=== PATIENT | male | born 1950 | race Caucasian/White ===

== ENCOUNTER 2018-02-28 18:03 | Emergency (ER) | payer OTHER ==
--- OUTSIDE RECORDS SUMMARY | 2018-02-28 18:05 | XMS REPORT | Clinical Summary ---
:1950 Author Organization [facility] Address [address] [place] [address] Phone Care Team Providers Name Role Phone Unavailable Primary Care Provider Unavailable Allergies No Known Allergies Current Medications Prescription Sig. Disp. Refills Start Date End Date Status atorvastatin Take 20 mg by Active (LIPITOR) 20 MG mouth daily. tablet amLODIPine (NORVASC) Take 1 tablet 0 02/14/2018 02/14/2019 Active 10 MG tablet (10 mg total) by mouth daily. lisinopril Take 1 tablet 0 02/14/2018 02/14/2019 Active (PRINIVIL,ZESTRIL) 20 (20 mg total) MG tablet by mouth daily. QUEtiapine (SEROQUEL) Take 1 tablet 0 02/14/2018 03/16/2018 Active 25 MG tablet (25 mg total) by mouth 2 (two) times daily for 30 days. senna-docusate Take 1 tablet 0 02/14/2018 02/14/2019 Active (SENOKOT S) 8.6-50 mg by mouth 2 per tablet (two) times daily. metoprolol Take 1 tablet 0 02/14/2018 02/14/2019 Active (TOPROL-XL) 100 MG 24 (100 mg total) hr tablet by mouth daily. enalapril (VASOTEC) Take 10 mg by 02/14/2018 Discontinued 10 MG tablet mouth daily. metoprolol Take 25 mg by 02/14/2018 Discontinued (LOPRESSOR) 25 MG mouth 2 (two) tablet times daily. fenofibrate (TRICOR) Take 145 mg by 02/14/2018 Discontinued 145 MG tablet mouth daily. montelukast Take 10 mg by 02/14/2018 Discontinued (SINGULAIR) 10 mg mouth nightly. tablet Active Problems Problem Noted Date Essential hypertension 02/11/2018 Aspiration pneumonia (HCC) 02/11/2018 Metabolic encephalopathy 02/11/2018 Oropharyngeal dysphagia 02/11/2018 ICH (intracerebral hemorrhage) ([facility]) 01/31/2018 Encounters Date Type Specialty Care Team Description 02/12/2018 Procedure Pass Gastroenterology 02/11/2018 Anesthesia Event Gastroenterology Harrison Pepper MD 02/11/2018 Procedure Pass Gastroenterology 02/10/2018 Anesthesia Event Gastroenterology Elysia Guillen, CLOTH INSPECTOR 02/06/2018 Anesthesia Event Gastroenterology Tang Ortiz CRNA 02/06/2018 Procedure Pass Gastroenterology 02/02/2018 Orders Only General Internal Medicine 01/31/2018 Hospital Intensive Care ButchYosvany miller Nontraumatic - Encounter MD Carlos cortical hemorrhage 02/14/2018 Giuseppe Forte of left cerebral MD Darrel hemisphere Baljeet Rueda ([facility]);Acute [place], encephalopathy;Margoth Emmanuel MD red consciousness [facility], Rebecca Coley MD 01/31/2018 Anesthesia Event Mary Kate Hallman, JONATHAN 01/31/2018 Procedure Pass 01/31/2018 Surgery Dion Gruber MD CRANIOTOMY after 02/27/2017 Social History Tobacco Use Types Packs/Day Years Used Date Never Assessed Sex Assigned at Date Recorded Not on file Last Filed Vital Signs Vital Sign Reading Time Taken Blood Pressure 153/79 02/14/2018 10:10 AM CDT Pulse 68 02/14/2018 10:08 AM CDT Temperature 36.5 C (97.7 F) 02/14/2018 7:52 AM CDT Respiratory Rate 21 02/14/2018 10:08 AM CDT Oxygen Saturation 98% 02/14/2018 10:08 AM CDT Inhaled Oxygen Concentration - - Weight 54.4 kg (119 lb 14.9 oz) 02/14/2018 4:00 AM CDT Height 170.2 cm (5' 7") 02/03/2018 2:20 PM CDT Body Mass Index 18.78 02/14/2018 4:00 AM CDT Plan of Treatment Not on file Implants Implanted Type Area Health Professor Device Expiration Model / Identifier Date Serial / Lot Scr Un3 [place] Self Drl 1.5x4mm [id number] - [id number] Fracture/ Left: RADHIKA: CRANIOMA [id number] / Implanted: Qty: 6 on 01/31/2018 by Dion Gruber MD Fixation Head XILLOFACIAL / Plt Rigid 2h [id number] - [id number] Fracture/ Left: RADHIKA:CRANIOMA [id number] / Implanted: Qty: 3 on 02/01/2018 by Dion Gruber MD Fixation Head XILLOFACIAL / Cath Bactiseal Evd [id number] - [id number] Neuro Left: J &J:CODMAN 2017 [id number] / Implanted: Qty: 1 on 02/01/2018 by Dion Gruber MD Head & SHURTLE / [id number] Procedures Procedure Name Priority Date/Time Associated Diagnosis Comments CRANIOTOMY 01/31/2018 8:00 PM CDT LEFT-SIDED INTRACRANAL SUBDURAL HEMATOMA after 02/27/2017 Results RHYTHM STRIP - SCAN (02/17/2018 2:00 PM)ECG 12 lead (02/14/2018 7:09 AM)Only the most recent of8 resultswithin the time period is included. Specimen Performing Laboratory Prepmatic Narrative Ventricular Rate 61 BPM Atrial Rate 61 BPM P-R Interval 156 ms QRS Duration 88 ms Q-T Interval 446 ms QTC Calculation(Bazett) 448 ms P [place] 46 degrees R [place] -4 degrees T [place] 7 degrees Normal sinus rhythm Moderate voltage criteria for LVH, may be normal variant Borderline ECG When compared with ECG of 13-FEB-2018 07:24, No significant change was found Confirmed by MD MARTINEZ MAJID ([id number]) on 02/14/2018 2:23:33 PM Procedure Note Interface, External Ris In - 02/14/2018 2:23 PM CDT Ventricular Rate 61 BPM Atrial Rate 61 BPM P-R Interval 156 ms QRS Duration 88 ms Q-T Interval 446 ms QTC Calculation(Bazett) 448 ms P [place] 46 degrees R [place] -4 degrees T [place] 7 degrees Normal sinus rhythm Moderate voltage criteria for LVH, may be normal variant Borderline ECG When compared with ECG of 13-FEB-2018 07:24, No significant change was found Confirmed by MD MARTINEZ MAJID ([id number]) on 02/14/2018 2:23:33 PM POC-Glucose meter (02/14/2018 5:18 AM)Only the most recent of42 resultswithin the time period is included. Component Value Ref Range POC-Glucose Meter 105Comment: TESTED AT [address] [place] 70 - 110 mg/dL [address] Specimen Performing Laboratory Blood [address] [address] CBC with platelet count + automated diff (02/14/2018 5:14 AM)Only the most recent of15 resultswithin the time period is included. Component Value Ref Range WBC 9.4 3.5 - 10.5 K/L RBC 4.25 (L) 4.63 - 6.08 M/L Hemoglobin 13.7 13.7 - 17.5 GM/DL Hematocrit 40.6 40.1 - 51.0 % MCV 95.5 (H) 79.0 - 92.2 fL MCH 32.2 25.7 - 32.2 pg MCHC 33.7 32.3 - 36.5 GM/DL RDW 13.0 11.6 - 14.4 % Platelets 321 150 - 450 K/CU MM MPV 11.0 9.4 - 12.4 fL nRBC 0 0 - 0 /100 WBC % Neutros 72 % % Lymphs 17 % % Monos 10 % % Eos 0 % % Baso 0 % # Neutros 6.77 (H) 1.78 - 5.38 K/L # Lymphs 1.57 1.32 - 3.57 K/L # Monos 0.91 (H) 0.30 - 0.82 K/L # Eos 0.00 (L) 0.04 - 0.54 K/L # Baso 0.04 0.01 - 0.08 K/L Immature Granulocytes-Relative 1 0 - 1 % Specimen Performing Laboratory Blood [address] [address] CBC with platelet count + automated diff (02/14/2018 5:14 AM)Only the most recent of15 resultswithin the time period is included. Specimen Performing Laboratory Blood Narrative The following orders were created for panel order CBC with platelet count + automated diff. Procedure Abnormality Status --------- ------ CBC with platelet count ...[[id number]]AbnormalFinal result Please view results for these tests on the individual orders. Magnesium (02/14/2018 5:14 AM)Only the most recent of15 resultswithin the time period is included. Component Value Ref Range Magnesium 2.0 1.6 - 2.6 mg/dL Specimen Performing Laboratory Blood [address] [address] Basic Metabolic Panel (02/14/2018 5:14 AM)Only the most recent of15 resultswithin the time period is included. Component Value Ref Range Sodium 143 136 - 145 meq/L Potassium 3.7 3.5 - 5.1 meq/L Chloride 113 (H) 98 - 107 meq/L CO2 22 22 - 29 meq/L BUN 14 7 - 21 mg/dL Creatinine 0.69 0.57 - 1.25 mg/dL Glucose 97 70 - 105 mg/dL Calcium 9.0 8.4 - 10.2 mg/dL EGFR 114Comment: ESTIMATED GFR IS NOT ACCURATE mL/min/1.73 sq m CREATININE CLEARANCE IN PREDICTING GLOMERULAR FILTRATION RATE. ESTIMATED GFR IS NOT APPLICABLE FOR DIALYSIS PATIENTS. Specimen Performing Laboratory Blood [address] [address] [place] esoph swallow funct with cine video (02/11/2018 12:10 PM) Specimen Performing Laboratory GE [facility] Narrative FINAL REPORT INDICATION: Dysphagia. TECHNIQUE: The patient was administered various consistencies of liquid and food mixed with barium. Swallowing was observed with the speech pathologist present. FINDINGS: There was laryngeal penetration with thin and nectar consistencies. No laryngeal penetration demonstrated with honey consistency. Please see report written by the speech pathologist for detailed report and recommendations. Fluoroscopy time: 1.3 minutes. A single cine clip of the patient swallowing was acquired. IMPRESSION: Laryngeal penetration. Signed: Connor Lockett MD Report Verified Date/Time:02/11/2018 13:56:12 Reading Location: [facility] C013X Ortho Consult Reading Room Procedure Note Interface, External Ris In - 02/11/2018 1:58 PM CDT FINAL REPORT INDICATION: Dysphagia. TECHNIQUE: The patient was administered various consistencies of liquid and food mixed with barium. Swallowing was observed with the speech pathologist present. FINDINGS: There was laryngeal penetration with thin and nectar consistencies. No laryngeal penetration demonstrated with honey consistency. Please see report written by the speech pathologist for detailed report and recommendations. Fluoroscopy time: 1.3 minutes. A single cine clip of the patient swallowing was acquired. IMPRESSION: Laryngeal penetration. Signed: Connor Lockett MD Report Verified Date/Time: 02/11/2018 13:56:12 Reading Location: [facility] C013X Ortho Consult Reading Room Vancomycin level, trough (02/10/2018 1:36 AM)Only the most recent of2 resultswithin the time period is included. Component Value Ref Range Vancomycin Tr 7.7 (L) 10.0 - 20.0 ug/mL Specimen Performing Laboratory Blood - Arm, [address] [address] Manual Differential (02/08/2018 5:10 AM)Only the most recent of2 resultswithin the time period is included. Component Value Ref Range % Neutros (manual) 81 % % Lymphs (manual) 6 % % Monos (manual) 9 % % Bands (manual) 4 0 - 10 % # Neutros (manual) 10.69 (H) 1.80 - 8.00 K/L # Lymphs (manual) 0.79 (L) 1.48 - 4.50 K/L # Monos (manual) 1.19 0.00 - 1.30 K/L # Bands (manual) 0.5 0.0 - 0.8 K/L Total Counted 100 Bands plus Segmented Neutrophils 11.22 WBC Morphology Normal RBC Morphology Normal Large Platelet Present Specimen Performing Laboratory Blood - Arm, [address] [address] aPTT (02/07/2018 5:10 AM)Only the most recent of2 resultswithin the time period is included. Component Value Ref Range PTT 32.3 22.5 - 36.0 seconds Specimen Performing Laboratory Blood [address] [address] Prothrombin time/INR (02/07/2018 5:10 AM)Only the most recent of3 resultswithin the time period is included. Component Value Ref Range Protime 17.4 (H) 11.7 - 14.7 seconds INR 1.4 <=5.9 Specimen Performing Laboratory Blood [address] [address] Narrative RECOMMENDED COUMADIN/WARFARIN INR THERAPY RANGES STANDARD DOSE: 2.0 - 3.0 Includes: PROPHYLAXIS for venous thrombosis, systemic embolization; TREATMENT for venous thrombosis and/or pulmonary embolus. HIGH RISK: Target INR is 2.5-3.5 for patients with mechanical heart valves. Urinalysis w/Microscopic (02/06/2018 11:48 PM) Component Value Ref Range Color, UA Yellow Clarity, UA Hazy Specific [place], UA 1.030 1.001 - 1.035 pH, UA 6.0 5.0 - 8.0 Protein, UA Negative Negative Glucose, UA Negative Negative Ketones, UA Negative Negative Bilirubin, UA Negative Negative Blood, UA Small (A) Negative Nitrite, UA Negative Negative Leukocytes, UA Trace (A) Negative Urobilinogen, UA 0.2 0.2 - 1.0 mg/dL RBC, UA 1 /HPF WBC, UA 2 /HPF Bacteria, UA Rare Specimen Source Specimen Performing Laboratory Urine [address] [address] Urine culture (02/06/2018 11:48 PM) Component Value Ref Range Result >100,000 col/mL Citrobacter werbinanni (A) Specimen Performing Laboratory Urine - Urine, Katz [address] [address] Organism Antibiotic Method Susceptibility Citrobacter holdeni Amikacin <=2: Susceptible Citrobacter holdeni Aztreonam <=1: Susceptible Citrobacter jessicakmanni Cefepime <=1: Susceptible Citrobacter werkmanni Cefoxitin >=64: Resistant Citrobacter werkmcharlottei Ceftazidime <=1: Susceptible Citrobacter jessicakmanni Ceftriaxone <=1: Susceptible Citrobacter werkmanni Ertapenem <=0.5: Susceptible Citrobacter werkmanni Gentamicin <=1: Susceptible Citrobacter werkmanni Levofloxacin 0.5: Susceptible Citrobacter werkmanni Meropenem <=0.25: Susceptible Citrobacter werkmanni Nitrofurantoin <=16: Susceptible Citrobacter werkmanni Piperacillin + Tazobactam <=4: Susceptible Citrobacter werkmanni Tetracycline <=1: Susceptible Citrobacter werkmanni Tobramycin <=1: Susceptible Citrobacter werkmanni Trimethoprim + Sulfamethoxazole <=20: Susceptible Blood culture (02/06/2018 11:07 PM)Only the most recent of2 resultswithin the time period is included. Component Value Ref Range Result No growth in 5 days Specimen Performing Laboratory Blood - Arm, Left [facility] [address] [place] [id number] XR chest 1 view portable / bedside (02/06/2018 9:00 PM)Only the most recent of3 resultswithin the time period is included. Specimen Performing Laboratory GE [facility] Narrative FINAL REPORT RAD, CHEST, 1 VIEW, NON DEPT INDICATION: fever, tachypnea, high risk of aspiration COMPARISON: February 01, 2018 FINDINGS: Portable frontal view of the chest. IMPRESSION: Support Lines: Endotracheal tube is been removed. The nasogastric tube is no longer apparent. A feeding tube is present and projects beyond the lower edge of the imaged volume. Lungs and pleura: Central congestive changes are improved compared to the prior examination. No new consolidation or effusion. No pneumothorax. Heart and mediastinum: Stable contours. Additional findings: None. Signed: JR Wilkerson Robert MD Report Verified Date/Time:02/06/2018 21:27:48 Reading Location: [address] Body Reading Room Procedure Note Interface, External Ris In - 02/06/2018 9:30 PM CDT FINAL REPORT RAD, CHEST, 1 VIEW, NON DEPT INDICATION: fever, tachypnea, high risk of aspiration COMPARISON: February 01, 2018 FINDINGS: Portable frontal view of the chest. IMPRESSION: Support Lines: Endotracheal tube is been removed. The nasogastric tube is no longer apparent. A feeding tube is present and projects beyond the lower edge of the imaged volume. Lungs and pleura: Central congestive changes are improved compared to the prior examination. No new consolidation or effusion. No pneumothorax. Heart and mediastinum: Stable contours. Additional findings: None. Signed: JR Wilkerson Robert MD Report Verified Date/Time: 02/06/2018 21:27:48 Reading Location: [facility] B1 C013Y CT Body Reading Room abdomen / KUB 1 view (02/06/2018 4:33 PM)Only the most recent of2 resultswithin the time period is included. Specimen Performing Laboratory GE RIS Narrative FINAL REPORT AP abdomen HISTORY: Feeding tube COMPARISON: 02/04/2018 IMPRESSION: Feeding tube advanced, remaining along the greater curvature the stomach, not transpyloric. Signed: Christiano Granados MD Report Verified Date/Time:02/06/2018 17:35:54 Reading Location: [facility] Reading Room Procedure Note Interface, External Ris In - 02/06/2018 5:38 PM CDT FINAL REPORT AP abdomen HISTORY: Feeding tube COMPARISON: 02/04/2018 IMPRESSION: Feeding tube advanced, remaining along the greater curvature the stomach, not transpyloric. Signed: Christiano Granados MD Report Verified Date/Time: 02/06/2018 17:35:54 Reading Location: [facility] Reading Room Phosphorus (02/06/2018 5:34 AM)Only the most recent of7 resultswithin the time period is included. Component Value Ref Range Phosphorus 3.2 2.3 - 4.7 mg/dL Specimen Performing Laboratory Blood - Arm, [place] [address] Sputum Culture + Gram Stain (02/05/2018 8:45 PM)Only the most recent of2 resultswithin the time period is included. Component Value Ref Range Result 3+ Staphylococcus aureus (A) Result 4+ Haemophilus influenzae (A)Comment: Beta-lactamase negative Gram Stain Result 4+ WBCs Gram Stain Result 0-5 epithelial cells Gram Stain Result 4+ gram negative coccobacilli Gram Stain Result 4+ gram positive cocci in chains, pairs and clusters Specimen Performing Laboratory Sputum - Suctioned [address] [address] Narrative 3+ Normal respiratory carla present Organism Antibiotic Method Susceptibility Staphylococcus aureus Clindamycin 0.25: Susceptible Staphylococcus aureus Erythromycin <=0.25: Susceptible Staphylococcus aureus Linezolid 2: Susceptible Staphylococcus aureus Oxacillin <=0.25: Susceptible Staphylococcus aureus Rifampin <=0.5: Susceptible Staphylococcus aureus Tetracycline <=1: Susceptible Staphylococcus aureus Trimethoprim + Sulfamethoxazole <=10: Susceptible Staphylococcus aureus Vancomycin <=0.5: Susceptible TRANSFUSION SERVICE REPORT - SCAN (02/05/2018 5:44 PM)Only the most recent of3 resultswithin the time period is included.Potassium (02/04/2018 5:43 PM) Component Value Ref Range Potassium 4.2 3.5 - 5.1 meq/L Specimen Performing Laboratory Blood [address] [address] Narrative Check Serum Phosphorus level 4 hours after IV phosphorus replacement or 8 hours after PO replacement completed. 8 hours after PO replacement completed Prepare RBC (02/04/2018 7:09 AM) Component Value Ref Range Unit ABO O Neg UNIT NUMBER [id number] Status WORK IN PROGRESS Blood Bank Product RED BLOOD CELLS PRODUCT CODE H4108L85 Unit ABO O Neg UNIT NUMBER [id number] Status WORK IN PROGRESS Blood Bank Product RED BLOOD CELLS PRODUCT CODE Q3358I94 CROSSMATCH COMPATIBLE CROSSMATCH COMPATIBLE Specimen Performing Laboratory [facility] [place] CT brain without IV contrast portable (02/03/2018 12:16 PM)Only the most recent of2 resultswithin the time period is included. Specimen Performing Laboratory [employer] Narrative FINAL REPORT CT head without contrast INDICATION: Follow up EVD removal. TECHNIQUE: Contiguous axial images through the head without contrast on the portable CT unit. This exam was performed according to our departmental dose optimization program which includes automated exposure control, adjustment of the mA and/or kV according to patient size and/or use of iterative reconstruction technique. COMPARISON: CT head 02/01/2018, CTA 01/31/2018 FINDINGS: Residual left posterior cerebral parenchyma hemorrhage is stable in volume. Intraventricular rupture is again noted with decreased volume of intraventricular hemorrhage and stable mild hydrocephalus post EVD removal. Subarachnoid hemorrhage has partially resorbed. Left occipital temporal edema and mass effect are stable with mild rightward septum pellucidum shift. There is mildly decreased pneumocephalus contouring the frontal lobes. There is stable possible trace subdural hemorrhage without mass effect. An enteric tube is in place with mild sinus mucosal disease and small volume mastoid air cell fluid. The globes remain proptotic. There is scalp surgical changes with a small subgaleal collection overlying the craniotomy site and increased scalp edema. IMPRESSION: Since 02/01/2018, partial resorption of subarachnoid and intraventricular blood and stable mild hydrocephalus post EVD removal. Residual left cerebral parenchymal hemorrhage, edema, and mass effect are stable. Signed: Shante Rojas MD Report Verified Date/Time:02/03/2018 13:09:24 Reading Location: [address] Neuro Reading Room Procedure Note Interface, External Ris In - 02/03/2018 1:11 PM CDT FINAL REPORT CT head without contrast INDICATION: Follow up EVD removal. TECHNIQUE: Contiguous axial images through the head without contrast on the portable CT unit. This exam was performed according to our departmental dose optimization program which includes automated exposure control, adjustment of the mA and/or kV according to patient size and/or use of iterative reconstruction technique. COMPARISON: CT head 02/01/2018, CTA 01/31/2018 FINDINGS: Residual left posterior cerebral parenchyma hemorrhage is stable in volume. Intraventricular rupture is again noted with decreased volume of intraventricular hemorrhage and stable mild hydrocephalus post EVD removal. Subarachnoid hemorrhage has partially resorbed. Left occipital temporal edema and mass effect are stable with mild rightward septum pellucidum shift. There is mildly decreased pneumocephalus contouring the frontal lobes. There is stable possible trace subdural hemorrhage without mass effect. An enteric tube is in place with mild sinus mucosal disease and small volume mastoid air cell fluid. The globes remain proptotic. There is scalp surgical changes with a small subgaleal collection overlying the craniotomy site and increased scalp edema. IMPRESSION: Since 02/01/2018, partial resorption of subarachnoid and intraventricular blood and stable mild hydrocephalus post EVD removal. Residual left cerebral parenchymal hemorrhage, edema, and mass effect are stable. Signed: Shante Rojas MD Report Verified Date/Time: 02/03/2018 13:09:24 Reading Location: [facility] C013V Neuro Reading Room Hepatitis panel, acute (02/03/2018 4:10 AM) Component Value Ref Range Hep A IgM Nonreactive Nonreactive Hep B C IgM Nonreactive Nonreactive Hepatitis C Ab Reactive (A) Nonreactive hepatitis B Surface Ag Nonreactive Nonreactive Specimen Performing Laboratory Blood [address] [address] Hepatic function panel (02/03/2018 4:10 AM)Only the most recent of2 resultswithin the time period is included. Component Value Ref Range Protein, Total 6.1 6.0 - 8.3 gm/dL Albumin 3.6 3.5 - 5.0 g/dL Total Bilirubin 1.1 0.2 - 1.2 mg/dL Bilirubin, Direct 0.5 0.1 - 0.5 mg/dL Alkaline Phosphatase 42 40 - 150 U/L AST 29 5 - 34 U/L ALT 16 6 - 55 U/L Specimen Performing Laboratory Blood [address] [address] Blood gas, arterial (02/02/2018 5:12 AM)Only the most recent of4 resultswithin the time period is included. Component Value Ref Range pH, Arterial 7.49 (H) 7.35 - 7.45 pCO2, Arterial 25 (L) 35 - 45 mmHg pO2, Arterial 68 (L) 80 - 90 mmHg O2 Sat, Arterial 94.9 (L) 96.0 - 97.0 % HCO3, Arterial 18 (L) 21 - 29 mmol/L Base Excess, Arterial -3.3 (L) -2.0 - 3.0 mmol/L Patient Temperature 37.3 C FIO2 21.0 % Specimen Performing Laboratory Blood, Arterial [address] [address] Prepare Leuko-Red PLT (02/01/2018 11:55 PM) Component Value Ref Range Unit ABO O Neg UNIT NUMBER [id number] Status TRANSFUSED Blood Bank Product PLATELETS PRODUCT CODE Q2070D04 Unit ABO O Neg UNIT NUMBER [id number] Status TRANSFUSED Blood Bank Product PLATELETS PRODUCT CODE [id number] Specimen Performing Laboratory Blood [employer] [place] Antibody identification (02/01/2018 2:58 PM) Component Value Ref Range ANTIBODY ID (ROMA) Anti-C Anti-D Anti-Fya Antibody Consult SIGNED OUTComment: Anti D, anti C, anti Fya identified. Transfuse D negative, C negative, Fya negative crossmatch compatible units as needed.Electronic Signature: Michael Yoon M.D. Specimen Performing Laboratory [employer] [place] Transfuse Leuko-Red PLT (02/01/2018 12:49 AM)Only the most recent of2 resultswithin the time period is included.Hemoglobin A1c (01/31/2018 9:25 PM) Component Value Ref Range Hemoglobin A1C 6.1 4.3 - 6.1 % Specimen Performing Laboratory Blood [facility] [address] [address] CTA carotid (01/31/2018 8:46 PM) Specimen Performing Laboratory [facility] Narrative FINAL REPORT CTA carotids and brain 01/31/2018 8:54 PM CLINICAL INDICATION: Intracranial hemorrhage COMPARISON: None available TECHNIQUE: Noncontrast axial CT images of the head were obtained. Subsequently, axial CT angiographic images of the upper chest, neck, and head were obtained, from which three-dimensional reconstructed images were created. Additional imaging series were created on an independent workstation using maximum intensity projection and volume rendered technique. This examination was performed according to our departmental dose optimization program, which includes automated exposure control, adjustment of the mA and/or kV according to patient size, and/or use of iterated reconstruction technique. FINDINGS: There is a large left posterior hemispheric intracranial hematoma measuring up to 7.7 cm AP by 5.3 cm transverse by 4.5 cm craniocaudal. There is associated small volume intraventricular hemorrhage and subarachnoid hemorrhage. There is mild obstructive hydrocephalus in the lateral ventricles. There is no current parenchymal herniation. There is no vessel occlusion or dissection in the intracranial or extracranial arterial vasculature. There is atherosclerotic plaque deposition in the left greater than right proximal cervical internal carotid arteries, resulting in 10% right and 33% left cervical internal carotid artery stenosis (NASCET criteria). Intracranially, there is mild stenosis in both carotid siphons, without remarkable branch vessel stenosis. There is no evident aneurysm or arteriovenous malformation. The visualized soft tissue is without worrisome finding. There are multilevel degenerative changes in the cervical spine, without high-grade central canal stenosis. Visualized support catheters are in satisfactory radiographic position. IMPRESSION: 1. Large volume left posterior hemispheric intraparenchymal hematoma with associated small volume intraventricular and subarachnoid hemorrhage and resultant mild obstructive hydrocephalus. 2. No evident aneurysm or arteriovenous malformation. 3. Mild intracranial Atherosclerotic vascular disease. 4. Spondylosis. Signed: Salas Wiseman MD Report Verified Date/Time:01/31/2018 21:00:54 Reading Location: [facility] Radiology Reading Room Procedure Note Interface, External Ris In - 01/31/2018 9:03 PM CDT FINAL REPORT CTA carotids and brain 01/31/2018 8:54 PM CLINICAL INDICATION: Intracranial hemorrhage COMPARISON: None available TECHNIQUE: Noncontrast axial CT images of the head were obtained. Subsequently, axial CT angiographic images of the upper chest, neck, and head were obtained, from which three-dimensional reconstructed images were created. Additional imaging series were created on an independent workstation using maximum intensity projection and volume rendered technique. This examination was performed according to our departmental dose optimization program, which includes automated exposure control, adjustment of the mA and/or kV according to patient size, and/or use of iterated reconstruction technique. FINDINGS: There is a large left posterior hemispheric intracranial hematoma measuring up to 7.7 cm AP by 5.3 cm transverse by 4.5 cm craniocaudal. There is associated small volume intraventricular hemorrhage and subarachnoid hemorrhage. There is mild obstructive hydrocephalus in the lateral ventricles. There is no current parenchymal herniation. There is no vessel occlusion or dissection in the intracranial or extracranial arterial vasculature. There is atherosclerotic plaque deposition in the left greater than right proximal cervical internal carotid arteries, resulting in 10% right and 33% left cervical internal carotid artery stenosis (NASCET criteria). Intracranially, there is mild stenosis in both carotid siphons, without remarkable branch vessel stenosis. There is no evident aneurysm or arteriovenous malformation. The visualized soft tissue is without worrisome finding. There are multilevel degenerative changes in the cervical spine, without high-grade central canal stenosis. Visualized support catheters are in satisfactory radiographic position. IMPRESSION: 1. Large volume left posterior hemispheric intraparenchymal hematoma with associated small volume intraventricular and subarachnoid hemorrhage and resultant mild obstructive hydrocephalus. 2. No evident aneurysm or arteriovenous malformation. 3. Mild intracranial Atherosclerotic vascular disease. 4. Spondylosis. Signed: Salas Wiseman MD Report Verified Date/Time: 01/31/2018 21:00:54 Reading Location: [facility] Radiology Reading Room brain (01/31/2018 8:46 PM) Specimen Performing Laboratory [email or web address] FINAL REPORT CTA carotids and brain 01/31/2018 8:54 PM CLINICAL INDICATION: Intracranial hemorrhage COMPARISON: None available TECHNIQUE: Noncontrast axial CT images of the head were obtained. Subsequently, axial CT angiographic images of the upper chest, neck, and head were obtained, from which three-dimensional reconstructed images were created. Additional imaging series were created on an independent workstation using maximum intensity projection and volume rendered technique. This examination was performed according to our departmental dose optimization program, which includes automated exposure control, adjustment of the mA and/or kV according to patient size, and/or use of iterated reconstruction technique. FINDINGS: There is a large left posterior hemispheric intracranial hematoma measuring up to 7.7 cm AP by 5.3 cm transverse by 4.5 cm craniocaudal. There is associated small volume intraventricular hemorrhage and subarachnoid hemorrhage. There is mild obstructive hydrocephalus in the lateral ventricles. There is no current parenchymal herniation. There is no vessel occlusion or dissection in the intracranial or extracranial arterial vasculature. There is atherosclerotic plaque deposition in the left greater than right proximal cervical internal carotid arteries, resulting in 10% right and 33% left cervical internal carotid artery stenosis (NASCET criteria). Intracranially, there is mild stenosis in both carotid siphons, without remarkable branch vessel stenosis. There is no evident aneurysm or arteriovenous malformation. The visualized soft tissue is without worrisome finding. There are multilevel degenerative changes in the cervical spine, without high-grade central canal stenosis. Visualized support catheters are in satisfactory radiographic position. IMPRESSION: 1. Large volume left posterior hemispheric intraparenchymal hematoma with associated small volume intraventricular and subarachnoid hemorrhage and resultant mild obstructive hydrocephalus. 2. No evident aneurysm or arteriovenous malformation. 3. Mild intracranial Atherosclerotic vascular disease. 4. Spondylosis. Signed: Salas Wiseman MD Report Verified Date/Time:01/31/2018 21:00:54 Reading Location: [facility] Radiology Reading Room Procedure Note Interface, External Ris In - 01/31/2018 9:03 PM CDT FINAL REPORT CTA carotids and brain 01/31/2018 8:54 PM CLINICAL INDICATION: Intracranial hemorrhage COMPARISON: None available TECHNIQUE: Noncontrast axial CT images of the head were obtained. Subsequently, axial CT angiographic images of the upper chest, neck, and head were obtained, from which three-dimensional reconstructed images were created. Additional imaging series were created on an independent workstation using maximum intensity projection and volume rendered technique. This examination was performed according to our departmental dose optimization program, which includes automated exposure control, adjustment of the mA and/or kV according to patient size, and/or use of iterated reconstruction technique. FINDINGS: There is a large left posterior hemispheric intracranial hematoma measuring up to 7.7 cm AP by 5.3 cm transverse by 4.5 cm craniocaudal. There is associated small volume intraventricular hemorrhage and subarachnoid hemorrhage. There is mild obstructive hydrocephalus in the lateral ventricles. There is no current parenchymal herniation. There is no vessel occlusion or dissection in the intracranial or extracranial arterial vasculature. There is atherosclerotic plaque deposition in the left greater than right proximal cervical internal carotid arteries, resulting in 10% right and 33% left cervical internal carotid artery stenosis (NASCET criteria). Intracranially, there is mild stenosis in both carotid siphons, without remarkable branch vessel stenosis. There is no evident aneurysm or arteriovenous malformation. The visualized soft tissue is without worrisome finding. There are multilevel degenerative changes in the cervical spine, without high-grade central canal stenosis. Visualized support catheters are in satisfactory radiographic position. IMPRESSION: 1. Large volume left posterior hemispheric intraparenchymal hematoma with associated small volume intraventricular and subarachnoid hemorrhage and resultant mild obstructive hydrocephalus. 2. No evident aneurysm or arteriovenous malformation. 3. Mild intracranial Atherosclerotic vascular disease. 4. Spondylosis. Signed: Salas Wiseman MD Report Verified Date/Time: 01/31/2018 21:00:54 Reading Location: [facility] Radiology Reading Room Lipid panel (01/31/2018 6:32 PM) Component Value Ref Range Triglycerides 85Comment: Specimen slightly hemolyzed mg/dL Cholesterol 174Comment: Specimen slightly hemolyzed mg/dL HDL 56 mg/dL LDL Calculated 101 mg/dL Specimen Performing Laboratory Blood [address] [address] Narrative Triglyceride Reference Range: Low Risk <150 [id number] High Risk 200-499 Very High Risk>=500 Cholesterol Reference Range: Low Risk <200 [id number] High Risk>240 HDL Cholesterol Reference Range: Low Risk >=60 High Risk <40 LDL Cholesterol Reference Range: Optimal<100 Near [id number] Very High >=190 Comprehensive metabolic panel (01/31/2018 6:32 PM) Component Value Ref Range Protein, Total 6.6Comment: Specimen slightly hemolyzed 6.0 - 8.3 gm/dL Albumin 4.3Comment: Specimen slightly hemolyzed 3.5 - 5.0 g/dL Alkaline Phosphatase 58 40 - 150 U/L Total Bilirubin 1.1Comment: Specimen slightly hemolyzed 0.2 - 1.2 mg/dL Sodium 138 136 - 145 meq/L Potassium 3.3 (L)Comment: Specimen slightly hemolyzed 3.5 - 5.1 meq/L Chloride 106 98 - 107 meq/L CO2 18 (L) 22 - 29 meq/L BUN 12 7 - 21 mg/dL Creatinine 0.85Comment: Specimen slightly hemolyzed 0.57 - 1.25 mg/dL Glucose 131 (H) 70 - 105 mg/dL Calcium 9.1 8.4 - 10.2 mg/dL AST 35 (H)Comment: Specimen slightly hemolyzed 5 - 34 U/L ALT 21Comment: Specimen slightly hemolyzed 6 - 55 U/L EGFR 90Comment: ESTIMATED GFR IS NOT ACCURATE mL/min/1.73 sq m CREATININE CLEARANCE IN PREDICTING GLOMERULAR FILTRATION RATE. ESTIMATED GFR IS NOT APPLICABLE FOR DIALYSIS PATIENTS. Specimen Performing Laboratory Blood [address] [address] Type and screen, automated (01/31/2018 6:30 PM) Component Value Ref Range ABO/RH AUTOMATED (BEAKER) O NEGATIVE Ab Scrn POSITIVEComment: ECHO 2 Specimen Performing Laboratory Blood [address] [address] Vitamin B12 and Folate (01/31/2018 6:30 PM) Component Value Ref Range Vitamin B12 340 213 - 816 pg/mL Folate 11.0 >=7.0 ng/mL Specimen Performing Laboratory Blood [address] [address] TSH/Free T4 If Indicated (01/31/2018 6:30 PM) Component Value Ref Range TSH 2.07 0.35 - 4.94 uIU/mL Specimen Performing Laboratory Blood [address] [address] RPR (01/31/2018 6:30 PM) Component Value Ref Range RPR Nonreactive Nonreactive Specimen Performing Laboratory Blood [address] [address] after 02/27/2017
--- OUTSIDE RECORDS SUMMARY | 2018-02-28 18:08 | XMS REPORT ---
:1950 Author Organization [facility] Address [address] [place] [address] Dr. Cordero [address] [place] [id number] Care Team Providers Name Role Phone SADAF MORENO Unavailable Unavailable Problems This patient has no known problems. Allergies, Adverse Reactions, Alerts This patient has no known allergies or adverse reactions. Medications This patient has no known medications. Results Test Description Test Time Test Comments Text Results Atomic Results Result Comments MAGNESIUM 2018-02-14 06:17:00 Test Item Value Reference Range Comments MAGNESIUM (BEAKER) (test wxfb=164) 2.0 mg/dL 1.6-2.6 BASIC METABOLIC [id number] 06:17:00 Test Item Value Reference Range Comments SODIUM (BEAKER) (test 143 meq/L 136-145 syjc=620) POTASSIUM (BEAKER) (test 3.7 meq/L 3.5-5.1 nipz=285) CHLORIDE (BEAKER) (test 113 meq/L 98-107 uomy=118) CO2 (BEAKER) (test 22 meq/L 22-29 xtgi=191) BLOOD UREA NITROGEN 14 mg/dL 7-21 (BEAKER) (test wwfk=829) CREATININE (BEAKER) (test 0.69 mg/dL 0.57-1.25 azte=288) GLUCOSE RANDOM (BEAKER) 97 mg/dL 70-105 (test quwh=113) CALCIUM (BEAKER) (test 9.0 mg/dL 8.4-10.2 ihhl=975) EGFR (BEAKER) (test 114 mL/min/1.73 sq m ESTIMATED GFR IS NOT cdqm=0820) ACCURATE CREATININE CLEARANCE IN PREDICTING GLOMERULAR FILTRATION RATE. ESTIMATED GFR IS NOT APPLICABLE FOR DIALYSIS PATIENTS. CBC W/PLT COUNT & AUTO [id number] 05:34:00 Test Item Value Reference Range Comments WHITE BLOOD CELL COUNT (BEAKER) (test yide=514) 9.4 K/ L 3.5-10.5 RED BLOOD CELL COUNT (BEAKER) (test zepb=970) 4.25 M/ L 4.63-6.08 HEMOGLOBIN (BEAKER) (test jpbn=953) 13.7 GM/DL 13.7-17.5 HEMATOCRIT (BEAKER) (test ngzg=932) 40.6 % 40.1-51.0 MEAN CORPUSCULAR VOLUME (BEAKER) (test zieq=215) 95.5 fL 79.0-92.2 MEAN CORPUSCULAR HEMOGLOBIN (BEAKER) (test 32.2 pg 25.7-32.2 vnej=023) MEAN CORPUSCULAR HEMOGLOBIN CONC (BEAKER) (test 33.7 GM/DL 32.3-36.5 wxmp=991) RED CELL DISTRIBUTION WIDTH (BEAKER) (test 13.0 % 11.6-14.4 vhjl=418) PLATELET COUNT (BEAKER) (test cknk=516) 321 K/CU MM 150-450 MEAN PLATELET VOLUME (BEAKER) (test dygf=010) 11.0 fL 9.4-12.4 NUCLEATED RED BLOOD CELLS (BEAKER) (test 0 /100 WBC 0-0 agxl=753) NEUTROPHILS RELATIVE PERCENT (BEAKER) (test 72 % nkii=057) LYMPHOCYTES RELATIVE PERCENT (BEAKER) (test 17 % pkcm=301) MONOCYTES RELATIVE PERCENT (BEAKER) (test 10 % tfqo=468) EOSINOPHILS RELATIVE PERCENT (BEAKER) (test 0 % tzdn=241) BASOPHILS RELATIVE PERCENT (BEAKER) (test 0 % akvf=440) NEUTROPHILS ABSOLUTE COUNT (BEAKER) (test 6.77 K/ L 1.78-5.38 frps=613) LYMPHOCYTES ABSOLUTE COUNT (BEAKER) (test 1.57 K/ L 1.32-3.57 tgwy=295) MONOCYTES ABSOLUTE COUNT (BEAKER) (test 0.91 K/ L 0.30-0.82 ivmf=160) EOSINOPHILS ABSOLUTE COUNT (BEAKER) (test 0.00 K/ L 0.04-0.54 hbkl=133) BASOPHILS ABSOLUTE COUNT (BEAKER) (test 0.04 K/ L 0.01-0.08 dami=989) IMMATURE GRANULOCYTES-RELATIVE PERCENT (BEAKER) 1 % 0-1 (test cicz=2744) POCT-GLUCOSE [id number] 05:21:00 Test Item Value Reference Range Comments POC-GLUCOSE METER (BEAKER) 105 mg/dL 70-[address] [facility] [address] [facility] (test iyxc=5405) [facility] [address] POCT-GLUCOSE [id number] 01:28:00 Test Item Value Reference Range Comments POC-GLUCOSE METER (BEAKER) 108 mg/dL 70-[address] [facility] [address] [facility] (test fnbn=7414) [facility] [address] [id number] 05:19:00 Test Item Value Reference Range Comments MAGNESIUM (BEAKER) (test mavy=648) 1.8 mg/dL 1.6-2.6 BASIC METABOLIC [id number] 05:19:00 Test Item Value Reference Range Comments SODIUM (BEAKER) (test 143 meq/L 136-145 czek=682) POTASSIUM (BEAKER) (test 3.8 meq/L 3.5-5.1 ozqd=333) CHLORIDE (BEAKER) (test 115 meq/L 98-107 yrxe=507) CO2 (BEAKER) (test 21 meq/L 22-29 lwpd=478) BLOOD UREA NITROGEN 18 mg/dL 7-21 (BEAKER) (test znsl=636) CREATININE (BEAKER) (test 0.71 mg/dL 0.57-1.25 pssi=189) GLUCOSE RANDOM (BEAKER) 104 mg/dL 70-105 (test ghoj=147) CALCIUM (BEAKER) (test 8.8 mg/dL 8.4-10.2 vwhq=892) EGFR (BEAKER) (test 111 mL/min/1.73 sq m ESTIMATED GFR IS NOT vtxq=1416) ACCURATE CREATININE CLEARANCE IN PREDICTING GLOMERULAR FILTRATION RATE. ESTIMATED GFR IS NOT APPLICABLE FOR DIALYSIS PATIENTS. CBC W/PLT COUNT & AUTO [id number] 04:56:00 Test Item Value Reference Range Comments WHITE BLOOD CELL COUNT (BEAKER) (test splh=340) 9.9 K/ L 3.5-10.5 RED BLOOD CELL COUNT (BEAKER) (test fwyu=838) 4.06 M/ L 4.63-6.08 HEMOGLOBIN (BEAKER) (test udpg=807) 12.8 GM/DL 13.7-17.5 HEMATOCRIT (BEAKER) (test awwt=835) 39.0 % 40.1-51.0 MEAN CORPUSCULAR VOLUME (BEAKER) (test xule=628) 96.1 fL 79.0-92.2 MEAN CORPUSCULAR HEMOGLOBIN (BEAKER) (test 31.5 pg 25.7-32.2 brnc=559) MEAN CORPUSCULAR HEMOGLOBIN CONC (BEAKER) (test 32.8 GM/DL 32.3-36.5 gvsg=848) RED CELL DISTRIBUTION WIDTH (BEAKER) (test 13.2 % 11.6-14.4 pzam=228) PLATELET COUNT (BEAKER) (test umch=096) 293 K/CU MM 150-450 MEAN PLATELET VOLUME (BEAKER) (test jrbd=630) 11.4 fL 9.4-12.4 NUCLEATED RED BLOOD CELLS (BEAKER) (test 0 /100 WBC 0-0 ubvi=619) NEUTROPHILS RELATIVE PERCENT (BEAKER) (test 72 % hvzk=393) LYMPHOCYTES RELATIVE PERCENT (BEAKER) (test 14 % rojx=565) MONOCYTES RELATIVE PERCENT (BEAKER) (test 12 % blmd=993) EOSINOPHILS RELATIVE PERCENT (BEAKER) (test 0 % lvzi=053) BASOPHILS RELATIVE PERCENT (BEAKER) (test 1 % svvi=738) NEUTROPHILS ABSOLUTE COUNT (BEAKER) (test 7.15 K/ L 1.78-5.38 jynz=997) LYMPHOCYTES ABSOLUTE COUNT (BEAKER) (test 1.38 K/ L 1.32-3.57 tbfi=339) MONOCYTES ABSOLUTE COUNT (BEAKER) (test 1.21 K/ L 0.30-0.82 zmcr=212) EOSINOPHILS ABSOLUTE COUNT (BEAKER) (test 0.00 K/ L 0.04-0.54 mjvp=090) BASOPHILS ABSOLUTE COUNT (BEAKER) (test 0.05 K/ L 0.01-0.08 yhbv=474) IMMATURE GRANULOCYTES-RELATIVE PERCENT (BEAKER) 1 % 0-1 (test lmco=0663) POCT-GLUCOSE [id number] 00:15:00 Test Item Value Reference Range Comments POC-GLUCOSE METER (BEAKER) 104 mg/dL 70-[address] [facility] [address] [facility] (test tabc=0426) [facility] [address] BLOOD [id number] 11:00:00 Test Item Value Reference Range Comments CULTURE (BEAKER) (test ltii=7458) No growth in 5 days BLOOD [id number] 11:00:00 Test Item Value Reference Range Comments CULTURE (BEAKER) (test szgh=9067) No growth in 5 days [id number] 06:39:00 Test Item Value Reference Range Comments MAGNESIUM (BEAKER) (test 2.2 mg/dL 1.6-2.6 Specimen slightly hemolyzed sjix=145) BASIC METABOLIC [id number] 06:39:00 Test Item Value Reference Range Comments SODIUM (BEAKER) (test 140 meq/L 136-145 raql=303) POTASSIUM (BEAKER) (test 4.1 meq/L 3.5-5.1 Specimen slightly ahtq=882) hemolyzed CHLORIDE (BEAKER) (test 113 meq/L 98-107 wwwh=454) CO2 (BEAKER) (test 18 meq/L 22-29 zymv=216) BLOOD UREA NITROGEN 17 mg/dL 7-21 (BEAKER) (test kjdq=271) CREATININE (BEAKER) (test 0.68 mg/dL 0.57-1.25 Specimen slightly akcq=138) hemolyzed GLUCOSE RANDOM (BEAKER) 104 mg/dL 70-105 (test qiau=643) CALCIUM (BEAKER) (test 9.3 mg/dL 8.4-10.2 pofr=041) EGFR (BEAKER) (test 116 mL/min/1.73 sq m ESTIMATED GFR IS NOT yiau=3363) ACCURATE CREATININE CLEARANCE IN PREDICTING GLOMERULAR FILTRATION RATE. ESTIMATED GFR IS NOT APPLICABLE FOR DIALYSIS PATIENTS. CBC W/PLT COUNT & AUTO [id number] 06:02:00 Test Item Value Reference Range Comments WHITE BLOOD CELL COUNT (BEAKER) (test dedh=622) 13.0 K/ L 3.5-10.5 RED BLOOD CELL COUNT (BEAKER) (test ezzm=694) 4.11 M/ L 4.63-6.08 HEMOGLOBIN (BEAKER) (test jzkt=214) 13.2 GM/DL 13.7-17.5 HEMATOCRIT (BEAKER) (test adhp=753) 39.7 % 40.1-51.0 MEAN CORPUSCULAR VOLUME (BEAKER) (test rsbb=775) 96.6 fL 79.0-92.2 MEAN CORPUSCULAR HEMOGLOBIN (BEAKER) (test 32.1 pg 25.7-32.2 cjor=129) MEAN CORPUSCULAR HEMOGLOBIN CONC (BEAKER) (test 33.2 GM/DL 32.3-36.5 jnbe=735) RED CELL DISTRIBUTION WIDTH (BEAKER) (test 13.2 % 11.6-14.4 hspe=910) PLATELET COUNT (BEAKER) (test nnqf=722) 300 K/CU MM 150-450 MEAN PLATELET VOLUME (BEAKER) (test ucar=014) 11.6 fL 9.4-12.4 NUCLEATED RED BLOOD CELLS (BEAKER) (test 0 /100 WBC 0-0 eijw=106) NEUTROPHILS RELATIVE PERCENT (BEAKER) (test 77 % beom=058) LYMPHOCYTES RELATIVE PERCENT (BEAKER) (test 11 % expd=677) MONOCYTES RELATIVE PERCENT (BEAKER) (test 11 % sfai=154) EOSINOPHILS RELATIVE PERCENT (BEAKER) (test 0 % fwcd=194) BASOPHILS RELATIVE PERCENT (BEAKER) (test 0 % nmmo=125) NEUTROPHILS ABSOLUTE COUNT (BEAKER) (test 10.02 K/ L 1.78-5.38 yned=785) LYMPHOCYTES ABSOLUTE COUNT (BEAKER) (test 1.47 K/ L 1.32-3.57 wqox=440) MONOCYTES ABSOLUTE COUNT (BEAKER) (test 1.40 K/ L 0.30-0.82 lnfp=925) EOSINOPHILS ABSOLUTE COUNT (BEAKER) (test 0.00 K/ L 0.04-0.54 hcae=870) BASOPHILS ABSOLUTE COUNT (BEAKER) (test 0.05 K/ L 0.01-0.08 jhir=121) IMMATURE GRANULOCYTES-RELATIVE PERCENT (BEAKER) 1 % 0-1 (test izwv=2541) FL, ESOPH, SWALLOW FUNCTION, WITH CINE OR [id number] 13:56:00Reason for exam:->dysphagiaFINAL REPORT INDICATION: Dysphagia. TECHNIQUE: The patient was administered various consistencies of liquid and food mixed with barium. Swallowing was observed with the speech pathologist present. FINDINGS:There was laryngeal penetration with thin and nectar consistencies. No laryngeal penetration demonstrated with honey consistency. Please see report written by the speech pathologist for detailed report and recommendations. Fluoroscopy time: 1.3 minutes.A single cine clip of the patient swallowing was acquired. IMPRESSION:Laryngeal penetration. Signed: Mateusz Villarreal MDReport Verified Date/Time: 02/11/2018 13:56:12 Reading Location: [facility] [id number] Ortho Consult Reading Room POCT-GLUCOSE [id number] 06:21:00 Test Item Value Reference Range Comments POC-GLUCOSE METER (BEAKER) 119 mg/dL 70-[address] [facility] [address] [facility] (test kxbc=0182) [facility] [address] [id number] 05:33:00 Test Item Value Reference Range Comments MAGNESIUM (BEAKER) (test ntzl=523) 1.7 mg/dL 1.6-2.6 BASIC METABOLIC [id number] 05:33:00 Test Item Value Reference Range Comments SODIUM (BEAKER) (test 140 meq/L 136-145 ohmr=704) POTASSIUM (BEAKER) (test 3.7 meq/L 3.5-5.1 omup=128) CHLORIDE (BEAKER) (test 111 meq/L 98-107 bsta=894) CO2 (BEAKER) (test 20 meq/L 22-29 vnsp=192) BLOOD UREA NITROGEN 18 mg/dL 7-21 (BEAKER) (test xtqw=804) CREATININE (BEAKER) (test 0.69 mg/dL 0.57-1.25 jxyz=226) GLUCOSE RANDOM (BEAKER) 119 mg/dL 70-105 (test rowk=237) CALCIUM (BEAKER) (test 9.4 mg/dL 8.4-10.2 kmiq=816) EGFR (BEAKER) (test 114 mL/min/1.73 sq m ESTIMATED GFR IS NOT mamo=8968) ACCURATE CREATININE CLEARANCE IN PREDICTING GLOMERULAR FILTRATION RATE. ESTIMATED GFR IS NOT APPLICABLE FOR DIALYSIS PATIENTS. CBC W/PLT COUNT & AUTO [id number] 05:14:00 Test Item Value Reference Range Comments WHITE BLOOD CELL COUNT (BEAKER) (test nnrq=402) 11.8 K/ L 3.5-10.5 RED BLOOD CELL COUNT (BEAKER) (test jcos=661) 4.18 M/ L 4.63-6.08 HEMOGLOBIN (BEAKER) (test bjjb=745) 13.2 GM/DL 13.7-17.5 HEMATOCRIT (BEAKER) (test mdsq=795) 39.5 % 40.1-51.0 MEAN CORPUSCULAR VOLUME (BEAKER) (test ouqo=416) 94.5 fL 79.0-92.2 MEAN CORPUSCULAR HEMOGLOBIN (BEAKER) (test 31.6 pg 25.7-32.2 cstx=783) MEAN CORPUSCULAR HEMOGLOBIN CONC (BEAKER) (test 33.4 GM/DL 32.3-36.5 nbbk=001) RED CELL DISTRIBUTION WIDTH (BEAKER) (test 13.1 % 11.6-14.4 kmva=961) PLATELET COUNT (BEAKER) (test mksd=518) 257 K/CU MM 150-450 MEAN PLATELET VOLUME (BEAKER) (test gjri=692) 11.7 fL 9.4-12.4 NUCLEATED RED BLOOD CELLS (BEAKER) (test 0 /100 WBC 0-0 qgre=561) NEUTROPHILS RELATIVE PERCENT (BEAKER) (test 77 % sftn=685) LYMPHOCYTES RELATIVE PERCENT (BEAKER) (test 12 % rtkj=929) MONOCYTES RELATIVE PERCENT (BEAKER) (test 10 % fvzd=572) EOSINOPHILS RELATIVE PERCENT (BEAKER) (test 0 % cgkc=593) BASOPHILS RELATIVE PERCENT (BEAKER) (test 0 % vstv=166) NEUTROPHILS ABSOLUTE COUNT (BEAKER) (test 9.12 K/ L 1.78-5.38 mtsf=140) LYMPHOCYTES ABSOLUTE COUNT (BEAKER) (test 1.39 K/ L 1.32-3.57 ghko=083) MONOCYTES ABSOLUTE COUNT (BEAKER) (test 1.21 K/ L 0.30-0.82 gibz=547) EOSINOPHILS ABSOLUTE COUNT (BEAKER) (test 0.00 K/ L 0.04-0.54 xdbj=622) BASOPHILS ABSOLUTE COUNT (BEAKER) (test 0.04 K/ L 0.01-0.08 kbzj=696) IMMATURE GRANULOCYTES-RELATIVE PERCENT (BEAKER) 1 % 0-1 (test viyi=8724) POCT-GLUCOSE [id number] 23:54:00 Test Item Value Reference Range Comments POC-GLUCOSE METER (BEAKER) 125 mg/dL 70-[address] [facility] [address] [facility] (test ciua=4812) [facility] [address] POCT-GLUCOSE [id number] 18:08:00 Test Item Value Reference Range Comments POC-GLUCOSE METER (BEAKER) 106 mg/dL 70-[address] [facility] [address] [facility] (test zslk=7401) [facility] [address] POCT-GLUCOSE [id number] 13:26:00 Test Item Value Reference Range Comments POC-GLUCOSE METER (BEAKER) 122 mg/dL 70-110 TESTED AT [address] (test tuci=3379) [facility] [address] POCT-GLUCOSE [id number] 06:11:00 Test Item Value Reference Range Comments POC-GLUCOSE METER (BEAKER) 121 mg/dL 70-110 TESTED AT [address] (test ipkp=7361) [facility] [address] VANCOMYCIN LEVEL, [id number] 02:13:00 Test Item Value Reference Range Comments VANCOMYCIN TROUGH (BEAKER) (test uxup=612) 7.7 ug/mL 10.0-20.0 [id number] 02:00:00 Test Item Value Reference Range Comments MAGNESIUM (BEAKER) (test ywpu=711) 1.7 mg/dL 1.6-2.6 BASIC METABOLIC [id number] 02:00:00 Test Item Value Reference Range Comments SODIUM (BEAKER) (test 141 meq/L 136-145 hnox=655) POTASSIUM (BEAKER) (test 3.7 meq/L 3.5-5.1 kekg=534) CHLORIDE (BEAKER) (test 113 meq/L 98-107 bqlj=393) CO2 (BEAKER) (test 18 meq/L 22-29 zefg=750) BLOOD UREA NITROGEN 20 mg/dL 7-21 (BEAKER) (test bdiw=017) CREATININE (BEAKER) (test 0.70 mg/dL 0.57-1.25 hdju=117) GLUCOSE RANDOM (BEAKER) 127 mg/dL 70-105 (test uuhf=010) CALCIUM (BEAKER) (test 8.8 mg/dL 8.4-10.2 nzmv=578) EGFR (BEAKER) (test 112 mL/min/1.73 sq m ESTIMATED GFR IS NOT pcaz=6912) ACCURATE CREATININE CLEARANCE IN PREDICTING GLOMERULAR FILTRATION RATE. ESTIMATED GFR IS NOT APPLICABLE FOR DIALYSIS PATIENTS. CBC W/PLT COUNT & AUTO [id number] 01:46:00 Test Item Value Reference Range Comments WHITE BLOOD CELL COUNT (BEAKER) (test oizx=119) 9.3 K/ L 3.5-10.5 RED BLOOD CELL COUNT (BEAKER) (test cmjb=749) 4.00 M/ L 4.63-6.08 HEMOGLOBIN (BEAKER) (test evho=843) 12.6 GM/DL 13.7-17.5 HEMATOCRIT (BEAKER) (test rpfj=771) 38.4 % 40.1-51.0 MEAN CORPUSCULAR VOLUME (BEAKER) (test lpup=831) 96.0 fL 79.0-92.2 MEAN CORPUSCULAR HEMOGLOBIN (BEAKER) (test 31.5 pg 25.7-32.2 ykko=887) MEAN CORPUSCULAR HEMOGLOBIN CONC (BEAKER) (test 32.8 GM/DL 32.3-36.5 cnxy=964) RED CELL DISTRIBUTION WIDTH (BEAKER) (test 13.2 % 11.6-14.4 dsuh=783) PLATELET COUNT (BEAKER) (test mcbl=211) 213 K/CU MM 150-450 MEAN PLATELET VOLUME (BEAKER) (test rjaf=317) 12.0 fL 9.4-12.4 NUCLEATED RED BLOOD CELLS (BEAKER) (test 0 /100 WBC 0-0 sagw=710) NEUTROPHILS RELATIVE PERCENT (BEAKER) (test 76 % hdgu=582) LYMPHOCYTES RELATIVE PERCENT (BEAKER) (test 12 % uouv=618) MONOCYTES RELATIVE PERCENT (BEAKER) (test 11 % xksa=294) EOSINOPHILS RELATIVE PERCENT (BEAKER) (test 0 % befr=413) BASOPHILS RELATIVE PERCENT (BEAKER) (test 0 % most=427) NEUTROPHILS ABSOLUTE COUNT (BEAKER) (test 7.01 K/ L 1.78-5.38 ehje=531) LYMPHOCYTES ABSOLUTE COUNT (BEAKER) (test 1.12 K/ L 1.32-3.57 jdig=648) MONOCYTES ABSOLUTE COUNT (BEAKER) (test 1.03 K/ L 0.30-0.82 dkpn=002) EOSINOPHILS ABSOLUTE COUNT (BEAKER) (test 0.00 K/ L 0.04-0.54 fpgn=755) BASOPHILS ABSOLUTE COUNT (BEAKER) (test 0.04 K/ L 0.01-0.08 lfjd=416) IMMATURE GRANULOCYTES-RELATIVE PERCENT (BEAKER) 1 % 0-1 (test piec=1249) POCT-GLUCOSE [id number] 00:38:00 Test Item Value Reference Range Comments POC-GLUCOSE METER (BEAKER) 116 mg/dL 70-110 TESTED AT [address] (test bnvf=7152) [place] [address] POCT-GLUCOSE [id number] 18:06:00 Test Item Value Reference Range Comments POC-GLUCOSE METER (BEAKER) 118 mg/dL 70-110 TESTED AT [address] (test htrb=7241) [place] [address] POCT-GLUCOSE [id number] 12:07:00 Test Item Value Reference Range Comments POC-GLUCOSE METER (BEAKER) 126 mg/dL 70-110 TESTED AT [address] (test npzr=5537) [place] [address] URINE [id number] 10:54:00 Test Item Value Reference Range Comments CULTURE ([facility]) (test CITROBACTER WERKMANNI >100,000 col/mL dzsq=1284) Citrobacter werkmanni Amikacin (test code=1) Aztreonam (test code=32) Cefepime (test code=51) Cefoxitin (test code=68) Ceftazidime (test code=27) Ceftriaxone (test code=52) Ertapenem (test code=38) Gentamicin (test code=18) Levofloxacin (test code=22) Meropenem (test code=34) Nitrofurantoin (test code=23) Piperacillin + Tazobactam (test code=29) Tetracycline (test code=2) Tobramycin (test code=25) Trimethoprim + Sulfamethoxazole (test code=47) CBC W/PLT COUNT & AUTO [id number] 10:20:00 Test Item Value Reference Range Comments WHITE BLOOD CELL COUNT (BEAKER) (test mbwh=201) 10.1 K/ L 3.5-10.5 RED BLOOD CELL COUNT (BEAKER) (test djou=133) 3.97 M/ L 4.63-6.08 HEMOGLOBIN (BEAKER) (test dhdv=324) 12.5 GM/DL 13.7-17.5 HEMATOCRIT (BEAKER) (test rhyz=333) 38.8 % 40.1-51.0 MEAN CORPUSCULAR VOLUME (BEAKER) (test wllp=790) 97.7 fL 79.0-92.2 MEAN CORPUSCULAR HEMOGLOBIN (BEAKER) (test 31.5 pg 25.7-32.2 licr=700) MEAN CORPUSCULAR HEMOGLOBIN CONC (BEAKER) (test 32.2 GM/DL 32.3-36.5 aiit=504) RED CELL DISTRIBUTION WIDTH (BEAKER) (test 13.5 % 11.6-14.4 qvra=744) PLATELET COUNT (BEAKER) (test fraj=307) 224 K/CU MM 150-450 MEAN PLATELET VOLUME (BEAKER) (test oerg=846) 11.6 fL 9.4-12.4 NUCLEATED RED BLOOD CELLS (BEAKER) (test 0 /100 WBC 0-0 pnwb=984) NEUTROPHILS RELATIVE PERCENT (BEAKER) (test 78 % uabo=390) LYMPHOCYTES RELATIVE PERCENT (BEAKER) (test 12 % yyzo=564) MONOCYTES RELATIVE PERCENT (BEAKER) (test 9 % nmit=554) EOSINOPHILS RELATIVE PERCENT (BEAKER) (test 0 % kcmo=140) BASOPHILS RELATIVE PERCENT (BEAKER) (test 0 % ziyz=424) NEUTROPHILS ABSOLUTE COUNT (BEAKER) (test 7.84 K/ L 1.78-5.38 ydtz=910) LYMPHOCYTES ABSOLUTE COUNT (BEAKER) (test 1.21 K/ L 1.32-3.57 ewyg=474) MONOCYTES ABSOLUTE COUNT (BEAKER) (test 0.95 K/ L 0.30-0.82 dkcj=951) EOSINOPHILS ABSOLUTE COUNT (BEAKER) (test 0.01 K/ L 0.04-0.54 ciuy=219) BASOPHILS ABSOLUTE COUNT (BEAKER) (test 0.04 K/ L 0.01-0.08 pblj=612) IMMATURE GRANULOCYTES-RELATIVE PERCENT (BEAKER) 1 % 0-1 (test xzkv=0781) [id number] 09:52:00 Test Item Value Reference Range Comments MAGNESIUM (BEAKER) (test slhu=491) 1.6 mg/dL 1.6-2.6 BASIC METABOLIC [id number] 09:52:00 Test Item Value Reference Range Comments SODIUM (BEAKER) (test 144 meq/L 136-145 vnht=812) POTASSIUM (BEAKER) (test 3.6 meq/L 3.5-5.1 rupd=506) CHLORIDE (BEAKER) (test 116 meq/L 98-107 fmgk=783) CO2 (BEAKER) (test 21 meq/L 22-29 xufe=790) BLOOD UREA NITROGEN 23 mg/dL 7-21 (BEAKER) (test gocf=637) CREATININE (BEAKER) (test 0.82 mg/dL 0.57-1.25 mypa=704) GLUCOSE RANDOM (BEAKER) 118 mg/dL 70-105 (test kuob=465) CALCIUM (BEAKER) (test 9.0 mg/dL 8.4-10.2 qcqw=942) EGFR (BEAKER) (test 94 mL/min/1.73 sq m ESTIMATED GFR IS NOT nqbt=7292) ACCURATE CREATININE CLEARANCE IN PREDICTING GLOMERULAR FILTRATION RATE. ESTIMATED GFR IS NOT APPLICABLE FOR DIALYSIS PATIENTS. POCT-GLUCOSE [id number] 06:02:00 Test Item Value Reference Range Comments POC-GLUCOSE METER (BEAKER) 117 mg/dL 70-110 TESTED AT [address] (test uzwh=9298) [facility] [address] SPUTUM CULTURE + GRAM [id number] 13:31:00 Test Item Value Reference Range Comments CULTURE (BEAKER) (test STAPHYLOCOCCUS AUREUS 3+ Staphylococcus hrjt=9853) aureus Clindamycin (test code=10) Erythromycin (test code=4) Linezolid (test code=40) Nitrofurantoin (test code=23) Oxacillin (test code=14) Rifampin (test code=43) Tetracycline (test code=2) Trimethoprim + Sulfamethoxazole (test code=47) Vancomycin (test code=13) CULTURE (BEAKER) (test 4+ Haemophilus eesv=5652) influenzaeBeta-lactama se negative GRAM STAIN RESULT 4+ WBCs (BEAKER) (test tdlk=1287) GRAM STAIN RESULT 0-5 epithelial cells (BEAKER) (test mdgu=028157) GRAM STAIN RESULT 4+ gram negative (BEAKER) (test coccobacilli lwvs=664036) GRAM STAIN RESULT 4+ gram positive cocci (BEAKER) (test in chains, pairs and qofo=760225) clusters 3+ Normal respiratory carla presentPOCT-GLUCOSE [id number] 12:11:00 Test Item Value Reference Range Comments POC-GLUCOSE METER (BEAKER) 130 mg/dL 70-[address] [facility] [address] (test orzf=1385) [place] [address] CBC W/PLT COUNT & AUTO [id number] 11:19:00 Test Item Value Reference Range Comments WHITE BLOOD CELL COUNT (BEAKER) (test nlpw=369) 13.2 K/ L 3.5-10.5 RED BLOOD CELL COUNT (BEAKER) (test dirq=536) 4.32 M/ L 4.63-6.08 HEMOGLOBIN (BEAKER) (test fwxv=581) 14.0 GM/DL 13.7-17.5 HEMATOCRIT (BEAKER) (test qdsh=829) 41.4 % 40.1-51.0 MEAN CORPUSCULAR VOLUME (BEAKER) (test jlgy=233) 95.8 fL 79.0-92.2 MEAN CORPUSCULAR HEMOGLOBIN (BEAKER) (test 32.4 pg 25.7-32.2 mhyf=011) MEAN CORPUSCULAR HEMOGLOBIN CONC (BEAKER) (test 33.8 GM/DL 32.3-36.5 ucho=873) RED CELL DISTRIBUTION WIDTH (BEAKER) (test 13.5 % 11.6-14.4 yvcn=161) PLATELET COUNT (BEAKER) (test dsic=972) 219 K/CU MM 150-450 MEAN PLATELET VOLUME (BEAKER) (test vwkl=443) 11.2 fL 9.4-12.4 NUCLEATED RED BLOOD CELLS (BEAKER) (test 0 /100 WBC 0-0 axtj=719) IMMATURE GRANULOCYTES-RELATIVE PERCENT (BEAKER) 1 % 0-1 (test gnoz=9197) (MANUAL DIFFERENTIAL)2018-02-08 11:19:00 Test Item Value Reference Range Comments NEUTROPHILS - REL (DIFF) (BEAKER) (test 81 % wfkd=4830) LYMPHOCYTES - REL (DIFF) (BEAKER) (test 6 % dvbh=6010) MONOCYTES - REL (DIFF) (BEAKER) (test xasm=8638) 9 % BANDS - REL (DIFF) (BEAKER) (test tjxl=1360) 4 % 0-10 NEUTROPHILS - ABS (DIFF) (BEAKER) (test 10.69 K/ L 1.80-8.00 autl=5883) LYMPHOCYTES - ABS (DIFF) (BEAKER) (test 0.79 K/ L 1.48-4.50 aavn=2498) MONOCYTES - ABS (DIFF) (BEAKER) (test feuo=9981) 1.19 K/ L 0.00-1.30 BANDS-ABS (DIFF) (BEAKER) (test fhas=6220) 0.5 K/ L 0.0-0.8 TOTAL COUNTED (BEAKER) (test bfxj=3747) 100 BANDS + SEGMENTED NEUTROPHILS (BEAKER) (test 11.22 uhzz=6732) WBC MORPHOLOGY (BEAKER) (test phsm=959) Normal RBC MORPHOLOGY (BEAKER) (test ykdm=778) Normal LARGE PLT(BEAKER) (test gwki=7311) Present VANCOMYCIN LEVEL, [id number] 10:54:00 Test Item Value Reference Range Comments VANCOMYCIN TROUGH (BEAKER) (test zqyb=642) 4.9 ug/mL 10.0-20.0 [id number] 05:55:00 Test Item Value Reference Range Comments MAGNESIUM (BEAKER) (test 2.1 mg/dL 1.6-2.6 Specimen slightly hemolyzed xhgj=499) BASIC METABOLIC [id number] 05:55:00 Test Item Value Reference Range Comments SODIUM (BEAKER) (test 150 meq/L 136-145 hzih=088) POTASSIUM (BEAKER) (test 3.7 meq/L 3.5-5.1 Specimen slightly bqmi=885) hemolyzed CHLORIDE (BEAKER) (test 120 meq/L 98-107 hevm=658) CO2 (BEAKER) (test 18 meq/L 22-29 mnpc=804) BLOOD UREA NITROGEN 28 mg/dL 7-21 (BEAKER) (test iowz=542) CREATININE (BEAKER) (test 0.95 mg/dL 0.57-1.25 Specimen slightly rfax=007) hemolyzed GLUCOSE RANDOM (BEAKER) 136 mg/dL 70-105 (test syix=180) CALCIUM (BEAKER) (test 9.6 mg/dL 8.4-10.2 vrbv=414) EGFR (BEAKER) (test 79 mL/min/1.73 sq m ESTIMATED GFR IS NOT ukvv=3553) ACCURATE CREATININE CLEARANCE IN PREDICTING GLOMERULAR FILTRATION RATE. ESTIMATED GFR IS NOT APPLICABLE FOR DIALYSIS PATIENTS. POCT-GLUCOSE [id number] 05:54:00 Test Item Value Reference Range Comments POC-GLUCOSE METER (BEAKER) 142 mg/dL 70-110 TESTED AT [address] (test mbdh=9712) [facility] [address] POCT-GLUCOSE [id number] 01:01:00 Test Item Value Reference Range Comments POC-GLUCOSE METER (BEAKER) 128 mg/dL 70-110 TESTED AT [address] (test jcbv=2973) [facility] [address] POCT-GLUCOSE [id number] 17:53:00 Test Item Value Reference Range Comments POC-GLUCOSE METER (BEAKER) 123 mg/dL 70-110 TESTED AT [address] (test pscw=5622) [facility] [address] POCT-GLUCOSE [id number] 12:36:00 Test Item Value Reference Range Comments POC-GLUCOSE METER (BEAKER) 136 mg/dL 70-110 TESTED AT [address] (test jqfr=2321) [facility] [address] CBC W/PLT COUNT & AUTO [id number] 11:39:00 Test Item Value Reference Range Comments WHITE BLOOD CELL COUNT (BEAKER) (test tuti=723) 14.1 K/ L 3.5-10.5 RED BLOOD CELL COUNT (BEAKER) (test wwzr=688) 4.59 M/ L 4.63-6.08 HEMOGLOBIN (BEAKER) (test ieiw=587) 14.7 GM/DL 13.7-17.5 HEMATOCRIT (BEAKER) (test ndxe=630) 43.4 % 40.1-51.0 MEAN CORPUSCULAR VOLUME (BEAKER) (test nobj=751) 94.6 fL 79.0-92.2 MEAN CORPUSCULAR HEMOGLOBIN (BEAKER) (test 32.0 pg 25.7-32.2 tqnz=247) MEAN CORPUSCULAR HEMOGLOBIN CONC (BEAKER) (test 33.9 GM/DL 32.3-36.5 bcsp=114) RED CELL DISTRIBUTION WIDTH (BEAKER) (test 13.3 % 11.6-14.4 nigx=165) PLATELET COUNT (BEAKER) (test weww=089) 227 K/CU MM 150-450 MEAN PLATELET VOLUME (BEAKER) (test mrjt=217) 10.6 fL 9.4-12.4 NUCLEATED RED BLOOD CELLS (BEAKER) (test 0 /100 WBC 0-0 hkhs=969) NEUTROPHILS RELATIVE PERCENT (BEAKER) (test 85 % eqsx=068) LYMPHOCYTES RELATIVE PERCENT (BEAKER) (test 3 % jtwu=727) MONOCYTES RELATIVE PERCENT (BEAKER) (test 11 % vcjw=503) EOSINOPHILS RELATIVE PERCENT (BEAKER) (test 0 % fzlg=596) BASOPHILS RELATIVE PERCENT (BEAKER) (test 0 % zimi=671) NEUTROPHILS ABSOLUTE COUNT (BEAKER) (test 11.93 K/ L 1.78-5.38 pcld=748) LYMPHOCYTES ABSOLUTE COUNT (BEAKER) (test 0.48 K/ L 1.32-3.57 lxbw=841) MONOCYTES ABSOLUTE COUNT (BEAKER) (test 1.57 K/ L 0.30-0.82 bqti=343) EOSINOPHILS ABSOLUTE COUNT (BEAKER) (test 0.00 K/ L 0.04-0.54 yiuv=768) BASOPHILS ABSOLUTE COUNT (BEAKER) (test 0.03 K/ L 0.01-0.08 uckc=789) IMMATURE GRANULOCYTES-RELATIVE PERCENT (BEAKER) 1 % 0-1 (test upaz=5062) (MANUAL DIFFERENTIAL)2018-02-07 11:39:00 Test Item Value Reference Range Comments TOTAL COUNTED (BEAKER) (test hcge=9720) WBC MORPHOLOGY (BEAKER) (test yjvl=048) Normal PLT MORPHOLOGY (BEAKER) (test dmcn=503) Normal RBC MORPHOLOGY (BEAKER) (test aohr=399) Normal POCT-GLUCOSE [id number] 07:00:00 Test Item Value Reference Range Comments POC-GLUCOSE METER (BEAKER) 101 mg/dL 70-110 TESTED AT [address] (test gtkx=1889) [facility] [address] BASIC METABOLIC [id number] 06:30:00 Test Item Value Reference Range Comments SODIUM (BEAKER) (test 153 meq/L 136-145 acqr=979) POTASSIUM (BEAKER) (test 3.5 meq/L 3.5-5.1 mcuz=444) CHLORIDE (BEAKER) (test 120 meq/L 98-107 lsmy=330) CO2 (BEAKER) (test 17 meq/L 22-29 iosu=092) BLOOD UREA NITROGEN 23 mg/dL 7-21 (BEAKER) (test apsg=531) CREATININE (BEAKER) (test 1.01 mg/dL 0.57-1.25 uneb=577) GLUCOSE RANDOM (BEAKER) 102 mg/dL 70-105 (test bktg=533) CALCIUM (BEAKER) (test 9.9 mg/dL 8.4-10.2 xiat=905) EGFR (BEAKER) (test 74 mL/min/1.73 sq m ESTIMATED GFR IS NOT hqug=1188) ACCURATE CREATININE CLEARANCE IN PREDICTING GLOMERULAR FILTRATION RATE. ESTIMATED GFR IS NOT APPLICABLE FOR DIALYSIS PATIENTS. Specimen slightly ictericPROTHROMBIN [id number] 05:52:00 Test Item Value Reference Range Comments PROTIME (BEAKER) (test sxmq=535) 17.4 seconds 11.7-14.7 INR (BEAKER) (test odfl=286) 1.4 <=5.9 RECOMMENDED COUMADIN/WARFARIN INR THERAPY RANGESSTANDARD DOSE: 2.0 - 3.0 Includes: PROPHYLAXIS forvenous thrombosis, systemic embolization; TREATMENT for venous thrombosis and/or pulmonary embolus.HIGH RISK: Target INR is 2.5-3.5 for patients with mechanical heart valves.[id number] 05:52:00 Test Item Value Reference Range Comments PARTIAL THROMBOPLASTIN TIME (BEAKER) (test 32.3 seconds 22.5-36.0 qobq=088) URINALYSIS W/ [id number] 00:07:00 Test Item Value Reference Range Comments COLOR (BEAKER) (test ifow=251) Yellow CLARITY (BEAKER) (test vvei=950) Hazy SPECIFIC GRAVITY UA (BEAKER) (test vkhz=463) 1.030 1.001-1.035 PH UA (BEAKER) (test djyi=986) 6.0 5.0-8.0 PROTEIN UA (BEAKER) (test zqyc=018) Negative Negative GLUCOSE UA (BEAKER) (test vain=753) Negative Negative KETONES UA (BEAKER) (test mgmt=691) Negative Negative BILIRUBIN UA (BEAKER) (test gjla=085) Negative Negative BLOOD UA (BEAKER) (test ecrp=740) Small Negative NITRITE UA (BEAKER) (test clqg=019) Negative Negative LEUKOCYTE ESTERASE UA (BEAKER) (test rawr=683) Trace Negative UROBILINOGEN UA (BEAKER) (test nffw=587) 0.2 mg/dL 0.2-1.0 RBC UA (BEAKER) (test ejfg=042) 1 /HPF WBC UA (BEAKER) (test erkg=353) 2 /HPF BACTERIA (BEAKER) (test iopd=115) Rare SOURCE(BEAKER) (test emkh=9377) POCT-GLUCOSE [id number] 23:07:00 Test Item Value Reference Range Comments POC-GLUCOSE METER (BEAKER) 109 mg/dL 70-110 TESTED AT [address] (test tenn=7862) [facility] [address] RAD, CHEST, 1 VIEW, NON [id number] 21:27:00Reason for exam:->fever, tachypnea, high risk of aspirationShould this be performed at the bedside?-> YesFINAL REPORT RAD, CHEST, 1 VIEW, NON DEPT INDICATION: fever, tachypnea, high risk of aspiration COMPARISON: February 01, 2018 FINDINGS: Portable frontal view of the chest. IMPRESSION: Support Lines: Endotracheal tube is been removed. The nasogastric tube is no longer apparent. Afeeding tube is present and projects beyond the lower edge of the imaged volume. Lungs and pleura: Central congestive changes are improved compared to the prior examination. No new consolidation or effusion. No pneumothorax.Heart and mediastinum: Stable contours. Additional findings: None. Signed: JR Wilkerson Robert MDReport Verified Date/Time: 02/06/2018 21:27:48 Reading Location: [address] Body Reading Room POCT-GLUCOSE [id number] 17:40:00 Test Item Value Reference Range Comments POC-GLUCOSE METER (BEAKER) 108 mg/dL 70-110 TESTED AT [address] (test zrgm=0942) [facility] [address] RAD, ABDOMEN/KUB, 1 VIEW [id number] 17:35:00Reason for exam:->check corpak placementFINAL REPORT AP abdomen HISTORY: Feeding tube COMPARISON: 02/04/2018 IMPRESSION:Feeding tube advanced, remaining along the greater curvature the stomach, not transpyloric. Signed:Christiano Burk MDReport Verified Date/Time: 02/06/2018 17:35:54 Reading Location: [facility] Reading Room Electronically signed by: CHRISTIANO BURK M.D. on 2017 05:35 PMPOCT-GLUCOSE [id number] 11:47:00 Test Item Value Reference Range Comments POC-GLUCOSE METER (BEAKER) 108 mg/dL 70-110 TESTED AT [address] (test cacd=3722) [place] [address] [id number] 06:20:00 Test Item Value Reference Range Comments PHOSPHORUS (BEAKER) (test ejie=824) 3.2 mg/dL 2.3-4.7 [id number] 06:20:00 Test Item Value Reference Range Comments MAGNESIUM (BEAKER) (test swxs=712) 1.9 mg/dL 1.6-2.6 BASIC METABOLIC [id number] 06:20:00 Test Item Value Reference Range Comments SODIUM (BEAKER) (test 143 meq/L 136-145 xhaa=847) POTASSIUM (BEAKER) (test 3.9 meq/L 3.5-5.1 jufl=166) CHLORIDE (BEAKER) (test 114 meq/L 98-107 vbah=197) CO2 (BEAKER) (test 20 meq/L 22-29 djof=675) BLOOD UREA NITROGEN 22 mg/dL 7-21 (BEAKER) (test veia=716) CREATININE (BEAKER) (test 0.85 mg/dL 0.57-1.25 ofdv=125) GLUCOSE RANDOM (BEAKER) 121 mg/dL 70-105 (test ecai=415) CALCIUM (BEAKER) (test 10.0 mg/dL 8.4-10.2 pjrw=506) EGFR (BEAKER) (test 90 mL/min/1.73 sq m ESTIMATED GFR IS NOT iodq=8999) ACCURATE CREATININE CLEARANCE IN PREDICTING GLOMERULAR FILTRATION RATE. ESTIMATED GFR IS NOT APPLICABLE FOR DIALYSIS PATIENTS. POCT-GLUCOSE [id number] 06:18:00 Test Item Value Reference Range Comments POC-GLUCOSE METER (BEAKER) 117 mg/dL 70-110 TESTED AT [address] (test czwo=4419) [place] [address] CBC W/PLT COUNT & AUTO [id number] 06:00:00 Test Item Value Reference Range Comments WHITE BLOOD CELL COUNT (BEAKER) (test qgun=990) 10.5 K/ L 3.5-10.5 RED BLOOD CELL COUNT (BEAKER) (test tgef=433) 4.52 M/ L 4.63-6.08 HEMOGLOBIN (BEAKER) (test ttsd=111) 14.4 GM/DL 13.7-17.5 HEMATOCRIT (BEAKER) (test yzsv=194) 42.1 % 40.1-51.0 MEAN CORPUSCULAR VOLUME (BEAKER) (test nufr=674) 93.1 fL 79.0-92.2 MEAN CORPUSCULAR HEMOGLOBIN (BEAKER) (test 31.9 pg 25.7-32.2 fhqy=713) MEAN CORPUSCULAR HEMOGLOBIN CONC (BEAKER) (test 34.2 GM/DL 32.3-36.5 mlkk=838) RED CELL DISTRIBUTION WIDTH (BEAKER) (test 13.2 % 11.6-14.4 zunx=061) PLATELET COUNT (BEAKER) (test okfd=834) 204 K/CU MM 150-450 MEAN PLATELET VOLUME (BEAKER) (test okpc=914) 10.7 fL 9.4-12.4 NUCLEATED RED BLOOD CELLS (BEAKER) (test 0 /100 WBC 0-0 fkvj=867) NEUTROPHILS RELATIVE PERCENT (BEAKER) (test 77 % qdnh=030) LYMPHOCYTES RELATIVE PERCENT (BEAKER) (test 8 % jjun=734) MONOCYTES RELATIVE PERCENT (BEAKER) (test 15 % fxtm=974) EOSINOPHILS RELATIVE PERCENT (BEAKER) (test 0 % jwpj=048) BASOPHILS RELATIVE PERCENT (BEAKER) (test 0 % cjuy=232) NEUTROPHILS ABSOLUTE COUNT (BEAKER) (test 8.06 K/ L 1.78-5.38 fpie=978) LYMPHOCYTES ABSOLUTE COUNT (BEAKER) (test 0.83 K/ L 1.32-3.57 tjxd=969) MONOCYTES ABSOLUTE COUNT (BEAKER) (test 1.53 K/ L 0.30-0.82 lfoi=056) EOSINOPHILS ABSOLUTE COUNT (BEAKER) (test 0.00 K/ L 0.04-0.54 tikn=186) BASOPHILS ABSOLUTE COUNT (BEAKER) (test 0.03 K/ L 0.01-0.08 sqlf=419) IMMATURE GRANULOCYTES-RELATIVE PERCENT (BEAKER) 0 % 0-1 (test ythu=0340) POCT-GLUCOSE [id number] 00:52:00 Test Item Value Reference Range Comments POC-GLUCOSE METER (BEAKER) 129 mg/dL 70-110 TESTED AT [address] (test mieb=8510) [facility] [address] PROTHROMBIN [id number] 00:32:00 Test Item Value Reference Range Comments PROTIME (BEAKER) (test volc=562) 15.2 seconds 11.7-14.7 INR (BEAKER) (test ncgu=763) 1.2 <=5.9 RECOMMENDED COUMADIN/WARFARIN INR THERAPY RANGESSTANDARD DOSE: 2.0 - 3.0 Includes: PROPHYLAXIS forvenous thrombosis, systemic embolization; TREATMENT for venous thrombosis and/or pulmonary embolus.HIGH RISK: Target INR is 2.5-3.5 for patients with mechanical heart valves.POCT-GLUCOSE [id number] 00:25:00 Test Item Value Reference Range Comments POC-GLUCOSE METER (BEAKER) 113 mg/dL 70-110 TESTED AT [address] (test nyyp=9094) [place] [id number] POCT-GLUCOSE [id number] 18:42:00 Test Item Value Reference Range Comments POC-GLUCOSE METER (BEAKER) 131 mg/dL 70-110 TESTED AT [address] (test tacp=9564) [place] [id number] BASIC METABOLIC [id number] 15:45:00 Test Item Value Reference Range Comments SODIUM (BEAKER) (test 143 meq/L 136-145 vxir=249) POTASSIUM (BEAKER) (test 3.5 meq/L 3.5-5.1 cswx=662) CHLORIDE (BEAKER) (test 114 meq/L 98-107 bjmu=885) CO2 (BEAKER) (test 17 meq/L 22-29 djky=486) BLOOD UREA NITROGEN 19 mg/dL 7-21 (BEAKER) (test vood=719) CREATININE (BEAKER) (test 0.71 mg/dL 0.57-1.25 rrjx=903) GLUCOSE RANDOM (BEAKER) 118 mg/dL 70-105 (test kmjb=046) CALCIUM (BEAKER) (test 9.4 mg/dL 8.4-10.2 hrbs=634) EGFR (BEAKER) (test 111 mL/min/1.73 sq m ESTIMATED GFR IS NOT kscb=4997) ACCURATE CREATININE CLEARANCE IN PREDICTING GLOMERULAR FILTRATION RATE. ESTIMATED GFR IS NOT APPLICABLE FOR DIALYSIS PATIENTS. POCT-GLUCOSE [id number] 12:52:00 Test Item Value Reference Range Comments POC-GLUCOSE METER (BEAKER) 101 mg/dL 70-[address] [facility] [address] [facility] (test uzsz=2068) [facility] [address] BASIC METABOLIC [id number] 11:57:00 Test Item Value Reference Range Comments SODIUM (BEAKER) (test 146 meq/L 136-145 This is a corrected cbzz=872) result. Previous result was 141 meq/L on 02/05/2018 at 0751 CDT POTASSIUM (BEAKER) (test 3.5 meq/L 3.5-5.1 jujo=560) CHLORIDE (BEAKER) (test 115 meq/L 98-107 ldro=367) CO2 (BEAKER) (test 16 meq/L 22-29 jmsp=343) BLOOD UREA NITROGEN 19 mg/dL 7-21 (BEAKER) (test josn=545) CREATININE (BEAKER) (test 0.74 mg/dL 0.57-1.25 himq=365) GLUCOSE RANDOM (BEAKER) 111 mg/dL 70-105 (test tudf=862) CALCIUM (BEAKER) (test 9.1 mg/dL 8.4-10.2 vjai=408) EGFR (BEAKER) (test 105 mL/min/1.73 sq m ESTIMATED GFR IS NOT mmmm=5086) ACCURATE CREATININE CLEARANCE IN PREDICTING GLOMERULAR FILTRATION RATE. ESTIMATED GFR IS NOT APPLICABLE FOR DIALYSIS PATIENTS. [id number] 07:51:00 Test Item Value Reference Range Comments PHOSPHORUS (BEAKER) (test qjwq=820) 2.9 mg/dL 2.3-4.7 [id number] 07:51:00 Test Item Value Reference Range Comments MAGNESIUM (BEAKER) (test chwl=697) 2.1 mg/dL 1.6-2.6 POCT-GLUCOSE [id number] 05:53:00 Test Item Value Reference Range Comments POC-GLUCOSE METER (BEAKER) 114 mg/dL 70-[address] [facility] [address] (test fmmf=1421) [place] [address] CBC W/PLT COUNT & AUTO [id number] 04:49:00 Test Item Value Reference Range Comments WHITE BLOOD CELL COUNT (BEAKER) (test zacr=136) 7.3 K/ L 3.5-10.5 RED BLOOD CELL COUNT (BEAKER) (test tyfs=951) 4.38 M/ L 4.63-6.08 HEMOGLOBIN (BEAKER) (test rhij=173) 14.2 GM/DL 13.7-17.5 HEMATOCRIT (BEAKER) (test ctwe=657) 40.9 % 40.1-51.0 MEAN CORPUSCULAR VOLUME (BEAKER) (test inua=033) 93.4 fL 79.0-92.2 MEAN CORPUSCULAR HEMOGLOBIN (BEAKER) (test 32.4 pg 25.7-32.2 zvym=409) MEAN CORPUSCULAR HEMOGLOBIN CONC (BEAKER) (test 34.7 GM/DL 32.3-36.5 jmwr=086) RED CELL DISTRIBUTION WIDTH (BEAKER) (test 13.1 % 11.6-14.4 lxpx=798) PLATELET COUNT (BEAKER) (test upim=464) 161 K/CU MM 150-450 MEAN PLATELET VOLUME (BEAKER) (test gyzt=018) 10.6 fL 9.4-12.4 NUCLEATED RED BLOOD CELLS (BEAKER) (test 0 /100 WBC 0-0 zifv=367) NEUTROPHILS RELATIVE PERCENT (BEAKER) (test 70 % zahf=771) LYMPHOCYTES RELATIVE PERCENT (BEAKER) (test 11 % lkpi=753) MONOCYTES RELATIVE PERCENT (BEAKER) (test 18 % jiwm=830) EOSINOPHILS RELATIVE PERCENT (BEAKER) (test 0 % igml=850) BASOPHILS RELATIVE PERCENT (BEAKER) (test 1 % enkh=840) NEUTROPHILS ABSOLUTE COUNT (BEAKER) (test 5.15 K/ L 1.78-5.38 dmmg=933) LYMPHOCYTES ABSOLUTE COUNT (BEAKER) (test 0.79 K/ L 1.32-3.57 ofcy=251) MONOCYTES ABSOLUTE COUNT (BEAKER) (test 1.31 K/ L 0.30-0.82 xzuk=169) EOSINOPHILS ABSOLUTE COUNT (BEAKER) (test 0.00 K/ L 0.04-0.54 vvvt=352) BASOPHILS ABSOLUTE COUNT (BEAKER) (test 0.04 K/ L 0.01-0.08 wkiy=839) IMMATURE GRANULOCYTES-RELATIVE PERCENT (BEAKER) 1 % 0-1 (test ljzu=2471) POCT-GLUCOSE [id number] 00:02:00 Test Item Value Reference Range Comments POC-GLUCOSE METER (BEAKER) 115 mg/dL 70-110 TESTED AT [address] (test wbny=7802) [place] [address] POCT-GLUCOSE [id number] 19:23:00 Test Item Value Reference Range Comments POC-GLUCOSE METER (BEAKER) 108 mg/dL 70-110 TESTED AT [address] (test bsjs=2141) [place] [address] [id number] 18:25:00 Test Item Value Reference Range Comments MAGNESIUM (BEAKER) (test pvqt=508) 1.9 mg/dL 1.6-2.6 Check Serum Phosphorus level 4 hours after IV phosphorus replacement or 8 hours after PO replacementcompleted.8 hours after PO replacement [id number] 18:25:00 Test Item Value Reference Range Comments PHOSPHORUS (BEAKER) (test zigl=597) 2.7 mg/dL 2.3-4.7 Check Serum Phosphorus level 4 hours after IV phosphorus replacement or 8 hours after PO replacementcompleted.8 hours after PO replacement [id number] 18:25:00 Test Item Value Reference Range Comments POTASSIUM (BEAKER) (test tkcy=856) 4.2 meq/L 3.5-5.1 Check Serum Phosphorus level 4 hours after IV phosphorus replacement or 8 hours after PO replacementcompleted.8 hours after PO replacement completedRAD, ABDOMEN /KUB, 1 VIEW [id number] 13:13:00Reason for exam:->corpak Should this be performed at the bedside?->YesFINAL REPORT AP abdomen HISTORY: Feeding tube COMPARISON: None IMPRESSION:Feeding tube present projecting within the stomach. Bowel gas pattern not well assessed but grossly nonobstructive. Signed: Christiano Burk MDReport Verified Date/Time: 2017 13:13:34 Reading Location: [facility] Women POCT-GLUCOSE [id number] 12:24:00 Test Item Value Reference Range Comments POC-GLUCOSE METER (BEAKER) 103 mg/dL 70-110 TESTED AT [place] [id number] [facility] (test luxz=0244) [facility] [address] POCT-GLUCOSE [id number] 06:15:00 Test Item Value Reference Range Comments POC-GLUCOSE METER (BEAKER) 95 mg/dL 70-110 TESTED AT [address] (test rqsc=4446) [facility] [address] [id number] 03:37:00 Test Item Value Reference Range Comments PHOSPHORUS (BEAKER) (test qmme=219) 2.2 mg/dL 2.3-4.7 [id number] 03:37:00 Test Item Value Reference Range Comments MAGNESIUM (BEAKER) (test wbxa=508) 1.7 mg/dL 1.6-2.6 BASIC METABOLIC [id number] 03:37:00 Test Item Value Reference Range Comments SODIUM (BEAKER) (test 141 meq/L 136-145 xery=581) POTASSIUM (BEAKER) (test 3.8 meq/L 3.5-5.1 vfcg=253) CHLORIDE (BEAKER) (test 113 meq/L 98-107 wauk=341) CO2 (BEAKER) (test 17 meq/L 22-29 twrl=202) BLOOD UREA NITROGEN 16 mg/dL 7-21 (BEAKER) (test hsbf=565) CREATININE (BEAKER) (test 0.80 mg/dL 0.57-1.25 eizj=262) GLUCOSE RANDOM (BEAKER) 99 mg/dL 70-105 (test ngxs=779) CALCIUM (BEAKER) (test 8.1 mg/dL 8.4-10.2 cmcw=016) EGFR (BEAKER) (test 96 mL/min/1.73 sq m ESTIMATED GFR IS NOT gast=4112) ACCURATE CREATININE CLEARANCE IN PREDICTING GLOMERULAR FILTRATION RATE. ESTIMATED GFR IS NOT APPLICABLE FOR DIALYSIS PATIENTS. CBC W/PLT COUNT & AUTO [id number] 03:36:00 Test Item Value Reference Range Comments WHITE BLOOD CELL COUNT (BEAKER) (test xkfn=099) 7.1 K/ L 3.5-10.5 RED BLOOD CELL COUNT (BEAKER) (test mjgf=600) 4.33 M/ L 4.63-6.08 HEMOGLOBIN (BEAKER) (test klgc=644) 13.6 GM/DL 13.7-17.5 HEMATOCRIT (BEAKER) (test uufj=049) 40.1 % 40.1-51.0 MEAN CORPUSCULAR VOLUME (BEAKER) (test lbac=379) 92.6 fL 79.0-92.2 MEAN CORPUSCULAR HEMOGLOBIN (BEAKER) (test 31.4 pg 25.7-32.2 fgpl=194) MEAN CORPUSCULAR HEMOGLOBIN CONC (BEAKER) (test 33.9 GM/DL 32.3-36.5 hpcl=238) RED CELL DISTRIBUTION WIDTH (BEAKER) (test 12.8 % 11.6-14.4 mjqx=792) PLATELET COUNT (BEAKER) (test rqyf=059) 169 K/CU MM 150-450 MEAN PLATELET VOLUME (BEAKER) (test jhqr=037) 10.4 fL 9.4-12.4 NUCLEATED RED BLOOD CELLS (BEAKER) (test 0 /100 WBC 0-0 puxl=796) NEUTROPHILS RELATIVE PERCENT (BEAKER) (test 78 % jhaj=504) LYMPHOCYTES RELATIVE PERCENT (BEAKER) (test 9 % vhtw=530) MONOCYTES RELATIVE PERCENT (BEAKER) (test 13 % ksyx=809) EOSINOPHILS RELATIVE PERCENT (BEAKER) (test 0 % pdye=286) BASOPHILS RELATIVE PERCENT (BEAKER) (test 0 % xefy=383) NEUTROPHILS ABSOLUTE COUNT (BEAKER) (test 5.55 K/ L 1.78-5.38 pjoo=202) LYMPHOCYTES ABSOLUTE COUNT (BEAKER) (test 0.61 K/ L 1.32-3.57 ynvg=176) MONOCYTES ABSOLUTE COUNT (BEAKER) (test 0.90 K/ L 0.30-0.82 kbhh=768) EOSINOPHILS ABSOLUTE COUNT (BEAKER) (test 0.00 K/ L 0.04-0.54 xtdz=805) BASOPHILS ABSOLUTE COUNT (BEAKER) (test 0.03 K/ L 0.01-0.08 cqor=814) IMMATURE GRANULOCYTES-RELATIVE PERCENT (BEAKER) 0 % 0-1 (test fjpm=0478) POCT-GLUCOSE [id number] 00:31:00 Test Item Value Reference Range Comments POC-GLUCOSE METER (BEAKER) 111 mg/dL 70-110 TESTED AT [place] [id number] [facility] (test fmda=3045) [facility] [address] POCT-GLUCOSE [id number] 18:42:00 Test Item Value Reference Range Comments POC-GLUCOSE METER (BEAKER) 91 mg/dL 70-110 TESTED AT [place] [id number] [facility] (test yzsd=7723) [facility] [address] POCT-GLUCOSE [id number] 15:25:00 Test Item Value Reference Range Comments POC-GLUCOSE METER (BEAKER) 92 mg/dL 70-110 TESTED AT [address] (test wvua=8446) [facility] [address] CT BRAIN WITHOUT IV CONTRAST - [id number] 13:09:00Reason for exam:-> follow up EVD removalFINAL REPORT CT head without contrast INDICATION: Follow up EVD removal. TECHNIQUE: Contiguous axial images through the head without contrast on the portable CT unit. This exam was performed according to our departmental dose optimization program which includes automated exposure control, adjustment of the mA and/or kV according to patient size and/or use of iterative reconstruction technique. COMPARISON: CT head 02/01/2018, CTA 01/31/2018 FINDINGS:Residual left posterior cerebral parenchyma hemorrhage is stable [...] mass effect are stable. Signed: Shante Rojas MDReport Verified Date/Time: 02/03/2018 13:09:24 Reading Location: [facility] C013 Neuro Reading Room Electronically signed by: SHANTE ROJAS M.D. on 2017 01:09 PMHEPATITIS PANEL, [id number] 06:20:00 Test Item Value Reference Range Comments HEPATITIS A IGM ANTIBODY (BEAKER) (test Nonreactive Nonreactive fuxj=079) HEPATITIS B CORE IGM ANTIBODY (BEAKER) (test Nonreactive Nonreactive yves=520) HEPATITIS C ANTIBODY (BEAKER) (test cbeq=115) Reactive Nonreactive HEPATITIS B SURFACE ANTIGEN (2) (BEAKER) (test Nonreactive Nonreactive crsi=6750) [id number] 04:57:00 Test Item Value Reference Range Comments MAGNESIUM (BEAKER) (test rflo=331) 1.9 mg/dL 1.6-2.6 BASIC METABOLIC [id number] 04:57:00 Test Item Value Reference Range Comments SODIUM (BEAKER) (test 137 meq/L 136-145 xxac=050) POTASSIUM (BEAKER) (test 3.6 meq/L 3.5-5.1 qtmk=218) CHLORIDE (BEAKER) (test 111 meq/L 98-107 kltr=770) CO2 (BEAKER) (test 18 meq/L 22-29 zvpd=566) BLOOD UREA NITROGEN 13 mg/dL 7-21 (BEAKER) (test whlq=941) CREATININE (BEAKER) (test 0.82 mg/dL 0.57-1.25 nrcs=775) GLUCOSE RANDOM (BEAKER) 102 mg/dL 70-105 (test vqxz=529) CALCIUM (BEAKER) (test 8.6 mg/dL 8.4-10.2 dpci=992) EGFR (BEAKER) (test 94 mL/min/1.73 sq m ESTIMATED GFR IS NOT fnww=7519) ACCURATE CREATININE CLEARANCE IN PREDICTING GLOMERULAR FILTRATION RATE. ESTIMATED GFR IS NOT APPLICABLE FOR DIALYSIS PATIENTS. HEPATIC FUNCTION [id number] 04:57:00 Test Item Value Reference Range Comments TOTAL PROTEIN (BEAKER) (test wrei=725) 6.1 gm/dL 6.0-8.3 ALBUMIN (BEAKER) (test ccyy=8584) 3.6 g/dL 3.5-5.0 BILIRUBIN TOTAL (BEAKER) (test ufwl=412) 1.1 mg/dL 0.2-1.2 BILIRUBIN DIRECT (BEAKER) (test zjbe=427) 0.5 mg/dL 0.1-0.5 ALKALINE PHOSPHATASE (BEAKER) (test qvqq=914) 42 U/L 40-150 AST (SGOT) (BEAKER) (test ovts=807) 29 U/L 5-34 ALT (SGPT) (BEAKER) (test snub=473) 16 U/L 6-55 [id number] 04:56:00 Test Item Value Reference Range Comments PHOSPHORUS (BEAKER) (test vptw=418) 1.7 mg/dL 2.3-4.7 CBC W/PLT COUNT & AUTO [id number] 03:59:00 Test Item Value Reference Range Comments WHITE BLOOD CELL COUNT (BEAKER) (test ycua=690) 9.4 K/ L 3.5-10.5 RED BLOOD CELL COUNT (BEAKER) (test osqk=986) 4.29 M/ L 4.63-6.08 HEMOGLOBIN (BEAKER) (test bptn=729) 13.7 GM/DL 13.7-17.5 HEMATOCRIT (BEAKER) (test fyzv=376) 40.8 % 40.1-51.0 MEAN CORPUSCULAR VOLUME (BEAKER) (test wehw=409) 95.1 fL 79.0-92.2 MEAN CORPUSCULAR HEMOGLOBIN (BEAKER) (test 31.9 pg 25.7-32.2 huqo=837) MEAN CORPUSCULAR HEMOGLOBIN CONC (BEAKER) (test 33.6 GM/DL 32.3-36.5 zoig=647) RED CELL DISTRIBUTION WIDTH (BEAKER) (test 14.0 % 11.6-14.4 hbja=656) PLATELET COUNT (BEAKER) (test eoht=124) 208 K/CU MM 150-450 MEAN PLATELET VOLUME (BEAKER) (test hocu=336) 12.2 fL 9.4-12.4 NUCLEATED RED BLOOD CELLS (BEAKER) (test 0 /100 WBC 0-0 jfza=662) NEUTROPHILS RELATIVE PERCENT (BEAKER) (test 78 % lmfp=530) LYMPHOCYTES RELATIVE PERCENT (BEAKER) (test 9 % xxhv=511) MONOCYTES RELATIVE PERCENT (BEAKER) (test 12 % tpdz=472) EOSINOPHILS RELATIVE PERCENT (BEAKER) (test 0 % xuqc=578) BASOPHILS RELATIVE PERCENT (BEAKER) (test 0 % mdrz=898) NEUTROPHILS ABSOLUTE COUNT (BEAKER) (test 7.31 K/ L 1.78-5.38 rssj=985) LYMPHOCYTES ABSOLUTE COUNT (BEAKER) (test 0.85 K/ L 1.32-3.57 ludy=411) MONOCYTES ABSOLUTE COUNT (BEAKER) (test 1.14 K/ L 0.30-0.82 nuqo=370) EOSINOPHILS ABSOLUTE COUNT (BEAKER) (test 0.00 K/ L 0.04-0.54 rkhr=408) BASOPHILS ABSOLUTE COUNT (BEAKER) (test 0.02 K/ L 0.01-0.08 qnth=576) IMMATURE GRANULOCYTES-RELATIVE PERCENT (BEAKER) 0 % 0-1 (test vloz=2657) POCT-GLUCOSE [id number] 01:18:00 Test Item Value Reference Range Comments POC-GLUCOSE METER (BEAKER) 103 mg/dL 70-110 TESTED AT [address] (test ckul=5226) [place] [id number] POCT-GLUCOSE [id number] 19:16:00 Test Item Value Reference Range Comments POC-GLUCOSE METER (BEAKER) 114 mg/dL 70-110 TESTED AT [address] (test baqn=6377) [place] [address] POCT-GLUCOSE [id number] 13:29:00 Test Item Value Reference Range Comments POC-GLUCOSE METER (BEAKER) 107 mg/dL 70-110 TESTED AT [address] (test dnlm=1501) [place] [address] SPUTUM CULTURE + GRAM [id number] 10:09:00 Test Item Value Reference Range Comments CULTURE (BEAKER) (test 1+ Normal respiratory carla kzqn=2430) present GRAM STAIN RESULT (BEAKER) 1+ WBCs (test feiu=0620) GRAM STAIN RESULT (BEAKER) 2+ gram positive cocci in pairs (test hwtq=41722) GRAM STAIN RESULT (BEAKER) 2+ gram positive cocci in chains (test veou=54258) GRAM STAIN RESULT (BEAKER) 0-5 epithelial cells (test fudk=400109) CBC W/PLT COUNT & AUTO [id number] 06:44:00 Test Item Value Reference Range Comments WHITE BLOOD CELL COUNT (BEAKER) (test qhof=051) 10.0 K/ L 3.5-10.5 RED BLOOD CELL COUNT (BEAKER) (test nozx=102) 4.09 M/ L 4.63-6.08 HEMOGLOBIN (BEAKER) (test ulgg=255) 13.1 GM/DL 13.7-17.5 HEMATOCRIT (BEAKER) (test zxle=374) 39.5 % 40.1-51.0 MEAN CORPUSCULAR VOLUME (BEAKER) (test rltg=795) 96.6 fL 79.0-92.2 MEAN CORPUSCULAR HEMOGLOBIN (BEAKER) (test 32.0 pg 25.7-32.2 udng=769) MEAN CORPUSCULAR HEMOGLOBIN CONC (BEAKER) (test 33.2 GM/DL 32.3-36.5 wofy=977) RED CELL DISTRIBUTION WIDTH (BEAKER) (test 14.0 % 11.6-14.4 iwfk=028) PLATELET COUNT (BEAKER) (test mflr=879) 166 K/CU MM 150-450 MEAN PLATELET VOLUME (BEAKER) (test oudu=214) 10.7 fL 9.4-12.4 NUCLEATED RED BLOOD CELLS (BEAKER) (test 0 /100 WBC 0-0 chse=892) NEUTROPHILS RELATIVE PERCENT (BEAKER) (test 85 % afay=018) LYMPHOCYTES RELATIVE PERCENT (BEAKER) (test 5 % nzkj=241) MONOCYTES RELATIVE PERCENT (BEAKER) (test 10 % ujlr=507) EOSINOPHILS RELATIVE PERCENT (BEAKER) (test 0 % tjtv=060) BASOPHILS RELATIVE PERCENT (BEAKER) (test 0 % pwvj=873) NEUTROPHILS ABSOLUTE COUNT (BEAKER) (test 8.48 K/ L 1.78-5.38 gswo=527) LYMPHOCYTES ABSOLUTE COUNT (BEAKER) (test 0.52 K/ L 1.32-3.57 drlf=221) MONOCYTES ABSOLUTE COUNT (BEAKER) (test 0.97 K/ L 0.30-0.82 dkcv=056) EOSINOPHILS ABSOLUTE COUNT (BEAKER) (test 0.00 K/ L 0.04-0.54 wiwo=521) BASOPHILS ABSOLUTE COUNT (BEAKER) (test 0.02 K/ L 0.01-0.08 srlc=190) IMMATURE GRANULOCYTES-RELATIVE PERCENT (BEAKER) 0 % 0-1 (test clde=6142) POCT-GLUCOSE [id number] 06:25:00 Test Item Value Reference Range Comments POC-GLUCOSE METER (BEAKER) 115 mg/dL 70-[address] [facility] [address] (test lufs=5102) [facility] [address] BLOOD GAS, [id number] 06:22:00 Test Item Value Reference Range Comments PH ARTERIAL (BEAKER) (test noki=299) 7.49 7.35-7.45 PCO2 ARTERIAL (BEAKER) (test yhmt=851) 25 mmHg 35-45 PO2 ARTERIAL (BEAKER) (test kbrw=074) 68 mmHg 80-90 O2 SATURATION ARTERIAL (BEAKER) (test vpci=532) 94.9 % 96.0-97.0 HCO3 ARTERIAL (BEAKER) (test pnpj=171) 18 mmol/L 21-29 BASE EXCESS ARTERIAL (BEAKER) (test zcep=665) -3.3 mmol/L -2.0-3.0 PATIENT TEMPERATURE (BEAKER) (test nqmr=2680) 37.3 C FIO2 (BEAKER) (test kcbl=2687) 21.0 % [id number] 05:44:00 Test Item Value Reference Range Comments PHOSPHORUS (BEAKER) (test qsjc=734) 1.7 mg/dL 2.3-4.7 [id number] 05:44:00 Test Item Value Reference Range Comments MAGNESIUM (BEAKER) (test kgtp=103) 1.9 mg/dL 1.6-2.6 BASIC METABOLIC [id number] 05:44:00 Test Item Value Reference Range Comments SODIUM (BEAKER) (test 138 meq/L 136-145 cvuj=507) POTASSIUM (BEAKER) (test 3.6 meq/L 3.5-5.1 wwpo=353) CHLORIDE (BEAKER) (test 107 meq/L 98-107 fgij=283) CO2 (BEAKER) (test 22 meq/L 22-29 tdup=169) BLOOD UREA NITROGEN 9 mg/dL 7-21 (BEAKER) (test urva=789) CREATININE (BEAKER) (test 0.89 mg/dL 0.57-1.25 bpyp=672) GLUCOSE RANDOM (BEAKER) 106 mg/dL 70-105 (test wygy=653) CALCIUM (BEAKER) (test 8.9 mg/dL 8.4-10.2 tngz=977) EGFR (BEAKER) (test 85 mL/min/1.73 sq m ESTIMATED GFR IS NOT gcxe=7867) ACCURATE CREATININE CLEARANCE IN PREDICTING GLOMERULAR FILTRATION RATE. ESTIMATED GFR IS NOT APPLICABLE FOR DIALYSIS PATIENTS. POCT-GLUCOSE [id number] 00:49:00 Test Item Value Reference Range Comments POC-GLUCOSE METER (BEAKER) 124 mg/dL 70-110 TESTED AT [address] (test nwue=2303) [place] [id number] POCT-GLUCOSE [id number] 18:34:00 Test Item Value Reference Range Comments POC-GLUCOSE METER (BEAKER) 144 mg/dL 70-110 TESTED AT [address] (test hdax=4997) [place] [id number] POCT-GLUCOSE [id number] 12:39:00 Test Item Value Reference Range Comments POC-GLUCOSE METER (BEAKER) 124 mg/dL 70-110 TESTED AT [address] (test ijve=6737) [facility] [address] BLOOD GAS, [id number] 11:19:00 Test Item Value Reference Range Comments PH ARTERIAL (BEAKER) (test fxxw=696) 7.45 7.35-7.45 PCO2 ARTERIAL (BEAKER) (test qkyx=786) 32 mmHg 35-45 PO2 ARTERIAL (BEAKER) (test sxwu=983) 98 mmHg 80-90 O2 SATURATION ARTERIAL (BEAKER) (test pmgn=429) 97.6 % 96.0-97.0 HCO3 ARTERIAL (BEAKER) (test elfb=712) 21 mmol/L 21-29 BASE EXCESS ARTERIAL (BEAKER) (test ddpu=571) -1.5 mmol/L -2.0-3.0 PATIENT TEMPERATURE (BEAKER) (test yhps=5669) 37.5 C FIO2 (BEAKER) (test dkdl=0992) 32.0 % CT BRAIN WITHOUT IV CONTRAST - [id number] 09:26:00Reason for exam:-> ICH with IVHFINAL REPORT CT head without contrast 2017 9:25 AM CLINICAL HISTORY: ICHwith IVH TECHNIQUE: Contiguous axial images through the head without contrast were obtained utilizing the portable CT unit. This examination was performed according to our departmental dose optimization program, which includes automated exposure control, adjustment of the mA and/or kV according to patient size, and/or use of iterated reconstruction technique. COMPARISON: 01/31/2018 FINDINGS: There is pin subtotal evacuation of a large volume left posterior hemispheric intraparenchymal hematoma. Thereis stable small volume subarachnoid hemorrhage. There is trace intraventricular hemorrhage , decreased when compared to the prior examination. Hyperdensity along the left falx cerebri may reflect trace subdural hemorrhage. There is been resolution of hydrocephalus status post drainage catheter placement. There is small volume pneumocephalus without concerning mass effect. The paranasal sinuses and tympanomastoid cavities are well aerated. There is no craniotomy offset or concerning subgaleal collection. IMPRESSION: Improved intracranial appearance. Signed: Salas Velezort Verified Date/Time: 02/01/2018 09:26:57 Reading Location: [address] Neuro Reading Room HEMOGLOBIN [id number] 08:20:00 Test Item Value Reference Range Comments HEMOGLOBIN A1C (ROMA) (test oqod=262) 6.1 % 4.3-6.1 RAD, CHEST, 1 VIEW, NON [id number] 07:38:00Reason for exam:-> intubationShould this be performed at the bedside?->YesFINAL REPORT Chest one view AP 02/01/2018 7:37 AM CLINICAL INDICATION: intubation COMPARISON: 01/31/2018 IMPRESSION: The endotracheal tube tip projects over the oscar and is oriented toward the right mainstem bronchus. Advise retraction, 2 to 3 cm. An enteric tube is in satisfactory radiographic position. The lungs are hypoinflated. Bibasilar opacities suggest atelectasis. Pneumonia should be excluded clinically. Cardiomediastinal contours are within normal limits. There is central pulmonary vasculature congestion without remarkable peripheral edema. Signed: Salas Velez Verified Date/Time : 02/01/2018 07:38:36 Reading Location: [address] Neuro Reading Room POCT- GLUCOSE [id number] 06:57:00 Test Item Value Reference Range Comments POC-GLUCOSE METER (BEAKER) 123 mg/dL 70-[address] [facility] [address] (test lqjm=8023) [place] [address] BLOOD GAS, [id number] 04:33:00 Test Item Value Reference Range Comments PH ARTERIAL (BEAKER) (test syjm=970) 7.39 7.35-7.45 PCO2 ARTERIAL (BEAKER) (test wodo=205) 39 mmHg 35-45 PO2 ARTERIAL (BEAKER) (test rbol=783) 262 mmHg 80-90 O2 SATURATION ARTERIAL (BEAKER) (test zage=545) 99.6 % 96.0-97.0 HCO3 ARTERIAL (BEAKER) (test senc=732) 23 mmol/L 21-29 BASE EXCESS ARTERIAL (BEAKER) (test hpza=721) -1.4 mmol/L -2.0-3.0 PATIENT TEMPERATURE (BEAKER) (test spgi=1811) 37.1 C FIO2 (BEAKER) (test ufvl=0870) 60.0 % [id number] 04:18:00 Test Item Value Reference Range Comments PHOSPHORUS (BEAKER) (test pzaf=580) 3.4 mg/dL 2.3-4.7 [id number] 04:18:00 Test Item Value Reference Range Comments MAGNESIUM (BEAKER) (test byhe=193) 1.2 mg/dL 1.6-2.6 BASIC METABOLIC [id number] 04:18:00 Test Item Value Reference Range Comments SODIUM (BEAKER) (test 138 meq/L 136-145 jvuh=838) POTASSIUM (BEAKER) (test 4.1 meq/L 3.5-5.1 medl=311) CHLORIDE (BEAKER) (test 109 meq/L 98-107 cvax=168) CO2 (BEAKER) (test 22 meq/L 22-29 wuvc=535) BLOOD UREA NITROGEN 10 mg/dL 7-21 (BEAKER) (test pkpq=562) CREATININE (BEAKER) (test 0.81 mg/dL 0.57-1.25 jcni=566) GLUCOSE RANDOM (BEAKER) 124 mg/dL 70-105 (test jdea=082) CALCIUM (BEAKER) (test 8.4 mg/dL 8.4-10.2 qhvo=525) EGFR (BEAKER) (test 95 mL/min/1.73 sq m ESTIMATED GFR IS NOT qibp=9884) ACCURATE CREATININE CLEARANCE IN PREDICTING GLOMERULAR FILTRATION RATE. ESTIMATED GFR IS NOT APPLICABLE FOR DIALYSIS PATIENTS. CBC W/PLT COUNT & AUTO [id number] 04:06:00 Test Item Value Reference Range Comments WHITE BLOOD CELL COUNT (BEAKER) (test votq=926) 7.6 K/ L 3.5-10.5 RED BLOOD CELL COUNT (BEAKER) (test cuna=273) 4.05 M/ L 4.63-6.08 HEMOGLOBIN (BEAKER) (test elbx=799) 13.0 GM/DL 13.7-17.5 HEMATOCRIT (BEAKER) (test eyqh=430) 38.6 % 40.1-51.0 MEAN CORPUSCULAR VOLUME (BEAKER) (test yykv=214) 95.3 fL 79.0-92.2 MEAN CORPUSCULAR HEMOGLOBIN (BEAKER) (test 32.1 pg 25.7-32.2 djjk=996) MEAN CORPUSCULAR HEMOGLOBIN CONC (BEAKER) (test 33.7 GM/DL 32.3-36.5 djaf=371) RED CELL DISTRIBUTION WIDTH (BEAKER) (test 13.6 % 11.6-14.4 jxit=089) PLATELET COUNT (BEAKER) (test eupe=183) 186 K/CU MM 150-450 MEAN PLATELET VOLUME (BEAKER) (test qavx=038) 10.2 fL 9.4-12.4 NUCLEATED RED BLOOD CELLS (BEAKER) (test 0 /100 WBC 0-0 nldk=530) NEUTROPHILS RELATIVE PERCENT (BEAKER) (test 80 % ujss=639) LYMPHOCYTES RELATIVE PERCENT (BEAKER) (test 10 % rrss=056) MONOCYTES RELATIVE PERCENT (BEAKER) (test 10 % atmp=368) EOSINOPHILS RELATIVE PERCENT (BEAKER) (test 0 % fjpw=787) BASOPHILS RELATIVE PERCENT (BEAKER) (test 0 % sgbe=845) NEUTROPHILS ABSOLUTE COUNT (BEAKER) (test 6.04 K/ L 1.78-5.38 xitn=483) LYMPHOCYTES ABSOLUTE COUNT (BEAKER) (test 0.72 K/ L 1.32-3.57 yyux=838) MONOCYTES ABSOLUTE COUNT (BEAKER) (test 0.76 K/ L 0.30-0.82 xopa=404) EOSINOPHILS ABSOLUTE COUNT (BEAKER) (test 0.00 K/ L 0.04-0.54 lgtr=438) BASOPHILS ABSOLUTE COUNT (BEAKER) (test 0.02 K/ L 0.01-0.08 wzpk=478) IMMATURE GRANULOCYTES-RELATIVE PERCENT (BEAKER) 0 % 0-1 (test qfod=5062) [id number] 02:07:00 Test Item Value Reference Range Comments RPR SCREEN (BEAKER) (test bhyu=003) Nonreactive Nonreactive HEPATIC FUNCTION [id number] 22:17:00 Test Item Value Reference Range Comments TOTAL PROTEIN (BEAKER) (test vuzw=191) 6.4 gm/dL 6.0-8.3 ALBUMIN (BEAKER) (test qvyr=7198) 4.2 g/dL 3.5-5.0 BILIRUBIN TOTAL (BEAKER) (test gxwg=679) 0.8 mg/dL 0.2-1.2 BILIRUBIN DIRECT (BEAKER) (test ojuf=654) 0.4 mg/dL 0.1-0.5 ALKALINE PHOSPHATASE (BEAKER) (test sxsw=271) 52 U/L 40-150 AST (SGOT) (BEAKER) (test qsuo=138) 27 U/L 5-34 ALT (SGPT) (BEAKER) (test hbok=425) 19 U/L 6-55 CT, CTANGIO [id number] 21:00:00FINAL REPORT CTA carotids and brain 01/31/2018 8:54 [...] and/or kV according to patient size, and/or useof iterated reconstruction technique. FINDINGS: There is a [...] greater than right proximal cervical internal carotid arteries,resulting in 10% right and 33% left cervical [...] support catheters are in satisfactory radiographic position. IMPRESSION:1. Large volume left posterior hemispheric intraparenchymal hematoma with associated small volume intraventricular and subarachnoid hemorrhage and resultant mild obstructive hydrocephalus.2. No evident aneurysm or arteriovenous malformation.3. Mild intracranialAtherosclerotic vascular disease.4. Spondylosis. Signed: Salas Velez Verified Date/Time: 01/31/2018 21:00:54 Reading Location: [facility] Radiology Reading Room CT, CAROTID, [id number] 21:00:00FINAL REPORT CTA carotids and brain 01/31/2018 8:54 [...] and/or kV according to patient size, and/or useof iterated reconstruction technique. FINDINGS: There is a [...] greater than right proximal cervical internal carotid arteries,resulting in 10% right and 33% left cervical [...] support catheters are in satisfactory radiographic position. IMPRESSION:1. Large volume left posterior hemispheric intraparenchymal hematoma with associated small volume intraventricular and subarachnoid hemorrhage and resultant mild obstructive hydrocephalus.2. No evident aneurysm or arteriovenous malformation.3. Mild intracranialAtherosclerotic vascular disease.4. Spondylosis. Signed: Salas Velez MDReport Verified Date/Time: 01/31/2018 21:00:54 Reading Location: [facility] Radiology Reading Room TSH/FREE T4 IF [id number] 20:05:00 Test Item Value Reference Range Comments THYROID STIMULATING HORMONE (BEAKER) (test 2.07 uIU/mL 0.35-4.94 ydlk=898) VITAMIN B12 AND [id number] 20:05:00 Test Item Value Reference Range Comments VITAMIN B12 (BEAKER) (test bqey=693) 340 pg/mL 213-816 FOLATE (BEAKER) (test kcdn=817) 11.0 ng/mL >=7.0 PROTHROMBIN [id number] 19:56:00 Test Item Value Reference Range Comments PROTIME (BEAKER) (test ambw=905) 14.1 seconds 11.7-14.7 INR (BEAKER) (test hvbv=352) 1.1 <=5.9 RECOMMENDED COUMADIN/WARFARIN INR THERAPY RANGESSTANDARD DOSE: 2.0 - 3.0 Includes: PROPHYLAXIS forvenous thrombosis, systemic embolization; TREATMENT for venous thrombosis and/or pulmonary embolus.HIGH RISK: Target INR is 2.5-3.5 for patients with mechanical heart valves.[id number] 19:56:00 Test Item Value Reference Range Comments PARTIAL THROMBOPLASTIN TIME (BEAKER) (test 31.5 seconds 22.5-36.0 bygs=859) CBC W/PLT COUNT & AUTO [id number] 19:45:00 Test Item Value Reference Range Comments WHITE BLOOD CELL COUNT (BEAKER) (test tzac=152) 10.6 K/ L 3.5-10.5 RED BLOOD CELL COUNT (BEAKER) (test wjgo=797) 5.29 M/ L 4.63-6.08 HEMOGLOBIN (BEAKER) (test kydu=851) 17.1 GM/DL 13.7-17.5 HEMATOCRIT (BEAKER) (test jong=342) 50.0 % 40.1-51.0 MEAN CORPUSCULAR VOLUME (BEAKER) (test caul=228) 94.5 fL 79.0-92.2 MEAN CORPUSCULAR HEMOGLOBIN (BEAKER) (test 32.3 pg 25.7-32.2 bmjn=733) MEAN CORPUSCULAR HEMOGLOBIN CONC (BEAKER) (test 34.2 GM/DL 32.3-36.5 ydnl=945) RED CELL DISTRIBUTION WIDTH (BEAKER) (test 13.3 % 11.6-14.4 tvvt=197) PLATELET COUNT (BEAKER) (test ywhh=565) 83 K/CU MM 150-450 MEAN PLATELET VOLUME (BEAKER) (test kfrm=438) 11.9 fL 9.4-12.4 NUCLEATED RED BLOOD CELLS (BEAKER) (test 0 /100 WBC 0-0 ngtm=891) NEUTROPHILS RELATIVE PERCENT (BEAKER) (test 79 % xbzg=488) LYMPHOCYTES RELATIVE PERCENT (BEAKER) (test 13 % mhof=061) MONOCYTES RELATIVE PERCENT (BEAKER) (test 8 % fwts=235) EOSINOPHILS RELATIVE PERCENT (BEAKER) (test 0 % bhpu=007) BASOPHILS RELATIVE PERCENT (BEAKER) (test 0 % cine=633) NEUTROPHILS ABSOLUTE COUNT (BEAKER) (test 8.32 K/ L 1.78-5.38 liju=907) LYMPHOCYTES ABSOLUTE COUNT (BEAKER) (test 1.38 K/ L 1.32-3.57 lppv=178) MONOCYTES ABSOLUTE COUNT (BEAKER) (test mfsd=142) 0.83 K/ L 0.30-0.82 EOSINOPHILS ABSOLUTE COUNT (BEAKER) (test 0.00 K/ L 0.04-0.54 yhlx=451) BASOPHILS ABSOLUTE COUNT (BEAKER) (test hbyg=567) 0.04 K/ L 0.01-0.08 IMMATURE GRANULOCYTES-RELATIVE PERCENT (BEAKER) 0 % 0-1 (test hhrh=6370) COMPREHENSIVE METABOLIC [id number] 19:30:00 Test Item Value Reference Range Comments TOTAL PROTEIN (BEAKER) 6.6 gm/dL 6.0-8.3 Specimen slightly (test jrxi=324) hemolyzed ALBUMIN (BEAKER) (test 4.3 g/dL 3.5-5.0 Specimen slightly lchi=5294) hemolyzed ALKALINE PHOSPHATASE 58 U/L 40-150 (BEAKER) (test wxgh=095) BILIRUBIN TOTAL (BEAKER) 1.1 mg/dL 0.2-1.2 Specimen slightly (test pufk=516) hemolyzed SODIUM (BEAKER) (test 138 meq/L 136-145 lxvg=858) POTASSIUM (BEAKER) (test 3.3 meq/L 3.5-5.1 Specimen slightly uhwm=587) hemolyzed CHLORIDE (BEAKER) (test 106 meq/L 98-107 yxrv=366) CO2 (BEAKER) (test 18 meq/L 22-29 tqsc=711) BLOOD UREA NITROGEN 12 mg/dL 7-21 (BEAKER) (test imfs=693) CREATININE (BEAKER) (test 0.85 mg/dL 0.57-1.25 Specimen slightly drtt=483) hemolyzed GLUCOSE RANDOM (BEAKER) 131 mg/dL 70-105 (test ioet=413) CALCIUM (BEAKER) (test 9.1 mg/dL 8.4-10.2 gvxr=228) AST (SGOT) (BEAKER) (test 35 U/L 5-34 Specimen slightly nebh=689) hemolyzed ALT (SGPT) (BEAKER) (test 21 U/L 6-55 Specimen slightly tajb=990) hemolyzed EGFR (BEAKER) (test 90 mL/min/1.73 sq m ESTIMATED GFR IS NOT imei=3747) ACCURATE CREATININE CLEARANCE IN PREDICTING GLOMERULAR FILTRATION RATE. ESTIMATED GFR IS NOT APPLICABLE FOR DIALYSIS PATIENTS. [id number] 19:30:00 Test Item Value Reference Range Comments MAGNESIUM (BEAKER) (test 1.6 mg/dL 1.6-2.6 Specimen slightly hemolyzed pvdw=036) LIPID [id number] 19:30:00 Test Item Value Reference Range Comments TRIGLYCERIDES (BEAKER) (test 85 mg/dL Specimen slightly hemolyzed kuhc=496) CHOLESTEROL (BEAKER) (test 174 mg/dL Specimen slightly hemolyzed ptdb=630) HDL CHOLESTEROL (BEAKER) (test 56 mg/dL fuqg=972) LDL CHOLESTEROL CALCULATED 101 mg/dL (BEAKER) (test yptk=927) Triglyceride Reference Range: Low Risk <150 Borderline 150- 199 High Risk 200-499 Very High Risk >=500Cholesterol Reference Range: Low Risk <200 Borderline 200-239 High Risk > 240HDL Cholesterol Reference Range: Low Risk >=60 High Risk <40LDL Cholesterol Reference Range: Optimal <100 Near Optimal 100-129 Borderline 130-159 High 160-189 Very High >=190BLOOD GAS, [id number] 19:28:00 Test Item Value Reference Range Comments PH ARTERIAL (BEAKER) (test qwxj=318) 7.42 7.35-7.45 PCO2 ARTERIAL (BEAKER) (test bote=215) 33 mmHg 35-45 PO2 ARTERIAL (BEAKER) (test suuv=891) 183 mmHg 80-90 O2 SATURATION ARTERIAL (BEAKER) (test wvdz=241) 99.3 % 96.0-97.0 HCO3 ARTERIAL (BEAKER) (test gyej=889) 21 mmol/L 21-29 BASE EXCESS ARTERIAL (BEAKER) (test fnyw=078) -2.4 mmol/L -2.0-3.0 PATIENT TEMPERATURE (BEAKER) (test crzu=9849) 37.0 C RAD, CHEST, 1 VIEW, NON [id number] 17:49:00Post-intubationReason for exam:-& gt;post intubationShould this be performed at the bedside?->YesFINAL REPORT Chest, 1 view. History: Post intubation. Comparison: None available. Impression: Endotracheal tube to terminate approximately 3.4 cm above the oscar. Partially visualized enteric tube courses below the diaphragm. Surgical clips noted within the right axilla. The trachea is midline. There is no evidence for large focal consolidation, pneumothorax, or significant pleural effusion. The cardiomediastinal silhouette is within normal limits. No acute osseous abnormality is identified. Signed: Riley Xavierort Verified Date/Time: 01/31/2018 17:49:49 Reading Location: [facility] B1 [id number] Consult Reading Room
--- NOTE | 2018-02-28 18:53 | RAD REPORT ---
EXAM DESCRIPTION: CT - Head Brain Wo Cont - 02/28/2018 6:37 pm CLINICAL HISTORY: Altered consciousness. COMPARISON: 01/31/2018 TECHNIQUE: All CT scans are performed using dose optimization technique as appropriate and may inclu de automated exposure control or mA/KV adjustment according to patient size. FINDINGS: Postsurgical changes are present involving the left posterior parietal lobe, related to th e previously noted large intercerebral hematoma. A small amount of linear hyperdensity in the region (image 17/32) likely represents a small amount of residual blood product.Edema is present in the whit e matter of the posterior left parietal and temporal region. No midline shift. No hydrocephalus. The paranasal sinuses and mastoids are clear. Left parietal craniotomy changes noted. IMPRESSION: Postsurgical changes are noted in the left posterior parietal region related to the prev iously noted large hematoma. A small sliver of hyperdense material in the region likely represents mi nimal residual blood product. No midline shift is seen.
--- NOTE | 2018-02-28 19:05 | RAD REPORT ---
EXAM DESCRIPTION: RAD - Chest Single View - 02/28/2018 6:49 pm CLINICAL HISTORY: Chest pain. COMPARISON: 01/31/2018 FINDINGS: Portable technique limits examination quality. The lungs are grossly clear. The heart is normal in size. No displaced fractures. IMPRESSION: No acute intrathoracic process suspected.
[2018-02-28 19:08] LABS: Absolute Lymphocytes (CBC) 1.9 K/uL (0.7-4.9); Absolute Monocytes 0.7 K/uL (0.1-1.3); Absolute Neutrophil 4.6 K/uL (1.8-8.0); Basophils % 0.5 % (0-1.3); Eosinophils % 1.4 % (0-4.4); Hematocrit 39.7 % (39.6-49.0); Lymphocytes % 25.8 % (15.3-44.8); MCH 30.9 pg (27.0-35.0); MCV 92.6 fL (80-100); MPV 8.9 fL (7.6-11.3); Monocytes % 9.9 % (3.3-12.3); RBC Red Blood Cell Count 4.28 M/uL (4.33-5.43)
[2018-02-28 19:09] LABS: Protime INR 1.07
[2018-02-28 19:18] LABS: Potassium 4.3 mEq/L (3.6-5.0)
[2018-02-28 19:24] LABS: Albumin 3.6 g/dL (3.2-5.5); Bilirubin Direct 0.1 mg/dL (0-0.2); Bilirubin Total 0.5 mg/dL (0.3-1.2); Magnesium 1.5 mg/dL (1.8-2.5); Protein, Total 6.6 g/dL (6.0-8.3)
[2018-02-28] MEDS ORDERED: Magnesium Sulfate 2gm IVPB 2 G/50 ML BAG IV ONE (19:47)
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
== END 2018-02-28 20:44 | disposition home or self-care (01) ==
LOC: ER 18:03
DX: R41.82 Altered mental status, unspecified (principal); I10 Essential (primary) hypertension; Z86.73 Personal history of transient ischemic attack (TIA), and cerebral infarction without residual deficits
CPT/HCPCS: 36415; 70450; 71045; 80048; 80076; 82550; 83690; 83735; 83880; 84484; 85025; 85610; 96365; 99284; J3475

== ENCOUNTER 2018-03-04 15:24 | Observation (INO) | payer OTHER ==
--- OUTSIDE RECORDS SUMMARY | 2018-03-04 15:26 | XMS REPORT | Clinical Summary ---
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 02/06/2018 Anesthesia Event Gastroenterology Tang Ortiz CRNA 02/06/2018 Procedure Pass Gastroenterology 02/02/2018 Orders Only General Internal Medicine 01/31/2018 Hospital Intensive Care Yosvany Andersen Nontraumatic - Encounter MD Carlos cortical hemorrhage 02/14/2018 Giuseppe Forte of left cerebral MD Darrel hemisphere Baljeet Rueda ([facility]);Acute Trent, encephalopathy;Margoth Emmanuel MD red consciousness [facility], Rebecca Coley MD 01/31/2018 Anesthesia Event Mary Kate Hallman, JONATHAN 01/31/2018 Procedure Pass 01/31/2018 Surgery Dion Gruber MD CRANIOTOMY after 03/03/2017 Social History Tobacco Use Types Packs/Day Years [...] Not on file Implants 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 Type 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 Device Expiration Model / Identifier Date Serial / Lot Scr Un3 [place] Self Drl 1.5x4mm [id number] - [id number] Fracture/ Left: RADHIKA: CRANIOMA [id number] / Implanted: Qty: 6 on 01/31/2018 by Dion Gruber MD Fixation Head XILLOFACIAL / Plt Rigid 2h [id number] - [id number] Fracture/ Left: RADHIKA:CRANIOMA 53- [id number] / Implanted: Qty: 3 on 02/01/2018 by Dion Gruber MD Fixation Head XILLOFACIAL / Cath Bactiseal Evd [id number] - [id number] Neuro Left: J &J:CODMAN 2017 [id number] / Implanted: Qty: 1 on 02/01/2018 by Dion Gruber MD Head & SHURTLE / [id number] Procedures Procedure Name Priority Date/Time Associated Diagnosis Comments CRANIOTOMY 01/31/2018 8:00 PM CDT LEFT-SIDED INTRACRANAL SUBDURAL HEMATOMA after 03/03/2017 Results RHYTHM STRIP - SCAN (02/17/2018 2:00 PM)ECG 12 lead (02/14/2018 7:09 AM)Only the most recent of8 resultswithin the time period is included. Specimen Performing Laboratory [employer] Narrative Ventricular Rate 61 BPM Atrial Rate 61 BPM P-R Interval 156 ms QRS Duration 88 ms Q-T Interval 446 ms QTC Calculation(Bazett) 448 ms P [place] 46 degrees R [place] -4 degrees T [place] 7 degrees Normal sinus rhythm Moderate voltage [...] 446 ms QTC Calculation(Bazett) 448 ms P [place] 46 degrees R [place] -4 degrees T [place] 7 degrees Normal sinus rhythm Moderate voltage criteria for LVH, may be normal variant Borderline ECG When compared with ECG of 13-FEB-2018 07:24, No significant change was found Confirmed by MD MARTINEZ MAJID ([id number]) on 02/14/2018 2:23:33 PM POC-Glucose meter (02/14/2018 5:18 AM)Only the most recent of42 resultswithin the time period is included. Component Value Ref Range POC-Glucose Meter 105Comment: TESTED AT [address] [place] 70 - 110 mg/dL [address] Specimen Performing Laboratory Blood [address] [address] CBC with platelet count + automated diff [...] - 1 % Specimen Performing Laboratory Blood [address] [address] CBC with platelet count + automated diff (02/14/2018 5:14 AM)Only the most recent of15 resultswithin the time period is included. Specimen Performing Laboratory Blood Narrative The following orders were created for panel order CBC with platelet count + automated diff. Procedure Abnormality Status --------- ------ CBC with platelet count ...[[id number]]AbnormalFinal result Please view results for these tests on the individual orders. Magnesium (02/14/2018 5:14 AM)Only the most recent of15 resultswithin the time period is included. Component Value Ref Range Magnesium 2.0 1.6 - 2.6 mg/dL Specimen Performing Laboratory Blood [address] [address] Basic Metabolic Panel (02/14/2018 5:14 AM)Only the [...] FOR DIALYSIS PATIENTS. Specimen Performing Laboratory Blood [address] [address] [place] esoph swallow funct with cine video [...] MD Report Verified Date/Time:02/11/2018 13:56:12 Reading Location: [facility] C013X Ortho Consult Reading Room Procedure [...] Report Verified Date/Time: 02/11/2018 13:56:12 Reading Location: [facility] C013X Ortho Consult Reading Room Vancomycin level, trough (02/10/2018 1:36 AM)Only the most recent of2 resultswithin the time period is included. Component Value Ref Range Vancomycin Tr 7.7 (L) 10.0 - 20.0 ug/mL Specimen Performing Laboratory Blood - Arm, [address] [address] Manual Differential (02/08/2018 5:10 AM)Only the most [...] Present Specimen Performing Laboratory Blood - Arm, [address] [address] aPTT (02/07/2018 5:10 AM)Only the most recent of2 resultswithin the time period is included. Component Value Ref Range PTT 32.3 22.5 - 36.0 seconds Specimen Performing Laboratory Blood [address] [address] Prothrombin time/INR (02/07/2018 5:10 AM)Only the most recent of3 resultswithin the time period is included. Component Value Ref Range Protime 17.4 (H) 11.7 - 14.7 seconds INR 1.4 <=5.9 Specimen Performing Laboratory Blood [address] [address] Narrative RECOMMENDED COUMADIN/WARFARIN INR THERAPY RANGES STANDARD DOSE: 2.0 - 3.0 Includes: PROPHYLAXIS for venous thrombosis, systemic embolization; TREATMENT for venous thrombosis and/or pulmonary embolus. HIGH RISK: Target INR is 2.5-3.5 for patients with mechanical heart valves. Urinalysis w/Microscopic (02/06/2018 11:48 PM) Component Value Ref Range Color, UA Yellow Clarity, UA Hazy Specific Raymond, UA 1.030 1.001 - 1.035 pH, UA [...] Rare Specimen Source Specimen Performing Laboratory Urine [address] [address] Urine culture (02/06/2018 11:48 PM) Component Value Ref Range Result >100,000 col/mL Citrobacter werbinanni (A) Specimen Performing Laboratory Urine - Urine, Katz [address] [address] Organism Antibiotic Method Susceptibility Citrobacter holdeni Amikacin [...] Specimen Performing Laboratory Blood - Arm, Left [facility] [address] [place] [address] XR chest 1 view portable / bedside [...] MD Report Verified Date/Time:02/06/2018 21:27:48 Reading Location: [address] Body Reading Room Procedure Note [...] Report Verified Date/Time: 02/06/2018 21:27:48 Reading Location: [facility] B1 C013Y CT Body Reading Room abdomen / KUB 1 view (02/06/2018 4:33 PM)Only the most recent of2 resultswithin the time period is included. Specimen Performing Laboratory GE RIS Narrative FINAL REPORT AP abdomen HISTORY: Feeding tube COMPARISON: 02/04/2018 IMPRESSION: Feeding tube advanced, remaining along the greater curvature the stomach, not transpyloric. Signed: Christiano Granados MD Report Verified Date/Time:02/06/2018 17:35:54 Reading Location: [facility] Reading Room Procedure Note Interface, External Ris In - 02/06/2018 5:38 PM CDT FINAL REPORT AP abdomen HISTORY: Feeding tube COMPARISON: 02/04/2018 IMPRESSION: Feeding tube advanced, remaining along the greater curvature the stomach, not transpyloric. Signed: Christiano Granados MD Report Verified Date/Time: 02/06/2018 17:35:54 Reading Location: [facility] Reading Room Phosphorus (02/06/2018 5:34 AM)Only the most recent of7 resultswithin the time period is included. Component Value Ref Range Phosphorus 3.2 2.3 - 4.7 mg/dL Specimen Performing Laboratory Blood - Arm, [place] [address] Sputum Culture + Gram Stain (02/05/2018 8:45 [...] clusters Specimen Performing Laboratory Sputum - Suctioned [address] [address] Narrative 3+ Normal respiratory carla present Organism [...] - 5.1 meq/L Specimen Performing Laboratory Blood [address] [address] Narrative Check Serum Phosphorus level 4 hours after IV phosphorus replacement or 8 hours after PO replacement completed. 8 hours after PO replacement completed Prepare RBC (02/04/2018 7:09 AM) Component Value Ref Range Unit ABO O Neg UNIT NUMBER [id number] Status WORK IN PROGRESS Blood Bank Product RED BLOOD CELLS PRODUCT CODE I8519F84 Unit ABO O Neg UNIT NUMBER [id number] Status WORK IN PROGRESS Blood Bank Product RED BLOOD CELLS PRODUCT CODE [id number] CROSSMATCH COMPATIBLE CROSSMATCH COMPATIBLE Specimen Performing Laboratory SAFETRACE TX CT brain without IV contrast portable (02/03/2018 12:16 PM)Only the most recent of2 resultswithin the time period is included. Specimen Performing Laboratory [employer] Narrative FINAL REPORT CT head without contrast [...] MD Report Verified Date/Time:02/03/2018 13:09:24 Reading Location: [address] Neuro Reading Room Procedure Note Interface, [...] Report Verified Date/Time: 02/03/2018 13:09:24 Reading Location: [facility] C013V Neuro Reading Room Hepatitis panel, acute (02/03/2018 4:10 AM) Component Value Ref Range Hep A IgM Nonreactive Nonreactive Hep B C IgM Nonreactive Nonreactive Hepatitis C Ab Reactive (A) Nonreactive hepatitis B Surface Ag Nonreactive Nonreactive Specimen Performing Laboratory Blood [address] [address] Hepatic function panel (02/03/2018 4:10 AM)Only the [...] - 55 U/L Specimen Performing Laboratory Blood [address] [address] Blood gas, arterial (02/02/2018 5:12 AM)Only the [...] 21.0 % Specimen Performing Laboratory Blood, Arterial [address] [address] Prepare Leuko-Red PLT (02/01/2018 11:55 PM) Component Value Ref Range Unit ABO O Neg UNIT NUMBER [id number] Status TRANSFUSED Blood Bank Product PLATELETS PRODUCT CODE H8702H90 Unit ABO O Neg UNIT NUMBER [id number] Status TRANSFUSED Blood Bank Product PLATELETS PRODUCT CODE [id number] Specimen Performing Laboratory Blood S[place] Antibody [...] 6.1 % Specimen Performing Laboratory Blood [facility] [address] [address] CTA carotid (01/31/2018 8:46 PM) Specimen Performing Laboratory YOLLEGE RIS Narrative FINAL REPORT CTA carotids and [...] MD Report Verified Date/Time:01/31/2018 21:00:54 Reading Location: [facility] Radiology Reading Room Procedure Note Interface, External [...] Report Verified Date/Time: 01/31/2018 21:00:54 Reading Location: [facility] Radiology Reading Room brain (01/31/2018 8:46 PM) Specimen Performing Laboratory [employer] FINAL REPORT CTA carotids and brain 01/31/2018 [...] MD Report Verified Date/Time:01/31/2018 21:00:54 Reading Location: [facility] Radiology Reading Room Procedure Note Interface, External [...] Report Verified Date/Time: 01/31/2018 21:00:54 Reading Location: [facility] Radiology Reading Room Lipid panel (01/31/2018 6:32 PM) Component Value Ref Range Triglycerides 85Comment: Specimen slightly hemolyzed mg/dL Cholesterol 174Comment: Specimen slightly hemolyzed mg/dL HDL 56 mg/dL LDL Calculated 101 mg/dL Specimen Performing Laboratory Blood [address] [address] Narrative Triglyceride Reference Range: Low Risk <150 [id number] High Risk 200-499 Very High Risk>=500 Cholesterol Reference Range: Low Risk <200 [id number] High Risk>240 HDL Cholesterol Reference Range: Low Risk >=60 High Risk <40 LDL Cholesterol Reference Range: Optimal<100 Near [id number] Very High >=190 Comprehensive metabolic panel (01/31/2018 [...] FOR DIALYSIS PATIENTS. Specimen Performing Laboratory Blood [address] [address] Type and screen, automated (01/31/2018 6:30 PM) Component Value Ref Range ABO/RH AUTOMATED (BEAKER) O NEGATIVE Ab Scrn POSITIVEComment: ECHO 2 Specimen Performing Laboratory Blood [address] [address] Vitamin B12 and Folate (01/31/2018 6:30 PM) Component Value Ref Range Vitamin B12 340 213 - 816 pg/mL Folate 11.0 >=7.0 ng/mL Specimen Performing Laboratory Blood [address] [address] TSH/Free T4 If Indicated (01/31/2018 6:30 PM) Component Value Ref Range TSH 2.07 0.35 - 4.94 uIU/mL Specimen Performing Laboratory Blood [address] [address] RPR (01/31/2018 6:30 PM) Component Value Ref Range RPR Nonreactive Nonreactive Specimen Performing Laboratory Blood [address] [address] after 03/03/2017
--- OUTSIDE RECORDS SUMMARY | 2018-03-04 15:28 | XMS REPORT ---
:1950 [facility] Organization [facility] Address [address] [place] [address] Dr. Cordero [address] [place] [id number] Care Team Providers Name Role Phone SADAF MORENO Unavailable Unavailable Problems This patient has no known problems. Allergies, Adverse Reactions, Alerts This patient has no known allergies or adverse reactions. Medications This patient has no known medications. Results Test Description Test Time Test Comments Text Results Atomic Results Result Comments MAGNESIUM 2018-02-14 06:17:00 Test Item Value Reference Range Comments MAGNESIUM (BEAKER) (test tdnj=574) 2.0 mg/dL 1.6-2.6 BASIC METABOLIC [id number] 06:17:00 Test Item Value Reference Range Comments SODIUM (BEAKER) (test 143 meq/L 136-145 kaqc=003) POTASSIUM (BEAKER) (test 3.7 meq/L 3.5-5.1 kqnn=327) CHLORIDE (BEAKER) (test 113 meq/L 98-107 eoij=276) CO2 (BEAKER) (test 22 meq/L 22-29 ledu=894) BLOOD UREA NITROGEN 14 mg/dL 7-21 (BEAKER) (test mfaq=465) CREATININE (BEAKER) (test 0.69 mg/dL 0.57-1.25 zvwq=422) GLUCOSE RANDOM (BEAKER) 97 mg/dL 70-105 (test tfkt=856) CALCIUM (BEAKER) (test 9.0 mg/dL 8.4-10.2 cgir=546) EGFR (BEAKER) (test 114 mL/min/1.73 sq m ESTIMATED GFR IS NOT bjzl=7445) ACCURATE CREATININE CLEARANCE IN PREDICTING GLOMERULAR FILTRATION RATE. ESTIMATED GFR IS NOT APPLICABLE FOR DIALYSIS PATIENTS. CBC W/PLT COUNT & AUTO [id number] 05:34:00 Test Item Value Reference Range Comments WHITE BLOOD CELL COUNT (BEAKER) (test xzho=100) 9.4 K/ L 3.5-10.5 RED BLOOD CELL COUNT (BEAKER) (test qxff=099) 4.25 M/ L 4.63-6.08 HEMOGLOBIN (BEAKER) (test mtnn=770) 13.7 GM/DL 13.7-17.5 HEMATOCRIT (BEAKER) (test vilg=183) 40.6 % 40.1-51.0 MEAN CORPUSCULAR VOLUME (BEAKER) (test sfds=661) 95.5 fL 79.0-92.2 MEAN CORPUSCULAR HEMOGLOBIN (BEAKER) (test 32.2 pg 25.7-32.2 iucs=711) MEAN CORPUSCULAR HEMOGLOBIN CONC (BEAKER) (test 33.7 GM/DL 32.3-36.5 awwf=324) RED CELL DISTRIBUTION WIDTH (BEAKER) (test 13.0 % 11.6-14.4 ztet=854) PLATELET COUNT (BEAKER) (test xsai=342) 321 K/CU MM 150-450 MEAN PLATELET VOLUME (BEAKER) (test nmib=577) 11.0 fL 9.4-12.4 NUCLEATED RED BLOOD CELLS (BEAKER) (test 0 /100 WBC 0-0 ujll=120) NEUTROPHILS RELATIVE PERCENT (BEAKER) (test 72 % ashs=824) LYMPHOCYTES RELATIVE PERCENT (BEAKER) (test 17 % kjpg=125) MONOCYTES RELATIVE PERCENT (BEAKER) (test 10 % uoov=445) EOSINOPHILS RELATIVE PERCENT (BEAKER) (test 0 % gvdm=752) BASOPHILS RELATIVE PERCENT (BEAKER) (test 0 % hkdr=886) NEUTROPHILS ABSOLUTE COUNT (BEAKER) (test 6.77 K/ L 1.78-5.38 onip=853) LYMPHOCYTES ABSOLUTE COUNT (BEAKER) (test 1.57 K/ L 1.32-3.57 igrc=001) MONOCYTES ABSOLUTE COUNT (BEAKER) (test 0.91 K/ L 0.30-0.82 kojb=089) EOSINOPHILS ABSOLUTE COUNT (BEAKER) (test 0.00 K/ L 0.04-0.54 faqu=037) BASOPHILS ABSOLUTE COUNT (BEAKER) (test 0.04 K/ L 0.01-0.08 ixbf=997) IMMATURE GRANULOCYTES-RELATIVE PERCENT (BEAKER) 1 % 0-1 (test gckk=4822) POCT-GLUCOSE [id number] 05:21:00 Test Item Value Reference Range Comments POC-GLUCOSE METER (BEAKER) 105 mg/dL 70-[address] [facility] [address] [facility] (test ywuo=0013) [facility] [address] POCT-GLUCOSE [id number] 01:28:00 Test Item Value Reference Range Comments POC-GLUCOSE METER (BEAKER) 108 mg/dL 70-[address] [facility] [address] [facility] (test idmj=5894) [facility] [address] [id number] 05:19:00 Test Item Value Reference Range Comments MAGNESIUM (BEAKER) (test ohkb=822) 1.8 mg/dL 1.6-2.6 BASIC METABOLIC [id number] 05:19:00 Test Item Value Reference Range Comments SODIUM (BEAKER) (test 143 meq/L 136-145 hboe=837) POTASSIUM (BEAKER) (test 3.8 meq/L 3.5-5.1 jjmq=615) CHLORIDE (BEAKER) (test 115 meq/L 98-107 dmsw=674) CO2 (BEAKER) (test 21 meq/L 22-29 axbs=968) BLOOD UREA NITROGEN 18 mg/dL 7-21 (BEAKER) (test qjir=749) CREATININE (BEAKER) (test 0.71 mg/dL 0.57-1.25 bwfh=603) GLUCOSE RANDOM (BEAKER) 104 mg/dL 70-105 (test fzzt=902) CALCIUM (BEAKER) (test 8.8 mg/dL 8.4-10.2 adpf=165) EGFR (BEAKER) (test 111 mL/min/1.73 sq m ESTIMATED GFR IS NOT xumv=6412) ACCURATE CREATININE CLEARANCE IN PREDICTING GLOMERULAR FILTRATION RATE. ESTIMATED GFR IS NOT APPLICABLE FOR DIALYSIS PATIENTS. CBC W/PLT COUNT & AUTO [id number] 04:56:00 Test Item Value Reference Range Comments WHITE BLOOD CELL COUNT (BEAKER) (test pwir=375) 9.9 K/ L 3.5-10.5 RED BLOOD CELL COUNT (BEAKER) (test qkuz=125) 4.06 M/ L 4.63-6.08 HEMOGLOBIN (BEAKER) (test bydb=577) 12.8 GM/DL 13.7-17.5 HEMATOCRIT (BEAKER) (test jmuf=216) 39.0 % 40.1-51.0 MEAN CORPUSCULAR VOLUME (BEAKER) (test khap=079) 96.1 fL 79.0-92.2 MEAN CORPUSCULAR HEMOGLOBIN (BEAKER) (test 31.5 pg 25.7-32.2 cuam=376) MEAN CORPUSCULAR HEMOGLOBIN CONC (BEAKER) (test 32.8 GM/DL 32.3-36.5 jkrm=338) RED CELL DISTRIBUTION WIDTH (BEAKER) (test 13.2 % 11.6-14.4 nbuc=610) PLATELET COUNT (BEAKER) (test levj=677) 293 K/CU MM 150-450 MEAN PLATELET VOLUME (BEAKER) (test sjdp=638) 11.4 fL 9.4-12.4 NUCLEATED RED BLOOD CELLS (BEAKER) (test 0 /100 WBC 0-0 kacq=084) NEUTROPHILS RELATIVE PERCENT (BEAKER) (test 72 % uzyi=189) LYMPHOCYTES RELATIVE PERCENT (BEAKER) (test 14 % jjna=899) MONOCYTES RELATIVE PERCENT (BEAKER) (test 12 % oqfw=203) EOSINOPHILS RELATIVE PERCENT (BEAKER) (test 0 % mhak=665) BASOPHILS RELATIVE PERCENT (BEAKER) (test 1 % sxls=869) NEUTROPHILS ABSOLUTE COUNT (BEAKER) (test 7.15 K/ L 1.78-5.38 seih=697) LYMPHOCYTES ABSOLUTE COUNT (BEAKER) (test 1.38 K/ L 1.32-3.57 qgdr=570) MONOCYTES ABSOLUTE COUNT (BEAKER) (test 1.21 K/ L 0.30-0.82 zwxw=938) EOSINOPHILS ABSOLUTE COUNT (BEAKER) (test 0.00 K/ L 0.04-0.54 nmbe=668) BASOPHILS ABSOLUTE COUNT (BEAKER) (test 0.05 K/ L 0.01-0.08 zljj=036) IMMATURE GRANULOCYTES-RELATIVE PERCENT (BEAKER) 1 % 0-1 (test zbha=3612) POCT-GLUCOSE [id number] 00:15:00 Test Item Value Reference Range Comments POC-GLUCOSE METER (BEAKER) 104 mg/dL 70-[address] [facility] [address] [facility] (test srlc=2237) [facility] [address] BLOOD [id number] 11:00:00 Test Item Value Reference Range Comments CULTURE (BEAKER) (test gxbf=0429) No growth in 5 days BLOOD [id number] 11:00:00 Test Item Value Reference Range Comments CULTURE (BEAKER) (test kara=8704) No growth in 5 days [id number] 06:39:00 Test Item Value Reference Range Comments MAGNESIUM (BEAKER) (test 2.2 mg/dL 1.6-2.6 Specimen slightly hemolyzed euxc=120) BASIC METABOLIC [id number] 06:39:00 Test Item Value Reference Range Comments SODIUM (BEAKER) (test 140 meq/L 136-145 kyul=980) POTASSIUM (BEAKER) (test 4.1 meq/L 3.5-5.1 Specimen slightly yyxw=010) hemolyzed CHLORIDE (BEAKER) (test 113 meq/L 98-107 yehs=923) CO2 (BEAKER) (test 18 meq/L 22-29 kiyb=875) BLOOD UREA NITROGEN 17 mg/dL 7-21 (BEAKER) (test qhof=611) CREATININE (BEAKER) (test 0.68 mg/dL 0.57-1.25 Specimen slightly alvq=703) hemolyzed GLUCOSE RANDOM (BEAKER) 104 mg/dL 70-105 (test cnmi=353) CALCIUM (BEAKER) (test 9.3 mg/dL 8.4-10.2 plfc=234) EGFR (BEAKER) (test 116 mL/min/1.73 sq m ESTIMATED GFR IS NOT hwnc=1328) ACCURATE CREATININE CLEARANCE IN PREDICTING GLOMERULAR FILTRATION RATE. ESTIMATED GFR IS NOT APPLICABLE FOR DIALYSIS PATIENTS. CBC W/PLT COUNT & AUTO [id number] 06:02:00 Test Item Value Reference Range Comments WHITE BLOOD CELL COUNT (BEAKER) (test flpk=699) 13.0 K/ L 3.5-10.5 RED BLOOD CELL COUNT (BEAKER) (test knoj=186) 4.11 M/ L 4.63-6.08 HEMOGLOBIN (BEAKER) (test xetx=731) 13.2 GM/DL 13.7-17.5 HEMATOCRIT (BEAKER) (test vfsi=513) 39.7 % 40.1-51.0 MEAN CORPUSCULAR VOLUME (BEAKER) (test zesl=005) 96.6 fL 79.0-92.2 MEAN CORPUSCULAR HEMOGLOBIN (BEAKER) (test 32.1 pg 25.7-32.2 fmay=977) MEAN CORPUSCULAR HEMOGLOBIN CONC (BEAKER) (test 33.2 GM/DL 32.3-36.5 yhss=494) RED CELL DISTRIBUTION WIDTH (BEAKER) (test 13.2 % 11.6-14.4 fzvz=402) PLATELET COUNT (BEAKER) (test wbqk=947) 300 K/CU MM 150-450 MEAN PLATELET VOLUME (BEAKER) (test yzbj=537) 11.6 fL 9.4-12.4 NUCLEATED RED BLOOD CELLS (BEAKER) (test 0 /100 WBC 0-0 cmjr=212) NEUTROPHILS RELATIVE PERCENT (BEAKER) (test 77 % qiab=668) LYMPHOCYTES RELATIVE PERCENT (BEAKER) (test 11 % hsvx=440) MONOCYTES RELATIVE PERCENT (BEAKER) (test 11 % okzw=254) EOSINOPHILS RELATIVE PERCENT (BEAKER) (test 0 % akcv=361) BASOPHILS RELATIVE PERCENT (BEAKER) (test 0 % feng=054) NEUTROPHILS ABSOLUTE COUNT (BEAKER) (test 10.02 K/ L 1.78-5.38 hbdx=519) LYMPHOCYTES ABSOLUTE COUNT (BEAKER) (test 1.47 K/ L 1.32-3.57 fcek=371) MONOCYTES ABSOLUTE COUNT (BEAKER) (test 1.40 K/ L 0.30-0.82 yvof=754) EOSINOPHILS ABSOLUTE COUNT (BEAKER) (test 0.00 K/ L 0.04-0.54 ikfh=248) BASOPHILS ABSOLUTE COUNT (BEAKER) (test 0.05 K/ L 0.01-0.08 bfhb=417) IMMATURE GRANULOCYTES-RELATIVE PERCENT (BEAKER) 1 % 0-1 (test jcep=2574) FL, ESOPH, SWALLOW FUNCTION, WITH CINE OR [id number] 13:56:00Reason for exam:->dysphagiaFINAL REPORT INDICATION: Dysphagia. TECHNIQUE: [...] MDReport Verified Date/Time: 02/11/2018 13:56:12 Reading Location: [facility] [id number] Ortho Consult Reading Room POCT-GLUCOSE [id number] 06:21:00 Test Item Value Reference Range Comments POC-GLUCOSE METER (BEAKER) 119 mg/dL 70-[address] [facility] [address] [facility] (test mnal=7640) [facility] [address] [id number] 05:33:00 Test Item Value Reference Range Comments MAGNESIUM (BEAKER) (test ujtp=808) 1.7 mg/dL 1.6-2.6 BASIC METABOLIC [id number] 05:33:00 Test Item Value Reference Range Comments SODIUM (BEAKER) (test 140 meq/L 136-145 qqnp=865) POTASSIUM (BEAKER) (test 3.7 meq/L 3.5-5.1 qoei=717) CHLORIDE (BEAKER) (test 111 meq/L 98-107 dkge=487) CO2 (BEAKER) (test 20 meq/L 22-29 axgq=143) BLOOD UREA NITROGEN 18 mg/dL 7-21 (BEAKER) (test jgqe=076) CREATININE (BEAKER) (test 0.69 mg/dL 0.57-1.25 uzpa=351) GLUCOSE RANDOM (BEAKER) 119 mg/dL 70-105 (test gyvb=843) CALCIUM (BEAKER) (test 9.4 mg/dL 8.4-10.2 fbik=126) EGFR (BEAKER) (test 114 mL/min/1.73 sq m ESTIMATED GFR IS NOT rqru=2228) ACCURATE CREATININE CLEARANCE IN PREDICTING GLOMERULAR FILTRATION RATE. ESTIMATED GFR IS NOT APPLICABLE FOR DIALYSIS PATIENTS. CBC W/PLT COUNT & AUTO [id number] 05:14:00 Test Item Value Reference Range Comments WHITE BLOOD CELL COUNT (BEAKER) (test tpez=714) 11.8 K/ L 3.5-10.5 RED BLOOD CELL COUNT (BEAKER) (test kmjc=065) 4.18 M/ L 4.63-6.08 HEMOGLOBIN (BEAKER) (test ajbm=764) 13.2 GM/DL 13.7-17.5 HEMATOCRIT (BEAKER) (test bkrt=125) 39.5 % 40.1-51.0 MEAN CORPUSCULAR VOLUME (BEAKER) (test yfru=694) 94.5 fL 79.0-92.2 MEAN CORPUSCULAR HEMOGLOBIN (BEAKER) (test 31.6 pg 25.7-32.2 hdkt=906) MEAN CORPUSCULAR HEMOGLOBIN CONC (BEAKER) (test 33.4 GM/DL 32.3-36.5 ugmo=449) RED CELL DISTRIBUTION WIDTH (BEAKER) (test 13.1 % 11.6-14.4 iyol=172) PLATELET COUNT (BEAKER) (test udir=488) 257 K/CU MM 150-450 MEAN PLATELET VOLUME (BEAKER) (test xhaw=368) 11.7 fL 9.4-12.4 NUCLEATED RED BLOOD CELLS (BEAKER) (test 0 /100 WBC 0-0 kypk=200) NEUTROPHILS RELATIVE PERCENT (BEAKER) (test 77 % xxkq=768) LYMPHOCYTES RELATIVE PERCENT (BEAKER) (test 12 % dwoq=927) MONOCYTES RELATIVE PERCENT (BEAKER) (test 10 % lmvq=698) EOSINOPHILS RELATIVE PERCENT (BEAKER) (test 0 % dsmb=233) BASOPHILS RELATIVE PERCENT (BEAKER) (test 0 % eedl=417) NEUTROPHILS ABSOLUTE COUNT (BEAKER) (test 9.12 K/ L 1.78-5.38 dlph=781) LYMPHOCYTES ABSOLUTE COUNT (BEAKER) (test 1.39 K/ L 1.32-3.57 lkam=753) MONOCYTES ABSOLUTE COUNT (BEAKER) (test 1.21 K/ L 0.30-0.82 chmh=774) EOSINOPHILS ABSOLUTE COUNT (BEAKER) (test 0.00 K/ L 0.04-0.54 qxmn=241) BASOPHILS ABSOLUTE COUNT (BEAKER) (test 0.04 K/ L 0.01-0.08 lhsj=241) IMMATURE GRANULOCYTES-RELATIVE PERCENT (BEAKER) 1 % 0-1 (test jfeq=5397) POCT-GLUCOSE [id number] 23:54:00 Test Item Value Reference Range Comments POC-GLUCOSE METER (BEAKER) 125 mg/dL 70-[address] [facility] [address] [facility] (test cmih=8527) [facility] [address] POCT-GLUCOSE [id number] 18:08:00 Test Item Value Reference Range Comments POC-GLUCOSE METER (BEAKER) 106 mg/dL 70-[address] [facility] [address] [facility] (test ujku=8126) [facility] [address] POCT-GLUCOSE [id number] 13:26:00 Test Item Value Reference Range Comments POC-GLUCOSE METER (BEAKER) 122 mg/dL 70-110 TESTED AT [address] (test uuda=1242) [facility] [address] POCT-GLUCOSE [id number] 06:11:00 Test Item Value Reference Range Comments POC-GLUCOSE METER (BEAKER) 121 mg/dL 70-110 TESTED AT [address] (test qdal=9649) [facility] [address] VANCOMYCIN LEVEL, [id number] 02:13:00 Test Item Value Reference Range Comments VANCOMYCIN TROUGH (BEAKER) (test gdez=005) 7.7 ug/mL 10.0-20.0 [id number] 02:00:00 Test Item Value Reference Range Comments MAGNESIUM (BEAKER) (test silq=951) 1.7 mg/dL 1.6-2.6 BASIC METABOLIC [id number] 02:00:00 Test Item Value Reference Range Comments SODIUM (BEAKER) (test 141 meq/L 136-145 lgng=636) POTASSIUM (BEAKER) (test 3.7 meq/L 3.5-5.1 wuhb=701) CHLORIDE (BEAKER) (test 113 meq/L 98-107 hrxz=743) CO2 (BEAKER) (test 18 meq/L 22-29 hspg=981) BLOOD UREA NITROGEN 20 mg/dL 7-21 (BEAKER) (test syyq=858) CREATININE (BEAKER) (test 0.70 mg/dL 0.57-1.25 bjne=204) GLUCOSE RANDOM (BEAKER) 127 mg/dL 70-105 (test ogrw=646) CALCIUM (BEAKER) (test 8.8 mg/dL 8.4-10.2 feef=947) EGFR (BEAKER) (test 112 mL/min/1.73 sq m ESTIMATED GFR IS NOT edsz=9413) ACCURATE CREATININE CLEARANCE IN PREDICTING GLOMERULAR FILTRATION RATE. ESTIMATED GFR IS NOT APPLICABLE FOR DIALYSIS PATIENTS. CBC W/PLT COUNT & AUTO [id number] 01:46:00 Test Item Value Reference Range Comments WHITE BLOOD CELL COUNT (BEAKER) (test mbpj=043) 9.3 K/ L 3.5-10.5 RED BLOOD CELL COUNT (BEAKER) (test hxbu=438) 4.00 M/ L 4.63-6.08 HEMOGLOBIN (BEAKER) (test zaiz=028) 12.6 GM/DL 13.7-17.5 HEMATOCRIT (BEAKER) (test lndl=123) 38.4 % 40.1-51.0 MEAN CORPUSCULAR VOLUME (BEAKER) (test kyzf=292) 96.0 fL 79.0-92.2 MEAN CORPUSCULAR HEMOGLOBIN (BEAKER) (test 31.5 pg 25.7-32.2 hunt=695) MEAN CORPUSCULAR HEMOGLOBIN CONC (BEAKER) (test 32.8 GM/DL 32.3-36.5 zvmq=816) RED CELL DISTRIBUTION WIDTH (BEAKER) (test 13.2 % 11.6-14.4 zzgs=389) PLATELET COUNT (BEAKER) (test axbf=312) 213 K/CU MM 150-450 MEAN PLATELET VOLUME (BEAKER) (test ghtj=332) 12.0 fL 9.4-12.4 NUCLEATED RED BLOOD CELLS (BEAKER) (test 0 /100 WBC 0-0 bqof=517) NEUTROPHILS RELATIVE PERCENT (BEAKER) (test 76 % xdei=842) LYMPHOCYTES RELATIVE PERCENT (BEAKER) (test 12 % mmcq=146) MONOCYTES RELATIVE PERCENT (BEAKER) (test 11 % sghl=158) EOSINOPHILS RELATIVE PERCENT (BEAKER) (test 0 % biqg=716) BASOPHILS RELATIVE PERCENT (BEAKER) (test 0 % hnnl=549) NEUTROPHILS ABSOLUTE COUNT (BEAKER) (test 7.01 K/ L 1.78-5.38 smam=656) LYMPHOCYTES ABSOLUTE COUNT (BEAKER) (test 1.12 K/ L 1.32-3.57 izxw=963) MONOCYTES ABSOLUTE COUNT (BEAKER) (test 1.03 K/ L 0.30-0.82 arcf=879) EOSINOPHILS ABSOLUTE COUNT (BEAKER) (test 0.00 K/ L 0.04-0.54 okny=368) BASOPHILS ABSOLUTE COUNT (BEAKER) (test 0.04 K/ L 0.01-0.08 rece=279) IMMATURE GRANULOCYTES-RELATIVE PERCENT (BEAKER) 1 % 0-1 (test ohnb=5402) POCT-GLUCOSE [id number] 00:38:00 Test Item Value Reference Range Comments POC-GLUCOSE METER (BEAKER) 116 mg/dL 70-110 TESTED AT [address] (test zpse=2772) [place] [address] POCT-GLUCOSE [id number] 18:06:00 Test Item Value Reference Range Comments POC-GLUCOSE METER (BEAKER) 118 mg/dL 70-110 TESTED AT [address] (test bdrf=1237) [place] [address] POCT-GLUCOSE [id number] 12:07:00 Test Item Value Reference Range Comments POC-GLUCOSE METER (BEAKER) 126 mg/dL 70-110 TESTED AT [address] (test btca=2017) [place] [address] URINE [id number] 10:54:00 Test Item Value Reference Range Comments CULTURE ([facility]) (test CITROBACTER WERKMANNI >100,000 col/mL aodv=2265) Citrobacter werkmanni Amikacin (test code=1) Aztreonam (test code=32) Cefepime (test code=51) Cefoxitin (test code=68) Ceftazidime (test code=27) Ceftriaxone (test code=52) Ertapenem (test code=38) Gentamicin (test code=18) Levofloxacin (test code=22) Meropenem (test code=34) Nitrofurantoin (test code=23) Piperacillin + Tazobactam (test code=29) Tetracycline (test code=2) Tobramycin (test code=25) Trimethoprim + Sulfamethoxazole (test code=47) CBC W/PLT COUNT & AUTO [id number] 10:20:00 Test Item Value Reference Range Comments WHITE BLOOD CELL COUNT (BEAKER) (test pues=157) 10.1 K/ L 3.5-10.5 RED BLOOD CELL COUNT (BEAKER) (test pval=176) 3.97 M/ L 4.63-6.08 HEMOGLOBIN (BEAKER) (test ptwa=134) 12.5 GM/DL 13.7-17.5 HEMATOCRIT (BEAKER) (test avfs=311) 38.8 % 40.1-51.0 MEAN CORPUSCULAR VOLUME (BEAKER) (test wncz=621) 97.7 fL 79.0-92.2 MEAN CORPUSCULAR HEMOGLOBIN (BEAKER) (test 31.5 pg 25.7-32.2 vgee=523) MEAN CORPUSCULAR HEMOGLOBIN CONC (BEAKER) (test 32.2 GM/DL 32.3-36.5 szpb=084) RED CELL DISTRIBUTION WIDTH (BEAKER) (test 13.5 % 11.6-14.4 jicr=101) PLATELET COUNT (BEAKER) (test rded=696) 224 K/CU MM 150-450 MEAN PLATELET VOLUME (BEAKER) (test cohx=264) 11.6 fL 9.4-12.4 NUCLEATED RED BLOOD CELLS (BEAKER) (test 0 /100 WBC 0-0 gdgw=658) NEUTROPHILS RELATIVE PERCENT (BEAKER) (test 78 % deqv=763) LYMPHOCYTES RELATIVE PERCENT (BEAKER) (test 12 % iiku=461) MONOCYTES RELATIVE PERCENT (BEAKER) (test 9 % muzk=705) EOSINOPHILS RELATIVE PERCENT (BEAKER) (test 0 % lkrc=812) BASOPHILS RELATIVE PERCENT (BEAKER) (test 0 % crkp=296) NEUTROPHILS ABSOLUTE COUNT (BEAKER) (test 7.84 K/ L 1.78-5.38 uulx=536) LYMPHOCYTES ABSOLUTE COUNT (BEAKER) (test 1.21 K/ L 1.32-3.57 liyv=385) MONOCYTES ABSOLUTE COUNT (BEAKER) (test 0.95 K/ L 0.30-0.82 pbmw=537) EOSINOPHILS ABSOLUTE COUNT (BEAKER) (test 0.01 K/ L 0.04-0.54 znwe=882) BASOPHILS ABSOLUTE COUNT (BEAKER) (test 0.04 K/ L 0.01-0.08 jpio=159) IMMATURE GRANULOCYTES-RELATIVE PERCENT (BEAKER) 1 % 0-1 (test mang=7066) [id number] 09:52:00 Test Item Value Reference Range Comments MAGNESIUM (BEAKER) (test tzvk=596) 1.6 mg/dL 1.6-2.6 BASIC METABOLIC [id number] 09:52:00 Test Item Value Reference Range Comments SODIUM (BEAKER) (test 144 meq/L 136-145 fcng=600) POTASSIUM (BEAKER) (test 3.6 meq/L 3.5-5.1 ubhs=253) CHLORIDE (BEAKER) (test 116 meq/L 98-107 ibhy=263) CO2 (BEAKER) (test 21 meq/L 22-29 mzfn=261) BLOOD UREA NITROGEN 23 mg/dL 7-21 (BEAKER) (test cjls=032) CREATININE (BEAKER) (test 0.82 mg/dL 0.57-1.25 ouvs=601) GLUCOSE RANDOM (BEAKER) 118 mg/dL 70-105 (test tmjd=444) CALCIUM (BEAKER) (test 9.0 mg/dL 8.4-10.2 goaf=097) EGFR (BEAKER) (test 94 mL/min/1.73 sq m ESTIMATED GFR IS NOT obkf=5697) ACCURATE CREATININE CLEARANCE IN PREDICTING GLOMERULAR FILTRATION RATE. ESTIMATED GFR IS NOT APPLICABLE FOR DIALYSIS PATIENTS. POCT-GLUCOSE [id number] 06:02:00 Test Item Value Reference Range Comments POC-GLUCOSE METER (BEAKER) 117 mg/dL 70-110 TESTED AT [address] (test mrap=4841) [facility] [address] SPUTUM CULTURE + GRAM [id number] 13:31:00 Test Item Value Reference Range Comments CULTURE (BEAKER) (test STAPHYLOCOCCUS AUREUS 3+ Staphylococcus prll=7014) aureus Clindamycin (test code=10) Erythromycin (test code=4) Linezolid (test code=40) Nitrofurantoin (test code=23) Oxacillin (test code=14) Rifampin (test code=43) Tetracycline (test code=2) Trimethoprim + Sulfamethoxazole (test code=47) Vancomycin (test code=13) CULTURE (BEAKER) (test 4+ Haemophilus vfib=2868) influenzaeBeta-lactama se negative GRAM STAIN RESULT 4+ WBCs (BEAKER) (test psxo=2198) GRAM STAIN RESULT 0-5 epithelial cells (BEAKER) (test sygs=042006) GRAM STAIN RESULT 4+ gram negative (BEAKER) (test coccobacilli gale=670946) GRAM STAIN RESULT 4+ gram positive cocci (BEAKER) (test in chains, pairs and pejk=349120) clusters 3+ Normal respiratory carla presentPOCT-GLUCOSE [id number] 12:11:00 Test Item Value Reference Range Comments POC-GLUCOSE METER (BEAKER) 130 mg/dL 70-[address] [facility] [address] (test bncl=2015) [place] [address] CBC W/PLT COUNT & AUTO [id number] 11:19:00 Test Item Value Reference Range Comments WHITE BLOOD CELL COUNT (BEAKER) (test myvd=988) 13.2 K/ L 3.5-10.5 RED BLOOD CELL COUNT (BEAKER) (test yhds=810) 4.32 M/ L 4.63-6.08 HEMOGLOBIN (BEAKER) (test axni=077) 14.0 GM/DL 13.7-17.5 HEMATOCRIT (BEAKER) (test hhuk=783) 41.4 % 40.1-51.0 MEAN CORPUSCULAR VOLUME (BEAKER) (test bhgf=978) 95.8 fL 79.0-92.2 MEAN CORPUSCULAR HEMOGLOBIN (BEAKER) (test 32.4 pg 25.7-32.2 exgq=547) MEAN CORPUSCULAR HEMOGLOBIN CONC (BEAKER) (test 33.8 GM/DL 32.3-36.5 edtd=068) RED CELL DISTRIBUTION WIDTH (BEAKER) (test 13.5 % 11.6-14.4 chgz=924) PLATELET COUNT (BEAKER) (test jumo=367) 219 K/CU MM 150-450 MEAN PLATELET VOLUME (BEAKER) (test hosm=835) 11.2 fL 9.4-12.4 NUCLEATED RED BLOOD CELLS (BEAKER) (test 0 /100 WBC 0-0 hyjz=441) IMMATURE GRANULOCYTES-RELATIVE PERCENT (BEAKER) 1 % 0-1 (test khwb=0663) (MANUAL DIFFERENTIAL)2018-02-08 11:19:00 Test Item Value Reference Range Comments NEUTROPHILS - REL (DIFF) (BEAKER) (test 81 % kyvi=4609) LYMPHOCYTES - REL (DIFF) (BEAKER) (test 6 % jcce=2374) MONOCYTES - REL (DIFF) (BEAKER) (test twmx=7071) 9 % BANDS - REL (DIFF) (BEAKER) (test wczn=0667) 4 % 0-10 NEUTROPHILS - ABS (DIFF) (BEAKER) (test 10.69 K/ L 1.80-8.00 qtyw=1252) LYMPHOCYTES - ABS (DIFF) (BEAKER) (test 0.79 K/ L 1.48-4.50 wede=9117) MONOCYTES - ABS (DIFF) (BEAKER) (test amwy=9357) 1.19 K/ L 0.00-1.30 BANDS-ABS (DIFF) (BEAKER) (test ygzn=3009) 0.5 K/ L 0.0-0.8 TOTAL COUNTED (BEAKER) (test kuxj=7872) 100 BANDS + SEGMENTED NEUTROPHILS (BEAKER) (test 11.22 fene=7654) WBC MORPHOLOGY (BEAKER) (test nchl=952) Normal RBC MORPHOLOGY (BEAKER) (test ajli=387) Normal LARGE PLT(BEAKER) (test jxnw=6984) Present VANCOMYCIN LEVEL, [id number] 10:54:00 Test Item Value Reference Range Comments VANCOMYCIN TROUGH (BEAKER) (test yipr=070) 4.9 ug/mL 10.0-20.0 [id number] 05:55:00 Test Item Value Reference Range Comments MAGNESIUM (BEAKER) (test 2.1 mg/dL 1.6-2.6 Specimen slightly hemolyzed pksl=136) BASIC METABOLIC [id number] 05:55:00 Test Item Value Reference Range Comments SODIUM (BEAKER) (test 150 meq/L 136-145 bayj=964) POTASSIUM (BEAKER) (test 3.7 meq/L 3.5-5.1 Specimen slightly tesy=686) hemolyzed CHLORIDE (BEAKER) (test 120 meq/L 98-107 nuoa=676) CO2 (BEAKER) (test 18 meq/L 22-29 lqhl=909) BLOOD UREA NITROGEN 28 mg/dL 7-21 (BEAKER) (test treq=191) CREATININE (BEAKER) (test 0.95 mg/dL 0.57-1.25 Specimen slightly dgvd=082) hemolyzed GLUCOSE RANDOM (BEAKER) 136 mg/dL 70-105 (test hmxt=987) CALCIUM (BEAKER) (test 9.6 mg/dL 8.4-10.2 wkwv=547) EGFR (BEAKER) (test 79 mL/min/1.73 sq m ESTIMATED GFR IS NOT rdsz=1045) ACCURATE CREATININE CLEARANCE IN PREDICTING GLOMERULAR FILTRATION RATE. ESTIMATED GFR IS NOT APPLICABLE FOR DIALYSIS PATIENTS. POCT-GLUCOSE [id number] 05:54:00 Test Item Value Reference Range Comments POC-GLUCOSE METER (BEAKER) 142 mg/dL 70-110 TESTED AT [address] (test zkyp=1776) [facility] [address] POCT-GLUCOSE [id number] 01:01:00 Test Item Value Reference Range Comments POC-GLUCOSE METER (BEAKER) 128 mg/dL 70-110 TESTED AT [address] (test nidi=2266) [facility] [address] POCT-GLUCOSE [id number] 17:53:00 Test Item Value Reference Range Comments POC-GLUCOSE METER (BEAKER) 123 mg/dL 70-110 TESTED AT [address] (test bxoy=6790) [facility] [address] POCT-GLUCOSE [id number] 12:36:00 Test Item Value Reference Range Comments POC-GLUCOSE METER (BEAKER) 136 mg/dL 70-110 TESTED AT [address] (test lmss=3608) [facility] [address] CBC W/PLT COUNT & AUTO [id number] 11:39:00 Test Item Value Reference Range Comments WHITE BLOOD CELL COUNT (BEAKER) (test czij=839) 14.1 K/ L 3.5-10.5 RED BLOOD CELL COUNT (BEAKER) (test aqhu=070) 4.59 M/ L 4.63-6.08 HEMOGLOBIN (BEAKER) (test qcqg=823) 14.7 GM/DL 13.7-17.5 HEMATOCRIT (BEAKER) (test cuxf=572) 43.4 % 40.1-51.0 MEAN CORPUSCULAR VOLUME (BEAKER) (test wbhi=331) 94.6 fL 79.0-92.2 MEAN CORPUSCULAR HEMOGLOBIN (BEAKER) (test 32.0 pg 25.7-32.2 cmif=146) MEAN CORPUSCULAR HEMOGLOBIN CONC (BEAKER) (test 33.9 GM/DL 32.3-36.5 lgdo=620) RED CELL DISTRIBUTION WIDTH (BEAKER) (test 13.3 % 11.6-14.4 xwwn=563) PLATELET COUNT (BEAKER) (test ecsl=514) 227 K/CU MM 150-450 MEAN PLATELET VOLUME (BEAKER) (test lubz=395) 10.6 fL 9.4-12.4 NUCLEATED RED BLOOD CELLS (BEAKER) (test 0 /100 WBC 0-0 hklf=449) NEUTROPHILS RELATIVE PERCENT (BEAKER) (test 85 % vnej=347) LYMPHOCYTES RELATIVE PERCENT (BEAKER) (test 3 % xjbs=298) MONOCYTES RELATIVE PERCENT (BEAKER) (test 11 % ymzg=791) EOSINOPHILS RELATIVE PERCENT (BEAKER) (test 0 % rkur=579) BASOPHILS RELATIVE PERCENT (BEAKER) (test 0 % ivut=940) NEUTROPHILS ABSOLUTE COUNT (BEAKER) (test 11.93 K/ L 1.78-5.38 lfsg=847) LYMPHOCYTES ABSOLUTE COUNT (BEAKER) (test 0.48 K/ L 1.32-3.57 jgyd=131) MONOCYTES ABSOLUTE COUNT (BEAKER) (test 1.57 K/ L 0.30-0.82 oggl=478) EOSINOPHILS ABSOLUTE COUNT (BEAKER) (test 0.00 K/ L 0.04-0.54 xrhb=999) BASOPHILS ABSOLUTE COUNT (BEAKER) (test 0.03 K/ L 0.01-0.08 mhjb=732) IMMATURE GRANULOCYTES-RELATIVE PERCENT (BEAKER) 1 % 0-1 (test xovv=9303) (MANUAL DIFFERENTIAL)2018-02-07 11:39:00 Test Item Value Reference Range Comments TOTAL COUNTED (BEAKER) (test dxvd=0417) WBC MORPHOLOGY (BEAKER) (test dbtx=253) Normal PLT MORPHOLOGY (BEAKER) (test azpw=072) Normal RBC MORPHOLOGY (BEAKER) (test hqqv=508) Normal POCT-GLUCOSE [id number] 07:00:00 Test Item Value Reference Range Comments POC-GLUCOSE METER (BEAKER) 101 mg/dL 70-110 TESTED AT [address] (test tusd=7286) [facility] [address] BASIC METABOLIC [id number] 06:30:00 Test Item Value Reference Range Comments SODIUM (BEAKER) (test 153 meq/L 136-145 rlvv=808) POTASSIUM (BEAKER) (test 3.5 meq/L 3.5-5.1 xenn=718) CHLORIDE (BEAKER) (test 120 meq/L 98-107 slhe=238) CO2 (BEAKER) (test 17 meq/L 22-29 ramd=896) BLOOD UREA NITROGEN 23 mg/dL 7-21 (BEAKER) (test yezl=982) CREATININE (BEAKER) (test 1.01 mg/dL 0.57-1.25 lmmu=647) GLUCOSE RANDOM (BEAKER) 102 mg/dL 70-105 (test mzuh=224) CALCIUM (BEAKER) (test 9.9 mg/dL 8.4-10.2 sjiy=601) EGFR (BEAKER) (test 74 mL/min/1.73 sq m ESTIMATED GFR IS NOT jwxj=4652) ACCURATE CREATININE CLEARANCE IN PREDICTING GLOMERULAR FILTRATION RATE. ESTIMATED GFR IS NOT APPLICABLE FOR DIALYSIS PATIENTS. Specimen slightly ictericPROTHROMBIN TIME/[id number] 05:52:00 Test Item Value Reference Range Comments PROTIME (BEAKER) (test vobu=935) 17.4 seconds 11.7-14.7 INR (BEAKER) (test fvnr=895) 1.4 <=5.9 RECOMMENDED COUMADIN/WARFARIN INR THERAPY RANGESSTANDARD DOSE: 2.0 - 3.0 Includes: PROPHYLAXIS forvenous thrombosis, systemic embolization; TREATMENT for venous thrombosis and/or pulmonary embolus.HIGH RISK: Target INR is 2.5-3.5 for patients with mechanical heart valves.[id number] 05:52:00 Test Item Value Reference Range Comments PARTIAL THROMBOPLASTIN TIME (BEAKER) (test 32.3 seconds 22.5-36.0 uetu=540) URINALYSIS W/ [id number] 00:07:00 Test Item Value Reference Range Comments COLOR (BEAKER) (test enwq=532) Yellow CLARITY (BEAKER) (test zfwg=786) Hazy SPECIFIC GRAVITY UA (BEAKER) (test luhi=100) 1.030 1.001-1.035 PH UA (BEAKER) (test ekco=127) 6.0 5.0-8.0 PROTEIN UA (BEAKER) (test boru=530) Negative Negative GLUCOSE UA (BEAKER) (test snte=050) Negative Negative KETONES UA (BEAKER) (test tneb=436) Negative Negative BILIRUBIN UA (BEAKER) (test muzf=027) Negative Negative BLOOD UA (BEAKER) (test ptdl=782) Small Negative NITRITE UA (BEAKER) (test ytrf=532) Negative Negative LEUKOCYTE ESTERASE UA (BEAKER) (test fioq=949) Trace Negative UROBILINOGEN UA (BEAKER) (test ksqg=764) 0.2 mg/dL 0.2-1.0 RBC UA (BEAKER) (test lqne=998) 1 /HPF WBC UA (BEAKER) (test gakt=346) 2 /HPF BACTERIA (BEAKER) (test zmqr=885) Rare SOURCE(BEAKER) (test qnai=6422) POCT-GLUCOSE [id number] 23:07:00 Test Item Value Reference Range Comments POC-GLUCOSE METER (BEAKER) 109 mg/dL 70-110 TESTED AT [address] (test gurj=5398) [facility] [address] RAD, CHEST, 1 VIEW, NON [id number] 21:27:00Reason for exam:->fever, tachypnea, high risk of [...] MDReport Verified Date/Time: 02/06/2018 21:27:48 Reading Location: [address] Body Reading Room POCT-GLUCOSE [id number] 17:40:00 Test Item Value Reference Range Comments POC-GLUCOSE METER (BEAKER) 108 mg/dL 70-110 TESTED AT [address] (test fidy=7212) [facility] [address] RAD, ABDOMEN/KUB, 1 VIEW [id number] 17:35:00Reason for exam:->check corpak placementFINAL REPORT AP abdomen HISTORY: Feeding tube COMPARISON: 02/04/2018 IMPRESSION:Feeding tube advanced, remaining along the greater curvature the stomach, not transpyloric. Signed:Christiano Burk MDReport Verified Date/Time: 02/06/2018 17:35:54 Reading Location: [facility] Reading Room Electronically signed by: CHRISTIANO BURK M.D. on 2017 05:35 PMPOCT-GLUCOSE [id number] 11:47:00 Test Item Value Reference Range Comments POC-GLUCOSE METER (BEAKER) 108 mg/dL 70-110 TESTED AT [address] (test ujow=8774) [place] [address] [id number] 06:20:00 Test Item Value Reference Range Comments PHOSPHORUS (BEAKER) (test zkeg=310) 3.2 mg/dL 2.3-4.7 [id number] 06:20:00 Test Item Value Reference Range Comments MAGNESIUM (BEAKER) (test zoxb=347) 1.9 mg/dL 1.6-2.6 BASIC METABOLIC [id number] 06:20:00 Test Item Value Reference Range Comments SODIUM (BEAKER) (test 143 meq/L 136-145 dpjt=465) POTASSIUM (BEAKER) (test 3.9 meq/L 3.5-5.1 jtaj=845) CHLORIDE (BEAKER) (test 114 meq/L 98-107 bjgv=036) CO2 (BEAKER) (test 20 meq/L 22-29 qgkh=003) BLOOD UREA NITROGEN 22 mg/dL 7-21 (BEAKER) (test bjms=404) CREATININE (BEAKER) (test 0.85 mg/dL 0.57-1.25 nkym=302) GLUCOSE RANDOM (BEAKER) 121 mg/dL 70-105 (test gymm=280) CALCIUM (BEAKER) (test 10.0 mg/dL 8.4-10.2 qrvb=213) EGFR (BEAKER) (test 90 mL/min/1.73 sq m ESTIMATED GFR IS NOT fwkd=8924) ACCURATE CREATININE CLEARANCE IN PREDICTING GLOMERULAR FILTRATION RATE. ESTIMATED GFR IS NOT APPLICABLE FOR DIALYSIS PATIENTS. POCT-GLUCOSE [id number] 06:18:00 Test Item Value Reference Range Comments POC-GLUCOSE METER (BEAKER) 117 mg/dL 70-110 TESTED AT [address] (test wnmh=4091) [place] [address] CBC W/PLT COUNT & AUTO [id number] 06:00:00 Test Item Value Reference Range Comments WHITE BLOOD CELL COUNT (BEAKER) (test upcn=205) 10.5 K/ L 3.5-10.5 RED BLOOD CELL COUNT (BEAKER) (test dnvm=992) 4.52 M/ L 4.63-6.08 HEMOGLOBIN (BEAKER) (test flld=171) 14.4 GM/DL 13.7-17.5 HEMATOCRIT (BEAKER) (test rmsq=569) 42.1 % 40.1-51.0 MEAN CORPUSCULAR VOLUME (BEAKER) (test ovmb=349) 93.1 fL 79.0-92.2 MEAN CORPUSCULAR HEMOGLOBIN (BEAKER) (test 31.9 pg 25.7-32.2 tdkt=729) MEAN CORPUSCULAR HEMOGLOBIN CONC (BEAKER) (test 34.2 GM/DL 32.3-36.5 hthc=136) RED CELL DISTRIBUTION WIDTH (BEAKER) (test 13.2 % 11.6-14.4 gxzu=957) PLATELET COUNT (BEAKER) (test eikq=239) 204 K/CU MM 150-450 MEAN PLATELET VOLUME (BEAKER) (test enyq=084) 10.7 fL 9.4-12.4 NUCLEATED RED BLOOD CELLS (BEAKER) (test 0 /100 WBC 0-0 bgor=088) NEUTROPHILS RELATIVE PERCENT (BEAKER) (test 77 % mgfi=154) LYMPHOCYTES RELATIVE PERCENT (BEAKER) (test 8 % oaqn=459) MONOCYTES RELATIVE PERCENT (BEAKER) (test 15 % egcn=527) EOSINOPHILS RELATIVE PERCENT (BEAKER) (test 0 % kzrx=239) BASOPHILS RELATIVE PERCENT (BEAKER) (test 0 % dbxp=970) NEUTROPHILS ABSOLUTE COUNT (BEAKER) (test 8.06 K/ L 1.78-5.38 eacw=285) LYMPHOCYTES ABSOLUTE COUNT (BEAKER) (test 0.83 K/ L 1.32-3.57 hjcj=168) MONOCYTES ABSOLUTE COUNT (BEAKER) (test 1.53 K/ L 0.30-0.82 hgrv=167) EOSINOPHILS ABSOLUTE COUNT (BEAKER) (test 0.00 K/ L 0.04-0.54 onef=728) BASOPHILS ABSOLUTE COUNT (BEAKER) (test 0.03 K/ L 0.01-0.08 yshw=850) IMMATURE GRANULOCYTES-RELATIVE PERCENT (BEAKER) 0 % 0-1 (test sqsu=9628) POCT-GLUCOSE [id number] 00:52:00 Test Item Value Reference Range Comments POC-GLUCOSE METER (BEAKER) 129 mg/dL 70-110 TESTED AT [address] (test fmkl=9438) [facility] [address] PROTHROMBIN [id number] 00:32:00 Test Item Value Reference Range Comments PROTIME (BEAKER) (test vvoq=724) 15.2 seconds 11.7-14.7 INR (BEAKER) (test wrkn=354) 1.2 <=5.9 RECOMMENDED COUMADIN/WARFARIN INR THERAPY RANGESSTANDARD DOSE: 2.0 - 3.0 Includes: PROPHYLAXIS forvenous thrombosis, systemic embolization; TREATMENT for venous thrombosis and/or pulmonary embolus.HIGH RISK: Target INR is 2.5-3.5 for patients with mechanical heart valves.POCT-GLUCOSE [id number] 00:25:00 Test Item Value Reference Range Comments POC-GLUCOSE METER (BEAKER) 113 mg/dL 70-110 TESTED AT [address] (test wsmu=6315) [place] [id number] POCT-GLUCOSE [id number] 18:42:00 Test Item Value Reference Range Comments POC-GLUCOSE METER (BEAKER) 131 mg/dL 70-110 TESTED AT [address] (test rpxe=5453) [place] [id number] BASIC METABOLIC [id number] 15:45:00 Test Item Value Reference Range Comments SODIUM (BEAKER) (test 143 meq/L 136-145 ltrf=760) POTASSIUM (BEAKER) (test 3.5 meq/L 3.5-5.1 kqrp=415) CHLORIDE (BEAKER) (test 114 meq/L 98-107 uore=544) CO2 (BEAKER) (test 17 meq/L 22-29 yhfq=422) BLOOD UREA NITROGEN 19 mg/dL 7-21 (BEAKER) (test uubm=568) CREATININE (BEAKER) (test 0.71 mg/dL 0.57-1.25 ymse=710) GLUCOSE RANDOM (BEAKER) 118 mg/dL 70-105 (test fgfz=396) CALCIUM (BEAKER) (test 9.4 mg/dL 8.4-10.2 qevk=674) EGFR (BEAKER) (test 111 mL/min/1.73 sq m ESTIMATED GFR IS NOT woxa=8738) ACCURATE CREATININE CLEARANCE IN PREDICTING GLOMERULAR FILTRATION RATE. ESTIMATED GFR IS NOT APPLICABLE FOR DIALYSIS PATIENTS. POCT-GLUCOSE [id number] 12:52:00 Test Item Value Reference Range Comments POC-GLUCOSE METER (BEAKER) 101 mg/dL 70-[address] [facility] [address] [facility] (test csbx=9701) [facility] [address] BASIC METABOLIC [id number] 11:57:00 Test Item Value Reference Range Comments SODIUM (BEAKER) (test 146 meq/L 136-145 This is a corrected aglk=445) result. Previous result was 141 meq/L on 02/05/2018 at 0751 CDT POTASSIUM (BEAKER) (test 3.5 meq/L 3.5-5.1 iidz=789) CHLORIDE (BEAKER) (test 115 meq/L 98-107 gspt=176) CO2 (BEAKER) (test 16 meq/L 22-29 aevc=752) BLOOD UREA NITROGEN 19 mg/dL 7-21 (BEAKER) (test guiw=593) CREATININE (BEAKER) (test 0.74 mg/dL 0.57-1.25 yebv=686) GLUCOSE RANDOM (BEAKER) 111 mg/dL 70-105 (test befq=507) CALCIUM (BEAKER) (test 9.1 mg/dL 8.4-10.2 rcmp=902) EGFR (BEAKER) (test 105 mL/min/1.73 sq m ESTIMATED GFR IS NOT ddnl=1498) ACCURATE CREATININE CLEARANCE IN PREDICTING GLOMERULAR FILTRATION RATE. ESTIMATED GFR IS NOT APPLICABLE FOR DIALYSIS PATIENTS. [id number] 07:51:00 Test Item Value Reference Range Comments PHOSPHORUS (BEAKER) (test lbkp=016) 2.9 mg/dL 2.3-4.7 [id number] 07:51:00 Test Item Value Reference Range Comments MAGNESIUM (BEAKER) (test jxlt=120) 2.1 mg/dL 1.6-2.6 POCT-GLUCOSE [id number] 05:53:00 Test Item Value Reference Range Comments POC-GLUCOSE METER (BEAKER) 114 mg/dL 70-[address] [facility] [address] (test enbl=2194) [place] [address] CBC W/PLT COUNT & AUTO [id number] 04:49:00 Test Item Value Reference Range Comments WHITE BLOOD CELL COUNT (BEAKER) (test cwtu=830) 7.3 K/ L 3.5-10.5 RED BLOOD CELL COUNT (BEAKER) (test aevt=917) 4.38 M/ L 4.63-6.08 HEMOGLOBIN (BEAKER) (test rczn=548) 14.2 GM/DL 13.7-17.5 HEMATOCRIT (BEAKER) (test aumf=048) 40.9 % 40.1-51.0 MEAN CORPUSCULAR VOLUME (BEAKER) (test ddni=607) 93.4 fL 79.0-92.2 MEAN CORPUSCULAR HEMOGLOBIN (BEAKER) (test 32.4 pg 25.7-32.2 fqhb=337) MEAN CORPUSCULAR HEMOGLOBIN CONC (BEAKER) (test 34.7 GM/DL 32.3-36.5 dvmg=594) RED CELL DISTRIBUTION WIDTH (BEAKER) (test 13.1 % 11.6-14.4 atzy=010) PLATELET COUNT (BEAKER) (test zkja=223) 161 K/CU MM 150-450 MEAN PLATELET VOLUME (BEAKER) (test ecie=830) 10.6 fL 9.4-12.4 NUCLEATED RED BLOOD CELLS (BEAKER) (test 0 /100 WBC 0-0 iobx=122) NEUTROPHILS RELATIVE PERCENT (BEAKER) (test 70 % mokt=826) LYMPHOCYTES RELATIVE PERCENT (BEAKER) (test 11 % kzii=606) MONOCYTES RELATIVE PERCENT (BEAKER) (test 18 % ufil=899) EOSINOPHILS RELATIVE PERCENT (BEAKER) (test 0 % pgfu=254) BASOPHILS RELATIVE PERCENT (BEAKER) (test 1 % fypr=710) NEUTROPHILS ABSOLUTE COUNT (BEAKER) (test 5.15 K/ L 1.78-5.38 rfej=664) LYMPHOCYTES ABSOLUTE COUNT (BEAKER) (test 0.79 K/ L 1.32-3.57 jngn=972) MONOCYTES ABSOLUTE COUNT (BEAKER) (test 1.31 K/ L 0.30-0.82 maez=398) EOSINOPHILS ABSOLUTE COUNT (BEAKER) (test 0.00 K/ L 0.04-0.54 dfis=766) BASOPHILS ABSOLUTE COUNT (BEAKER) (test 0.04 K/ L 0.01-0.08 euog=673) IMMATURE GRANULOCYTES-RELATIVE PERCENT (BEAKER) 1 % 0-1 (test zetj=3825) POCT-GLUCOSE [id number] 00:02:00 Test Item Value Reference Range Comments POC-GLUCOSE METER (BEAKER) 115 mg/dL 70-110 TESTED AT [address] (test ddux=0127) [place] [address] POCT-GLUCOSE [id number] 19:23:00 Test Item Value Reference Range Comments POC-GLUCOSE METER (BEAKER) 108 mg/dL 70-110 TESTED AT [address] (test xooi=3347) [place] [address] [id number] 18:25:00 Test Item Value Reference Range Comments MAGNESIUM (BEAKER) (test xchp=604) 1.9 mg/dL 1.6-2.6 Check Serum Phosphorus level 4 hours after IV phosphorus replacement or 8 hours after PO replacementcompleted.8 hours after PO replacement [id number] 18:25:00 Test Item Value Reference Range Comments PHOSPHORUS (BEAKER) (test bhmv=585) 2.7 mg/dL 2.3-4.7 Check Serum Phosphorus level 4 hours after IV phosphorus replacement or 8 hours after PO replacementcompleted.8 hours after PO replacement [id number] 18:25:00 Test Item Value Reference Range Comments POTASSIUM (BEAKER) (test vsho=018) 4.2 meq/L 3.5-5.1 Check Serum Phosphorus level 4 hours after IV phosphorus replacement or 8 hours after PO replacementcompleted.8 hours after PO replacement completedRAD, ABDOMEN /KUB, 1 VIEW [id number] 13:13:00Reason for exam:->corpak Should this be performed at the bedside?->YesFINAL REPORT AP abdomen HISTORY: Feeding tube COMPARISON: None IMPRESSION:Feeding tube present projecting within the stomach. Bowel gas pattern not well assessed but grossly nonobstructive. Signed: Christiano Burk MDReport Verified Date/Time: 2017 13:13:34 Reading Location: [facility] Women POCT-GLUCOSE [id number] 12:24:00 Test Item Value Reference Range Comments POC-GLUCOSE METER (BEAKER) 103 mg/dL 70-110 TESTED AT [place] [id number] [facility] (test nvyw=5861) [facility] [address] POCT-GLUCOSE [id number] 06:15:00 Test Item Value Reference Range Comments POC-GLUCOSE METER (BEAKER) 95 mg/dL 70-110 TESTED AT [address] (test kmfo=2979) [facility] [address] [id number] 03:37:00 Test Item Value Reference Range Comments PHOSPHORUS (BEAKER) (test rqeu=645) 2.2 mg/dL 2.3-4.7 [id number] 03:37:00 Test Item Value Reference Range Comments MAGNESIUM (BEAKER) (test nepr=147) 1.7 mg/dL 1.6-2.6 BASIC METABOLIC [id number] 03:37:00 Test Item Value Reference Range Comments SODIUM (BEAKER) (test 141 meq/L 136-145 javz=837) POTASSIUM (BEAKER) (test 3.8 meq/L 3.5-5.1 bvou=365) CHLORIDE (BEAKER) (test 113 meq/L 98-107 dked=503) CO2 (BEAKER) (test 17 meq/L 22-29 jgna=034) BLOOD UREA NITROGEN 16 mg/dL 7-21 (BEAKER) (test rbip=017) CREATININE (BEAKER) (test 0.80 mg/dL 0.57-1.25 ecwy=250) GLUCOSE RANDOM (BEAKER) 99 mg/dL 70-105 (test wavd=591) CALCIUM (BEAKER) (test 8.1 mg/dL 8.4-10.2 coqh=047) EGFR (BEAKER) (test 96 mL/min/1.73 sq m ESTIMATED GFR IS NOT wbur=5004) ACCURATE CREATININE CLEARANCE IN PREDICTING GLOMERULAR FILTRATION RATE. ESTIMATED GFR IS NOT APPLICABLE FOR DIALYSIS PATIENTS. CBC W/PLT COUNT & AUTO [id number] 03:36:00 Test Item Value Reference Range Comments WHITE BLOOD CELL COUNT (BEAKER) (test jpti=888) 7.1 K/ L 3.5-10.5 RED BLOOD CELL COUNT (BEAKER) (test rjce=939) 4.33 M/ L 4.63-6.08 HEMOGLOBIN (BEAKER) (test qebt=844) 13.6 GM/DL 13.7-17.5 HEMATOCRIT (BEAKER) (test tcra=327) 40.1 % 40.1-51.0 MEAN CORPUSCULAR VOLUME (BEAKER) (test ftok=510) 92.6 fL 79.0-92.2 MEAN CORPUSCULAR HEMOGLOBIN (BEAKER) (test 31.4 pg 25.7-32.2 ppfg=877) MEAN CORPUSCULAR HEMOGLOBIN CONC (BEAKER) (test 33.9 GM/DL 32.3-36.5 nxic=298) RED CELL DISTRIBUTION WIDTH (BEAKER) (test 12.8 % 11.6-14.4 king=408) PLATELET COUNT (BEAKER) (test eobw=180) 169 K/CU MM 150-450 MEAN PLATELET VOLUME (BEAKER) (test jljt=842) 10.4 fL 9.4-12.4 NUCLEATED RED BLOOD CELLS (BEAKER) (test 0 /100 WBC 0-0 ttsm=253) NEUTROPHILS RELATIVE PERCENT (BEAKER) (test 78 % ggqp=022) LYMPHOCYTES RELATIVE PERCENT (BEAKER) (test 9 % yzwr=982) MONOCYTES RELATIVE PERCENT (BEAKER) (test 13 % brgp=454) EOSINOPHILS RELATIVE PERCENT (BEAKER) (test 0 % lnls=838) BASOPHILS RELATIVE PERCENT (BEAKER) (test 0 % xups=062) NEUTROPHILS ABSOLUTE COUNT (BEAKER) (test 5.55 K/ L 1.78-5.38 tijn=888) LYMPHOCYTES ABSOLUTE COUNT (BEAKER) (test 0.61 K/ L 1.32-3.57 luen=228) MONOCYTES ABSOLUTE COUNT (BEAKER) (test 0.90 K/ L 0.30-0.82 rrkb=956) EOSINOPHILS ABSOLUTE COUNT (BEAKER) (test 0.00 K/ L 0.04-0.54 llah=516) BASOPHILS ABSOLUTE COUNT (BEAKER) (test 0.03 K/ L 0.01-0.08 qwkf=498) IMMATURE GRANULOCYTES-RELATIVE PERCENT (BEAKER) 0 % 0-1 (test xqij=8823) POCT-GLUCOSE [id number] 00:31:00 Test Item Value Reference Range Comments POC-GLUCOSE METER (BEAKER) 111 mg/dL 70-110 TESTED AT [place] [id number] [facility] (test zkcq=5094) [facility] [address] POCT-GLUCOSE [id number] 18:42:00 Test Item Value Reference Range Comments POC-GLUCOSE METER (BEAKER) 91 mg/dL 70-110 TESTED AT [place] [id number] [facility] (test apjb=8530) [facility] [address] POCT-GLUCOSE [id number] 15:25:00 Test Item Value Reference Range Comments POC-GLUCOSE METER (BEAKER) 92 mg/dL 70-110 TESTED AT [address] (test ofen=2885) [facility] [address] CT BRAIN WITHOUT IV CONTRAST - [id number] 13:09:00Reason for exam:-> follow up EVD removalFINAL [...] MDReport Verified Date/Time: 02/03/2018 13:09:24 Reading Location: [facility] C013 Neuro Reading Room Electronically signed by: SHANTE ROJAS M.D. on 2017 01:09 PMHEPATITIS PANEL, [id number] 06:20:00 Test Item Value Reference Range Comments HEPATITIS A IGM ANTIBODY (BEAKER) (test Nonreactive Nonreactive ybqi=934) HEPATITIS B CORE IGM ANTIBODY (BEAKER) (test Nonreactive Nonreactive brvo=318) HEPATITIS C ANTIBODY (BEAKER) (test lnbl=967) Reactive Nonreactive HEPATITIS B SURFACE ANTIGEN (2) (BEAKER) (test Nonreactive Nonreactive pyft=1230) [id number] 04:57:00 Test Item Value Reference Range Comments MAGNESIUM (BEAKER) (test kajl=546) 1.9 mg/dL 1.6-2.6 BASIC METABOLIC [id number] 04:57:00 Test Item Value Reference Range Comments SODIUM (BEAKER) (test 137 meq/L 136-145 rauc=255) POTASSIUM (BEAKER) (test 3.6 meq/L 3.5-5.1 thzi=494) CHLORIDE (BEAKER) (test 111 meq/L 98-107 onjc=997) CO2 (BEAKER) (test 18 meq/L 22-29 dyrh=888) BLOOD UREA NITROGEN 13 mg/dL 7-21 (BEAKER) (test pzzz=398) CREATININE (BEAKER) (test 0.82 mg/dL 0.57-1.25 nbvm=459) GLUCOSE RANDOM (BEAKER) 102 mg/dL 70-105 (test xulo=133) CALCIUM (BEAKER) (test 8.6 mg/dL 8.4-10.2 wlmd=489) EGFR (BEAKER) (test 94 mL/min/1.73 sq m ESTIMATED GFR IS NOT sqgi=1775) ACCURATE CREATININE CLEARANCE IN PREDICTING GLOMERULAR FILTRATION RATE. ESTIMATED GFR IS NOT APPLICABLE FOR DIALYSIS PATIENTS. HEPATIC FUNCTION [id number] 04:57:00 Test Item Value Reference Range Comments TOTAL PROTEIN (BEAKER) (test bolx=018) 6.1 gm/dL 6.0-8.3 ALBUMIN (BEAKER) (test dsex=2775) 3.6 g/dL 3.5-5.0 BILIRUBIN TOTAL (BEAKER) (test mmxs=145) 1.1 mg/dL 0.2-1.2 BILIRUBIN DIRECT (BEAKER) (test vopg=105) 0.5 mg/dL 0.1-0.5 ALKALINE PHOSPHATASE (BEAKER) (test uvsw=230) 42 U/L 40-150 AST (SGOT) (BEAKER) (test zlwu=692) 29 U/L 5-34 ALT (SGPT) (BEAKER) (test reyb=863) 16 U/L 6-55 [id number] 04:56:00 Test Item Value Reference Range Comments PHOSPHORUS (BEAKER) (test jlhw=610) 1.7 mg/dL 2.3-4.7 CBC W/PLT COUNT & AUTO [id number] 03:59:00 Test Item Value Reference Range Comments WHITE BLOOD CELL COUNT (BEAKER) (test oonn=047) 9.4 K/ L 3.5-10.5 RED BLOOD CELL COUNT (BEAKER) (test kvhp=858) 4.29 M/ L 4.63-6.08 HEMOGLOBIN (BEAKER) (test uujb=724) 13.7 GM/DL 13.7-17.5 HEMATOCRIT (BEAKER) (test psna=573) 40.8 % 40.1-51.0 MEAN CORPUSCULAR VOLUME (BEAKER) (test hmll=615) 95.1 fL 79.0-92.2 MEAN CORPUSCULAR HEMOGLOBIN (BEAKER) (test 31.9 pg 25.7-32.2 dtyj=261) MEAN CORPUSCULAR HEMOGLOBIN CONC (BEAKER) (test 33.6 GM/DL 32.3-36.5 vjvo=819) RED CELL DISTRIBUTION WIDTH (BEAKER) (test 14.0 % 11.6-14.4 moag=717) PLATELET COUNT (BEAKER) (test bmez=972) 208 K/CU MM 150-450 MEAN PLATELET VOLUME (BEAKER) (test idks=616) 12.2 fL 9.4-12.4 NUCLEATED RED BLOOD CELLS (BEAKER) (test 0 /100 WBC 0-0 nnce=910) NEUTROPHILS RELATIVE PERCENT (BEAKER) (test 78 % ftoi=977) LYMPHOCYTES RELATIVE PERCENT (BEAKER) (test 9 % bcsy=083) MONOCYTES RELATIVE PERCENT (BEAKER) (test 12 % mbcx=493) EOSINOPHILS RELATIVE PERCENT (BEAKER) (test 0 % jgvs=044) BASOPHILS RELATIVE PERCENT (BEAKER) (test 0 % aouz=847) NEUTROPHILS ABSOLUTE COUNT (BEAKER) (test 7.31 K/ L 1.78-5.38 ufxi=233) LYMPHOCYTES ABSOLUTE COUNT (BEAKER) (test 0.85 K/ L 1.32-3.57 motn=659) MONOCYTES ABSOLUTE COUNT (BEAKER) (test 1.14 K/ L 0.30-0.82 bbrs=199) EOSINOPHILS ABSOLUTE COUNT (BEAKER) (test 0.00 K/ L 0.04-0.54 vcyv=029) BASOPHILS ABSOLUTE COUNT (BEAKER) (test 0.02 K/ L 0.01-0.08 zbpf=963) IMMATURE GRANULOCYTES-RELATIVE PERCENT (BEAKER) 0 % 0-1 (test cfhm=6195) POCT-GLUCOSE [id number] 01:18:00 Test Item Value Reference Range Comments POC-GLUCOSE METER (BEAKER) 103 mg/dL 70-110 TESTED AT [address] (test jleb=4207) [place] [address] POCT-GLUCOSE [id number] 19:16:00 Test Item Value Reference Range Comments POC-GLUCOSE METER (BEAKER) 114 mg/dL 70-110 TESTED AT [address] (test kyvv=2156) [place] [address] POCT-GLUCOSE [id number] 13:29:00 Test Item Value Reference Range Comments POC-GLUCOSE METER (BEAKER) 107 mg/dL 70-110 TESTED AT [address] (test zsdx=7600) [place] [address] SPUTUM CULTURE + GRAM [id number] 10:09:00 Test Item Value Reference Range Comments CULTURE (BEAKER) (test 1+ Normal respiratory carla zyko=7802) present GRAM STAIN RESULT (BEAKER) 1+ WBCs (test afvr=3031) GRAM STAIN RESULT (BEAKER) 2+ gram positive cocci in pairs (test odhl=92032) GRAM STAIN RESULT (BEAKER) 2+ gram positive cocci in chains (test vxut=19001) GRAM STAIN RESULT (BEAKER) 0-5 epithelial cells (test aubs=814267) CBC W/PLT COUNT & AUTO [id number] 06:44:00 Test Item Value Reference Range Comments WHITE BLOOD CELL COUNT (BEAKER) (test ztvf=533) 10.0 K/ L 3.5-10.5 RED BLOOD CELL COUNT (BEAKER) (test fwdn=193) 4.09 M/ L 4.63-6.08 HEMOGLOBIN (BEAKER) (test nhfx=016) 13.1 GM/DL 13.7-17.5 HEMATOCRIT (BEAKER) (test ljvo=005) 39.5 % 40.1-51.0 MEAN CORPUSCULAR VOLUME (BEAKER) (test vwjd=058) 96.6 fL 79.0-92.2 MEAN CORPUSCULAR HEMOGLOBIN (BEAKER) (test 32.0 pg 25.7-32.2 xlzb=932) MEAN CORPUSCULAR HEMOGLOBIN CONC (BEAKER) (test 33.2 GM/DL 32.3-36.5 ikxb=882) RED CELL DISTRIBUTION WIDTH (BEAKER) (test 14.0 % 11.6-14.4 askh=690) PLATELET COUNT (BEAKER) (test fdaw=518) 166 K/CU MM 150-450 MEAN PLATELET VOLUME (BEAKER) (test ctxt=655) 10.7 fL 9.4-12.4 NUCLEATED RED BLOOD CELLS (BEAKER) (test 0 /100 WBC 0-0 bchp=085) NEUTROPHILS RELATIVE PERCENT (BEAKER) (test 85 % varc=238) LYMPHOCYTES RELATIVE PERCENT (BEAKER) (test 5 % tchv=547) MONOCYTES RELATIVE PERCENT (BEAKER) (test 10 % ymkv=388) EOSINOPHILS RELATIVE PERCENT (BEAKER) (test 0 % ownp=468) BASOPHILS RELATIVE PERCENT (BEAKER) (test 0 % emru=058) NEUTROPHILS ABSOLUTE COUNT (BEAKER) (test 8.48 K/ L 1.78-5.38 elit=704) LYMPHOCYTES ABSOLUTE COUNT (BEAKER) (test 0.52 K/ L 1.32-3.57 liwv=771) MONOCYTES ABSOLUTE COUNT (BEAKER) (test 0.97 K/ L 0.30-0.82 gcmd=448) EOSINOPHILS ABSOLUTE COUNT (BEAKER) (test 0.00 K/ L 0.04-0.54 aiii=367) BASOPHILS ABSOLUTE COUNT (BEAKER) (test 0.02 K/ L 0.01-0.08 yxrq=413) IMMATURE GRANULOCYTES-RELATIVE PERCENT (BEAKER) 0 % 0-1 (test dijq=0957) POCT-GLUCOSE [id number] 06:25:00 Test Item Value Reference Range Comments POC-GLUCOSE METER (BEAKER) 115 mg/dL 70-[address] [facility] [address] (test brzj=5564) [facility] [address] BLOOD GAS, [id number] 06:22:00 Test Item Value Reference Range Comments PH ARTERIAL (BEAKER) (test lupz=443) 7.49 7.35-7.45 PCO2 ARTERIAL (BEAKER) (test qyex=294) 25 mmHg 35-45 PO2 ARTERIAL (BEAKER) (test iktq=127) 68 mmHg 80-90 O2 SATURATION ARTERIAL (BEAKER) (test tklh=826) 94.9 % 96.0-97.0 HCO3 ARTERIAL (BEAKER) (test jivo=989) 18 mmol/L 21-29 BASE EXCESS ARTERIAL (BEAKER) (test kefk=295) -3.3 mmol/L -2.0-3.0 PATIENT TEMPERATURE (BEAKER) (test ttkb=8712) 37.3 C FIO2 (BEAKER) (test afyy=9977) 21.0 % [id number] 05:44:00 Test Item Value Reference Range Comments PHOSPHORUS (BEAKER) (test qweu=154) 1.7 mg/dL 2.3-4.7 [id number] 05:44:00 Test Item Value Reference Range Comments MAGNESIUM (BEAKER) (test tvgc=792) 1.9 mg/dL 1.6-2.6 BASIC METABOLIC [id number] 05:44:00 Test Item Value Reference Range Comments SODIUM (BEAKER) (test 138 meq/L 136-145 lhkw=830) POTASSIUM (BEAKER) (test 3.6 meq/L 3.5-5.1 qndj=535) CHLORIDE (BEAKER) (test 107 meq/L 98-107 ghkr=186) CO2 (BEAKER) (test 22 meq/L 22-29 ejcd=530) BLOOD UREA NITROGEN 9 mg/dL 7-21 (BEAKER) (test ntbe=868) CREATININE (BEAKER) (test 0.89 mg/dL 0.57-1.25 sayn=038) GLUCOSE RANDOM (BEAKER) 106 mg/dL 70-105 (test tniw=583) CALCIUM (BEAKER) (test 8.9 mg/dL 8.4-10.2 aaul=621) EGFR (BEAKER) (test 85 mL/min/1.73 sq m ESTIMATED GFR IS NOT kvff=0266) ACCURATE CREATININE CLEARANCE IN PREDICTING GLOMERULAR FILTRATION RATE. ESTIMATED GFR IS NOT APPLICABLE FOR DIALYSIS PATIENTS. POCT-GLUCOSE [id number] 00:49:00 Test Item Value Reference Range Comments POC-GLUCOSE METER (BEAKER) 124 mg/dL 70-110 TESTED AT [address] (test nszb=8661) [place] [id number] POCT-GLUCOSE [id number] 18:34:00 Test Item Value Reference Range Comments POC-GLUCOSE METER (BEAKER) 144 mg/dL 70-110 TESTED AT [address] (test zdnb=4019) [place] [id number] POCT-GLUCOSE [id number] 12:39:00 Test Item Value Reference Range Comments POC-GLUCOSE METER (BEAKER) 124 mg/dL 70-110 TESTED AT [address] (test nkkc=6033) [facility] [address] BLOOD GAS, [id number] 11:19:00 Test Item Value Reference Range Comments PH ARTERIAL (BEAKER) (test jvwo=483) 7.45 7.35-7.45 PCO2 ARTERIAL (BEAKER) (test lywn=761) 32 mmHg 35-45 PO2 ARTERIAL (BEAKER) (test idpg=895) 98 mmHg 80-90 O2 SATURATION ARTERIAL (BEAKER) (test ooto=509) 97.6 % 96.0-97.0 HCO3 ARTERIAL (BEAKER) (test fbub=211) 21 mmol/L 21-29 BASE EXCESS ARTERIAL (BEAKER) (test nxma=542) -1.5 mmol/L -2.0-3.0 PATIENT TEMPERATURE (BEAKER) (test dtyw=0156) 37.5 C FIO2 (BEAKER) (test aupb=7889) 32.0 % CT BRAIN WITHOUT IV CONTRAST - [id number] 09:26:00Reason for exam:-> ICH with IVHFINAL REPORT [...] Velezort Verified Date/Time: 02/01/2018 09:26:57 Reading Location: [address] Neuro Reading Room HEMOGLOBIN [id number] 08:20:00 Test Item Value Reference Range Comments HEMOGLOBIN A1C (ROMA) (test icuo=817) 6.1 % 4.3-6.1 RAD, CHEST, 1 VIEW, NON [id number] 07:38:00Reason for exam:-> intubationShould this be performed [...] Verified Date/Time : 02/01/2018 07:38:36 Reading Location: [address] Neuro Reading Room POCT- GLUCOSE [id number] 06:57:00 Test Item Value Reference Range Comments POC-GLUCOSE METER (BEAKER) 123 mg/dL 70-[address] [facility] [address] (test ijlz=1651) [place] [address] BLOOD GAS, [id number] 04:33:00 Test Item Value Reference Range Comments PH ARTERIAL (BEAKER) (test jtzq=852) 7.39 7.35-7.45 PCO2 ARTERIAL (BEAKER) (test qccq=490) 39 mmHg 35-45 PO2 ARTERIAL (BEAKER) (test sbrs=910) 262 mmHg 80-90 O2 SATURATION ARTERIAL (BEAKER) (test nysy=436) 99.6 % 96.0-97.0 HCO3 ARTERIAL (BEAKER) (test dbjp=133) 23 mmol/L 21-29 BASE EXCESS ARTERIAL (BEAKER) (test vopm=166) -1.4 mmol/L -2.0-3.0 PATIENT TEMPERATURE (BEAKER) (test jryh=6037) 37.1 C FIO2 (BEAKER) (test rsuy=2820) 60.0 % [id number] 04:18:00 Test Item Value Reference Range Comments PHOSPHORUS (BEAKER) (test pebr=796) 3.4 mg/dL 2.3-4.7 [id number] 04:18:00 Test Item Value Reference Range Comments MAGNESIUM (BEAKER) (test ceby=675) 1.2 mg/dL 1.6-2.6 BASIC METABOLIC [id number] 04:18:00 Test Item Value Reference Range Comments SODIUM (BEAKER) (test 138 meq/L 136-145 dsuq=484) POTASSIUM (BEAKER) (test 4.1 meq/L 3.5-5.1 cabv=793) CHLORIDE (BEAKER) (test 109 meq/L 98-107 cyrf=299) CO2 (BEAKER) (test 22 meq/L 22-29 chdy=858) BLOOD UREA NITROGEN 10 mg/dL 7-21 (BEAKER) (test hsxk=342) CREATININE (BEAKER) (test 0.81 mg/dL 0.57-1.25 eqke=773) GLUCOSE RANDOM (BEAKER) 124 mg/dL 70-105 (test lmbg=797) CALCIUM (BEAKER) (test 8.4 mg/dL 8.4-10.2 yfmh=625) EGFR (BEAKER) (test 95 mL/min/1.73 sq m ESTIMATED GFR IS NOT ndtw=4824) ACCURATE CREATININE CLEARANCE IN PREDICTING GLOMERULAR FILTRATION RATE. ESTIMATED GFR IS NOT APPLICABLE FOR DIALYSIS PATIENTS. CBC W/PLT COUNT & AUTO [id number] 04:06:00 Test Item Value Reference Range Comments WHITE BLOOD CELL COUNT (BEAKER) (test cxmb=411) 7.6 K/ L 3.5-10.5 RED BLOOD CELL COUNT (BEAKER) (test meqj=756) 4.05 M/ L 4.63-6.08 HEMOGLOBIN (BEAKER) (test kgnl=763) 13.0 GM/DL 13.7-17.5 HEMATOCRIT (BEAKER) (test ttzb=628) 38.6 % 40.1-51.0 MEAN CORPUSCULAR VOLUME (BEAKER) (test dljj=815) 95.3 fL 79.0-92.2 MEAN CORPUSCULAR HEMOGLOBIN (BEAKER) (test 32.1 pg 25.7-32.2 hfrd=395) MEAN CORPUSCULAR HEMOGLOBIN CONC (BEAKER) (test 33.7 GM/DL 32.3-36.5 tmil=902) RED CELL DISTRIBUTION WIDTH (BEAKER) (test 13.6 % 11.6-14.4 hrdx=246) PLATELET COUNT (BEAKER) (test yxme=041) 186 K/CU MM 150-450 MEAN PLATELET VOLUME (BEAKER) (test hltb=275) 10.2 fL 9.4-12.4 NUCLEATED RED BLOOD CELLS (BEAKER) (test 0 /100 WBC 0-0 emjk=061) NEUTROPHILS RELATIVE PERCENT (BEAKER) (test 80 % rzaa=926) LYMPHOCYTES RELATIVE PERCENT (BEAKER) (test 10 % gplv=695) MONOCYTES RELATIVE PERCENT (BEAKER) (test 10 % bjzv=714) EOSINOPHILS RELATIVE PERCENT (BEAKER) (test 0 % krud=378) BASOPHILS RELATIVE PERCENT (BEAKER) (test 0 % qcye=977) NEUTROPHILS ABSOLUTE COUNT (BEAKER) (test 6.04 K/ L 1.78-5.38 ajbt=623) LYMPHOCYTES ABSOLUTE COUNT (BEAKER) (test 0.72 K/ L 1.32-3.57 uxzx=067) MONOCYTES ABSOLUTE COUNT (BEAKER) (test 0.76 K/ L 0.30-0.82 tjqa=109) EOSINOPHILS ABSOLUTE COUNT (BEAKER) (test 0.00 K/ L 0.04-0.54 dmza=240) BASOPHILS ABSOLUTE COUNT (BEAKER) (test 0.02 K/ L 0.01-0.08 pxzr=951) IMMATURE GRANULOCYTES-RELATIVE PERCENT (BEAKER) 0 % 0-1 (test acjl=5465) [id number] 02:07:00 Test Item Value Reference Range Comments RPR SCREEN (BEAKER) (test kyza=932) Nonreactive Nonreactive HEPATIC FUNCTION [id number] 22:17:00 Test Item Value Reference Range Comments TOTAL PROTEIN (BEAKER) (test nmmh=652) 6.4 gm/dL 6.0-8.3 ALBUMIN (BEAKER) (test tcxm=1970) 4.2 g/dL 3.5-5.0 BILIRUBIN TOTAL (BEAKER) (test yghp=281) 0.8 mg/dL 0.2-1.2 BILIRUBIN DIRECT (BEAKER) (test xfat=433) 0.4 mg/dL 0.1-0.5 ALKALINE PHOSPHATASE (BEAKER) (test yrnm=236) 52 U/L 40-150 AST (SGOT) (BEAKER) (test kwhf=952) 27 U/L 5-34 ALT (SGPT) (BEAKER) (test fcxp=117) 19 U/L 6-55 CT, CTANGIO [id number] 21:00:00FINAL REPORT CTA carotids and brain 01/31/2018 [...] Velez Verified Date/Time: 01/31/2018 21:00:54 Reading Location: [facility] [address] Radiology Reading Room CT, CAROTID, [id number] 21:00:00FINAL REPORT CTA carotids and brain 01/31/2018 [...] MDReport Verified Date/Time: 01/31/2018 21:00:54 Reading Location: [facility] [address] Radiology Reading Room TSH/FREE T4 IF [id number] 20:05:00 Test Item Value Reference Range Comments THYROID STIMULATING HORMONE (BEAKER) (test 2.07 uIU/mL 0.35-4.94 kigk=826) VITAMIN B12 AND [id number] 20:05:00 Test Item Value Reference Range Comments VITAMIN B12 (BEAKER) (test eruy=824) 340 pg/mL 213-816 FOLATE (BEAKER) (test xbgz=213) 11.0 ng/mL >=7.0 PROTHROMBIN TIME/[id number] 19:56:00 Test Item Value Reference Range Comments PROTIME (BEAKER) (test pzag=191) 14.1 seconds 11.7-14.7 INR (BEAKER) (test mgdq=934) 1.1 <=5.9 RECOMMENDED COUMADIN/WARFARIN INR THERAPY RANGESSTANDARD DOSE: 2.0 - 3.0 Includes: PROPHYLAXIS forvenous thrombosis, systemic embolization; TREATMENT for venous thrombosis and/or pulmonary embolus.HIGH RISK: Target INR is 2.5-3.5 for patients with mechanical heart valves.[id number] 19:56:00 Test Item Value Reference Range Comments PARTIAL THROMBOPLASTIN TIME (BEAKER) (test 31.5 seconds 22.5-36.0 nadh=504) CBC W/PLT COUNT & AUTO [id number] 19:45:00 Test Item Value Reference Range Comments WHITE BLOOD CELL COUNT (BEAKER) (test nxeg=626) 10.6 K/ L 3.5-10.5 RED BLOOD CELL COUNT (BEAKER) (test jgol=228) 5.29 M/ L 4.63-6.08 HEMOGLOBIN (BEAKER) (test fmkz=040) 17.1 GM/DL 13.7-17.5 HEMATOCRIT (BEAKER) (test ewzq=055) 50.0 % 40.1-51.0 MEAN CORPUSCULAR VOLUME (BEAKER) (test zxud=845) 94.5 fL 79.0-92.2 MEAN CORPUSCULAR HEMOGLOBIN (BEAKER) (test 32.3 pg 25.7-32.2 ignb=476) MEAN CORPUSCULAR HEMOGLOBIN CONC (BEAKER) (test 34.2 GM/DL 32.3-36.5 dzjw=945) RED CELL DISTRIBUTION WIDTH (BEAKER) (test 13.3 % 11.6-14.4 xifg=803) PLATELET COUNT (BEAKER) (test zcyg=210) 83 K/CU MM 150-450 MEAN PLATELET VOLUME (BEAKER) (test thkz=861) 11.9 fL 9.4-12.4 NUCLEATED RED BLOOD CELLS (BEAKER) (test 0 /100 WBC 0-0 abmi=800) NEUTROPHILS RELATIVE PERCENT (BEAKER) (test 79 % wbrf=329) LYMPHOCYTES RELATIVE PERCENT (BEAKER) (test 13 % oewm=907) MONOCYTES RELATIVE PERCENT (BEAKER) (test 8 % zfwh=267) EOSINOPHILS RELATIVE PERCENT (BEAKER) (test 0 % gdak=423) BASOPHILS RELATIVE PERCENT (BEAKER) (test 0 % oqfp=973) NEUTROPHILS ABSOLUTE COUNT (BEAKER) (test 8.32 K/ L 1.78-5.38 gmkb=084) LYMPHOCYTES ABSOLUTE COUNT (BEAKER) (test 1.38 K/ L 1.32-3.57 arcs=285) MONOCYTES ABSOLUTE COUNT (BEAKER) (test nler=489) 0.83 K/ L 0.30-0.82 EOSINOPHILS ABSOLUTE COUNT (BEAKER) (test 0.00 K/ L 0.04-0.54 favz=421) BASOPHILS ABSOLUTE COUNT (BEAKER) (test shaj=952) 0.04 K/ L 0.01-0.08 IMMATURE GRANULOCYTES-RELATIVE PERCENT (BEAKER) 0 % 0-1 (test cudy=7309) COMPREHENSIVE METABOLIC [id number] 19:30:00 Test Item Value Reference Range Comments TOTAL PROTEIN (BEAKER) 6.6 gm/dL 6.0-8.3 Specimen slightly (test rgvy=013) hemolyzed ALBUMIN (BEAKER) (test 4.3 g/dL 3.5-5.0 Specimen slightly ubfj=5428) hemolyzed ALKALINE PHOSPHATASE 58 U/L 40-150 (BEAKER) (test ntpw=843) BILIRUBIN TOTAL (BEAKER) 1.1 mg/dL 0.2-1.2 Specimen slightly (test hqhf=274) hemolyzed SODIUM (BEAKER) (test 138 meq/L 136-145 ryhf=526) POTASSIUM (BEAKER) (test 3.3 meq/L 3.5-5.1 Specimen slightly ounf=797) hemolyzed CHLORIDE (BEAKER) (test 106 meq/L 98-107 ygyk=476) CO2 (BEAKER) (test 18 meq/L 22-29 wgcp=933) BLOOD UREA NITROGEN 12 mg/dL 7-21 (BEAKER) (test iziq=926) CREATININE (BEAKER) (test 0.85 mg/dL 0.57-1.25 Specimen slightly mebf=779) hemolyzed GLUCOSE RANDOM (BEAKER) 131 mg/dL 70-105 (test urop=178) CALCIUM (BEAKER) (test 9.1 mg/dL 8.4-10.2 ahyx=996) AST (SGOT) (BEAKER) (test 35 U/L 5-34 Specimen slightly asvt=083) hemolyzed ALT (SGPT) (BEAKER) (test 21 U/L 6-55 Specimen slightly ctha=948) hemolyzed EGFR (BEAKER) (test 90 mL/min/1.73 sq m ESTIMATED GFR IS NOT fapt=9650) ACCURATE CREATININE CLEARANCE IN PREDICTING GLOMERULAR FILTRATION RATE. ESTIMATED GFR IS NOT APPLICABLE FOR DIALYSIS PATIENTS. [id number] 19:30:00 Test Item Value Reference Range Comments MAGNESIUM (BEAKER) (test 1.6 mg/dL 1.6-2.6 Specimen slightly hemolyzed qvzc=233) LIPID [id number] 19:30:00 Test Item Value Reference Range Comments TRIGLYCERIDES (BEAKER) (test 85 mg/dL Specimen slightly hemolyzed pxpb=180) CHOLESTEROL (BEAKER) (test 174 mg/dL Specimen slightly hemolyzed iqxh=768) HDL CHOLESTEROL (BEAKER) (test 56 mg/dL kbnc=790) LDL CHOLESTEROL CALCULATED 101 mg/dL (BEAKER) (test dwya=811) Triglyceride Reference Range: Low Risk <150 Borderline 150- 199 High Risk 200-499 Very High Risk >=500Cholesterol Reference Range: Low Risk <200 Borderline 200-239 High Risk > 240HDL Cholesterol Reference Range: Low Risk >=60 High Risk <40LDL Cholesterol Reference Range: Optimal <100 Near Optimal 100-129 Borderline 130-159 High 160-189 Very High >=190BLOOD GAS, [id number] 19:28:00 Test Item Value Reference Range Comments PH ARTERIAL (BEAKER) (test xvfb=094) 7.42 7.35-7.45 PCO2 ARTERIAL (BEAKER) (test bujj=850) 33 mmHg 35-45 PO2 ARTERIAL (BEAKER) (test cqyk=083) 183 mmHg 80-90 O2 SATURATION ARTERIAL (BEAKER) (test plwe=133) 99.3 % 96.0-97.0 HCO3 ARTERIAL (BEAKER) (test nmym=552) 21 mmol/L 21-29 BASE EXCESS ARTERIAL (BEAKER) (test gpsn=168) -2.4 mmol/L -2.0-3.0 PATIENT TEMPERATURE (BEAKER) (test juvi=8582) 37.0 C RAD, CHEST, 1 VIEW, NON [id number] 17:49:00Post-intubationReason for exam:-& gt;post intubationShould this be [...] Xavierort Verified Date/Time: 01/31/2018 17:49:49 Reading Location: [facility] B1 C013W Consult Reading Room
[2018-03-04] MEDS ORDERED: DIAZEPAM 5 MG TABLET ONE (17:10)
[2018-03-04] MEDS ORDERED: QUETIAPINE 25 MG TAB PO ONE (19:00)
--- NOTE | 2018-03-04 21:00 | ER ---
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 Family currently trying to get power of family law attorney, pt seen here 3 days ago for similar complaint and discharged home. Transition of care: patient was not received from another setting of care. Onset of symptoms was March 04, 2018. Care prior to arrival: None. 15:31 Method Of Arrival: EMS: [facility] ph 15:31 Acuity: KIRK 2 ph Historical: - Allergies: 15:35 NKA; rb1 - Home Meds: 15:35 Acetaminophen Oral [Active]; amlodipine oral [Active]; atorvastatin Oral [Active]; rb1 Docusate Sodium Oral [Active]; Famotidine Oral [Active]; Metoprolol Tartrate Oral [Active]; Miralax Oral [Active]; sertraline Oral [Active]; Trazodone Oral [Active]; - PMHx: 15:35 CVA; Cognitive, behavioral deficits; Hypertension; rb1 - Immunization history:: Adult Immunizations up to date. - Family history:: not pertinent. - Social history:: Smoking status: unknown. - Hospitalizations: : No recent hospitalization is reported. Screenin:35 Abuse screen: Denies threats or abuse. Nutritional screening: No deficits noted. rb1 Tuberculosis screening: No symptoms or risk factors identified. Fall Risk None identified. Assessment: 15:35 General: Appears comfortable, Behavior is agitated. Pain: Denies pain. Neuro: Level of rb1 Consciousness is awake, confused, A \\T\\ O x 1. 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 Gait is steady, Speech is normal, Facial symmetry appears normal, Pupils are PERRLA. Cardiovascular: Capillary refill < 3 seconds is brisk in bilateral fingers. Respiratory: Airway is patent Respiratory effort is even, unlabored, Respiratory pattern is regular, symmetrical. GI: No signs and/or symptoms were reported involving the gastrointestinal system. : No signs and/or symptoms were reported regarding the genitourinary system. Derm: Skin is pink, warm \\T\\ dry. Musculoskeletal: Range of motion: intact in all extremities. 16:30 Reassessment: Patient appears in no apparent distress at this time. No changes from rb1 previously documented assessment. 17:14 Reassessment: Patient appears in no apparent distress at this time. Patient and/or rb1 family updated on plan of care and expected duration. Pain level reassessed. Patient is alert, oriented x 3, equal unlabored respirations, skin warm/dry/pink. Patient denies pain at this time. 18:00 Reassessment: I spoke with the pt. about going home with his daughter and he refuses to rb1 go home with his daughter, son-in-law, sister, or father. He stated, "I absolutely will not go home with them. I want to stay at a place of my own." Provider notified. Family updated on POC. 18:42 Reassessment: Faxed Seroquel to pharmacy. rb1 20:16 Reassessment: Patient appears in no apparent distress at this time. No changes from jd3 previously documented assessment. Patient and/or family updated on plan of care and expected duration. Pain level reassessed. pt, family and provider discussing plan of care. Patient denies pain at this time. 22:34 Reassessment: Patient appears in no apparent distress at this time. Patient and/or jd3 family updated on plan of care and expected duration. Pain level reassessed. pt reported understanding on need for admission Patient denies pain at this time. Vital Signs: 15:38 BP 121 / 66; Pulse 67; Resp 18; Temp 97.9; Pulse Ox 99% on R/A; ph 16:30 BP 127 / 72; Pulse 63; Resp 19; Pulse Ox 100% on R/A; rb1 17:30 rb1 18:42 BP 102 / 68; Pulse 64; Resp 17; Pulse Ox 98% on R/A; rb1 20:15 BP 140 / 69; Pulse 64; Resp 17 S; Pulse Ox 100% on R/A; Pain 0/10; jd3 17:30 pt. refused vital signs at this time. rb1 ED Course: 15:31 Patient arrived in ED. ph 15:35 Patient has correct armband on for positive identification. Bed in low position. Call rb1 light in reach. Side rails up X 1. Pulse ox on. NIBP on. 15:35 Arm band placed on right wrist. rb1 15:38 Triage completed. ph 15:48 Carlyle Kingston MD is Attending Physician. rn 16:29 Lindsey Aguilera, AUNDREA is Primary Nurse. rb1 19:00 Report given to AUNDREA Rios. rb1 20:59 Janis Redding MD is Hospitalizing Provider. rn 22:32 No provider procedures requiring assistance completed. Patient admitted, IV remains in jd3 place. Administered Medications: 17:14 Drug: Valium 5 mg Route: PO; rb1 17:45 Follow up: Response: No adverse reaction rb1 19:11 Drug: SEROquel 25 mg Route: PO; rb1 22:42 Follow up: Response: No adverse reaction jd3 Outcome: 20:59 Decision to Hospitalize by Provider. rn 22:34 Condition: stable jd3 22:34 Instructed on the need for admit, Demonstrated understanding of instructions. 22:42 Admitted to Med/surg accompanied by tech, via wheelchair, room 231, with chart, Report jd3 called to Roberta GUILLAUME 22:43 Patient left the ED. jd3 Signatures: Carlyle Kingston MD MD rn Hall, Patricia, RN RN Lindsey Aguilera RN RN [facility] Jim Oliver RN RN jd3 Corrections: (The following items were deleted from the chart) 22:35 20:16 Reassessment: Patient appears in no apparent distress at this time. No changes jd3 from previously documented assessment. Patient and/or family updated on plan of care and expected duration. Pain level reassessed. pt, family and provider discussing plan of care. Patient denies pain at this time. jd3
--- NOTE | 2018-03-04 21:00 | EDPHYS ---
Physician Documentation [facility] Name: Edmund Caballero Age: 67 yrs Sex: Male : 1950 Arrival Date: 03/04/2018 Time: 15:31 Bed 15 Private MD: ED Physician Carlyle Kingston HPI: 03/04 18:20 This 67 yrs old Male presents to ER via EMS with complaints of Altered Mental rn Status. 18:20 The patient presents with agitation. Onset: The symptoms/episode began/occurred today. rn Current symptoms: In the emergency department the patient's symptoms have improved. The patient has experienced similar episodes in the past. + recent hemorrhagic CVA, since then has been having bouts of agitation, nothing new, no fever/cough/chest pain/abd pain. No trauma. Seen here 2 days ago with nothing new found. Has 10/06 caregiver and family concerned he might overpower her. . Historical: - Allergies: 15:35 NKA; rb1 - Home Meds: 15:35 Acetaminophen Oral [Active]; amlodipine oral [Active]; atorvastatin Oral [Active]; rb1 Docusate Sodium Oral [Active]; Famotidine Oral [Active]; Metoprolol Tartrate Oral [Active]; Miralax Oral [Active]; sertraline Oral [Active]; Trazodone Oral [Active]; - PMHx: 15:35 CVA; Cognitive, behavioral deficits; Hypertension; rb1 - Immunization history:: Adult Immunizations up to date. - Family history:: not pertinent. - Social history:: Smoking status: unknown. - Hospitalizations: : No recent hospitalization is reported. ROS: 18:20 Constitutional: Negative for fever, chills, and weight loss, Eyes: Negative for injury, rn pain, redness, and discharge, Neck: Negative for injury, pain, and swelling, Cardiovascular: Negative for chest pain, palpitations, and edema, Respiratory: Negative for shortness of breath, cough, wheezing, and pleuritic chest pain, Abdomen/GI: Negative for abdominal pain, nausea, vomiting, diarrhea, and constipation, Back: Negative for injury and pain, MS/Extremity: Negative for injury and deformity, Skin: Negative for injury, rash, and discoloration, Neuro: Negative for headache, weakness, numbness, tingling, and seizure. Exam: 18:20 Constitutional: This is a well developed, well nourished patient who is awake, alert, rn and in no acute distress. Head/Face: Normocephalic, atraumatic. Eyes: Pupils equal round and reactive to light, extra-ocular motions intact. Lids and lashes normal. Conjunctiva and sclera are non-icteric and not injected. Cornea within normal limits. Periorbital areas with no swelling, redness, or edema. Neck: Trachea midline, no thyromegaly or masses palpated, and no cervical lymphadenopathy. Supple, full range of motion without nuchal rigidity, or vertebral point tenderness. No Meningismus. Cardiovascular: Regular rate and rhythm with a normal S1 and S2. No gallops, murmurs, or rubs. Normal PMI, no JVD. No pulse deficits. Respiratory: Lungs have equal breath sounds bilaterally, clear to auscultation and percussion. No rales, rhonchi or wheezes noted. No increased work of breathing, no retractions or nasal flaring. Abdomen/GI: Soft, non-tender, with normal bowel sounds. No distension or tympany. No guarding or rebound. No evidence of tenderness throughout. MS/ Extremity: Pulses equal, no cyanosis. Neurovascular intact. Full, normal range of motion. Equal circumference. Neuro: Awake and alert, GCS 15, oriented to person, and situation, not time. Cranial nerves II-XII grossly intact. Motor strength 5/5 in all extremities. Sensory grossly intact. Cerebellar exam normal. Normal gait. + mild dysarthria Vital Signs: 15:38 BP 121 / 66; Pulse 67; Resp 18; Temp 97.9; Pulse Ox 99% on R/A; ph 16:30 BP 127 / 72; Pulse 63; Resp 19; Pulse Ox 100% on R/A; rb1 17:30 rb1 18:42 BP 102 / 68; Pulse 64; Resp 17; Pulse Ox 98% on R/A; rb1 20:15 BP 140 / 69; Pulse 64; Resp 17 S; Pulse Ox 100% on R/A; Pain 0/10; jd3 17:30 pt. refused vital signs at this time. rb1 MDM: 15:48 Patient medically screened. rn 20:55 Differential Diagnosis: agitation, consequence of hemorrhagic CVA. Data reviewed: vital rn signs, nurses notes, and as a result, I will admit patient. Counseling: I had a detailed discussion with the patient and/or guardian regarding: the historical points, exam findings, and any diagnostic results supporting the discharge/admit diagnosis, the need for further work-up and treatment in the hospital. ED course: Pt very agitated, confronted daughter and threatened her, refuses to go home with family, spoke with Dr. Lay, was kind enough to observe overnight as social work states could possibly be placed tomorrow. . Administered Medications: 17:14 Drug: Valium 5 mg Route: PO; rb1 17:45 Follow up: Response: No adverse reaction rb1 19:11 Drug: SEROquel 25 mg Route: PO; rb1 22:42 Follow up: Response: No adverse reaction jd3 Disposition: 03/04/18 20:59 Hospitalization ordered by Janis Redding for Observation. Preliminary diagnosis is Restlessness and agitation. - Bed requested for Telemetry/MedSurg (observation). - Status is Observation. jd3 - Condition is Stable. - Problem is an ongoing problem. - Symptoms are unchanged. UTI on Admission? No Signatures: Larissa Butts, RN RN Carlyle Kingston MD MD rn Barber, Rebecca, RN RN rb1 Jim Oliver RN RN jd3
[2018-03-05 05:17] LABS: Absolute Lymphocytes (CBC) 2.2 K/uL (0.7-4.9); Absolute Monocytes 0.7 K/uL (0.1-1.3); Absolute Neutrophil 3.6 K/uL (1.8-8.0); Basophils % 0.7 % (0-1.3); Eosinophils % 3.2 % (0-4.4); Hematocrit 36.9 % (39.6-49.0); Lymphocytes % 32.1 % (15.3-44.8); MCH 31.3 pg (27.0-35.0); MCV 93.3 fL (80-100); Monocytes % 10.9 % (3.3-12.3); RBC Red Blood Cell Count 3.96 M/uL (4.33-5.43)
[2018-03-05 05:39] LABS: Potassium 4.2 mEq/L (3.6-5.0)
--- NOTE | 2018-03-05 08:38 | P.HP ---
Certification for Inpatient Patient admitted to: Observation With expected LOS: <2 Midnights Practitioner: I am a practitioner with admitting privileges, knowledge of patient current condition, hospital course, and medical plan of care. Services: Services provided to patient in accordance with Admission requirements found in Title 42 Section 412.3 of the Code of Federal Regulations Patient History Date of Service: 03/04/18 Reason for admission: altered mental status, agitation History of Present Illness: MR Caballero is a 67 years old male with history of a recent hemorragic stroke, with subsequent frontal lobe syndrome. Since so the patient has been difficult to take care due to agitation and AMS episodes. His family is concern that he may attack his caregiver, and they do not feel confortable having the patient at home. Dr Kingston has consulted [facility], who is working on his placement. There are no history of fever, chills, nausea, vomiting or diarrhea. At my encounter the patient was in non-distress. Allergies No Known Allergies Allergy (Verified 03/04/18 22:56) Home Medications: Amlodipine [Norvasc] 10 mg PO DAILY 03/04/18 Atorvastatin Calcium 20 mg PO BEDTIME 03/04/18 Famotidine 20 mg PO BID 03/04/18 Lisinopril [Prinivil] 20 mg PO DAILY 03/04/18 Metoprolol Tartrate 50 mg PO Q12H 03/04/18 - Past Medical/Surgical History Diabetic: No -: Dimentia -: forntal lobe syndrome -: hemorragic stroke -: AMS -: HTN Past Surgical History: Reviewed- Non-Contributory -: brain surgery - Family History Family History: Reviewed- Non-Contributory - Social History Smoking Status: Never smoker Alcohol use: No CD- Drugs: No Caffeine use: Yes Place of Residence: Home Review of Systems 10-point ROS is otherwise unremarkable Physical Examination - Vital Signs Temperature: 98.2 F Blood Pressure: 124/56 Pulse: 53 Respirations: 18 Pulse Ox (%): 99 - Physical Exam General: Alert, In no apparent distress HEENT: Atraumatic, PERRLA, Mucous membr. moist/pink, EOMI, Sclerae nonicteric Neck: Supple, 2+ carotid pulse no bruit, No LAD, Without JVD or thyroid abnormality Respiratory: Clear to auscultation bilaterally, Normal air movement Cardiovascular: Regular rate/rhythm, Normal S1 S2 Gastrointestinal: Normal bowel sounds, No tenderness Musculoskeletal: No tenderness Integumentary: No rashes Neurological: Normal speech, Normal strength at 5/5 x4 extr, Normal tone, Normal affect, Dementia Lymphatics: No axilla or inguinal lymphadenopathy Assessment and Plan - Problems (Diagnosis) (1) Altered mental status Current Visit: Yes Status: Acute Qualifiers: Altered mental status type: disorientation Qualified Code(s): R41.0 - Disorientation, unspecified (2) Agitation Current Visit: Yes Status: Acute (3) history of hemorragic stroke Current Visit: Yes Status: Acute (4) Frontal lobe syndrome Current Visit: Yes Status: Acute - Plan The patient will be admitted to the hospital until found safe disposition plan. Social service continue working on his placement. [facility] - Advance Directives Does patient have a Living Will: Yes Does patient have a Durable POA for Healthcare: Yes - Code Status/Comfort Care Code Status Assessed: Yes Code Status: Full Code
[2018-03-05] MEDS: ENOXAPARIN 40 MG/0.4 ML SQ SCH ×2 (09:00→10:08)
[2018-03-05] MEDS ORDERED: FAMOTIDINE 20 MG TAB PO ONE (15:00)
--- NOTE | 2018-03-05 16:21 | P.PN ---
Subjective Date of Service: 03/05/18 Chief Complaint: altered mental status, agitation Pt seen and examined at bedside. Pt c/o of "bad people" at his house and his "daughter" doing things that she should not be doing. No other c/o this AM. Review of Systems 10-point ROS is otherwise unremarkable Physical Examination - Vital Signs Temperature: 97.8 F Blood Pressure: 126/68 Pulse: 65 Respirations: 16 Pulse Ox (%): 98 - Physical Exam General: In no apparent distress, Confused, Delirious, Other HEENT: Atraumatic Neck: Supple Respiratory: Clear to auscultation bilaterally, Normal air movement Cardiovascular: Normal pulses, Regular rate/rhythm, Normal S1 S2 Gastrointestinal: Normal bowel sounds, Soft and benign, No tenderness Musculoskeletal: No swelling Integumentary: No rashes Neurological: Normal gait, Normal strength at 5/5 x4 extr, Normal tone, Abnormal speech, Abnormal affect Assessment & Plan - Problems (Diagnosis) (1) Agitation Onset Date: 03/05/18 Current Visit: Yes Status: Resolved Plan: Pt is currently not agitated. He does however seem to be confused and have tangential thoughts. - Awaiting bed at the [facility] facility. Has been accepted at [facility]. (2) Altered mental status Onset Date: 03/05/18 Current Visit: Yes Status: Acute Qualifiers: Altered mental status type: unspecified Qualified Code(s): R41.82 - Altered mental status, unspecified (3) Frontal lobe syndrome Onset Date: 03/05/18 Current Visit: Yes Status: Chronic Discharge Plan: Other Plan to discharge in: 24 Hours - Code Status/Comfort Care Code Status Assessed: Yes Critical Care: No
[2018-03-05] MEDS ORDERED: QUETIAPINE 25 MG TAB PO SCH (21:00)
[2018-03-05] MEDS ORDERED: ATORVASTATIN 20 MG TAB PO SCH (21:00)
[2018-03-05] MEDS: METOPROLOL TAR 50 MG TAB PO SCH (21:15)
[2018-03-05] MEDS: FAMOTIDINE 20 MG TAB PO SCH (21:16)
[2018-03-06] MEDS ORDERED: LISINOPRIL 20 MG TAB PO SCH (09:00)
[2018-03-06] MEDS: ENOXAPARIN 40 MG/0.4 ML SQ SCH ×2 (09:00→09:38)
[2018-03-06] MEDS ORDERED: AMLODIPINE 10 MG TAB PO SCH (09:00)
[2018-03-06] MEDS: METOPROLOL TAR 50 MG TAB PO SCH (09:38)
[2018-03-06] MEDS: FAMOTIDINE 20 MG TAB PO SCH (09:39)
--- NOTE | 2018-03-06 15:31 | P.DS ---
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 Since so the patient has been difficult to take care due to agitation and AMS episodes. His family is concern that he may attack his caregiver, and they do not feel confortable having the patient at home. Dr Kingston has consulted social service, who is working on his placement. There are no history of fever, chills, nausea, vomiting or diarrhea. At my encounter the patient was in non-distress. Hospital Course: Overall during the hospital stay patient remained stable Patient was accepted at the [facility] with the bed availability at [facility] and will be transferred over to the custodial for further care. Vital Signs/Physical Exam: Temp Pulse Resp BP Pulse Ox 97.8 F 57 18 126/58 L 99 03/06/18 12:00 03/06/18 12:00 03/06/18 12:00 03/06/18 12:00 03/06/18 12:00 General: Alert, In no apparent distress HEENT: Atraumatic, PERRLA, EOMI Neck: Supple, JVD not distended Respiratory: Clear to auscultation bilaterally, Normal air movement Cardiovascular: Regular rate/rhythm, Normal S1 S2 Gastrointestinal: Normal bowel sounds, No tenderness Musculoskeletal: No tenderness Integumentary: No rashes Neurological: Normal speech, Normal tone, Normal affect Lymphatics: No axilla or inguinal lymphadenopathy Laboratory Data at Discharge: WBC 6.7 K/uL (4.3-10.9) 03/05/18 04:51 Hgb 12.4 g/dL (13.6-17.9) L 03/05/18 04:51 Hct 36.9 % (39.6-49.0) L 03/05/18 04:51 Plt Count 131 K/uL (152-406) L D 03/05/18 04:51 Sodium 140 mEq/L (135-145) 03/05/18 04:51 Potassium 4.2 mEq/L (3.6-5.0) 03/05/18 04:51 BUN 11 mg/dL (6-20) 03/05/18 04:51 Creatinine 0.85 mg/dL (0.61-1.24) 03/05/18 04:51 Glucose 99 mg/dL (65-120) 03/05/18 04:51 Home Medications: Amlodipine [Norvasc*] 10 mg PO DAILY 03/04/18 Atorvastatin Calcium 20 mg PO BEDTIME 03/04/18 Famotidine 20 mg PO BID 03/04/18 Lisinopril [Prinivil*] 20 mg PO DAILY 03/04/18 Metoprolol Tartrate 50 mg PO Q12H 03/04/18 Diet: Regular Activity: Ad denisha Followup: Simone Peacock MD [ASSOCIATE-ACTIVE - CAN ADMIT] - If your Symptoms Worsen
== END 2018-03-06 13:05 ==
LOC: ER 15:24 → ERHOLD 21:00 → 2ND 22:30
PROVIDERS: ADMIT Internal Medicine; ATTEND Internal Medicine
DX: R45.1 Restlessness and agitation (principal); F07.0 Personality change due to known physiological condition; Z86.73 Personal history of transient ischemic attack (TIA), and cerebral infarction without residual deficits; I10 Essential (primary) hypertension
CPT/HCPCS: 36415; 80048; 85025; 99285; G0378 ×2; J1650 ×2

== ENCOUNTER 2019-04-01 20:51 | Emergency (ER) | payer OTHER ==
--- OUTSIDE RECORDS SUMMARY | 2019-04-01 20:55 | XMS REPORT | Clinical Summary ---
:1950 Author Organization [facility] Address [facility] [place] [address] Care Team Providers Name Role Phone Unavailable Primary Care Provider Unavailable Allergies No Known Allergies Medications Medication Sig Dispensed Refills Start Date End Date Status amLODIPine (NORVASC) 5 Take 1 tablet by 30 tablet 6 09/10/2018 Active mg tabletIndications: mouth daily. Acute ischemic left WAFER [employer]STR[employer] TE[employer] stroke aspirin (ASPIRIN) 81 mg Chew and swallow 30 tablet 6 09/10/2018 Active chewable 1 tablet by mouth tabletIndications: daily. Acute ischemic left WAF[employer] TE[employer] stroke atorvastatin (LIPITOR) Take 1 tablet by 30 tablet 6 09/10/2018 Active 40 mg mouth at bedtime tabletIndications: nightly. Acute ischemic left WAFER SUBSTRATE TE[employer] stroke Active Problems Problem Noted Date Aphasia Resolved Problems Problem Noted Date Resolved Date Confusion 09/04/2018 09/10/2018 Encounters Date Type Specialty Care Team Description 09/08/2018 Orders Only Cardiology Alli Barrow 09/04/2018 - Hospital Encounter Jean-Claude Antonio, Confusion (Primary Dx) ; 09/10/2018 Acute ischemic left WAFER SUBSTR[employer] TE[employer] stroke; Arcelia Garcia MD Aphasia Keisha Lyles MD after 03/31/2018 Social History Tobacco Use Types Packs/Day Years Used Date Never Assessed Sex Assigned at Date Recorded Not on file Job Start Date Occupation Industry Not on file Not on file Not on file Travel History Travel Start Travel End No recent travel history available. Last Filed Vital Signs Vital Sign Reading Time Taken Blood Pressure 126/74 09/10/2018 3:49 PM CDT Pulse 66 09/10/2018 3:49 PM CDT Temperature 36.7 C (98 F) 09/10/2018 3:49 PM CDT Respiratory Rate 14 09/10/2018 3:49 PM CDT Oxygen Saturation 100% 09/06/2018 11:21 AM CDT Inhaled Oxygen Concentration - - Weight 72.6 kg (160 lb) 09/07/2018 9:01 AM CDT Height 175.3 cm (5' 9") 09/07/2018 9:01 AM CDT Body Mass Index 23.63 09/07/2018 9:01 AM CDT Plan of Treatment Health Maintenance Due Date Last Done Comments Colorectal Cancer Scrn Annual (FIT/FOBT) Age 50 to 75 2000 IMM Pneumococcal Age 65 and Up 2015 IMM Influenza Seasonal Aug to January (>/=19 yrs) 08/18/2019 Procedures Procedure Name Priority Date/Time Associated Comments Diagnosis MRI BRAIN W/O CONTRAST DENITA 09/10/2018 7:56 Acute ischemic left Results for this AM CDT [employer] stroke procedure are in the results section. TTE FOLLOW UP 09/09/2018 4:22 Results for this PM CDT procedure are in the results section. EEG-PORTABLE AT Routine 09/09/2018 11:40 Results for this BEDSIDE AM CDT procedure are in the results section. TRANSTHORACIC ECHO 09/08/2018 7:57 Results for this (TTE) AM CDT procedure are in the results section. CONSULT CLINICAL CASE Routine 09/08/2018 7:38 MANAGEMENT (RN/SW) AM CDT LIPID PROFILE Routine 09/06/2018 3:30 Results for this AM CDT procedure are in the results section. MAGNESIUM Routine 09/06/2018 3:30 Results for this AM CDT procedure are in the results section. CBC/DIFF Routine 09/06/2018 3:30 Results for this AM CDT procedure are in the results section. BASIC METABOLIC PANEL Routine 09/06/2018 3:30 Results for this AM CDT procedure are in the results section. URINE DRUG SCREEN STAT 09/05/2018 2:02 Results for this PM CDT procedure are in the results section. IP CONSULT TO PHYSICAL STAT 09/05/2018 11:41 THERAPY AM CDT PT/INR/PTT STAT 09/05/2018 11:30 Results for this AM CDT procedure are in the results section. CTA NECK W CONTRAST STAT 09/05/2018 11:04 Confusion Results for this AM CDT procedure are in the results section. CTA HEAD W CONTRAST STAT 09/05/2018 11:04 Confusion Results for this AM CDT procedure are in the results section. CONSULT CLINICAL CASE STAT 09/05/2018 8:39 MANAGEMENT (RN/SW) AM CDT VBG POC Routine 09/05/2018 4:37 Results for this AM CDT procedure are in the results section. TROPONIN I STAT 09/05/2018 4:09 Results for this AM CDT procedure are in the results section. BASIC METABOLIC PANEL Routine 09/05/2018 4:09 Results for this AM CDT procedure are in the results section. XRAY CHEST 2 VIEWS STAT 09/05/2018 3:20 Confusion Results for this AM CDT procedure are in the results section. BLOOD CULTURE STAT 09/05/2018 2:53 Results for this AM CDT procedure are in the results section. FUNGUS CULTURE,BLOOD STAT 09/05/2018 2:43 Results for this AM CDT procedure are in the results section. BLOOD CULTURE STAT 09/05/2018 2:43 Results for this AM CDT procedure are in the results section. FOLIC ACID STAT 09/04/2018 11:42 Results for this PM CDT procedure are in the results section. VITAMIN B12 STAT 09/04/2018 11:42 Results for this PM CDT procedure are in the results section. SYPHILIS SCREEN FOR STAT 09/04/2018 11:42 Results for this INFECTION PM CDT procedure are in the results section. CT HEAD W/O CONTRAST STAT 09/04/2018 7:48 Confusion Results for this PM CDT procedure are in the results section. 12 LEAD EKG Routine 09/04/2018 6:34 Results for this PM CDT procedure are in the results section. BMP POC Routine 09/04/2018 6:26 Results for this PM CDT procedure are in the results section. AMMONIA STAT 09/04/2018 6:15 Results for this PM CDT procedure are in the results section. TSH STAT 09/04/2018 6:15 Results for this PM CDT procedure are in the results section. LIVER PROFILE STAT 09/04/2018 6:15 Results for this PM CDT procedure are in the results section. MAGNESIUM STAT 09/04/2018 6:15 Results for this PM CDT procedure are in the results section. HIV-1/HIV-2 STAT 09/04/2018 6:15 Results for this DIAGNOSTIC/SYMPTOMATIC PM CDT procedure are in the results section. CBC/DIFF STAT 09/04/2018 6:15 Results for this PM CDT procedure are in the results section. after 03/31/2018 Results MRI BRAIN W/O CONTRAST (09/10/2018 7:56 AM CDT) Impressions Performed At IMPRESSION: SMS 1. No acute intracranial abnormalities. 2. No changes compared to prior head CTA on 09/05/2018. Persistent findings: 1.Left parieto-occipital craniotomy. 2.Encephalomalacia of the left occipital lobe as described. 3.Moderate supratentorial white matter microvascular ischemic changes. Dictated By: Mika Holden MD, 09/10/2018 8:34 AM I have reviewed the study and agree with the findings in this report. 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 Technique: Sagittal and axial T2, axial T1 and T2 flair, gradient echo, Coronal T2 Flair, DWI and ADC FINDINGS: Scalp: No abnormalities Bone marrow:No signal abnormalities. Brain sulci: Moderately prominent. Moderate generalized volume loss. Ventricles: Ex-vacuo compensatory dilatation, more prominent along the occipital horn of the left lateral ventricle with a small porencephalic cyst. No hydrocephalus. Extra-axial spaces: No masses or fluid collections. Parenchyma: Scattered and confluent T2 FLAIR hyperintense foci in the supratentorial white matter are nonspecific small vessel ischemic changes. 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 No masses, acute hemorrhage, acute cortical vascular insults. Vessels: Normal flow voids in major arteries and veins. Sellar/Suprasellar region:No abnormalities Craniocervical junction: No abnormalities. Procedure Note Interface, Rad/Mammog In - 09/10/2018 9:00 AM CDT Exam: Brain MRI without contrast History: L WAFER SUBSTRATE TESTER stroke Comparison studies: Head CT and CTA on 09/05/2018. Technique: Sagittal and axial T2, axial T1 and T2 flair, gradient echo, Coronal T2 Flair, DWI and ADC FINDINGS: Scalp: No abnormalities Bone marrow: No signal abnormalities. Brain sulci: Moderately prominent. Moderate generalized volume loss. Ventricles: Ex-vacuo compensatory dilatation, more prominent along the occipital horn of the left lateral ventricle with a small porencephalic cyst. No hydrocephalus. Extra-axial spaces: No masses or fluid collections. Parenchyma: Scattered and confluent T2 FLAIR hyperintense foci in the supratentorial white matter are nonspecific small vessel ischemic changes. 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 No masses, acute hemorrhage, acute cortical vascular insults. Vessels: Normal flow voids in major arteries and veins. Sellar/Suprasellar region: No abnormalities Craniocervical junction: No abnormalities. IMPRESSION IMPRESSION: 1. No acute intracranial abnormalities. 2. No changes compared to prior head CTA on 09/05/2018. Persistent findings: 1. Left parieto-occipital craniotomy. 2. Encephalomalacia of the left occipital lobe as described. 3. Moderate supratentorial white matter microvascular ischemic changes. Dictated By: Mika Holden MD, 09/10/2018 8:34 AM I have reviewed the study and agree with the findings in this report. Signed By: Lucia Norris MD, 09/10/2018 8:54 AM Performing Organization Address City/State/Zipcode Phone Number [facility] TTE FOLLOW UP (09/09/2018 4:22 PM CDT) [facility] ECHO HEART SMS XTHORACIC,LIMITED Transthoracic Echo Report CONRADO CABALLERO Age:68 Gender: M :1950 Exam Date: 09/09/2018 16:22 Exam Location: [facility] Echo Ordering Phys: LOBO RUSSELL Referring Phys:DREW Rodriguez Reading Phys:Pauline Juarez MD Fellow Phys: Fellow Phys: Broodmare Foreman: Chase Silverman Reason For Exam: Indications:stroke, Stroke ICD-9 Codes: I67.89 Exam Type: TTE FOLLOW UP Procedure CPT:27309 Addtional CPT: Ht (in): 69 BSA: 1.88HR: 88 Rhythm: Sinus rhythm Wt (lb): 160BP: 140/ 82 Technical Quality: limited History: MEASUREMENTS(Male / Female) Normal Values FINDINGS Left Ventricle Right Ventricle Right Atrium Left Atrium IAS Agitated saline contrast administered with and without Valsalva maneuver demonstrates no interatrial shunt. Mitral Valve Aortic Valve Tricuspid Valve Pulmonic Valve Pericardium Aorta IVC CONCLUSIONS Limited study for bubbles study Agitated saline contrast administered with and without Valsalva maneuver demonstrates no interatrial shunt. see other details in previous full study Pauline Juarez MD (Electronically Signed) Final Date:09 September 2018 16:27 Performing Organization Address City/State/Zipcode Phone Number SMS EEG-PORTABLE AT BEDSIDE (09/09/2018 11:40 AM CDT) Narrative Performed At [facility] EEG Report Generated: 09/10/2018 8:56:18 AM Patient Information ID [id number] EEG Date 09/09/2018 Name CONRADO CABALLERO EEG No. [id number] Gender Male In/Out patient In Date of 1950 Refer. Dept. SHERRY Age 68 yr 1 mo Refer. 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 There is low voltage 18 to 22 Hz activity in anterior regions. Moderate voltage 2 to 4 Hz activity is present in the left temporal region with wide are al reflection on that side. Photic stimulation: No abnormal activity elicited. IMPRESSION: This patient's electroencephalogram is abnormal in the presence of a focus of slow (delta and theta) activity in the left hemisphere consistent with the presence of a focal lesion on that side. No e pileptiform activity is present. No electrographic seizures were recorded. Gina Soto MD ICD10: R56.9 Provider ID: [id number] Procedure Note Interface, Eeg-Results - 09/10/2018 8:59 AM CDT [facility] EEG Report Generated: 09/10/2018 8:56:18 AM Patient Information ID [id number] EEG Date 09/09/2018 Name CONRADO CABALLERO EEG No. [id number] Gender Male In/Out patient In Date of 1950 Refer. Dept. SHERRY Age 68 yr 1 mo Refer. 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 There is low voltage 18 to 22 Hz activity in anterior regions. Moderate voltage 2 to 4 Hz activity is present in the left temporal region with wide are al reflection on that side. Photic stimulation: No abnormal activity elicited. IMPRESSION: This patient's electroencephalogram is abnormal in the presence of a focus of slow (delta and theta) activity in the left hemisphere consistent with the presence of a focal lesion on that side. No e pileptiform activity is present. No electrographic seizures were recorded. Gina Soto MD ICD10: R56.9 Provider ID: [id number] Performing Organization Address City/State/Zipcode Phone Number [employer] [address] [facility] [address] [place] [address] TRANSTHORACIC ECHO (TTE) (09/08/2018 7:57 AM CDT) [facility] TRANSTHORACIC ECHO SMS (TTE) Transthoracic Echo Report CONRADO CABALLERO Age:68 Gender: M :1950 Exam Date: 09/08/2018 07:57 Exam Location: [facility] Echo Ordering Phys: KEISHA LYLES Referring Phys:[id number] Reading Phys:Alexandra Purvis Fellow Phys: Fellow Phys: Broodmare Foreman: Alli Barrow Reason For Exam: Indications:Stroke ICD-9 Codes: I67.89 Exam Type: TRANSTHORACIC ECHO (TTE) Procedure CPT:41261 Addtional CPT: Ht (in): 69 BSA: 1.88HR: 71 Rhythm: Sinus rhythm Wt (lb): 160BP: 134/ 67 Technical Quality: Adequate History: L WAFER SUBSTRATE TESTER stroke MEASUREMENTS(Male / Female) Normal Values 2D ECHO LV Diastolic Diameter PLAX5 cm 4.2 - 5.9 / 3.9 - 5.3 cm LV Systolic Diameter PLAX 3.2 cm 2.1 - 4.0 cm LV Fractional Shortening PLAX 37.5 % 25 - 46% IVS Diastolic Thickness 0.83 cm LVPW Diastolic Thickness1 cm LV Relative Wall Thickness0.37 LVOT Diameter 2.1 cm Aortic Root Diameter3.4 cm LV Diastolic Volume MOD 4C76.4 cm LV Systolic Volume MOD 4C 32.7 cm LV Ejection Fraction MOD 4C 57.2 % LV Stroke Volume MOD 4C 43.7 cm LV Cardiac Output MOD 4H0395 cm/min LV Cardiac Index MOD 4C 1648 cm/minm RV Diastolic Basal Diameter 3.6 cm 2.0 - 2.8 cm RA Area 15.3 cm DOPPLER AV Peak Rejxsnxk735 cm/s AV Peak Gradient8.6 mmHg Aortic R to R Interval0.69 s LVOT Peak Wuuhpdzs573 cm/s LVOT Peak Gradient4.5 mmHg LVOT Mean Mziiihtp58.8 cm/s LVOT Mean Gradient1.9 mmHg LVOT Velocity Time Integral 20.6 cm LVOT Stroke Trfjwu65.7 cm LVOT Cardiac Output 6.3 liters/min LVOT Cardiac Index3.3 l/minm AV Area Cont Eq pk2.5 cm Mitral E Point Velocity 58 cm/s Mitral A Point Velocity 78.3 cm/s Mitral E to A Ratio 0.74 FINDINGS Left Ventricle Normal left ventricular size. Normal left ventricular wall thickness. Normal left ventricular systolic function. Left ventricular ejection fraction is 60%. There are no regional wall motion abnormalities noted.The mitral inflow Doppler signals suggest impaired LV relaxation (Grade I pattern), however tissue Doppler was not performed to assess LV filling pressure. Right Ventricle Grossly normal right ventricular size and function. Right Atrium Normal right atrial size. Left Atrium Left atrium not well visualized. IAS Mitral Valve Mitral leaflets mildly thickened. The mitral valve leaflets bow during systole, but do not frankly prolapse. Trace mitral regurgitation. Aortic Valve The aortic valve is mild to moderately thickened, tricuspid, and opens well. Mild aortic regurgitation. Tricuspid Valve Mild thickening of the tricuspid valve. Trace tricuspid regurgitation. Insufficient TR jet to estimate pulmonary artery systolic pressure. Pulmonic Valve Pulmonic valve not well visualized. Pericardium No pericardial effusion. Aorta Normal size aortic root. IVC IVC is normal in size. RA pressure is 0-5 mmHg. CONCLUSIONS No prior study for comparison. 1. Normal left ventricular size. Normal left ventricular wall thickness. Normal left ventricular systolic function. Left ventricular ejection fraction is 60%. There are no regional wall motion abnormalities noted.The mitral inflow Doppler signals suggest impaired LV relaxation (Grade I pattern), however tissue Doppler was not performed to assess LV filling pressure. 2. Grossly normal right ventricular size and function. 3. Normal right atrial size.Left atrium not well visualized. 4. Mitral leaflets mildly thickened. The mitral valve leaflets bow during systole, but do not frankly prolapse. Trace mitral regurgitation. 5. The aortic valve is mild to moderately thickened, tricuspid, and opens well. Mild aortic regurgitation. 6. Insufficient TR jet to estimate pulmonary artery systolic pressure. IVC is normal in size. RA pressure is 0-5 mmHg. Alexandra Purvis MD (Electronically Signed) Final Date:08 September 2018 14:20 2D ECHO LV Diastolic Diameter PLAX5 cm 4.2 - 5.9 / 3.9 - 5.3 cm LV Systolic Diameter PLAX 3.2 cm 2.1 - 4.0 cm LV Fractional Shortening PLAX 37.5 % 25 - 46% IVS Diastolic Thickness 0.83 cm LVPW Diastolic Thickness1 cm LV Relative Wall Thickness0.37 LVOT Diameter 2.1 cm Aortic Root Diameter3.4 cm LV Diastolic Volume MOD 4C76.4 cm LV Systolic Volume MOD 4C 32.7 cm LV Ejection Fraction MOD 4C 57.2 % LV Stroke Volume MOD 4C 43.7 cm LV Cardiac Output MOD [id number] cm/min LV Cardiac Index MOD 4C 1648 cm/minm RV Diastolic Basal Diameter 3.6 cm 2.0 - 2.8 cm RA Area 15.3 cm DOPPLER AV Peak Lglzbpof906 cm/s AV Peak Gradient8.6 mmHg Aortic R to R Interval0.69 s LVOT Peak Yhqnadxl560 cm/s LVOT Peak Gradient4.5 mmHg LVOT Mean Bprgiric19.8 cm/s LVOT Mean Gradient1.9 mmHg LVOT Velocity Time Integral 20.6 cm LVOT Stroke Wtkuej01.7 cm LVOT Cardiac Output 6.3 liters/min LVOT Cardiac Index3.3 l/minm AV Area Cont Eq pk2.5 cm Mitral E Point Velocity 58 cm/s Mitral A Point Velocity 78.3 cm/s Mitral E to A Ratio 0.74 Performing Organization Address [facility] Phone Number SMS MAGNESIUM (09/06/2018 3:30 AM CDT)Only the most recent of2 resultswithin the time period is included. Magnesium 1.8 (L) 1.9 - 2.7 mg/dL BT MAIN-STATION 1 Specimen Blood Performing Organization Address [facility] Phone Number MISYS BT MAIN-STATION 1 LIPID PROFILE (09/06/2018 3:30 AM CDT) Cholesterol 158 mg/dL BT MAIN-STATION 1 Comment: REFERENCE RANGE: Desirable: <200 mg/dL Borderline: 200-240 mg/dL High Risk: >240 mg/dL Triglyceride 145 <150 mg/dL BT MAIN-STATION 1 Comment: REFERENCE RANGE: Normal: <150 mg/dL Borderline High: 150-199 mg/dL High: 200-499 mg/dL Very High: >vu=746 mg/dL HDL 32 mg/dL BT MAIN-STATION 1 Comment: Increased CHD risk: <40 mg/dL Decreased CHD risk: >60 mg/dL LDL 97 mg/dL BT MAIN-STATION 1 Comment: REFERENCE RANGE: Optimal: <100 mg/dL Near Optimal: 100-129 mg/dL Borderline High: 130-159 mg/dL High: 160-189 mg/dL Very High: >fd=282 mg/dL Performing Organization Address City/State/Zipcode Phone Number MISYS BT MAIN-STATION 1 CBC/DIFF (09/06/2018 3:30 AM CDT)Only the most recent of2 resultswithin the time period is included. WBC 5.6 4.5 - 12.0 K/uL BT MAIN-STATION 2 RBC 4.51 (L) 4.60 - 6.20 M/uL BT MAIN-STATION 2 Hemoglobin 14.4 14.0 - 18.0 g/dL BT MAIN-STATION 2 Hematocrit 40.7 40.0 - 54.0 % BT MAIN-STATION 2 MCV 90 82 - 92 fL BT MAIN-STATION 2 MCH 31.9 (H) 27.0 - 31.0 pg BT MAIN-STATION 2 MCHC 35.4 32.0 - 36.0 g/dL BT MAIN-STATION 2 RDW 41.6 35.1 - 43.9 fL BT MAIN-STATION 2 Platelet 156 150 - 400 K/uL BT MAIN-STATION 2 Mean Platelet Volume 10.8 9.4 - 12.4 fL BT MAIN-STATION 2 Percent NRBC 0.0 BT MAIN-STATION 2 Absolute NRBC 0.00 BT MAIN-STATION 2 Neutrophil 50.8 34.0 - 67.9 % BT MAIN-STATION 2 Lymphocyte 35.1 21.8 - 50.0 % BT MAIN-STATION 2 Monocyte 11.9 5.3 - 12.0 % BT MAIN-STATION 2 Eosinophil 1.3 0.8 - 5.0 % BT MAIN-STATION 2 Basophil 0.7 0.2 - 1.2 % BT MAIN-STATION 2 Pct Immat Gran 0.2 0.0 - 0.5 BT MAIN-STATION 2 Neutrophil, Abs 2.82 1.78 - 5.36 K/uL BT MAIN-STATION 2 Lymphocyte, Abs 1.95 1.32 - 3.57 K/uL BT MAIN-STATION 2 Monocyte, Abs 0.66 0.30 - 0.82 K/uL BT MAIN-STATION 2 Eosinophil, Abs 0.07 0.04 - 0.54 K/uL BT MAIN-STATION 2 Basophil, Abs 0.04 0.01 - 0.08 K/uL BT MAIN-STATION 2 Absol Immat Gran 0.01 0.00 - 0.03 K/uL BT MAINSTATION 2 Specimen Blood Performing Organization Address [facility] Phone Number MISYS MAIN-STATION 2 BASIC METABOLIC PANEL (09/06/2018 3:30 AM CDT)Only the most recent of2 resultswithin the time period is included. CO2 24 21 - 31 mmol/L BT MAIN-STATION 1 Chloride 108 (H) 98 - 107 mmol/L BT MAIN-STATION 1 Potassium 3.8 3.5 - 5.1 mmol/L BT MAIN-STATION 1 Sodium 141 136 - 145 mmol/L BT MAIN-STATION 1 Glucose 98 70 - 110 mg/dL BT MAIN-STATION 1 Urea Nitrogen 9 7 - 25 mg/dL BT MAIN-STATION 1 Creatinine 0.80 0.7 - 1.3 mg/dL BT MAIN-STATION 1 Anion Gap 9 BT MAIN-STATION 1 Calcium 9.2 8.6 - 10.3 mg/dL BT MAIN-STATION 1 GFR, Estimated >60 mL/min/1.73 m2 BT MAIN-STATION 1 GFR, Estim, Afr-Am >60 mL/min/1.73 m2 MAIN-STATION 1 Specimen Blood Performing Organization Address [facility] Phone Number MISYS MAINSTATION 1 URINE DRUG SCREEN (09/05/2018 2:02 PM CDT) Amphetamine Negative NEG BT MAIN-STATION 1 Comment: Calibrated Standard: D-Methamphetamine Positive if urine level >ba=1490 ng/mL Test performed on [id number] using EMIT Immunoassay Barbiturate Negative NEG BT MAIN-STATION 1 Comment: Calibrated Standard: Secobarbital Positive if urine level is >jg=237 ng/mL Test performed on [id number] using EMIT Immunoassay Benzodiazepine Negative NEG BT MAIN-STATION 1 Comment: Calibrated Standard: Lormethazepam Positive if urine level is >ho=606 ng/mL Test performed on [id number] using EMIT Immunoassay Cannabinoid Negative NEG BT MAIN-STATION 1 Comment: Calibrated Standard: 11 nor-delta(9)-THC carboxylic a Positive if urine level >or=50 Test performed on [id number] using EMIT Immunoassay Cocaine Negative NEG BT MAIN-STATION 1 Comment: Calibrated Standard: Benzoylecgonine Positive if urine level >hz=883 Test performed on [id number] using EMIT Immunoassay Opiate, Ur Negative NEG BT MAIN-STATION 1 Comment: Calibrated Standard: Morphine Positive if urine level >em=391 Test performed on [id number] using EMIT Immunoassay PCP Negative NEG BT MAIN-STATION 1 Comment: Calibrated Standard: Phencyclidine Positive if urine level >or=25 Test performed on [id number] using EMIT Immunoassay Urine Toxicology Screen results are to be used only for Medical purposes. Specimen Urine Performing Organization Address City/State/Zipcode Phone Number MISYS BT MAIN-STATION 1 PT/INR/PTT (09/05/2018 11:30 AM CDT) PT 15.1 (H) 11.8 - 15.0 BT MAIN-STATION 3 Seconds INR 1.2 BT MAIN-STATION 3 SUGGESTED THERAPEUTIC RANGES: INR 2.0-3.0 for MODERATE INTENSITY ANTICOAGULATION INR 2.5-3.5 for HIGH INTENSITY ANTICOAGULATION PTT 33.8 23.6 - 36.4 BT MAIN-STATION 3 Seconds Specimen Blood Performing Organization Address City/State/[facility] Phone Number MISYS BT MAIN-STATION 3 CTA NECK W CONTRAST (09/05/2018 11:04 AM CDT) Impressions Performed At IMPRESSION: [facility] Head CT: No new acute intracranial abnormalities or changes when compared to head CT 09/04/2018. 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 3.Moderate supratentorial white matter microvascular ischemic changes. 4.Moderate ventriculomegaly in the lateral and third ventricles with ex vacuo dilatation of the left lateral ventricular occipital horn slightly disproportionate to cerebral volume loss. CTA's 1. Atherosclerotic changes in the left greater than right carotid bulb without associated hemodynamically significant stenosis (less than 50%). 2. Questionable luminal irregularities in the left M1 segment suggestive of atherosclerotic disease. 3. Otherwise, no cervical or intracranial vascular abnormalities. Dictated By: Ira Darling MD, 09/05/2018 11:47 AM I have reviewed the study and agree with the findings in this report. Signed By: Lucia Norris MD, 09/05/2018 11:53 AM Narrative Performed At Exams: Cervical and Intracranial CT angiograms. SMS History: stroke Comparison studies: Head CT 09/04/2018. Technique: Axial CT scans obtained from the skull base to the vertex without and with contrast. Axial images obtained through the cervical and intracranial regions during injection of IV contrast. For optimization of anatomic evaluation, multiplanar reconstruction, maximum intensity projections, and advanced 3-D off-line postprocessing were obtained on a dedicated stand-alone workstation under the direct supervision of the interpreting physician. IV [id number] cc of Omnipaque. Complication: None Radiation dose: Total DLP: 2265 mGy*cm Estimated Effective Dose: DLP x 0.031 mSv FINDINGS: Head CT's without and with contrast: See impression. Cervical CTA: If present, stenosis of the carotid bulbs is measured based on NASCET criteria, i.e. area of maximal stenosis compared to the cervical ICA distal to the bulb. Aortic arch: Patent with moderate atherosclerotic calcifications. Common Carotid arteries: Patent, no abnormalities. Carotid Bulbs: Soft and calcified atherosclerotic plaque bilaterally, without hemodynamically significant stenosis (less than 50%). Internal Carotid arteries: Patent, no abnormalities. Vertebral arteries: Patent, no abnormalities. Intracranial CTA: Anterior Circulation: Internal carotid arteries: Calcified atherosclerotic lack in the bilateral carotid siphons with mild narrowing. Middle cerebral arteries: Minimal nonspecific irregularity of the left MCA M1 segment without associated stenoses. Otherwise patent bilaterally. Anterior cerebral arteries: Patent with no abnormalities. Vertebrobasilar Circulation: Vertebral arteries: Patent, no abnormalities. Basilar artery: Patent, no abnormalities. Posterior cerebral arteries:Patent, no abnormalities. Normal Variants: Acom: Patent Pcoms:Patent on the right, not clearly seen on the left. Vertebral arteries: Co-dominant. Cervical spine: C3-C4: Disc osteophyte complex formation with small central disc protrusion, bilateral uncovertebral and facet arthrosis. Moderate canal and severe foraminal stenosis. C4-C5: Asymmetric to left disc osteophyte, uncovertebral and facet arthroses. Mild spinal canal and severe left foraminal stenosis. Mild right foraminal stenosis. C5-C6: Disc osteophyte complex formation asymmetric to the left, bilateral uncovertebral and facet arthroses, severe spinal canal and foraminal stenosis on the left. Moderate right foraminal stenosis. C6-C7: Prominent disc osteophyte complex formation asymmetric to the right, bilateral uncovertebral and facet arthrosis. Severe spinal canal and bilateral foraminal stenosis. Procedure Note Interface, Rad/Mammog In - 09/05/2018 11:59 AM CDT Exams: Cervical and Intracranial CT angiograms. History: stroke Comparison studies: Head CT 09/04/2018. Technique: Axial CT scans obtained from the skull base to the vertex without and with contrast. Axial images obtained through the cervical and intracranial regions during injection of IV contrast. For optimization of anatomic evaluation, multiplanar reconstruction, maximum intensity projections, and advanced 3-D off-line postprocessing were obtained on a dedicated stand-alone workstation under the direct supervision of the interpreting physician. IV Contrast 100 cc of Omnipaque. Complication: None Radiation dose: Total DLP: 2265 mGy*cm Estimated Effective Dose: DLP x 0.031 mSv FINDINGS: Head CT's without and with contrast: See impression. Cervical CTA: If present, stenosis of the carotid bulbs is measured based on NASCET criteria, i.e. area of maximal stenosis compared to the cervical ICA distal to the bulb. Aortic arch: Patent with moderate atherosclerotic calcifications. Common Carotid arteries: Patent, no abnormalities. Carotid Bulbs: Soft and calcified atherosclerotic plaque bilaterally, without hemodynamically significant stenosis (less than 50%). Internal Carotid arteries: Patent, no abnormalities. Vertebral arteries: Patent, no abnormalities. Intracranial CTA: Anterior Circulation: Internal carotid arteries: Calcified atherosclerotic lack in the bilateral carotid siphons with mild narrowing. Middle cerebral arteries: Minimal nonspecific irregularity of the left MCA M1 segment without associated stenoses. Otherwise patent bilaterally. Anterior cerebral arteries: Patent with no abnormalities. Vertebrobasilar Circulation: Vertebral arteries: Patent, no abnormalities. Basilar artery: Patent, no abnormalities. Posterior cerebral arteries: Patent, no abnormalities. Normal Variants: Acom: Patent Pcoms:Patent on the right, not clearly seen on the left. Vertebral arteries: Co-dominant. Cervical spine: C3-C4: Disc osteophyte complex formation with small central disc protrusion, bilateral uncovertebral and facet arthrosis. Moderate canal and severe foraminal stenosis. C4-C5: Asymmetric to left disc osteophyte, uncovertebral and facet arthroses. Mild spinal canal and severe left foraminal stenosis. Mild right foraminal stenosis. C5-C6: Disc osteophyte complex formation asymmetric to the left, bilateral uncovertebral and facet arthroses, severe spinal canal and foraminal stenosis on the left. Moderate right foraminal stenosis. C6-C7: Prominent disc osteophyte complex formation asymmetric to the right, bilateral uncovertebral and facet arthrosis. Severe spinal canal and bilateral foraminal stenosis. IMPRESSION IMPRESSION: Head CT: No new acute intracranial abnormalities or changes when compared to head CT 09/04/2018. Persistent findings: 1. 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 2. 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 3. Moderate supratentorial white matter microvascular ischemic changes. 4. Moderate ventriculomegaly in the lateral and third ventricles with ex vacuo dilatation of the left lateral ventricular occipital horn slightly disproportionate to cerebral volume loss. CTA's 1. Atherosclerotic changes in the left greater than right carotid bulb without associated hemodynamically significant stenosis (less than 50%). 2. Questionable luminal irregularities in the left M1 segment suggestive of atherosclerotic disease. 3. Otherwise, no cervical or intracranial vascular abnormalities. Dictated By: Ira Darling MD, 09/05/2018 11:47 AM I have reviewed the study and agree with the findings in this report. Signed By: Lucia Norris MD, 09/05/2018 11:53 AM Performing Organization Address City/State/Zipcode Phone Number [facility] CTA HEAD W CONTRAST (09/05/2018 11:04 AM CDT) Impressions Performed At IMPRESSION: [facility] Head CT: No new acute intracranial abnormalities or changes when compared to head CT 09/04/2018. 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 3.Moderate supratentorial white matter microvascular ischemic changes. 4.Moderate ventriculomegaly in the lateral and third ventricles with ex vacuo dilatation of the left lateral ventricular occipital horn slightly disproportionate to cerebral volume loss. CTA's 1. Atherosclerotic changes in the left greater than right carotid bulb without associated hemodynamically significant stenosis (less than 50%). 2. Questionable luminal irregularities in the left M1 segment suggestive of atherosclerotic disease. 3. Otherwise, no cervical or intracranial vascular abnormalities. Dictated By: Ira Darling MD, 09/05/2018 11:47 AM I have reviewed the study and agree with the findings in this report. Signed By: Lucia Norris MD, 09/05/2018 11:53 AM Narrative Performed At Exams: Cervical and Intracranial CT angiograms. SMS History: stroke Comparison studies: Head CT 09/04/2018. Technique: Axial CT scans obtained from the skull base to the vertex without and with contrast. Axial images obtained through the cervical and intracranial regions during injection of IV contrast. For optimization of anatomic evaluation, multiplanar reconstruction, maximum intensity projections, and advanced 3-D off-line postprocessing were obtained on a dedicated stand-alone workstation under the direct supervision of the interpreting physician. IV [id number] cc of Omnipaque. Complication: None Radiation dose: Total DLP: 2265 mGy*cm Estimated Effective Dose: DLP x 0.031 mSv FINDINGS: Head CT's without and with contrast: See impression. Cervical CTA: If present, stenosis of the carotid bulbs is measured based on NASCET criteria, i.e. area of maximal stenosis compared to the cervical ICA distal to the bulb. Aortic arch: Patent with moderate atherosclerotic calcifications. Common Carotid arteries: Patent, no abnormalities. Carotid Bulbs: Soft and calcified atherosclerotic plaque bilaterally, without hemodynamically significant stenosis (less than 50%). Internal Carotid arteries: Patent, no abnormalities. Vertebral arteries: Patent, no abnormalities. Intracranial CTA: Anterior Circulation: Internal carotid arteries: Calcified atherosclerotic lack in the bilateral carotid siphons with mild narrowing. Middle cerebral arteries: Minimal nonspecific irregularity of the left MCA M1 segment without associated stenoses. Otherwise patent bilaterally. Anterior cerebral arteries: Patent with no abnormalities. Vertebrobasilar Circulation: Vertebral arteries: Patent, no abnormalities. Basilar artery: Patent, no abnormalities. Posterior cerebral arteries:Patent, no abnormalities. Normal Variants: Acom: Patent Pcoms:Patent on the right, not clearly seen on the left. Vertebral arteries: Co-dominant. Cervical spine: C3-C4: Disc osteophyte complex formation with small central disc protrusion, bilateral uncovertebral and facet arthrosis. Moderate canal and severe foraminal stenosis. C4-C5: Asymmetric to left disc osteophyte, uncovertebral and facet arthroses. Mild spinal canal and severe left foraminal stenosis. Mild right foraminal stenosis. C5-C6: Disc osteophyte complex formation asymmetric to the left, bilateral uncovertebral and facet arthroses, severe spinal canal and foraminal stenosis on the left. Moderate right foraminal stenosis. C6-C7: Prominent disc osteophyte complex formation asymmetric to the right, bilateral uncovertebral and facet arthrosis. Severe spinal canal and bilateral foraminal stenosis. Procedure Note Interface, Rad/Mammog In - 09/05/2018 11:59 AM CDT Exams: Cervical and Intracranial CT angiograms. History: stroke Comparison studies: Head CT 09/04/2018. Technique: Axial CT scans obtained from the skull base to the vertex without and with contrast. Axial images obtained through the cervical and intracranial regions during injection of IV contrast. For optimization of anatomic evaluation, multiplanar reconstruction, maximum intensity projections, and advanced 3-D off-line postprocessing were obtained on a dedicated stand-alone workstation under the direct supervision of the interpreting physician. IV Contrast 100 cc of Omnipaque. Complication: None Radiation dose: Total DLP: 2265 mGy*cm Estimated Effective Dose: DLP x 0.031 mSv FINDINGS: Head CT's without and with contrast: See impression. Cervical CTA: If present, stenosis of the carotid bulbs is measured based on NASCET criteria, i.e. area of maximal stenosis compared to the cervical ICA distal to the bulb. Aortic arch: Patent with moderate atherosclerotic calcifications. Common Carotid arteries: Patent, no abnormalities. Carotid Bulbs: Soft and calcified atherosclerotic plaque bilaterally, without hemodynamically significant stenosis (less than 50%). Internal Carotid arteries: Patent, no abnormalities. Vertebral arteries: Patent, no abnormalities. Intracranial CTA: Anterior Circulation: Internal carotid arteries: Calcified atherosclerotic lack in the bilateral carotid siphons with mild narrowing. Middle cerebral arteries: Minimal nonspecific irregularity of the left MCA M1 segment without associated stenoses. Otherwise patent bilaterally. Anterior cerebral arteries: Patent with no abnormalities. Vertebrobasilar Circulation: Vertebral arteries: Patent, no abnormalities. Basilar artery: Patent, no abnormalities. Posterior cerebral arteries: Patent, no abnormalities. Normal Variants: Acom: Patent Pcoms:Patent on the right, not clearly seen on the left. Vertebral arteries: Co-dominant. Cervical spine: C3-C4: Disc osteophyte complex formation with small central disc protrusion, bilateral uncovertebral and facet arthrosis. Moderate canal and severe foraminal stenosis. C4-C5: Asymmetric to left disc osteophyte, uncovertebral and facet arthroses. Mild spinal canal and severe left foraminal stenosis. Mild right foraminal stenosis. C5-C6: Disc osteophyte complex formation asymmetric to the left, bilateral uncovertebral and facet arthroses, severe spinal canal and foraminal stenosis on the left. Moderate right foraminal stenosis. C6-C7: Prominent disc osteophyte complex formation asymmetric to the right, bilateral uncovertebral and facet arthrosis. Severe spinal canal and bilateral foraminal stenosis. IMPRESSION IMPRESSION: Head CT: No new acute intracranial abnormalities or changes when compared to head CT 09/04/2018. Persistent findings: 1. 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 2. 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 3. Moderate supratentorial white matter microvascular ischemic changes. 4. Moderate ventriculomegaly in the lateral and third ventricles with ex vacuo dilatation of the left lateral ventricular occipital horn slightly disproportionate to cerebral volume loss. CTA's 1. Atherosclerotic changes in the left greater than right carotid bulb without associated hemodynamically significant stenosis (less than 50%). 2. Questionable luminal irregularities in the left M1 segment suggestive of atherosclerotic disease. 3. Otherwise, no cervical or intracranial vascular abnormalities. Dictated By: Ira Darling MD, 09/05/2018 11:47 AM I have reviewed the study and agree with the findings in this report. Signed By: Lucia Norris MD, 09/05/2018 11:53 AM Performing Organization Address City/State/[place] Phone Number SMS VBG POC (09/05/2018 4:37 AM CDT) pH, Pardeep POC 7.40Comment: 7.33 - 7.43 BT MAIN-STATION 1 Physician Notified pCO2, Pardeep POC 37.7 (L) 38.0 - 50.0 BT MAIN-STATION 1 mm Hg pO2, Pardeep POC 36 (L) 50 - 75 mm Hg BT MAIN-STATION 1 Base Deficit, Pardeep 1 BT MAIN-STATION 1 POC HCO3, Pardeep POC 23.1 22.0 - 26.0 BT MAIN-STATION 1 mmol/L % Sat, Pardeep POC 69 60 - 85 % BT MAIN-STATION 1 Lactic Acid, Pardeep 0.98 0.4 - 2.0 BT MAIN-STATION 1 POC mmol/L Sample Type Pardeep BT MAIN-STATION 1 TCO2, PARDEEP POC 24 21 - 32 BT MAIN-STATION 1 mmol/L Performing Organization Address City/[facility]/Zipcode Phone Number MISYS BT MAIN-STATION 1 TROPONIN I (09/05/2018 4:09 AM CDT) Troponin I <0.03 <0.04 ng/mL BT MAIN-STATION 1 Specimen Blood Performing Organization Address City/[facility]/Zipcode Phone Number MISYS BT MAIN-STATION 1 XRAY CHEST 2 VIEWS (09/05/2018 3:20 AM CDT) Impressions Performed At IMPRESSION: SMS Right lower lobe atelectasis. Otherwise, no acute thoracic abnormality. A "PRELIMINARY" report was made available via Tuee at the time of dictation by the resident indicated below. If the report is described as "FINALIZED" it indicates the attending/staff radiologist below has reviewed the images and agrees with the resident's interpretation. Dictated By: Javid Salamanca MD, 09/05/2018 3:29 AM I have reviewed the study and agree with the findings in this report. Signed By: Mika Abarca MD, 09/05/2018 6:32 AM Narrative Performed At EXAMINATION:XRAY CHEST 2 VIEWS, Frontal and lateral SMS INDICATION: Rule out pneumonia COMPARISON:None FINDINGS: TUBES/LINES:None LUNGS:The right lower lobe linear airspace opacity, which likely represents atelectasis. PLEURA:No effusions or pneumothorax. HEART/MEDIASTINUM:Normal cardiomediastinal silhouette. MUSCULOSKELETAL:No acute findings. Surgical clips project within the right lateral and posterior soft tissue. UPPER ABDOMEN: Normal Procedure Note Interface, Rad/Mammog In - 09/05/2018 6:37 AM CDT EXAMINATION: XRAY CHEST 2 VIEWS, Frontal and lateral INDICATION: Rule out pneumonia COMPARISON: None FINDINGS: TUBES/LINES: None LUNGS: The right lower lobe linear airspace opacity, which likely represents atelectasis. PLEURA: No effusions or pneumothorax. HEART/MEDIASTINUM: Normal cardiomediastinal silhouette. MUSCULOSKELETAL: No acute findings. Surgical clips project within the right lateral and posterior soft tissue. UPPER ABDOMEN: Normal IMPRESSION IMPRESSION: Right lower lobe atelectasis. Otherwise, no acute thoracic abnormality. A "PRELIMINARY" report was made available via Tuee at the time of dictation by the resident indicated below. If the report is described as "FINALIZED" it indicates the attending/staff radiologist below has reviewed the images and agrees with the resident's interpretation. Dictated By: Javid Salamanca MD, 09/05/2018 3:29 AM I have reviewed the study and agree with the findings in this report. Signed By: Mika Abarca MD, 09/05/2018 6:32 AM Performing Organization Address [facility] Phone Number SMS BLOOD CULTURE (09/05/2018 2:53 AM CDT)Only the most recent of2 resultswithin the time period is included. Spec Description Blood BT MICROBIOLOGY Order Comments None BT MICROBIOLOGY Culture No growth 5 days BT MICROBIOLOGY Report Status Final 09/10/2018 BT MICROBIOLOGY Specimen Blood bag - BLOOD Performing Organization Address [facility] Phone Number MISYS BT MICROBIOLOGY FUNGUS CULTURE,BLOOD (09/05/2018 2:43 AM CDT) Spec Description Peripheral line BT MICROBIOLOGY Order Comments None BT MICROBIOLOGY Culture No fungus isolated BT MICROBIOLOGY after 28 days Report Status Final 10/03/2018 BT MICROBIOLOGY Specimen Line - PERIPHERAL LINE Performing Organization Address [facility] Phone Number MISYS BT MICROBIOLOGY SYPHILIS SCREEN FOR INFECTION (09/04/2018 11:42 PM CDT) Treponemal Ab Negative BT DIAGNOSTIC IMMUNOLOGY Final Report Negative BT DIAGNOSTIC IMMUNOLOGY Performing Organization Address [facility] Phone Number MISYS BT DIAGNOSTIC IMMUNOLOGY FOLIC ACID (09/04/2018 11:42 PM CDT) Folic Acid 13.2 5.9 - 24.8 ng/mL BT MAIN-STATION 1 Specimen Blood Performing Organization Address [facility] Phone Number MISYS BT MAIN-STATION 1 VITAMIN B12 (09/04/2018 11:42 PM CDT) Vitamin B12 341 211 - 911 pg/mL BT MAIN-STATION 1 Specimen Blood Performing Organization Address [facility] Phone Number MISYS BT MAIN-STATION 1 CT HEAD W/O CONTRAST (09/04/2018 7:48 PM CDT) Impressions Performed At IMPRESSION: [facility] Moderate ventriculomegaly involving the lateral and third ventricles slightly disproportionate to the amount of cerebral volume loss may represent normal pressure hydrocephalus in appropriate clinical setting. Chronic findings: 1.Old left parietal-occipital craniotomy. 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 3.Moderate supratentorial white matter microvascular ischemic changes. 4.Exvacuo dilatation of the occipital horn of the left lateral ventricle. A "PRELIMINARY" report was made available via Tuee at the time of dictation by the resident indicated below. If the report is described as "FINALIZED" it indicates the attending/staff radiologist below has reviewed the images and agrees with the resident's interpretation. Dictated By: Javid Salamanca MD, 09/04/2018 8:57 PM I have reviewed the study and agree with the findings in this report. Signed By: Lori Munoz MD, 09/04/2018 9:50 PM Narrative Performed At Exam : Head CT without contrast SMS History: confusion Comparison studies: None. Technique: Axial scans were obtained from skull base to the vertex. Coronal and sagittal reconstructions obtained from the axial data. IV Contrast: None Complications: None Radiation Dose: Total DLP: 873 mGy*cm. Estimated Effective Dose: DLP x 0.0021 mSv FINDINGS: Scalp/Skull: Postsurgical changes from prior left parieto-occipital craniotomy. Brain sulci: Appropriate for patient's age. Ventricles: Mild ex vacuo dilatation of the occipital horn of the left lateral ventricle.There is ventriculomegaly with enlargement of the lateral and third ventricles. Extra-axial spaces: No masses or fluid collections. Parenchyma: Confluent hypodensities in the supratentorial and periventricular white matter are nonspecific small vessel ischemic changes. 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 No masses, hemorrhage or acute cortical insults Dural sinuses:No abnormal densities. Sellar/Suprasellar region: Intact. Skull base and Craniocervical junction: Intact . Procedure Note Interface, Rad/Mammog In - 09/04/2018 9:55 PM CDT Exam : Head CT without contrast History: confusion Comparison studies: None. Technique: Axial scans were obtained from skull base to the vertex. Coronal and sagittal reconstructions obtained from the axial data. IV Contrast: None Complications: None Radiation Dose: Total DLP: 873 mGy*cm. Estimated Effective Dose: DLP x 0.0021 mSv FINDINGS: Scalp/Skull: Postsurgical changes from prior left parieto-occipital craniotomy. Brain sulci: Appropriate for patient's age. Ventricles: Mild ex vacuo dilatation of the occipital horn of the left lateral ventricle.There is ventriculomegaly with enlargement of the lateral and third ventricles. Extra-axial spaces: No masses or fluid collections. Parenchyma: Confluent hypodensities in the supratentorial and periventricular white matter are nonspecific small vessel ischemic changes. 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 No masses, hemorrhage or acute cortical insults Dural sinuses: No abnormal densities. Sellar/Suprasellar region: Intact. Skull base and Craniocervical junction: Intact . IMPRESSION IMPRESSION: Moderate ventriculomegaly involving the lateral and third ventricles slightly disproportionate to the amount of cerebral volume loss may represent normal pressure hydrocephalus in appropriate clinical setting. Chronic findings: 1. 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 2. 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 3. Moderate supratentorial white matter microvascular ischemic changes. 4. Exvacuo dilatation of the occipital horn of the left lateral ventricle. A "PRELIMINARY" report was made available via Tuee at the time of dictation by the resident indicated below. If the report is described as "FINALIZED" it indicates the attending/staff radiologist below has reviewed the images and agrees with the resident's interpretation. Dictated By: Javid Salamanca MD, 09/04/2018 8:57 PM I have reviewed the study and agree with the findings in this report. 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 Measurements IntervalsAxis Rate: 92 P: 61 WV: 160QRS: 3 QRSD: 88 T: 31 QT: 340 [id number] Interpretive Statements SINUS RHYTHM Reviewed by Electronically Signed On 09-04-18 19:07:19 CDT by Rishabh King M.D. Performing Organization Address [facility] Phone Number SMS BMP POC (09/04/2018 6:26 PM CDT) CO2 POC 28 21 - 32 mmol/L [facility] 1 Chloride POC 103 98 - 107 mmol/L [facility] 1 Potassium POC 4.0 3.50 - 5.10 BT [facility] 1 mmol/L Sodium POC 142 136 - 145 mmol/L [facility] 1 Glucose POC 97 74 - 106 mg/dL [facility] 1 Urea Nitrogen POC 12 7 - 18 mg/dL [facility] 1 Creatinine POC 1.0 0.6 - 1.3 mg/dL [facility] 1 Calcium Ionized POC 1.31 (H) 1.15 - 1.29 [facility] 1 mmol/L Hemoglobin POC 14.6 14.0 - 18.0 g/dL [facility] 1 Hematocrit POC 43.0 40.0 - 54.0 % [facility] 1 GFR, Estimated >60 mL/min/1.73 m2 [facility] 1 GFR, Estim, Afr-Am >60 mL/min/1.73 m2 [facility] 1 Performing Organization Address [facility] Phone Number MISYS [facility] 1 TSH (09/04/2018 6:15 PM CDT) TSH 2.05 0.57 - 3.74 uIU/mL [facility] 1 Specimen Blood Performing Organization Address [facility] Phone Number MISYS [facility] 1 LIVER PROFILE (09/04/2018 6:15 PM CDT) T Protein 6.6 6.0 - 8.3 g/dL [facility] 1 Albumin 4.6 4.2 - 5.5 g/dL [facility] 1 T Bilirubin 0.8 0.2 - 1.2 mg/dL [facility] 1 Alk Phos 107 (H) 34 - 104 U/L [facility] 1 AST 15 13 - 39 U/L BT [facility] 1 ALT 13 7 - 52 U/L BT [facility] 1 D Bilirubin 0.2 0.0 - 0.2 mg/dL [facility] 1 Specimen Blood Performing Organization Address [facility] Phone Number MISYS [facility] 1 HIV-1/HIV-2 DIAGNOSTIC/SYMPTOMATIC (09/04/2018 6:15 PM CDT) HIV-1/HIV-2 Negative NEG [facility] 3 Specimen Blood Performing Organization Address City/State/Zipcode Phone Number [place] [facility] 3 AMMONIA (09/04/2018 6:15 PM CDT) Ammonia 35 16 - 53 umol/L [facility] 1 Specimen Blood Performing Organization Address City/[facility]/Zipcode Phone Number [place] [facility] 1 after 03/31/2018 Insurance Payer Benefit Plan / Subscriber ID Effective Dates Phone Address Type Group MEDICARE MEDICARE PART A xxxxxxxxxxx 2015-Present [phone] [id number] [place] [address] [employer] NATIONAL xxxxxxxxxx 2018-[facility] [phone] [address] [place] [address] Advance Directives Patient has advance care planning documents, and code status on file. For more information, please contact:[address] [address] Code Status Date Activated Date Inactivated Comments Full Code 09/05/2018 2:29 AM 09/10/2018 6:00 PM
--- OUTSIDE RECORDS SUMMARY | 2019-04-01 20:55 | XMS REPORT | Clinical Summary ---
:1950 Author Organization [facility] Address [address] [place] [address] Care Team Providers Name Role Phone Jose Sevilla MD Primary Care Provider Allergies No Known Allergies Medications Medication Sig Dispensed Refills Start Date End Date Status atorvastatin Take 40 mg by 0 Active (LIPITOR) 40 MG mouth daily. tablet lisinopril Take 10 mg by 0 Active (PRINIVIL,ZESTRIL) mouth daily. 5 mg tablet Hold sBP,110 or hr,60 amLODIPine Take 5 mg by 0 Active (NORVASC) 5 mg mouth daily. tablet Hold sbp <110 or hr < 60 famotidine (PEPCID) Take 20 mg by 0 Active 20 MG tablet mouth 2 (two) times a day. QUEtiapine Take 50 mg by 0 Active (SEROquel) 25 MG mouth tablet nightly. donepezil (ARICEPT) Take 1 tablet 30 tablet 0 12/11/2018 12/11/2019 Active 5 MG tablet (5 mg total) by mouth nightly. donepezil (ARICEPT) Take 1 tablet 30 tablet 3 12/11/2018 12/11/2019 Active 10 MG tablet (10 mg total) by mouth nightly. aspirin (ECOTRIN) Take 81 mg by 0 12/11/2018 Discontinued 81 MG enteric mouth daily. coated tablet escitalopram Take 1 tablet 30 tablet 2 12/11/2018 03/11/2019 (LEXAPRO) 10 MG (10 mg total) tablet by mouth daily for 90 days. Active Problems Problem Noted Date Altered mental status 10/19/2018 Encounters Date Type Specialty Care Team Description 03/20/2019 Documentation Neurology Bill Acosta, No Show 12/18/2018 Telephone Neurology Joellen Bingham MA 12/11/2018 Office Visit Neurology Bill Acosta, Cerebrovascular disease ( Primary Dx); Vascular dementia with behavior disturbance 10/19/2018 - Hospital Encounter General Internal [place], Altered mental status, 10/21/2018 Medicine MD Devon unspecified altered Bill Acosta, mental status type (Primary Dx) Servando Rico MD Mohammad, Muneeb, MD Sajja, Naveen, MD after 03/31/2018 Social History Tobacco Use Types Packs/Day Years Used Date Never Smoker Smokeless Tobacco: Never Used Alcohol Use Drinks/Week oz/Week Comments No Alcohol Habits Answer Date Recorded How often do you have a drink containing alcohol? Never 10/19/2018 How many drinks containing alcohol do you have on a typical Not asked day when you are drinking? How often do you have six or more drinks on one occasion? Not asked Sex Assigned at Date Recorded Not on file Job Start Date Occupation Industry Not on file Not on file Not on file Travel History Travel Start Travel End No recent travel history available. Last Filed Vital Signs Vital Sign Reading Time Taken Blood Pressure 148/70 12/11/2018 3:33 PM [employer] [employer] [facility] Pulse 63 12/11/2018 3:33 PM [employer] [facility] Temperature 35.9 C (96.6 F) 10/21/2018 11:44 AM [employer] [facility] Respiratory Rate 18 10/21/2018 11:44 AM [employer] [facility] Oxygen Saturation 98% 10/21/2018 11:44 AM [employer] [facility] Inhaled Oxygen Concentration - - Weight 74.4 kg (164 lb) 12/11/2018 3:33 PM [employer] [facility] Height 175.3 cm (5' 9") 12/11/2018 3:33 PM [employer] [facility] Body Mass Index 24.22 12/11/2018 3:33 PM [employer] [facility] Plan of Treatment Health Maintenance Due Date Last Done Comments COLON CANCER SCREENING 2000 SHINGLES VACCINES (#1) 2000 65+ PNEUMOCOCCAL VACCINE (1 of 2 - PCV13) 2015 PNEUMOCOCCAL POLYSACCHARIDE VACCINE AGE 65 AND OVER 2015 INFLUENZA VACCINE 06/18/2019 Procedures Procedure Name Priority Date/Time Associated Comments Diagnosis EEG AWAKE/DROWSY LESS Routine 10/20/2018 1:05 Results for this THAN 41 MIN PM [employer] [facility] procedure are in the results section. ESTIMATED GFR Routine 10/20/2018 4:03 Results for this AM [employer] [facility] procedure are in the results section. VITAMIN B12 LEVEL Routine 10/20/2018 4:03 Results for this AM [employer] [facility] procedure are in the results section. HC COMPLETE BLD COUNT Routine 10/20/2018 4:03 Results for this W/AUTO DIFF AM [employer] [facility] procedure are in the results section. HEMOGLOBIN A1C Routine 10/20/2018 4:03 Results for this AM [employer] [facility] procedure are in the results section. LIPID PANEL Routine 10/20/2018 4:03 Results for this AM [employer] [facility] procedure are in the results section. BASIC METABOLIC PANEL Routine 10/20/2018 4:03 Results for this AM [employer] [facility] procedure are in the results section. MRI BRAIN W WO CONTRAST STAT 10/19/2018 7:59 Results for this PM [employer] [facility] procedure are in the results section. LACTIC ACID LEVEL STAT 10/19/2018 3:32 Results for this PM [employer] [facility] procedure are in the results section. URINALYSIS SCREEN AND STAT 10/19/2018 3:19 Results for this MICROSCOPY, WITH REFLEX PM [employer] [facility] procedure are in TO CULTURE the results section. URINE CULTURE STAT 10/19/2018 3:19 Results for this PM [employer] [facility] procedure are in the results section. CT ANGIOGRAM NECK W WO STAT 10/19/2018 2:16 Results for this CONTRAST PM [employer] [facility] procedure are in the results section. CT ANGIOGRAM HEAD W WO STAT 10/19/2018 2:15 Results for this CONTRAST PM [employer] [facility] procedure are in the results section. XR CHEST 1 VW PORTABLE STAT 10/19/2018 2:10 Results for this PM [employer] [facility] procedure are in the results section. ECG 12-LEAD STAT 10/19/2018 1:53 Results for this PM [employer] [facility] procedure are in the results section. CT STROKE BRAIN WO STAT 10/19/2018 1:52 Results for this CONTRAST PM [employer] [facility] procedure are in the results section. ESTIMATED GFR STAT 10/19/2018 1:40 Results for this PM [employer] [facility] procedure are in the results section. AMMONIA LEVEL STAT 10/19/2018 1:40 Results for this PM [employer] [facility] procedure are in the results section. THYROID STIMULATING STAT 10/19/2018 1:40 Results for this HORMONE PM [employer] [facility] procedure are in the results section. B NATRIURETIC PEPTIDE STAT 10/19/2018 1:40 Results for this PM [employer] [facility] procedure are in the results section. TROPONIN STAT 10/19/2018 1:40 Results for this PM [employer] [facility] procedure are in the results section. LACTIC ACID LEVEL STAT 10/19/2018 1:40 Results for this PM [employer] [facility] procedure are in the results section. COMPREHENSIVE METABOLIC STAT 10/19/2018 1:40 Results for this PANEL PM [employer] [facility] procedure are in the results section. PROTHROMBIN TIME WITH STAT 10/19/2018 1:40 Results for this INR PM [employer] [facility] procedure are in the results section. PARTIAL THROMBOPLASTIN STAT 10/19/2018 1:40 Results for this TIME (PTT) PM [employer] [facility] procedure are in the results section. HC COMPLETE BLD COUNT STAT 10/19/2018 1:40 Results for this W/AUTO DIFF PM [employer] [facility] procedure are in the results section. ECG ED PRELIMINARY Routine 10/19/2018 1:34 Results for this INTERPRETATION PM [employer] [facility] procedure are in the results section. after 03/31/2018 Results EEG (routine) (10/20/2018 1:05 PM [employer] [facility]) Narrative Performed At Date of Service: October 20, 2018. [facility] DEPARTMENT OF PATHOLOGY AND Date of EEG interpretation: October 20, 2018. [facility] Routine Inpatient Electroencephalogram Report History: 68 y.o. male with a history of fall with hemorrhage evaluated for underlying cerebral activity and epileptic seizures. Technical Description: The record consists of a greater than 20 minute digitally recorded multi-montage EEG with 21 electrodes placed according to the International 10/20 system.An EKG strip was recorded continuously.True eye leads were not employed.True temporal leads were not employed. EEG Description: When maximally aroused, the awake background was characterized by a well-developed 8-9 Hz, 20 to 40 microvolts posterior rhythm better visualized over the right hemisphere..The patient becomes drowsy over the course of the recording as evidenced by the dropout of the posterior rhythm and the emergence of a diffuse 2 to 7 Hz, 40 to 60 microvolts irregular slow activity.Continuous polymorphic delta activity was observed over the left posterior temporal regions.No definitive epileptiform discharges were seen.No electrographic seizures were recorded. Sleep Recording: Sleep was not recorded. Activation Procedures: Hyperventilation was not performed. Photic stimulation utilizing flash frequencies ranging from 5 to 30 Hz did not elicit any paroxysmal discharges. EEG Interpretation:This was an abnormal awake and drowsy EEG. 1.Polymorphic delta, continuous, left posterior temporal. 2.Background slow. Clinical Correlation: Findings are consistent with: 1.A structural abnormality over the left posterior temporal regions. 2.A mild global cerebral dysfunction, nonspecific in etiology. Performing Organization Address City/[facility]/Zipcode Phone Number [facility] DEPARTMENT OF PATHOLOGY [id number] [place] [address] AND [facility] Estimated GFR (10/20/2018 4:03 AM [employer] [facility])Only the most recent of2 resultswithin the time period is included. Estimated GFR >=90 mL/min/1.73 m2 [facility] Comment: [facility] CatergoryUnitsInterpretation G1 >=90 Normal or high G2 60-89Mildly decreased [id number] to moderately decreased A9c10-24Tjgxpyufpw to severely decreased G4 15-29Severely decreased G5 <15Kidney failure The eGFR was calculated using the Chronic Kidney Disease Epidemiology Collaboration (CKD-EPI) equation. Interpretation is based on recommendations of the National Kidney Foundation-Kidney Disease Outcomes Quality Initiative (NKF-KDOQI) published in 2014. Specimen Plasma specimen Performing Organization Address City/[facility]/Zipcode Phone Number [facility] DEPARTMENT OF PATHOLOGY [id number] [place] [address] AND [facility] [id number] [place] [address] HOSPITAL CBC with platelet and differential (10/20/2018 4:03 AM [employer] [facility])Only the most recent of2 resultswithin the time period is included. WBC 8.1 4.5 - 11.0 k/uL [facility] RBC 4.46 4.40 - 6.00 m/uL [facility] HGB 13.9 (L) 14.0 - 18.0 g/dL [facility] HCT 39.9 (L) 41.0 - 51.0 % [facility] MCV 89.5 82.0 - 100.0 fL [facility] MCH 31.2 27.0 - 34.0 pg [facility] MCHC 34.8 31.0 - 37.0 g/dL [facility] RDW - SD 40.9 37.0 - 55.0 fL [facility] MPV 11.2 (H) 6.9 - 11.0 fL [facility] Platelet count 132 (L) 150 - 400 K/uL [facility] Nucleated RBC 0.00 /100 WBC [facility] Neutrophils 71.5 (H) 39.0 - 69.0 % [facility] Lymphocytes 17.6 (L) 25.0 - 45.0 % [facility] Monocytes 10.1 (H) 0.0 - 10.0 % [facility] Eosinophils 0.0 0.0 - 5.0 % [facility] Basophils 0.4 0.0 - 1.0 % [facility] Immature granulocytes 0.4 0.0 - 1.0 % [facility] Specimen Blood Performing Organization Address City/State/Zipcode Phone Number [facility] DEPARTMENT OF PATHOLOGY [id number] [place] [address] Hemoglobin A1c (10/20/2018 4:03 AM [employer] [facility]) Hemoglobin A1C 5.3 4.0 - 6.0 % [facility] Comment: HOSPITAL Less than 6% - Goal of therapy for Type II Diabetes Less than 7%-Goal of therapy for Type I Diabetes Less than 8%-Acceptable control for Type I or Type II Diabetes Greater than 8%-Unacceptable control; action indicated. (ADA94) Specimen Blood Performing Organization Address City/[facility]/Zipcode Phone Number [facility] DEPARTMENT OF PATHOLOGY [id number] [place] [address] Vitamin B12 level (10/20/2018 4:03 AM [employer] [facility]) Vitamin B12 459 211 - 946 pg/mL [facility] Comment: Significant overlap exists between normal and deficiency states. However, most patients with deficiencies will have Serum B12 <200 pg/mL. Specimen Serum Performing Organization Address City/State/Zipcode Phone Number [facility] DEPARTMENT OF PATHOLOGY AND [address] [place] [address] [place] [address] Lipid panel (10/20/2018 4:03 AM [employer] [facility]) Cholesterol 147 0 - 199 mg/dL [facility] Triglycerides 117 0 - 149 mg/dL [facility] HDL cholesterol 34 (L) 40 - 99,999 [facility] mg/dL [facility] LDL cholesterol 98 0 - 99 mg/dL [facility] Lipid panel See below [facility] interpretation Comment: [facility] Total Cholesterol (mg/dL) <200 Desirable 896-416Wbgbiqahfi-fcad >=240High Triglycerides (mg/dL) <150 Normal 960-137Fhocosjzwm-sefp 200-499High >=500Very high HDL Cholesterol (mg/dL) <40Low (male) <50Low (female) LDL Cholesterol (mg/dL) <100 Optimal 100-129Near or above optimal 028-559Goezowgmbh-bzaj 160-189High >=190Very high Risk Catergories that modify LDL goals. Risk CatergoriesLDL goal (mg/dL) CHD and CHD risk equivalent<100 (10-year risk >20%) Multiple (2+) risk factors <130 (10-year risk=<20%) 0-1 risk factors <160 (<10-year risk) Defining levels of lipids in metabolic syndrome Triglycerides>=150 mg/dL HDL Cholesterol Men<40 mg/dL Women<50 mg/dL Non-HDL cholesterol is a second target for therapy in persons with high triglycerides (>=200 mg/dL) Specimen Plasma specimen Performing Organization Address City/State/Zipcode Phone Number [facility] DEPARTMENT OF PATHOLOGY [address] [place] [address] AND GENOMIC MEDICINE [facility] [address] Basic metabolic panel (10/20/2018 4:03 AM [facility] [facility]) Sodium 141 135 - 148 mEq/L [facility] Potassium 4.1 3.5 - 5.0 mEq/L [facility] Chloride 108 98 - 112 mEq/L [facility] CO2 21 (L) 24 - 31 mEq/L [facility] Anion gap 12@ANIO 7 - 15 mEq/L [facility] BUN 8 8 - 23 mg/dL [facility] Creatinine 0.82 0.70 - 1.20 mg/dL [facility] Glucose 112 (H) 65 - 99 mg/dL [facility] Calcium 9.4 8.8 - 10.2 mg/dL [facility] Specimen Plasma specimen Performing Organization Address City/State/Zipcode Phone Number [facility] DEPARTMENT OF PATHOLOGY [address] [place] [address] AND GENOMIC MEDICINE [facility] [address] MRI Brain W Wo Contrast (10/19/2018 7:59 PM [employer] [facility]) Narrative Performed At EXAMINATION: MRI BRAIN W WO CONTRAST [facility] CLINICAL HISTORY: Confusion. Abnormal CT r o bleed COMPARISON:CT brain from earlier today TECHNIQUE: Multiplanar and multisequence MRI imaging of the brain was obtained with and without contrast. FINDINGS: There is no evidence of acute infarct, intracranial hemorrhage or mass, hydrocephalus or midline shift. There is left parietal occipital craniotomy with chronic appearing changes in the left parietal oc cipital lobes including old hemorrhage and gliosis with compensatory enlargement of the adjacent extra axial space and ventricles. There is hemosiderin staining along the cortex in the posterior cerebral hemispheres. There is a small amount of hemorrhage lining the posterior left lateral ventricle. There is nonspecific enlargement of the ventricles and extra axial space and white matter changes elsewhere in the brain. There are no areas of abnormal enhancement in the brain of significance. There is some linear areas of enhancement in the areas of chronic changes in the left parietal occipital lobe and overlying pachymeninges. There is mucosal thickening and partial opacification of the sinuses. The nasal septum is slightly deviated. IMPRESSION: No definite acute findings in the brain. Chronic changes in the brain including old hemorrhage. Mild nonspecific mastoiditis. [facility]-[id number] Procedure Note Hm Interface, Radiology Results Incoming - 10/19/2018 8:10 PM [employer] [facility] EXAMINATION: MRI BRAIN W WO CONTRAST CLINICAL HISTORY: Confusion. Abnormal CT r o bleed COMPARISON: CT brain from earlier today TECHNIQUE: Multiplanar and multisequence MRI imaging of the brain was obtained with and without contrast. FINDINGS: There is no evidence of acute infarct, intracranial hemorrhage or mass, hydrocephalus or midline shift. There is left parietal occipital craniotomy with chronic appearing changes in the left parietal occipital lobes including old hemorrhage and gliosis with compensatory enlargement of the adjacent extra axial space and ventricles. There is hemosiderin staining along the cortex in the posterior cerebral hemispheres. There is a small amount of hemorrhage lining the posterior left lateral ventricle. There is nonspecific enlargement of the ventricles and extra axial space and white matter changes elsewhere in the brain. There are no areas of abnormal enhancement in the brain of significance. There is some linear areas of enhancement in the areas of chronic changes in the left parietal occipital lobe and overlying pachymeninges. There is mucosal thickening and partial opacification of the sinuses. The nasal septum is slightly deviated. IMPRESSION: No definite acute findings in the brain. Chronic changes in the brain including old hemorrhage. Mild nonspecific mastoiditis. [facility]-[id number] Performing Organization Address City/[facility]/Zipcode Phone Number [facility] [address] [place] [address] Lactic acid level (10/19/2018 3:32 PM [employer] [facility])Only the most recent of2 resultswithin the time period is included. Lactic acid 1.9 0.5 - 2.2 mmol/L [facility] Specimen Plasma specimen Performing Organization Address City/[facility]/Zipcode Phone Number [facility] DEPARTMENT OF PATHOLOGY [address] [place] [address] AND GENOMIC MEDICINE [facility] [address] Urinalysis screen and microscopy, with reflex to culture (10/19/2018 3:19 PM [employer] [facility]) Specimen site Clean catch [facility] Color, UA Yellow [facility] Appearance, UA Clear [facility] Specific gravity, UA 1.044 (H) 1.001 - 1.030 [facility] pH, UA 6.0 5.0 - 9.0 [facility] Protein, UA Negative Negative [facility] Glucose, UA Negative Negative [facility] Ketones, UA Negative Negative [facility] Bilirubin, UA Negative Negative [facility] Blood, UA Negative Negative [facility] Nitrite, UA Negative Negative [facility] Urobilinogen, UA <2.0 <2.0 E.U./dL [facility] Leukocyte esterase, UA Negative Negative [facility] WBC, UA 1 0 - 1 /HPF [facility] RBC, UA <1 0 - 5 /HPF [facility] Bacteria, UA None seen None seen [facility] Yeast, UA None seen [facility] Yeast with pseudohyphae, UA None seen [facility] Hyaline casts, UA 0-2 /LPF [facility] Specimen Urine Performing Organization Address City/[facility]/Zipcode Phone Number [facility] DEPARTMENT OF PATHOLOGY [phone] [place] [address] AND [facility] [id number] [place] [address] Urine culture (10/19/2018 3:19 PM [employer] [facility]) Urine culture SEE COMMENTComment: Bacteriuria [facility] screen negative. HOSPITAL Performing Organization Address [facility] Services[facility] Phone Number [facility] DEPARTMENT OF PATHOLOGY [phone] [place] [address] CTA Neck W Wo Contrast (10/19/2018 2:16 PM [employer] [facility]) Narrative Performed At EXAMINATION:CT ANGIOGRAM NECK W WO CONTRAST HM [facility] CLINICAL HISTORY:AMSfall onset 12 50 TECHNIQUE: CT angiography of the neck was performed using 1.25 mm thick axial slices and reviewed in multiple planes. Two and three dimensional multiplanar reformatted images were generated and submitted to PACS.3-D rendering was performed with physician participation and supervision. CT imaging was performed with iterative reconstruction technique and/or automated exposure control to reduce radiation dose. A total of 75 mL Omnipaque 300was injected intravenously. COMPARISON: None. FINDINGS: CTA of the neck demonstrates that the origins of the great vessels are widelypatent. Atherosclerosis of the aortic arch.Conventional arch anatomy.There is no evidence of significant extra cranial stenosis.Atherosclerosis of the the right carotid bifurcation and 20% stenosis of the right proximal internal carotid artery by NASCET criteria. Approximately 40% stenosis of the left proximal internal carotid artery by NASCET criteria. There is atherosclerosis and stenosis at the origin of the left vertebral artery. The left vertebral artery is mildly dominant. No aneurysm is seen. There are degenerative changes of the cervical spine. IMPRESSION: Less than 50% stenosis of the proximal internal carotid arteries by NASCET criteria. [facility]-[id number] Procedure Note Hm Interface, Radiology Results Incoming - 10/19/2018 2:49 PM [employer] [facility] EXAMINATION: CT ANGIOGRAM NECK W WO CONTRAST CLINICAL HISTORY: AMS fall onset 50 TECHNIQUE: CT angiography of the neck was performed using 1.25 mm thick axial slices and reviewed in multiple planes. Two and three dimensional multiplanar reformatted images were generated and submitted to PACS. 3-D rendering was performed with physician participation and supervision. CT imaging was performed with iterative reconstruction technique and/or automated exposure control to reduce radiation dose. A total of 75 mL Omnipaque 300 was injected intravenously. COMPARISON: None. FINDINGS: CTA of the neck demonstrates that the origins of the great vessels are widely patent. Atherosclerosis of the aortic arch. Conventional arch anatomy. There is no evidence of significant extra cranial stenosis. Atherosclerosis of the the right carotid bifurcation and 20% stenosis of the right proximal internal carotid artery by NASCET criteria. Approximately 40% stenosis of the left proximal internal carotid artery by NASCET criteria. There is atherosclerosis and stenosis at the origin of the left vertebral artery. The left vertebral artery is mildly dominant. No aneurysm is seen. There are degenerative changes of the cervical spine. IMPRESSION: Less than 50% stenosis of the proximal internal carotid arteries by NASCET criteria. [facility]-[id number] Performing Organization Address City/State/Zipcode Phone Number [facility] [address] [place] [address] CTA Head W Wo Contrast (10/19/2018 2:15 PM [employer] [facility]) Narrative Performed At EXAMINATION:CT ANGIOGRAM HEAD W WO CONTRAST RADIANT CLINICAL HISTORY:AMSfall onset 50 TECHNIQUE: CT angiography of the brain was performed and reviewed in multiple planes. Two and three dimensional multiplanar reformatted images were generated and submitted to PACS.3-D rendering was performed with physician participation and supervision. A total of 100 mL Omnipaque 300was injected intravenously. CT imaging was performed with iterative reconstruction technique and/or automated exposure control to reduce radiation dose. COMPARISON: None. FINDINGS: CTA of the [place] reveals no intracranial proximal large vessel occlusion. There is atherosclerosis of the intracranial internal carotid arteries with mild narrowing on the right. No CT-identifiable aneurysm is present. Conventional angiography is more sensitive for the detection of small aneurysms. Mildly dominant left vertebral artery. IMPRESSION: No intracranial proximal large vessel occlusion. [facility]-[id number] Procedure Note Interface, Radiology Results Incoming - 10/19/2018 2:42 PM [facility] [employer] EXAMINATION: CT ANGIOGRAM HEAD W WO CONTRAST CLINICAL HISTORY: AMS fall onset 12 50 TECHNIQUE: CT angiography of the brain was performed and reviewed in multiple planes. Two and three dimensional multiplanar reformatted images were generated and submitted to PACS. 3-D rendering was performed with physician participation and supervision. A total of 100 mL Omnipaque [address] imaging was performed with iterative reconstruction technique and/or automated exposure control to reduce radiation dose. COMPARISON: None. FINDINGS: CTA of the [place] reveals no intracranial proximal large vessel occlusion. There is atherosclerosis of the intracranial internal carotid arteries with mild narrowing on the right. No CT-identifiable aneurysm is present. Conventional angiography is more sensitive for the detection of small aneurysms. Mildly dominant left vertebral artery. IMPRESSION: No intracranial proximal large vessel occlusion. [facility]-[id number] Performing Organization Address [facility] Phone Number [employer] [address] [place] [address] XR Chest 1 Vw Portable (10/19/2018 2:10 PM [facility] [employer] [facility]AN) Narrative Performed At EXAMINATION:XR CHEST 1 VW PORTABLE RADIANT CLINICAL HISTORY:AMS COMPARISON:None IMPRESSION: An AP radiograph of the chest was submitted for interpretation. Bilateral lower lobe airspace disease, which may represent atelectasis, however, an underlying infectious process cannot be completely excluded. Mild pulmonary edema. No pleural effusion or pneumothorax. No midline shift. The mediastinal contours and cardiac silhouette are unremarkable. The bones are unremarkable. [facility]-[id number] Procedure Note Interface, Radiology Results Incoming - 10/19/2018 2:15 PM [employer] [facility] EXAMINATION: XR CHEST 1 VW PORTABLE CLINICAL HISTORY: AMS COMPARISON: None IMPRESSION: An AP radiograph of the chest was submitted for interpretation. Bilateral lower lobe airspace disease, which may represent atelectasis, however , an underlying infectious process cannot be completely excluded. Mild pulmonary edema. No pleural effusion or pneumothorax. No midline shift. The mediastinal contours and cardiac silhouette are unremarkable. The bones are unremarkable. [facility]-[id number] Performing Organization Address [facility] Phone Number [employer] [address] [place] [address] ECG 12 lead (10/19/2018 1:53 PM [facility] [employer] [facility]) Ventricular rate 92 [facility] Atrial rate 92 [facility] NV interval 182 [facility] QRSD interval 86 [facility] QT interval 370 [facility] QTC interval 457 [facility] P axis 1 42 [facility] QRS axis 1 -3 [facility] T wave axis 25 [facility] EKG impression Normal sinus rhythm-Normal H MUSE ECG-- Narrative Performed At Performing Organization Address City/State/Zipcode Phone Number [facility] MUSE [address] [place] [address] CT Stroke Brain Wo Contrast (10/19/2018 1:52 PM [employer] [facility]) Narrative Performed At EXAMINATION:CT STROKE BRAIN WO CONTRAST RADIANT CLINICAL HISTORY:fallacute AMS onset 12 50 Comparison: Technique: Routine unenhanced brain CT. CT imaging was performed with iterative reconstruction technique and/or automated exposure control to reduce radiation dose. Findings: Postsurgical changes of left craniotomy. There is encephalomalacia in the left occipital lobe with ex vacuo dilatation of the left occipital horn likely sequela of chronic insult. There is linear calcification which may reflect sequela of prior shunt. There may be a small extra-axial collection predominantly hypodense along the left occipital parietal convexity measuring 7 mm in maximal thickness, series 2 image 30, consider follow-up to ascertain stability. No definite acute intracranial hemorrhage, midline shift or herniation. No acute transcortical infarction. Probable chronic ischemic changes. Intracranial atherosclerosis. No hydrocephalus. No depressed calvarial fracture. Visualized orbits are unremarkable. Mild paranasal sinus mucosal thickening. Opacification of a few right mastoid air cells. Impression: Postsurgical changes of left craniotomy. There is encephalomalacia in the left occipital lobe with ex vacuo dilatation of the left occipital horn likely sequela of chronic insult. There is linear calcification which may reflect sequela of prior shunt. There may be a small extra-axial collection predominantly hypodense along the left occipital parietal convexity measuring 7 mm in maximal thickness, series 2 image 30, consider follow-up to ascertain stability. RESULT NOTIFICATION: These observations were discussed with and acknowledged by DEVON HUDDLESTON at 10/19/2018 2:01 PM. [facility]-[id number] Procedure Note Hm Interface, Radiology Results Incoming - 10/19/2018 2:12 PM [facility] [facility] EXAMINATION: CT STROKE BRAIN WO CONTRAST CLINICAL HISTORY: fall acute AMS onset 12 50 Comparison: Technique: Routine unenhanced brain CT. CT imaging was performed with iterative reconstruction technique and/or automated exposure control to reduce radiation dose. Findings: Postsurgical changes of left craniotomy. There is encephalomalacia in the left occipital lobe with ex vacuo dilatation of the left occipital horn likely sequela of chronic insult. There is linear calcification which may reflect sequela of prior shunt. There may be a small extra-axial collection predominantly hypodense along the left occipital parietal convexity measuring 7 mm in maximal thickness, series 2 image 30, consider follow-up to ascertain stability. No definite acute intracranial hemorrhage, midline shift or herniation. No acute transcortical infarction. Probable chronic ischemic changes. Intracranial atherosclerosis. No hydrocephalus. No depressed calvarial fracture. Visualized orbits are unremarkable. Mild paranasal sinus mucosal thickening. Opacification of a few right mastoid air cells. Impression: Postsurgical changes of left craniotomy. There is encephalomalacia in the left occipital lobe with ex vacuo dilatation of the left occipital horn likely sequela of chronic insult. There is linear calcification which may reflect sequela of prior shunt. There may be a small extra-axial collection predominantly hypodense along the left occipital parietal convexity measuring 7 mm in maximal thickness, series 2 image 30, consider follow-up to ascertain stability. RESULT NOTIFICATION: These observations were discussed with and acknowledged by DEVON HUDDLESTON at 10/19/2018 2:01 PM. [facility]-[id number] Performing Organization Address City/State/Zipcode Phone Number [facility] [address] [place] [address] Troponin (10/19/2018 1:40 PM [facility] [employer]) Troponin <0.30 0.00 - 0.30 ng/mL [facility] Comment: HOSPITAL 0.11 - 1.49 ng/mlMay indicate increased risk of acute coronary syndrome. >=1.5 ng/mlConsistent with acute myocardial infarction. The diagnostic value of a single normal or non-diagnostic result is questionable.Serial samples at 2-6 hour intervals are required to rule out acute myocardial injury. Specimen Plasma specimen Performing Organization Address City/[facility]/Zipcode Phone Number [facility] DEPARTMENT OF PATHOLOGY [address] [facility] [place] [address] Partial thromboplastin time, activated (10/19/2018 1:40 PM [facility] [employer]) PTT 31.9 23.0 - 36.0 sec [facility] Comment: [facility] PTT therapeutic range for unfractionated heparin is 61.0-112.0 seconds which corresponds to Anti-Xa 0.3-0.7 U/ml. Specimen Blood Performing Organization Address City/[facility]/Zipcode Phone Number [facility] DEPARTMENT OF PATHOLOGY [address] [place] [address] Prothrombin time with INR (10/19/2018 1:40 PM [facility] [employer] [facility]) Prothrombin time 13.6 11.5 - 14.5 sec [facility] INR 1.1 [facility] Comment: [facility] The International Normalized Ratio (INR) is a therapeutic monitoring tool for patients who are stable on oral anticoagulant therapy. An INR of 2.0-3.0 is suggested for deep vein thrombosis/pulmonary embolism. Specimen Blood Performing Organization Address [facility] Phone Number [facility] DEPARTMENT OF PATHOLOGY [address] [place] [address] Thyroid stimulating hormone (10/19/2018 1:40 PM [facility] [employer] DEAN) TSH 2.63 0.27 - 4.20 uIU/mL [facility] Specimen Plasma specimen Performing Organization Address City/[facility]/Zipcode Phone Number [facility] DEPARTMENT OF PATHOLOGY [address] [place] [address] B natriuretic peptide (10/19/2018 1:40 PM [facility] [employer] [facility]) BNP 5 0 - 100 pg/mL [facility] Specimen Blood Performing Organization Address City/[facility]/Zipcode Phone Number [facility] DEPARTMENT OF PATHOLOGY [address] [place] [address] [place] [address] HOSPITAL Ammonia level (10/19/2018 1:40 PM [facility] [employer] DE[facility]) Ammonia 28 16 - 60 umol/L [facility] Specimen Plasma specimen Performing Organization Address City/[facility]/Zipcode Phone Number [facility] DEPARTMENT OF PATHOLOGY [id number] [place] [address] Comprehensive metabolic panel (10/19/2018 1:40 PM [facility] [employer] [facility]AN) Sodium 138 135 - 148 mEq/L [facility] Potassium 3.8 3.5 - 5.0 mEq/L [facility] Chloride 101 98 - 112 mEq/L [facility] CO2 23 (L) 24 - 31 mEq/L [facility] Anion gap 14@ANIO 7 - 15 mEq/L [facility] BUN 10 8 - 23 mg/dL [facility] Creatinine 0.92 0.70 - 1.20 mg/dL [facility] Glucose 117 (H) 65 - 99 mg/dL [facility] Calcium 9.7 8.8 - 10.2 mg/dL [facility] Protein 7.0 6.3 - 8.3 g/dL [facility] Albumin 4.6 3.5 - 5.0 g/dL [facility] A/G ratio 1.9 0.7 - 3.8 [facility] Alkaline phosphatase 121 40 - 129 U/L [facility] AST 26 10 - 50 U/L [facility] ALT 23 5 - 50 U/L [facility] Total bilirubin 0.7 0.2 - 1.2 mg/dL [facility] Specimen Plasma specimen Performing Organization Address City/State/Zipcode Phone Number [facility] DEPARTMENT OF PATHOLOGY [id number] [place] [address] ECG ED Preliminary Interpretation - Not an Order (10/19/2018 1:34 PM [facility] [employer] [facility]) Narrative Performed At Devon Huddleston MD 10/19/20187:48 PM ECG ED Preliminary Interpretation - Not an Order Performed by: Devon Huddleston MD Authorized by: Devon Huddleston MD ECG reviewed by ED Physician in the absence of a community living instructor: yes Previous ECG: Previous ECG:Unavailable Interpretation: Interpretation: abnormal Rate: ECG rate:92 ECG rate assessment: normal Rhythm: Rhythm: sinus rhythm QRS: QRS axis:Left QRS intervals:Normal Conduction: Conduction: normal ST segments: ST segments:Non-specific T waves: T waves: non-specific Comments: Sinus rhythm, left axis deviation, nonspecific ST-T changes after 03/31/2018 Insurance Payer Benefit Plan / Group Subscriber ID Type Phone Address [employer] xxxxxxxxxx [facility] MEDICARE PART A AND B xxxxxxxxxxx Medicare [place], [place] [phone] (Home) [phone] [place], [place] 6 (Work) [address] Advance Directives Patient has advance care planning documents, and code status on file. For more information, please contact:Flakito Meyer[address] [place] [address] Code Status Date Activated Date Inactivated Comments DNR 10/19/2018 5:29 PM 10/21/2018 8:11 PM Code Status decision reached by: Legal Surrogate Name of Surrogate: Daughter Surrogate Relation: 3. Adult Child/Children
--- OUTSIDE RECORDS SUMMARY | 2019-04-01 20:56 | XMS REPORT | Clinical Summary ---
:1950 Author Organization [facility] Address [address] [place] [address] Care Team Providers Name Role Phone Unavailable Primary Care Provider Unavailable Allergies No Known Allergies Medications Medication Sig Dispensed Refills Start Date End Date Status atorvastatin (LIPITOR) Take 20 mg by 0 Active 20 MG tablet mouth daily. amLODIPine (NORVASC) Take 1 tablet 0 02/14/2018 02/14/2019 10 MG tablet (10 mg total) by mouth daily. lisinopril Take 1 tablet 0 02/14/2018 02/14/2019 (PRINIVIL,ZESTRIL) 20 (20 mg total) MG tablet by mouth daily. senna-docusate Take 1 tablet 0 02/14/2018 02/14/2019 (SENOKOT S) 8.6-50 mg by mouth 2 per tablet (two) times daily. metoprolol (TOPROL-XL) Take 1 tablet 0 02/14/2018 02/14/2019 100 MG 24 hr tablet (100 mg total) by mouth daily. Active Problems Problem Noted Date Essential hypertension 02/11/2018 Aspiration pneumonia 02/11/2018 Metabolic encephalopathy 02/11/2018 Oropharyngeal dysphagia 02/11/2018 ICH (intracerebral hemorrhage) 01/31/2018 Social History Tobacco Use Types Packs/Day Years Used Date Never Assessed Sex Assigned at Date Recorded Not on file Job Start Date Occupation Industry Not on file Not on file Not on file Travel History Travel Start Travel End No recent travel history available. Last Filed Vital Signs Not on file Plan of Treatment Not on file Implants Implanted Type Area Hazard Mitigation Officer Device Shelf Model / Identifier Expiration Serial / Date Lot Scr Un3 [employer] Self Drl 1.5x4mm [id number] - [id number] Fracture/ Left: RADHIKA: CRANIOMA [id number] / Implanted: Qty: 6 on 01/31/2018 by Dion Gruber MD [employer] / Plt Rigid 2h [id number] - [id number] Fracture/ Left: RADHIKA:CRANIOMA 53- [id number] / Implanted: Qty: 3 on 02/01/2018 by Dion Gruber MD [employer] / Cath Bactiseal Evd [id number] - [id number] Neuro Left: J &J:CODMAN & 2017 [id number] / Implanted: Qty: 1 on 02/01/2018 by Dion Gruber MD Head [facility] / [id number] Results Not on fileafter 03/31/2018 Insurance Payer Benefit Plan / Group Subscriber ID Type Phone Address MEDICARE MEDICARE A B xxxxxxxxxx Medicare [employer] GENERIC MEDICARE xxxxxxxxxx Medigap SUPPLEMENT/INDIVIDUAL SUPPLEMENT Advance Directives For more information, please contact:[address] [phone] Code Status Date Activated Date Inactivated Comments Full Code 01/31/2018 5:27 PM 02/14/2018 4:59 PM This code status was determined by: Patient
--- OUTSIDE RECORDS SUMMARY | 2019-04-01 20:58 | XMS REPORT | Continuity of Care Document ---
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 HOSPITAL D/C FU Active [facility] REQ BY BARRY 2 8 MONTHS DEIDRE BILLING Active [facility] LFLT #1327 8 [facility] ICH Active [facility] 8 [id number]/[id number] Active [facility] [id number]/[id number] 1 Aphasia following 03/31/2019 [facility] cerebral infarction Aspiration Active Problem 03/31/2019 [facility] pneumonia ICH (<span Active Problem 03/31/2019 [facility] ID="[id number]" >Confirmed</span> ) Essential Active Problem 03/31/2019 [facility] hypertension Expressive Active Problem 03/31/2019 [facility] aphasia 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 Encephalopathy, Active Problem 03/31/2019 [facility] metabolic Dysphagia, Active Problem 03/31/2019 [facility] oropharyngeal Nontraumatic 03/01/2018 [facility] intracerebral hemorrhage, unspecified Other symptoms 01/27/2019 [facility] and signs involving cognitive functions following cerebral infarction Dysphagia, 12/26/2018 [facility] unspecified Dysphagia 12/26/2018 [facility] following nontraumatic intracerebral hemorrhage 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 Aspirin 81 Mg Chew and Active [facility] Chewable Tablet swallow 1 018 Health tablet by mouth daily. Atorvastatin 40 Take 1 tablet Oral Active Rogers Mg Tablet by mouth at 018 Health bedtime nightly. Acetaminophen 325 mg, PO, Active [facility] PRN, 0 018 Refill(s) metoprolol 25 mg=1 tab, Active [facility] tartrate 25 mg PO, BID, 0 018 oral tablet Refill(s) donepezil 5 mg, 0.5 No Longer [facility] tab, Route: Active 018 PO, Drug form: TAB, Bedtime, Dosing Weight 65.818, kg, Start date: 02/25/18 21:00:00 CDT, Duration: 30 day, Stop date: 03/26/18 21:00:00 CDTNotes: (Same as: Aricept) 24 HR Nicotine =1 patch, Active [facility] 0.292 MG/HR TOP, Daily, X 018 Transdermal 7 day, # 7 Patch [Nicoderm patch, 0 C-Q] Refill(s) metoprolol 50 mg=1 tab, Active [facility] tartrate 50 mg PO, Q12H, # 018 oral tablet 60 tab, 1 Refill(s), Pharmacy: [facility] [id number] lisinopril 20 mg 20 mg=1 tab, Active [facility] oral tablet PO, Daily, # 018 30 tab, 1 Refill(s), Pharmacy: [facility] [id number] Famotidine 20 MG 20 mg=1 tab, Active [facility] Oral Tablet PO, BID, # 60 018 [Pepcid] tab, 1 Refill(s), Pharmacy: [facility] [id number] atorvastatin 20 20 mg=1 tab, Active [facility] mg oral tablet PO, Bedtime, 018 # 30 tab, 1 Refill(s) amLODIPine 10 mg 10 mg=1 tab, Active [facility] oral tablet PO, Daily, # 018 30 tab, 1 Refill(s), Pharmacy: [facility] [id number] donepezil 10 mg 10 mg=1 tab, Active [facility] oral tablet PO, Bedtime, 018 # 30 tab, 0 Refill(s), Pharmacy: [facility] [id number] Trazodone 100 mg=1 tab, Active [facility] Hydrochloride PO, Bedtime, 018 100 MG Oral # 30 tab, 1 Tablet Refill(s), Pharmacy: [facility] [id number] sertraline 50 mg 50 mg=1 tab, Active MH [facility] oral tablet PO, Daily, # 018 30 tab, 1 Refill(s), Pharmacy: [facility] [id number] Sertraline 25 mg, 0.5 Inactive [facility] tab, Route: 018 PO, Drug form: TAB, ONCE, Dosing Weight 65.818, kg, Start date: 02/25/18 11:04:00 CDT, Stop date: 02/25/18 11:04:00 CDTNotes: (Same as: Zoloft) Miralax 17 gm, 1 pkt, Inactive [facility] Route: PO, 018 Drug form: PWDR, Daily, Dosing Weight 65.818, kg, Start date: 02/25/18 8:30:00 CDT, Duration: 60 day, Stop date: 04/25/18 8:30:00 CDTNotes: Dissolve in 8 oz of water or juice. (Same as: Miralax) Nicotine 7 mg, 1 No Longer [facility] patch, Route: Active 018 TOP, Drug form: ERFILM, Daily, Dosing Weight 65.818, kg, Start date: 02/25/18 8:30:00 CDT, Duration: 30 day, Stop date: 03/26/18 8:30:00 CDTNotes: (Same as: Habitrol) "Remove old patch before application of new patch" WASTE: F/P - P Waste Black; E - P Waste Black Trazodone 100 mg, 1 No Longer [facility] Hydrochloride 50 tab, Route: Active 018 MG Oral Tablet PO, Drug form: TAB, Bedtime, Dosing Weight 65.818, kg, Start date: 02/24/18 21:00:00 CDT, Duration: 60 day, Stop date: 04/24/18 21:00:00 CDTNotes: (Same As: Desyrel) Sertraline 50 mg, 1 tab, No Longer MH [facility] Route: PO, Active 018 Drug form: TAB, Daily, Dosing Weight 65.818, kg, Start date: 02/22/18 8:30:00 CDT, Stop date: 04/22/18 8:30:00 CDTNotes: (Same as: Zoloft) Lisinopril 20 mg, 1 tab, No Longer MH [facility] Route: PO, Active 018 Drug form: TAB, Daily, Dosing Weight 65.818, kg, Start date: 02/22/18 8:30:00 CDT, Duration: 60 day, Stop date: 04/22/18 8:30:00 CDTNotes: (Same as: Prinivil, Zestril) Trazodone 50 mg, 1 tab, No Longer [facility] Hydrochloride 50 Route: PO, Active 018 MG Oral Tablet Drug form: TAB, Bedtime, Dosing Weight 65.818, kg, Start date: 02/20/18 21:00:00 CDT, Duration: 60 day, Stop date: 04/20/18 21:00:00 CDTNotes: (Same As: Desyrel) Melatonin 3 MG 3 mg, 1 tab, Inactive [facility] Extended Release Route: PO, 018 Tablet Drug Form: TAB, Dosing Weight 65.818, kg, Bedtime, PRN Insomnia, Start date: 02/20/18 13:02:00 CDT, Duration: 60 day, Stop date: 04/21/18 13:01:00 CDTNotes: (Same as: Melatonin) Acetaminophen 650 mg, 2 No Longer [facility] tab, Route: Active 018 PO, Drug form: TAB, BID, Dosing Weight 65.818, kg, Start date: 02/20/18 11:00:00 CDT, Duration: 60 day, Stop date: 04/21/18 7:30:00 CDTNotes: Do not exceed 4 gm/day. (Same as: Tylenol) Bacitracin 1 appl, No Longer [facility] Route: TOP, Active 018 Q8H, Drug form: OINT, Start date: 02/18/18 16:00:00 CDT, Duration: 30 day, Stop date: 03/20/18 8:00:00 CDT Lisinopril 20 mg, 1 tab, No Longer [facility] Route: PO, Active 018 Drug form: TAB, BID, Dosing Weight 65.818, kg, Start date: 02/17/18 21:00:00 CDT, Duration: 60 day, Stop date: 04/18/18 8:30:00 CDTNotes: (Same as: Prinivil, Zestril) Seroquel 25 mg, 1 tab, No Longer [facility] Route: PO, Active 018 Drug form: TAB, Bedtime, Dosing Weight 65.818, kg, Start date: 02/17/18 21:00:00 CDT, Duration: 60 day, Stop date: 04/17/18 21:00:00 CDTNotes: (Same as: SEROquel) Acetaminophen 650 mg, 2 No Longer [facility] tab, Route: Active 018 PO, Drug form: TAB, Q6H, Dosing Weight 65.818, kg, PRN Pain 1-3/Temp > 100.4 F, Start date: 02/17/18 18:00:00 CDT, Stop date: 03/19/18 17:59:00 CDTNotes: Do not exceed 4 gm/day. (Same as: Tylenol) Streptococcus 0.5 mL, Inactive [facility] pneumoniae Route: IM, 018 serotype 1 Drug Form: capsular antigen INJ, Daily, diphtheria Start date: [id number] protein 02/17/18 conjugate 9:00:00 CDT, vaccine / Duration: 1 Streptococcus doses or pneumoniae times, Stop serotype 14 date: capsular antigen 02/17/18 diphtheria 9:00:00 [id number] protein CDTNotes: conjugate Shake well vaccine / prior to use Streptococcus (Same as: pneumoniae Prevnar 13) serotype 18C capsular antigen d remove patch 1 patch, No Longer [facility] Route: TOP, Active 018 Drug form: ERFILM, Daily, Start date: 02/17/18 8:30:00 CDT, Duration: 30 day, Stop date: 03/18/18 8:30:00 CDTNotes: Remove old patch before application of new patch. WASTE: F/P - P Waste Black; E - P Waste Black Albuterol 0.833 3 mL, Route: No Longer [facility] MG/ML / NEB, Drug Active 018 Ipratropium Form: SOLN, Weir 0.167 Dosing Weight MG/ML Inhalant 65.818, kg, Solution BID, PRN as [DuoNeb] needed for shortness of breath or wheezing, Start date: 02/16/18 14:20:00 CDT, Duration: 60 day, Stop date: 04/17/18 14:19:00 CDTNotes: (Same as: Duoneb) Miralax 17 gm, 1 pkt, No Longer [facility] Route: PO, Active 018 Drug form: PWDR, BID, Dosing Weight 65.818, kg, Start date: 02/15/18 21:00:00 CDT, Duration: 60 day, Stop date: 04/16/18 8:30:00 CDTNotes: Dissolve in 8 oz of water or juice. (Same as: Miralax) SENOKOT-S 1 tab, Route: No Longer [facility] PO, Drug Active 018 Form: TAB, Dosing Weight 65.818, kg, BID, Start date: 02/15/18 21:00:00 CDT, Duration: 60 day, Stop date: 04/16/18 8:30:00 CDTNotes: (Same as Senokot-S) Equiv. to Ruby-Colace. Dulcolax 10 mg, 1 No Longer [facility] Laxative supp, Route: Active 018 MT, Drug form: SUPP, Daily, Dosing Weight 65.818, kg, PRN Constipation, Start date: 02/15/18 9:51:00 CDT, Duration: 60 day, Stop date: 04/16/18 9:50:00 CDTNotes: (Same As: Dulcolax, Bisco-Lax) Lisinopril 20 mg, 1 tab, No Longer [facility] Route: PO, Active 018 Drug form: TAB, Daily, Dosing Weight 65.818, kg, Start date: 02/15/18 8:30:00 CDT, Duration: 60 day, Stop date: 04/15/18 8:30:00 CDTNotes: (Same as: Prinivil, Zestril) Enoxaparin 40 mg, 0.4 No Longer [facility] mL, Route: Active 018 SUB-Q, Drug form: INJ, Daily, Dosing Weight 65.818, kg, Start date: 02/15/18 8:30:00 CDT, Duration: 60 day, Stop date: 04/15/18 8:30:00 CDTNotes: (Same as: Lovenox) Amlodipine 10 mg, 1 tab, No Longer [facility] Route: PO, Active 018 Drug form: TAB, Daily, Dosing Weight 65.818, kg, Start date: 02/15/18 8:30:00 CDT, Duration: 60 day, Stop date: 04/15/18 8:30:00 CDTNotes: (Same as: Norvasc) Nicoderm C-Q Route: TOP, No Longer [facility] Drug form: Active 018 ERFILM, Daily, Dosing Weight 65.818, kg, Start date: 02/15/18 8:30:00 CDT, Duration: 60 day, Stop date: 04/15/18 8:30:00 CDTNotes: (Same as: Habitrol) "Remove old patch before application of new patch" WASTE: F/P - P Waste Black; E - P Waste Black Famotidine 20 MG 20 mg, 1 tab, No Longer [facility] Oral Tablet Route: PO, Active 018 [Pepcid] Drug form: TAB, BID, Dosing Weight 65.818, kg, Start date: 02/14/18 21:00:00 CDT, Duration: 60 day, Stop date: 04/15/18 8:30:00 CDTNotes: (Same as: Pepcid) SENOKOT-S 2 tab, Route: No Longer [facility] PO, Drug Active 018 Form: TAB, Dosing Weight 65.818, kg, BID, Start date: 02/14/18 21:00:00 CDT, Duration: 60 day, Stop date: 04/15/18 8:30:00 CDTNotes: (Same as Senokot-S) Equiv. to Ruby-Colace. Lipitor 20 mg, 1 tab, No Longer [facility] Route: PO, Active 018 Drug form: TAB, Bedtime, Dosing Weight 65.818, kg, Start date: 02/14/18 21:00:00 CDT, Duration: 60 day, Stop date: 04/14/18 21:00:00 CDTNotes: (Same As: Lipitor) Seroquel 25 mg, 1 tab, No Longer [facility] Route: PO, Active 018 Drug form: TAB, BID, Dosing Weight 65.818, kg, Start date: 02/14/18 21:00:00 CDT, Duration: 60 day, Stop date: 04/15/18 8:30:00 CDTNotes: (Same as: SEROquel) metoprolol 50 mg, 1 tab, No Longer [facility] tartrate Route: PO, Active 018 Drug form: TAB, Q12H, Dosing Weight 65.818, kg, Start date: 02/14/18 21:00:00 CDT, Stop date: 04/15/18 9:00:00 CDTNotes: (Same as: Lopressor) Albuterol 0.833 3 mL, Route: No Longer [facility] MG/ML / NEB, Drug Active 018 Ipratropium Form: SOLN, Weir 0.167 Dosing Weight MG/ML Inhalant 65.818, kg, Solution TRQ6H, Start [DuoNeb] date: 02/14/18 19:30:00 CDT, Duration: 60 day, Stop date: 04/15/18 13:30:00 CDTNotes: (Same as: Duoneb) Levetiracetam 1,500 mg, No Longer [facility] Route: IV, Active 018 Drug form: INJ, PRN, Dosing Weight 65.818, kg, PRN Seizure, Start date: 02/14/18 15:54:00 CDT, Duration: 60 day, Stop date: 04/15/18 15:53:00 CDTNotes: Same as Keppra Mix with 100 mL NS, LR or D5W MEDICATION WASTE Product Size: 500 mg Product Wasted: ___ mg Midazolam 5 mg, 1 mL, No Longer [facility] Route: IM, Active 018 Drug form: SOLN, PRN, Dosing Weight 65.818, kg, PRN Seizure, Start date: 02/14/18 15:54:00 CDT, Duration: 60 day, Stop date: 04/15/18 15:53:00 CDTNotes: (Same as: Versed) Max dose 5 mg for patients 40 kg Saline Flush 10 mL, Route: No Longer [facility] 0.9% IVP, Drug Active 018 Form: INJ, Dosing Weight 65.818, kg, PRN, PRN Line Flush, Start date: 02/14/18 15:54:00 CDT, Duration: 60 day, Stop date: 04/15/18 15:53:00 CDTNotes: (Same as: BD Posiflush) metoprolol 100 mg=1 tab, No Longer [facility] tartrate 100 mg PO, BID, # 60 Active 018 oral tablet tab, 0 Refill(s) 24 HR Nicotine =1 patch, No Longer [facility] 0.583 MG/HR TOP, Daily, # Active 018 Transdermal 14 patch, 0 Patch [Nicoderm Refill(s) C-Q] SENOKOT-S 1 tab, PO, No Longer [facility] BID, 0 Active 018 Refill(s) Seroquel 25 mg, PO, No Longer [facility] BID, 0 Active 018 Refill(s) atorvastatin 20 20 mg=1 tab, No Longer [facility] MG Oral Tablet PO, Daily, 0 Active 018 [Lipitor] Refill(s) Amlodipine 10 mg, PO, No Longer [facility] Daily, 0 Active 018 Refill(s) lisinopril 20 mg 20 mg=1 tab, No Longer [facility] oral tablet PO, Daily, # Active 018 30 tab, 0 Refill(s) Albuterol 0.833 3 mL, NEB, No Longer [facility] MG/ML / Q6H, 0 Active 018 Ipratropium Refill(s) Weir 0.167 MG/ML Inhalant Solution [DuoNeb] Famotidine 20 MG 20 mg=1 tab, No Longer [facility] Oral Tablet PO, BID, # 60 Active 018 [Pepcid] tab, 0 Refill(s) enoxaparin 40 40 mg, SUB-Q, No Longer [facility] mg/0.4 mL Q24H, 0 Active 018 subcutaneous Refill(s) solution Allergies, Adverse Reactions, Alerts Substance Category Reaction Severity Reaction Status Date Comments Source type Reported No Known Assertion Drug MH [facility] Medication allergy Allergies Immunizations Immunization Date Given Site Status Last Updated Comments Source pneumococcal 02/19/2018 Not Given [facility] 13-valent vaccine pneumococcal 02/19/2018 Not Given [facility] 13-valent vaccine<sup>1</sup > Results Order Name Results Value Reference Date Interpretation Comments Source Range EEG-PORTABL <p> </p><p> 09/10 [facility] </p><p> /[address] [place] [address] </p><p> </p><p> </p><p> </p><p> </p><p> </p><p>[facility]</p>&[facility] ;p> System </p><p>EEG Report</p><p> EEG Report </p><p>Genera melody: Generated: 09/10/2018 09/10/2018 8:56:18 8:56:18 AM AM</p><p> </p><p>Patien Patient t Information Information</ p><p> ID </p><p>ID [id number] EEG EEG Date Date 09/09/2018 09/09/2018</p ><p> Name </p><p>Name STEPHEN JJ JAMES ES KEITH KEITH EEG No. EEG No. [id number]</p><p> </p><p>Gender Male In/Out Gender Male patient In/Out In</p><p> patient In </p><p>Elio e of Date of 1950 Refer. Dept. 1950 [facility]</p><p Refer. > </p><p>Age Dept. 68 yr 1 mo SHERRY Refer. Physician Age 68 yr 1 NUVIA RUSSELL mo Refer. A Y</p><p> Physician </p><p>Operat SIMEON RUSSELL or BY</p><p> VIA Y </p><p>Commen t BT [employer] BY IP</p><p> </p><p>Medica Comment BT tions: IP Enoxaparin</p ><p> Medications </p><p>Start: : 09/09/2018 Enoxaparin 11:20:15 AM</p><p>End: Start: 09/09/2018 09/09/2018 11:40:29 11:20:15 AM AM</p><p> End: </p><p>EEG 09/09/2018 REPORT:</p><p 11:40:29 AM > </p><p>FREDRICK EEG REPORT: HNICAL SUMMARY</p><p TECHNICAL > </p><p>The SUMMARY occipital dominant The rhythm is 9 occipital Hz present on dominant the right. rhythm is 9 There is low Hz present voltage 18 to on the 22 </p><p>Hz right. activity There is in</p><p>a low voltage nterior 18 to 22 regions. Hz activity Moderate in voltage 2 to anterior 4 Hz activity regions. is present in Moderate the left voltage 2 temporal to 4 Hz </p><p>reg activity is ion with wide present in are</p><p>al the left reflection on temporal that region with side.</p><p> wide are </p><p>Photic al stimulation: reflection No abnormal on that activity side. elicited.</p> <p> Photic </p><p>IMP stimulation RESSION: This : No patient's abnormal electroenceph activity alogram is elicited. abnormal in the presence IMPRESSION: of a focus of This </p><p>slow patient's (delta electroence and</p><p>the phalogram ta) activity is abnormal in the left in the hemisphere presence of consistent a focus of with the slow (delta presence of a and focal lesion theta) on activity in </p><p>that the left side. No hemisphere e</p><p>pilep consistent tiform with the activity is presence of present. No a focal electrographi lesion on c seizures that side. were No e recorded.</p> pileptiform <p> activity is </p><p>Gina present. No Terrance. silvina Powell MD</p><p> hic </p><p>ICD10: seizures R56.9</p><p> were </p><p>Pro recorded. vider ID: [id number]</p><p> Gina Kimberley </p> MD Sherry ICD10: R56.9 Provider ID: [id number] EEG-PORTABL <p Interface, Eeg-Results - 09/10/2018 8:59 AM CDT 09/10 [place] E AT styleCode=" Health BEDSIDE ader">Interfa ce, Eeg-Results - 09/10/2018 8:59 AM CDT</p><p>

< br/>
<br/ >

<s estrada>[facility]</span>

<sp an>EEG Report</span> [facility]

<span>Generat ed: 09/10/2018 EEG Report 8:56:18 AM</span><br/ >
<span>P atient Generated: 09/10/2018 8:56:18 AM Information</ span>

<span>ID [id number] EEG Patient Information Date 09/09/2018</s estrada>
<br/ ><span>Name ID [id number] EEG Date 09/09/2018 CONRADO JJ EEG No. [id number]</span>

Name CONRADO JJ EEG No. [id number] <span>Gender Male In/Out patient In</span><br/ Gender Male In/Out patient In >
<span>D ate of 1950 Refer. Dept. Date of 1950 Refer. Dept. SHERRY POWELL</span >

<s estrada>Age 68 yr 1 mo Refer. Age 68 yr 1 mo Refer. Physician LOBO RUSSELL Physician NUVIA RUSSELL</span>
[employer] V[employer] BY
<span>Op erator BY</span><br/ >
<span>C Comment BT IP omment BT IP</span><br/ >
<spa n>Medications Medications: Enoxaparin : Enoxaparin</s estrada>
<br/ ><span>Start: Start: 09/09/2018 11:20:15 AM 09/09/2018 11:20:15 End: 09/09/2018 11:40:29 AM AM</span><br/ ><span>End: 09/09/2018 11:40:29 EEG REPORT: AM</span><br/ >
<span>E EG REPORT:</span TECHNICAL SUMMARY >

<s estrada>TECHNICAL SUMMARY</span >
<br/ The occipital dominant rhythm is 9 Hz present on the right. There is low voltage 18 to 22 ><span>The occipital Hz activity in dominant rhythm is 9 anterior regions. Moderate voltage 2 to 4 Hz activity is present in the left temporal Hz present on the right. region with wide are There is low </span><span> al reflection on that side. voltage 18 to 22 </span>
< span>Hz Photic stimulation: No abnormal activity elicited. activity in</span><br/ ><span>anteri or regions. IMPRESSION: This patient's electroencephalogram is abnormal in the presence of a focus of Moderate voltage 2 to slow (delta and 4 Hz activity is present in theta) activity in the left hemisphere consistent with the presence of a focal lesion on the </span><span> that side. No e left temporal </span>
< pileptiform activity is present. No electrographic seizures were recorded. span>region with wide are</span>
<span>tito Powell MD reflection on that side.</span>< br/>
< ICD10: R56.9 span>Photic stimulation: No abnormal activity Provider ID: [id number] elicited.</sp an>

<span>IMPRESS ION: This patient's electroenceph alogram is abnormal in the </span><span& gt;presence of a focus of </span>
< span>slow (delta and</span>
<span>th eta) activity in the left hemisphere consistent with the presence of a </span><span> focal lesion on </span>
< span>that side. No e</span>
<span>pile ptiform activity is present. No electrographi c seizures were </span><span> recorded.</sp an>

<span>Gina Powell MD</span><br/ >
<span>I CD10: R56.9</span>< br/>
<spa n>Provider ID: [id number]</span>
</p> MRI BRAIN W/O IMPRESSION: 1. No acute intracranial abnormalities. 2. No changes compared to prior head CTA on 09/05/2018. Persistent findings: 1.Left parieto-occipital craniotomy. 2.Encephalomalacia of the left occipital lobe as described. 09/10 [facility] CONTRAST 3.Moderate supratentorial white matter microvascular ischemic changes. Dictated By: Mika Holden MD, 09/10/2018 8:34 AM I have reviewed the study and agree with the findings in this report. 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 No masses, acute hemorrhage, acute cortical vascular insults. Vessels: Normal flow voids in major arteries and veins. Sellar/Suprasellar region:No abnormalities Craniocervical junction: No abnormalities. 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 [...] By: Lucia Norris MD, 09/10/2018 8:54 AM TTE FOLLOW ECHO HEART 09/09 [facility] XTHORACIC, Health ITED Transthoracic Echo Report CONRADO JJ Age:68 Gender: M :1950 Exam Date: 09/09/2018 16:22 Exam Location: [facility] Ordering Phys: LOBO RUSSELL Referring Phys:[id number] Reading Phys:Pauline Juarez MD Fellow Phys: Fellow Phys: Cupola Liner Helper: Chase Silverman Reason For Exam: Indications:stroke, Stroke ICD-9 Codes: I67.89 Exam Type: TTE FOLLOW UP Procedure CPT:44772 Addtional CPT: Ht (in): 69 BSA: 1.88HR: [...] (Electronically Signed) Final Date:09 September 2018 16:27 TRANSTHORAC TRANSTHORACIC 09/08 [facility] ECHO ECHO (TTE) /2017 Health (TTE) Transthoracic Echo Report CONRADO JJ Age:68 Gender: M :1950 Exam Date: 09/08/2018 07:57 Exam Location: [facility] Ordering Phys: MARY JANE CHILD Referring Phys:[id number] Reading Phys:Alexandra Purvis Fellow Phys: Fellow Phys: Cupola Liner Helper: Alli Barrow Reason For Exam: Indications:Stroke ICD-9 Codes: I67.89 Exam Type: TRANSTHORACIC ECHO (TTE) Procedure CPT:08700 Addtional CPT: Ht (in): 69 BSA: 1.88HR: 71 Rhythm: Sinus rhythm Wt (lb): 160BP: 134/ 67 Technical Quality: Adequate History: L 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 stroke MEASUREMENTS(Male / Female) Normal Values 2D ECHO LV Diastolic Diameter PLAX5 cm4.2 - 5.9 / 3.9 - 5.3 cm LV Systolic Diameter PLAX 3.2 cm2.1 - 4.0 cm LV Fractional Shortening PLAX 37.5 %25 - 46% IVS Diastolic Thickness 0.83 cm LVPW Diastolic Thickness1 cm LV Relative Wall Thickness0.37 LVOT Diameter 2.1 cm Aortic Root Diameter3.4 cm LV Diastolic Volume MOD 4C76.4 cm LV Systolic Volume MOD 4C 32.7 cm LV Ejection Fraction MOD 4C 57.2 % LV Stroke Volume MOD 4C 43.7 cm LV Cardiac Output MOD [id number] cm/min LV Cardiac Index MOD 4C 1648 cm/minm RV Diastolic Basal Diameter 3.6 cm2.0 - 2.8 cm RA Area 15.3 cm DOPPLER AV Peak Paitccdn241 cm/s AV Peak Gradient8.6 mmHg Aortic R to R Interval0.69 s LVOT Peak Dlcgrkgj727 cm/s LVOT Peak Gradient4.5 mmHg LVOT Mean Vywjjtxy03.8 cm/s LVOT Mean Gradient1.9 mmHg LVOT Velocity Time Integral 20.6 cm LVOT Stroke Oalxmt02.7 cm LVOT Cardiac Output 6.3 liters/min LVOT [...] 14:20 2D ECHO LV Diastolic Diameter PLAX5 cm4.2 - 5.9 / 3.9 - 5.3 cm LV Systolic Diameter PLAX 3.2 cm2.1 - 4.0 cm LV Fractional Shortening PLAX 37.5 %25 - 46% IVS Diastolic Thickness 0.83 cm LVPW Diastolic Thickness1 cm LV Relative Wall Thickness0.37 LVOT Diameter 2.1 cm Aortic Root Diameter3.4 cm LV Diastolic Volume MOD 4C76.4 cm LV Systolic Volume MOD 4C 32.7 cm LV Ejection Fraction MOD 4C 57.2 % LV Stroke Volume MOD 4C 43.7 cm LV Cardiac Output MOD 4G0379 cm/min LV Cardiac Index MOD 4C 1648 cm/minm RV Diastolic Basal Diameter 3.6 cm2.0 - 2.8 cm RA Area 15.3 cm DOPPLER AV Peak Vaogyamr314 cm/s AV Peak Gradient8.6 mmHg Aortic R to R Interval0.69 s LVOT Peak Abbyuaho771 cm/s LVOT Peak Gradient4.5 mmHg LVOT Mean Orqauplp04.8 cm/s LVOT Mean Gradient1.9 mmHg LVOT Velocity Time Integral 20.6 cm LVOT Stroke Elbbwo84.7 cm LVOT Cardiac Output 6.3 liters/min LVOT Cardiac Index3.3 l/minm AV Area Cont Eq pk2.5 cm Mitral E Point Velocity 58 cm/s Mitral A Point Velocity 78.3 cm/s Mitral E to A Ratio 0.74 LIPID Cholesterol 158 mg/dL 09/06 REFERENCE RANGE: [facility] PROFILE Desirable: <200 mg/dL Health Borderline: 200-240 mg/dL High Risk: >240 mg/dL LIPID Triglyceride 145 mg/dL <150 09/06 REFERENCE RANGE: [facility] Normal: <150 mg/dL Health Borderline High: 150-199 mg/dL High: 200-499 mg/dL Very High: >xy=591 mg/dL LIPID HDL 32 mg/dL 09/06 Increased CHD risk: <40 mg/dL [facility] Decreased CHD risk: >60 mg/dL Health LIPID LDL 97 mg/dL 09/06 REFERENCE RANGE: [facility] /2017 Optimal: <100 mg/dL Health Near Optimal: 100-129 mg/dL Borderline High: 130-159 mg/dL High: 160-189 mg/dL Very High: >vq=439 mg/dL BASIC CO2 24 mmol/L - 09/06 [facility] /2017 Health PANEL BASIC Chloride 108 mmol/L 98 - 107 09/06 [facility] PANEL BASIC Potassium 3.8 mmol/L 3.5 - 5.1 09/06 [facility] PANEL BASIC Sodium 141 mmol/L 136 - 145 09/06 [facility] PANEL BASIC Glucose 98 mg/dL 70 - 110 09/06 [facility] /2017 [facility] PANEL BASIC Urea Nitrogen 9 mg/dL 7 - 25 09/06 [facility] /2017 [facility] PANEL BASIC Creatinine 0.80 mg/dL 0.7 - 1.3 09/06 [facility] /2017 [facility] PANEL BASIC Anion Gap 9 09/06 [facility] /2017 [facility] PANEL BASIC Calcium 9.2 mg/dL 8.6 - 10.3 09/06 [facility] /2017 [facility] PANEL BASIC GFR, >60 mL/min/1.7 09/06 [facility] Estimated 3 m2 Health PANEL BASIC GFR, Estim, >60 mL/min/1.7 09/06 [facility] Afr-Am 3 m2 Health PANEL BASIC Lab Abnormal 09/06 [facility] Interpretatio /2017 Health PANEL n MAGNESIUM Magnesium 1.8 mg/dL 1.9 - 2.7 09/06 [facility] MAGNESIUM Lab Abnormal 09/06 [facility] /2017 [facility] n CBC/DIFF WBC 5.6 K/uL 4.5 - 12 09/06 [facility] CBC/DIFF RBC 4.51 4.60 - 09/06 [facility]. [facility] CBC/DIFF Hemoglobin 14.4 g/dL 14 - 18 09/06 [facility] CBC/DIFF Hematocrit 40.7 % 40 - 54 09/06 [facility] CBC/DIFF MCV 90 fL 82 - 92 09/06 [facility] CBC/DIFF MCH 31.9 pg 27 - 31 09/06 [facility] CBC/DIFF MCHC 35.4 g/dL 32 - 36 09/06 [facility] CBC/DIFF RDW 41.6 fL 35.1 - 09/06 [facility] 43.9 /2017 [facility] CBC/DIFF Platelet 156 K/uL 150 - 400 09/06 [facility] CBC/DIFF Mean Platelet 10.8 fL 9.4 - 12.4 09/06 [place] [facility] CBC/DIFF Percent NRBC 0.0 09/06 [facility] CBC/DIFF Absolute NRBC 0.00 09/06 [facility] CBC/DIFF Neutrophil 50.8 % 34 - 67.9 09/06 [facility] CBC/DIFF Lymphocyte 35.1 % 21.8 - 50 09/06 Health CBC/DIFF Monocyte 11.9 % 5.3 - 12 09/06 [facility] CBC/DIFF Eosinophil 1.3 % 0.8 - 5 09/06 [facility] CBC/DIFF Basophil 0.7 % 0.2 - 1.2 09/06 [facility] CBC/DIFF Pct Immat 0.2 0.0 - 0.5 09/06 [facility] CBC/DIFF Neutrophil, 2.82 K/uL 1.78 - 09/06 [facility] [facility] Abs 5.36 /2017 Health CBC/DIFF Lymphocyte, 1.95 K/uL 1.32 - 09/06 [place] [facility] Abs 3.57 /2017 Health CBC/DIFF Monocyte, Abs 0.66 K/uL 0.3 - 0.82 09/06 Health CBC/DIFF Eosinophil, 0.07 K/uL 0.04 - 09/06 [place] [facility] Abs 0.54 /2017 Health CBC/DIFF Basophil, Abs 0.04 K/uL 0.01 - 09/06 [facility] 0.08 Health CBC/DIFF Absol Immat 0.01 K/uL 0 - 0.03 09/06 Health CBC/DIFF Lab Abnormal 09/06 [place] [facility] Interpretatio Health n URINE DRUG Amphetamine Negative NEG 09/05 Calibrated Standard: D- Methamphetamine [facility] /2017 Positive if urine level >ca=7272 ng/mL Health Test performed on [id number] using EMIT Immunoassay URINE DRUG Barbiturate Negative NEG 09/05 Calibrated Standard: Secobarbital [facility] /2017 Positive if urine level is >kf=166 ng/mL Health Test performed on [id number] using EMIT Immunoassay URINE DRUG Benzodiazepin Negative NEG 09/05 Calibrated Standard: Lormethazepam [facility] S[facility] e Positive if urine level is >zm=125 ng/mL Health Test performed on [id number] using EMIT Immunoassay URINE DRUG Cannabinoid Negative NEG 09/05 Calibrated Standard: 11 nor- delta(9)-THC carboxylic a [facility] Positive if urine level >or=50 Health Test performed on [id number] using EMIT Immunoassay URINE DRUG Cocaine Negative NEG 09/05 Calibrated Standard: Benzoylecgonine [facility] Positive if urine level >nn=967 Health Test performed on [id number] using EMIT Immunoassay URINE DRUG Opiate, Ur Negative NEG 09/05 Calibrated Standard: Morphine [facility] Positive if urine level >xo=736 Health Test performed on [id number] using EMIT Immunoassay URINE DRUG PCP Negative NEG 09/05 Calibrated Standard: Phencyclidine [facility] /2017 Positive if urine level >or=25 Health Test performed on [id number] using EMIT Immunoassay Urine Toxicology Screen results are to be used only for Medical purposes. PT/INR/PTT PT 15.1 11.8 - 09/05 [facility] 15.0 [facility] PT/INR/PTT INR 1.2 09/05 [facility] SUGGESTED THERAPEUTIC RANGES: INR 2.0-3.0 for MODERATE INTENSITY ANTICOAGULATION INR 2.5-3.5 for HIGH INTENSITY ANTICOAGULATION PT/INR/PTT PTT 33.8 23.6 - 09/05 [place] 36.4 /2018 Health PT/INR/PTT Lab Abnormal 09/05 [place] [facility] Interpretatio Health n CTA HEAD W IMPRESSION: Head CT: No new acute intracranial abnormalities or changes when compared to head CT 09/04/2018. 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 2.Encephalomalacic changes of the left occipital lobe from prior 09/05 [place] [facility] CONTRAST chronic vascular insult versus prior trauma. 3.Moderate supratentorial white matter microvascular ischemic changes. 4.Moderate ventriculomegaly in the lateral and third ventricles with /2017 Health ex vacuo dilatation of the left lateral [...] By: Lucia Norris MD, 09/05/2018 11:53 AM Exams: Cervical and Intracranial CT angiograms. History: [...] direct supervision of the interpreting physician. IV [id number] cc of Omnipaque. Complication: None Radiation dose: [...] Severe spinal canal and bilateral foraminal stenosis. Interface, Rad/Mammog In - 09/05/2018 11:59 AM [...] By: Lucia Norris MD, 09/05/2018 11:53 AM CTA NECK W IMPRESSION: Head CT: No new acute intracranial abnormalities or changes when compared to head CT 09/04/2018. 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 2.Encephalomalacic changes of the left occipital lobe from prior 09/05 [facility] W/O chronic vascular insult versus prior trauma. 3.Moderate supratentorial white matter microvascular ischemic changes. 4.Moderate ventriculomegaly in the lateral and third ventricles with /2018 [facility] CONTRAST ex vacuo dilatation of the left lateral [...] By: Lucia Norris MD, 09/05/2018 11:53 AM Exams: Cervical and Intracranial CT angiograms. History: [...] direct supervision of the interpreting physician. IV [id number] cc of Omnipaque. Complication: None Radiation dose: [...] Severe spinal canal and bilateral foraminal stenosis. Interface, Rad/Mammog In - 09/05/2018 11:59 AM [...] By: Lucia Norris MD, 09/05/2018 11:53 AM SYPHILIS Treponemal Ab Negative 09/05 [facility] FOR [facility] INFECTION SYPHILIS Final Report Negative 09/05 [facility] INFECTION XRAY CHEST 2 IMPRESSION: Right lower lobe atelectasis. Otherwise, no acute thoracic abnormality. A "PRELIMINARY" report was made available via [employer] at the time of dictation by the resident indicated below. If the report is described as 09/05 [facility] VIEWS "FINALIZED" it indicates the attending/staff radiologist below has reviewed the images and agrees with the resident's interpretation. Dictated By: Javid Salamanca MD, 09/05/2018 3:29 AM /2018 Health I have reviewed the study and agree with the findings in this report. Signed By: Mika Abarca MD, 09/05/2018 6:32 AM EXAMINATION:XRAY CHEST 2 VIEWS, Frontal and lateral INDICATION: Rule out pneumonia COMPARISON:None FINDINGS: TUBES/LINES:None LUNGS:The right lower lobe linear airspace opacity, which likely represents atelectasis. PLEURA:No effusions or pneumothorax. HEART/MEDIASTINUM:Normal cardiomediastinal silhouette. MUSCULOSKELETAL:No acute findings. Surgical clips project within the right lateral and posterior soft tissue. UPPER ABDOMEN: Normal Interface, Rad/Mammog In - 09/05/2018 6:37 AM [...] A "PRELIMINARY" report was made available via [employer] at the time of dictation by the resident indicated below. If the report is described as "FINALIZED" it indicates the attending/staff radiologist below has reviewed the images and agrees with the resident's interpretation. Dictated By: Javid Salamanca MD, 09/05/2018 3:29 AM I have reviewed the study and agree with the findings in this report. Signed By: Mika Abarca MD, 09/05/2018 6:32 AM BLOOD Spec Blood 09/05 [place] CULTURE Description /2017 Health BLOOD Order None 09/05 [place] CULTURE Comments Health BLOOD Culture No growth 5 09/05 [facility] CULTURE days Health BLOOD Report Status Final 09/05 [place] CULTURE 09/10/2018 Health TROPONIN I Troponin I <0.03 <0.04 09/05 [facility] [facility] ng/mL /2017 Health VBG POC pH, Pardeep POC 7.40 7.33 - 09/05 [facility] 7.43 [facility] VBG POC pCO2, Pardeep POC 37.7 38.0 - 09/05 [facility] 50.0 Health VBG POC pO2, Pardeep POC 36 50 - 75 09/05 [facility] VBG POC Base Deficit, 1 09/05 [facility] Pardeep POC /2017 Health VBG POC HCO3, Pardeep POC 23.1 mmol/L 22 - 26 09/05 Health VBG POC % Sat, Pardeep 69 % 60 - 85 09/05 [facility] VBG POC Lactic Acid, 0.98 mmol/L 0.4 - 2 09/05 [place] Pardeep POC Health VBG POC Sample Type Pardeep 09/05 Health VBG POC TCO2, PARDEEP POC 24 mmol/L 21 - 32 09/05 Health VBG POC Lab Abnormal 09/05 [place] [facility] Interpretatio Health n VITAMIN B12 Vitamin B12 341 pg/mL 211 - 911 09/05 Health FOLIC ACID Folic Acid 13.2 ng/mL 5.9 - 24.8 09/[address] HEAD W/O IMPRESSION: Moderate ventriculomegaly involving the lateral and third ventricles slightly disproportionate to the amount of cerebral volume loss may represent normal pressure hydrocephalus in appropriate clinical setting. 09/05 [facility] CONTRAST Chronic findings: 1.Old left parietal-occipital craniotomy. 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 3.Moderate supratentorial white matter microvascular ischemic changes. Health 4.Exvacuo dilatation of the occipital horn of the left lateral ventricle. A "PRELIMINARY" report was made available via [employer] at the time of dictation by the resident indicated below. If the report is described as "FINALIZED" it indicates the attending/staff radiologist below has reviewed the images and agrees with the resident's interpretation. Dictated By: Javid Salamanca MD, 09/04/2018 8:57 PM I have reviewed the study and agree with the findings in this report. Signed By: Lori Munoz MD, 09/04/2018 9:50 PM Exam : Head CT without contrast History: [...] Skull base and Craniocervical junction: Intact . Interface, Rad/Mammog In - 09/04/2018 9:55 PM [...] A "PRELIMINARY" report was made available via [employer] at the time of dictation by the resident indicated below. If the report is described as "FINALIZED" it indicates the attending/staff radiologist below has reviewed the images and agrees with the resident's interpretation. Dictated By: Javid Salamanca MD, 09/04/2018 8:57 PM I have reviewed the study and agree with the findings in this report. Signed By: Lori Munoz MD, 09/04/2018 9:50 PM AMMONIA Ammonia 35 umol/L 16 - 53 09/05 [facility] HIV-1/HIV-2 HIV-1/HIV-2 Negative NEG 09/05 [place] [facility] DIAGNOSTIC/ Health SYMPTOMATIC TSH TSH 2.05 0.57 - 09/05 [facility] 3.74 [facility] LIVER T Protein 6.6 g/dL 6 - 8.3 09/05 [facility] LIVER Albumin 4.6 g/dL 4.2 - 5.5 09/05 [facility] LIVER T Bilirubin 0.8 mg/dL 0.2 - 1.2 09/05 [facility] LIVER Alk Phos 107 U/L 34 - 104 09/05 [facility] LIVER AST 15 U/L 13 - 39 09/05 [facility] LIVER ALT 13 U/L 7 - 52 09/05 [facility] LIVER D Bilirubin 0.2 mg/dL 0 - 0.2 09/05 [facility] LIVER Lab Abnormal 09/05 [place] [facility] PROFILE Interpretatio Health n 12 LEAD EKG 12 LEAD EKG [facility] 09/05 [place] [facility] Test Date:2018-09-04 Pat Name: CONRADO JJDepartment: : Gender: MTechnician: [id number] :1950 Requested By: Order Number:[id number] MD: Rishabh King M.D. Measurements IntervalsAxis Rate: 92 P:61 MT: 160QRS:3 QRSD: 88 T:31 QT: 340 QTc:422 Interpretive Statements SINUS RHYTHM Reviewed by Electronically Signed On 09-04-18 19:07:19 CDT by Rishabh King M.D. BMP POC CO2 POC 28 mmol/L 21 - 32 09/04 Health BMP POC Chloride POC 103 mmol/L 98 - 107 09/04 Health BMP POC Potassium POC 4.0 mmol/L 3.5 - 5.1 09/04 Health BMP POC Sodium POC 142 mmol/L 136 - 145 09/04 [facility] BMP POC Glucose POC 97 mg/dL 74 - 106 09/04 Health BMP POC Urea Nitrogen 12 mg/dL 7 - 18 09/04 [facility] POC Health BMP POC Creatinine 1.0 mg/dL 0.6 - 1.3 09/04 [place] POC Health BMP POC Calcium 1.31 mmol/L 1.15 - 09/04 [place] [facility] Ionized POC 1.29 Health BMP POC Hemoglobin 14.6 g/dL 14 - 09/04 [place] POC Health BMP POC Hematocrit 43.0 % 40 - 54 09/04 [place] POC Health BMP POC GFR, >60 mL/min/1.7 09/04 [place] [facility] Estimated 3 m2 [facility] POC GFR, Estim, >60 mL/min/1.7 09/04 [place] Afr-Am 3 m2 Health [facility] POC Lab Abnormal 09/04 [place] Interpretatio [facility] CHEM PANEL eGFR 88 02/25 Result Comment: The eGFR is calculated using the CKD-EPI formula. In most young, healthy individuals the eGFR will be >90 mL/ min/1.73m2. The eGFR declines with age. An eGFR of 60-89 may be normal in [facility] mL/min/1.73 some populations, particularly the elderly, for whom the CKD-EPI formula has not been extensively validated. Use of the eGFR is not recommended in the following populations: m2 Individuals with unstable creatinine concentrations, including patients and those with serious co-morbid conditions. Patients with extremes in muscle mass or diet. The data above are obtained from the National Kidney Disease Education Program (NKDEP) which additionally recommends that when the eGFR is used in patients with extremes of body mass index for purposes of drug dosing, the eGFR should be multiplied by the estimated BMI. CHEM PANEL Calcium Lvl 9.2 mg/dL 8.5 - 10.5 02/25 [facility] CHEM PANEL AGAP 12.0 meq/L 10.0 - 02/25 [facility] 20.0 CHEM PANEL CO2 28 meq/L 24 - 32 02/25 [facility] /2017 CHEM PANEL Creatinine 0.90 mg/dL 0.50 - 02/25 [facility] Lvl 1.40 CHEM PANEL Sodium Lvl 138 meq/L 135 - 145 02/25 [facility] CHEM PANEL Chloride Lvl 102 meq/L 95 - 109 02/25 CHEM PANEL Potassium Lvl 4.0 meq/L 3.5 - 5.1 02/25 CHEM PANEL BUN 10 mg/dL 7 - 22 02/25 [facility] CHEM PANEL Glucose Lvl 88 mg/dL 70 - 99 02/25R CHEM PANEL Magnesium Lvl 1.8 mg/dL 1.8 - 2.4 02/24 CHEM PANEL Phosphorus 3.4 mg/dL 2.5 - 4.5 02/24 [facility] ELECTROLYTE CO2 24 meq/L 24 - 32 02/24 [facility] ELECTROLYTE Calcium Lvl 9.5 mg/dL 8.5 - 10.5 02/24 [facility] ELECTROLYTE Glucose Lvl 78 mg/dL 70 - 99 02/24 R ELECTROLYTE Creatinine 0.94 mg/dL 0.50 - 02/24 [facility] Lvl 1.40 ELECTROLYTE BUN 13 mg/dL 7 - 02/24 [facility] ELECTROLYTE AGAP 17.0 meq/L 10.0 - 02/24 [facility] S 20.0 ELECTROLYTE eGFR 84 02/24 Result Comment: The eGFR is calculated using the CKD-EPI formula. In most young, healthy individuals the eGFR will be >90 mL/ min/1.73m2. The eGFR declines with age. An eGFR of 60-89 may be normal in [facility] mL/min/1.73 some populations, particularly the elderly, for whom the CKD-EPI formula has not been extensively validated. Use of the eGFR is not recommended in the following populations: m2 Individuals with unstable creatinine concentrations, including patients and those with serious co-morbid conditions. Patients with extremes in muscle mass or diet. The data above are obtained from the National Kidney Disease Education Program (NKDEP) which additionally recommends that when the eGFR is used in patients with extremes of body mass index for purposes of drug dosing, the eGFR should be multiplied by the estimated BMI. ELECTROLYTE Sodium Lvl 138 meq/L 135 - 145 02/24 [facility] ELECTROLYTE Potassium Lvl 5.0 meq/L 3.5 - 5.1 02/24 [facility] ELECTROLYTE Chloride Lvl 102 meq/L 95 - 109 02/24 [facility] HEMATOLOGY MCHC 33.8 g/dL 32.0 - 02/24 [facility] 36.0 HEMATOLOGY MCV 93.5 fL 80.0 - 02/24 [facility] 94.0 HEMATOLOGY Hct 42.9 % 42.0 - 02/24 [facility] 54.0 HEMATOLOGY Hgb 14.5 g/dL 14.0 - 02/24 [facility] 18.0 HEMATOLOGY MCH 31.6 pg 27.0 - 02/24 [facility] 31.0 HEMATOLOGY RDW 12.9 % 11.5 - 02/24 [facility] 14.5 HEMATOLOGY Platelet 250 K/CMM 133 - 450 02/24 [facility] HEMATOLOGY MPV 10.0 fL 7.4 - 10.4 02/24 [facility] HEMATOLOGY WBC 7.2 K/CMM 3.7 - 10.4 02/24 [facility] HEMATOLOGY RBC 4.59 M/CMM 4.70 - 02/24 [facility] 6.10 HEMATOLOGY Eosinophils 1.9 % 0.0 - 4.0 02/24 [facility] HEMATOLOGY Monocytes 11.8 % 2.0 - 12.0 02/24 [facility] HEMATOLOGY Basophils 0.2 % 0.0 - 1.0 02/24 [facility] HEMATOLOGY Segs-Bands # 3.8 K/CMM 1.5 - 8.1 02/24 [facility] HEMATOLOGY Lymphocytes 34.5 % 20.0 - 02/24 [facility] 40.0 HEMATOLOGY Monocytes # 0.8 K/CMM 0.0 - 0.8 02/24 [facility] HEMATOLOGY Segs 51.6 % 45.0 - 02/24 [facility] 75.0 HEMATOLOGY Lymphocytes # 2.5 K/CMM 1.0 - 5.5 02/24 [facility] HEMATOLOGY Basophils # 0.0 K/CMM 0.0 - 0.2 02/24 [facility] HEMATOLOGY Eosinophils # 0.1 K/CMM 0.0 - 0.5 02/24 [facility] CHEM PANEL Magnesium Lvl 1.7 mg/dL 1.8 - 2.4 02/22 [facility] ELECTROLYTE CO2 25 meq/L 24 - 32 02/22 [facility] ELECTROLYTE Sodium Lvl 138 meq/L 135 - 145 02/22 [facility] ELECTROLYTE Creatinine 0.88 mg/dL 0.50 - 02/22 [facility] S Lvl 1.40 /2017 ELECTROLYTE Chloride Lvl 105 meq/L 95 - 109 02/22R ELECTROLYTE Potassium Lvl 4.8 meq/L 3.5 - 5.1 02/22R ELECTROLYTE Calcium Lvl 9.1 mg/dL 8.5 - 10.5 02/22 R ELECTROLYTE eGFR 89 02/22 Result Comment: The eGFR is calculated using the CKD-EPI formula. In most young, healthy individuals the eGFR will be >90 mL/ min/1.73m2. The eGFR declines with age. An eGFR of 60-89 may be normal in [facility] mL/min/1.73 /2017 some populations, particularly the elderly, for whom the CKD-EPI formula has not been extensively validated. Use of the eGFR is not recommended in the following populations: m2 Individuals with unstable creatinine concentrations, including patients and those with serious co-morbid conditions. Patients with extremes in muscle mass or diet. The data above are obtained from the National Kidney Disease Education Program (NKDEP) which additionally recommends that when the eGFR is used in patients with extremes of body mass index for purposes of drug dosing, the eGFR should be multiplied by the estimated BMI. ELECTROLYTE BUN 17 mg/dL 7 - 22 02/22 R ELECTROLYTE Glucose Lvl 98 mg/dL 70 - 99 02/22 R ELECTROLYTE AGAP 12.8 meq/L 10.0 - 02/22 [facility] S 20.0 HEMATOLOGY Monocytes # 1.0 K/CMM 0.0 - 0.8 02/22 [facility] HEMATOLOGY Segs 63.2 % 45.0 - 02/22 [facility] 75.0 HEMATOLOGY Basophils # 0.1 K/CMM 0.0 - 0.2 02/22 [facility] HEMATOLOGY Eosinophils # 0.1 K/CMM 0.0 - 0.5 02/22 [facility] HEMATOLOGY Lymphocytes # 2.4 K/CMM 1.0 - 5.5 02/22 [facility] HEMATOLOGY Lymphocytes 24.9 % 20.0 - 02/22 [facility] 40.0 HEMATOLOGY Basophils 0.5 % 0.0 - 1.0 02/22 [facility] HEMATOLOGY Eosinophils 0.9 % 0.0 - 4.0 02/22 [facility] HEMATOLOGY Monocytes 10.5 % 2.0 - 12.0 02/22 [facility] /2017 HEMATOLOGY Segs-Bands # 6.1 K/CMM 1.5 - 8.1 02/22 [facility] HEMATOLOGY MCV 93.4 fL 80.0 - 02/22 [facility] 94.0 HEMATOLOGY RDW 13.7 % 11.5 - 02/22 [facility] 14.5 HEMATOLOGY MCHC 33.6 g/dL 32.0 - 02/22 [facility] 36.0 HEMATOLOGY MCH 31.4 pg 27.0 - 02/22 [facility] 31.0 HEMATOLOGY RBC 4.23 M/CMM 4.70 - 02/22 [facility] 6.10 HEMATOLOGY WBC 9.6 K/CMM 3.7 - 10.4 02/22 [facility] HEMATOLOGY Platelet 281 K/CMM 133 - 450 02/22 [facility] HEMATOLOGY Hct 39.5 % 42.0 - 02/22 [facility] 54.0 HEMATOLOGY Hgb 13.3 g/dL 14.0 - 02/22 [facility] 18.0 HEMATOLOGY MPV 9.8 fL 7.4 - 10.4 02/22 [facility] Esophagus Esophagus BA PROCEDURE: MODIFIED BARIUM SWALLOW 02/20 - [facility] BA swallow swallow - w function function Rehab DX Rehab DX Clinical Indication: - current puree/thin by spoon. History of intracranial hemorrhage, currently on puree and liquid. Read by: Pradeep Rangel MD Dictated Date/time: 02/20/18 09:36 Electronically Signed by: Pradeep Rangel MD 02/20/18 09:46 FINAL REPORT COMPARISON: None. TECHNIQUE: Fluoroscopy was provided for a modified barium swallow performed by speech therapy. The patient was administered various consistencies of liquid barium and barium coated foods by mouth. FLUORO TIME: 1 minute 6 seconds FINDINGS: No abnormality of the swallowing mechanism is demonstrated. No episodes of laryngeal penetration or aspiration. IMPRESSION: Normal swallowing study. The reader is referred to dedicated speech therapy report for details. SL: [id number] Brain wo Brain wo Clinical Indication: - trace acute SAH parietal lobe. 67- year-old male with subarachnoid hemorrhage. 02/17 - [facility] contrast CT contrast CT /2017 - Comparison: CT the head 02/14/2018 Read by: Shelton Mckenzie MD Dictated Date/time: 02/17/18 15:12 TECHNIQUE: CT images were obtained from the foramen magnum to the vertex without the use of intravenous contrast on a multidetector CT. Coronal and sagittal reconstructions were obtained. Electronically Signed by: Shelton Mckenzie MD 02/17/18 15:[address] radiation dose DLP: 780.17 mGy-cm FINDINGS: BRAIN PARENCHYMA: Again seen is postoperative changes of a left posterior parietal craniotomy. A large area of low attenuation is seen surrounding an area of intermediate hyperattenuation in the posteri or left temporal lobe and occipital lobes consistent with hemorrhage mixed with edema similar to the previous CT 02/14/2018. The hypodense attenuation is more prominent than seen on the previous examina tion. Again seen is a trace acute subarachnoid hemorrhage in the right parietal lobe. Age-appropriate decreased brain volume is seen unchanged from the previous study. Mild nonspecific periventricular white matter disease changes are noted. Atherosclerotic calcifications are present with in the carotid siphons and distal vertebral arteries. There are no focal mass lesions on this noncontrast head CT. There is no mass effect, midline shift or edema. There are no intra-axial or extra-axi al fluid collections, intraventricular or intraparenchymal hemorrhage. There is no noncontrast CT evidence of a subacute stroke. The pineal, sellar, brainstem, cerebellum and skull base regions appear unremarkable. VENTRICLES: The lateral ventricles, third and fourth ventricles are stable in size the basilar cisterns are normal. ORBITS, MASTOIDS AND PARANASAL SINUSES: The visualized orbits are unremarkable. Mild patchy mucosal thickening is seen in the paranasal sinuses. The mastoid air cells are clear. SKULL: Left parietal craniotomy is again seen. If there is further concern for intracranial pathology or acute stroke, MRI of the brain may be performed for complete assessment. IMPRESSION: 1. Large area of decreased attenuation is seen in the posterior left temporal and occipital lobes surrounding acute to subacute hemorrhage similar to the CT 02/14/2018. 2. Trace subarachnoid hemorrhage is again seen in the right parietal lobe although less well-seen than on the previous examination. 3. 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 SL: [id number] CHEM PANEL Bili Total 0.6 mg/dL 0.2 - 1.3 02/15 [facility] CHEM PANEL AST 39 unit/L 0 - 37 02/15 [facility] /2017 CHEM PANEL Alk Phos 306 unit/L 39 - 136 02/15 [facility] CHEM PANEL Total Protein 6.4 g/dL 6.4 - 8.4 02/15 [facility] CHEM PANEL Albumin Lvl 2.3 g/dL 3.5 - 5.0 02/15 [facility] CHEM PANEL ALT 61 unit/L 0 - 65 02/15 [facility] /2017 CHEM PANEL A/G Ratio 0.6 0.7 - 1.6 02/15 [facility] CHEM PANEL Globulin 4.1 g/dL 2.7 - 4.2 02/15 [facility] CHEM PANEL B/C Ratio 18 6 - 25 02/15 [facility] HEMATOLOGY Segs 71.9 % 45.0 - 02/15 [facility] 75.0 HEMATOLOGY Basophils # 0.1 K/CMM 0.0 - 0.2 02/15 [facility] HEMATOLOGY Lymphocytes # 1.7 K/CMM 1.0 - 5.5 02/15 [facility] HEMATOLOGY Monocytes # 0.9 K/CMM 0.0 - 0.8 02/15 [facility] HEMATOLOGY Eosinophils # 0.1 K/CMM 0.0 - 0.5 02/15 [facility] HEMATOLOGY Basophils 0.7 % 0.0 - 1.0 02/15 [facility] HEMATOLOGY Segs-Bands # 7.2 K/CMM 1.5 - 8.1 02/15 [facility] HEMATOLOGY Eosinophils 1.1 % 0.0 - 4.0 02/15 [facility] /2017 HEMATOLOGY Monocytes 9.2 % 2.0 - 12.0 02/15 [facility] /2017 HEMATOLOGY Lymphocytes 17.1 % 20.0 - 02/15 [facility] 40.0 HEMATOLOGY MPV 9.8 fL 7.4 - 10.4 02/15 [facility] HEMATOLOGY MCHC 34.1 g/dL 32.0 - 02/15 [facility] 36.0 /2017 HEMATOLOGY Platelet 365 K/CMM 133 - 450 02/15 [facility] HEMATOLOGY RDW 13.4 % 11.5 - 02/15 [facility] 14.5 HEMATOLOGY Hgb 12.9 g/dL 14.0 - 02/15 [facility] 18.0 /2017 HEMATOLOGY Hct 38.0 % 42.0 - 02/15 [facility] 54.0 /2017 HEMATOLOGY RBC 4.04 M/CMM 4.70 - 02/15 [facility] 6.10 /2017 HEMATOLOGY MCH 32.0 pg 27.0 - 02/15 [facility] 31.0 HEMATOLOGY MCV 94.0 fL 80.0 - 02/15 [facility] 94.0 HEMATOLOGY WBC 10.0 K/CMM 3.7 - 10.4 02/15 [facility] URINE AND UA Mucus Few /LPF None Seen 02/14 [facility] STOOL /LPF URINE AND UA WBC 3 /HPF 0 - 5 02/14 [facility] STOOL URINE AND UA Leuk Est Negative Negative 02/14 [facility] STOOL (02/14/18 5:46 PM) URINE AND UA RBC null 0 - 2 02/14 [facility] STOOL URINE AND UA Sq Epi None Seen 02/14 [facility] STOOL URINE AND UA <=1.0 mg/dL 0.1 - 1.0 02/14 [facility] STOOL Urobilinogen URINE AND UA Nitrite Negative Negative 02/14 [facility] STOOL (02/14/18 5:46 PM) URINE AND UA Bili Negative Negative 02/14 [facility] STOOL *NA* (02/14/18 5:46 PM) URINE AND UA Blood Negative Negative 02/14 [facility] STOOL (02/14/18 5:46 PM) URINE AND UA Ketones Negative Negative 02/14 [facility] STOOL mg/dL mg/dL URINE AND UA Glucose Negative Negative 02/14 [facility] STOOL mg/dL mg/dL URINE AND UA Color Yellow Yellow 02/14 [facility] STOOL *NA* (02/14/18 5:46 PM) URINE AND UA Turbidity Clear Clear 02/14 [facility] STOOL /2017 (02/14/18 5:46 PM) URINE AND UA Protein Negative Negative 02/14 [facility] STOOL mg/dL mg/dL URINE AND UA Spec Grav 1.022 <=1.030 02/14 [facility] STOOL URINE AND UA pH 6.0 5.0 - 8.0 02/14 [facility] STOOL Abdomen AP Abdomen AP DX Clinical Indication: - firm abdomen, stool burden; 02/14 - [facility] DX - Comparison: None Read by: Ric Lewis MD Dictated Date/time: 02/14/18 16:50 FINDINGS: Electronically Signed by: Ric Lewis MD 02/14/18 16:50 FINAL REPORT The AP supine view of the abdomen shows a non-obstructive bowel gas pattern. There is no abnormal dilatation of bowel loops. Distal colon contains a large amount of stool. There is no pneumatosis or mas s effect. Surgical clips overlie the right upper quadrant. There are no clinically significant osseous abnormalities noted. IMPRESSION: Retained stool in distal colon SL: ARABELLA Chest 1view Chest 1view Patient Name: CONRADO JJ 02/14 - [facility] DX DX - : 1950; Age: 67 years y/o Male MR: [id number] Read by: Leandro Peña MD Dictated Date/time: 02/14/18 16:44 Electronically Signed by: Leandro Peña MD 02/14/18 16:46 FINAL REPORT Study: Chest 1view DX 02/14/2018 4:15 PM CDT Ordering Physician: Clinical Indication: - cough; Comparison: None 1 view chest Cardiomegaly without overt congestive heart failure or pulmonary edema. Minimal subsegmental atelectasis or fibrosis in the right lower lobe. Lungs are otherwise clear. No pleural effusion or pneumothor ax. Surgical clips overlie the right chest wall. No acute bony abnormality. IMPRESSION: Minimal subsegmental atelectasis or fibrosis in the right lung base. Mild cardiomegaly without overt congestive heart failure. No other acute findings. SL: [id number] Brain wo Brain wo STUDY: Brain wo contrast CT 02/14/2018 4:30 PM CDT 02/[address] contrast CT - Ordering Physician: Sterling Salas DO Read by: Salas Cates MD Dictated Date/time: 02/14/18 16:46 Patient Name: CONRADO JJ MR: [id number] Electronically Signed by: Salas Cates MD 02/14/18 16:52 FINAL REPORT : 1950; Age: 67 years y/o Male Clinical Indication: Follow-up intracranial hemorrhage. Comparison: None TECHNIQUE: Multiple contiguous transaxial noncontrast CT images were obtained through the head. Coronal and sagittal reformatted images were prepared. DLP: 1066.26 mGy-cm FINDINGS: BRAIN PARENCHYMA: 1. 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 2. A large area of low-attenuation is seen surrounding the areas of intermediate hyperattenuation in the posterior aspect of the left temporal lobe and left occipital lobe suggesting hemorrhagic infarc tion or contusion with surrounding vasogenic edema although hemorrhagic metastasis might have a similar appearance in the appropriate setting. 3. Trace acute subarachnoid hemorrhage is seen in the right parietal lobe. PARANASAL SINUSES: Mild diffuse mucoperiosteal thickening in the ethmoid sinus. The visualized portions of the remaining paranasal sinuses are clear. MASTOIDS: Clear. ORBITS: The visualized portions of the orbits are normal. SOFT TISSUES: No significant abnormality. SKULL: Left parietal craniotomy. IMPRESSION: 1. 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 2. A large area of low-attenuation is seen surrounding the areas of intermediate hyperattenuation in the posterior aspect of the left temporal lobe and left occipital lobe suggesting hemorrhagic infarc tion or contusion with surrounding vasogenic edema although hemorrhagic metastasis might have a similar appearance in the appropriate setting. 3. Trace acute subarachnoid hemorrhage is seen in the right parietal lobe. 4. Mild chronic sinusitis. SL: TPAINTER-PC Vital Signs Vital Sign Value Date Comments Source Systolic (mm Hg) 126 09/10/2018 [facility] Diastolic (mm Hg) 74 09/10/2018 [facility] Heart Rate 66 09/10/2018 [facility] Temperature Oral (F) 36.67 May 09/10/2018 [facility] Respitory Rate 14 09/10/2018 [facility] Height 175.3 cm 09/07/2018 [facility] Weight 72.576 09/07/2018 [facility] BMI Calculated 23.63 09/07/2018 [facility] Heart Rate 74 07/09/2018 [facility] Systolic (mm Hg) 137 07/09/2018 [facility] Diastolic (mm Hg) 82 07/09/2018 [facility] Systolic (mm Hg) 116 05/07/2018 [facility] Diastolic (mm Hg) 68 05/07/2018 [facility] Heart Rate 68 05/07/2018 [facility] Systolic (mm Hg) 137 04/30/2018 [facility] Diastolic (mm Hg) 75 04/30/2018 [facility] Heart Rate 68 04/30/2018 [facility] Heart Rate 61 04/28/2018 [facility] Respitory Rate 16 04/28/2018 [facility] Systolic (mm Hg) 132 04/28/2018 [facility] Diastolic (mm Hg) 74 04/28/2018 [facility] Heart Rate 59 04/09/2018 [facility] Systolic (mm Hg) 114 04/09/2018 [facility] Diastolic (mm Hg) 69 04/09/2018 [facility] Heart Rate 55 02/26/2018 [facility] Systolic (mm Hg) 122 02/26/2018 [facility] Diastolic (mm Hg) 67 02/26/2018 [facility] Respitory Rate 18 02/26/2018 [facility] Systolic (mm Hg) 110 02/26/2018 [facility] Respitory Rate 18 02/26/2018 [facility] Heart Rate 64 02/26/2018 [facility] Diastolic (mm Hg) 68 02/26/2018 [facility] Diastolic (mm Hg) 69 02/25/2018 [facility] Systolic (mm Hg) 121 02/25/2018 [facility] Respitory Rate 18 02/25/2018 [facility] Heart Rate 66 02/25/2018 [facility] Height 172.72 cm 02/24/2018 [facility] Temperature Oral (F) 97.6 F 02/18/2018 [facility] Temperature Oral (F) 98.3 F 02/18/2018 [facility] Weight 65.818 02/14/2018 [facility] BMI Calculated 22.06 02/14/2018 [facility] Height 172.72 cm 02/14/2018 [facility] Encounters Location Location Encounter Encounter Reason Attending ADM DC Status Source Details Type Number For Provider Date Date Visit [facility] Inpatient [id number] Shayne Brock 02/14 02/26 [facility] Tots [id number] Shayne Brock 04/09 05/09 [facility] [place] [facility] Tots [id number] Shayne Brock 04/11 04/11 [facility] [place] [facility] Outpatient [id number] Fabi 04/28 04/29 [facility] Tots [id number] Shayne Brock 05/10 06/09 [facility] [place] [facility] Tots [id number] Shayne Brock 06/11 07/11 [facility] [place] [facility] Tots [id number] Shayne Brock 07/12 08/11 [facility] [place] [facility] Tots [id number] Shayne Brock 08/13 09/12 [facility] [id number] Laura Bermeo 09/04 09/10 [place] Encounter n Acute Marisela BROWN Health ischemic left 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 stroke Aphasia 5D MED/SURG Procedure [id number] 09/06 [place] [facility] /2017 Health BT Orders Only [id number] Alli 09/08 [place] CARDIOLOGY [facility] SERVICES Procedures Procedure Code Date Perfomer Comments Source MRI BRAIN W/O 16814 09/10/2018 Brigitte Rogers CONTRAST Health TTE FOLLOW UP 82072 09/09/2018 Brigitte Rogers [place] [address] 09/09/2018 Brigitte Rogers BEDSIDE [facility] TRANSTHORACIC ECHO 36831 09/08/2018 Brigitte Rogers (TTE) Health CONSULT CLINICAL [id number] 09/08/2018 Brigitte Rogers CASE MANAGEMENT Health (RN/SW) BASIC METABOLIC 43461 09/06/2018 [facility] PANEL Health CBC/DIFF 31873 09/06/2018 [facility] MAGNESIUM 73979 09/06/2018 [facility] LIPID PROFILE 17954 09/06/2018 [facility] URINE DRUG SCREEN 37029 09/05/2018 [facility] IP CONSULT TO [id number] 09/05/2018 Jackie [facility] PHYSICAL THERAPY Health PT/INR/PTT 06689 09/05/2018 [facility] CTA HEAD W CONTRAST 16163 09/05/2018 [facility] CTA NECK W AND W/O 57859 09/05/2018 [facility] CONSULT CLINICAL [id number] 09/05/2018 [facility] CASE MANAGEMENT Health (RN/SW) VBG POC 30427 09/05/2018 [facility] BASIC METABOLIC 37812 09/05/2018 [facility] [place] [address] 09/05/2018 [facility] XRAY CHEST 2 VIEWS 65071 09/05/2018 [facility] BLOOD CULTURE 28595 09/05/2018 [facility] BLOOD CULTURE 47255 09/05/2018 [facility] FUNGUS CULTURE,BLOOD 63423 09/05/2018 [facility] [place] [address] 09/05/2018 [facility] VITAMIN B12 80610 09/05/[address] [facility] FOLIC ACID 60287 09/05/[address] [facility] CT HEAD W/O CONTRAST 50452 09/05/2018 [facility] 12 LEAD EKG 83169 09/04/2018 [facility] BMP POC 40090 09/04/2018 [facility] CBC/DIFF 71271 09/04/2018 [facility] HIV-1/HIV-2 31829 09/04/2018 [facility] DIAGNOSTIC/SYMPTOMAT Health IC MAGNESIUM 07514 09/04/2018 [facility] LIVER PROFILE 65652 09/04/2018 [facility] TSH 90872 09/04/2018 [facility] AMMONIA 27102 09/04/2018 [facility]
--- OUTSIDE RECORDS SUMMARY | 2019-04-01 21:03 | XMS REPORT ---
:1950 Author Organization [facility] Address [address] [place] [address] Dr. Cordero [address] [place] [id number] Care Team Providers Name Role Phone ROB MORENO Unavailable Unavailable Problems This patient has no known problems. Allergies, Adverse Reactions, Alerts This patient has no known allergies or adverse reactions. Medications This patient has no known medications. Encounters Start End Encounter Admission Attending Care Care Encounter Date/Time Date/Time Type Type Clinicians Facility Department ID 2018-09-10 Inpatient [facility] [id number] 07:02:05 2018-09-09 Inpatient [facility] [id number] 15:25:03 2018-09-09 Inpatient [facility] [id number] 11:35:38 2018-09-08 Inpatient [facility] [id number] 12:53:31 2018-09-07 Inpatient [facility] [id number] 09:44:00 2018-09-10 2018-09-10 Outpatient [facility] [id number] 00:00:00 00:00:00 2018-09-08 2018-09-08 Outpatient [facility] [id number] 00:00:00 00:00:00 2018-09-05 2018-09-05 Outpatient [facility] [id number] 10:26:16 10:26:16 2018-09-05 2018-09-05 Outpatient [facility] [id number] 03:02:32 03:02:32 2018-09-04 2018-09-04 Emergency [facility] [id number] 19:36:56 19:36:56 2018-09-04 2018-09-04 Inpatient [facility] [id number] 15:51:37 15:51:37 Results Test Description Test Time Test Comments Text Results Atomic Results Result Comments MAGNESIUM 2018-02-14 06:17:00 Test Item Value Reference Range Comments MAGNESIUM (BEAKER) (test eszz=228) 2.0 mg/dL 1.6-2.6 BASIC METABOLIC [id number] 06:17:00 Test Item Value Reference Range Comments SODIUM (BEAKER) (test 143 meq/L 136-145 neak=973) POTASSIUM (BEAKER) (test 3.7 meq/L 3.5-5.1 azui=152) CHLORIDE (BEAKER) (test 113 meq/L 98-107 mjdh=526) CO2 (BEAKER) (test 22 meq/L 22-29 hcab=943) BLOOD UREA NITROGEN 14 mg/dL 7-21 (BEAKER) (test efzu=164) CREATININE (BEAKER) (test 0.69 mg/dL 0.57-1.25 amtf=442) GLUCOSE RANDOM (BEAKER) 97 mg/dL 70-105 (test pucf=413) CALCIUM (BEAKER) (test 9.0 mg/dL 8.4-10.2 swvf=556) EGFR (BEAKER) (test 114 mL/min/1.73 sq m ESTIMATED GFR IS NOT lozb=4148) ACCURATE CREATININE CLEARANCE IN PREDICTING GLOMERULAR FILTRATION RATE. ESTIMATED GFR IS NOT APPLICABLE FOR DIALYSIS PATIENTS. CBC W/PLT COUNT & AUTO [id number] 05:34:00 Test Item Value Reference Range Comments WHITE BLOOD CELL COUNT (BEAKER) (test kwmz=676) 9.4 K/ L 3.5-10.5 RED BLOOD CELL COUNT (BEAKER) (test oubf=024) 4.25 M/ L 4.63-6.08 HEMOGLOBIN (BEAKER) (test more=886) 13.7 GM/DL 13.7-17.5 HEMATOCRIT (BEAKER) (test hovu=213) 40.6 % 40.1-51.0 MEAN CORPUSCULAR VOLUME (BEAKER) (test xbsn=728) 95.5 fL 79.0-92.2 MEAN CORPUSCULAR HEMOGLOBIN (BEAKER) (test 32.2 pg 25.7-32.2 erwr=461) MEAN CORPUSCULAR HEMOGLOBIN CONC (BEAKER) (test 33.7 GM/DL 32.3-36.5 vwpx=339) RED CELL DISTRIBUTION WIDTH (BEAKER) (test 13.0 % 11.6-14.4 ihsj=629) PLATELET COUNT (BEAKER) (test ixwx=141) 321 K/CU MM 150-450 MEAN PLATELET VOLUME (BEAKER) (test gkns=424) 11.0 fL 9.4-12.4 NUCLEATED RED BLOOD CELLS (BEAKER) (test 0 /100 WBC 0-0 xqpx=701) NEUTROPHILS RELATIVE PERCENT (BEAKER) (test 72 % dmqc=162) LYMPHOCYTES RELATIVE PERCENT (BEAKER) (test 17 % wodk=358) MONOCYTES RELATIVE PERCENT (BEAKER) (test 10 % pjeg=407) EOSINOPHILS RELATIVE PERCENT (BEAKER) (test 0 % umpj=548) BASOPHILS RELATIVE PERCENT (BEAKER) (test 0 % jqrl=780) NEUTROPHILS ABSOLUTE COUNT (BEAKER) (test 6.77 K/ L 1.78-5.38 wlnu=622) LYMPHOCYTES ABSOLUTE COUNT (BEAKER) (test 1.57 K/ L 1.32-3.57 ecmy=566) MONOCYTES ABSOLUTE COUNT (BEAKER) (test 0.91 K/ L 0.30-0.82 bmgf=554) EOSINOPHILS ABSOLUTE COUNT (BEAKER) (test 0.00 K/ L 0.04-0.54 cdpg=686) BASOPHILS ABSOLUTE COUNT (BEAKER) (test 0.04 K/ L 0.01-0.08 lrgv=280) IMMATURE GRANULOCYTES-RELATIVE PERCENT (BEAKER) 1 % 0-1 (test yzal=3268) POCT-GLUCOSE [id number] 05:21:00 Test Item Value Reference Range Comments POC-GLUCOSE METER (BEAKER) 105 mg/dL 70-110 TESTED AT [address] (test usdd=3125) [place] [address] POCT-GLUCOSE [id number] 01:28:00 Test Item Value Reference Range Comments POC-GLUCOSE METER (BEAKER) 108 mg/dL 70-110 TESTED AT [address] (test wcyg=6972) [place] [address] [id number] 05:19:00 Test Item Value Reference Range Comments MAGNESIUM (BEAKER) (test xuum=019) 1.8 mg/dL 1.6-2.6 BASIC METABOLIC [id number] 05:19:00 Test Item Value Reference Range Comments SODIUM (BEAKER) (test 143 meq/L 136-145 pexr=505) POTASSIUM (BEAKER) (test 3.8 meq/L 3.5-5.1 tqwg=473) CHLORIDE (BEAKER) (test 115 meq/L 98-107 aypf=321) CO2 (BEAKER) (test 21 meq/L 22-29 npej=346) BLOOD UREA NITROGEN 18 mg/dL 7-21 (BEAKER) (test ooej=142) CREATININE (BEAKER) (test 0.71 mg/dL 0.57-1.25 mddz=204) GLUCOSE RANDOM (BEAKER) 104 mg/dL 70-105 (test hfcc=039) CALCIUM (BEAKER) (test 8.8 mg/dL 8.4-10.2 oycm=617) EGFR (BEAKER) (test 111 mL/min/1.73 sq m ESTIMATED GFR IS NOT iawa=3520) ACCURATE CREATININE CLEARANCE IN PREDICTING GLOMERULAR FILTRATION RATE. ESTIMATED GFR IS NOT APPLICABLE FOR DIALYSIS PATIENTS. CBC W/PLT COUNT & AUTO [id number] 04:56:00 Test Item Value Reference Range Comments WHITE BLOOD CELL COUNT (BEAKER) (test asss=650) 9.9 K/ L 3.5-10.5 RED BLOOD CELL COUNT (BEAKER) (test nxfi=135) 4.06 M/ L 4.63-6.08 HEMOGLOBIN (BEAKER) (test tnwo=038) 12.8 GM/DL 13.7-17.5 HEMATOCRIT (BEAKER) (test apka=748) 39.0 % 40.1-51.0 MEAN CORPUSCULAR VOLUME (BEAKER) (test mple=865) 96.1 fL 79.0-92.2 MEAN CORPUSCULAR HEMOGLOBIN (BEAKER) (test 31.5 pg 25.7-32.2 dxdf=498) MEAN CORPUSCULAR HEMOGLOBIN CONC (BEAKER) (test 32.8 GM/DL 32.3-36.5 xrtn=841) RED CELL DISTRIBUTION WIDTH (BEAKER) (test 13.2 % 11.6-14.4 wbuq=104) PLATELET COUNT (BEAKER) (test hpbv=908) 293 K/CU MM 150-450 MEAN PLATELET VOLUME (BEAKER) (test nddz=235) 11.4 fL 9.4-12.4 NUCLEATED RED BLOOD CELLS (BEAKER) (test 0 /100 WBC 0-0 ibmf=697) NEUTROPHILS RELATIVE PERCENT (BEAKER) (test 72 % gsjn=294) LYMPHOCYTES RELATIVE PERCENT (BEAKER) (test 14 % oxqe=918) MONOCYTES RELATIVE PERCENT (BEAKER) (test 12 % ydll=330) EOSINOPHILS RELATIVE PERCENT (BEAKER) (test 0 % qrpu=305) BASOPHILS RELATIVE PERCENT (BEAKER) (test 1 % mxni=839) NEUTROPHILS ABSOLUTE COUNT (BEAKER) (test 7.15 K/ L 1.78-5.38 nbzk=924) LYMPHOCYTES ABSOLUTE COUNT (BEAKER) (test 1.38 K/ L 1.32-3.57 ejqe=709) MONOCYTES ABSOLUTE COUNT (BEAKER) (test 1.21 K/ L 0.30-0.82 lbpe=199) EOSINOPHILS ABSOLUTE COUNT (BEAKER) (test 0.00 K/ L 0.04-0.54 ynlr=397) BASOPHILS ABSOLUTE COUNT (BEAKER) (test 0.05 K/ L 0.01-0.08 srwb=039) IMMATURE GRANULOCYTES-RELATIVE PERCENT (BEAKER) 1 % 0-1 (test xxam=6688) POCT-GLUCOSE [id number] 00:15:00 Test Item Value Reference Range Comments POC-GLUCOSE METER (BEAKER) 104 mg/dL 70-110 TESTED AT [address] (test lbno=9916) [facility] [address] BLOOD [id number] 11:00:00 Test Item Value Reference Range Comments CULTURE (BEAKER) (test ntwg=9413) No growth in 5 days BLOOD [id number] 11:00:00 Test Item Value Reference Range Comments CULTURE (BEAKER) (test iivb=7100) No growth in 5 days [id number] 06:39:00 Test Item Value Reference Range Comments MAGNESIUM (BEAKER) (test 2.2 mg/dL 1.6-2.6 Specimen slightly hemolyzed lwfx=198) BASIC METABOLIC [id number] 06:39:00 Test Item Value Reference Range Comments SODIUM (BEAKER) (test 140 meq/L 136-145 lefi=521) POTASSIUM (BEAKER) (test 4.1 meq/L 3.5-5.1 Specimen slightly zzqo=332) hemolyzed CHLORIDE (BEAKER) (test 113 meq/L 98-107 soej=096) CO2 (BEAKER) (test 18 meq/L 22-29 ovjh=042) BLOOD UREA NITROGEN 17 mg/dL 7-21 (BEAKER) (test bzts=783) CREATININE (BEAKER) (test 0.68 mg/dL 0.57-1.25 Specimen slightly aiwm=515) hemolyzed GLUCOSE RANDOM (BEAKER) 104 mg/dL 70-105 (test muny=843) CALCIUM (BEAKER) (test 9.3 mg/dL 8.4-10.2 zegy=911) EGFR (BEAKER) (test 116 mL/min/1.73 sq m ESTIMATED GFR IS NOT cnxf=0144) ACCURATE CREATININE CLEARANCE IN PREDICTING GLOMERULAR FILTRATION RATE. ESTIMATED GFR IS NOT APPLICABLE FOR DIALYSIS PATIENTS. CBC W/PLT COUNT & AUTO [id number] 06:02:00 Test Item Value Reference Range Comments WHITE BLOOD CELL COUNT (BEAKER) (test mlqe=025) 13.0 K/ L 3.5-10.5 RED BLOOD CELL COUNT (BEAKER) (test hiur=379) 4.11 M/ L 4.63-6.08 HEMOGLOBIN (BEAKER) (test igzo=573) 13.2 GM/DL 13.7-17.5 HEMATOCRIT (BEAKER) (test pkbu=011) 39.7 % 40.1-51.0 MEAN CORPUSCULAR VOLUME (BEAKER) (test exwl=664) 96.6 fL 79.0-92.2 MEAN CORPUSCULAR HEMOGLOBIN (BEAKER) (test 32.1 pg 25.7-32.2 sotr=100) MEAN CORPUSCULAR HEMOGLOBIN CONC (BEAKER) (test 33.2 GM/DL 32.3-36.5 igxa=255) RED CELL DISTRIBUTION WIDTH (BEAKER) (test 13.2 % 11.6-14.4 whzk=492) PLATELET COUNT (BEAKER) (test vrfj=454) 300 K/CU MM 150-450 MEAN PLATELET VOLUME (BEAKER) (test qxcb=442) 11.6 fL 9.4-12.4 NUCLEATED RED BLOOD CELLS (BEAKER) (test 0 /100 WBC 0-0 npki=702) NEUTROPHILS RELATIVE PERCENT (BEAKER) (test 77 % ilgy=377) LYMPHOCYTES RELATIVE PERCENT (BEAKER) (test 11 % svpx=007) MONOCYTES RELATIVE PERCENT (BEAKER) (test 11 % rmzg=657) EOSINOPHILS RELATIVE PERCENT (BEAKER) (test 0 % rjbv=987) BASOPHILS RELATIVE PERCENT (BEAKER) (test 0 % nlte=572) NEUTROPHILS ABSOLUTE COUNT (BEAKER) (test 10.02 K/ L 1.78-5.38 jujg=672) LYMPHOCYTES ABSOLUTE COUNT (BEAKER) (test 1.47 K/ L 1.32-3.57 hodp=115) MONOCYTES ABSOLUTE COUNT (BEAKER) (test 1.40 K/ L 0.30-0.82 dsze=641) EOSINOPHILS ABSOLUTE COUNT (BEAKER) (test 0.00 K/ L 0.04-0.54 kgst=598) BASOPHILS ABSOLUTE COUNT (BEAKER) (test 0.05 K/ L 0.01-0.08 onyy=557) IMMATURE GRANULOCYTES-RELATIVE PERCENT (BEAKER) 1 % 0-1 (test vxjh=7580) FL, ESOPH, SWALLOW FUNCTION, WITH CINE OR [id number] 13:56:00Reason for exam:->dysphagiaFINAL REPORT INDICATION: Dysphagia. TECHNIQUE: [...] MDReport Verified Date/Time: 02/11/2018 13:56:12 Reading Location: [address] Consult Reading Room POCT-GLUCOSE [id number] 06:21:00 Test Item Value Reference Range Comments POC-GLUCOSE METER (BEAKER) 119 mg/dL 70-[address] [facility] [address] [facility] (test msch=4309) [facility] [address] [id number] 05:33:00 Test Item Value Reference Range Comments MAGNESIUM (BEAKER) (test oobd=811) 1.7 mg/dL 1.6-2.6 BASIC METABOLIC [id number] 05:33:00 Test Item Value Reference Range Comments SODIUM (BEAKER) (test 140 meq/L 136-145 byzr=659) POTASSIUM (BEAKER) (test 3.7 meq/L 3.5-5.1 rvbg=388) CHLORIDE (BEAKER) (test 111 meq/L 98-107 abac=916) CO2 (BEAKER) (test 20 meq/L 22-29 hsjz=812) BLOOD UREA NITROGEN 18 mg/dL 7-21 (BEAKER) (test kufl=168) CREATININE (BEAKER) (test 0.69 mg/dL 0.57-1.25 xhaf=865) GLUCOSE RANDOM (BEAKER) 119 mg/dL 70-105 (test yhvi=892) CALCIUM (BEAKER) (test 9.4 mg/dL 8.4-10.2 unso=130) EGFR (BEAKER) (test 114 mL/min/1.73 sq m ESTIMATED GFR IS NOT wtpr=7965) ACCURATE CREATININE CLEARANCE IN PREDICTING GLOMERULAR FILTRATION RATE. ESTIMATED GFR IS NOT APPLICABLE FOR DIALYSIS PATIENTS. CBC W/PLT COUNT & AUTO [id number] 05:14:00 Test Item Value Reference Range Comments WHITE BLOOD CELL COUNT (BEAKER) (test qjys=152) 11.8 K/ L 3.5-10.5 RED BLOOD CELL COUNT (BEAKER) (test jwpb=027) 4.18 M/ L 4.63-6.08 HEMOGLOBIN (BEAKER) (test exzu=116) 13.2 GM/DL 13.7-17.5 HEMATOCRIT (BEAKER) (test qfeb=982) 39.5 % 40.1-51.0 MEAN CORPUSCULAR VOLUME (BEAKER) (test fncw=934) 94.5 fL 79.0-92.2 MEAN CORPUSCULAR HEMOGLOBIN (BEAKER) (test 31.6 pg 25.7-32.2 jzlq=656) MEAN CORPUSCULAR HEMOGLOBIN CONC (BEAKER) (test 33.4 GM/DL 32.3-36.5 hmsq=795) RED CELL DISTRIBUTION WIDTH (BEAKER) (test 13.1 % 11.6-14.4 mrgj=363) PLATELET COUNT (BEAKER) (test rxzh=347) 257 K/CU MM 150-450 MEAN PLATELET VOLUME (BEAKER) (test crwh=047) 11.7 fL 9.4-12.4 NUCLEATED RED BLOOD CELLS (BEAKER) (test 0 /100 WBC 0-0 wwqh=579) NEUTROPHILS RELATIVE PERCENT (BEAKER) (test 77 % jcup=156) LYMPHOCYTES RELATIVE PERCENT (BEAKER) (test 12 % cwbz=208) MONOCYTES RELATIVE PERCENT (BEAKER) (test 10 % afht=492) EOSINOPHILS RELATIVE PERCENT (BEAKER) (test 0 % myst=107) BASOPHILS RELATIVE PERCENT (BEAKER) (test 0 % bqen=523) NEUTROPHILS ABSOLUTE COUNT (BEAKER) (test 9.12 K/ L 1.78-5.38 rgpb=163) LYMPHOCYTES ABSOLUTE COUNT (BEAKER) (test 1.39 K/ L 1.32-3.57 irda=095) MONOCYTES ABSOLUTE COUNT (BEAKER) (test 1.21 K/ L 0.30-0.82 uehq=790) EOSINOPHILS ABSOLUTE COUNT (BEAKER) (test 0.00 K/ L 0.04-0.54 tvxq=986) BASOPHILS ABSOLUTE COUNT (BEAKER) (test 0.04 K/ L 0.01-0.08 ztmz=200) IMMATURE GRANULOCYTES-RELATIVE PERCENT (BEAKER) 1 % 0-1 (test dced=7852) POCT-GLUCOSE [id number] 23:54:00 Test Item Value Reference Range Comments POC-GLUCOSE METER (BEAKER) 125 mg/dL 70-110 TESTED AT [address] (test ozml=5420) [place] [address] POCT-GLUCOSE [id number] 18:08:00 Test Item Value Reference Range Comments POC-GLUCOSE METER (BEAKER) 106 mg/dL 70-110 TESTED AT [address] (test funy=9771) [place] [address] POCT-GLUCOSE [id number] 13:26:00 Test Item Value Reference Range Comments POC-GLUCOSE METER (BEAKER) 122 mg/dL 70-110 TESTED AT [address] (test btpm=0707) [place] [address] POCT-GLUCOSE [id number] 06:11:00 Test Item Value Reference Range Comments POC-GLUCOSE METER (BEAKER) 121 mg/dL 70-110 TESTED AT [address] (test gsfs=2531) [place] [address] VANCOMYCIN LEVEL, [id number] 02:13:00 Test Item Value Reference Range Comments VANCOMYCIN TROUGH (BEAKER) (test vbto=485) 7.7 ug/mL 10.0-20.0 [id number] 02:00:00 Test Item Value Reference Range Comments MAGNESIUM (BEAKER) (test txjd=317) 1.7 mg/dL 1.6-2.6 BASIC METABOLIC [id number] 02:00:00 Test Item Value Reference Range Comments SODIUM (BEAKER) (test 141 meq/L 136-145 qslx=982) POTASSIUM (BEAKER) (test 3.7 meq/L 3.5-5.1 zzks=885) CHLORIDE (BEAKER) (test 113 meq/L 98-107 qyyc=054) CO2 (BEAKER) (test 18 meq/L 22-29 thip=383) BLOOD UREA NITROGEN 20 mg/dL 7-21 (BEAKER) (test xzxl=023) CREATININE (BEAKER) (test 0.70 mg/dL 0.57-1.25 vawj=004) GLUCOSE RANDOM (BEAKER) 127 mg/dL 70-105 (test gqhs=135) CALCIUM (BEAKER) (test 8.8 mg/dL 8.4-10.2 yito=664) EGFR (BEAKER) (test 112 mL/min/1.73 sq m ESTIMATED GFR IS NOT hrrq=3490) ACCURATE CREATININE CLEARANCE IN PREDICTING GLOMERULAR FILTRATION RATE. ESTIMATED GFR IS NOT APPLICABLE FOR DIALYSIS PATIENTS. CBC W/PLT COUNT & AUTO [id number] 01:46:00 Test Item Value Reference Range Comments WHITE BLOOD CELL COUNT (BEAKER) (test mdxx=409) 9.3 K/ L 3.5-10.5 RED BLOOD CELL COUNT (BEAKER) (test vkgq=183) 4.00 M/ L 4.63-6.08 HEMOGLOBIN (BEAKER) (test axwa=116) 12.6 GM/DL 13.7-17.5 HEMATOCRIT (BEAKER) (test sydl=488) 38.4 % 40.1-51.0 MEAN CORPUSCULAR VOLUME (BEAKER) (test iuiw=724) 96.0 fL 79.0-92.2 MEAN CORPUSCULAR HEMOGLOBIN (BEAKER) (test 31.5 pg 25.7-32.2 ljfy=049) MEAN CORPUSCULAR HEMOGLOBIN CONC (BEAKER) (test 32.8 GM/DL 32.3-36.5 bnpz=223) RED CELL DISTRIBUTION WIDTH (BEAKER) (test 13.2 % 11.6-14.4 dhxr=359) PLATELET COUNT (BEAKER) (test uczy=426) 213 K/CU MM 150-450 MEAN PLATELET VOLUME (BEAKER) (test jhkn=075) 12.0 fL 9.4-12.4 NUCLEATED RED BLOOD CELLS (BEAKER) (test 0 /100 WBC 0-0 dqao=596) NEUTROPHILS RELATIVE PERCENT (BEAKER) (test 76 % dydp=581) LYMPHOCYTES RELATIVE PERCENT (BEAKER) (test 12 % tvyt=216) MONOCYTES RELATIVE PERCENT (BEAKER) (test 11 % kgda=673) EOSINOPHILS RELATIVE PERCENT (BEAKER) (test 0 % xosx=581) BASOPHILS RELATIVE PERCENT (BEAKER) (test 0 % mvie=542) NEUTROPHILS ABSOLUTE COUNT (BEAKER) (test 7.01 K/ L 1.78-5.38 wjkx=313) LYMPHOCYTES ABSOLUTE COUNT (BEAKER) (test 1.12 K/ L 1.32-3.57 xnjd=530) MONOCYTES ABSOLUTE COUNT (BEAKER) (test 1.03 K/ L 0.30-0.82 iqlg=804) EOSINOPHILS ABSOLUTE COUNT (BEAKER) (test 0.00 K/ L 0.04-0.54 fbus=434) BASOPHILS ABSOLUTE COUNT (BEAKER) (test 0.04 K/ L 0.01-0.08 kjsn=259) IMMATURE GRANULOCYTES-RELATIVE PERCENT (BEAKER) 1 % 0-1 (test euat=8102) POCT-GLUCOSE [id number] 00:38:00 Test Item Value Reference Range Comments POC-GLUCOSE METER (BEAKER) 116 mg/dL 70-110 TESTED AT [address] (test znrm=0513) [place] [address] POCT-GLUCOSE [id number] 18:06:00 Test Item Value Reference Range Comments POC-GLUCOSE METER (BEAKER) 118 mg/dL 70-110 TESTED AT [address] (test eiou=5411) [place] [address] POCT-GLUCOSE [id number] 12:07:00 Test Item Value Reference Range Comments POC-GLUCOSE METER (BEAKER) 126 mg/dL 70-110 TESTED AT [address] (test btxs=9401) [place] [address] URINE [id number] 10:54:00 Test Item Value Reference Range Comments CULTURE (BEAKER) (test CITROBACTER WERKMANNI >100,000 col/mL cejo=5902) Citrobacter werkmanni Amikacin (test code=1) Aztreonam (test code=32) Cefepime (test code=51) Cefoxitin (test code=68) Ceftazidime (test code=27) Ceftriaxone (test code=52) Ertapenem (test code=38) Gentamicin (test code=18) Levofloxacin (test code=22) Meropenem (test code=34) Nitrofurantoin (test code=23) Piperacillin + Tazobactam (test code=29) Tetracycline (test code=2) Tobramycin (test code=25) Trimethoprim + Sulfamethoxazole (test code=47) CBC W/PLT COUNT & AUTO [id number] 10:20:00 Test Item Value Reference Range Comments WHITE BLOOD CELL COUNT (BEAKER) (test nfxh=699) 10.1 K/ L 3.5-10.5 RED BLOOD CELL COUNT (BEAKER) (test eisv=745) 3.97 M/ L 4.63-6.08 HEMOGLOBIN (BEAKER) (test hcyp=435) 12.5 GM/DL 13.7-17.5 HEMATOCRIT (BEAKER) (test imst=727) 38.8 % 40.1-51.0 MEAN CORPUSCULAR VOLUME (BEAKER) (test ylro=149) 97.7 fL 79.0-92.2 MEAN CORPUSCULAR HEMOGLOBIN (BEAKER) (test 31.5 pg 25.7-32.2 rcop=126) MEAN CORPUSCULAR HEMOGLOBIN CONC (BEAKER) (test 32.2 GM/DL 32.3-36.5 leit=187) RED CELL DISTRIBUTION WIDTH (BEAKER) (test 13.5 % 11.6-14.4 ymxm=797) PLATELET COUNT (BEAKER) (test utgj=138) 224 K/CU MM 150-450 MEAN PLATELET VOLUME (BEAKER) (test sbpu=024) 11.6 fL 9.4-12.4 NUCLEATED RED BLOOD CELLS (BEAKER) (test 0 /100 WBC 0-0 cfiv=956) NEUTROPHILS RELATIVE PERCENT (BEAKER) (test 78 % bahi=050) LYMPHOCYTES RELATIVE PERCENT (BEAKER) (test 12 % xoqe=902) MONOCYTES RELATIVE PERCENT (BEAKER) (test 9 % rdno=222) EOSINOPHILS RELATIVE PERCENT (BEAKER) (test 0 % tgoa=689) BASOPHILS RELATIVE PERCENT (BEAKER) (test 0 % yhty=103) NEUTROPHILS ABSOLUTE COUNT (BEAKER) (test 7.84 K/ L 1.78-5.38 pjlg=585) LYMPHOCYTES ABSOLUTE COUNT (BEAKER) (test 1.21 K/ L 1.32-3.57 gqai=622) MONOCYTES ABSOLUTE COUNT (BEAKER) (test 0.95 K/ L 0.30-0.82 dsqs=148) EOSINOPHILS ABSOLUTE COUNT (BEAKER) (test 0.01 K/ L 0.04-0.54 rymm=140) BASOPHILS ABSOLUTE COUNT (BEAKER) (test 0.04 K/ L 0.01-0.08 gpsd=717) IMMATURE GRANULOCYTES-RELATIVE PERCENT (BEAKER) 1 % 0-1 (test cnwi=3071) [id number] 09:52:00 Test Item Value Reference Range Comments MAGNESIUM (BEAKER) (test jlnl=692) 1.6 mg/dL 1.6-2.6 BASIC METABOLIC [id number] 09:52:00 Test Item Value Reference Range Comments SODIUM (BEAKER) (test 144 meq/L 136-145 ocof=005) POTASSIUM (BEAKER) (test 3.6 meq/L 3.5-5.1 xdah=606) CHLORIDE (BEAKER) (test 116 meq/L 98-107 jqvw=268) CO2 (BEAKER) (test 21 meq/L 22-29 irau=677) BLOOD UREA NITROGEN 23 mg/dL 7-21 (BEAKER) (test kgyp=594) CREATININE (BEAKER) (test 0.82 mg/dL 0.57-1.25 vdwb=331) GLUCOSE RANDOM (BEAKER) 118 mg/dL 70-105 (test vaot=828) CALCIUM (BEAKER) (test 9.0 mg/dL 8.4-10.2 irew=615) EGFR (BEAKER) (test 94 mL/min/1.73 sq m ESTIMATED GFR IS NOT rpcg=4515) ACCURATE CREATININE CLEARANCE IN PREDICTING GLOMERULAR FILTRATION RATE. ESTIMATED GFR IS NOT APPLICABLE FOR DIALYSIS PATIENTS. POCT-GLUCOSE [id number] 06:02:00 Test Item Value Reference Range Comments POC-GLUCOSE METER (BEAKER) 117 mg/dL 70-110 TESTED AT [address] (test nfnk=7630) [facility] [address] SPUTUM CULTURE + GRAM [id number] 13:31:00 Test Item Value Reference Range Comments CULTURE (BEAKER) (test STAPHYLOCOCCUS AUREUS 3+ Staphylococcus gttv=9189) aureus Clindamycin (test code=10) Erythromycin (test code=4) Linezolid (test code=40) Nitrofurantoin (test code=23) Oxacillin (test code=14) Rifampin (test code=43) Tetracycline (test code=2) Trimethoprim + Sulfamethoxazole (test code=47) Vancomycin (test code=13) CULTURE (BEAKER) (test 4+ Haemophilus taph=0803) influenzaeBeta-lactama se negative GRAM STAIN RESULT 4+ WBCs (BEAKER) (test ldyx=5985) GRAM STAIN RESULT 0-5 epithelial cells (BEAKER) (test psgz=568084) GRAM STAIN RESULT 4+ gram negative (BEAKER) (test coccobacilli kvik=852578) GRAM STAIN RESULT 4+ gram positive cocci (BEAKER) (test in chains, pairs and gfjr=777545) clusters 3+ Normal respiratory carla presentPOCT-GLUCOSE [id number] 12:11:00 Test Item Value Reference Range Comments POC-GLUCOSE METER (BEAKER) 130 mg/dL 70-[address] [facility] [address] (test fivw=4903) [facility] [address] CBC W/PLT COUNT & AUTO [id number] 11:19:00 Test Item Value Reference Range Comments WHITE BLOOD CELL COUNT (BEAKER) (test vuen=301) 13.2 K/ L 3.5-10.5 RED BLOOD CELL COUNT (BEAKER) (test hpkf=889) 4.32 M/ L 4.63-6.08 HEMOGLOBIN (BEAKER) (test crpx=334) 14.0 GM/DL 13.7-17.5 HEMATOCRIT (BEAKER) (test tqkv=123) 41.4 % 40.1-51.0 MEAN CORPUSCULAR VOLUME (BEAKER) (test kwwh=126) 95.8 fL 79.0-92.2 MEAN CORPUSCULAR HEMOGLOBIN (BEAKER) (test 32.4 pg 25.7-32.2 ihxi=204) MEAN CORPUSCULAR HEMOGLOBIN CONC (BEAKER) (test 33.8 GM/DL 32.3-36.5 jguf=054) RED CELL DISTRIBUTION WIDTH (BEAKER) (test 13.5 % 11.6-14.4 ugvz=424) PLATELET COUNT (BEAKER) (test ztpy=495) 219 K/CU MM 150-450 MEAN PLATELET VOLUME (BEAKER) (test bcbb=902) 11.2 fL 9.4-12.4 NUCLEATED RED BLOOD CELLS (BEAKER) (test 0 /100 WBC 0-0 scsx=660) IMMATURE GRANULOCYTES-RELATIVE PERCENT (BEAKER) 1 % 0-1 (test hmmj=5420) (MANUAL DIFFERENTIAL)[id number] 11:19:00 Test Item Value Reference Range Comments NEUTROPHILS - REL (DIFF) (BEAKER) (test 81 % qitg=2808) LYMPHOCYTES - REL (DIFF) (BEAKER) (test 6 % jdkp=7556) MONOCYTES - REL (DIFF) (BEAKER) (test fyzd=4130) 9 % BANDS - REL (DIFF) (BEAKER) (test fgab=7505) 4 % 0-10 NEUTROPHILS - ABS (DIFF) (BEAKER) (test 10.69 K/ L 1.80-8.00 kygw=3248) LYMPHOCYTES - ABS (DIFF) (BEAKER) (test 0.79 K/ L 1.48-4.50 vkrv=5365) MONOCYTES - ABS (DIFF) (BEAKER) (test odfr=3966) 1.19 K/ L 0.00-1.30 BANDS-ABS (DIFF) (BEAKER) (test utqm=2436) 0.5 K/ L 0.0-0.8 TOTAL COUNTED (BEAKER) (test aqrq=6927) 100 BANDS + SEGMENTED NEUTROPHILS (BEAKER) (test 11.22 qllh=6878) WBC MORPHOLOGY (BEAKER) (test chkw=913) Normal RBC MORPHOLOGY (BEAKER) (test tmlh=152) Normal LARGE PLT(BEAKER) (test bath=7880) Present VANCOMYCIN LEVEL, [id number] 10:54:00 Test Item Value Reference Range Comments VANCOMYCIN TROUGH (BEAKER) (test qlxl=133) 4.9 ug/mL 10.0-20.0 [id number] 05:55:00 Test Item Value Reference Range Comments MAGNESIUM (BEAKER) (test 2.1 mg/dL 1.6-2.6 Specimen slightly hemolyzed zkix=510) BASIC METABOLIC [id number] 05:55:00 Test Item Value Reference Range Comments SODIUM (BEAKER) (test 150 meq/L 136-145 xdmf=248) POTASSIUM (BEAKER) (test 3.7 meq/L 3.5-5.1 Specimen slightly dsrk=004) hemolyzed CHLORIDE (BEAKER) (test 120 meq/L 98-107 cmww=719) CO2 (BEAKER) (test 18 meq/L 22-29 mygk=340) BLOOD UREA NITROGEN 28 mg/dL 7-21 (BEAKER) (test tndg=630) CREATININE (BEAKER) (test 0.95 mg/dL 0.57-1.25 Specimen slightly jpwg=611) hemolyzed GLUCOSE RANDOM (BEAKER) 136 mg/dL 70-105 (test asqe=471) CALCIUM (BEAKER) (test 9.6 mg/dL 8.4-10.2 feyw=713) EGFR (BEAKER) (test 79 mL/min/1.73 sq m ESTIMATED GFR IS NOT tpxn=2730) ACCURATE CREATININE CLEARANCE IN PREDICTING GLOMERULAR FILTRATION RATE. ESTIMATED GFR IS NOT APPLICABLE FOR DIALYSIS PATIENTS. POCT-GLUCOSE [id number] 05:54:00 Test Item Value Reference Range Comments POC-GLUCOSE METER (BEAKER) 142 mg/dL 70-110 TESTED AT [address] (test latq=6708) [place] [address] POCT-GLUCOSE [id number] 01:01:00 Test Item Value Reference Range Comments POC-GLUCOSE METER (BEAKER) 128 mg/dL 70-110 TESTED AT [address] (test lybt=1566) [place] [address] POCT-GLUCOSE [id number] 17:53:00 Test Item Value Reference Range Comments POC-GLUCOSE METER (BEAKER) 123 mg/dL 70-110 TESTED AT [address] (test sjij=7737) [place] [address] POCT-GLUCOSE [id number] 12:36:00 Test Item Value Reference Range Comments POC-GLUCOSE METER (BEAKER) 136 mg/dL 70-110 TESTED AT [address] (test vqfu=4362) [place] [address] CBC W/PLT COUNT & AUTO [id number] 11:39:00 Test Item Value Reference Range Comments WHITE BLOOD CELL COUNT (BEAKER) (test svfi=056) 14.1 K/ L 3.5-10.5 RED BLOOD CELL COUNT (BEAKER) (test blmj=407) 4.59 M/ L 4.63-6.08 HEMOGLOBIN (BEAKER) (test ddpc=544) 14.7 GM/DL 13.7-17.5 HEMATOCRIT (BEAKER) (test sihd=623) 43.4 % 40.1-51.0 MEAN CORPUSCULAR VOLUME (BEAKER) (test arbp=368) 94.6 fL 79.0-92.2 MEAN CORPUSCULAR HEMOGLOBIN (BEAKER) (test 32.0 pg 25.7-32.2 maki=976) MEAN CORPUSCULAR HEMOGLOBIN CONC (BEAKER) (test 33.9 GM/DL 32.3-36.5 kztp=970) RED CELL DISTRIBUTION WIDTH (BEAKER) (test 13.3 % 11.6-14.4 fdpp=534) PLATELET COUNT (BEAKER) (test ooom=994) 227 K/CU MM 150-450 MEAN PLATELET VOLUME (BEAKER) (test fvrm=362) 10.6 fL 9.4-12.4 NUCLEATED RED BLOOD CELLS (BEAKER) (test 0 /100 WBC 0-0 edxb=824) NEUTROPHILS RELATIVE PERCENT (BEAKER) (test 85 % lfoc=032) LYMPHOCYTES RELATIVE PERCENT (BEAKER) (test 3 % jkch=247) MONOCYTES RELATIVE PERCENT (BEAKER) (test 11 % dero=458) EOSINOPHILS RELATIVE PERCENT (BEAKER) (test 0 % qzea=071) BASOPHILS RELATIVE PERCENT (BEAKER) (test 0 % ocnq=196) NEUTROPHILS ABSOLUTE COUNT (BEAKER) (test 11.93 K/ L 1.78-5.38 ylus=484) LYMPHOCYTES ABSOLUTE COUNT (BEAKER) (test 0.48 K/ L 1.32-3.57 oofc=484) MONOCYTES ABSOLUTE COUNT (BEAKER) (test 1.57 K/ L 0.30-0.82 epfv=736) EOSINOPHILS ABSOLUTE COUNT (BEAKER) (test 0.00 K/ L 0.04-0.54 pggo=654) BASOPHILS ABSOLUTE COUNT (BEAKER) (test 0.03 K/ L 0.01-0.08 nxyg=622) IMMATURE GRANULOCYTES-RELATIVE PERCENT (BEAKER) 1 % 0-1 (test yqzf=8932) (MANUAL DIFFERENTIAL)2018-02-07 11:39:00 Test Item Value Reference Range Comments TOTAL COUNTED (BEAKER) (test flyt=3172) WBC MORPHOLOGY (BEAKER) (test wszd=224) Normal PLT MORPHOLOGY (BEAKER) (test zkph=899) Normal RBC MORPHOLOGY (BEAKER) (test zval=720) Normal POCT-GLUCOSE [id number] 07:00:00 Test Item Value Reference Range Comments POC-GLUCOSE METER (BEAKER) 101 mg/dL 70-[address] [facility] [address] [facility] (test bvlc=9988) [facility] [address] BASIC METABOLIC [id number] 06:30:00 Test Item Value Reference Range Comments SODIUM (BEAKER) (test 153 meq/L 136-145 zbqb=363) POTASSIUM (BEAKER) (test 3.5 meq/L 3.5-5.1 qrqf=432) CHLORIDE (BEAKER) (test 120 meq/L 98-107 oeun=642) CO2 (BEAKER) (test 17 meq/L 22-29 jcip=358) BLOOD UREA NITROGEN 23 mg/dL 7-21 (BEAKER) (test gjoh=538) CREATININE (BEAKER) (test 1.01 mg/dL 0.57-1.25 jazh=994) GLUCOSE RANDOM (BEAKER) 102 mg/dL 70-105 (test jrse=228) CALCIUM (BEAKER) (test 9.9 mg/dL 8.4-10.2 xovo=887) EGFR (BEAKER) (test 74 mL/min/1.73 sq m ESTIMATED GFR IS NOT gldm=3176) ACCURATE CREATININE CLEARANCE IN PREDICTING GLOMERULAR FILTRATION RATE. ESTIMATED GFR IS NOT APPLICABLE FOR DIALYSIS PATIENTS. Specimen slightly ictericPROTHROMBIN TIME/[id number] 05:52:00 Test Item Value Reference Range Comments PROTIME (BEAKER) (test jkxg=103) 17.4 seconds 11.7-14.7 INR (BEAKER) (test wexl=017) 1.4 <=5.9 RECOMMENDED COUMADIN/WARFARIN INR THERAPY RANGESSTANDARD DOSE: 2.0 - 3.0 Includes: PROPHYLAXIS forvenous thrombosis, systemic embolization; TREATMENT for venous thrombosis and/or pulmonary embolus.HIGH RISK: Target INR is 2.5-3.5 for patients with mechanical heart valves.[id number] 05:52:00 Test Item Value Reference Range Comments PARTIAL THROMBOPLASTIN TIME (BEAKER) (test 32.3 seconds 22.5-36.0 vabe=494) URINALYSIS W/ [id number] 00:07:00 Test Item Value Reference Range Comments COLOR (BEAKER) (test qmdr=057) Yellow CLARITY (BEAKER) (test fgio=379) Hazy SPECIFIC GRAVITY UA (BEAKER) (test npuy=975) 1.030 1.001-1.035 PH UA (BEAKER) (test hdsz=102) 6.0 5.0-8.0 PROTEIN UA (BEAKER) (test gpwo=103) Negative Negative GLUCOSE UA (BEAKER) (test hmdn=191) Negative Negative KETONES UA (BEAKER) (test cjig=726) Negative Negative BILIRUBIN UA (BEAKER) (test tcbs=859) Negative Negative BLOOD UA (BEAKER) (test dppk=190) Small Negative NITRITE UA (BEAKER) (test ecek=428) Negative Negative LEUKOCYTE ESTERASE UA (BEAKER) (test fqct=653) Trace Negative UROBILINOGEN UA (BEAKER) (test thpb=816) 0.2 mg/dL 0.2-1.0 RBC UA (BEAKER) (test isob=069) 1 /HPF WBC UA (BEAKER) (test ikfq=203) 2 /HPF BACTERIA (BEAKER) (test kwmt=029) Rare SOURCE(BEAKER) (test hmhw=4142) POCT-GLUCOSE [id number] 23:07:00 Test Item Value Reference Range Comments POC-GLUCOSE METER (BEAKER) 109 mg/dL 70-110 TESTED AT [address] (test ebdv=8955) [facility] [address] RAD, CHEST, 1 VIEW, NON [id number] 21:27:00Reason for exam:->fever, tachypnea, high risk of [...] MDReport Verified Date/Time: 02/06/2018 21:27:48 Reading Location: [facility] B1 C013Y CT Body Reading Room POCT-GLUCOSE [id number] 17:40:00 Test Item Value Reference Range Comments POC-GLUCOSE METER (BEAKER) 108 mg/dL 70-110 TESTED AT [address] (test ooge=6568) [place] [address] RAD, ABDOMEN/KUB, 1 VIEW [id number] 17:35:00Reason for exam:->check corpak placementFINAL REPORT AP abdomen HISTORY: Feeding tube COMPARISON: 02/04/2018 IMPRESSION:Feeding tube advanced, remaining along the greater curvature the stomach, not transpyloric. Signed:Christiano Burk Verified Date/Time: 02/06/2018 17:35:54 Reading Location: [facility] Mammo Reading Room Electronically signed by: CHRISTIANO BURK M.D. on 2017 05:35 PMPOCT-GLUCOSE [id number] 11:47:00 Test Item Value Reference Range Comments POC-GLUCOSE METER (BEAKER) 108 mg/dL 70-110 TESTED AT [address] (test vlmo=8067) [place] [address] [id number] 06:20:00 Test Item Value Reference Range Comments PHOSPHORUS (BEAKER) (test bzbd=509) 3.2 mg/dL 2.3-4.7 [id number] 06:20:00 Test Item Value Reference Range Comments MAGNESIUM (BEAKER) (test zdwa=453) 1.9 mg/dL 1.6-2.6 BASIC METABOLIC [id number] 06:20:00 Test Item Value Reference Range Comments SODIUM (BEAKER) (test 143 meq/L 136-145 lvxf=620) POTASSIUM (BEAKER) (test 3.9 meq/L 3.5-5.1 cghc=370) CHLORIDE (BEAKER) (test 114 meq/L 98-107 hwrr=391) CO2 (BEAKER) (test 20 meq/L 22-29 nkxp=524) BLOOD UREA NITROGEN 22 mg/dL 7-21 (BEAKER) (test ljru=269) CREATININE (BEAKER) (test 0.85 mg/dL 0.57-1.25 ewgf=735) GLUCOSE RANDOM (BEAKER) 121 mg/dL 70-105 (test jnym=136) CALCIUM (BEAKER) (test 10.0 mg/dL 8.4-10.2 ffpj=893) EGFR (BEAKER) (test 90 mL/min/1.73 sq m ESTIMATED GFR IS NOT lifl=3083) ACCURATE CREATININE CLEARANCE IN PREDICTING GLOMERULAR FILTRATION RATE. ESTIMATED GFR IS NOT APPLICABLE FOR DIALYSIS PATIENTS. POCT-GLUCOSE [id number] 06:18:00 Test Item Value Reference Range Comments POC-GLUCOSE METER (BEAKER) 117 mg/dL 70-[address] [facility] [address] [facility] (test wnjd=1116) [facility] [address] CBC W/PLT COUNT & AUTO [id number] 06:00:00 Test Item Value Reference Range Comments WHITE BLOOD CELL COUNT (BEAKER) (test rses=277) 10.5 K/ L 3.5-10.5 RED BLOOD CELL COUNT (BEAKER) (test ueal=252) 4.52 M/ L 4.63-6.08 HEMOGLOBIN (BEAKER) (test eoaj=373) 14.4 GM/DL 13.7-17.5 HEMATOCRIT (BEAKER) (test fmrg=356) 42.1 % 40.1-51.0 MEAN CORPUSCULAR VOLUME (BEAKER) (test vnij=745) 93.1 fL 79.0-92.2 MEAN CORPUSCULAR HEMOGLOBIN (BEAKER) (test 31.9 pg 25.7-32.2 gukk=961) MEAN CORPUSCULAR HEMOGLOBIN CONC (BEAKER) (test 34.2 GM/DL 32.3-36.5 qmeh=038) RED CELL DISTRIBUTION WIDTH (BEAKER) (test 13.2 % 11.6-14.4 nmjl=360) PLATELET COUNT (BEAKER) (test sywg=735) 204 K/CU MM 150-450 MEAN PLATELET VOLUME (BEAKER) (test yqyk=598) 10.7 fL 9.4-12.4 NUCLEATED RED BLOOD CELLS (BEAKER) (test 0 /100 WBC 0-0 smyl=440) NEUTROPHILS RELATIVE PERCENT (BEAKER) (test 77 % sydu=029) LYMPHOCYTES RELATIVE PERCENT (BEAKER) (test 8 % wgth=683) MONOCYTES RELATIVE PERCENT (BEAKER) (test 15 % vdcg=989) EOSINOPHILS RELATIVE PERCENT (BEAKER) (test 0 % rosj=070) BASOPHILS RELATIVE PERCENT (BEAKER) (test 0 % knhn=980) NEUTROPHILS ABSOLUTE COUNT (BEAKER) (test 8.06 K/ L 1.78-5.38 wimp=936) LYMPHOCYTES ABSOLUTE COUNT (BEAKER) (test 0.83 K/ L 1.32-3.57 eahc=011) MONOCYTES ABSOLUTE COUNT (BEAKER) (test 1.53 K/ L 0.30-0.82 zuky=572) EOSINOPHILS ABSOLUTE COUNT (BEAKER) (test 0.00 K/ L 0.04-0.54 ydfa=811) BASOPHILS ABSOLUTE COUNT (BEAKER) (test 0.03 K/ L 0.01-0.08 lgvg=472) IMMATURE GRANULOCYTES-RELATIVE PERCENT (BEAKER) 0 % 0-1 (test btjj=2485) POCT-GLUCOSE [id number] 00:52:00 Test Item Value Reference Range Comments POC-GLUCOSE METER (BEAKER) 129 mg/dL 70-[address] [facility] [address] [facility] (test kqxr=6036) [facility] [address] PROTHROMBIN [id number] 00:32:00 Test Item Value Reference Range Comments PROTIME (BEAKER) (test kzaf=344) 15.2 seconds 11.7-14.7 INR (BEAKER) (test jktv=551) 1.2 <=5.9 RECOMMENDED COUMADIN/WARFARIN INR THERAPY RANGESSTANDARD DOSE: 2.0 - 3.0 Includes: PROPHYLAXIS forvenous thrombosis, systemic embolization; TREATMENT for venous thrombosis and/or pulmonary embolus.HIGH RISK: Target INR is 2.5-3.5 for patients with mechanical heart valves.POCT-GLUCOSE [id number] 00:25:00 Test Item Value Reference Range Comments POC-GLUCOSE METER (BEAKER) 113 mg/dL 70-110 TESTED AT [address] (test lplm=4470) [place] [address] POCT-GLUCOSE [id number] 18:42:00 Test Item Value Reference Range Comments POC-GLUCOSE METER (BEAKER) 131 mg/dL 70-110 TESTED AT [address] (test xnyf=0628) [place] [address] BASIC METABOLIC [id number] 15:45:00 Test Item Value Reference Range Comments SODIUM (BEAKER) (test 143 meq/L 136-145 cnau=652) POTASSIUM (BEAKER) (test 3.5 meq/L 3.5-5.1 rqcx=044) CHLORIDE (BEAKER) (test 114 meq/L 98-107 zgmv=359) CO2 (BEAKER) (test 17 meq/L 22-29 vaca=810) BLOOD UREA NITROGEN 19 mg/dL 7-21 (BEAKER) (test jomq=172) CREATININE (BEAKER) (test 0.71 mg/dL 0.57-1.25 gixu=570) GLUCOSE RANDOM (BEAKER) 118 mg/dL 70-105 (test kshk=781) CALCIUM (BEAKER) (test 9.4 mg/dL 8.4-10.2 tlbk=240) EGFR (BEAKER) (test 111 mL/min/1.73 sq m ESTIMATED GFR IS NOT yaoe=5001) ACCURATE CREATININE CLEARANCE IN PREDICTING GLOMERULAR FILTRATION RATE. ESTIMATED GFR IS NOT APPLICABLE FOR DIALYSIS PATIENTS. POCT-GLUCOSE [id number] 12:52:00 Test Item Value Reference Range Comments POC-GLUCOSE METER (BEAKER) 101 mg/dL 70-110 TESTED AT [address] (test bber=4642) [place] [address] BASIC METABOLIC [id number] 11:57:00 Test Item Value Reference Range Comments SODIUM (BEAKER) (test 146 meq/L 136-145 This is a corrected mmwb=033) result. Previous result was 141 meq/L on 02/05/2018 at 0751 CDT POTASSIUM (BEAKER) (test 3.5 meq/L 3.5-5.1 hmmd=939) CHLORIDE (BEAKER) (test 115 meq/L 98-107 ocll=459) CO2 (BEAKER) (test 16 meq/L 22-29 jobu=139) BLOOD UREA NITROGEN 19 mg/dL 7-21 (BEAKER) (test damk=235) CREATININE (BEAKER) (test 0.74 mg/dL 0.57-1.25 szos=059) GLUCOSE RANDOM (BEAKER) 111 mg/dL 70-105 (test drzo=601) CALCIUM (BEAKER) (test 9.1 mg/dL 8.4-10.2 oqsh=200) EGFR (BEAKER) (test 105 mL/min/1.73 sq m ESTIMATED GFR IS NOT xapf=0390) ACCURATE CREATININE CLEARANCE IN PREDICTING GLOMERULAR FILTRATION RATE. ESTIMATED GFR IS NOT APPLICABLE FOR DIALYSIS PATIENTS. [id number] 07:51:00 Test Item Value Reference Range Comments PHOSPHORUS (BEAKER) (test wiwf=742) 2.9 mg/dL 2.3-4.7 [id number] 07:51:00 Test Item Value Reference Range Comments MAGNESIUM (BEAKER) (test kkuo=066) 2.1 mg/dL 1.6-2.6 POCT-GLUCOSE [id number] 05:53:00 Test Item Value Reference Range Comments POC-GLUCOSE METER (BEAKER) 114 mg/dL 70-[address] [facility] [address] [facility] (test aqwa=8281) [facility] [address] CBC W/PLT COUNT & AUTO [id number] 04:49:00 Test Item Value Reference Range Comments WHITE BLOOD CELL COUNT (BEAKER) (test foss=577) 7.3 K/ L 3.5-10.5 RED BLOOD CELL COUNT (BEAKER) (test tjpg=987) 4.38 M/ L 4.63-6.08 HEMOGLOBIN (BEAKER) (test idud=890) 14.2 GM/DL 13.7-17.5 HEMATOCRIT (BEAKER) (test tbzx=660) 40.9 % 40.1-51.0 MEAN CORPUSCULAR VOLUME (BEAKER) (test nbxz=108) 93.4 fL 79.0-92.2 MEAN CORPUSCULAR HEMOGLOBIN (BEAKER) (test 32.4 pg 25.7-32.2 qybh=838) MEAN CORPUSCULAR HEMOGLOBIN CONC (BEAKER) (test 34.7 GM/DL 32.3-36.5 pqzv=087) RED CELL DISTRIBUTION WIDTH (BEAKER) (test 13.1 % 11.6-14.4 mkle=085) PLATELET COUNT (BEAKER) (test rjry=255) 161 K/CU MM 150-450 MEAN PLATELET VOLUME (BEAKER) (test ixfo=189) 10.6 fL 9.4-12.4 NUCLEATED RED BLOOD CELLS (BEAKER) (test 0 /100 WBC 0-0 levq=073) NEUTROPHILS RELATIVE PERCENT (BEAKER) (test 70 % knoq=946) LYMPHOCYTES RELATIVE PERCENT (BEAKER) (test 11 % lqfn=704) MONOCYTES RELATIVE PERCENT (BEAKER) (test 18 % obug=026) EOSINOPHILS RELATIVE PERCENT (BEAKER) (test 0 % jmsz=523) BASOPHILS RELATIVE PERCENT (BEAKER) (test 1 % gmmo=441) NEUTROPHILS ABSOLUTE COUNT (BEAKER) (test 5.15 K/ L 1.78-5.38 gtcr=674) LYMPHOCYTES ABSOLUTE COUNT (BEAKER) (test 0.79 K/ L 1.32-3.57 loxs=906) MONOCYTES ABSOLUTE COUNT (BEAKER) (test 1.31 K/ L 0.30-0.82 zkjh=629) EOSINOPHILS ABSOLUTE COUNT (BEAKER) (test 0.00 K/ L 0.04-0.54 etob=204) BASOPHILS ABSOLUTE COUNT (BEAKER) (test 0.04 K/ L 0.01-0.08 hoce=658) IMMATURE GRANULOCYTES-RELATIVE PERCENT (BEAKER) 1 % 0-1 (test duzb=6228) POCT-GLUCOSE [id number] 00:02:00 Test Item Value Reference Range Comments POC-GLUCOSE METER (BEAKER) 115 mg/dL 70-110 TESTED AT [address] (test bolt=0312) [facility] [address] POCT-GLUCOSE [id number] 19:23:00 Test Item Value Reference Range Comments POC-GLUCOSE METER (BEAKER) 108 mg/dL 70-110 TESTED AT [address] (test hpos=5406) [facility] [address] [id number] 18:25:00 Test Item Value Reference Range Comments MAGNESIUM (BEAKER) (test uonf=482) 1.9 mg/dL 1.6-2.6 Check Serum Phosphorus level 4 hours after IV phosphorus replacement or 8 hours after PO replacementcompleted.8 hours after PO replacement [id number] 18:25:00 Test Item Value Reference Range Comments PHOSPHORUS (BEAKER) (test hdab=569) 2.7 mg/dL 2.3-4.7 Check Serum Phosphorus level 4 hours after IV phosphorus replacement or 8 hours after PO replacementcompleted.8 hours after PO replacement [id number] 18:25:00 Test Item Value Reference Range Comments POTASSIUM (BEAKER) (test oaxt=091) 4.2 meq/L 3.5-5.1 Check Serum Phosphorus level 4 hours after IV phosphorus replacement or 8 hours after PO replacementcompleted.8 hours after PO replacement completedRAD, ABDOMEN /KUB, 1 VIEW [id number] 13:13:00Reason for exam:->corpak Should this be performed at the bedside?->YesFINAL REPORT AP abdomen HISTORY: Feeding tube COMPARISON: None IMPRESSION:Feeding tube present projecting within the stomach. Bowel gas pattern not well assessed but grossly nonobstructive. Signed: Christiano Burk MDReport Verified Date/Time: 2017 13:13:34 Reading Location: [facility] POCT-GLUCOSE [id number] 12:24:00 Test Item Value Reference Range Comments POC-GLUCOSE METER (BEAKER) 103 mg/dL 70-110 TESTED AT [address] (test pbcj=5975) [facility] [address] POCT-GLUCOSE [id number] 06:15:00 Test Item Value Reference Range Comments POC-GLUCOSE METER (BEAKER) 95 mg/dL 70-110 TESTED AT [address] (test llle=7290) [facility] [address] [id number] 03:37:00 Test Item Value Reference Range Comments PHOSPHORUS (BEAKER) (test xwme=837) 2.2 mg/dL 2.3-4.7 [id number] 03:37:00 Test Item Value Reference Range Comments MAGNESIUM (BEAKER) (test pacn=487) 1.7 mg/dL 1.6-2.6 BASIC METABOLIC [id number] 03:37:00 Test Item Value Reference Range Comments SODIUM (BEAKER) (test 141 meq/L 136-145 ohzo=153) POTASSIUM (BEAKER) (test 3.8 meq/L 3.5-5.1 cthp=955) CHLORIDE (BEAKER) (test 113 meq/L 98-107 lfml=685) CO2 (BEAKER) (test 17 meq/L 22-29 unyc=907) BLOOD UREA NITROGEN 16 mg/dL 7-21 (BEAKER) (test ejhd=858) CREATININE (BEAKER) (test 0.80 mg/dL 0.57-1.25 ifla=113) GLUCOSE RANDOM (BEAKER) 99 mg/dL 70-105 (test nzzr=291) CALCIUM (BEAKER) (test 8.1 mg/dL 8.4-10.2 spmy=463) EGFR (BEAKER) (test 96 mL/min/1.73 sq m ESTIMATED GFR IS NOT uulp=5261) ACCURATE CREATININE CLEARANCE IN PREDICTING GLOMERULAR FILTRATION RATE. ESTIMATED GFR IS NOT APPLICABLE FOR DIALYSIS PATIENTS. CBC W/PLT COUNT & AUTO [id number] 03:36:00 Test Item Value Reference Range Comments WHITE BLOOD CELL COUNT (BEAKER) (test schd=344) 7.1 K/ L 3.5-10.5 RED BLOOD CELL COUNT (BEAKER) (test laxp=551) 4.33 M/ L 4.63-6.08 HEMOGLOBIN (BEAKER) (test spms=657) 13.6 GM/DL 13.7-17.5 HEMATOCRIT (BEAKER) (test udcy=465) 40.1 % 40.1-51.0 MEAN CORPUSCULAR VOLUME (BEAKER) (test ukpl=969) 92.6 fL 79.0-92.2 MEAN CORPUSCULAR HEMOGLOBIN (BEAKER) (test 31.4 pg 25.7-32.2 nfhn=443) MEAN CORPUSCULAR HEMOGLOBIN CONC (BEAKER) (test 33.9 GM/DL 32.3-36.5 ghqq=239) RED CELL DISTRIBUTION WIDTH (BEAKER) (test 12.8 % 11.6-14.4 lxne=146) PLATELET COUNT (BEAKER) (test ujlt=979) 169 K/CU MM 150-450 MEAN PLATELET VOLUME (BEAKER) (test cdam=903) 10.4 fL 9.4-12.4 NUCLEATED RED BLOOD CELLS (BEAKER) (test 0 /100 WBC 0-0 xevd=545) NEUTROPHILS RELATIVE PERCENT (BEAKER) (test 78 % hajm=207) LYMPHOCYTES RELATIVE PERCENT (BEAKER) (test 9 % rkzs=645) MONOCYTES RELATIVE PERCENT (BEAKER) (test 13 % brpw=056) EOSINOPHILS RELATIVE PERCENT (BEAKER) (test 0 % nxja=537) BASOPHILS RELATIVE PERCENT (BEAKER) (test 0 % jvtm=390) NEUTROPHILS ABSOLUTE COUNT (BEAKER) (test 5.55 K/ L 1.78-5.38 mclh=998) LYMPHOCYTES ABSOLUTE COUNT (BEAKER) (test 0.61 K/ L 1.32-3.57 ewwj=921) MONOCYTES ABSOLUTE COUNT (BEAKER) (test 0.90 K/ L 0.30-0.82 nprp=049) EOSINOPHILS ABSOLUTE COUNT (BEAKER) (test 0.00 K/ L 0.04-0.54 umfo=079) BASOPHILS ABSOLUTE COUNT (BEAKER) (test 0.03 K/ L 0.01-0.08 wnib=416) IMMATURE GRANULOCYTES-RELATIVE PERCENT (BEAKER) 0 % 0-1 (test nygf=9107) POCT-GLUCOSE [id number] 00:31:00 Test Item Value Reference Range Comments POC-GLUCOSE METER (BEAKER) 111 mg/dL 70-110 TESTED AT [address] (test xgra=2679) [place] [address] POCT-GLUCOSE [id number] 18:42:00 Test Item Value Reference Range Comments POC-GLUCOSE METER (BEAKER) 91 mg/dL 70-110 TESTED AT [address] (test kahi=9102) [place] [address] POCT-GLUCOSE [id number] 15:25:00 Test Item Value Reference Range Comments POC-GLUCOSE METER (BEAKER) 92 mg/dL 70-110 TESTED AT [address] (test zapz=9481) [place] [address] CT BRAIN WITHOUT IV CONTRAST - [id number] 13:09:00Reason for exam:-> follow up EVD removalFINAL [...] mass effect are stable. Signed: Shante Rojas MDRort Verified Date/Time: 02/03/2018 13:09:24 Reading Location: [facility] C013V Neuro Reading Room Electronically signed by: SHANTE ROJAS M.D. on 2017 01:09 PMHEPATITIS PANEL, [id number] 06:20:00 Test Item Value Reference Range Comments HEPATITIS A IGM ANTIBODY (BEAKER) (test Nonreactive Nonreactive ddnt=598) HEPATITIS B CORE IGM ANTIBODY (BEAKER) (test Nonreactive Nonreactive gecc=313) HEPATITIS C ANTIBODY (BEAKER) (test zpcy=279) Reactive Nonreactive HEPATITIS B SURFACE ANTIGEN (2) (BEAKER) (test Nonreactive Nonreactive dety=4063) [id number] 04:57:00 Test Item Value Reference Range Comments MAGNESIUM (BEAKER) (test xxxr=856) 1.9 mg/dL 1.6-2.6 BASIC METABOLIC [id number] 04:57:00 Test Item Value Reference Range Comments SODIUM (BEAKER) (test 137 meq/L 136-145 qqyi=078) POTASSIUM (BEAKER) (test 3.6 meq/L 3.5-5.1 saxx=091) CHLORIDE (BEAKER) (test 111 meq/L 98-107 eigc=901) CO2 (BEAKER) (test 18 meq/L 22-29 kdfx=742) BLOOD UREA NITROGEN 13 mg/dL 7-21 (BEAKER) (test ossz=257) CREATININE (BEAKER) (test 0.82 mg/dL 0.57-1.25 xfzc=845) GLUCOSE RANDOM (BEAKER) 102 mg/dL 70-105 (test rxml=401) CALCIUM (BEAKER) (test 8.6 mg/dL 8.4-10.2 lrdm=597) EGFR (BEAKER) (test 94 mL/min/1.73 sq m ESTIMATED GFR IS NOT gmtl=5390) ACCURATE CREATININE CLEARANCE IN PREDICTING GLOMERULAR FILTRATION RATE. ESTIMATED GFR IS NOT APPLICABLE FOR DIALYSIS PATIENTS. HEPATIC FUNCTION [id number] 04:57:00 Test Item Value Reference Range Comments TOTAL PROTEIN (BEAKER) (test xtpv=128) 6.1 gm/dL 6.0-8.3 ALBUMIN (BEAKER) (test jmuw=9405) 3.6 g/dL 3.5-5.0 BILIRUBIN TOTAL (BEAKER) (test aovl=534) 1.1 mg/dL 0.2-1.2 BILIRUBIN DIRECT (BEAKER) (test gnyu=886) 0.5 mg/dL 0.1-0.5 ALKALINE PHOSPHATASE (BEAKER) (test emuv=204) 42 U/L 40-150 AST (SGOT) (BEAKER) (test vjst=321) 29 U/L 5-34 ALT (SGPT) (BEAKER) (test okeo=912) 16 U/L 6-55 [id number] 04:56:00 Test Item Value Reference Range Comments PHOSPHORUS (BEAKER) (test mhcd=042) 1.7 mg/dL 2.3-4.7 CBC W/PLT COUNT & AUTO [id number] 03:59:00 Test Item Value Reference Range Comments WHITE BLOOD CELL COUNT (BEAKER) (test wquu=894) 9.4 K/ L 3.5-10.5 RED BLOOD CELL COUNT (BEAKER) (test conr=322) 4.29 M/ L 4.63-6.08 HEMOGLOBIN (BEAKER) (test ortt=727) 13.7 GM/DL 13.7-17.5 HEMATOCRIT (BEAKER) (test fbwn=467) 40.8 % 40.1-51.0 MEAN CORPUSCULAR VOLUME (BEAKER) (test rpcf=156) 95.1 fL 79.0-92.2 MEAN CORPUSCULAR HEMOGLOBIN (BEAKER) (test 31.9 pg 25.7-32.2 ntta=305) MEAN CORPUSCULAR HEMOGLOBIN CONC (BEAKER) (test 33.6 GM/DL 32.3-36.5 dzjj=773) RED CELL DISTRIBUTION WIDTH (BEAKER) (test 14.0 % 11.6-14.4 tbyv=300) PLATELET COUNT (BEAKER) (test xtwe=849) 208 K/CU MM 150-450 MEAN PLATELET VOLUME (BEAKER) (test pkzi=461) 12.2 fL 9.4-12.4 NUCLEATED RED BLOOD CELLS (BEAKER) (test 0 /100 WBC 0-0 kmou=903) NEUTROPHILS RELATIVE PERCENT (BEAKER) (test 78 % ulzg=724) LYMPHOCYTES RELATIVE PERCENT (BEAKER) (test 9 % ylfu=842) MONOCYTES RELATIVE PERCENT (BEAKER) (test 12 % mece=237) EOSINOPHILS RELATIVE PERCENT (BEAKER) (test 0 % jpbh=896) BASOPHILS RELATIVE PERCENT (BEAKER) (test 0 % oghf=259) NEUTROPHILS ABSOLUTE COUNT (BEAKER) (test 7.31 K/ L 1.78-5.38 lmzx=672) LYMPHOCYTES ABSOLUTE COUNT (BEAKER) (test 0.85 K/ L 1.32-3.57 ehdn=593) MONOCYTES ABSOLUTE COUNT (BEAKER) (test 1.14 K/ L 0.30-0.82 yfsh=679) EOSINOPHILS ABSOLUTE COUNT (BEAKER) (test 0.00 K/ L 0.04-0.54 juqc=156) BASOPHILS ABSOLUTE COUNT (BEAKER) (test 0.02 K/ L 0.01-0.08 jobi=134) IMMATURE GRANULOCYTES-RELATIVE PERCENT (BEAKER) 0 % 0-1 (test fepm=4760) POCT-GLUCOSE [id number] 01:18:00 Test Item Value Reference Range Comments POC-GLUCOSE METER (BEAKER) 103 mg/dL 70-[address] [facility] [address] [facility] (test dhby=8999) [facility] [id number] POCT-GLUCOSE [id number] 19:16:00 Test Item Value Reference Range Comments POC-GLUCOSE METER (BEAKER) 114 mg/dL 70-[address] [facility] [address] [facility] (test rquh=0411) [facility] [address] POCT-GLUCOSE [id number] 13:29:00 Test Item Value Reference Range Comments POC-GLUCOSE METER (BEAKER) 107 mg/dL 70-[address] [facility] [address] [facility] (test xcrz=0052) [facility] [address] SPUTUM CULTURE + GRAM [id number] 10:09:00 Test Item Value Reference Range Comments CULTURE (BEAKER) (test 1+ Normal respiratory carla szpg=3476) present GRAM STAIN RESULT (BEAKER) 1+ WBCs (test wirw=3622) GRAM STAIN RESULT (BEAKER) 2+ gram positive cocci in pairs (test jllh=05072) GRAM STAIN RESULT (BEAKER) 2+ gram positive cocci in chains (test ozuf=58442) GRAM STAIN RESULT (BEAKER) 0-5 epithelial cells (test nmvy=250264) CBC W/PLT COUNT & AUTO [id number] 06:44:00 Test Item Value Reference Range Comments WHITE BLOOD CELL COUNT (BEAKER) (test fksc=755) 10.0 K/ L 3.5-10.5 RED BLOOD CELL COUNT (BEAKER) (test uzpy=669) 4.09 M/ L 4.63-6.08 HEMOGLOBIN (BEAKER) (test esms=761) 13.1 GM/DL 13.7-17.5 HEMATOCRIT (BEAKER) (test tsle=314) 39.5 % 40.1-51.0 MEAN CORPUSCULAR VOLUME (BEAKER) (test kmcw=867) 96.6 fL 79.0-92.2 MEAN CORPUSCULAR HEMOGLOBIN (BEAKER) (test 32.0 pg 25.7-32.2 xwqk=794) MEAN CORPUSCULAR HEMOGLOBIN CONC (BEAKER) (test 33.2 GM/DL 32.3-36.5 yhep=691) RED CELL DISTRIBUTION WIDTH (BEAKER) (test 14.0 % 11.6-14.4 kcix=416) PLATELET COUNT (BEAKER) (test qzjw=477) 166 K/CU MM 150-450 MEAN PLATELET VOLUME (BEAKER) (test rqef=242) 10.7 fL 9.4-12.4 NUCLEATED RED BLOOD CELLS (BEAKER) (test 0 /100 WBC 0-0 xiib=412) NEUTROPHILS RELATIVE PERCENT (BEAKER) (test 85 % prww=830) LYMPHOCYTES RELATIVE PERCENT (BEAKER) (test 5 % caam=675) MONOCYTES RELATIVE PERCENT (BEAKER) (test 10 % uctb=445) EOSINOPHILS RELATIVE PERCENT (BEAKER) (test 0 % ypoa=147) BASOPHILS RELATIVE PERCENT (BEAKER) (test 0 % jdko=281) NEUTROPHILS ABSOLUTE COUNT (BEAKER) (test 8.48 K/ L 1.78-5.38 mwwa=708) LYMPHOCYTES ABSOLUTE COUNT (BEAKER) (test 0.52 K/ L 1.32-3.57 lifm=586) MONOCYTES ABSOLUTE COUNT (BEAKER) (test 0.97 K/ L 0.30-0.82 dbrz=165) EOSINOPHILS ABSOLUTE COUNT (BEAKER) (test 0.00 K/ L 0.04-0.54 iqxq=424) BASOPHILS ABSOLUTE COUNT (BEAKER) (test 0.02 K/ L 0.01-0.08 kiiz=424) IMMATURE GRANULOCYTES-RELATIVE PERCENT (BEAKER) 0 % 0-1 (test xsik=3042) POCT-GLUCOSE [id number] 06:25:00 Test Item Value Reference Range Comments POC-GLUCOSE METER (BEAKER) 115 mg/dL 70-110 TESTED AT [address] (test ramn=5374) [facility] [address] BLOOD GAS, [id number] 06:22:00 Test Item Value Reference Range Comments PH ARTERIAL (BEAKER) (test zwer=169) 7.49 7.35-7.45 PCO2 ARTERIAL (BEAKER) (test ipmm=261) 25 mmHg 35-45 PO2 ARTERIAL (BEAKER) (test ewjh=658) 68 mmHg 80-90 O2 SATURATION ARTERIAL (BEAKER) (test jxdz=869) 94.9 % 96.0-97.0 HCO3 ARTERIAL (BEAKER) (test heit=013) 18 mmol/L 21-29 BASE EXCESS ARTERIAL (BEAKER) (test ksjj=935) -3.3 mmol/L -2.0-3.0 PATIENT TEMPERATURE (BEAKER) (test iyqo=7178) 37.3 C FIO2 (BEAKER) (test mbxd=3459) 21.0 % [id number] 05:44:00 Test Item Value Reference Range Comments PHOSPHORUS (BEAKER) (test ssch=839) 1.7 mg/dL 2.3-4.7 [id number] 05:44:00 Test Item Value Reference Range Comments MAGNESIUM (BEAKER) (test pytc=577) 1.9 mg/dL 1.6-2.6 BASIC METABOLIC [id number] 05:44:00 Test Item Value Reference Range Comments SODIUM (BEAKER) (test 138 meq/L 136-145 ixyz=722) POTASSIUM (BEAKER) (test 3.6 meq/L 3.5-5.1 nuio=951) CHLORIDE (BEAKER) (test 107 meq/L 98-107 cfqg=180) CO2 (BEAKER) (test 22 meq/L 22-29 cfcc=596) BLOOD UREA NITROGEN 9 mg/dL 7-21 (BEAKER) (test rfbc=190) CREATININE (BEAKER) (test 0.89 mg/dL 0.57-1.25 zkwk=183) GLUCOSE RANDOM (BEAKER) 106 mg/dL 70-105 (test lwia=423) CALCIUM (BEAKER) (test 8.9 mg/dL 8.4-10.2 vtdo=902) EGFR (BEAKER) (test 85 mL/min/1.73 sq m ESTIMATED GFR IS NOT ogvb=8404) ACCURATE CREATININE CLEARANCE IN PREDICTING GLOMERULAR FILTRATION RATE. ESTIMATED GFR IS NOT APPLICABLE FOR DIALYSIS PATIENTS. POCT-GLUCOSE [id number] 00:49:00 Test Item Value Reference Range Comments POC-GLUCOSE METER (BEAKER) 124 mg/dL 70-110 TESTED AT [address] (test weqp=2996) [place] [id number] POCT-GLUCOSE [id number] 18:34:00 Test Item Value Reference Range Comments POC-GLUCOSE METER (BEAKER) 144 mg/dL 70-110 TESTED AT [address] (test mztg=1337) [place] [id number] POCT-GLUCOSE [id number] 12:39:00 Test Item Value Reference Range Comments POC-GLUCOSE METER (BEAKER) 124 mg/dL 70-110 TESTED AT [address] (test bznt=6904) [place] [id number] BLOOD GAS, [id number] 11:19:00 Test Item Value Reference Range Comments PH ARTERIAL (BEAKER) (test unmg=163) 7.45 7.35-7.45 PCO2 ARTERIAL (BEAKER) (test gxjn=994) 32 mmHg 35-45 PO2 ARTERIAL (BEAKER) (test dnlm=486) 98 mmHg 80-90 O2 SATURATION ARTERIAL (BEAKER) (test fprc=320) 97.6 % 96.0-97.0 HCO3 ARTERIAL (BEAKER) (test cqvy=292) 21 mmol/L 21-29 BASE EXCESS ARTERIAL (BEAKER) (test lobf=327) -1.5 mmol/L -2.0-3.0 PATIENT TEMPERATURE (BEAKER) (test bagx=2133) 37.5 C FIO2 (BEAKER) (test wzuc=4272) 32.0 % CT BRAIN WITHOUT IV CONTRAST - [id number] 09:26:00Reason for exam:-> ICH with IVHFINAL REPORT [...] collection. IMPRESSION: Improved intracranial appearance. Signed: Salas Velez Verified Date/Time: 02/01/2018 09:26:57 Reading Location: [facility] C013V Neuro Reading Room HEMOGLOBIN [id number] 08:20:00 Test Item Value Reference Range Comments HEMOGLOBIN A1C (BEAKER) (test sdza=537) 6.1 % 4.3-6.1 RAD, CHEST, 1 VIEW, NON [id number] 07:38:00Reason for exam:-> intubationShould this be performed [...] Verified Date/Time : 02/01/2018 07:38:36 Reading Location: [address] Neuro Reading Room POCT- GLUCOSE [id number] 06:57:00 Test Item Value Reference Range Comments POC-GLUCOSE METER (BEAKER) 123 mg/dL 70-110 TESTED AT [address] (test kpvg=8355) [facility] [address] BLOOD GAS, [id number] 04:33:00 Test Item Value Reference Range Comments PH ARTERIAL (BEAKER) (test fezd=718) 7.39 7.35-7.45 PCO2 ARTERIAL (BEAKER) (test muzd=444) 39 mmHg 35-45 PO2 ARTERIAL (BEAKER) (test shyl=918) 262 mmHg 80-90 O2 SATURATION ARTERIAL (BEAKER) (test gpfb=613) 99.6 % 96.0-97.0 HCO3 ARTERIAL (BEAKER) (test jtma=155) 23 mmol/L 21-29 BASE EXCESS ARTERIAL (BEAKER) (test uahk=239) -1.4 mmol/L -2.0-3.0 PATIENT TEMPERATURE (BEAKER) (test royn=7455) 37.1 C FIO2 (BEAKER) (test fryj=2014) 60.0 % [id number] 04:18:00 Test Item Value Reference Range Comments PHOSPHORUS (BEAKER) (test dxms=314) 3.4 mg/dL 2.3-4.7 [id number] 04:18:00 Test Item Value Reference Range Comments MAGNESIUM (BEAKER) (test kgrb=289) 1.2 mg/dL 1.6-2.6 BASIC METABOLIC [id number] 04:18:00 Test Item Value Reference Range Comments SODIUM (BEAKER) (test 138 meq/L 136-145 wwgf=373) POTASSIUM (BEAKER) (test 4.1 meq/L 3.5-5.1 vmjb=338) CHLORIDE (BEAKER) (test 109 meq/L 98-107 uocp=056) CO2 (BEAKER) (test 22 meq/L 22-29 uezw=039) BLOOD UREA NITROGEN 10 mg/dL 7-21 (BEAKER) (test osvw=193) CREATININE (BEAKER) (test 0.81 mg/dL 0.57-1.25 zsrl=659) GLUCOSE RANDOM (BEAKER) 124 mg/dL 70-105 (test zhkz=683) CALCIUM (BEAKER) (test 8.4 mg/dL 8.4-10.2 acnz=595) EGFR (BEAKER) (test 95 mL/min/1.73 sq m ESTIMATED GFR IS NOT xjev=6944) ACCURATE CREATININE CLEARANCE IN PREDICTING GLOMERULAR FILTRATION RATE. ESTIMATED GFR IS NOT APPLICABLE FOR DIALYSIS PATIENTS. CBC W/PLT COUNT & AUTO [id number] 04:06:00 Test Item Value Reference Range Comments WHITE BLOOD CELL COUNT (BEAKER) (test puhf=670) 7.6 K/ L 3.5-10.5 RED BLOOD CELL COUNT (BEAKER) (test rhqk=529) 4.05 M/ L 4.63-6.08 HEMOGLOBIN (BEAKER) (test zxlg=802) 13.0 GM/DL 13.7-17.5 HEMATOCRIT (BEAKER) (test wdfy=341) 38.6 % 40.1-51.0 MEAN CORPUSCULAR VOLUME (BEAKER) (test exae=713) 95.3 fL 79.0-92.2 MEAN CORPUSCULAR HEMOGLOBIN (BEAKER) (test 32.1 pg 25.7-32.2 kufj=902) MEAN CORPUSCULAR HEMOGLOBIN CONC (BEAKER) (test 33.7 GM/DL 32.3-36.5 ggab=065) RED CELL DISTRIBUTION WIDTH (BEAKER) (test 13.6 % 11.6-14.4 iuxj=274) PLATELET COUNT (BEAKER) (test biov=015) 186 K/CU MM 150-450 MEAN PLATELET VOLUME (BEAKER) (test jpxl=109) 10.2 fL 9.4-12.4 NUCLEATED RED BLOOD CELLS (BEAKER) (test 0 /100 WBC 0-0 gwob=557) NEUTROPHILS RELATIVE PERCENT (BEAKER) (test 80 % etxz=205) LYMPHOCYTES RELATIVE PERCENT (BEAKER) (test 10 % zozh=261) MONOCYTES RELATIVE PERCENT (BEAKER) (test 10 % zkjx=607) EOSINOPHILS RELATIVE PERCENT (BEAKER) (test 0 % mrat=357) BASOPHILS RELATIVE PERCENT (BEAKER) (test 0 % ibcd=528) NEUTROPHILS ABSOLUTE COUNT (BEAKER) (test 6.04 K/ L 1.78-5.38 krmv=020) LYMPHOCYTES ABSOLUTE COUNT (BEAKER) (test 0.72 K/ L 1.32-3.57 mjno=128) MONOCYTES ABSOLUTE COUNT (BEAKER) (test 0.76 K/ L 0.30-0.82 trij=382) EOSINOPHILS ABSOLUTE COUNT (BEAKER) (test 0.00 K/ L 0.04-0.54 fzvj=918) BASOPHILS ABSOLUTE COUNT (BEAKER) (test 0.02 K/ L 0.01-0.08 nswg=714) IMMATURE GRANULOCYTES-RELATIVE PERCENT (BEAKER) 0 % 0-1 (test grqy=8237) [id number] 02:07:00 Test Item Value Reference Range Comments RPR SCREEN (BEAKER) (test krzb=073) Nonreactive Nonreactive HEPATIC FUNCTION [id number] 22:17:00 Test Item Value Reference Range Comments TOTAL PROTEIN (BEAKER) (test chqc=072) 6.4 gm/dL 6.0-8.3 ALBUMIN (BEAKER) (test nkwz=6294) 4.2 g/dL 3.5-5.0 BILIRUBIN TOTAL (BEAKER) (test chkk=045) 0.8 mg/dL 0.2-1.2 BILIRUBIN DIRECT (BEAKER) (test ylnt=392) 0.4 mg/dL 0.1-0.5 ALKALINE PHOSPHATASE (BEAKER) (test cldr=359) 52 U/L 40-150 AST (SGOT) (BEAKER) (test xdmw=218) 27 U/L 5-34 ALT (SGPT) (ROMA) (test jvnu=727) 19 U/L 6-55 CT, CTANGIO [id number] 21:00:00FINAL REPORT CTA carotids and brain 01/31/2018 [...] Velez Verified Date/Time: 01/31/2018 21:00:54 Reading Location: [facility] Radiology Reading Room CT, CAROTID, [id number] 21:00:00FINAL REPORT CTA carotids and brain 01/31/2018 [...] MDReport Verified Date/Time: 01/31/2018 21:00:54 Reading Location: [facility] Radiology Reading Room TSH/FREE T4 IF [id number] 20:05:00 Test Item Value Reference Range Comments THYROID STIMULATING HORMONE (BEAKER) (test 2.07 uIU/mL 0.35-4.94 svzu=001) VITAMIN B12 AND [id number] 20:05:00 Test Item Value Reference Range Comments VITAMIN B12 (BEAKER) (test lfwr=789) 340 pg/mL 213-816 FOLATE (BEAKER) (test yvsu=176) 11.0 ng/mL >=7.0 PROTHROMBIN [id number] 19:56:00 Test Item Value Reference Range Comments PROTIME (BEAKER) (test dbfn=992) 14.1 seconds 11.7-14.7 INR (BEAKER) (test phih=913) 1.1 <=5.9 RECOMMENDED COUMADIN/WARFARIN INR THERAPY RANGESSTANDARD DOSE: 2.0 - 3.0 Includes: PROPHYLAXIS forvenous thrombosis, systemic embolization; TREATMENT for venous thrombosis and/or pulmonary embolus.HIGH RISK: Target INR is 2.5-3.5 for patients with mechanical heart valves.[id number] 19:56:00 Test Item Value Reference Range Comments PARTIAL THROMBOPLASTIN TIME (BEAKER) (test 31.5 seconds 22.5-36.0 ddgl=210) CBC W/PLT COUNT & AUTO [id number] 19:45:00 Test Item Value Reference Range Comments WHITE BLOOD CELL COUNT (BEAKER) (test focp=088) 10.6 K/ L 3.5-10.5 RED BLOOD CELL COUNT (BEAKER) (test ygnv=589) 5.29 M/ L 4.63-6.08 HEMOGLOBIN (BEAKER) (test lvuk=082) 17.1 GM/DL 13.7-17.5 HEMATOCRIT (BEAKER) (test ctsk=105) 50.0 % 40.1-51.0 MEAN CORPUSCULAR VOLUME (BEAKER) (test bmqp=445) 94.5 fL 79.0-92.2 MEAN CORPUSCULAR HEMOGLOBIN (BEAKER) (test 32.3 pg 25.7-32.2 vkoh=287) MEAN CORPUSCULAR HEMOGLOBIN CONC (BEAKER) (test 34.2 GM/DL 32.3-36.5 zeya=848) RED CELL DISTRIBUTION WIDTH (BEAKER) (test 13.3 % 11.6-14.4 ckpo=378) PLATELET COUNT (BEAKER) (test njgn=387) 83 K/CU MM 150-450 MEAN PLATELET VOLUME (BEAKER) (test idov=887) 11.9 fL 9.4-12.4 NUCLEATED RED BLOOD CELLS (BEAKER) (test 0 /100 WBC 0-0 ilto=780) NEUTROPHILS RELATIVE PERCENT (BEAKER) (test 79 % ardr=999) LYMPHOCYTES RELATIVE PERCENT (BEAKER) (test 13 % ygbw=894) MONOCYTES RELATIVE PERCENT (BEAKER) (test 8 % gnyj=843) EOSINOPHILS RELATIVE PERCENT (BEAKER) (test 0 % yfnx=780) BASOPHILS RELATIVE PERCENT (BEAKER) (test 0 % odpl=534) NEUTROPHILS ABSOLUTE COUNT (BEAKER) (test 8.32 K/ L 1.78-5.38 usnx=532) LYMPHOCYTES ABSOLUTE COUNT (BEAKER) (test 1.38 K/ L 1.32-3.57 qeyj=403) MONOCYTES ABSOLUTE COUNT (BEAKER) (test kspa=639) 0.83 K/ L 0.30-0.82 EOSINOPHILS ABSOLUTE COUNT (BEAKER) (test 0.00 K/ L 0.04-0.54 smer=815) BASOPHILS ABSOLUTE COUNT (BEAKER) (test sdzs=925) 0.04 K/ L 0.01-0.08 IMMATURE GRANULOCYTES-RELATIVE PERCENT (BEAKER) 0 % 0-1 (test tion=5020) COMPREHENSIVE METABOLIC [id number] 19:30:00 Test Item Value Reference Range Comments TOTAL PROTEIN (BEAKER) 6.6 gm/dL 6.0-8.3 Specimen slightly (test iydi=243) hemolyzed ALBUMIN (BEAKER) (test 4.3 g/dL 3.5-5.0 Specimen slightly amxo=5514) hemolyzed ALKALINE PHOSPHATASE 58 U/L 40-150 (BEAKER) (test kxrm=553) BILIRUBIN TOTAL (BEAKER) 1.1 mg/dL 0.2-1.2 Specimen slightly (test pupt=373) hemolyzed SODIUM (BEAKER) (test 138 meq/L 136-145 ttes=124) POTASSIUM (BEAKER) (test 3.3 meq/L 3.5-5.1 Specimen slightly wryv=244) hemolyzed CHLORIDE (BEAKER) (test 106 meq/L 98-107 fler=498) CO2 (BEAKER) (test 18 meq/L 22-29 jgzp=335) BLOOD UREA NITROGEN 12 mg/dL 7-21 (BEAKER) (test kbev=796) CREATININE (BEAKER) (test 0.85 mg/dL 0.57-1.25 Specimen slightly jgyj=330) hemolyzed GLUCOSE RANDOM (BEAKER) 131 mg/dL 70-105 (test vxkr=351) CALCIUM (BEAKER) (test 9.1 mg/dL 8.4-10.2 ncdu=340) AST (SGOT) (BEAKER) (test 35 U/L 5-34 Specimen slightly smcf=015) hemolyzed ALT (SGPT) (BEAKER) (test 21 U/L 6-55 Specimen slightly gwgp=247) hemolyzed EGFR (BEAKER) (test 90 mL/min/1.73 sq m ESTIMATED GFR IS NOT dlpe=9224) ACCURATE CREATININE CLEARANCE IN PREDICTING GLOMERULAR FILTRATION RATE. ESTIMATED GFR IS NOT APPLICABLE FOR DIALYSIS PATIENTS. [id number] 19:30:00 Test Item Value Reference Range Comments MAGNESIUM (BEAKER) (test 1.6 mg/dL 1.6-2.6 Specimen slightly hemolyzed mvhh=699) LIPID [id number] 19:30:00 Test Item Value Reference Range Comments TRIGLYCERIDES (BEAKER) (test 85 mg/dL Specimen slightly hemolyzed llxj=656) CHOLESTEROL (BEAKER) (test 174 mg/dL Specimen slightly hemolyzed rtxy=236) HDL CHOLESTEROL (BEAKER) (test 56 mg/dL ljyv=311) LDL CHOLESTEROL CALCULATED 101 mg/dL (BEAKER) (test duxc=286) Triglyceride Reference Range: Low Risk <150 Borderline 150- 199 High Risk 200-499 Very High Risk >=500Cholesterol Reference Range: Low Risk <200 Borderline 200-239 High Risk > 240HDL Cholesterol Reference Range: Low Risk >=60 High Risk <40LDL Cholesterol Reference Range: Optimal <100 Near Optimal 100-129 Borderline 130-159 High 160-189 Very High >=190BLOOD GAS, [id number] 19:28:00 Test Item Value Reference Range Comments PH ARTERIAL (BEAKER) (test quph=837) 7.42 7.35-7.45 PCO2 ARTERIAL (BEAKER) (test mamp=160) 33 mmHg 35-45 PO2 ARTERIAL (BEAKER) (test thgt=163) 183 mmHg 80-90 O2 SATURATION ARTERIAL (BEAKER) (test lvko=527) 99.3 % 96.0-97.0 HCO3 ARTERIAL (BEAKER) (test ykgd=261) 21 mmol/L 21-29 BASE EXCESS ARTERIAL (BEAKER) (test lhza=142) -2.4 mmol/L -2.0-3.0 PATIENT TEMPERATURE (BEAKER) (test smzr=3865) 37.0 C RAD, CHEST, 1 VIEW, NON [id number] 17:49:00Post-intubationReason for exam:-& gt;post intubationShould this be [...] acute osseous abnormality is identified. Signed: Riley Xavier MDReport Verified Date/Time: 01/31/2018 17:49:49 Reading Location: [facility] C013W Consult Reading Room
[2019-04-01 23:25] LABS: Absolute Monocytes 0.7 K/uL (0.1-1.3); Absolute Neutrophil 4.6 K/uL (1.8-8.0); Basophils % 0.7 % (0-1.3); Eosinophils % 1.9 % (0-4.4); Hematocrit 49.2 % (39.6-49.0); Lymphocytes % 26.4 % (15.3-44.8); MPV 8.9 fL (7.6-11.3)
[2019-04-01] MEDS ORDERED: ASPIRIN EC 81 MG TAB PO ONE ×2 (23:29→23:43)
[2019-04-01 23:30] LABS: Protime INR 1.06
[2019-04-01] MEDS ORDERED: ACETAMINOPHEN 500 MG TAB ONE (23:30)
[2019-04-01 23:49] LABS: ALT/SGPT 26 U/L (12-78); AST/SGOT 21 U/L (15-37); Alkaline Phosphatase 116 U/L (45-117); BUN Blood Urea Nitrogen 12 mg/dL (7-18); Bicarbonate 25 mmol/L (21-32); Bilirubin Direct 0.1 mg/dL (0-0.2); Bilirubin Total 0.5 mg/dL (0.2-1.0); Glucose Level 97 mg/dL (74-106); Magnesium 1.8 mg/dL (1.8-2.4); NT PRO-BNP 39 pg/mL (<125); Potassium 4.2 mmol/L (3.5-5.1); Protein, Total 6.8 g/dL (6.4-8.2); Sodium Level 141 mmol/L (136-145); Troponin (Emerg Dept Use Only) < 0.02 ng/mL (0.0-0.045)
--- NOTE | 2019-04-02 01:53 | EDPHYS ---
Physician Documentation [facility] Name: Edmund Caballero Age: 68 yrs Sex: Male : 1950 Arrival Date: 04/01/2019 Time: 20:54 Bed 23 Private MD: Shelton Trinh T ED Physician Jean-Claude Branham HPI: 04/02 08:29 This 68 yrs old Male presents to ER via Ambulatory with complaints of wa Numbness Of Arm - radiating to shoulder. 08:29 The patient or guardian complains of pain, that is acute. The complaints affect the wa left arm. Context: The problem was sustained at home, resulted from unknown cause, c/o achy LUE pain. denies known injury. denies dizziness, chest pain or SOB. Onset: The symptoms/episode began/occurred yesterday. Treatment prior to arrival includes: no previous treatment. Modifying factors: The symptoms are alleviated by nothing. the symptoms are aggravated by nothing. Associated signs and symptoms: Pertinent negatives: deformity, erythema, swelling, weakness, SOB or chest pain. Severity of symptoms: At their worst the symptoms were moderate, in the emergency department the symptoms are unchanged. The patient has experienced similar episodes in the past, several times, in the R arm. The patient has not recently seen a physician. Historical: - Allergies: 04/01 21:30 NKA; ls4 - PMHx: 21:30 CVA; Cognitive, behavioral deficits; Hypertension; ls4 - Immunization history:: Adult Immunizations up to date. - Social history:: Smoking status: Patient uses tobacco products, cigars. - Ebola Screening: : No symptoms or risks identified at this time. - Family history:: not pertinent. - Hospitalizations: : No recent hospitalization is reported. ROS: 04/02 08:31 Constitutional: Negative for fever, chills, and weight loss, Eyes: Negative for injury, wa pain, redness, and discharge, ENT: Negative for injury, pain, and discharge, Neck: Negative for injury, pain, and swelling, Cardiovascular: Negative for chest pain, palpitations, and edema, Respiratory: Negative for shortness of breath, cough, wheezing, and pleuritic chest pain, Abdomen/GI: Negative for abdominal pain, nausea, vomiting, diarrhea, and constipation, Back: Negative for injury and pain, : Negative for injury, bleeding, discharge, and swelling, Skin: Negative for injury, rash, and discoloration, Neuro: Negative for headache, weakness, numbness, tingling, and seizure. MS/extremity: Positive for pain, of the left arm, Negative for deformity, ecchymosis. All other systems are negative. Exam: 08:31 Constitutional: This is a well developed, well nourished patient who is awake, alert, wa and in no acute distress. Head/Face: Normocephalic, atraumatic. Eyes: Pupils equal round and reactive to light, extra-ocular motions intact. Lids and lashes normal. Conjunctiva and sclera are non-icteric and not injected. Cornea within normal limits. Periorbital areas with no swelling, redness, or edema. ENT: Nares patent. No nasal discharge, no septal abnormalities noted. Tympanic membranes are normal and external auditory canals are clear. Oropharynx with no redness, swelling, or masses, exudates, or evidence of obstruction, uvula midline. Mucous membranes moist. Neck: Trachea midline, no thyromegaly or masses palpated, and no cervical lymphadenopathy. Supple, full range of motion without nuchal rigidity, or vertebral point tenderness. No Meningismus. Chest/axilla: Normal chest wall appearance and motion. Nontender with no deformity. No lesions are appreciated. Cardiovascular: Regular rate and rhythm with a normal S1 and S2. No gallops, murmurs, or rubs. Normal PMI, no JVD. No pulse deficits. Respiratory: Lungs have equal breath sounds bilaterally, clear to auscultation and percussion. No rales, rhonchi or wheezes noted. No increased work of breathing, no retractions or nasal flaring. Abdomen/GI: Soft, non-tender, with normal bowel sounds. No distension or tympany. No guarding or rebound. No evidence of tenderness throughout. Back: No spinal tenderness. No costovertebral tenderness. Full range of motion. Skin: Warm, dry with normal turgor. Normal color with no rashes, no lesions, and no evidence of cellulitis. Neuro: Awake and alert, GCS 15, oriented to person, place, time, and situation. Cranial nerves II-XII grossly intact. Motor strength 5/5 in all extremities. Sensory grossly intact. Cerebellar exam normal. Normal gait. Psych: Awake, alert, with orientation to person, place and time. Behavior, mood, and affect are within normal limits. 08:31 Musculoskeletal/extremity: Extremities: all appear grossly normal, with no appreciated pain with palpation, non-tender. no swelling. no redness.. Vital Signs: 04/01 20:58 Pulse 84; Resp 16; Temp 98.3; Pulse Ox 100% on R/A; Weight 70.31 kg; Height 5 ft. 9 in. la1 (175.26 cm); Pain 6/10; 20:59 BP 160 / 90; la1 22:13 BP 139 / 85; Pulse 75; Resp 16; Pulse Ox 99% on R/A; Pain 6/10; ls4 23:00 BP 164 / 86; Pulse 70; Resp 16; Pulse Ox 98% on R/A; ls4 23:56 BP 126 / 83; Pulse 64; Resp 16; Pulse Ox 98% on R/A; ls4 04/02 00:30 BP 138 / 74; Pulse 65; Resp 16; Pulse Ox 96% on R/A; ls4 01:13 BP 136 / 70; Pulse 66; Resp 16; Pulse Ox 96% on R/A; ls4 04/01 20:58 Body Mass Index 22.89 (70.31 kg, 175.26 cm) la1 NIH Stroke Scale Scores: 04/01 21:27 NIHSS Score: 0 ls4 MDM: 21:[address] 04/02 08:32 Differential diagnosis: nml clinical exam. angina equivalent? answers negative to all ct assoc factors. will eval and reassess. Data reviewed: vital signs, nurses notes. Test interpretation: by ED physician or midlevel provider: EKG: sinus. wnl. nml CXR. nml labs. . ED course: will have f/u with PMD and cardiology for further eval. ED work up essentially negative. 04/01 22:46 Order name: Basic Metabolic Panel ct 04/01 22:46 Order name: CBC with Diff ct 04/01 22:46 Order name: LFT's; Complete Time: 01:48 ct 04/01 22:46 Order name: Magnesium; Complete Time: 01:48 ct 04/01 22:46 Order name: NT PRO-BNP; Complete Time: 01:48 ct 04/01 22:46 Order name: PT-INR; Complete Time: 01:48 ct 04/01 22:46 Order name: Troponin (emerg Dept Use Only); Complete Time: 01:48 ct 04/01 22:46 Order name: XRAY Chest (1 view) ct 04/01 22:46 Order name: EKG; Complete Time: 22:48 ct 04/01 22:46 Order name: Cardiac monitoring; Complete Time: 23:32 ct 04/01 22:48 Order name: Basic Metabolic Panel; Complete Time: 01:48 EDMS 04/01 22:48 Order name: CBC with Automated Diff; Complete Time: 01:48 EDMS 04/01 22:46 Order name: EKG - Nurse/Tech; Complete Time: 23:32 ct 04/01 22:46 Order name: IV Saline Lock; Complete Time: 23:14 ct 04/01 22:46 Order name: Labs collected and sent; Complete Time: 23:14 ct 04/01 22:46 Order name: O2 Per Protocol; Complete Time: 23:14 ct 04/01 22:46 Order name: O2 Sat Monitoring; Complete Time: 23:14 ct Administered Medications: 04/01 23:20 Drug: Tylenol 1000 mg Route: PO; 4 04/02 02:09 Follow up: Response: No adverse reaction [facility] 04/01 23:32 Drug: Aspirin Chewable Tablet 324 mg Route: PO; 4 04/02 02:10 Follow up: Response: No adverse reaction 1 Disposition: 04/02/19 01:51 Discharged to Home. Impression: Acute Left Upper Extremity Pain . - Condition is Stable. - Medication Reconciliation Form, Thank You Letter, Antibiotic Education, Prescription Opioid Use form. - Follow up: Kasi Rogers MD; When: 2 - 3 days; Reason: Recheck today's complaints. - Problem is new. - Symptoms have improved. - Notes: return immediately for any worsening concerns such as chest pain adn or shortness of breath. see the jerker as I need you to get a heart evaluation NIH Stroke Scale - NIH Stroke Score Date: 04/01/2019 Time: 21:27 Total Score = 0 1a. Level of Consciousness (LOC) - 0(Alert) 1b. Level of Consciousness (LOC) (Year \T\ Age) - 0(Both) 1c. LOC Commands (Open \T\ Closes Eyes/Packer Inspector) - 0(Both) 2. Best Gaze (Lateral Gaze Paresis) - 0(Normal) 3. Visual Field Loss - 0(No visual loss) 4. Facial Palsy - 0(Normal) 5a. Left Arm: Motor (10-second hold) - 0(No drift) 5b. Right Arm: Motor (10-second hold) - 0(No drift) 6a. Left Leg: Motor (5-second hold - always test supine) - 0(No drift) 6b. Right Leg: Motor (5-second hold - always test supine) - 0(No drift) 7. Limb Ataxia (finger/nose \T\ heel/toure - test with eyes open) - 0(Absent) 8. Sensory Loss (pinprick arms/legs/face) - 0(Normal) 9. Best Language: Aphasia (description/naming/reading) - 0(No aphasia) 10. Dysarthria (speech clarity - read or repeat words) - 0(Normal) 11. Extinction and Inattention (visual/tactile/auditory/spatial/personal) - 0(No abnormality) Initials: ls4 Signatures: Dispatcher [employer] EDMS Nacho Simental RN RN la1 Jean-Claude Branham MD MD wa Basinger, Emily, RN RN eb Leticia Ryan RN RN ls4 Corrections: (The following items were deleted from the chart) 04/01 21:30 20:58 Allergies: NKA; [place] [id number] 21:30 20:58 PMHx: CVA; Cognitive, behavioral deficits; [place] [id number] 21:30 20:58 PMHx: Hypertension; [place] [id number] 04/02 02:10 01:51 04/02/2019 01:51 Discharged to Home. Impression: Acute Left Upper eb1 Extremity Pain . Condition is Stable. Forms are Medication Reconciliation Form, Thank You Letter, Antibiotic Education, Prescription Opioid Use. Follow up: Kasi Rogers; When: 2 - 3 days; Reason: Recheck today's complaints. Problem is new. Symptoms have improved. wa
--- NOTE | 2019-04-02 01:53 | ER ---
Nurse's Notes [facility] Name: Edmund Caballero Age: 68 yrs Sex: Male : 1950 Arrival Date: 04/01/2019 Time: 20:54 Bed 23 Private MD: Shelton Trinh T Diagnosis: Acute Left Upper Extremity Pain Presentation: 04/01 20:56 Presenting complaint: Patient states: At about 1300 today I began to have pain that la1 radiates all the way from my left hand to my chest area. Transition of care: patient was not received from another setting of care. Onset of symptoms was April 01, 2019. Risk Assessment: Do you want to hurt yourself or someone else? Patient reports no desire to harm self or others. Initial Sepsis Screen: Does the patient meet any 2 criteria? No. Patient's initial sepsis screen is negative. Does the patient have a suspected source of infection? No. Patient's initial sepsis screen is negative. Care prior to arrival: None. 20:56 Method Of Arrival: Ambulatory la1 20:56 Acuity: KIRK 3 la1 Triage Assessment: 22:11 General: Appears in no apparent distress. comfortable, Behavior is calm, cooperative. ls4 Neuro: No deficits noted. Cardiovascular: No deficits noted. Respiratory: No deficits noted. Musculoskeletal: Circulation, motion, and sensation intact. Capillary refill < 3 seconds, Range of motion: intact in all extremities. Historical: - Allergies: 21:30 NKA; ls4 - PMHx: 21:30 CVA; Cognitive, behavioral deficits; Hypertension; ls4 - Immunization history:: Adult Immunizations up to date. - Social history:: Smoking status: Patient uses tobacco products, cigars. - Ebola Screening: : No symptoms or risks identified at this time. - Family history:: not pertinent. - Hospitalizations: : No recent hospitalization is reported. Screenin:27 Abuse screen: Denies threats or abuse. Nutritional screening: No deficits noted. ls4 Tuberculosis screening: No symptoms or risk factors identified. Fall Risk None identified. Assessment: 21:27 General: Appears in no apparent distress. comfortable, Behavior is calm, cooperative. ls4 Pain: Complains of pain in left arm Pain currently is 6 out of 10 on a pain scale. Quality of pain is described as aching. Neuro: No deficits noted. Respiratory: Airway is patent Respiratory effort is even, unlabored, Respiratory pattern is regular, Breath sounds are clear bilaterally. Derm: Skin is pink, warm \T\ dry. Musculoskeletal: No deficits noted. Circulation, motion, and sensation intact. Capillary refill < 3 seconds, Range of motion: intact in all extremities, Swelling absent. 23:57 Reassessment: Patient appears in no apparent distress at this time. Patient and/or ls4 family updated on plan of care and expected duration. Pain level reassessed. Patient is alert, oriented x 3, equal unlabored respirations, skin warm/dry/pink. 04/02 00:30 Reassessment: Patient appears in no apparent distress at this time. Patient and/or ls4 family updated on plan of care and expected duration. Pain level reassessed. Patient is alert, oriented x 3, equal unlabored respirations, skin warm/dry/pink. Vital Signs: 04/01 20:58 Pulse 84; Resp 16; Temp 98.3; Pulse Ox 100% on R/A; Weight 70.31 kg; Height 5 ft. 9 in. la1 (175.26 cm); Pain 6/10; 20:59 BP 160 / 90; la1 22:13 BP 139 / 85; Pulse 75; Resp 16; Pulse Ox 99% on R/A; Pain 6/10; ls4 23:00 BP 164 / 86; Pulse 70; Resp 16; Pulse Ox 98% on R/A; ls4 23:56 BP 126 / 83; Pulse 64; Resp 16; Pulse Ox 98% on R/A; ls4 04/02 00:30 BP 138 / 74; Pulse 65; Resp 16; Pulse Ox 96% on R/A; ls4 01:13 BP 136 / 70; Pulse 66; Resp 16; Pulse Ox 96% on R/A; ls4 04/01 20:58 Body Mass Index 22.89 (70.31 kg, 175.26 cm) la1 NIH Stroke Scale Scores: 04/01 21:27 NIHSS Score: 0 ls4 ED Course: 20:54 Patient arrived in ED. am2 20:55 Shelton Trinh MD is Private Physician. am2 20:57 Triage completed. la1 20:58 Arm band placed on left wrist. la1 21:07 No provider procedures requiring assistance completed. EKG done, by ED staff. ls4 21:25 Leticia Ryan, RN is Primary Nurse. ls4 21:25 Patient has correct armband on for positive identification. Placed in gown. Bed in low ls4 position. Call light in reach. Side rails up X 1. Warm blanket given. Verbal reassurance given. 21:52 Jean-Claude Branham MD is Attending Physician. wa 23:13 Missed attempt(s): 22 gauge in right antecubital area. lt1 23:13 Initial lab(s) drawn, by me, sent to lab. Inserted saline lock: 20 gauge in left lt1 antecubital area, using aseptic technique. 23:27 X-ray completed. Portable x-ray completed in exam room. Patient tolerated procedure kw well. 23:28 XRAY Chest (1 view) In Process Unspecified. EDMS 23:32 Basic Metabolic Panel Sent. ls4 23:32 CBC with Diff Sent. [facility] 04/02 01:37 Report given to Sheryl GUILLAUME. ls4 01:50 Kasi Rogers MD is Referral Physician. wa 02:08 IV discontinued, intact, bleeding controlled, No redness/swelling at site. Pressure eb1 dressing applied. Administered Medications: 04/01 23:20 Drug: Tylenol 1000 mg Route: PO; [facility] 04/02 02:09 Follow up: Response: No adverse reaction eb1 04/01 23:32 Drug: Aspirin Chewable Tablet 324 mg Route: PO; [facility] 04/02 02:10 Follow up: Response: No adverse reaction eb1 Outcome: 01:51 Discharge ordered by . wa 02:07 Discharged to home with family. eb1 02:07 Condition: good 02:07 Discharge instructions given to patient, Instructed on discharge instructions, follow up and referral plans. Demonstrated understanding of instructions, follow-up care. 02:10 Patient left the ED. eb1 NIH Stroke Scale - NIH Stroke Score Date: 04/01/2019 Time: 21:27 Total Score = 0 1a. Level of Consciousness (LOC) - 0(Alert) 1b. Level of Consciousness (LOC) (Year \T\ Age) - 0(Both) 1c. LOC Commands (Open \T\ Closes Eyes/Nursing Secretary) - 0(Both) 2. Best Gaze (Lateral Gaze Paresis) - 0(Normal) 3. Visual Field Loss - 0(No visual loss) 4. Facial Palsy - 0(Normal) 5a. Left Arm: Motor (10-second hold) - 0(No drift) 5b. Right Arm: Motor (10-second hold) - 0(No drift) 6a. Left Leg: Motor (5-second hold - always test supine) - 0(No drift) 6b. Right Leg: Motor (5-second hold - always test supine) - 0(No drift) 7. Limb Ataxia (finger/nose \T\ heel/toure - test with eyes open) - 0(Absent) 8. Sensory Loss (pinprick arms/legs/face) - 0(Normal) 9. Best Language: Aphasia (description/naming/reading) - 0(No aphasia) 10. Dysarthria (speech clarity - read or repeat words) - 0(Normal) 11. Extinction and Inattention (visual/tactile/auditory/spatial/personal) - 0(No abnormality) Initials: 4 Signatures: Dispatcher [employer] EDMS Nicole Javed Lee RN RN la1 Kassidy Garcia am2 Jean-Claude Branham MD MD wa Basinger, Emily, RN RN eb1 Leticia Ryan RN RN 4 Neeru Orr lt1 Corrections: (The following items were deleted from the chart) 04/01 21:30 20:58 Allergies: NKA; [place] [id number] 21:30 20:58 PMHx: CVA; Cognitive, behavioral deficits; [place] [id number] 21:30 20:58 PMHx: Hypertension; [place] [id number] 04/02 01:37 00:30 BP 108 / 64; Pulse 80bpm; Resp 16bpm; Pulse Ox 96% RA; [place] [id number] 01:37 01:13 BP 112 / 71; Pulse 87bpm; Resp 16bpm; Pulse Ox 96% RA; [place] [id number]
--- NOTE | 2019-04-02 07:50 | RAD REPORT ---
EXAM DESCRIPTION: Gavi Single View04/01/2019 11:28 pm CLINICAL HISTORY: Chest pain COMPARISON: February 2018 FINDINGS: The lungs appear clear of acute infiltrate. The heart is normal size IMPRESSION: No acute abnormalities displayed
--- NOTE | 2019-04-02 12:46 | EKG ---
Test Date: 2019-04-01 Test Time: 21:07:48 Worship Pastor: BALTAZAR MEASUREMENT RESULTS: Intervals: Rate: 70 LA: 152 QRSD: 80 QT: 376 QTc: 406 [place]: P: 49 LA: 152 QRS: -19 T: 10 INTERPRETIVE STATEMENTS: Normal sinus rhythm Minimal voltage criteria for LVH, may be normal variant Borderline ECG Compared to ECG 01/31/2018 14:47:26 Left ventricular hypertrophy now present Electronically Signed On 04-02-19 12:44:24 CDT by Karsten Rashid
== END 2019-04-02 02:10 | disposition home or self-care (01) ==
LOC: ER 20:51
DX: M79.622 Pain in left upper arm (principal); Z72.0 Tobacco use
CPT/HCPCS: 36415; 71045; 80048; 80076; 83735; 83880; 84484; 85025; 85610; 93005; 99284

== ENCOUNTER 2021-05-22 09:11 | Emergency (ER) | payer OTHER ==
--- OUTSIDE RECORDS SUMMARY | 2021-05-22 09:24 | XMS REPORT | Continuity of Care Document ---
:1950 Author Organization [facility] t Address [address] [place] [address] Care Team Providers Name Role Phone Lu BROWN Primary Care Physician Roger Leigh MD Attending Clinician Terrance Ozuna LVN Attending Clinician Unavailable Karla BROWN Attending Clinician Jamaal Robertson DO Attending Clinician Otilia OCONNELL Attending Clinician Unavailable Milo BROWN Attending Clinician SADAF MORENO Attending Clinician Unavailable SADAF MORENO Admitting Clinician Unavailable Payers Payer Name Policy Type Policy Effective Date Expiration Date Sour ce Number MEDICAREMEDICARE PART [id number] 2015 Donaldo Quigley AND 00:00:00 [place] [id number] 2014- [place] [facility] [id number] 2016 [place] [id number] 00:00:00 Met rogers -PresentComme rcial Problems Condition Condition Condition Status Onset Resolution Last Treating Co mments Source Name Details Category Date Date Treatment Clinician Date Altered Altered Disease Active 2017-11 [place] mental mental 2-02 Methodi status status 00:00: st 00 Essential Essential Disease Active [facility] hypertensi hypertensi 3-27 Mei kes - on on 00:00: Medical 00 Center Aspiration Aspiration Disease Active [facility] pneumonia pneumonia 3-27 [facility] - 00:00: Medical 00 Center Metabolic Metabolic Disease Active [facility] encephalop encephalop 3-27 Mei kes - athy athy 00:00: Medical 00 [place] Oropharyng Oropharyng Disease Active [facility] eal eal 3-27 [facility] - dysphagia dysphagia 00:00: Medi luanne 00 Center ICH ICH Disease Active [facility] (intracere (intracere 3-16 Mei kes - bral bral 00:00: Medical hemorrhage hemorrhage 00 Ce nter ) ) Allergies, Adverse Reactions, Alerts This patient has no known allergies or adverse reactions. Social History Social Habit Start Date Stop Date Quantity Comments Source Sex Assigned At [facility] Std Drinks History [facility] Meth odist Alcohol Binge History [facility] 2020-01-11 2020-01-11 1 [place] Meth odist Alcohol Frequency 00:00:00 00:00:00 Tobacco use and 2020-01-11 2020-01-11 Never used [place] M ethodist exposure 00:00:00 00:00:00 Alcohol intake 2020-01-11 2020-01-11 Current [place] Me thodist 00:00:00 00:00:00 non-drinker of alcohol (finding) Smoking Status Start Date Stop Date Source Never smoker [facility] Methodis t Medications Ordered Filled Start Stop Current Ordering Indication Dosage Frequency Signature Comments Components Source Medication Medication Date Date Medication? Clinician (SIG) Name Name gabapentin Yes Occipital 300mg Q.5D Take 1 [facility] (NEURONTIN) 2-25 neuralgia capsule Methodi 300 mg 00:00: of left ([address] capsule 00 side total) by mouth 2 (two) times a day. memantine No Vascular 5mg Q.5D Take 1 H [place] (Namenda) 5 2-25 01-12 dementia tablet (5 Methodi MG tablet 00:00: 23:59 with mg total) st 00 :00 behavior by mouth 2 disturbance (two) (HCC) times a day. gabapentin Occipital 300mg Q.5D Take 1 [place] (NEURONTIN) 812 0225 neuralgia capsule Methodi 300 mg 00:00: 00:00 of left ([address] capsule 00 :00 side total) by mouth 2 (two) times a day. memantine Vascular 10mg Q.5D Take 1 [place] (Namenda) 801-12 dementia tablet (10 Methodi 10 MG 00:00: 00:00 with mg total) st tablet 00 :00 behavior by mouth 2 disturbance (two) (HCC) times a day. gabapentin No Occipital 300mg Q.5D Take 1 [place] (NEURONTIN) 6 08- neuralgia capsule Methodi 300 mg 00:00: 00:00 of left ([address] capsule 00 :00 side total) by mouth 2 (two) times a day. esomeprazol Yes 40mg QD Take 40 mg [facility] e (NexIUM) 2-24 by mouth Metho di 40 MG 11:26: daily st capsule 16 before breakfast. memantine No 10mg Q.5D Take 1 [place] (NAMENDA) 206-29 tablet (10 Met hodi 10 MG 00:00: 00:00 mg total) st tablet 00 :00 by mouth 2 (two) times a day. memantine 2019- No Wk 1: 5 mg [place] (NAMENDA) 5 2-24 0811 at night Met hodi MG tablet 00:00: 00:00 W2: [address] 00 :00 twice daily W3:10 mg am 5 mg night lisinopril Yes 10mg QD Take 10 mg [place] (PRINIVIL,Z 1-24 by mouth Meth arnold ESTRIL) 5 15:33: daily. st mg tablet 05 Hold sBP,110 or hr,60 metoprolol 2017-0 Yes Q12H [facility] tartrate 4-17 Methodi (LOPRESSOR) 00:00: st 50 mg 00 tablet atorvastati Yes 20mg QD Take [address] [facility] (LIPITOR) 3-30 by mouth Luke s - 20 MG 14:59: daily. Medical tablet 46 Center Procedures This patient has no known procedures. Plan of Care Planned Activity Planned Date Details Comments Source Future Scheduled 2021-06-18 INFLUENZA VACCINE Jennyferto n [facility] Test 00:00:00 [code = INFLUENZA VACCINE] Future Scheduled 2015 65+ PNEUMOCOCCAL [place] [facility] Test 00:00:00 VACCINE (1 of 1 - PPSV23) [code = 65+ PNEUMOCOCCAL VACCINE (1 of 1 - PPSV23)] Future Scheduled 2000 COLONOSCOPY SCREENING [facility] Test 00:00:00 [code = COLONOSCOPY SCREENING] Future Scheduled 2000 SHINGLES VACCINES (#1) [place] [facility] Test 00:00:00 [code = SHINGLES VACCINES (#1)] Future Scheduled 1968 Hepatitis C screening [facility] Test 00:00:00 (procedure) [code = 168301698] Encounters Start End Encounter Admission Attending Care Care Encounter Source Date/Time Date/Time Type Type Clinicians Facility Department ID 2018-09-10 Inpatient [facility] [id number] [place] 07:02:05 [facility] 2018-09-09 Inpatient [facility] [id number] H arr[place] 15:25:03 [facility] 2018-09-09 Inpatient [facility] [id number] H arr[place] 11:35:38 [facility] 2018-09-08 Inpatient [facility] [id number] H [place] 12:53:31 [facility] 2018-09-07 Inpatient [facility] [id number] H arris 09:44:00 [facility] 2021-05-10 2021-05[facility]10 [facility] [id number] 00:00:00 00:00:00 [facility] [id number] [facility] [id number] Professio [phone] nal [address] 2021-02-23 2021-02-23 [facility] [id number] 00:00:00 00:00:00 [facility] [id number] [facility] [id number] Professio [phone] nal [address] 2021-02-10 2021-02-10 Patient NISHI Ozuna [id number] 00:00:00 00:00:00 Secure Msg [facility]nera Carlos Di[facility] [id number] [facility] [id number] BANK [phone] BLDG. 144 2021-01-12 2021-01-12 Outpatient ETELVINA SOLANO [facility] [id number] [place] 00:00:00 00:00:[address] 2020-12-09 2020-12-09 Telephone Lu [facility] [id number] 00:00:00 00:00:00 [facility] [id number] Edward Tabiona [id number] Professio [phone] nal [facility] [address] 2020-12-07 2020-12-07 Patient Marcelo [facility] 1.2.840.114 [id number] 00:00:00 00:00:00 Outreach [facility] [id number] [facility] [id number] PAVILLION [phone] 388 2020-11-25 2020-11-25 Refill Lu [facility] [id number] 00:00:00 00:00:00 [facility] [id number] Edward [place] [id number] Professio [phone] nal [facility] [address] One 2020-08-30 2020-08-30 [facility] 1.2.840.114 [id number] 00:00:00 00:00:00 [facility] [id number] [place] [id number] Professio [phone] nal [facility] [address] 2020-06-29 2020-06-29 Outpatient ETELVINA SOLANO [facility] [id number] [place] 00:00:00 00:00:[address] 2020-06-09 2020-06-09 [facility] 1.2.840.114 [id number] 00:00:00 00:00:00 [facility] [id number] Edward [place] [id number] Professio [phone] nal [facility] [address] 2020-05-09 2020-05-09 Refill Lu [facility] 1.2.840.114 [id number] 00:00:00 00:00:00 [facility] [id number] [place] [id number] Professio [phone] [place] [address] Office Building [facility] 2020-05-05 2020-05-05 Outpatient [facility] [id number] [place] 00:00:00 00:00:[address] 2020-04-04 2020-04-04 Telemedici Lu [facility] 1.2.840.114 [id number] 09:45:08 10:00:08 ne Visit Conrado Dumont [id number] [place] [id number] Professio [phone] 2020-03-25 2020-03-25 [facility] 1.2.840.114 [id number] 00:00:00 00:00:00 Outreach Conrado Dumont [id number] [place] [id number] Professio [phone] [address] 2020-03-22 2020-03-22 Outpatient ETELVINA SOLANO [facility] [id number] [place] 00:00:00 00:00:[address] 2020-03-21 2020-03-21 Patient Lu [facility] 1.2.840.114 [id number] 00:00:00 00:00:00 Secure Msg Conrado Diana [id number] [place] [id number] Professio [phone] [place] [address] Office [facility] 2020-03-21 2020-03-21 Telephone [facility] 1.2.840.114 [id number] 00:00:00 00:00:00 Conrado [facility] [id number] [place] [id number] Professio [phone] [place] [address] Office Building [facility] 2020-02-26 2020-02-26 Patient Milo [facility] 1.2.840.114 [id number] 00:00:00 00:00:00 Secure Msg [place]ie LEUNG [id number] [place] [id number] [phone] [facility] 2018-09-10 2018-09-10 Outpatient [facility] [id number] Tow 00:00:00 00:00:00 Health 2018-09-08 2018-09-08 Outpatient [facility] [id number] Tow 00:00:00 00:00:00 Health 2018-09-05 2018-09-05 Outpatient [facility] [id number] Tow 10:26:16 10:26:16 Health 2018-09-05 2018-09-05 Outpatient [facility] [id number] Tow 03:02:32 03:02:32 Health 2018-09-04 2018-09-04 Emergency [facility] [id number] Tow 19:36:56 19:36:56 Health 2018-09-04 2018-09-04 Inpatient [facility] [id number] Tow 15:51:37 15:51:37 Health Results Test Description Test Time Test Comments Results Result Comments Source MAGNESIUM 2018-02-14 06:17:00 Test Item Value Reference Range Interpretation Comme nts MAGNESIUM (BEAKER) (test code = 627) 2.0 mg/dL 1.6-2.6 BASIC METABOLIC [id number] 06:17:00 Test Item Value Reference Range Interpretation Comments SODIUM (BEAKER) 143 meq/L 136-145 (test code = 381) POTASSIUM (BEAKER) 3.7 meq/L 3.5-5.1 (test code = 379) CHLORIDE (BEAKER) 113 meq/L 98-107 H (test code = 382) CO2 (BEAKER) (test 22 meq/L 22-29 code = 355) BLOOD UREA NITROGEN 14 mg/dL 7-21 (BEAKER) (test code = 354) CREATININE (BEAKER) 0.69 mg/dL 0.57-1.25 (test code = 358) GLUCOSE RANDOM 97 mg/dL 70-105 (BEAKER) (test code = 652) CALCIUM (BEAKER) 9.0 mg/dL 8.4-10.2 (test code = 697) EGFR (BEAKER) (test 114 mL/min/1.73 ESTIM ATED GFR IS code = 1092) sq m NOT ACCURATE CREATININE CLEARANCE IN PREDICTING GLOMERULAR FILTRATION RATE . ESTIMATED GFR I S NOT APPLICABLE FOR DIALYSIS PATIEN TS. CBC W/PLT COUNT & AUTO [id number] 05:34:00 Test Item Value Reference Range Interpretation Comments WHITE BLOOD CELL COUNT (BEAKER) 9.4 K/ L 3.5-10.5 (test code = 775) RED BLOOD CELL COUNT (BEAKER) 4.25 M/ L 4.63-6.08 L (test code = 761) HEMOGLOBIN (BEAKER) (test code = 13.7 GM/DL 13.7-17.5 410) HEMATOCRIT (BEAKER) (test code = 40.6 % 40.1-51.0 411) MEAN CORPUSCULAR VOLUME (BEAKER) 95.5 fL 79.0-92.2 H (test code = 753) MEAN CORPUSCULAR HEMOGLOBIN 32.2 pg 25.7-32.2 (BEAKER) (test code = 751) MEAN CORPUSCULAR HEMOGLOBIN CONC 33.7 GM/DL 32.3-36.5 (BEAKER) (test code = 752) RED CELL DISTRIBUTION WIDTH 13.0 % 11.6-14.4 (BEAKER) (test code = 412) PLATELET COUNT (BEAKER) (test 321 K/CU MM 150-450 code = 756) MEAN PLATELET VOLUME (BEAKER) 11.0 fL 9.4-12.4 (test code = 754) NUCLEATED RED BLOOD CELLS 0 /100 WBC 0-0 (BEAKER) (test code = 413) NEUTROPHILS RELATIVE PERCENT 72 % (BEAKER) (test code = 429) LYMPHOCYTES RELATIVE PERCENT 17 % (BEAKER) (test code = 430) MONOCYTES RELATIVE PERCENT 10 % (BEAKER) (test code = 431) EOSINOPHILS RELATIVE PERCENT 0 % (BEAKER) (test code = 432) BASOPHILS RELATIVE PERCENT 0 % (BEAKER) (test code = 437) NEUTROPHILS ABSOLUTE COUNT 6.77 K/ L 1.78-5.38 H (BEAKER) (test code = 670) LYMPHOCYTES ABSOLUTE COUNT 1.57 K/ L 1.32-3.57 (BEAKER) (test code = 414) MONOCYTES ABSOLUTE COUNT (BEAKER) 0.91 K/ L 0.30-0.82 H (test code = 415) EOSINOPHILS ABSOLUTE COUNT 0.00 K/ L 0.04-0.54 L (BEAKER) (test code = 416) BASOPHILS ABSOLUTE COUNT (BEAKER) 0.04 K/ L 0.01-0.08 (test code = 417) IMMATURE GRANULOCYTES-RELATIVE 1 % 0-1 PERCENT (BEAKER) (test code = 2801) POCT-GLUCOSE [id number] 05:21:00 Test Item Value Reference Range Interpretation Comments POC-GLUCOSE METER 105 mg/dL 70-110 TESTED AT [facility] 6720 (BEAKER) (test code = CRISTINE Siddiqi [place] 1538) [address] POCT-GLUCOSE [id number] 01:28:00 Test Item Value Reference Range Interpretation Comments POC-GLUCOSE METER 108 mg/dL 70-110 TESTED AT [facility] 6720 (BEAKER) (test code = CRISTINE Siddiqi [place] 1538) [address] [id number] 05:19:00 Test Item Value Reference Range Interpretation Comments MAGNESIUM (BEAKER) (test code = 1.8 mg/dL 1.6-2.6 627) BASIC METABOLIC [id number] 05:19:00 Test Item Value Reference Range Interpretation Comments SODIUM (BEAKER) 143 meq/L 136-145 (test code = 381) POTASSIUM (BEAKER) 3.8 meq/L 3.5-5.1 (test code = 379) CHLORIDE (BEAKER) 115 meq/L 98-107 H (test code = 382) CO2 (BEAKER) (test 21 meq/L 22-29 L code = 355) BLOOD UREA NITROGEN 18 mg/dL 7-21 (BEAKER) (test code = 354) CREATININE (BEAKER) 0.71 mg/dL 0.57-1.25 (test code = 358) GLUCOSE RANDOM 104 mg/dL 70-105 (BEAKER) (test code = 652) CALCIUM (BEAKER) 8.8 mg/dL 8.4-10.2 (test code = 697) EGFR (BEAKER) (test 111 mL/min/1.73 ESTIM ATED GFR IS code = 1092) sq m NOT ACCURATE CREATININE CLEARANCE IN PREDICTING GLOMERULAR FILTRATION RATE . ESTIMATED GFR I S NOT APPLICABLE FOR DIALYSIS PATIEN TS. CBC W/PLT COUNT & AUTO [id number] 04:56:00 Test Item Value Reference Range Interpretation Comments WHITE BLOOD CELL COUNT (BEAKER) 9.9 K/ L 3.5-10.5 (test code = 775) RED BLOOD CELL COUNT (BEAKER) 4.06 M/ L 4.63-6.08 L (test code = 761) HEMOGLOBIN (BEAKER) (test code = 12.8 GM/DL 13.7-17.5 L 410) HEMATOCRIT (BEAKER) (test code = 39.0 % 40.1-51.0 L 411) MEAN CORPUSCULAR VOLUME (BEAKER) 96.1 fL 79.0-92.2 H (test code = 753) MEAN CORPUSCULAR HEMOGLOBIN 31.5 pg 25.7-32.2 (BEAKER) (test code = 751) MEAN CORPUSCULAR HEMOGLOBIN CONC 32.8 GM/DL 32.3-36.5 (BEAKER) (test code = 752) RED CELL DISTRIBUTION WIDTH 13.2 % 11.6-14.4 (BEAKER) (test code = 412) PLATELET COUNT (BEAKER) (test 293 K/CU MM 150-450 code = 756) MEAN PLATELET VOLUME (BEAKER) 11.4 fL 9.4-12.4 (test code = 754) NUCLEATED RED BLOOD CELLS 0 /100 WBC 0-0 (BEAKER) (test code = 413) NEUTROPHILS RELATIVE PERCENT 72 % (BEAKER) (test code = 429) LYMPHOCYTES RELATIVE PERCENT 14 % (BEAKER) (test code = 430) MONOCYTES RELATIVE PERCENT 12 % (BEAKER) (test code = 431) EOSINOPHILS RELATIVE PERCENT 0 % (BEAKER) (test code = 432) BASOPHILS RELATIVE PERCENT 1 % (BEAKER) (test code = 437) NEUTROPHILS ABSOLUTE COUNT 7.15 K/ L 1.78-5.38 H (BEAKER) (test code = 670) LYMPHOCYTES ABSOLUTE COUNT 1.38 K/ L 1.32-3.57 (BEAKER) (test code = 414) MONOCYTES ABSOLUTE COUNT (BEAKER) 1.21 K/ L 0.30-0.82 H (test code = 415) EOSINOPHILS ABSOLUTE COUNT 0.00 K/ L 0.04-0.54 L (BEAKER) (test code = 416) BASOPHILS ABSOLUTE COUNT (BEAKER) 0.05 K/ L 0.01-0.08 (test code = 417) IMMATURE GRANULOCYTES-RELATIVE 1 % 0-1 PERCENT (BEAKER) (test code = 2801) POCT-GLUCOSE [id number] 00:15:00 Test Item Value Reference Range Interpretation Comments POC-GLUCOSE METER 104 mg/dL 70-110 TESTED AT [facility] 67[facility] (test code = C[place] [address]) [address] BLOOD [id number] 11:00:00 Test Item Value Reference Range Interpretation Comments CULTURE (BEAKER) (test No growth in 5 days code = 1095) BLOOD [id number] 11:00:00 Test Item Value Reference Range Interpretation Comments CULTURE (BEAKER) (test No growth in 5 days code = 1095) [id number] 06:39:00 Test Item Value Reference Range Interpretation Comments MAGNESIUM (BEAKER) 2.2 mg/dL 1.6-2.6 Specimen slightly (test code = 627) hemolyzed BASIC METABOLIC [id number] 06:39:00 Test Item Value Reference Range Interpretation Comments SODIUM (BEAKER) 140 meq/L 136-145 (test code = 381) POTASSIUM (BEAKER) 4.1 meq/L 3.5-5.1 Specimen slightly (test code = 379) hemolyzed CHLORIDE (BEAKER) 113 meq/L 98-107 H (test code = 382) CO2 (BEAKER) (test 18 meq/L 22-29 L code = 355) BLOOD UREA NITROGEN 17 mg/dL 7-21 (BEAKER) (test code = 354) CREATININE (BEAKER) 0.68 mg/dL 0.57-1.25 Specimen slightly (test code = 358) hemolyzed GLUCOSE RANDOM 104 mg/dL 70-105 (BEAKER) (test code = 652) CALCIUM (BEAKER) 9.3 mg/dL 8.4-10.2 (test code = 697) EGFR (BEAKER) (test 116 mL/min/1.73 ESTIM ATED GFR IS code = 1092) sq m NOT ACCURATE CREATININE CLEARANCE IN PREDICTING GLOMERULAR FILTRATION RATE . ESTIMATED GFR I S NOT APPLICABLE FOR DIALYSIS PATIEN TS. CBC W/PLT COUNT & AUTO [id number] 06:02:00 Test Item Value Reference Range Interpretation Comments WHITE BLOOD CELL COUNT (BEAKER) 13.0 K/ L 3.5-10.5 H (test code = 775) RED BLOOD CELL COUNT (BEAKER) 4.11 M/ L 4.63-6.08 L (test code = 761) HEMOGLOBIN (BEAKER) (test code = 13.2 GM/DL 13.7-17.5 L 410) HEMATOCRIT (BEAKER) (test code = 39.7 % 40.1-51.0 L 411) MEAN CORPUSCULAR VOLUME (BEAKER) 96.6 fL 79.0-92.2 H (test code = 753) MEAN CORPUSCULAR HEMOGLOBIN 32.1 pg 25.7-32.2 (BEAKER) (test code = 751) MEAN CORPUSCULAR HEMOGLOBIN CONC 33.2 GM/DL 32.3-36.5 (BEAKER) (test code = 752) RED CELL DISTRIBUTION WIDTH 13.2 % 11.6-14.4 (BEAKER) (test code = 412) PLATELET COUNT (BEAKER) (test 300 K/CU MM 150-450 code = 756) MEAN PLATELET VOLUME (BEAKER) 11.6 fL 9.4-12.4 (test code = 754) NUCLEATED RED BLOOD CELLS 0 /100 WBC 0-0 (BEAKER) (test code = 413) NEUTROPHILS RELATIVE PERCENT 77 % (BEAKER) (test code = 429) LYMPHOCYTES RELATIVE PERCENT 11 % (BEAKER) (test code = 430) MONOCYTES RELATIVE PERCENT 11 % (BEAKER) (test code = 431) EOSINOPHILS RELATIVE PERCENT 0 % (BEAKER) (test code = 432) BASOPHILS RELATIVE PERCENT 0 % (BEAKER) (test code = 437) NEUTROPHILS ABSOLUTE COUNT 10.02 K/ L 1.78-5.38 H (BEAKER) (test code = 670) LYMPHOCYTES ABSOLUTE COUNT 1.47 K/ L 1.32-3.57 (BEAKER) (test code = 414) MONOCYTES ABSOLUTE COUNT (BEAKER) 1.40 K/ L 0.30-0.82 H (test code = 415) EOSINOPHILS ABSOLUTE COUNT 0.00 K/ L 0.04-0.54 L (BEAKER) (test code = 416) BASOPHILS ABSOLUTE COUNT (BEAKER) 0.05 K/ L 0.01-0.08 (test code = 417) IMMATURE GRANULOCYTES-RELATIVE 1 % 0-1 PERCENT (BEAKER) (test code = 2801) FL, ESOPH, SWALLOW FUNCTION, WITH CINE OR [id number] 13:56:00Reason for exam:->dysphagiaFINAL REPORT INDICATION: Dysphagia. TECHNIQUE: [...] patient swallowing was acquired. IMPRESSION:Laryngeal penetration. Signed: Connor Lockett MDReport Verified Date/Time: 02/11/2018 13:56:12 Reading Location: [address] Ortho Consult Reading Room POCT-GLUCOSE [id number] 06:21:00 Test Item Value Reference Range Interpretation Comments POC-GLUCOSE METER 119 mg/dL 70-110 H TESTED AT [facility] 6720 (BEAKER) (test code = CRISTINE Siddiqi [place]) [id number] 05:33:00 Test Item Value Reference Range Interpretation Comments MAGNESIUM (BEAKER) (test code = 1.7 mg/dL 1.6-2.6 627) BASIC METABOLIC [id number] 05:33:00 Test Item Value Reference Range Interpretation Comments SODIUM (BEAKER) 140 meq/L 136-145 (test code = 381) POTASSIUM (BEAKER) 3.7 meq/L 3.5-5.1 (test code = 379) CHLORIDE (BEAKER) 111 meq/L 98-107 H (test code = 382) CO2 (BEAKER) (test 20 meq/L 22-29 L code = 355) BLOOD UREA NITROGEN 18 mg/dL 7-21 (BEAKER) (test code = 354) CREATININE (BEAKER) 0.69 mg/dL 0.57-1.25 (test code = 358) GLUCOSE RANDOM 119 mg/dL 70-105 H (BEAKER) (test code = 652) CALCIUM (BEAKER) 9.4 mg/dL 8.4-10.2 (test code = 697) EGFR (BEAKER) (test 114 mL/min/1.73 ESTIM ATED GFR IS code = 1092) sq m NOT ACCURATE CREATININE CLEARANCE IN PREDICTING GLOMERULAR FILTRATION RATE . ESTIMATED GFR I S NOT APPLICABLE FOR DIALYSIS PATIEN TS. CBC W/PLT COUNT & AUTO [id number] 05:14:00 Test Item Value Reference Range Interpretation Comments WHITE BLOOD CELL COUNT (BEAKER) 11.8 K/ L 3.5-10.5 H (test code = 775) RED BLOOD CELL COUNT (BEAKER) 4.18 M/ L 4.63-6.08 L (test code = 761) HEMOGLOBIN (BEAKER) (test code = 13.2 GM/DL 13.7-17.5 L 410) HEMATOCRIT (BEAKER) (test code = 39.5 % 40.1-51.0 L 411) MEAN CORPUSCULAR VOLUME (BEAKER) 94.5 fL 79.0-92.2 H (test code = 753) MEAN CORPUSCULAR HEMOGLOBIN 31.6 pg 25.7-32.2 (BEAKER) (test code = 751) MEAN CORPUSCULAR HEMOGLOBIN CONC 33.4 GM/DL 32.3-36.5 (BEAKER) (test code = 752) RED CELL DISTRIBUTION WIDTH 13.1 % 11.6-14.4 (BEAKER) (test code = 412) PLATELET COUNT (BEAKER) (test 257 K/CU MM 150-450 code = 756) MEAN PLATELET VOLUME (BEAKER) 11.7 fL 9.4-12.4 (test code = 754) NUCLEATED RED BLOOD CELLS 0 /100 WBC 0-0 (BEAKER) (test code = 413) NEUTROPHILS RELATIVE PERCENT 77 % (BEAKER) (test code = 429) LYMPHOCYTES RELATIVE PERCENT 12 % (BEAKER) (test code = 430) MONOCYTES RELATIVE PERCENT 10 % (BEAKER) (test code = 431) EOSINOPHILS RELATIVE PERCENT 0 % (BEAKER) (test code = 432) BASOPHILS RELATIVE PERCENT 0 % (BEAKER) (test code = 437) NEUTROPHILS ABSOLUTE COUNT 9.12 K/ L 1.78-5.38 H (BEAKER) (test code = 670) LYMPHOCYTES ABSOLUTE COUNT 1.39 K/ L 1.32-3.57 (BEAKER) (test code = 414) MONOCYTES ABSOLUTE COUNT (BEAKER) 1.21 K/ L 0.30-0.82 H (test code = 415) EOSINOPHILS ABSOLUTE COUNT 0.00 K/ L 0.04-0.54 L (BEAKER) (test code = 416) BASOPHILS ABSOLUTE COUNT (BEAKER) 0.04 K/ L 0.01-0.08 (test code = 417) IMMATURE GRANULOCYTES-RELATIVE 1 % 0-1 PERCENT (BEAKER) (test code = 2801) POCT-GLUCOSE [id number] 23:54:00 Test Item Value Reference Range Interpretation Comments POC-GLUCOSE METER 125 mg/dL 70-110 H TESTED AT [place] [address] (BEAKER) (test code = CRISTINE Siddiqi [facility] 1538) [id number] POCT-GLUCOSE [id number] 18:08:00 Test Item Value Reference Range Interpretation Comments POC-GLUCOSE METER 106 mg/dL 70-110 [facility] AT [place] [address] [facility] (test code = CRISTINE Siddiqi [facility] 1538) [id number] POCT-GLUCOSE [id number] 13:26:00 Test Item Value Reference Range Interpretation Comments POC-GLUCOSE METER 122 mg/dL 70-110 H TESTED AT [place] [address] [facility] (test code = CRISTINE Siddiqi [facility] 1538) [id number] POCT-GLUCOSE [id number] 06:11:00 Test Item Value Reference Range Interpretation Comments POC-GLUCOSE METER 121 mg/dL 70-110 H TESTED AT [place] [address] [facility] (test code = CRISTINE Siddiqi [facility] 1538) [id number] VANCOMYCIN LEVEL, [id number] 02:13:00 Test Item Value Reference Range Interpretation Comments VANCOMYCIN TROUGH (BEAKER) (test 7.7 ug/mL 10.0-20.0 L code = 522) [id number] 02:00:00 Test Item Value Reference Range Interpretation Comments MAGNESIUM (BEAKER) (test code = 1.7 mg/dL 1.6-2.6 627) BASIC METABOLIC [id number] 02:00:00 Test Item Value Reference Range Interpretation Comments SODIUM (BEAKER) 141 meq/L 136-145 (test code = 381) POTASSIUM (BEAKER) 3.7 meq/L 3.5-5.1 (test code = 379) CHLORIDE (BEAKER) 113 meq/L 98-107 H (test code = 382) CO2 (BEAKER) (test 18 meq/L 22-29 L code = 355) BLOOD UREA NITROGEN 20 mg/dL 7-21 (BEAKER) (test code = 354) CREATININE (BEAKER) 0.70 mg/dL 0.57-1.25 (test code = 358) GLUCOSE RANDOM 127 mg/dL 70-105 H (BEAKER) (test code = 652) CALCIUM (BEAKER) 8.8 mg/dL 8.4-10.2 (test code = 697) EGFR (BEAKER) (test 112 mL/min/1.73 ESTIM ATED GFR IS code = 1092) sq m NOT ACCURATE CREATININE CLEARANCE IN PREDICTING GLOMERULAR FILTRATION RATE . ESTIMATED GFR I S NOT APPLICABLE FOR DIALYSIS PATIEN TS. CBC W/PLT COUNT & AUTO [id number] 01:46:00 Test Item Value Reference Range Interpretation Comments WHITE BLOOD CELL COUNT (BEAKER) 9.3 K/ L 3.5-10.5 (test code = 775) RED BLOOD CELL COUNT (BEAKER) 4.00 M/ L 4.63-6.08 L (test code = 761) HEMOGLOBIN (BEAKER) (test code = 12.6 GM/DL 13.7-17.5 L 410) HEMATOCRIT (BEAKER) (test code = 38.4 % 40.1-51.0 L 411) MEAN CORPUSCULAR VOLUME (BEAKER) 96.0 fL 79.0-92.2 H (test code = 753) MEAN CORPUSCULAR HEMOGLOBIN 31.5 pg 25.7-32.2 (BEAKER) (test code = 751) MEAN CORPUSCULAR HEMOGLOBIN CONC 32.8 GM/DL 32.3-36.5 (BEAKER) (test code = 752) RED CELL DISTRIBUTION WIDTH 13.2 % 11.6-14.4 (BEAKER) (test code = 412) PLATELET COUNT (BEAKER) (test 213 K/CU MM 150-450 code = 756) MEAN PLATELET VOLUME (BEAKER) 12.0 fL 9.4-12.4 (test code = 754) NUCLEATED RED BLOOD CELLS 0 /100 WBC 0-0 (BEAKER) (test code = 413) NEUTROPHILS RELATIVE PERCENT 76 % (BEAKER) (test code = 429) LYMPHOCYTES RELATIVE PERCENT 12 % (BEAKER) (test code = 430) MONOCYTES RELATIVE PERCENT 11 % (BEAKER) (test code = 431) EOSINOPHILS RELATIVE PERCENT 0 % (BEAKER) (test code = 432) BASOPHILS RELATIVE PERCENT 0 % (BEAKER) (test code = 437) NEUTROPHILS ABSOLUTE COUNT 7.01 K/ L 1.78-5.38 H (BEAKER) (test code = 670) LYMPHOCYTES ABSOLUTE COUNT 1.12 K/ L 1.32-3.57 L ([facility]) (test code = 414) MONOCYTES ABSOLUTE COUNT ([facility]) 1.03 K/ L 0.30-0.82 H (test code = 415) EOSINOPHILS ABSOLUTE COUNT 0.00 K/ L 0.04-0.54 L ([facility]) (test code = 416) BASOPHILS ABSOLUTE COUNT ([facility]) 0.04 K/ L 0.01-0.08 (test code = 417) IMMATURE GRANULOCYTES-RELATIVE 1 % 0-1 PERCENT ([facility]) (test code = 2801) POCT-GLUCOSE [id number] 00:38:00 Test Item Value Reference Range Interpretation Comments POC-GLUCOSE METER 116 mg/dL 70-110 H TESTED AT [facility] 67 ([facility]) (test code = [place] 1538) [id number] POCT-GLUCOSE [id number] 18:06:00 Test Item Value Reference Range Interpretation Comments POC-GLUCOSE METER 118 mg/dL 70-110 H TESTED AT [facility] 67 ([facility]) (test code = [place] 1538) [id number] POCT-GLUCOSE [id number] 12:07:00 Test Item Value Reference Range Interpretation Comments POC-GLUCOSE METER 126 mg/dL 70-110 H TESTED AT [facility] 67 ([facility]) (test code = CRISTINE Siddiqi [facility] 1538) [id number] URINE [id number] 10:54:00 Test Item Value Reference Range Interpretation Comments CULTURE ([facility]) (test CITROBACTER A >100, 000 col/mL code = 1095) WERTONOI Citrobacter holdeni Amikacin (test code = S 1) Aztreonam (test code = S 32) Cefepime (test code = S 51) Cefoxitin (test code = R 68) Ceftazidime (test code S = 27) Ceftriaxone (test code S = 52) Ertapenem (test code = S 38) Gentamicin (test code S = 18) Levofloxacin (test S code = 22) Meropenem (test code = S 34) Nitrofurantoin (test S code = 23) Piperacillin + S Tazobactam (test code = 29) Tetracycline (test S code = 2) Tobramycin (test code S = 25) Trimethoprim + S Sulfamethoxazole (test code = 47) CBC W/PLT COUNT & AUTO [id number] 10:20:00 Test Item Value Reference Range Interpretation Comments WHITE BLOOD CELL COUNT (BEAKER) 10.1 K/ L 3.5-10.5 (test code = 775) RED BLOOD CELL COUNT (BEAKER) 3.97 M/ L 4.63-6.08 L (test code = 761) HEMOGLOBIN (BEAKER) (test code = 12.5 GM/DL 13.7-17.5 L 410) HEMATOCRIT (BEAKER) (test code = 38.8 % 40.1-51.0 L 411) MEAN CORPUSCULAR VOLUME (BEAKER) 97.7 fL 79.0-92.2 H (test code = 753) MEAN CORPUSCULAR HEMOGLOBIN 31.5 pg 25.7-32.2 (BEAKER) (test code = 751) MEAN CORPUSCULAR HEMOGLOBIN CONC 32.2 GM/DL 32.3-36.5 L (BEAKER) (test code = 752) RED CELL DISTRIBUTION WIDTH 13.5 % 11.6-14.4 (BEAKER) (test code = 412) PLATELET COUNT (BEAKER) (test 224 K/CU MM 150-450 code = 756) MEAN PLATELET VOLUME (BEAKER) 11.6 fL 9.4-12.4 (test code = 754) NUCLEATED RED BLOOD CELLS 0 /100 WBC 0-0 (BEAKER) (test code = 413) NEUTROPHILS RELATIVE PERCENT 78 % (BEAKER) (test code = 429) LYMPHOCYTES RELATIVE PERCENT 12 % (BEAKER) (test code = 430) MONOCYTES RELATIVE PERCENT 9 % (BEAKER) (test code = 431) EOSINOPHILS RELATIVE PERCENT 0 % (BEAKER) (test code = 432) BASOPHILS RELATIVE PERCENT 0 % (BEAKER) (test code = 437) NEUTROPHILS ABSOLUTE COUNT 7.84 K/ L 1.78-5.38 H (BEAKER) (test code = 670) LYMPHOCYTES ABSOLUTE COUNT 1.21 K/ L 1.32-3.57 L (BEAKER) (test code = 414) MONOCYTES ABSOLUTE COUNT (BEAKER) 0.95 K/ L 0.30-0.82 H (test code = 415) EOSINOPHILS ABSOLUTE COUNT 0.01 K/ L 0.04-0.54 L (BEAKER) (test code = 416) BASOPHILS ABSOLUTE COUNT (BEAKER) 0.04 K/ L 0.01-0.08 (test code = 417) IMMATURE GRANULOCYTES-RELATIVE 1 % 0-1 PERCENT (BEAKER) (test code = 2801) [id number] 09:52:00 Test Item Value Reference Range Interpretation Comments MAGNESIUM (BEAKER) (test code = 1.6 mg/dL 1.6-2.6 627) BASIC METABOLIC [id number] 09:52:00 Test Item Value Reference Range Interpretation Comments SODIUM (BEAKER) 144 meq/L 136-145 (test code = 381) POTASSIUM (BEAKER) 3.6 meq/L 3.5-5.1 (test code = 379) CHLORIDE (BEAKER) 116 meq/L 98-107 H (test code = 382) CO2 (BEAKER) (test 21 meq/L 22-29 L code = 355) BLOOD UREA NITROGEN 23 mg/dL 7-21 H (BEAKER) (test code = 354) CREATININE (BEAKER) 0.82 mg/dL 0.57-1.25 (test code = 358) GLUCOSE RANDOM 118 mg/dL 70-105 H (BEAKER) (test code = 652) CALCIUM (BEAKER) 9.0 mg/dL 8.4-10.2 (test code = 697) EGFR (BEAKER) (test 94 mL/min/1.73 ESTIMA BALJEET GFR IS code = 1092) sq m NOT ACCURATE CREATININE CLEARANCE IN PREDICTING GLOMERULAR FILTRATION RATE . ESTIMATED GFR I S NOT APPLICABLE FOR DIALYSIS PATIEN TS. POCT-GLUCOSE [id number] 06:02:00 Test Item Value Reference Range Interpretation Comments POC-GLUCOSE METER 117 mg/dL 70-110 H TESTED AT [facility] 6720 (BEAKER) (test code = [place] 1538) [id number] SPUTUM CULTURE + GRAM [id number] 13:31:00 Test Item Value Reference Interpretation Comments Range CULTURE (BEAKER) STAPHYLOCOCCUS A 3+ Staphy lococcus (test code = 1095) AUREUS aureus Clindamycin (test S code = 10) Erythromycin (test S code = 4) Linezolid (test code S = 40) Nitrofurantoin (test S code = 23) Oxacillin (test code S = 14) Rifampin (test code = S 43) Tetracycline (test S code = 2) Trimethoprim + S Sulfamethoxazole (test code = 47) Vancomycin (test code S = 13) CULTURE (BEAKER) A 4+ Haemophi iveth (test code = 1095) influenza eBeta-lac tamase negative GRAM STAIN RESULT 4+ WBCs (BEAKER) (test code = 1123) GRAM STAIN RESULT 0-5 epithelial (BEAKER) (test code = cells 813907) GRAM STAIN RESULT 4+ gram negative (BEAKER) (test code = coccobacilli 203381) GRAM STAIN RESULT 4+ gram positive (BEAKER) (test code = cocci in chains, 238639) pairs and clusters 3+ Normal respiratory carla presentPOCT-GLUCOSE [id number] 12:11:00 Test Item Value Reference Range Interpretation Comments POC-GLUCOSE METER 130 mg/dL 70-110 H TESTED AT [facility] 6720 (BEAKER) (test code = [place] 1538) [address] CBC W/PLT COUNT & AUTO [id number] 11:19:00 Test Item Value Reference Range Interpretation Comments WHITE BLOOD CELL COUNT (BEAKER) 13.2 K/ L 3.5-10.5 H (test code = 775) RED BLOOD CELL COUNT (BEAKER) 4.32 M/ L 4.63-6.08 L (test code = 761) HEMOGLOBIN (BEAKER) (test code = 14.0 GM/DL 13.7-17.5 410) HEMATOCRIT (BEAKER) (test code = 41.4 % 40.1-51.0 411) MEAN CORPUSCULAR VOLUME (BEAKER) 95.8 fL 79.0-92.2 H (test code = 753) MEAN CORPUSCULAR HEMOGLOBIN 32.4 pg 25.7-32.2 H (BEAKER) (test code = 751) MEAN CORPUSCULAR HEMOGLOBIN CONC 33.8 GM/DL 32.3-36.5 (BEAKER) (test code = 752) RED CELL DISTRIBUTION WIDTH 13.5 % 11.6-14.4 (BEAKER) (test code = 412) PLATELET COUNT (BEAKER) (test 219 K/CU MM 150-450 code = 756) MEAN PLATELET VOLUME (BEAKER) 11.2 fL 9.4-12.4 (test code = 754) NUCLEATED RED BLOOD CELLS 0 /100 WBC 0-0 (BEAKER) (test code = 413) IMMATURE GRANULOCYTES-RELATIVE 1 % 0-1 PERCENT (BEAKER) (test code = 2801) (MANUAL DIFFERENTIAL)2018-02-08 11:19:00 Test Item Value Reference Range Interpretation Comments NEUTROPHILS - REL (DIFF) (BEAKER) 81 % (test code = 1359) LYMPHOCYTES - REL (DIFF) (BEAKER) 6 % (test code = 1360) MONOCYTES - REL (DIFF) (BEAKER) 9 % (test code = 1361) BANDS - REL (DIFF) (BEAKER) (test 4 % 0-10 code = 1348) NEUTROPHILS - ABS (DIFF) (BEAKER) 10.69 K/ L 1.80-8.00 H (test code = 1365) LYMPHOCYTES - ABS (DIFF) (BEAKER) 0.79 K/ L 1.48-4.50 L (test code = 1366) MONOCYTES - ABS (DIFF) (BEAKER) 1.19 K/ L 0.00-1.30 (test code = 1367) BANDS-ABS (DIFF) (BEAKER) (test 0.5 K/ L 0.0-0.8 code = 1349) TOTAL COUNTED (BEAKER) (test code 100 = 1351) BANDS + SEGMENTED NEUTROPHILS 11.22 (BEAKER) (test code = 1352) WBC MORPHOLOGY (BEAKER) (test code Normal = 487) RBC MORPHOLOGY (BEAKER) (test code Normal = 762) LARGE PLT(BEAKER) (test code = Present 215) VANCOMYCIN LEVEL, [id number] 10:54:00 Test Item Value Reference Range Interpretation Comments VANCOMYCIN TROUGH (BEAKER) (test 4.9 ug/mL 10.0-20.0 L code = 522) [id number] 05:55:00 Test Item Value Reference Range Interpretation Comments MAGNESIUM (BEAKER) 2.1 mg/dL 1.6-2.6 Specimen slightly (test code = 627) hemolyzed BASIC METABOLIC [id number] 05:55:00 Test Item Value Reference Range Interpretation Comments SODIUM (BEAKER) 150 meq/L 136-145 H (test code = 381) POTASSIUM (BEAKER) 3.7 meq/L 3.5-5.1 Specimen slightly (test code = 379) hemolyzed CHLORIDE (BEAKER) 120 meq/L 98-107 H (test code = 382) CO2 (BEAKER) (test 18 meq/L 22-29 L code = 355) BLOOD UREA NITROGEN 28 mg/dL 7-21 H (BEAKER) (test code = 354) CREATININE (BEAKER) 0.95 mg/dL 0.57-1.25 Specimen slightly (test code = 358) hemolyzed GLUCOSE RANDOM 136 mg/dL 70-105 H (BEAKER) (test code = 652) CALCIUM (BEAKER) 9.6 mg/dL 8.4-10.2 (test code = 697) EGFR (BEAKER) (test 79 mL/min/1.73 ESTIMA BALJEET GFR IS code = 1092) sq m NOT ACCURATE CREATININE CLEARANCE IN PREDICTING GLOMERULAR FILTRATION RATE . ESTIMATED GFR I S NOT APPLICABLE FOR DIALYSIS PATIEN TS. POCT-GLUCOSE [id number] 05:54:00 Test Item Value Reference Range Interpretation Comments POC-GLUCOSE METER 142 mg/dL 70-110 H TESTED AT [place] [address] ([facility]) (test code = [facility] 1538) [id number] POCT-GLUCOSE [id number] 01:01:00 Test Item Value Reference Range Interpretation Comments POC-GLUCOSE METER 128 mg/dL 70-110 H TESTED AT [place] [address] ([facility]) (test code = [facility] 1538) [id number] POCT-GLUCOSE [id number] 17:53:00 Test Item Value Reference Range Interpretation Comments POC-GLUCOSE METER 123 mg/dL 70-110 H TESTED AT [place] [address] ([facility]) (test code = [facility] 1538) [id number] POCT-GLUCOSE [id number] 12:36:00 Test Item Value Reference Range Interpretation Comments POC-GLUCOSE METER 136 mg/dL 70-110 H TESTED AT [place] [address] ([facility]) (test code = [facility] 1538) [address] CBC W/PLT COUNT & AUTO [id number] 11:39:00 Test Item Value Reference Range Interpretation Comments WHITE BLOOD CELL COUNT ([facility]) 14.1 K/ L 3.5-10.5 H (test code = 775) RED BLOOD CELL COUNT (BEAKER) 4.59 M/ L 4.63-6.08 L (test code = 761) HEMOGLOBIN (BEAKER) (test code = 14.7 GM/DL 13.7-17.5 410) HEMATOCRIT (BEAKER) (test code = 43.4 % 40.1-51.0 411) MEAN CORPUSCULAR VOLUME (BEAKER) 94.6 fL 79.0-92.2 H (test code = 753) MEAN CORPUSCULAR HEMOGLOBIN 32.0 pg 25.7-32.2 (BEAKER) (test code = 751) MEAN CORPUSCULAR HEMOGLOBIN CONC 33.9 GM/DL 32.3-36.5 (BEAKER) (test code = 752) RED CELL DISTRIBUTION WIDTH 13.3 % 11.6-14.4 (BEAKER) (test code = 412) PLATELET COUNT (BEAKER) (test 227 K/CU MM 150-450 code = 756) MEAN PLATELET VOLUME (BEAKER) 10.6 fL 9.4-12.4 (test code = 754) NUCLEATED RED BLOOD CELLS 0 /100 WBC 0-0 (BEAKER) (test code = 413) NEUTROPHILS RELATIVE PERCENT 85 % (BEAKER) (test code = 429) LYMPHOCYTES RELATIVE PERCENT 3 % (BEAKER) (test code = 430) MONOCYTES RELATIVE PERCENT 11 % (BEAKER) (test code = 431) EOSINOPHILS RELATIVE PERCENT 0 % (BEAKER) (test code = 432) BASOPHILS RELATIVE PERCENT 0 % (BEAKER) (test code = 437) NEUTROPHILS ABSOLUTE COUNT 11.93 K/ L 1.78-5.38 H (BEAKER) (test code = 670) LYMPHOCYTES ABSOLUTE COUNT 0.48 K/ L 1.32-3.57 L (BEAKER) (test code = 414) MONOCYTES ABSOLUTE COUNT (BEAKER) 1.57 K/ L 0.30-0.82 H (test code = 415) EOSINOPHILS ABSOLUTE COUNT 0.00 K/ L 0.04-0.54 L (BEAKER) (test code = 416) BASOPHILS ABSOLUTE COUNT (BEAKER) 0.03 K/ L 0.01-0.08 (test code = 417) IMMATURE GRANULOCYTES-RELATIVE 1 % 0-1 PERCENT (BEAKER) (test code = 2801) (MANUAL DIFFERENTIAL)2018-02-07 11:39:00 Test Item Value Reference Range Interpretation Comments TOTAL COUNTED (BEAKER) (test code = 1351) WBC MORPHOLOGY (BEAKER) (test code = Normal 487) PLT MORPHOLOGY (BEAKER) (test code = Normal 486) RBC MORPHOLOGY (BEAKER) (test code = Normal 762) POCT-GLUCOSE [id number] 07:00:00 Test Item Value Reference Range Interpretation Comments POC-GLUCOSE METER 101 mg/dL 70-110 TESTED AT [facility] 6720 (BEAKER) (test code = [place] 1538) [id number] BASIC METABOLIC [id number] 06:30:00 Test Item Value Reference Range Interpretation Comments SODIUM (BEAKER) 153 meq/L 136-145 H (test code = 381) POTASSIUM (BEAKER) 3.5 meq/L 3.5-5.1 (test code = 379) CHLORIDE (BEAKER) 120 meq/L 98-107 H (test code = 382) CO2 (BEAKER) (test 17 meq/L 22-29 L code = 355) BLOOD UREA NITROGEN 23 mg/dL 7-21 H (BEAKER) (test code = 354) CREATININE (BEAKER) 1.01 mg/dL 0.57-1.25 (test code = 358) GLUCOSE RANDOM 102 mg/dL 70-105 (BEAKER) (test code = 652) CALCIUM (BEAKER) 9.9 mg/dL 8.4-10.2 (test code = 697) EGFR (BEAKER) (test 74 mL/min/1.73 ESTIMA BALJEET GFR IS code = 1092) sq m NOT ACCURATE CREATININE CLEARANCE IN PREDICTING GLOMERULAR FILTRATION RATE . ESTIMATED GFR I S NOT APPLICABLE FOR DIALYSIS PATIEN TS. Specimen slightly ictericPROTHROMBIN [id number] 05:52:00 Test Item Value Reference Range Interpretation Comments PROTIME (BEAKER) (test code = 17.4 seconds 11.7-14.7 H 759) INR (BEAKER) (test code = 370) 1.4 <=5.9 RECOMMENDED COUMADIN/WARFARIN INR THERAPY RANGESSTANDARD DOSE: 2.0 - 3.0 Includes: PROPHYLAXIS forvenous thrombosis, systemic embolization; TREATMENT for venous thrombosis and/or pulmonary embolus.HIGH RISK: Target INR is 2.5-3.5 for patients with mechanical heart valves.[id number] 05:52:00 Test Item Value Reference Range Interpretation Comments PARTIAL THROMBOPLASTIN TIME 32.3 seconds 22.5-36.0 (BEAKER) (test code = 760) URINALYSIS W/ [id number] 00:07:00 Test Item Value Reference Range Interpretation Comments COLOR (BEAKER) (test code = 470) Yellow CLARITY (BEAKER) (test code = 469) Hazy SPECIFIC GRAVITY UA (BEAKER) (test 1.030 1.001-1.035 code = 468) PH UA (BEAKER) (test code = 467) 6.0 5.0-8.0 PROTEIN UA (BEAKER) (test code = Negative Negative 464) GLUCOSE UA (BEAKER) (test code = Negative Negative 365) KETONES UA (BEAKER) (test code = Negative Negative 371) BILIRUBIN UA (BEAKER) (test code = Negative Negative 462) BLOOD UA (BEAKER) (test code = 461) Small Negative A NITRITE UA (BEAKER) (test code = Negative Negative 465) LEUKOCYTE ESTERASE UA (BEAKER) Trace Negative A (test code = 466) UROBILINOGEN UA (BEAKER) (test code 0.2 mg/dL 0.2-1.0 = 463) RBC UA (BEAKER) (test code = 519) 1 /HPF WBC UA (BEAKER) (test code = 520) 2 /HPF BACTERIA (BEAKER) (test code = 517) Rare SOURCE(BEAKER) (test code = 2795) POCT-GLUCOSE [id number] 23:07:00 Test Item Value Reference Range Interpretation Comments POC-GLUCOSE METER 109 mg/dL 70-110 TESTED AT [facility] 6720 (BEAKER) (test code = [place] 1538) [address] RAD, CHEST, 1 VIEW, NON [id number] 21:27:00Reason for exam:->fever, tachypnea, high risk of aspirationShould this be performed at the bedside ?->YesFINAL REPORT RAD, CHEST, 1 VIEW, NON DEPT [...] MDReport Verified Date/Time: 02/06/2018 21:27:48 Reading Location: [facility] B1 C013Y CT Body Reading Room POCT-GLUCOSE [id number] 17:40:00 Test Item Value Reference Range Interpretation Comments POC-GLUCOSE METER 108 mg/dL 70-110 TESTED AT [place] [address] ([facility]) (test code = CRISTINE Siddiqi [facility] 1538) [address] RAD, ABDOMEN/KUB, 1 VIEW [id number] 17:35:00Reason for exam:->check corpak placementFINAL REPORT AP abdomen HISTORY: Feeding tube COMPARISON: 02/04/2018 IMPRESSION:Feeding tube advanced, remaining along the greater curvature the stomach, not transpyloric. Signed:Christiano Granados Verified Date/Time: 02/06/2018 17:35:54 Reading Location: [facility] Mammo Reading Room POCT-GLUCOSE [id number] 11:47:00 Test Item Value Reference Range Interpretation Comments POC-GLUCOSE METER 108 mg/dL 70-110 TESTED AT [place] [address] [facility] (test code = [place] 1538) [address] [id number] 06:20:00 Test Item Value Reference Range Interpretation Comments PHOSPHORUS (BEAKER) (test code = 3.2 mg/dL 2.3-4.7 604) [id number] 06:20:00 Test Item Value Reference Range Interpretation Comments MAGNESIUM (BEAKER) (test code = 1.9 mg/dL 1.6-2.6 627) BASIC METABOLIC [id number] 06:20:00 Test Item Value Reference Range Interpretation Comments SODIUM (BEAKER) 143 meq/L 136-145 (test code = 381) POTASSIUM (BEAKER) 3.9 meq/L 3.5-5.1 (test code = 379) CHLORIDE (BEAKER) 114 meq/L 98-107 H (test code = 382) CO2 (BEAKER) (test 20 meq/L 22-29 L code = 355) BLOOD UREA NITROGEN 22 mg/dL 7-21 H (BEAKER) (test code = 354) CREATININE (BEAKER) 0.85 mg/dL 0.57-1.25 (test code = 358) GLUCOSE RANDOM 121 mg/dL 70-105 H (BEAKER) (test code = 652) CALCIUM (BEAKER) 10.0 mg/dL 8.4-10.2 (test code = 697) EGFR (BEAKER) (test 90 mL/min/1.73 ESTIMA BALJEET GFR IS code = 1092) sq m NOT ACCURATE CREATININE CLEARANCE IN PREDICTING GLOMERULAR FILTRATION RATE . ESTIMATED GFR I S NOT APPLICABLE FOR DIALYSIS PATIEN TS. POCT-GLUCOSE [id number] 06:18:00 Test Item Value Reference Range Interpretation Comments POC-GLUCOSE METER 117 mg/dL 70-110 H TESTED AT [facility] 6720 ([facility]) (test code = [place] [facility] 1538) [address] CBC W/PLT COUNT & AUTO [id number] 06:00:00 Test Item Value Reference Range Interpretation Comments WHITE BLOOD CELL COUNT (BEAKER) 10.5 K/ L 3.5-10.5 (test code = 775) RED BLOOD CELL COUNT (BEAKER) 4.52 M/ L 4.63-6.08 L (test code = 761) HEMOGLOBIN (BEAKER) (test code = 14.4 GM/DL 13.7-17.5 410) HEMATOCRIT (BEAKER) (test code = 42.1 % 40.1-51.0 411) MEAN CORPUSCULAR VOLUME (BEAKER) 93.1 fL 79.0-92.2 H (test code = 753) MEAN CORPUSCULAR HEMOGLOBIN 31.9 pg 25.7-32.2 (BEAKER) (test code = 751) MEAN CORPUSCULAR HEMOGLOBIN CONC 34.2 GM/DL 32.3-36.5 (BEAKER) (test code = 752) RED CELL DISTRIBUTION WIDTH 13.2 % 11.6-14.4 (BEAKER) (test code = 412) PLATELET COUNT (BEAKER) (test 204 K/CU MM 150-450 code = 756) MEAN PLATELET VOLUME (BEAKER) 10.7 fL 9.4-12.4 (test code = 754) NUCLEATED RED BLOOD CELLS 0 /100 WBC 0-0 (BEAKER) (test code = 413) NEUTROPHILS RELATIVE PERCENT 77 % (BEAKER) (test code = 429) LYMPHOCYTES RELATIVE PERCENT 8 % (BEAKER) (test code = 430) MONOCYTES RELATIVE PERCENT 15 % (BEAKER) (test code = 431) EOSINOPHILS RELATIVE PERCENT 0 % (BEAKER) (test code = 432) BASOPHILS RELATIVE PERCENT 0 % (BEAKER) (test code = 437) NEUTROPHILS ABSOLUTE COUNT 8.06 K/ L 1.78-5.38 H (BEAKER) (test code = 670) LYMPHOCYTES ABSOLUTE COUNT 0.83 K/ L 1.32-3.57 L (BEAKER) (test code = 414) MONOCYTES ABSOLUTE COUNT (BEAKER) 1.53 K/ L 0.30-0.82 H (test code = 415) EOSINOPHILS ABSOLUTE COUNT 0.00 K/ L 0.04-0.54 L (BEAKER) (test code = 416) BASOPHILS ABSOLUTE COUNT (BEAKER) 0.03 K/ L 0.01-0.08 (test code = 417) IMMATURE GRANULOCYTES-RELATIVE 0 % 0-1 PERCENT (BEAKER) (test code = 2801) POCT-GLUCOSE [id number] 00:52:00 Test Item Value Reference Range Interpretation Comments POC-GLUCOSE METER 129 mg/dL 70-110 H TESTED AT [facility] 6720 (BEAKER) (test code = [place] 1538) [id number] PROTHROMBIN [id number] 00:32:00 Test Item Value Reference Range Interpretation Comments PROTIME (BEAKER) (test code = 15.2 seconds 11.7-14.7 H 759) INR (BEAKER) (test code = 370) 1.2 <=5.9 RECOMMENDED COUMADIN/WARFARIN INR THERAPY RANGESSTANDARD DOSE: 2.0 - 3.0 Includes: PROPHYLAXIS forvenous thrombosis, systemic embolization; TREATMENT for venous thrombosis and/or pulmonary embolus.HIGH RISK: Target INR is 2.5-3.5 for patients with mechanical heart valves.POCT-GLUCOSE [id number] 00:25:00 Test Item Value Reference Range Interpretation Comments POC-GLUCOSE METER 113 mg/dL 70-110 H TESTED AT [facility] [address] (BEAKER) (test code = [place] 1538) [id number] POCT-GLUCOSE [id number] 18:42:00 Test Item Value Reference Range Interpretation Comments POC-GLUCOSE METER 131 mg/dL 70-110 H TESTED AT [facility] 67[address] (BEAKER) (test code = [place] 1538) [id number] BASIC METABOLIC [id number] 15:45:00 Test Item Value Reference Range Interpretation Comments SODIUM (BEAKER) 143 meq/L 136-145 (test code = 381) POTASSIUM (BEAKER) 3.5 meq/L 3.5-5.1 (test code = 379) CHLORIDE (BEAKER) 114 meq/L 98-107 H (test code = 382) CO2 (BEAKER) (test 17 meq/L 22-29 L code = 355) BLOOD UREA NITROGEN 19 mg/dL 7-21 (BEAKER) (test code = 354) CREATININE (BEAKER) 0.71 mg/dL 0.57-1.25 (test code = 358) GLUCOSE RANDOM 118 mg/dL 70-105 H (BEAKER) (test code = 652) CALCIUM (BEAKER) 9.4 mg/dL 8.4-10.2 (test code = 697) EGFR (BEAKER) (test 111 mL/min/1.73 ESTIM ATED GFR IS code = 1092) sq m NOT ACCURATE CREATININE CLEARANCE IN PREDICTING GLOMERULAR FILTRATION RATE . ESTIMATED GFR I S NOT APPLICABLE FOR DIALYSIS PATIEN TS. POCT-GLUCOSE [id number] 12:52:00 Test Item Value Reference Range Interpretation Comments POC-GLUCOSE METER 101 mg/dL 70-110 TESTED AT [facility] 67[address] (BEAKER) (test code = [place]idd[place] 1538) [id number] BASIC METABOLIC [id number] 11:57:00 Test Item Value Reference Range Interpretation Comments SODIUM (BEAKER) 146 meq/L 136-145 H This is a co rrected (test code = 381) result. Pr evious result was 141 meq/L on 018 at 0751 CDT POTASSIUM (BEAKER) 3.5 meq/L 3.5-5.1 (test code = 379) CHLORIDE (BEAKER) 115 meq/L 98-107 H (test code = 382) CO2 (BEAKER) (test 16 meq/L 22-29 L code = 355) BLOOD UREA NITROGEN 19 mg/dL 7-21 (BEAKER) (test code = 354) CREATININE (BEAKER) 0.74 mg/dL 0.57-1.25 (test code = 358) GLUCOSE RANDOM 111 mg/dL 70-105 H (BEAKER) (test code = 652) CALCIUM (BEAKER) 9.1 mg/dL 8.4-10.2 (test code = 697) EGFR (BEAKER) (test 105 mL/min/1.73 ESTIM ATED GFR IS code = 1092) sq m NOT ACCURATE CREATININE CLEARANCE IN PREDICTING GLOMERULAR FILTRATION RATE . ESTIMATED GFR I S NOT APPLICABLE FOR DIALYSIS PATIEN TS. [id number] 07:51:00 Test Item Value Reference Range Interpretation Comments PHOSPHORUS (BEAKER) (test code = 2.9 mg/dL 2.3-4.7 604) [id number] 07:51:00 Test Item Value Reference Range Interpretation Comments MAGNESIUM (BEAKER) (test code = 2.1 mg/dL 1.6-2.6 627) POCT-GLUCOSE [id number] 05:53:00 Test Item Value Reference Range Interpretation Comments POC-GLUCOSE METER 114 mg/dL 70-110 H TESTED AT [facility] 67[address] (BEAKER) (test code = [place] 1538) [id number] CBC W/PLT COUNT & AUTO [id number] 04:49:00 Test Item Value Reference Range Interpretation Comments WHITE BLOOD CELL COUNT (BEAKER) 7.3 K/ L 3.5-10.5 (test code = 775) RED BLOOD CELL COUNT (BEAKER) 4.38 M/ L 4.63-6.08 L (test code = 761) HEMOGLOBIN (BEAKER) (test code = 14.2 GM/DL 13.7-17.5 410) HEMATOCRIT (BEAKER) (test code = 40.9 % 40.1-51.0 411) MEAN CORPUSCULAR VOLUME (BEAKER) 93.4 fL 79.0-92.2 H (test code = 753) MEAN CORPUSCULAR HEMOGLOBIN 32.4 pg 25.7-32.2 H (BEAKER) (test code = 751) MEAN CORPUSCULAR HEMOGLOBIN CONC 34.7 GM/DL 32.3-36.5 (BEAKER) (test code = 752) RED CELL DISTRIBUTION WIDTH 13.1 % 11.6-14.4 (BEAKER) (test code = 412) PLATELET COUNT (BEAKER) (test 161 K/CU MM 150-450 code = 756) MEAN PLATELET VOLUME (BEAKER) 10.6 fL 9.4-12.4 (test code = 754) NUCLEATED RED BLOOD CELLS 0 /100 WBC 0-0 (BEAKER) (test code = 413) NEUTROPHILS RELATIVE PERCENT 70 % (BEAKER) (test code = 429) LYMPHOCYTES RELATIVE PERCENT 11 % (BEAKER) (test code = 430) MONOCYTES RELATIVE PERCENT 18 % (BEAKER) (test code = 431) EOSINOPHILS RELATIVE PERCENT 0 % (BEAKER) (test code = 432) BASOPHILS RELATIVE PERCENT 1 % (BEAKER) (test code = 437) NEUTROPHILS ABSOLUTE COUNT 5.15 K/ L 1.78-5.38 (BEAKER) (test code = 670) LYMPHOCYTES ABSOLUTE COUNT 0.79 K/ L 1.32-3.57 L (BEAKER) (test code = 414) MONOCYTES ABSOLUTE COUNT (BEAKER) 1.31 K/ L 0.30-0.82 H (test code = 415) EOSINOPHILS ABSOLUTE COUNT 0.00 K/ L 0.04-0.54 L (BEAKER) (test code = 416) BASOPHILS ABSOLUTE COUNT (BEAKER) 0.04 K/ L 0.01-0.08 (test code = 417) IMMATURE GRANULOCYTES-RELATIVE 1 % 0-1 PERCENT (BEAKER) (test code = 2801) POCT-GLUCOSE [id number] 00:02:00 Test Item Value Reference Range Interpretation Comments POC-GLUCOSE METER 115 mg/dL 70-110 H TESTED AT [facility] 6720 (BEAKER) (test code = CRISTINE ALONZO 1538) [address] POCT-GLUCOSE [id number] 19:23:00 Test Item Value Reference Range Interpretation Comments POC-GLUCOSE METER 108 mg/dL 70-110 TESTED AT [facility] 6720 (BEAKER) (test code = CRISTINE ALONZO 1538) [address] [id number] 18:25:00 Test Item Value Reference Range Interpretation Comments MAGNESIUM (BEAKER) (test code = 1.9 mg/dL 1.6-2.6 627) Check Serum Phosphorus level 4 hours after IV phosphorus replacement or 8 hours after PO replacementcompleted.8 hours after PO replacement completedPHOSPHORUS 2018-02-04 18:25:00 Test Item Value Reference Range Interpretation Comments PHOSPHORUS (BEAKER) (test code = 2.7 mg/dL 2.3-4.7 604) Check Serum Phosphorus level 4 hours after IV phosphorus replacement or 8 hours after PO replacementcompleted.8 hours after PO replacement completedPOTASSIUM 2018-02-04 18:25:00 Test Item Value Reference Range Interpretation Comments POTASSIUM (BEAKER) (test code = 4.2 meq/L 3.5-5.1 379) Check Serum Phosphorus level 4 hours after IV phosphorus replacement or 8 hours after PO replacementcompleted.8 hours after PO replacement completedRAD, ABDOMEN/KUB, 1 VIEW [id number] 13:13:00Reason for exam:->corpak Should this be performed at the bedside?->YesFINAL REPORT AP abdomen HISTORY: Feeding tube COMPARISON: None IMPRESSION:Feeding tube present projecting within the stomach. Bowel gas pattern not well assessed but grossly nonobstructive. Signed: Christiano Granados MDReport Verified Date/Time: 02/04/2018 13:13:34 Reading Location: [facility] POCT-GLUCOSE [id number] 12:24:00 Test Item Value Reference Range Interpretation Comments POC-GLUCOSE METER 103 mg/dL 70-110 TESTED AT [facility] 67[facility] (test code = [facility] 1538) [address] POCT-GLUCOSE [id number] 06:15:00 Test Item Value Reference Range Interpretation Comments POC-GLUCOSE METER 95 mg/dL 70-110 TESTED AT [facility] 6720 [facility] (test code = [facility] Neeru [facility] [address] 1538) [id number] 03:37:00 Test Item Value Reference Range Interpretation Comments PHOSPHORUS (BEAKER) (test code = 2.2 mg/dL 2.3-4.7 L 604) [id number] 03:37:00 Test Item Value Reference Range Interpretation Comments MAGNESIUM (BEAKER) (test code = 1.7 mg/dL 1.6-2.6 627) BASIC METABOLIC [id number] 03:37:00 Test Item Value Reference Range Interpretation Comments SODIUM (BEAKER) 141 meq/L 136-145 (test code = 381) POTASSIUM (BEAKER) 3.8 meq/L 3.5-5.1 (test code = 379) CHLORIDE (BEAKER) 113 meq/L 98-107 H (test code = 382) CO2 (BEAKER) (test 17 meq/L 22-29 L code = 355) BLOOD UREA NITROGEN 16 mg/dL 7-21 (BEAKER) (test code = 354) CREATININE (BEAKER) 0.80 mg/dL 0.57-1.25 (test code = 358) GLUCOSE RANDOM 99 mg/dL 70-105 (BEAKER) (test code = 652) CALCIUM (BEAKER) 8.1 mg/dL 8.4-10.2 L (test code = 697) EGFR (BEAKER) (test 96 mL/min/1.73 ESTIMA BALJEET GFR IS code = 1092) sq m NOT ACCURATE CREATININE CLEARANCE IN PREDICTING GLOMERULAR FILTRATION RATE . ESTIMATED GFR I S NOT APPLICABLE FOR DIALYSIS PATIEN TS. CBC W/PLT COUNT & AUTO [id number] 03:36:00 Test Item Value Reference Range Interpretation Comments WHITE BLOOD CELL COUNT (BEAKER) 7.1 K/ L 3.5-10.5 (test code = 775) RED BLOOD CELL COUNT (BEAKER) 4.33 M/ L 4.63-6.08 L (test code = 761) HEMOGLOBIN (BEAKER) (test code = 13.6 GM/DL 13.7-17.5 L 410) HEMATOCRIT (BEAKER) (test code = 40.1 % 40.1-51.0 411) MEAN CORPUSCULAR VOLUME (BEAKER) 92.6 fL 79.0-92.2 H (test code = 753) MEAN CORPUSCULAR HEMOGLOBIN 31.4 pg 25.7-32.2 (BEAKER) (test code = 751) MEAN CORPUSCULAR HEMOGLOBIN CONC 33.9 GM/DL 32.3-36.5 (BEAKER) (test code = 752) RED CELL DISTRIBUTION WIDTH 12.8 % 11.6-14.4 (BEAKER) (test code = 412) PLATELET COUNT (BEAKER) (test 169 K/CU MM 150-450 code = 756) MEAN PLATELET VOLUME (BEAKER) 10.4 fL 9.4-12.4 (test code = 754) NUCLEATED RED BLOOD CELLS 0 /100 WBC 0-0 (BEAKER) (test code = 413) NEUTROPHILS RELATIVE PERCENT 78 % (BEAKER) (test code = 429) LYMPHOCYTES RELATIVE PERCENT 9 % (BEAKER) (test code = 430) MONOCYTES RELATIVE PERCENT 13 % (BEAKER) (test code = 431) EOSINOPHILS RELATIVE PERCENT 0 % (BEAKER) (test code = 432) BASOPHILS RELATIVE PERCENT 0 % (BEAKER) (test code = 437) NEUTROPHILS ABSOLUTE COUNT 5.55 K/ L 1.78-5.38 H (BEAKER) (test code = 670) LYMPHOCYTES ABSOLUTE COUNT 0.61 K/ L 1.32-3.57 L (BEAKER) (test code = 414) MONOCYTES ABSOLUTE COUNT (BEAKER) 0.90 K/ L 0.30-0.82 H (test code = 415) EOSINOPHILS ABSOLUTE COUNT 0.00 K/ L 0.04-0.54 L (BEAKER) (test code = 416) BASOPHILS ABSOLUTE COUNT (BEAKER) 0.03 K/ L 0.01-0.08 (test code = 417) IMMATURE GRANULOCYTES-RELATIVE 0 % 0-1 PERCENT (BEAKER) (test code = 2801) POCT-GLUCOSE [id number] 00:31:00 Test Item Value Reference Range Interpretation Comments POC-GLUCOSE METER 111 mg/dL 70-110 H TESTED AT [place] [address] ([facility]) (test code = [facility] 1538) [address] POCT-GLUCOSE [id number] 18:42:00 Test Item Value Reference Range Interpretation Comments POC-GLUCOSE METER 91 mg/dL 70-110 TESTED AT [place] [address] ([facility]) (test code = [facility] [address] 1538) POCT-GLUCOSE [id number] 15:25:00 Test Item Value Reference Range Interpretation Comments POC-GLUCOSE METER 92 mg/dL 70-110 TESTED AT [place] [address] ([facility]) (test code = [facility] [address] 1538) CT BRAIN WITHOUT IV CONTRAST - [id number] 13:09:00Reason for exam:- >follow up EVD removalFINAL REPORT CT head without [...] MDReport Verified Date/Time: 02/03/2018 13:09:24 Reading Location: [address] Neuro Reading Room TITIS PANEL, [id number] 06:20:00 Test Item Value Reference Range Interpretation Comments HEPATITIS A IGM ANTIBODY (BEAKER) Nonreactive Nonreactive (test code = 498) HEPATITIS B CORE IGM ANTIBODY Nonreactive Nonreactive (BEAKER) (test code = 645) HEPATITIS C ANTIBODY (BEAKER) Reactive Nonreactive A (test code = 367) HEPATITIS B SURFACE ANTIGEN (2) Nonreactive Nonreactive (BEAKER) (test code = 2585) [id number] 04:57:00 Test Item Value Reference Range Interpretation Comments MAGNESIUM (BEAKER) (test code = 1.9 mg/dL 1.6-2.6 627) BASIC METABOLIC [id number] 04:57:00 Test Item Value Reference Range Interpretation Comments SODIUM (BEAKER) 137 meq/L 136-145 (test code = 381) POTASSIUM (BEAKER) 3.6 meq/L 3.5-5.1 (test code = 379) CHLORIDE (BEAKER) 111 meq/L 98-107 H (test code = 382) CO2 (BEAKER) (test 18 meq/L 22-29 L code = 355) BLOOD UREA NITROGEN 13 mg/dL 7-21 (BEAKER) (test code = 354) CREATININE (BEAKER) 0.82 mg/dL 0.57-1.25 (test code = 358) GLUCOSE RANDOM 102 mg/dL 70-105 (BEAKER) (test code = 652) CALCIUM (BEAKER) 8.6 mg/dL 8.4-10.2 (test code = 697) EGFR (BEAKER) (test 94 mL/min/1.73 ESTIMA BALJEET GFR IS code = 1092) sq m NOT ACCURATE CREATININE CLEARANCE IN PREDICTING GLOMERULAR FILTRATION RATE . ESTIMATED GFR I S NOT APPLICABLE FOR DIALYSIS PATIEN TS. HEPATIC FUNCTION [id number] 04:57:00 Test Item Value Reference Range Interpretation Comments TOTAL PROTEIN (BEAKER) (test code = 6.1 gm/dL 6.0-8.3 770) ALBUMIN (BEAKER) (test code = 1145) 3.6 g/dL 3.5-5.0 BILIRUBIN TOTAL (BEAKER) (test code 1.1 mg/dL 0.2-1.2 = 377) BILIRUBIN DIRECT (BEAKER) (test 0.5 mg/dL 0.1-0.5 code = 706) ALKALINE PHOSPHATASE (BEAKER) (test 42 U/L 40-150 code = 346) AST (SGOT) (BEAKER) (test code = 29 U/L 5-34 353) ALT (SGPT) (BEAKER) (test code = 16 U/L 6-55 347) [id number] 04:56:00 Test Item Value Reference Range Interpretation Comments PHOSPHORUS (BEAKER) (test code = 1.7 mg/dL 2.3-4.7 L 604) CBC W/PLT COUNT & AUTO [id number] 03:59:00 Test Item Value Reference Range Interpretation Comments WHITE BLOOD CELL COUNT (BEAKER) 9.4 K/ L 3.5-10.5 (test code = 775) RED BLOOD CELL COUNT (BEAKER) 4.29 M/ L 4.63-6.08 L (test code = 761) HEMOGLOBIN (BEAKER) (test code = 13.7 GM/DL 13.7-17.5 410) HEMATOCRIT (BEAKER) (test code = 40.8 % 40.1-51.0 411) MEAN CORPUSCULAR VOLUME (BEAKER) 95.1 fL 79.0-92.2 H (test code = 753) MEAN CORPUSCULAR HEMOGLOBIN 31.9 pg 25.7-32.2 (BEAKER) (test code = 751) MEAN CORPUSCULAR HEMOGLOBIN CONC 33.6 GM/DL 32.3-36.5 (BEAKER) (test code = 752) RED CELL DISTRIBUTION WIDTH 14.0 % 11.6-14.4 (BEAKER) (test code = 412) PLATELET COUNT (BEAKER) (test 208 K/CU MM 150-450 code = 756) MEAN PLATELET VOLUME (BEAKER) 12.2 fL 9.4-12.4 (test code = 754) NUCLEATED RED BLOOD CELLS 0 /100 WBC 0-0 (BEAKER) (test code = 413) NEUTROPHILS RELATIVE PERCENT 78 % (BEAKER) (test code = 429) LYMPHOCYTES RELATIVE PERCENT 9 % (BEAKER) (test code = 430) MONOCYTES RELATIVE PERCENT 12 % (BEAKER) (test code = 431) EOSINOPHILS RELATIVE PERCENT 0 % (BEAKER) (test code = 432) BASOPHILS RELATIVE PERCENT 0 % (BEAKER) (test code = 437) NEUTROPHILS ABSOLUTE COUNT 7.31 K/ L 1.78-5.38 H (BEAKER) (test code = 670) LYMPHOCYTES ABSOLUTE COUNT 0.85 K/ L 1.32-3.57 L (BEAKER) (test code = 414) MONOCYTES ABSOLUTE COUNT (BEAKER) 1.14 K/ L 0.30-0.82 H (test code = 415) EOSINOPHILS ABSOLUTE COUNT 0.00 K/ L 0.04-0.54 L (BEAKER) (test code = 416) BASOPHILS ABSOLUTE COUNT (BEAKER) 0.02 K/ L 0.01-0.08 (test code = 417) IMMATURE GRANULOCYTES-RELATIVE 0 % 0-1 PERCENT (BEAKER) (test code = 2801) POCT-GLUCOSE [id number] 01:18:00 Test Item Value Reference Range Interpretation Comments POC-GLUCOSE METER 103 mg/dL 70-110 TESTED AT [place] [address] (BEAKER) (test code = CRISTINE Siddiqi [facility] 1538) [address] POCT-GLUCOSE [id number] 19:16:00 Test Item Value Reference Range Interpretation Comments POC-GLUCOSE METER 114 mg/dL 70-110 H TESTED AT [place] [address] (BEAKER) (test code = [facility] [place]er[place] [facility] 1538) [address] POCT-GLUCOSE [id number] 13:29:00 Test Item Value Reference Range Interpretation Comments POC-GLUCOSE METER 107 mg/dL 70-110 [facility] AT [place] [address] [facility] (test code = [facility] [place]eru [facility] 1538) [address] SPUTUM CULTURE + GRAM [id number] 10:09:00 Test Item Value Reference Range Interpretation Comments CULTURE (BEAKER) 1+ Normal respiratory (test code = 1095) carla present GRAM STAIN RESULT 1+ WBCs (BEAKER) (test code = 1123) GRAM STAIN RESULT 2+ gram positive cocci (BEAKER) (test code = in pairs 10216) GRAM STAIN RESULT 2+ gram positive cocci (BEAKER) (test code = in chains 78987) GRAM STAIN RESULT 0-5 epithelial cells (BEAKER) (test code = 399448) CBC W/PLT COUNT & AUTO [id number] 06:44:00 Test Item Value Reference Range Interpretation Comments WHITE BLOOD CELL COUNT (BEAKER) 10.0 K/ L 3.5-10.5 (test code = 775) RED BLOOD CELL COUNT (BEAKER) 4.09 M/ L 4.63-6.08 L (test code = 761) HEMOGLOBIN (BEAKER) (test code = 13.1 GM/DL 13.7-17.5 L 410) HEMATOCRIT (BEAKER) (test code = 39.5 % 40.1-51.0 L 411) MEAN CORPUSCULAR VOLUME (BEAKER) 96.6 fL 79.0-92.2 H (test code = 753) MEAN CORPUSCULAR HEMOGLOBIN 32.0 pg 25.7-32.2 (BEAKER) (test code = 751) MEAN CORPUSCULAR HEMOGLOBIN CONC 33.2 GM/DL 32.3-36.5 (BEAKER) (test code = 752) RED CELL DISTRIBUTION WIDTH 14.0 % 11.6-14.4 (BEAKER) (test code = 412) PLATELET COUNT (BEAKER) (test 166 K/CU MM 150-450 code = 756) MEAN PLATELET VOLUME (BEAKER) 10.7 fL 9.4-12.4 (test code = 754) NUCLEATED RED BLOOD CELLS 0 /100 WBC 0-0 (BEAKER) (test code = 413) NEUTROPHILS RELATIVE PERCENT 85 % (BEAKER) (test code = 429) LYMPHOCYTES RELATIVE PERCENT 5 % (BEAKER) (test code = 430) MONOCYTES RELATIVE PERCENT 10 % (BEAKER) (test code = 431) EOSINOPHILS RELATIVE PERCENT 0 % (BEAKER) (test code = 432) BASOPHILS RELATIVE PERCENT 0 % (BEAKER) (test code = 437) NEUTROPHILS ABSOLUTE COUNT 8.48 K/ L 1.78-5.38 H (BEAKER) (test code = 670) LYMPHOCYTES ABSOLUTE COUNT 0.52 K/ L 1.32-3.57 L (BEAKER) (test code = 414) MONOCYTES ABSOLUTE COUNT (BEAKER) 0.97 K/ L 0.30-0.82 H (test code = 415) EOSINOPHILS ABSOLUTE COUNT 0.00 K/ L 0.04-0.54 L (BEAKER) (test code = 416) BASOPHILS ABSOLUTE COUNT (BEAKER) 0.02 K/ L 0.01-0.08 (test code = 417) IMMATURE GRANULOCYTES-RELATIVE 0 % 0-1 PERCENT (BEAKER) (test code = 2801) POCT-GLUCOSE [id number] 06:25:00 Test Item Value Reference Range Interpretation Comments POC-GLUCOSE METER 115 mg/dL 70-110 H TESTED AT [facility] 6720 (BEAKER) (test code = CRISTINE ALONZO 1538) [address] BLOOD GAS, [id number] 06:22:00 Test Item Value Reference Range Interpretation Comments PH ARTERIAL (BEAKER) (test code = 7.49 7.35-7.45 H 383) PCO2 ARTERIAL (BEAKER) (test code 25 mmHg 35-45 L = 384) PO2 ARTERIAL (BEAKER) (test code 68 mmHg 80-90 L = 385) O2 SATURATION ARTERIAL (BEAKER) 94.9 % 96.0-97.0 L (test code = 386) HCO3 ARTERIAL (BEAKER) (test code 18 mmol/L 21-29 L = 388) BASE EXCESS ARTERIAL (BEAKER) -3.3 mmol/L -2.0-3.0 L (test code = 387) PATIENT TEMPERATURE (BEAKER) 37.3 C (test code = 1818) FIO2 (BEAKER) (test code = 1819) 21.0 % [id number] 05:44:00 Test Item Value Reference Range Interpretation Comments PHOSPHORUS (BEAKER) (test code = 1.7 mg/dL 2.3-4.7 L 604) [id number] 05:44:00 Test Item Value Reference Range Interpretation Comments MAGNESIUM (BEAKER) (test code = 1.9 mg/dL 1.6-2.6 627) BASIC METABOLIC [id number] 05:44:00 Test Item Value Reference Range Interpretation Comments SODIUM (BEAKER) 138 meq/L 136-145 (test code = 381) POTASSIUM (BEAKER) 3.6 meq/L 3.5-5.1 (test code = 379) CHLORIDE (BEAKER) 107 meq/L 98-107 (test code = 382) CO2 (BEAKER) (test 22 meq/L 22-29 code = 355) BLOOD UREA NITROGEN 9 mg/dL 7-21 (BEAKER) (test code = 354) CREATININE (BEAKER) 0.89 mg/dL 0.57-1.25 (test code = 358) GLUCOSE RANDOM 106 mg/dL 70-105 H (BEAKER) (test code = 652) CALCIUM (BEAKER) 8.9 mg/dL 8.4-10.2 (test code = 697) EGFR (BEAKER) (test 85 mL/min/1.73 ESTIMA BALJEET GFR IS code = 1092) sq m NOT ACCURATE CREATININE CLEARANCE IN PREDICTING GLOMERULAR FILTRATION RATE . ESTIMATED GFR I S NOT APPLICABLE FOR DIALYSIS PATIEN TS. POCT-GLUCOSE [id number] 00:49:00 Test Item Value Reference Range Interpretation Comments POC-GLUCOSE METER 124 mg/dL 70-110 H TESTED AT [facility] 6720 (BEAKER) (test code = CRISTINE FRAGA [place] 1533) [id number] POCT-GLUCOSE [id number] 18:34:00 Test Item Value Reference Range Interpretation Comments POC-GLUCOSE METER 144 mg/dL 70-110 H TESTED AT [facility] 6720 (BEAKER) (test code = CRISTINE [place]AG[place] 1538) [address] POCT-GLUCOSE [id number] 12:39:00 Test Item Value Reference Range Interpretation Comments POC-GLUCOSE METER 124 mg/dL 70-110 H TESTED AT [place] [id number] (BEAKER) (test code = CRISTIEN Siddiqi [facility] 1538) [address] BLOOD GAS, [id number] 11:19:00 Test Item Value Reference Range Interpretation Comments PH ARTERIAL (BEAKER) (test code = 7.45 7.35-7.45 383) PCO2 ARTERIAL (BEAKER) (test code 32 mmHg 35-45 L = 384) PO2 ARTERIAL (BEAKER) (test code 98 mmHg 80-90 H = 385) O2 SATURATION ARTERIAL (BEAKER) 97.6 % 96.0-97.0 H (test code = 386) HCO3 ARTERIAL (BEAKER) (test code 21 mmol/L 21-29 = 388) BASE EXCESS ARTERIAL (BEAKER) -1.5 mmol/L -2.0-3.0 (test code = 387) PATIENT TEMPERATURE (BEAKER) 37.5 C (test code = 1818) FIO2 (BEAKER) (test code = 1819) 32.0 % CT BRAIN WITHOUT IV CONTRAST - [id number] 09:26:00Reason for exam:- >ICH with IVHFINAL REPORT CT head without contrast 02/01/2018 9:25 AM CLINICAL HISTORY: ICHwith IVH TECHNIQUE: [...] volume subarachnoid hemorrhage. There is trace intraventricular hemorrhage, decreased when compared to the prior examination. Hyperdensity along the left falx cerebri may reflect trace subdural hemorrhage. There is been resolution of hydrocephalus status post drainage catheter placement. There is small volume pneumocephalus without concerning mass effect. The paranasal sinuses and tympanomastoid cavities are well aerated. There is no craniotomy offset or concerning subgaleal collection. IMPRESSION: Improved intracranial appearance. Signed: Salas Wiseman Verified Date/Time: 02/01/2018 09:26:57 Reading Location: [address] Neuro Reading Room HEMOGLOBIN [id number] 08:20:00 Test Item Value Reference Range Interpretation Comments HEMOGLOBIN A1C ([facility]) (test code = 6.1 % 4.3-6.1 368) RAD, CHEST, 1 VIEW, NON [id number] 07:38:00Reason for exam:- >intubationShould this be performed at the bedside?->YesFINAL REPORT [...] congestion without remarkable peripheral edema. Signed: Salas Wiseman Verified Date/Time: 02/01/2018 07:38:36 Reading Location: [address] Neuro Reading Room E lectronically signed by: SALAS WISEMAN M.D. on 02/01/2018 07:38 AMPOCT- GLUCOSE [id number] 06:57:00 Test Item Value Reference Range Interpretation Comments POC-GLUCOSE METER 123 mg/dL 70-110 H TESTED AT [facility] 6720 ([facility]) (test code = CRISTINE FRAG[place] 1538) [address] BLOOD GAS, [id number] 04:33:00 Test Item Value Reference Range Interpretation Comments PH ARTERIAL ([facility]) (test code = 7.39 7.35-7.45 383) PCO2 ARTERIAL (BEAKER) (test code 39 mmHg 35-45 = 384) PO2 ARTERIAL (BEAKER) (test code 262 mmHg 80-90 H = 385) O2 SATURATION ARTERIAL (BEAKER) 99.6 % 96.0-97.0 H (test code = 386) HCO3 ARTERIAL (BEAKER) (test code 23 mmol/L 21-29 = 388) BASE EXCESS ARTERIAL (BEAKER) -1.4 mmol/L -2.0-3.0 (test code = 387) PATIENT TEMPERATURE (BEAKER) 37.1 C (test code = 1818) FIO2 (BEAKER) (test code = 1819) 60.0 % [id number] 04:18:00 Test Item Value Reference Range Interpretation Comments PHOSPHORUS (BEAKER) (test code = 3.4 mg/dL 2.3-4.7 604) [id number] 04:18:00 Test Item Value Reference Range Interpretation Comments MAGNESIUM (BEAKER) (test code = 1.2 mg/dL 1.6-2.6 L 627) BASIC METABOLIC [id number] 04:18:00 Test Item Value Reference Range Interpretation Comments SODIUM (BEAKER) 138 meq/L 136-145 (test code = 381) POTASSIUM (BEAKER) 4.1 meq/L 3.5-5.1 (test code = 379) CHLORIDE (BEAKER) 109 meq/L 98-107 H (test code = 382) CO2 (BEAKER) (test 22 meq/L 22-29 code = 355) BLOOD UREA NITROGEN 10 mg/dL 7-21 (BEAKER) (test code = 354) CREATININE (BEAKER) 0.81 mg/dL 0.57-1.25 (test code = 358) GLUCOSE RANDOM 124 mg/dL 70-105 H (BEAKER) (test code = 652) CALCIUM (BEAKER) 8.4 mg/dL 8.4-10.2 (test code = 697) EGFR (BEAKER) (test 95 mL/min/1.73 ESTIMA BALJEET GFR IS code = 1092) sq m NOT ACCURATE CREATININE CLEARANCE IN PREDICTING GLOMERULAR FILTRATION RATE . ESTIMATED GFR I S NOT APPLICABLE FOR DIALYSIS PATIEN TS. CBC W/PLT COUNT & AUTO [id number] 04:06:00 Test Item Value Reference Range Interpretation Comments WHITE BLOOD CELL COUNT (BEAKER) 7.6 K/ L 3.5-10.5 (test code = 775) RED BLOOD CELL COUNT (BEAKER) 4.05 M/ L 4.63-6.08 L (test code = 761) HEMOGLOBIN (BEAKER) (test code = 13.0 GM/DL 13.7-17.5 L 410) HEMATOCRIT (BEAKER) (test code = 38.6 % 40.1-51.0 L 411) MEAN CORPUSCULAR VOLUME (BEAKER) 95.3 fL 79.0-92.2 H (test code = 753) MEAN CORPUSCULAR HEMOGLOBIN 32.1 pg 25.7-32.2 (BEAKER) (test code = 751) MEAN CORPUSCULAR HEMOGLOBIN CONC 33.7 GM/DL 32.3-36.5 (BEAKER) (test code = 752) RED CELL DISTRIBUTION WIDTH 13.6 % 11.6-14.4 (BEAKER) (test code = 412) PLATELET COUNT (BEAKER) (test 186 K/CU MM 150-450 code = 756) MEAN PLATELET VOLUME (BEAKER) 10.2 fL 9.4-12.4 (test code = 754) NUCLEATED RED BLOOD CELLS 0 /100 WBC 0-0 (BEAKER) (test code = 413) NEUTROPHILS RELATIVE PERCENT 80 % (BEAKER) (test code = 429) LYMPHOCYTES RELATIVE PERCENT 10 % (BEAKER) (test code = 430) MONOCYTES RELATIVE PERCENT 10 % (BEAKER) (test code = 431) EOSINOPHILS RELATIVE PERCENT 0 % (BEAKER) (test code = 432) BASOPHILS RELATIVE PERCENT 0 % (BEAKER) (test code = 437) NEUTROPHILS ABSOLUTE COUNT 6.04 K/ L 1.78-5.38 H (BEAKER) (test code = 670) LYMPHOCYTES ABSOLUTE COUNT 0.72 K/ L 1.32-3.57 L (BEAKER) (test code = 414) MONOCYTES ABSOLUTE COUNT (BEAKER) 0.76 K/ L 0.30-0.82 (test code = 415) EOSINOPHILS ABSOLUTE COUNT 0.00 K/ L 0.04-0.54 L (BEAKER) (test code = 416) BASOPHILS ABSOLUTE COUNT (BEAKER) 0.02 K/ L 0.01-0.08 (test code = 417) IMMATURE GRANULOCYTES-RELATIVE 0 % 0-1 PERCENT (BEAKER) (test code = 2801) [id number] 02:07:00 Test Item Value Reference Range Interpretation Comments RPR SCREEN (BEAKER) (test code = Nonreactive Nonreactive 420) HEPATIC FUNCTION [id number] 22:17:00 Test Item Value Reference Range Interpretation Comments TOTAL PROTEIN (BEAKER) (test code = 6.4 gm/dL 6.0-8.3 770) ALBUMIN (BEAKER) (test code = 1145) 4.2 g/dL 3.5-5.0 BILIRUBIN TOTAL (BEAKER) (test code 0.8 mg/dL 0.2-1.2 = 377) BILIRUBIN DIRECT (BEAKER) (test 0.4 mg/dL 0.1-0.5 code = 706) ALKALINE PHOSPHATASE (BEAKER) (test 52 U/L 40-150 code = 346) AST (SGOT) (BEAKER) (test code = 27 U/L 5-34 353) ALT (SGPT) (BEAKER) (test code = 19 U/L 6-55 347) CT, CTANGIO [id number] 21:00:00FINAL REPORT CTA carotids and brain 01/31/2018 [...] posterior hemispheric intraparenchymal hematoma with associated small vol ume intraventricular and subarachnoid hemorrhage and resultant mild obstructive hydrocephalus.2. No evident aneurysm or arteriovenous malformation.3. Mild intracranialAtherosclerotic vascular disease.4. Spondylosis. Signed: Salas Wiseman MDReport Verified Date/Time: 01/31/2018 21:00:54 Reading Location: [facility] Radiology Reading Room CT, CAROTID, [id number] 21:00:00FINAL REPORT CTA carotids and brain 01/31/2018 [...] cervical internal carotid artery stenosis (NASCET criteria). Intr acranially, there is mild stenosis in both carotid [...] hemorrhage and resultant mild obstructive hydrocephalus.2. No e vident aneurysm or arteriovenous malformation.3. Mild intracranialAtherosclerotic vascular disease.4. Spondylosis. Signed: Salas Wisemanort Verified Date/Time: 01/31/2018 21:00:54 Reading Location: [facility] Radiology Reading Room TSH/FREE T4 IF [id number] 20:05:00 Test Item Value Reference Range Interpretation Comments THYROID STIMULATING HORMONE 2.07 uIU/mL 0.35-4.94 (BEAKER) (test code = 772) VITAMIN B12 AND [id number] 20:05:00 Test Item Value Reference Range Interpretation Comments VITAMIN B12 (BEAKER) (test code = 340 pg/mL 213-816 774) FOLATE (BEAKER) (test code = 362) 11.0 ng/mL >=7.0 PROTHROMBIN [id number] 19:56:00 Test Item Value Reference Range Interpretation Comments PROTIME (BEAKER) (test code = 14.1 seconds 11.7-14.7 759) INR (BEAKER) (test code = 370) 1.1 <=5.9 RECOMMENDED COUMADIN/WARFARIN INR THERAPY RANGESSTANDARD DOSE: 2.0 - 3.0 Includes: PROPHYLAXIS forvenous thrombosis, systemic embolization; TREATMENT for venous thrombosis and/or pulmonary embolus.HIGH RISK: Target INR is 2.5-3.5 for patients with mechanical heart valves.[id number] 19:56:00 Test Item Value Reference Range Interpretation Comments PARTIAL THROMBOPLASTIN TIME 31.5 seconds 22.5-36.0 (BEAKER) (test code = 760) CBC W/PLT COUNT & AUTO [id number] 19:45:00 Test Item Value Reference Range Interpretation Comments WHITE BLOOD CELL COUNT (BEAKER) 10.6 K/ L 3.5-10.5 H (test code = 775) RED BLOOD CELL COUNT (BEAKER) 5.29 M/ L 4.63-6.08 (test code = 761) HEMOGLOBIN (BEAKER) (test code = 17.1 GM/DL 13.7-17.5 410) HEMATOCRIT (BEAKER) (test code = 50.0 % 40.1-51.0 411) MEAN CORPUSCULAR VOLUME (BEAKER) 94.5 fL 79.0-92.2 H (test code = 753) MEAN CORPUSCULAR HEMOGLOBIN 32.3 pg 25.7-32.2 H (BEAKER) (test code = 751) MEAN CORPUSCULAR HEMOGLOBIN CONC 34.2 GM/DL 32.3-36.5 (BEAKER) (test code = 752) RED CELL DISTRIBUTION WIDTH 13.3 % 11.6-14.4 (BEAKER) (test code = 412) PLATELET COUNT (BEAKER) (test code 83 K/CU MM 150-450 L = 756) MEAN PLATELET VOLUME (BEAKER) 11.9 fL 9.4-12.4 (test code = 754) NUCLEATED RED BLOOD CELLS (BEAKER) 0 /100 WBC 0-0 (test code = 413) NEUTROPHILS RELATIVE PERCENT 79 % (BEAKER) (test code = 429) LYMPHOCYTES RELATIVE PERCENT 13 % (BEAKER) (test code = 430) MONOCYTES RELATIVE PERCENT 8 % (BEAKER) (test code = 431) EOSINOPHILS RELATIVE PERCENT 0 % (BEAKER) (test code = 432) BASOPHILS RELATIVE PERCENT 0 % (BEAKER) (test code = 437) NEUTROPHILS ABSOLUTE COUNT 8.32 K/ L 1.78-5.38 H (BEAKER) (test code = 670) LYMPHOCYTES ABSOLUTE COUNT 1.38 K/ L 1.32-3.57 (BEAKER) (test code = 414) MONOCYTES ABSOLUTE COUNT (BEAKER) 0.83 K/ L 0.30-0.82 H (test code = 415) EOSINOPHILS ABSOLUTE COUNT 0.00 K/ L 0.04-0.54 L (BEAKER) (test code = 416) BASOPHILS ABSOLUTE COUNT (BEAKER) 0.04 K/ L 0.01-0.08 (test code = 417) IMMATURE GRANULOCYTES-RELATIVE 0 % 0-1 PERCENT (BEAKER) (test code = 2801) COMPREHENSIVE METABOLIC [id number] 19:30:00 Test Item Value Reference Range Interpretation Comments TOTAL PROTEIN 6.6 gm/dL 6.0-8.3 Specimen sligh tly (BEAKER) (test code = hemoly zed 770) ALBUMIN (BEAKER) 4.3 g/dL 3.5-5.0 Specimen sl ightly (test code = 1145) hemolyzed ALKALINE PHOSPHATASE 58 U/L 40-150 (BEAKER) (test code = 346) BILIRUBIN TOTAL 1.1 mg/dL 0.2-1.2 Specimen sli ghtly (BEAKER) (test code = hemoly zed 377) SODIUM (BEAKER) (test 138 meq/L 136-145 code = 381) POTASSIUM (BEAKER) 3.3 meq/L 3.5-5.1 L Specimen slightly (test code = 379) hemolyzed CHLORIDE (BEAKER) 106 meq/L 98-107 (test code = 382) CO2 (BEAKER) (test 18 meq/L 22-29 L code = 355) BLOOD UREA NITROGEN 12 mg/dL 7-21 (BEAKER) (test code = 354) CREATININE (BEAKER) 0.85 mg/dL 0.57-1.25 Specimen slightly (test code = 358) hemolyzed GLUCOSE RANDOM 131 mg/dL 70-105 H (BEAKER) (test code = 652) CALCIUM (BEAKER) 9.1 mg/dL 8.4-10.2 (test code = 697) AST (SGOT) (BEAKER) 35 U/L 5-34 H Specimen slightly (test code = 353) hemolyzed ALT (SGPT) (BEAKER) 21 U/L 6-55 Specimen slightly (test code = 347) hemolyzed EGFR (BEAKER) (test 90 mL/min/1.73 ESTIMA BALJEET GFR IS code = 1092) sq m NOT ACCURATE CREATININE CLEARANCE IN PREDICTING GLOMERULAR FILTRATION RATE . ESTIMATED GFR I S NOT APPLICABLE FOR DIALYSIS PATIEN TS. [id number] 19:30:00 Test Item Value Reference Range Interpretation Comments MAGNESIUM (BEAKER) 1.6 mg/dL 1.6-2.6 Specimen slightly (test code = 627) hemolyzed LIPID [id number] 19:30:00 Test Item Value Reference Range Interpretation Comments TRIGLYCERIDES (BEAKER) 85 mg/dL Speci men slightly (test code = 540) hemolyzed CHOLESTEROL (BEAKER) 174 mg/dL Specime n slightly (test code = 631) hemolyzed HDL CHOLESTEROL (BEAKER) 56 mg/dL (test code = 976) LDL CHOLESTEROL 101 mg/dL CALCULATED (BEAKER) (test code = 633) Triglyceride Reference Range: Low Risk <150 Borderline 150-199 High Risk 200-499 Very High Risk >=500Cholesterol Reference Range: Low Risk <200 Borderline 200-239 High Risk >240HDL Cholesterol Reference Range: Low Risk >=60 High Risk <40LDL Cholesterol Reference Range: Optimal <100 Near Optimal 100-129 Borderline 130-159 High 160-189 Very High >=190BLOOD GAS, [id number] 19:28:00 Test Item Value Reference Range Interpretation Comments PH ARTERIAL (BEAKER) (test code = 7.42 7.35-7.45 383) PCO2 ARTERIAL (BEAKER) (test code 33 mmHg 35-45 L = 384) PO2 ARTERIAL (BEAKER) (test code 183 mmHg 80-90 H = 385) O2 SATURATION ARTERIAL (BEAKER) 99.3 % 96.0-97.0 H (test code = 386) HCO3 ARTERIAL (BEAKER) (test code 21 mmol/L 21-29 = 388) BASE EXCESS ARTERIAL (BEAKER) -2.4 mmol/L -2.0-3.0 L (test code = 387) PATIENT TEMPERATURE (BEAKER) 37.0 C (test code = 1818) RAD, CHEST, 1 VIEW, NON [id number] 17:49:00Post-intubationReason for exam:- >post intubationShould this be performed at the bedside?->YesFINAL [...] No acute osseous abnormality is identified. Signed: iRley Xavierort Verified Date/Time: 01/31/2018 17:49:49 Reading Location: [place] [id number] Consult Reading Room
--- NOTE | 2021-05-22 09:51 | EDPHYS ---
Physician Documentation [facility] Name: Edmund Caballero Age: 70 yrs Sex: Male : 1950 Arrival Date: 05/22/2021 Time: 09:14 Bed 17 Private MD: ED Physician Kristian Yusuf HPI: 05/22 09:46 This 70 yrs old Male presents to ER via Ambulatory with complaints of Facial kb Swelling. 09:46 The patient presents with localized swelling, redness of skin. Onset: The kb symptoms/episode began/occurred 2 day(s) ago. Associated signs and symptoms: Pertinent positives: swelling. Possible causes: At home the patient or guardian has treated the symptoms with nothing. Severity of symptoms: At their worst the symptoms were moderate in the emergency department the symptoms are unchanged. The patient has not experienced similar symptoms in the past. The patient has not recently seen a physician. Pt reports swelling around eyes that started the day after cleaning up around the house and outside. . Historical: - Allergies: 09:26 NKA; jl7 - PMHx: 09:26 CVA; Cognitive, behavioral deficits; Hypertension; High cholesterol; jl7 - Immunization history:: Client reports receiving the 2nd dose of the Covid vaccine. - Social history:: Smoking status: Patient reports the use of cigarette tobacco products. ROS: 09:42 Constitutional: Negative for fever, chills, and weight loss. kb 09:42 Skin: Positive for erythema, rash, swelling, of the right arm and left arm. 09:42 All other systems are negative. Exam: 09:42 Constitutional: This is a well developed, well nourished patient who is awake, alert, kb and in no acute distress. Head/Face: Normocephalic, atraumatic. ENT: Moist Mucous membranes Respiratory: Respirations even and unlabored. No increased work of breathing, no retractions or nasal flaring. MS/ Extremity: Pulses equal, no cyanosis. Neurovascular intact. Full, normal range of motion. Neuro: Awake and alert, GCS 15, oriented to person, place, time, and situation. Moves all extremities. Normal gait. Psych: Awake, alert. Behavior, mood, and affect are within normal limits. 09:42 Skin: Appearance: normal except for affected area, Color: erythematous, Temperature: normal temperature, swelling, noted on the left lower eyelid and right lower eyelid, that are moderate, consistent with contact dermatitis, on the right arm and left arm. Vital Signs: 09:25 BP 172 / 89; Pulse 75; Resp 17; Temp 98.7; Pulse Ox 100% ; Pain 0/10; jl7 MDM: 09:29 Patient medically screened. kb 09:42 Data reviewed: vital signs, nurses notes. Data interpreted: Pulse oximetry: on room air kb is 100 %. Interpretation: normal. Counseling: I had a detailed discussion with the patient and/or guardian regarding: the historical points, exam findings, and any diagnostic results supporting the discharge/admit diagnosis, the need for outpatient follow up, a family practitioner, to return to the emergency department if symptoms worsen or persist or if there are any questions or concerns that arise at home. Administered Medications: 09:51 Drug: predniSONE 40 mg Route: PO; jl7 10:09 Follow up: Response: No adverse reaction bp 09:51 Drug: Pepcid (famotidine) 20 mg Route: PO; jl7 10:10 Follow up: Response: No adverse reaction bp Disposition: 13:25 Co-signature as Attending Physician, Kristian Yusuf MD I agree with the assessment and abhilash plan of care. Disposition Summary: 05/22/21 09:50 Discharge Ordered Location: Home kb Condition: Stable kb Diagnosis - Allergic contact dermatitis, unspecified cause kb Followup: kb - With: Emergency Department - When: As needed - Reason: Worsening of condition Followup: kb - With: Private Physician - When: 2 - 3 days - Reason: Recheck today's complaints, Continuance of care, Re-evaluation by your physician Discharge Instructions: - Discharge Summary Sheet kb - Contact Dermatitis, [id number] kb Forms: - Medication Reconciliation Form kb - Thank You Letter kb - Antibiotic Education kb - Prescription Opioid Use kb Prescriptions: - Pepcid 20 mg Oral Tablet - take 1 tablet by ORAL route every 12 hours for 5 days; 10 tablet; Refills: 0, kb Product Selection Permitted - Prednisone 20 mg Oral Tablet - take 1 tablet by ORAL route once daily for 5 days; 5 tablet; Refills: 0, kb Product Selection Permitted Signatures: Viridiana Bustamante, HALEYC EMMY-Kristian Johnston MD MD cha Leal, Jahala, RN RN jl7 Javid Harris RN bp Corrections: (The following items were deleted from the chart) 09:50 09:42 Skin: Appearance: normal except for affected area, Color: erythematous, kb Temperature: normal temperature, swelling, noted on the left lower eyelid and right lower eyelid, that are moderate, kb 09:51 09:42 Skin: Positive for erythema, swelling, of the right lower eyelid and left lower kb eyelid, kb
--- NOTE | 2021-05-22 09:51 | ER ---
Nurse's Notes [facility] Name: Edmund Caballero Age: 70 yrs Sex: Male : 1950 Arrival Date: 05/22/2021 Time: 09:14 Bed 17 Private MD: Diagnosis: Allergic contact dermatitis, unspecified cause Presentation: 05/22 09:25 Chief complaint: Patient states: Working in the yard a few days ago and now there's jl7 swelling to bilateral eyes. Coronavirus screen: Client denies travel out of the [place] in the last 14 days. At this time, the client does not indicate any symptoms associated with coronavirus-19. Ebola Screen: No symptoms or risks identified at this time. Initial Sepsis Screen: Does the patient meet any 2 criteria? No. Patient's initial sepsis screen is negative. Does the patient have a suspected source of infection? No. Patient's initial sepsis screen is negative. Risk Assessment: Do you want to hurt yourself or someone else? Patient reports no desire to harm self or others. Onset of symptoms was May 19, 2021. Care prior to arrival: None. 09:25 Method Of Arrival: Ambulatory [facility] 09:25 Acuity: KIRK 4 jl7 Triage Assessment: 09:30 General: Appears in no apparent distress. uncomfortable, Behavior is cooperative, bp appropriate for age, anxious. Pain: Denies pain. EENT: Eyes ABILIO-ORBITAL EDEMA. Neuro: Level of Consciousness is awake, alert, obeys commands, Oriented to AT BASELINE 2/2 PREVIOUS CVA. Cardiovascular: No deficits noted. Respiratory: Airway is patent Respiratory effort is even, unlabored. GI: No signs and/or symptoms were reported involving the gastrointestinal system. : No signs and/or symptoms were reported regarding the genitourinary system. Derm: Rash noted that is urticaria. Musculoskeletal: No deficits noted. Historical: - Allergies: 09:26 NKA; jl7 - PMHx: 09:26 CVA; Cognitive, behavioral deficits; Hypertension; High cholesterol; jl7 - Immunization history:: Client reports receiving the 2nd dose of the Covid vaccine. - Social history:: Smoking status: Patient reports the use of cigarette tobacco products. Screenin:02 Abuse screen: Denies threats or abuse. Denies injuries from another. Nutritional bp screening: No deficits noted. Tuberculosis screening: No symptoms or risk factors identified. Fall Risk None identified. 10:06 Abuse screen: Denies threats or abuse. Nutritional screening: No deficits noted. vg1 Tuberculosis screening: No symptoms or risk factors identified. Fall Risk None identified. Assessment: 09:30 General: SEE TRIAGE NOTE. bp 10:08 Reassessment: PT D/C HOME AMBULATORY WITH FAMILY, DX WITH ALLERGIC DERMATITIS. bp Vital Signs: 09:25 BP 172 / 89; Pulse 75; Resp 17; Temp 98.7; Pulse Ox 100% ; Pain 0/10; jl7 ED Course: 09:14 Patient arrived in ED. rg4 09:26 Triage completed. jl7 09:26 Arm band placed on right wrist. jl7 09:29 Viridiana Bustamante FNP-C [facility]. kb 09:29 Kristian Yusuf MD is Attending Physician. kb 09:31 Javid Harris, RN is Primary Nurse. bp 10:06 Patient has correct armband on for positive identification. Bed in low position. Adult vg1 w/ patient. 10:06 No provider procedures requiring assistance completed. Patient did not have IV access vg1 during this emergency room visit. Administered Medications: 09:51 Drug: predniSONE 40 mg Route: PO; jl7 10:09 Follow up: Response: No adverse reaction bp 09:51 Drug: Pepcid (famotidine) 20 mg Route: PO; jl7 10:10 Follow up: Response: No adverse reaction bp Outcome: 09:50 Discharge ordered by . kb 10:06 Discharged to home ambulatory, with family. vg1 10:06 Condition: stable 10:06 Discharge instructions given to patient, Instructed on discharge instructions, follow up and referral plans. medication usage, Demonstrated understanding of instructions, follow-up care, medications, Prescriptions given X 2. 10:07 Patient left the ED. vg1 Signatures: Viridiana Bustamante FNP-C FNP-Ckb Garcia, Rubi 4 Giovanny Enriquez RN RN jl7 Javid Harris, RN Marbella Block RN RN vg1
[2021-05-22] MEDS ORDERED: predniSONE 20 MG TAB ONE (10:10)
[2021-05-22] MEDS ORDERED: FAMOTIDINE 20 MG TAB ONE (10:10)
[2021-05-22 10:17] VITALS: BP 172/89; TEMP 98.7; O2SAT 100
== END 2021-05-22 10:07 | disposition home or self-care (01) ==
LOC: ER 09:11
DX: L23.9 Allergic contact dermatitis, unspecified cause (principal); I10 Essential (primary) hypertension; Z72.0 Tobacco use
CPT/HCPCS: 99283; J7512

== ENCOUNTER 2021-07-22 19:54 | Emergency (ER) | payer OTHER ==
--- OUTSIDE RECORDS SUMMARY | 2021-07-22 20:00 | XMS REPORT | Continuity of Care Document ---
:1950 Author Organization [facility] t Address [address] Ferrer[address] [place] [address] Care Team Providers Name Role Phone Lu BROWN Primary Care Physician Karla BROWN Attending Clinician Roger Leigh MD Attending Clinician Terrance Ozuna LVN Attending Clinician Unavailable Jamaal Robertson DO Attending Clinician Otilia OCONNELL Attending Clinician Unavailable Milo BROWN Attending Clinician SADAF MORENO Attending Clinician Unavailable SADAF MORENO Admitting Clinician Unavailable Payers Payer Name Policy Type Policy Number Effective Date Expiration Date S ource Problems Condition Condition Condition Status Onset Resolution Last Treating Co mments Source Name Details Category Date Date Treatment Clinician Date Altered Altered Disease Active 2017-11 [facility] mental mental 2-02 st status status 00:00: Hospita 00 l Essential Essential Disease Active [facility] hypertensi hypertensi 3-27 Mei kes - on on 00:00: Medical 00 Center Aspiration Aspiration Disease Active [facility] pneumonia pneumonia 3-27 [facility] - 00[facility] 00 Center Metabolic Metabolic Disease Active [facility] encephalop encephalop 3-27 Mei kes - athy athy 00:00: Medical 00 Center Oropharyng Oropharyng Disease Active [facility] eal eal 3-27 [facility] - dysphagia dysphagia 00:00: Medi luanne 00 Center ICH ICH Disease Active [facility] (intracere (intracere 3-16 Mei kes - bral bral 00:00: Medical hemorrhage hemorrhage 00 Ce nter ) ) Allergies, Adverse Reactions, Alerts This patient has no known allergies or adverse reactions. Social History Social Habit Start Date Stop Date Quantity Comments Source Sex Assigned At [facility] History SDMI [facility] Alcohol Binge Hospital History SDMI [facility] Alcohol Std Drinks Hospit al Tobacco use and 2020-01-11 2020-01-11 Never used [facility] exposure 00:00:00 00:00:00 Hospital Alcohol intake 2020-01-11 2020-01-11 Current [facility] 00:00:00 00:00:00 non-drinker of Hospital alcohol (finding) History SDOH 2020-01-11 2020-01-11 1 [facility] Alcohol Frequency 00:00:00 00:00:00 Hospita l Smoking Status Start Date Stop Date Source Never smoker [facility] Medications Ordered Filled Start Stop Current Ordering Indication Dosage Frequency Signature Comments Components Source Medication Medication Date Date Medication? Clinician (SIG) Name Name gabapentin Yes [id number] TAKE ONE [facility] (NEURONTIN) 8-30 (1) st 300 mg 00:00: CAPSULE(S) Hospi ta capsule 00 BY MOUTH l TWICE A DAY. memantine 2021- No [id number] 5mg Q.5D Take 1 [facility] (Namenda) 5 2-25 02-26 9104 tablet (5 st MG tablet 00:00: 05:59 mg total) Ho spita 00 :00 by mouth 2 l (two) times a day. gabapentin 2020- No [id number] 300mg Q.5D Take 1 [facility] (NEURONTIN) 2- 08-[address] 300 mg 00:00: 00:00 (300 mg Hospita capsule 00 :00 total) by l mouth 2 (two) times a day. gabapentin No [id number] 300mg Q.5D Take 1 [facility] (NEURONTIN) 8-12 02-[address] 300 mg 00:00: 00:00 (300 mg Hospita capsule 00 :00 total) by l mouth 2 (two) times a day. memantine 2020- No [id number] 10mg Q.5D Take 1 [facility] (Namenda) 8-12 01-12 9104 tablet (10 st 10 MG 00:00: 00:00 mg total) Hospit a tablet 00 :00 by mouth 2 l (two) times a day. esomeprazol Yes 40mg QD Take 40 mg [facility] e (NexIUM) 2-[address] 40 MG 17:26: daily Hospita capsule 16 before l breakfast. lisinopril Yes 10mg QD Take 10 mg M [facility]i (PRINIVIL,Z 1-[address] ESTRIL) 5 21:33: daily. Hospit a mg tablet 05 Hold l sBP,110 or hr,60 metoprolol Yes Q12H [facility] tartrate 4-17 st (LOPRESSOR) 00:00: Hospit a 50 mg 00 l tablet atorvastati Yes 20mg QD Take [address] [facility] (LIPITOR) 3-30 by mouth Luke s - 20 MG 14:59: daily. Medical tablet 46 Center Procedures This patient has no known procedures. Plan of Care Planned Activity Planned Date Details Comments Source Future Scheduled Test Hepatitis C screening [facility] (procedure) [code = 910891266] Future Scheduled Test COLONOSCOPY SCREENING [facility] [code = COLONOSCOPY SCREENING] Future Scheduled Test SHINGLES VACCINES (#1) [facility] [code = SHINGLES VACCINES (#1)] Future Scheduled Test 65+ PNEUMOCOCCAL [facility] VACCINE (1 of 1 - PPSV23) [code = 65+ PNEUMOCOCCAL VACCINE (1 of 1 - PPSV23)] Future Scheduled Test INFLUENZA VACCINE [code [facility] = INFLUENZA VACCINE] Encounters Start End Encounter Admission Attending Care Care Encounter Source Date/Time Date/Time Type Type Clinicians Facility Department ID 2018-09-10 Inpatient [facility] [id number] H arris 07:02:05 [facility] 2018-09-09 Inpatient [facility] [id number] H arris 15:25:03 Health 2018-09-09 Inpatient [facility] [id number] H arris 11:35:38 Health 2018-09-08 Inpatient [facility] [id number] H arris 12:53:31 [facility] 2018-09-07 Inpatient [facility] [id number] H arris 09:44:00 [facility] 2021-07-17 2021-07-17 Refill Etelvina Solano 1.2.840.1 [id number] [facility] 00:00:00 00:00:[address] 3.430.2.7 Hospit a .3.356946 l .8 2021-05-10 2021-05-10 Refill [facility] 1.2.840.114 [id number] 00:00:00 00:00:00 [facility] [id number] [facility] [place] [id number] Professio [phone] nal [address] One 2021-02-23 2021-02-23 Refill [facility] 1.2.840.114 [id number] 00:00:00 00:00:00 [facility] [id number] [place] [id number] Professio [phone] nal 0[address] One 2021-02-10 2021-02-10 Patient NISHI Ozuna 1.2.840.114 [id number] 00:00:00 00:00:00 Secure Msg Wilver Carlos Y [id number] [facility] [id number] [facility] [phone] BLDG. 144 2021-01-12 2021-01-12 Telemedici Etelvina Solano 1.2.840.1 [id number] [facility] 10:11:17 10:31:[address] 3.430.2.7 Hospit a .3.136809 l .8 2021-01-12 2021-01-12 Outpatient DARLINGETELVINA GODFREY [facility] [id number] [place] 00:00:00 00:00:[address] 2020-12-09 2020-12-09 [facility] 1.2.840.114 [id number] 00:00:00 00:00:00 [facility] [id number] [facility] [place] [id number] Professio [phone] nal 0[address] One 2020-12-07 2020-12-07 Patient Marcelo [facility] 1.2.840.114 [id number] 00:00:00 00:00:00 Outreach [facility] [id number] [facility] 4.2.7.2.686 JOB [id number] 2020-11-25 2020-11-25 Refill Lu [facility] 1.2.840.114 [id number] 00:00:00 00:00:00 [facility] [id number] [facility] [place] [id number] Professio [phone] nal 0[address] One 2020-11-21 2020-11-21 Telephone Otilia, 1.2.840.1 [id number] [facility] 00:00:00 00:00:[address] 3.430.2.7 Hospit a .3.184219 l .8 2020-08-30 2020-08-30 [facility] 1.2.840.114 [id number] 00:00:00 00:00:00 [facility] [id number] [facility] [place] [id number] Professio [phone] nal [facility] Office Building One 2020-06-29 2020-06-29 Outpatient ETELVINA SOLANO [facility] [id number] [place] 00:00:00 00:00:[address] 2020-06-09 2020-06-09 Refill Lu [facility] 1.2.840.114 [id number] 00:00:00 00:00:00 [facility] [id number] [facility] [place] [id number] Professio [phone] nal [facility] One 2020-05-09 2020-05-09 [facility] 1.2.840.114 [id number] 00:00:00 00:00:00 [facility] [id number] [facility] [place] [id number] Professio [phone] nal [facility] One 2020-05-05 2020-05-05 Outpatient [facility] [id number] [address] [place] [address] 00:00:00 00:00:[address] 2020-04-04 2020-04-04 Telemedici Lu [facility] 1.2.840.114 [id number] 09:45:08 10:00:08 ne Visit Conrado Dumont [id number] [place] 4.2.7.2.686 Professio [phone] [address] 2020-03-25 2020-03-25 [facility] 1.2.840.114 [id number] 00:00:00 00:00:00 Outreach Conrado Dumont [id number] [place] 4.2.7.2.686 Professio [phone] [address] 2020-03-22 2020-03-22 Outpatient ETELVINA SOLANO [facility] [id number] [place] 00:00:00 00:00:[address] 2020-03-21 2020-03-21 Patient Lu [facility] 1.2.840.114 [id number] 00:00:00 00:00:00 Secure Msg Conrado [id number] [facility] [id number] Professio [phone] [place] [address] [address] One 2020-03-21 2020-03-21 Telephone Lu [facility] 1.2.840.114 [id number] 00:00:00 00:00:00 Conrado Diana [id number] [facility] [id number] Professio [phone] [place] [address] Office Building [facility] 2020-02-26 2020-02-26 Patient Milo [facility] 1.2.840.114 [id number] 00:00:00 00:00:00 Secure Msg Cj LEUNG [id number] [place] [phone] [facility] 2018-09-10 2018-09-10 Outpatient [facility] [id number] [address] [place] [id number] 00:00:00 00:00:00 [facility] 2018-09-08 2018-09-08 Outpatient [facility] [id number] [address] [place] [address] 00:00:00 00:00:00 Health 2018-09-05 2018-09-05 Outpatient [facility] [id number] [place] 10:26:16 10:26:16 Health 2018-09-05 2018-09-05 Outpatient [facility] [id number] [place] 03:02:32 03:02:32 Health 2018-09-04 2018-09-04 Emergency [facility] [id number] [place] 19:36:56 19:36:56 Health 2018-09-04 2018-09-04 Inpatient [facility] [id number] [place] 15:51:37 15:51:37 Health Results Test Description Test Time Test Comments Results Result Comments Source MAGNESIUM 2018-02-14 06:17:00 Test Item Value Reference Range Interpretation Comme nts MAGNESIUM (BEAKER) (test code = 627) 2.0 mg/dL 1.6-2.6 BASIC METABOLIC [id number] 06:17:00 Test Item Value Reference Range Interpretation [...] PATIEN TS. CBC W/PLT COUNT & AUTO [id number] 05:34:00 Test Item Value Reference Range Interpretation [...] PERCENT (BEAKER) (test code = 2801) POCT-GLUCOSE [id number] 05:21:00 Test Item Value Reference Range Interpretation Comments POC-GLUCOSE METER 105 mg/dL 70-110 TESTED AT [facility] 6720 (BEAKER) (test code = CRISTINE ALONZO 1538) 42885 POCT-GLUCOSE [id number] 01:28:00 Test Item Value Reference Range Interpretation Comments POC-GLUCOSE METER 108 mg/dL 70-110 TESTED AT [facility] 6720 (BEAKER) (test code = CRISTINE [place] 1538) [address]38[address] [id number] 05:19:00 Test Item Value Reference Range Interpretation Comments MAGNESIUM (BEAKER) (test code = 1.8 mg/dL 1.6-2.6 627) BASIC METABOLIC [id number] 05:19:00 Test Item Value Reference Range Interpretation [...] PATIEN TS. CBC W/PLT COUNT & AUTO [id number] 04:56:00 Test Item Value Reference Range Interpretation [...] PERCENT (BEAKER) (test code = 2801) POCT-GLUCOSE [id number] 00:15:00 Test Item Value Reference Range Interpretation Comments POC-GLUCOSE METER 104 mg/dL 70-110 TESTED AT [facility] 6720 ([facility]) (test code = CRISTINE ALONZO 1538) 04375 BLOOD [id number] 11:00:00 Test Item Value Reference Range Interpretation Comments CULTURE (BEAKER) (test No growth in 5 days code = 1095) BLOOD [id number] 11:00:00 Test Item Value Reference Range Interpretation Comments CULTURE (BEAKER) (test No growth in 5 days code = 1095) [id number] 06:39:00 Test Item Value Reference Range Interpretation Comments MAGNESIUM (BEAKER) 2.2 mg/dL 1.6-2.6 Specimen slightly (test code = 627) hemolyzed BASIC METABOLIC [id number] 06:39:00 Test Item Value Reference Range Interpretation [...] PATIEN TS. CBC W/PLT COUNT & AUTO [id number] 06:02:00 Test Item Value Reference Range Interpretation [...] FL, ESOPH, SWALLOW FUNCTION, WITH CINE OR [id number] 13:56:00Reason for exam:->dysphagiaFINAL REPORT INDICATION: Dysphagia. TECHNIQUE: [...] MDReport Verified Date/Time: 02/11/2018 13:56:12 Reading Location: [facility] C013X Ortho Consult Reading Room POCT-GLUCOSE [id number] 06:21:00 Test Item Value Reference Range Interpretation Comments POC-GLUCOSE METER 119 mg/dL 70-110 H TESTED AT [facility] 6720 (BEAKER) (test code = CRISTINE [place] 1538) 279[address] [id number] 05:33:00 Test Item Value Reference Range Interpretation Comments MAGNESIUM (BEAKER) (test code = 1.7 mg/dL 1.6-2.6 627) BASIC METABOLIC [id number] 05:33:00 Test Item Value Reference Range Interpretation [...] PATIEN TS. CBC W/PLT COUNT & AUTO [id number] 05:14:00 Test Item Value Reference Range Interpretation [...] PERCENT (BEAKER) (test code = 2801) POCT-GLUCOSE [id number] 23:54:00 Test Item Value Reference Range Interpretation Comments POC-GLUCOSE METER 125 mg/dL 70-110 H TESTED AT [facility] 6720 (BEAKER) (test code = CRISTINE Siddiqi [facility] 1538) 27108 POCT-GLUCOSE [id number] 18:08:00 Test Item Value Reference Range Interpretation Comments POC-GLUCOSE METER 106 mg/dL 70-110 TESTED AT [place] [address] (BEAKER) (test code = CRISTINE Siddiqi [facility] 1538) 39898 POCT-GLUCOSE [id number] 13:26:00 Test Item Value Reference Range Interpretation Comments POC-GLUCOSE METER 122 mg/dL 70-110 H [facility] [place] [address] [facility] (test code = [facility] [place] [facility] 1538) 98597 POCT-GLUCOSE [id number] 06:11:00 Test Item Value Reference Range Interpretation Comments POC-GLUCOSE METER 121 mg/dL 70-110 H TESTED AT [place] [address] ([facility]) (test code = [facility] 1538) [address]001 VANCOMYCIN LEVEL, [id number] 02:13:00 Test Item Value Reference Range Interpretation Comments VANCOMYCIN TROUGH (BEAKER) (test 7.7 ug/mL 10.0-20.0 L code = 522) [id number] 02:00:00 Test Item Value Reference Range Interpretation Comments MAGNESIUM (BEAKER) (test code = 1.7 mg/dL 1.6-2.6 627) BASIC METABOLIC [id number] 02:00:00 Test Item Value Reference Range Interpretation [...] PATIEN TS. CBC W/PLT COUNT & AUTO [id number] 01:46:00 Test Item Value Reference Range Interpretation [...] ABSOLUTE COUNT 1.12 K/ L 1.32-3.57 L (BEAKER) (test code = 414) MONOCYTES ABSOLUTE COUNT (BEAKER) 1.03 K/ L 0.30-0.82 H (test code = 415) EOSINOPHILS ABSOLUTE COUNT 0.00 K/ L 0.04-0.54 L ([facility]) (test code = 416) BASOPHILS ABSOLUTE COUNT ([facility]) 0.04 K/ L 0.01-0.08 (test code = 417) IMMATURE GRANULOCYTES-RELATIVE 1 % 0-1 PERCENT ([facility]) (test code = 2801) POCT-GLUCOSE [id number] 00:38:00 Test Item Value Reference Range Interpretation Comments POC-GLUCOSE METER 116 mg/dL 70-110 H TESTED AT [place] [address] ([facility]) (test code = CRISITNE Siddiqi [facility] 1538) 79742 POCT-GLUCOSE [id number] 18:06:00 Test Item Value Reference Range Interpretation Comments POC-GLUCOSE METER 118 mg/dL 70-110 H TESTED AT [place] [address] ([facility]) (test code = [facility] [place] [facility] 1538) [address]33 POCT-GLUCOSE [id number] 12:07:00 Test Item Value Reference Range Interpretation Comments POC-GLUCOSE METER 126 mg/dL 70-110 H TESTED AT [place] [address] ([facility]) (test code = [facility] 1538) 11463 URINE [id number] 10:54:00 Test Item Value Reference Range Interpretation Comments CULTURE ([facility]) (test CITROBACTER A >100, 000 col/mL code = 1095) WERKMANNI Citrobacter werbinanni Amikacin (test code = S 1) Aztreonam [...] = 47) CBC W/PLT COUNT & AUTO [id number] 10:20:00 Test Item Value Reference Range Interpretation Comments WHITE BLOOD CELL COUNT ([facility]) 10.1 K/ L 3.5-10.5 (test code = [...] 0-1 PERCENT (BEAKER) (test code = 2801) [id number] 09:52:00 Test Item Value Reference Range Interpretation Comments MAGNESIUM (BEAKER) (test code = 1.6 mg/dL 1.6-2.6 627) BASIC METABOLIC [id number] 09:52:00 Test Item Value Reference Range Interpretation [...] NOT APPLICABLE FOR DIALYSIS PATIEN TS. POCT-GLUCOSE [id number] 06:02:00 Test Item Value Reference Range Interpretation Comments POC-GLUCOSE METER 117 mg/dL 70-110 H TESTED AT [facility] 6720 ([facility]) (test code = CRISTINE [place] 153) [address] SPUTUM CULTURE + GRAM [id number] 13:31:00 Test Item Value Reference Interpretation Comments Range CULTURE ([facility]) STAPHYLOCOCCUS A 3+ Staphy lococcus (test code [...] Vancomycin (test code S = 13) CULTURE ([facility]) A 4+ Haemophi iveth (test code = 1095) influenza eBeta-lac tamase negative GRAM STAIN RESULT 4+ WBCs (BEAKER) (test code = 1123) GRAM STAIN RESULT 0-5 epithelial (BEAKER) (test code = cells 826160) GRAM STAIN RESULT 4+ gram negative (BEAKER) (test code = coccobacilli 575848) GRAM STAIN RESULT 4+ gram positive (BEAKER) (test code = cocci in chains, 626715) pairs and clusters 3+ Normal respiratory carla presentPOCT-GLUCOSE [id number] 12:11:00 Test Item Value Reference Range Interpretation Comments POC-GLUCOSE METER 130 mg/dL 70-110 H TESTED AT [facility] 6720 (BEAKER) (test code = CRISTINE Siddiqi [place] 1538) [address] CBC W/PLT COUNT & AUTO [id number] 11:19:00 Test Item Value Reference Range Interpretation [...] 762) LARGE PLT(BEAKER) (test code = Present 2156) VANCOMYCIN LEVEL, [id number] 10:54:00 Test Item Value Reference Range Interpretation Comments VANCOMYCIN TROUGH (BEAKER) (test 4.9 ug/mL 10.0-20.0 L code = 522) [id number] 05:55:00 Test Item Value Reference Range Interpretation Comments MAGNESIUM (BEAKER) 2.1 mg/dL 1.6-2.6 Specimen slightly (test code = 627) hemolyzed BASIC METABOLIC [id number] 05:55:00 Test Item Value Reference Range Interpretation Comments SODIUM (BEAKER) 150 meq/L 136-145 H (test code = 381) POTASSIUM (BEAKER) 3.7 meq/L 3.5-5.1 Specimen slightly (test code = 379) hemolyzed CHLORIDE (BEAKER) 120 meq/L 98-107 H (test code = 382) CO2 (BEAKER) (test 18 meq/L 22-29 L code = 355) BLOOD UREA NITROGEN 28 mg/dL 7-21 H ([facility]) (test code = 354) CREATININE ([facility]) 0.95 mg/dL 0.57-1.25 Specimen slightly (test code = 358) hemolyzed GLUCOSE RANDOM 136 mg/dL 70-105 H ([facility]) (test code = 652) CALCIUM ([facility]) 9.6 mg/dL 8.4-10.2 (test code = 697) EGFR ([facility]) (test 79 mL/min/1.73 ESTIMA BALJEET GFR IS code = 1092) sq m NOT ACCURATE CREATININE CLEARANCE IN PREDICTING GLOMERULAR FILTRATION RATE . ESTIMATED GFR I S NOT APPLICABLE FOR DIALYSIS PATIEN TS. POCT-GLUCOSE [id number] 05:54:00 Test Item Value Reference Range Interpretation Comments POC-GLUCOSE METER 142 mg/dL 70-110 H TESTED AT [place] [address] ([facility]) (test code = [facility] 1538) 10953 POCT-GLUCOSE [id number] 01:01:00 Test Item Value Reference Range Interpretation Comments POC-GLUCOSE METER 128 mg/dL 70-110 H TESTED AT [place] [address] ([facility]) (test code = [facility] 1538) 83705 POCT-GLUCOSE [id number] 17:53:00 Test Item Value Reference Range Interpretation Comments POC-GLUCOSE METER 123 mg/dL 70-110 H TESTED AT [place] [address] ([facility]) (test code = [facility] 1538) 6[address] POCT-GLUCOSE [id number] 12:36:00 Test Item Value Reference Range Interpretation Comments POC-GLUCOSE METER 136 mg/dL 70-110 H TESTED AT [place] [address] ([facility]) (test code = [facility] 1538) 73620 CBC W/PLT COUNT & AUTO [id number] 11:39:00 Test Item Value Reference Range Interpretation Comments WHITE BLOOD CELL COUNT ([facility]) 14.1 K/ L 3.5-10.5 H (test code = 775) RED BLOOD CELL COUNT ([facility]) 4.59 M/ L 4.63-6.08 L (test code = 761) HEMOGLOBIN ([facility]) (test code = 14.7 GM/DL 13.7-17.5 410) HEMATOCRIT ([facility]) (test code = 43.4 % 40.1-51.0 411) [...] (BEAKER) (test code = Normal 762) POCT-GLUCOSE [id number] 07:00:00 Test Item Value Reference Range Interpretation Comments POC-GLUCOSE METER 101 mg/dL 70-110 TESTED AT [facility] 6720 (BEAKER) (test code = CRISTINE ALONZO 1538) [address]395 BASIC METABOLIC [id number] 06:30:00 Test Item Value Reference Range Interpretation [...] FOR DIALYSIS PATIEN TS. Specimen slightly ictericPROTHROMBIN TIME/[id number] 05:52:00 Test Item Value Reference Range Interpretation Comments PROTIME (BEAKER) (test code = 17.4 seconds 11.7-14.7 H 759) INR (BEAKER) (test code = 370) 1.4 <=5.9 RECOMMENDED COUMADIN/WARFARIN INR THERAPY RANGESSTANDARD DOSE: 2.0 - 3.0 Includes: PROPHYLAXIS forvenous thrombosis, systemic embolization; TREATMENT for venous thrombosis and/or pulmonary embolus.HIGH RISK: Target INR is 2.5-3.5 for patients with mechanical heart valves.[id number] 05:52:00 Test Item Value Reference Range Interpretation Comments PARTIAL THROMBOPLASTIN TIME 32.3 seconds 22.5-36.0 (BEAKER) (test code = 760) URINALYSIS W/ [id number] 00:07:00 Test Item Value Reference Range Interpretation [...] Rare SOURCE(BEAKER) (test code = 2795) POCT-GLUCOSE [id number] 23:07:00 Test Item Value Reference Range Interpretation Comments POC-GLUCOSE METER 109 mg/dL 70-110 TESTED AT [facility] 6720 (BEAKER) (test code = CRISTINE Siddiqi [facility] 1538) 36541 RAD, CHEST, 1 VIEW, NON [id number] 21:27:00Reason for exam:->fever, tachypnea, high risk of [...] MDReport Verified Date/Time: 02/06/2018 21:27:48 Reading Location: [facility] B1 C013Y CT Body Reading Room POCT-GLUCOSE [id number] 17:40:00 Test Item Value Reference Range Interpretation Comments POC-GLUCOSE METER 108 mg/dL 70-110 TESTED AT [place] [address] ([facility]) (test code = CRISTINE Siddiqi [facility] 1538) 70586 RAD, ABDOMEN/KUB, 1 VIEW [id number] 17:35:00Reason for exam:->check corpak placementFINAL REPORT AP abdomen HISTORY: Feeding tube COMPARISON: 02/04/2018 IMPRESSION:Feeding tube advanced, remaining along the greater curvature the stomach, not transpyloric. Signed:Christiano Granados Verified Date/Time: 02/06/2018 17:35:54 Reading Location: [facility] Mammo Reading Room POCT-GLUCOSE [id number] 11:47:00 Test Item Value Reference Range Interpretation Comments POC-GLUCOSE METER 108 mg/dL 70-110 TESTED AT [place] [address] ([facility]) (test code = CRISTINE Siddiqi [facility] 1538) [id number] 06:20:00 Test Item Value Reference Range Interpretation Comments PHOSPHORUS (BEAKER) (test code = 3.2 mg/dL 2.3-4.7 604) [id number] 06:20:00 Test Item Value Reference Range Interpretation Comments MAGNESIUM (BEAKER) (test code = 1.9 mg/dL 1.6-2.6 627) BASIC METABOLIC [id number] 06:20:00 Test Item Value Reference Range Interpretation [...] NOT APPLICABLE FOR DIALYSIS PATIEN TS. POCT-GLUCOSE [id number] 06:18:00 Test Item Value Reference Range Interpretation Comments POC-GLUCOSE METER 117 mg/dL 70-110 H TESTED AT [facility] 67[facility] ([facility]) (test code = CRISTINE [place] 1538) [id number] CBC W/PLT COUNT & AUTO [id number] 06:00:00 Test Item Value Reference Range Interpretation [...] PERCENT (BEAKER) (test code = 2801) POCT-GLUCOSE [id number] 00:52:00 Test Item Value Reference Range Interpretation Comments POC-GLUCOSE METER 129 mg/dL 70-110 H TESTED AT [place] [address] ([facility]) (test code = [facility]) [address] PROTHROMBIN [id number] 00:32:00 Test Item Value Reference Range Interpretation Comments PROTIME (BEAKER) (test code = 15.2 seconds 11.7-14.7 H 759) [facility] (test code = 370) 1.2 <=5.9 RECOMMENDED COUMADIN/WARFARIN INR THERAPY RANGESSTANDARD DOSE: 2.0 - 3.0 Includes: PROPHYLAXIS forvenous thrombosis, systemic embolization; TREATMENT for venous thrombosis and/or pulmonary embolus.HIGH RISK: Target INR is 2.5-3.5 for patients with mechanical heart valves.POCT-GLUCOSE [id number] 00:25:00 Test Item Value Reference Range Interpretation Comments POC-GLUCOSE METER 113 mg/dL 70-110 H TESTED AT [facility] 67 ([facility]) (test code = [facility] 1538) [address] POCT-GLUCOSE [id number] 18:42:00 Test Item Value Reference Range Interpretation Comments POC-GLUCOSE METER 131 mg/dL 70-110 H TESTED AT [place] [address] (BEAKER) (test code = CRISTINE Siddiqi [place] 1538) [address] BASIC METABOLIC [id number] 15:45:00 Test Item Value Reference Range Interpretation [...] NOT APPLICABLE FOR DIALYSIS PATIEN TS. POCT-GLUCOSE [id number] 12:52:00 Test Item Value Reference Range Interpretation Comments POC-GLUCOSE METER 101 mg/dL 70-110 TESTED AT [place] [id number] (BEAKER) (test code = [facility] [place] 1538) [address] BASIC METABOLIC [id number] 11:57:00 Test Item Value Reference Range Interpretation [...] S NOT APPLICABLE FOR DIALYSIS PATIEN TS. [id number] 07:51:00 Test Item Value Reference Range Interpretation Comments PHOSPHORUS (BEAKER) (test code = 2.9 mg/dL 2.3-4.7 604) [id number] 07:51:00 Test Item Value Reference Range Interpretation Comments MAGNESIUM (BEAKER) (test code = 2.1 mg/dL 1.6-2.6 627) POCT-GLUCOSE [id number] 05:53:00 Test Item Value Reference Range Interpretation Comments POC-GLUCOSE METER 114 mg/dL 70-110 H TESTED AT [facility] 6720 (BEAKER) (test code = CRISTINE Siddiqi [place] 1538) [address] CBC W/PLT COUNT & AUTO [id number] 04:49:00 Test Item Value Reference Range Interpretation [...] PERCENT (BEAKER) (test code = 2801) POCT-GLUCOSE [id number] 00:02:00 Test Item Value Reference Range Interpretation Comments POC-GLUCOSE METER 115 mg/dL 70-110 H TESTED AT [place] [address] ([facility]) ([facility] = [facility] 1538) [address] POCT-GLUCOSE [id number] 19:23:00 Test Item Value Reference Range Interpretation Comments POC-GLUCOSE METER 108 mg/dL 70-110 TESTED AT [facility] 6720 ([facility]) (test code = [facility]38) [address] [id number] 18:25:00 Test Item Value Reference Range Interpretation Comments MAGNESIUM ([facility]) (test code = 1.9 mg/dL 1.6-2.6 627) [...] after PO replacement completedRAD, ABDOMEN/KUB, 1 VIEW [id number] 13:13:00Reason for exam:->corpak Should this be performed at the bedside?->YesFINAL REPORT AP abdomen HISTORY: Feeding tube COMPARISON: None IMPRESSION:Feeding tube present projecting within the stomach. Bowel gas pattern not well assessed but grossly nonobstructive. Signed: Christiano Granados MDReport Verified Date/Time: 02/04/2018 13:13:34 Reading Location: [facility] POCT-GLUCOSE [id number] 12:24:00 Test Item Value Reference Range Interpretation Comments POC-GLUCOSE METER 103 mg/dL 70-110 TESTED AT [facility] 6720 (BEAKER) (test code = [facility] 1538) [address] POCT-GLUCOSE [id number] 06:15:00 Test Item Value Reference Range Interpretation Comments POC-GLUCOSE METER 95 mg/dL 70-110 TESTED AT [facility] 6720 (BEAKER) (test code = [facility] [place] [facility] [address] 1538) [id number] 03:37:00 Test Item Value Reference Range Interpretation Comments PHOSPHORUS (BEAKER) (test code = 2.2 mg/dL 2.3-4.7 L 604) [id number] 03:37:00 Test Item Value Reference Range Interpretation Comments MAGNESIUM (BEAKER) (test code = 1.7 mg/dL 1.6-2.6 627) BASIC METABOLIC [id number] 03:37:00 Test Item Value Reference Range Interpretation [...] PATIEN TS. CBC W/PLT COUNT & AUTO [id number] 03:36:00 Test Item Value Reference Range Interpretation [...] % 0-1 PERCENT (BEAKER) (test code = 2800) POCT-GLUCOSE [id number] 00:31:00 Test Item Value Reference Range Interpretation Comments POC-GLUCOSE METER 111 mg/dL 70-110 H TESTED AT [place] [address] ([facility]) (test code = [facility]38) [address] POCT-GLUCOSE [id number] 18:42:00 Test Item Value Reference Range Interpretation Comments POC-GLUCOSE METER 91 mg/dL 70-110 TESTED AT [place] [address] ([facility]) (test code = [facility] [address] 1538) POCT-GLUCOSE [id number] 15:25:00 Test Item Value Reference Range Interpretation Comments POC-GLUCOSE METER 92 mg/dL 70-110 TESTED AT [place] [address] ([facility]) (test code = [facility] [address] 1538) CT BRAIN WITHOUT IV CONTRAST - [id number] 13:09:00Reason for exam:- >follow up EVD removalFINAL [...] MDReport Verified Date/Time: 02/03/2018 13:09:24 Reading Location: [address] Neuro Reading Room TITIS PANEL, [id number] 06:20:00 Test Item Value Reference Range Interpretation Comments HEPATITIS A IGM ANTIBODY (BEAKER) Nonreactive Nonreactive (test code = 498) HEPATITIS B CORE IGM ANTIBODY Nonreactive Nonreactive (BEAKER) (test code = 645) HEPATITIS C ANTIBODY (BEAKER) Reactive Nonreactive A (test code = 367) HEPATITIS B SURFACE ANTIGEN (2) Nonreactive Nonreactive (BEAKER) (test code = 2585) [id number] 04:57:00 Test Item Value Reference Range Interpretation Comments MAGNESIUM (BEAKER) (test code = 1.9 mg/dL 1.6-2.6 627) BASIC METABOLIC [id number] 04:57:00 Test Item Value Reference Range Interpretation [...] APPLICABLE FOR DIALYSIS PATIEN TS. HEPATIC FUNCTION [id number] 04:57:00 Test Item Value Reference Range Interpretation [...] (test code = 16 U/L 6-55 347) [id number] 04:56:00 Test Item Value Reference Range Interpretation Comments PHOSPHORUS (BEAKER) (test code = 1.7 mg/dL 2.3-4.7 L 604) CBC W/PLT COUNT & AUTO [id number] 03:59:00 Test Item Value Reference Range Interpretation [...] PERCENT (BEAKER) (test code = 2801) POCT-GLUCOSE [id number] 01:18:00 Test Item Value Reference Range Interpretation Comments POC-GLUCOSE METER 103 mg/dL 70-110 TESTED AT [facility] 6720 (BEAKER) (test code = CRISTINE Siddiqi [place] 1538) [address] POCT-GLUCOSE [id number] 19:16:00 Test Item Value Reference Range Interpretation Comments POC-GLUCOSE METER 114 mg/dL 70-110 H TESTED AT [facility] 6720 (BEAKER) (test code = CRISTINE Siddiq[place] 1538) [address] POCT-GLUCOSE [id number] 13:29:00 Test Item Value Reference Range Interpretation Comments POC-GLUCOSE METER 107 mg/dL 70-110 TESTED AT [place] [address] (BEAKER) (test code = CRISTINE Siddiq[place] 1538) [address] SPUTUM CULTURE + GRAM [id number] 10:09:00 Test Item Value Reference Range Interpretation Comments CULTURE (BEAKER) 1+ Normal respiratory (test code = 1095) carla present GRAM STAIN RESULT 1+ WBCs (BEAKER) (test code = 1123) GRAM STAIN RESULT 2+ gram positive cocci (BEAKER) (test code = in pairs 83726) GRAM STAIN RESULT 2+ gram positive cocci (BEAKER) (test code = in chains 04558) GRAM STAIN RESULT 0-5 epithelial cells (BEAKER) (test code = 930484) CBC W/PLT COUNT & AUTO [id number] 06:44:00 Test Item Value Reference Range Interpretation [...] PERCENT (BEAKER) (test code = 2801) POCT-GLUCOSE [id number] 06:25:00 Test Item Value Reference Range Interpretation Comments POC-GLUCOSE METER 115 mg/dL 70-110 H TESTED AT [facility] 6720 (BEAKER) (test code = [facility] 1538) [address] BLOOD GAS, [id number] 06:22:00 Test Item Value Reference Range Interpretation [...] (BEAKER) (test code = 1819) 21.0 % [id number] 05:44:00 Test Item Value Reference Range Interpretation Comments PHOSPHORUS (BEAKER) (test code = 1.7 mg/dL 2.3-4.7 L 604) [id number] 05:44:00 Test Item Value Reference Range Interpretation Comments MAGNESIUM (BEAKER) (test code = 1.9 mg/dL 1.6-2.6 627) BASIC METABOLIC [id number] 05:44:00 Test Item Value Reference Range Interpretation [...] NOT APPLICABLE FOR DIALYSIS PATIEN TS. POCT-GLUCOSE [id number] 00:49:00 Test Item Value Reference Range Interpretation Comments POC-GLUCOSE METER 124 mg/dL 70-110 H TESTED AT [facility] 67[facility] (test code = CRISTINE [place] 1538) [address] POCT-GLUCOSE [id number] 18:34:00 Test Item Value Reference Range Interpretation Comments POC-GLUCOSE METER 144 mg/dL 70-110 H TESTED AT [facility] 6720 (BEAKER) (test code = [place] 1538) [address] POCT-GLUCOSE [id number] 12:39:00 Test Item Value Reference Range Interpretation Comments POC-GLUCOSE METER 124 mg/dL 70-110 H TESTED AT [facility] 6720 (BEAKER) (test code = CRISTINE [place] 1538) [address] BLOOD GAS, [id number] 11:19:00 Test Item Value Reference Range Interpretation [...] % CT BRAIN WITHOUT IV CONTRAST - [id number] 09:26:00Reason for exam:- >ICH with IVHFINAL REPORT [...] Wiseman Verified Date/Time: 02/01/2018 09:26:57 Reading Location: [address] Neuro Reading Room HEMOGLOBIN [id number] 08:20:00 Test Item Value Reference Range Interpretation Comments HEMOGLOBIN A1C (BEAKER) (test code = 6.1 % 4.3-6.1 368) RAD, CHEST, 1 VIEW, NON [id number] 07:38:00Reason for exam:- >intubationShould this be performed [...] Wiseman Verified Date/Time: 02/01/2018 07:38:36 Reading Location: [address] Neuro Reading Room E lectronically signed by: SALAS WISEMAN M.D. on 02/01/2018 07:38 AMPOCT- GLUCOSE [id number] 06:57:00 Test Item Value Reference Range Interpretation Comments POC-GLUCOSE METER 123 mg/dL 70-110 H TESTED AT [facility] 6720 (BEAKER) (test code = [place] 1538) [address] BLOOD GAS, [id number] 04:33:00 Test Item Value Reference Range Interpretation Comments PH ARTERIAL (BEAKER) (test code = 7.39 7.35-7.45 383) PCO2 [...] (BEAKER) (test code = 1819) 60.0 % [id number] 04:18:00 Test Item Value Reference Range Interpretation Comments PHOSPHORUS (BEAKER) (test code = 3.4 mg/dL 2.3-4.7 604) [id number] 04:18:00 Test Item Value Reference Range Interpretation Comments MAGNESIUM (BEAKER) (test code = 1.2 mg/dL 1.6-2.6 L 627) BASIC METABOLIC [id number] 04:18:00 Test Item Value Reference Range Interpretation [...] PATIEN TS. CBC W/PLT COUNT & AUTO [id number] 04:06:00 Test Item Value Reference Range Interpretation [...] 0-1 PERCENT (BEAKER) (test code = 2801) [id number] 02:07:00 Test Item Value Reference Range Interpretation Comments RPR SCREEN (BEAKER) (test code = Nonreactive Nonreactive 420) HEPATIC FUNCTION [id number] 22:17:00 Test Item Value Reference Range Interpretation [...] = 19 U/L 6-55 347) CT, CTANGIO [id number] 21:00:00FINAL REPORT CTA carotids and brain 01/31/2018 [...] intracranialAtherosclerotic vascular disease.4. Spondylosis. Signed: Salas Wiseman Verified Date/Time: 01/31/2018 21:00:54 Reading Location: [facility] Radiology Reading Room CT, CAROTID, [id number] 21:00:00FINAL REPORT CTA carotids and brain 01/31/2018 [...] intracranialAtherosclerotic vascular disease.4. Spondylosis. Signed: Salas Wiseman Verified Date/Time: 01/31/2018 21:00:54 Reading Location: [facility] Radiology Reading Room TSH/FREE T4 IF [id number] 20:05:00 Test Item Value Reference Range Interpretation Comments THYROID STIMULATING HORMONE 2.07 uIU/mL 0.35-4.94 (BEAKER) (test code = 772) VITAMIN B12 AND [id number] 20:05:00 Test Item Value Reference Range Interpretation Comments VITAMIN B12 (BEAKER) (test code = 340 pg/mL 213-816 774) FOLATE (BEAKER) (test code = 362) 11.0 ng/mL >=7.0 PROTHROMBIN [id number] 19:56:00 Test Item Value Reference Range Interpretation Comments PROTIME (BEAKER) (test code = 14.1 seconds 11.7-14.7 759) INR (BEAKER) (test code = 370) 1.1 <=5.9 RECOMMENDED COUMADIN/WARFARIN INR THERAPY RANGESSTANDARD DOSE: 2.0 - 3.0 Includes: PROPHYLAXIS forvenous thrombosis, systemic embolization; TREATMENT for venous thrombosis and/or pulmonary embolus.HIGH RISK: Target INR is 2.5-3.5 for patients with mechanical heart valves.[id number] 19:56:00 Test Item Value Reference Range Interpretation Comments PARTIAL THROMBOPLASTIN TIME 31.5 seconds 22.5-36.0 (BEAKER) (test code = 760) CBC W/PLT COUNT & AUTO [id number] 19:45:00 Test Item Value Reference Range Interpretation [...] (BEAKER) (test code = 2801) COMPREHENSIVE METABOLIC [id number] 19:30:00 Test Item Value Reference Range Interpretation [...] S NOT APPLICABLE FOR DIALYSIS PATIEN TS. [id number] 19:30:00 Test Item Value Reference Range Interpretation Comments MAGNESIUM (BEAKER) 1.6 mg/dL 1.6-2.6 Specimen slightly (test code = 627) hemolyzed LIPID [id number] 19:30:00 Test Item Value Reference Range Interpretation [...] 130-159 High 160-189 Very High >=190BLOOD GAS, [id number] 19:28:00 Test Item Value Reference Range Interpretation [...] = 1818) RAD, CHEST, 1 VIEW, NON [id number] 17:49:00Post-intubationReason for exam:- >post intubationShould this be [...] osseous abnormality is identified. Signed: Riley Xavier Verified Date/Time: 01/31/2018 17:49:49 Reading Location: [facility] [id number] Consult Reading Room
[2021-07-22 21:11] LABS: Absolute Lymphocytes (CBC) 2.4 K/uL (0.7-4.9); Basophils % 0.6 % (0-1.3); Hematocrit 50.2 % (39.6-49.0); Lymphocytes % 30.9 % (15.3-44.8); RBC Red Blood Cell Count 5.15 M/uL (4.33-5.43)
[2021-07-22 21:15] LABS: Protime INR 0.98
[2021-07-22 21:25] LABS: Potassium 3.8 mmol/L (3.5-5.1)
--- NOTE | 2021-07-22 21:26 | RAD REPORT ---
EXAM DESCRIPTION: CT - Ct Stroke Brain Wo Cont - 07/22/2021 9:02 pm CLINICAL HISTORY: Slurred speech COMPARISON: Prior head CT's were unavailable for comparison due to technical difficulties TECHNIQUE: Computed axial tomography of the head was obtained. All CT scans are performed using dose optimization technique as appropriate and may include automated exposure control or mA/KV adjustment according to patient size. FINDINGS: Postsurgical changes of a left craniotomy. 4.3 centimeter fluid collection within the left occipital parietal region likely cystic encephalomalacia secondary to an old intraparenchymal hemato ma. The left lateral ventricle is dilated. A 1 centimeter calcification in this region is chronic. No acute intracranial bleed. Vague 12 millimeter low-density area is present within the right holly No extra-axial fluid collection is noted. Mild to moderate low-density within periventricular, deep and subcortical white matter likely ischemi c changes secondary to small vessel disease Fluid within the sinuses/ mastoids is not seen. IMPRESSION: 4.3 centimeter fluid collection within the left occipital parietal region likely cystic encephalomalacia Vague 12 millimeter low-density area within the holly probably either artifact or old infarct. An acut e infarct although possible is considered less likely and should be correlated clinically. If the patient continues to have symptoms to suggest acute intracranial pathology then MRI would be r ecommended Kristian Page of the emergency room was notified at 9:10 p.m. on July 22, 2021
--- NOTE | 2021-07-22 21:35 | RAD REPORT ---
EXAM DESCRIPTION: Gavi Single View07/22/2021 9:29 pm CLINICAL HISTORY: Slurred speech COMPARISON: 2018 FINDINGS: The lungs appear clear of acute infiltrate. The heart is normal size IMPRESSION: No acute abnormalities displayed
--- NOTE | 2021-07-22 22:02 | ER ---
Nurse's Notes [facility] Name: Edmund Caballero Age: 71 yrs Sex: Male : 1950 Arrival Date: 07/22/2021 Time: 19:55 Bed Waiting [facility] MD: Diagnosis: Presentation: 07/22 20:33 Chief complaint: Patient states: Pt is concerned to about having a hernia in his right kg groin. Pt stated that he's had 5 hernias in the past. 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 Coronavirus screen: Vaccine status: Patient reports receiving the 2nd dose of the covid vaccine. Date December 29, 2020 [employer] Patient reports receiving the 1st dose of the Covid vaccine. Date December 08, 2020 [employer]. Ebola Screen: Patient negative for fever greater than or equal to 101.5 degrees Fahrenheit, and additional compatible Ebola Virus Disease symptoms Patient denies exposure to infectious person. Patient denies travel to an Ebola-affected area in the 21 days before illness onset. Initial Sepsis Screen: Does the patient meet any 2 criteria? No. Patient's initial sepsis screen is negative. Does the patient have a suspected source of infection? No. Patient's initial sepsis screen is negative. Risk Assessment: Do you want to hurt yourself or someone else? Patient reports no desire to harm self or others. Onset of symptoms is unknown. 20:33 Method Of Arrival: Ambulatory kg 20:33 Acuity: KIRK 3 kg 22:00 Note pt pulled out IV and left the ED. bb Stroke Activation: Symptom onset > 6 hours Physician: Stroke Attending; Name: ; Notified At: ; Arrived At: Physician: Chief Stroke Resident; Name: ; Notified At: ; Arrived At: Physician: Stroke Resident; Name: ; Notified At: ; Arrived At: Physician: ED Attending; Name: Luiz; Notified At: ; Arrived At: Physician: ED Resident; Name: ; Notified At: ; Arrived At: Historical: - Allergies: 20:49 NKA; kg - PMHx: 20:49 CVA; Cognitive, behavioral deficits; High Cholesterol; Hypertension; Hernia; kg - PSHx: 20:49 Hernia sx; kg Screenin:50 VAN Screening: Arm Drift: Patient shows no arm weakness. Visual Disturbance: No visual kg disturbance noted. Aphasia: Patient exhibits both expressive and receptive aphasia. Provider notified of +VAN scoring. Fall Risk None identified. Vital Signs: 20:33 BP 172 / 85; Pulse 67; Resp 20; Temp 98.0(O); Pulse Ox 100% on R/A; Weight 76.5 kg (M); kg ED Course: 19:55 Patient arrived in ED. bp1 20:40 Inserted saline lock: 20 gauge in right forearm, using aseptic technique. Blood kg collected. 20:49 Triage completed. kg 21:00 CT Stroke Brain w/o Contrast In Process Unspecified. EDMS 21:28 Stroke CXR 1 View In Process Unspecified. EDMS Administered Medications: No medications were administered Outcome: 22:01 Patient left the ED. bb Signatures: Dispatcher [employer] EDMS Rani Reardon, RN RN bb Kristina Kinney bp1 Laure Cr RN RN kg
[2021-07-22 22:06] VITALS: BP 172/85; TEMP 98; O2SAT 100
== END 2021-07-22 22:01 | disposition left against medical advice (07) ==
LOC: ER 19:54
DX: Z53.21 Procedure and treatment not carried out due to patient leaving prior to being seen by health care provider (principal)
CPT/HCPCS: 36415; 70450; 71045; 80048; 82947; 85025; 85610; 85730; 99283

== ENCOUNTER 2023-01-10 11:24 | Emergency (ER) | payer OTHER ==
--- OUTSIDE RECORDS SUMMARY | 2023-01-10 11:36 | XMS REPORT | Continuity of Care Document ---
:1950 Author Organization [facility] t Address [facility] [place] [address] Care Team Providers Name Role Phone Conrado Jhaveri MD Primary Care Physician Conrado Jhaveri MD Attending Clinician Fuad Askew MD Attending Clinician Doctor Unassigned, [place] Attending Clinician Unavailable Etelvina Solano MD Attending Clinician Joellen Bingham MA Attending Clinician Unavailable ERIC BOND Attending Clinician Unavailable Odewolfmi FOUNTAIN DISPENSER, Adetutu Attending Clinician Eric Bond MD Attending Clinician Vaccine, Ang Db Uc Attending Clinician Unavailable Rangel Irby PA-C Attending Clinician RANGEL IRBY Attending Clinician Unavailable Sabrina Bruno MD Attending Clinician SABRINA BRUNO Attending Clinician Unavailable CONRADO JHAVERI Attending Clinician Unavailable Lab, Adc Fam Pob I Attending Clinician Unavailable Wilver Ozuna LVN Attending Clinician Unavailable LEANNA KHAN Attending Clinician Unavailable Mookie Robertson DO Attending Clinician Cj Pedraza MD Attending Clinician ROB MORENO Attending Clinician Unavailable ERIC BOND Admitting Clinician Unavailable rEic Bond MD Admitting Clinician ROB MORENO Admitting Clinician Unavailable Payers Payer Name Policy Type Policy Number Effective Date Expiration Date S ource Problems Condition Condition Condition Status Onset Resolution Last Treating Co mments Source Name Details Category Date Date Treatment Clinician Date Recurrent Recurrent Disease Active 2020-11 Overview: Univers right right 0-26 Formattin ity of inguinal inguinal 00:00: g of this [place] hernia hernia 00 note Medical might be Branch different from the original. Added automatic ally from request for surgery [id number] Altered Altered Disease Active 2017-11 [facility] mental mental 2-02 st status status 00:00: Hospita 00 l Essential Essential Disease Active [facility] hypertensi hypertensi 3-27 Mei kes on on 00:00: Medical 00 Center Aspiration Aspiration Disease Active [facility] pneumonia pneumonia 3-27 [facility] 00:[facility]: Medical 00 Center Metabolic Metabolic Disease Active [facility] encephalop encephalop 3-27 Mei kes athy athy 00:00: Medical 00 Center Oropharyng Oropharyng Disease Active [facility] eal eal 3-27 [facility] dysphagia dysphagia 00:00: Medi luanne 00 Center ICH ICH Disease Active [facility] (intracere (intracere 3-16 Mei kes bral bral 00:00: Medical hemorrhage hemorrhage 00 Ce nter ) ) Allergies, Adverse Reactions, Alerts Allergy Allergy Status Severity Reaction(s) Onset Inactive Treating Comm ents Source Name Type Date Date Clinician NO KNOWN Drug Active Univers ALLERGIE Class [facility] [place] [facility] Social History Social Habit Start Date Stop Date Quantity Comments Source History of Cigar Smoker University o f tobacco use [facility] Branch Exposure to Not sure Kathleen of SARS-CoV-2 [place] [facility] (event) Branch History SDOH [facility] Drinks History SDSD [facility] Alcohol intake 2020-01-11 2020-01-11 Current [facility] 00:00:00 00:00:00 non-drinker of Hospital alcohol (finding) History SDOH 2020-01-11 2020-01-11 1 Church Alcohol Frequency 00:00:00 00:00:00 Hospita l Tobacco use and 2019-04-27 2019-04-27 Smokeless tobacco Un iversity of exposure 00:00:00 00:00:00 non-user [facility] Sex Ass[birth year] At [birth year] PAKO [place] 00:00:00 00:00:00 Medical Center Smoking Status Start Date Stop Date Source Never smoker [facility] Smokes tobacco daily 2019-04-27 00:00:00 Univers ity of [facility] Medications Ordered Filled Start Stop Current Ordering Indication Dosage Frequency Signature Comments Components Source Medication Medication Date Date Medication? Clinician (SIG) Name Name gabapentin 2021-11 Yes [id number] 300mg Q.5D Take 1 [facility] (NEURONTIN) [address] 300 mg 00:00: (300 mg Hospita capsule 00 total) by l mouth 2 (two) times a day. gabapentin 2021- No [id number] 300mg Q.5D Take 1 [facility] (NEURONTIN) 08-[address] 300 mg 00:00: 00:00 (300 mg Hospita capsule 00 :00 total) by l mouth 2 (two) times a day. metoprolol Yes [id number] TAKE ONE Univers tartrate 25 9-19 (1) TABLET it y of mg tablet 00:00: BY MOUTH [place] Medical BEDTIME. Branch metoprolol Yes [id number] TAKE ONE Univers tartrate 25 9-19 (1) TABLET it y of mg tablet 00:00: BY MOUTH [place] Medical BEDTIME. Branch metoprolol Yes [id number] TAKE ONE Univers tartrate 25 9-19 (1) TABLET it y of mg tablet 00:00: [place]TH [place] AT Medical BEDTIME. Branch metoprolol Yes [id number] TAKE ONE Univers tartrate 25 9-19 (1) TABLET it y of mg tablet 00:00: [place]TH [place] AT Medical BEDTIME. Branch metoprolol Yes [id number] TAKE ONE Univers tartrate 25 9-19 (1) TABLET it y of mg tablet 00:00: BY MOUTH [place] Medical BEDTIME. Branch LISINOPRIL Yes TAKE ONE Uni vers 10 mg 6-22 (1) TABLET ity of tablet 00:00: BY MOUTH [place] 00 EVERY Medical MORNING. Branch LISINOPRIL Yes TAKE ONE Uni vers 10 mg 6-22 (1) TABLET ity of tablet 00:00: BY MOUTH [place] 00 EVERY Medical MORNING. Branch LISINOPRIL Yes TAKE ONE Uni vers 10 mg 6-22 (1) TABLET ity of tablet 00:00: BY MOUTH [place] [address] EVERY Medical MORNING. Branch LISINOPRIL Yes TAKE ONE Uni vers 10 mg 6-22 (1) TABLET ity of tablet 00:00: BY MOUTH [place] [address] EVERY Medical MORNING. Branch LISINOPRIL Yes TAKE ONE Uni vers 10 mg 6-22 (1) TABLET ity of tablet 00:00: BY MOUTH [place] [address] EVERY Medical MORNING. Branch gabapentin 2021- No [id number] TAKE ONE [facility] (NEURONTIN) 1-14 08-17 (1) st 300 mg 00:00: 00:00 CAPSULE(S) Hosp jacquelyn capsule 00 :00 BY MOUTH l TWICE A DAY. gabapentin 2020-11 Yes 300mg Take 300 Un denise 300 mg 2-21 mg by ity of capsule 11:05: mouth at [place] [address] bedtime. Medical Branch esomeprazol 2020-11 Yes 40mg Take 40 mg Univers e 40 mg 2-21 by mouth. ity of capsule 11:05: [address] lisinopriL 2020-11 Yes 10mg Take 10 mg U nivers 5 mg tablet 2-21 by mouth ity of 11:05: daily. [address] MULTIVITAMI 2020-11 Yes Take by Uni vers N ORAL 2-21 mouth. ity of 11:05: [address] gabapentin 2020-11 Yes 300mg Take 300 Un denise 300 mg 2-21 mg by ity of capsule 11:05: mouth at [place] [address] bedtime. Medical Branch esomeprazol 2020-11 Yes 40mg Take 40 mg Univers e 40 mg 2-21 by mouth. ity of capsule 11:05: [address] lisinopriL 2020-11 Yes 10mg Take 10 mg U nivers 5 mg tablet 2-21 by mouth ity of 11:05: daily. [address] MULTIVITAMI 2020-11 Yes Take by Uni vers N ORAL 2-21 mouth. ity of 11:05: [place] 13 Medical Branch gabapentin 2020-11 Yes 300mg Take 300 Un denise 300 mg 2-21 mg by ity of capsule 11:05: mouth at [place] [address] bedtime. Medical Branch esomeprazol 2020-11 Yes 40mg Take 40 mg Univers e 40 mg 2-21 by mouth. ity of capsule 11:05: [address] Branch lisinopriL 2020-11 Yes 10mg Take 10 mg U nivers 5 mg tablet 2-21 by mouth ity of 11:05: daily. [address] MULTIVITAMI 2020-11 Yes Take by Uni vers N ORAL 2-21 mouth. ity of 11:05: [address] Branch gabapentin 2020-11 Yes 300mg Take 300 Un denise 300 mg 2-21 mg by ity of capsule 11:05: mouth at [place] [address] bedtime. Medical Branch esomeprazol 2020-11 Yes 40mg Take 40 mg Univers e 40 mg 2-21 by mouth. ity of capsule 11:05: [address] MULTIVITAMI 2020-11 Yes Take by Uni vers N ORAL 2-21 mouth. ity of 11:05: [address] gabapentin 2020-11 Yes 300mg Take 300 Un denise 300 mg 2-21 mg by ity of capsule 11:05: mouth at [place] [address] bedtime. Medical Branch esomeprazol 2020-11 Yes 40mg Take 40 mg Univers e 40 mg 2-21 by mouth. ity of capsule 11:05: [address] MULTIVITAMI 2020-11 Yes Take by Uni vers N ORAL 2-21 mouth. ity of 11:05: [address] Branch gabapentin 2020-11 Yes 300mg Take 300 Un denise 300 mg 2-21 mg by ity of capsule 11:05: mouth at [place] [address] bedtime. Medical Branch esomeprazol 2020-11 Yes 40mg Take 40 mg Univers e 40 mg 2-21 by mouth. ity of capsule 11:05: [address] MULTIVITAMI 2020-11 Yes Take by Uni vers N ORAL 2-21 mouth. ity of 11:05: [address] gabapentin 2020-11 Yes 300mg Take 300 Un denise 300 mg 2-21 mg by ity of capsule 11:05: mouth at [place] [address] bedtime. Medical Branch esomeprazol 2020-11 Yes 40mg Take 40 mg Univers e 40 mg 2-21 by mouth. ity of capsule 11:05: [place] [address] Medical Branch MULTIVITAMI 2020-11 Yes Take by Uni vers N ORAL 2-21 mouth. ity of 11:05: [place] [address] Medical Branch gabapentin 2020-11 Yes 300mg Take 300 Un denise 300 mg 2-21 mg by ity of capsule 11:05: mouth at [place] [address] bedtime. Medical Branch esomeprazol 2020-11 Yes 40mg Take 40 mg Univers e 40 mg 2-21 by mouth. ity of capsule 11:05: [place] [address] Medical Branch MULTIVITAMI 2020-11 Yes Take by Uni vers N ORAL 2-21 mouth. ity of 11:05: [place] [address] Medical Branch acetaminoph 2020-11 Yes [id number] 500mg Take 1 Univers en (TYLENOL 2-09 tablet by ity of EXTRA 00:00: mouth [place] STRENGTH) 00 every 6 Medical 500 mg (six) Branch tablet hours as needed for Pain. acetaminoph 2020-11 Yes [id number] 500mg Take 1 Univers en (TYLENOL 2-09 tablet by ity of EXTRA 00:00: mouth [place] STRENGTH) 00 every 6 Medical 500 mg (six) Branch tablet hours as needed for Pain. acetaminoph 2020-11 Yes [id number] 500mg Take 1 Univers en (TYLENOL 2-09 tablet by ity of EXTRA 00:00: mouth [place] STRENGTH) 00 every 6 Medical 500 mg (six) Branch tablet hours as needed for Pain. acetaminoph 2020-11 Yes [id number] 500mg Take 1 Univers en (TYLENOL 2-09 tablet by ity of EXTRA 00:00: mouth [place] STRENGTH) 00 every 6 Medical 500 mg (six) Branch tablet hours as needed for Pain. acetaminoph 2020-11 Yes [id number] 500mg Take 1 Univers en (TYLENOL 2-09 tablet by ity of EXTRA 00:00: mouth [place] STRENGTH) 00 every 6 Medical 500 mg (six) Branch tablet hours as needed for Pain. acetaminoph 2020-11 Yes [id number] 500mg Take 1 Univers en (TYLENOL 2-09 tablet by ity of EXTRA 00:00: mouth [place] STRENGTH) 00 every 6 Medical 500 mg (six) Branch tablet hours as needed for Pain. acetaminoph 2020-11 Yes [id number] 500mg Take 1 Univers en (TYLENOL 2-09 tablet by ity of EXTRA 00:00: mouth [place] STRENGTH) 00 every 6 Medical 500 mg (six) Branch tablet hours as needed for Pain. acetaminoph 2020-11 Yes [id number] 500mg Take 1 Univers en (TYLENOL 2-09 tablet by ity of EXTRA 00:00: mouth [place] STRENGTH) 00 every 6 Medical 500 mg (six) Branch tablet hours as needed for Pain. gabapentin Yes [id number] TAKE ONE [facility] (NEURONTIN) 8-30 (1) st 300 mg 00:00: CAPSULE(S) Hospi ta capsule 00 BY MOUTH l TWICE A DAY. metoprolol Yes [id number] 25mg Take 1 U nivers tartrate 25 7-15 tablet by ity of mg tablet 00:00: mouth [place] 00 bedtime. Medical Branch metoprolol Yes [id number] 25mg Take 1 U nivers tartrate 25 7-15 tablet by ity of mg tablet 00:00: mouth [place] 00 bedtime. Medical Branch metoprolol Yes [id number] 25mg Take 1 U nivers tartrate 25 7-15 tablet by ity of mg tablet 00:00: mouth [place] 00 bedtime. Medical Branch metoprolol 2021- No [id number] 25mg Take 1 Univers tartrate 25 7-15 09-19 tablet by it y of mg tablet 00:00: 00:00 mouth at [place] 00 :00 bedtime. Medical Branch memantine 2021- No [id number] 5mg Q.5D Take 1 [facility] (Namenda) 5 01-12 9104 tablet (5 st MG tablet 00:00: 05:59 mg total) Ho spita 00 :00 by mouth 2 l (two) times a day. memantine 2021- No [id number] 5mg Q.5D Take 1 [facility] (Namenda) 5 2- 9104 tablet (5 st MG tablet 00:00: 05:59 mg total) Ho spita 00 :00 by mouth 2 l (two) times a day. gabapentin 2020- No [id number] 300mg Q.5D Take 1 [facility] (NEURONTIN) 2-[address] 300 mg 00:00: 00:00 (300 mg Hospita capsule 00 :00 total) by l mouth 2 (two) times a day. gabapentin 2020- No [id number] 300mg Q.5D Take 1 [facility] (NEURONTIN) 06-[address] 300 mg 00:00: 00:00 (300 mg Hospita capsule 00 :00 total) by l mouth 2 (two) times a day. memantine 2020- No [id number] 10mg Q.5D Take 1 [facility] (Namenda) 06-29 9104 tablet (10 st 10 MG 00:00: 00:00 mg total) Hospit a tablet 00 :00 by mouth 2 l (two) times a day. esomeprazol 0 Yes 40mg QD Take 40 mg Methodi e (NexIUM) 2-[address] 40 MG 17:26: daily Hospita capsule 16 before l breakfast. esomeprazol 0 Yes 40mg QD Take 40 mg Methodi e (NexIUM) 2-[address] 40 MG 11:26: daily Hospita capsule 16 before l breakfast. lisinopril 0 Yes 10mg QD Take 10 mg M ethodi (PRINIVIL,Z 1-[address] ESTRIL) 5 21:33: daily. Hospit a mg tablet 05 Hold l sBP,110 or hr,60 lisinopril 2018- Yes 10mg QD Take 10 mg M ethodi (PRINIVIL,Z 1-[address] ESTRIL) 5 15:33: daily. Hospit a mg tablet 05 Hold l sBP,110 or hr,60 metoprolol 2018-0 Yes Q12H [facility] tartrate 4-17 st (LOPRESSOR) 00:00: Hospit a 50 mg 00 l tablet metoprolol 2018-0 Yes Q12H [facility] tartrate 4-17 st (LOPRESSOR) 00:00: Hospit a 50 mg 00 l tablet atorvastati 2017-0 Yes 20mg QD Take [address] [facility] (LIPITOR) 3-30 by mouth [place] [facility] 20 MG 14:59: daily. Medical tablet 46 Center atorvastati 2017-0 Yes 20mg QD Take [address] [facility] (LIPITOR) 3-30 by mouth [place] [facility] 20 MG 14:59: daily. Medical tablet 46 Center Immunizations Ordered Filled Immunization Date Status Comments [facility] e Immunization Name Name SARS-COV-2 COVID-19 2021-11-05 Completed Unive rsity of PFIZER VACCINE 00:00:00 [facility] SARS-COV-2 COVID-19 2021-11-05 Completed Unive rsity of PFIZER VACCINE 00:00:00 [facility] Branch SARS-COV-2 COVID-19 2021-11-05 Completed Unive rsity of PFIZER VACCINE 00:00:00 [facility] Branch SARS-COV-2 COVID-19 2021-11-05 Completed Unive rsity of PFIZER VACCINE 00:00:00 [facility] Branch SARS-COV-2 COVID-19 2021-11-05 Completed Unive rsity of PFIZER VACCINE 00:00:00 [facility] Branch SARS-COV-2 COVID-19 2021-11-05 Completed Unive rsity of PFIZER VACCINE 00:00:00 [facility] SARS-COV-2 COVID-19 2021-11-05 Completed Unive rsity of PFIZER VACCINE 00:00:00 [facility] SARS-COV-2 COVID-19 2021-11-05 Completed Unive rsity of PFIZER VACCINE 00:00:00 [facility] SARS-COV-2 COVID-19 2020-12-29 Completed Unive rsity of PFIZER VACCINE 00:00:00 [facility] SARS-COV-2 COVID-19 2020-12-29 Completed Unive rsity of PFIZER VACCINE 00:00:00 [facility] SARS-COV-2 COVID-19 2020-12-29 Completed Unive rsity of PFIZER VACCINE 00:00:00 [facility] SARS-COV-2 COVID-19 2020-12-29 Completed Unive rsity of PFIZER VACCINE 00:00:00 [facility] SARS-COV-2 COVID-19 2020-12-29 Completed Unive rsity of PFIZER VACCINE 00:00:00 [facility] SARS-COV-2 COVID-19 2020-12-29 Completed Unive rsity of PFIZER VACCINE 00:00:00 [facility] SARS-COV-2 COVID-19 2020-12-29 Completed Unive rsity of PFIZER VACCINE 00:00:00 [facility] SARS-COV-2 COVID-19 2020-12-29 Completed Unive rsity of PFIZER VACCINE 00:00:00 [facility] SARS-COV-2 COVID-19 2020-12-08 Completed Unive rsity of PFIZER VACCINE 00:00:00 [facility] SARS-COV-2 COVID-19 2020-12-08 Completed Unive rsity of PFIZER VACCINE 00:00:00 [facility] SARS-COV-2 COVID-19 2020-12-08 Completed Unive rsity of PFIZER VACCINE 00:00:00 [facility] SARS-COV-2 COVID-19 2020-12-08 Completed Unive rsity of PFIZER VACCINE 00:00:00 [facility] SARS-COV-2 COVID-19 2020-12-08 Completed Unive rsity of PFIZER VACCINE 00:00:00 [facility] SARS-COV-2 COVID-19 2020-12-08 Completed Unive rsity of PFIZER VACCINE 00:00:00 [facility] SARS-COV-2 COVID-19 2020-12-08 Completed Unive rsity of PFIZER VACCINE 00:00:00 [facility] SARS-COV-2 COVID-19 2020-12-08 Completed Unive rsity of PFIZER VACCINE 00:00:00 [facility] Vital Signs Vital Name Observation Time Observation Value Comments Source Systolic blood 2021-11-07 17:06:00 159 mm[Hg] Univer sity of pressure [facility] Diastolic blood 2021-11-07 17:06:00 86 mm[Hg] Unive rsity of pressure [facility] Heart rate 2021-11-07 17:04:00 64 /min [facility] Body temperature 2021-11-07 17:04:00 36.39 May Univ ersity [facility] Respiratory rate 2021-11-07 17:04:00 16 /min Univ ersity [facility] Body height 2021-11-07 17:04:00 175.3 cm [facility] Body weight 2021-11-07 17:04:00 73.029 kg [facility] BMI 2021-11-07 17:04:00 23.78 kg/m2 [facility] Medical Branch Oxygen saturation in 2021-11-07 17:04:00 99 /min [facility] Arterial blood by [facility] Pulse oximetry Branch Procedures Procedure Date / Time Performing Clinician Source Performed EXTERNAL PROVIDER 2022-10-25 06:01:00 Doctor Unassigned, No [facility] RECORDS Name Medical Branch PATIENT QUESTIONNAIRE 2021-11-07 06:01:00 Doctor Unassigned, No [facility] Plan of Care Planned Activity Planned Date Details Comments Source Future Scheduled 2022-10-31 [facility] Test 02:25:03 (procedure) [code = 203247800] Future Scheduled 2022-10-31 COLONOSCOPY SCREENING [facility] Test 02:25:03 [code = COLONOSCOPY SCREENING] Future Scheduled 2022-10-31 SHINGLES VACCINES (1 Met [facility] Test 02:25:03 of 2) [code = SHINGLES VACCINES (1 of 2)] Future Scheduled 2022-10-31 65+ [facility]OCOCCAL [facility] Test 02:25:03 VACCINE (1 - PCV) [code = 65+ PNEUMOCOCCAL VACCINE (1 - PCV)] Future Scheduled 2022-10-31 COVID-19 VACCINE (4 - [facility] Test 02:25:03 Booster for Pfizer series) [code = COVID-19 VACCINE (4 - Booster for Pfizer series)] Future Scheduled 2022-10-31 INFLUENZA VACCINE [facility] Test 02:25:03 [code = INFLUENZA VACCINE] Future Scheduled Hepatitis C screening [facility] (procedure) [code = 020875071] Future Scheduled COLONOSCOPY SCREENING [facility] Test [code = COLONOSCOPY SCREENING] Future Scheduled SHINGLES VACCINES (#1) [facility] Test [code = SHINGLES VACCINES (#1)] Future Scheduled 65+ [facility]UMOCOCCAL [facility] Test VACCINE (1 of 1 - PPSV23) [code = 65+ PNEUMOCOCCAL VACCINE (1 of 1 - PPSV23)] Future Scheduled INFLUENZA VACCINE [facility] Hospital Test [code = INFLUENZA VACCINE] Encounters Start End Encounter Admission Attending Care Care Encounter Source Date/Time Date/Time Type Type Clinicians Facility Department ID 2018-09-10 Inpatient [facility] [id number] H arris 07:02:05 [facility] 2018-09-09 Inpatient [facility] [id number] H arris 15:25:03 Health 2018-09-09 Inpatient [facility] [id number] H arris 11:35:38 Health 2018-09-08 Inpatient [facility] [id number] H arris 12:53:31 Health 2018-09-07 Inpatient [facility] [id number] H arris 09:44:00 Health 2022-12-04 2022-12-04 Patient Shakial [facility] [id number] Univers 00:00:00 00:00:00 Secure Msg Conrado FILIPPO [id number] ity of [facility] 4.[place] PROFESS[place] [id number] [place] dic[address] 2022-11-29 2022-11-29 Telephone Azar [facility] [id number] Univers 00:00:00 00:00:00 [facility] [id number] it [facility] [id number] [place] ADI?BLEA [phone] [place] dical [address] MEDICAL OFFICE BUILDING 2022-10-25 2022-10-25 Orders Doctor RANGEL [id number] Univers 00:00:00 00:00:00 Only Unassigned, NICOLETTE [id number] ity of [place] [facility] [id number] [place] [phone] [address] 2022-09-25 2022-09-25 Telemedici Etelvina Solano 1.2.840.1 [id number] Methodi 15:50:00 15:50:[address] [place] [address] 3.430.2.7 Hospit a .3.070875 l .8 2022-09-25 2022-09-25 Outpatient ETELVINA SOLANO [facility] [id number] [place] 00:00:00 00:00:[address] 2022-09-12 2022-09-12 [facility] [id number] Univers 00:00:00 00:00:00 Conrado [facility] [id number] it y of [place] 4.2.7.2.686 [place] ADI?BLEA [id number] [address] MEDICAL OFFICE [facility] 2022-08-17 2022-08-17 Reflandon Bingham, 1.2.840.1 [id number] Methodi 00:00:00 00:00:[address] 3.430.2.7 Hospit a .3.304026 l .8 2022-08-05 2022-08-05 [facility] 1.2.840.114 [id number] Univers 00:00:00 00:00:00 [facility] [id number] it y of [place] 4.2.7.2.686 [place] ADI?BLEA [id number] [address] MEDICAL OFFICE [facility] 2022-08-05 2022-08-05 RefEtelvina Ingram 1.2.840.1 [id number] Methodi 00:00:00 00:00:[address] 3.430.2.7 Hospit a .3.815921 l .8 2022-02-26 2022-02-26 RefEtelvina Ingram 1.2.840.1 [id number] Methodi 00:00:00 00:00:[address] 3.430.2.7 Hospit a .3.612631 l .8 2022-02-20 2022-02-[address] [facility] [id number] Univers 10:00:00 10:00:00 ity [facility] 2022-02-20 2022-02-[address] [facility] [id number] Univers 10:00:00 10:00:00 ity [facility] 2022-02-07 2022-02-07 [facility] 1.2.840.114 [id number] Univers 00:00:00 00:00:00 Management Adetutu PRIMARY [id number] ity of [facility] 4.2.7.2.686 John Paul [facility] [id number] [place] dictito Franco7 [place] 2021-11-07 2021-11-07 Outpatient R ERIC BOND [facility] [id number] Univers 11:00:00 13:58:21 ity of [facility] 2021-11-07 2021-11-[address] [facility] 1.2.840.114 [id number] Univers 11:00:00 13:58:21 Visit HEALTH [id number] it y of [place] 4.2.7.2.686 [place] [id number] [address] OFFICE BUILDING 2021-11-07 2021-11-07 Outpatient R ERIC BOND [facility] [id number] Univers 11:00:00 11:00:00 ity of [facility] 2021-11-07 2021-11-07 Orders Doctor RANGEL 1.2.840.114 [id number] Univers 00:00:00 00:00:00 Only Unassigned, NICOLETTE [id number] ity of [place] [facility] [id number] [place] as [id number] [facility] 009 [place] 2021-11-05 2021-11-05 Imm/Inj Vaccine, Ang Db [facility] 1.2.840 .114 [id number] Univers 09:40:00 09:50:00 Visit Rangel Irby [id number] ity of [place] 4.2.7.2.686 [place] ADI?BLEA [id number] [facility] [address] [place] MEDICAL OFFICE BUILDING 2021-11-05 2021-11-05 [address] R [address]ANA [facility] [id number] Univers 09:40:00 09:40:00 RANGEL ity of [facility] 2021-10-26 2021-10-26 Outpatient R ERIC BOND [facility] MELISSA [id number] Univers 08:57:00 15:44:00 ity of [facility] 2021-10-26 2021-10-26 [facility] Mei [facility] 1.2.840.114 [id number] Univers 08:57:00 15:44:00 Encounter HEALTH [id number] ity of [place].2.[place] [facility] [id number] [address] ([facility]) 2021-10-26 2021-10-26 Surgery Erci Bond [facility] 1.2.840.114 [id number] Univers 10:25:00 13:35:00 SPECIALTY [id number] ity of [place].7.2.686 [place] [id number] [place] ayleen STOCK [address] [place] [address] 2021-10-24 2021-10-[address] [facility] [id number] Univers 11:00:00 11:00:00 ity of [facility] [facility] 2021-10-24 2021-10-24 Orders Doctor RANGEL 1.2.840.114 [id number] Univers 00:00:00 00:00:00 Only Unassigned, NICOLETTE 350.1.13.10 ity of [place] [facility] 4.2.7.2.686 Toby as [phone] [address] 2021-09-12 2021-09-12 Office Eric Bond [facility] 1.2.840.114 [id number] Univers 13:14:17 17:05:34 Visit Health 350.1.13.10 it [place] [phone] [address] Office Building 2021-09-12 2021-09-12 Outpatient R ERIC BOND [facility] [id number] Univers 13:30:00 13:30:00 ity of [facility] 2021-08-22 2021-08-22 Office Eric Bond [facility] 1.2.840.114 [id number] Univers 09:02:00 15:24:47 Visit Health 350.1.13.10 [place] [phone] [address] Office Building 2021-08-22 2021-08-22 Outpatient R ERIC [facility] [id number] Univers 09:00:00 09:00:00 ity of [facility] 2021-08-16 2021-08-16 [facility] 1.2.840.114 [id number] Univers 08:00:00 23:59:00 Encounter Sabrina Dumont 350.1.13.10 ity of [place] [phone] [facility] [address] 2021-08-16 2021-08-16 [address] [facility] [id number] Univers 00:00:00 00:00:00 SABRINA conner [facility] 2021-08-15 2021-08-15 [facility] [id number] Univers 14:00:00 14:39:56 SABRINA conner [facility] 2021-08-15 2021-08-15 Office [facility] 1.2.753.861 [id number] Univers 13:57:36 14:39:56 Visit Sabrina Dumont 350.1.13.10 i ty of [place].2.[place] [facility] [phone] Nj dical [facility] [address] [facility] 2021-08-13 2021-08-13 Orders Doctor RANGEL 1.2.840.114 [id number] Univers 00:00:00 00:00:00 Only Unassigned, NICOLETTE 350.1.13.10 ity of [place] [facility] 4.2.7.2.686 Toby as [phone] [facility] [address] 2021-07-27 2021-07-27 Patient [facility] 1.2.840.114 [id number] Univers 00:00:00 00:00:00 Secure Msg [facility] 350.1.13.10 ity of [place] 4.2.7.2.686 Toby as Adi?Blea [phone] Nj dical kney [address] Medical Office Building 2021-07-25 2021-07-25 Telephone [facility] 1.2.840.114 [id number] Univers 00:00:00 00:00:00 Conrado Health 350.1.13.10 it y of [place] 4.2.7.2.686 Toby as Adi?Blea [phone] Nj dical [facility] 044 [facility] 2021-07-17 2021-07-17 Etelvina Pressley 1.2.840.1 [id number] Methodi 00:00:00 00:00:[address] 3.430.2.7 Hospit a .3.483644 l .8 2021-06-09 2021-06-09 [facility] [id number] Univers 10:45:00 10:45:00 [facility] 2021-06-06 2021-06-06 [employer] [facility], Adc Fam Pob I [facility] 1.2. 840.114 [id number] Univers 10:01:34 10:17:23 Visit Conrado Jhaveri [facility] 350.1.13 .10 ity of [place] 4.2.7.2.686 [place]y as Professio [phone] [address] One 2021-06-06 2021-06-06 [facility] [id number] Univers 09:00:00 10:17:23 [facility] 2021-06-06 2021-06-06 Telephone [facility] 1.2.840.114 [id number] Univers 00:00:00 00:00:00 [facility] 350.1.13.10 it y of [place] 4.2.7.2.686 [place]y as Professio [phone] [address] One 2021-06-01 2021-06-01 Office [facility] 1.2.840.114 [id number] Univers 10:07:45 10:42:58 Visit [facility] 350.1.13.10 it y of [place] 4.2.7.2.686 Toby as Professio [phone] [address] One 2021-06-01 2021-06-01 Out[facility] [id number] Univers 10:00:00 10:42:58 [facility] 2021-06-01 2021-06-01 [facility] [id number] Univers 10:00:00 10:00:00 [facility] 2021-05-30 2021-05-30 Outpatient [facility] [id number] Univers 11:15:00 11:15:00 [facility] 2021-05-18 2021-05-18 Outpatient [facility] [id number] Univers 10:15:00 10:15:00 [facility] 2021-05-10 2021-05-10 [facility] 1.2.840.114 [id number] Univers 00:00:00 00:00:00 [facility] 350.1.13.10 it y of [place] 4.2.7.2.686 Toby as Professio [phone] [address] One 2021-05-10 2021-05-10 [facility] 1.2.840.114 [id number] 00:00:00 00:00:00 [facility] 350.1.13.10 [place] 4.2.7.2.686 Professio [phone] [address] One 2021-02-23 2021-02-23 [facility] 1.2.840.114 [id number] Univers 00:00:00 00:00:00 [facility] 350.1.13.10 it y of [place] 4.2.7.2.686 [place]y [place] Professio [phone] [address] One 2021-02-23 2021-02-23 [facility] 1.2.840.114 [id number] 00:00:00 00:00:00 [facility] 350.1.13.10 [place] 4.2.7.2.686 Professio [phone] [address] One 2021-02-10 2021-02-10 Patient Laith, UNIVERSIT 1.2.840.114 [id number] Univers 00:00:00 00:00:00 Secure Msg Casaundra M Y 350.1.13.10 ity of [facility] 4.2.7.2.686 Toby as BANK [phone] [facility] BLDG. [address] 2021-02-10 2021-02-10 Patient NISHI Ozuna 1.2.840.114 [id number] 00:00:00 00:00:00 Secure Msg Wilver Carlos Y 350.1.13.10 NATIONAL 4.2.7.2.686 BANK [phone] BLDG. 144 2021-01-12 2021-01-12 Telemedici Etelvina Solano 1.2.840.1 [id number] Methodi 10:11:17 10:31:[address] 3.430.2.7 Hospit a .3.942518 l .8 2020-12-29 2020-12-29 Outpatient [facility] [id number] Univers 09:00:00 09:00:00 LEANNA [facility] 2020-12-09 2020-12-09 Telephone [facility] 1.2.840.114 [id number] Univers 00:00:00 00:00:00 [facility] 350.1.13.10 it y of [place] 4.2.7.2.686 Toby as Professio [phone] Nj dic[address] Office Building One 2020-12-09 2020-12-09 Telephone [facility] 1.2.840.114 [id number] 00:00:00 00:00:00 [facility] 350.1.13.10 [place] 4.2.7.2.686 Professio [phone] nal [facility] Office Building One 2020-12-08 2020-12-08 Outpatient Neeru [facility] [id number] Univers 08:30:00 08:30:00 LEANNA [facility] 2020-12-07 2020-12-07 Patient Marcelo [facility] 1.2.840.114 [id number] Univers 00:00:00 00:00:00 Outreach Mookie [facility] 350.1.13.10 i ty of [facility] 4.2.7.2.686 [place] [facility] [phone] [facility] [address] 2020-12-07 2020-12-07 Patient Marcelo [facility] 1.2.840.114 [id number] 00:00:00 00:00:00 Outreach [facility] 350.1.13.10 [facility] 4.2.7.2.686 PAVILLION [phone] [facility] 2020-12-01 2020-12-01 Outpatient R [address] [facility] [id number] [facility] 09:20:00 09:20:00 LEANNA ubaldo [facility] 2020-11-25 2020-11-25 [facility] 1.2.840.114 [id number] Univers 00:00:00 00:00:00 [facility] 350.1.13.10 it y of [place] 4.2.7.2.686 Toby as Professio [phone] [address] Office [facility] One 2020-11-25 2020-11-25 [facility] 1.2.840.114 [id number] 00:00:00 00:00:00 [facility] 350.1.13.10 [place] 4.2.7.2.686 Professio [phone] [address] One 2020-11-21 2020-11-21 Telephone Otilia, 1.2.840.1 [id number] Methodi 00:00:00 00:00:[address] 3.430.2.7 Hospit a .3.667150 l .8 2020-08-30 2020-08-30 [facility] 1.2.840.114 [id number] Univers 00:00:00 00:00:00 [facility] 350.1.13.10 it y of [place] 4.2.7.2.686 Toby as Professio [phone] [address] Office [facility] One 2020-08-30 2020-08-30 Holly [facility] 1.2.840.114 [id number] 00:00:00 00:00:00 [facility] 350.1.13.10 [place] 4.2.7.2.686 Professio [phone] [place] [address] Office Building One 2020-06-09 2020-06-09 [facility] 1.2.840.114 [id number] Univers 00:00:00 00:00:00 [facility] 350.1.13.10 it y of [place] 4.2.7.2.686 [place] as Professio [phone] [address] Office Building One 2020-06-09 2020-06-09 [facility] 1.2.840.114 [id number] 00:00:00 00:00:00 [facility] 350.1.13.10 [place] 4.2.7.2.686 Professio [phone] [place] [address] Office Building One 2020-05-09 2020-05-09 [facility] 1.2.840.114 [id number] Univers 00:00:00 00:00:00 [facility] 350.1.13.10 it y of [place] 4.2.7.2.686 [place]y as Professio [phone] [address] Office [facility] One 2020-05-09 2020-05-09 [facility] 1.2.840.114 [id number] 202 00:00:00 00:00:00 [facility] 350.1.13.10 [place] 4.2.7.2.686 Professio [phone] [place] [address] Office Building [facility] 2020-04-04 2020-04-04 Outpatient Neeru [facility] [id number] Univers 15:30:00 15:30:00 CONRADO [facility] 2020-04-04 2020-04-04 Outpatient R [facility] [facility] [id number] Univers 13:15:00 13:15:00 CONRADO [facility] 2020-04-04 2020-04-04 Outpatient R [facility] [facility] [id number] Univers 10:30:00 10:30:00 CONRADO [facility] 2020-04-04 2020-04-04 Telemedici [facility] 1.2.840.114 [id number] Univers 09:45:08 10:00:08 ne Visit Conrado Dumont 350.1.13.10 ity of [place]2.7.2.[place] Profess[place] [phone] [address] 2020-04-04 2020-04-04 Telemedici [facility] 1.2.840.114 [id number] 09:45:08 10:00:08 ne Visit Conrado Dumont 350.1.13.10 [place] 4.2.7.2.686 Professio [phone] [address] 2020-04-01 2020-04-01 Outpatient R [facility] [id number] Univers 11:15:00 11:15:00 CONRADO ity of [facility] 2020-03-25 2020-03-25 Pre Visit [facility] 1.2.840.114 [id number] Univers 00:00:00 00:00:00 Outreach Conrado Dumont 350.1.13.10 ity [place] Profess[place] [phone] [address] 2020-03-25 2020-03-25 Pre Visit [facility] 1.2.840.114 [id number] 00:00:00 00:00:00 Outreach Conrado Dumont 350.1.13.10 [place] 4.2.7.2.686 Professio [phone] [address] 2020-03-21 2020-03-21 Patient [facility] 1.2.840.114 [id number] Univers 00:00:00 00:00:00 Secure Msg [facility] 350.1.13.10 ity of [place] 4.2.7.2.686 Toby as Professio [phone] [address] Building One 2020-03-21 2020-03-21 Telephone [facility] 1.2.840.114 [id number] Univers 00:00:00 00:00:00 Conrado Health 350.1.13.10 it y of [place] 4.2.7.2.686 Toby as Professio [phone] Me dical [address] Office Building One 2020-03-21 2020-03-21 Patient PARISH Jhaveri 1.2.840.114 [id number] 00:00:00 00:00:00 Secure Msg Conrado [facility] 350.1.13.10 [place] 4.2.7.2.686 Professio [phone] [place] [address] Office Building One 2020-03-21 2020-03-21 Telephone Shakila [facility] 1.2.840.114 [id number] 00:00:00 00:00:00 Conrado Dinaa 350.1.13.10 [place] 4.2.7.2.686 Professio [phone] [place] [address] Office Building One 2020-02-26 2020-02-26 Patient Milo [facility] 1.2.840.114 [id number] Univers 00:00:00 00:00:00 Secure Msg Cj GARCIAY 350.1.13.10 ity of [facility] 4.[place].2.686 [place] [phone] [address] 2020-02-26 2020-02-26 Patient Milo [facility] 1.2.840.114 [id number] 00:00:00 00:00:00 Secure Msg Cj MADHU 350.1.13.10 [place] 4.2.7.2.686 [phone] [facility] 2018-09-10 2018-09-10 Outpatient [facility] [id number] [place] 00:00:00 00:00:00 Health 2018-09-08 2018-09-08 Outpatient [facility] [id number] [place] 00:00:00 00:00:00 Health 2018-09-05 2018-09-05 Outpatient [facility] [id number] [place] 10:26:16 10:26:16 Health 2018-09-05 2018-09-05 Outpatient [facility] [id number] [place] 03:02:32 03:02:32 Health 2018-09-04 2018-09-04 Emergency [facility] [id number] [place] 19:36:56 19:36:56 Health 2018-09-04 2018-09-04 Inpatient [facility] [id number] [place] 15:51:37 15:51:37 Health Results Test Description Test Time Test Comments Results Result Comments Source MAGNESIUM 2018-02-14 06:17:00 Test Item Value Reference Range Interpretation Comme nts MAGNESIUM (BEAKER) (test code = 627) 2.0 mg/dL 1.6-2.6 BASIC METABOLIC [id number] 06:17:00 Test Item Value Reference Range Interpretation [...] PATIEN TS. CBC W/PLT COUNT & AUTO [id number] 05:34:00 Test Item Value Reference Range Interpretation [...] PERCENT (BEAKER) (test code = 2801) POCT-GLUCOSE [id number] 05:21:00 Test Item Value Reference Range Interpretation Comments POC-GLUCOSE METER 105 mg/dL 70-110 TESTED AT [facility] 6720 (BEAKER) (test code = [place] 1538) [address] POCT-GLUCOSE [id number] 01:28:00 Test Item Value Reference Range Interpretation Comments POC-GLUCOSE METER 108 mg/dL 70-110 TESTED AT [facility] 6720 (BEAKER) (test code = [place] 1538) [address] [id number] 05:19:00 Test Item Value Reference Range Interpretation Comments MAGNESIUM (BEAKER) (test code = 1.8 mg/dL 1.6-2.6 627) BASIC METABOLIC [id number] 05:19:00 Test Item Value Reference Range Interpretation [...] PATIEN TS. CBC W/PLT COUNT & AUTO [id number] 04:56:00 Test Item Value Reference Range Interpretation [...] % 0-1 PERCENT (BEAKER) (test code = 2808) POCT-GLUCOSE [id number] 00:15:00 Test Item Value Reference Range Interpretation Comments POC-GLUCOSE METER 104 mg/dL 70-110 TESTED AT [facility] 6720 (BEAKER) (test code = [place] 1538) 8[address] BLOOD [id number] 11:00:00 Test Item Value Reference Range Interpretation Comments CULTURE (BEAKER) (test No growth in 5 days code = 1095) BLOOD [id number] 11:00:00 Test Item Value Reference Range Interpretation Comments CULTURE (BEAKER) (test No growth in 5 days code = 1095) [id number] 06:39:00 Test Item Value Reference Range Interpretation Comments MAGNESIUM (BEAKER) 2.2 mg/dL 1.6-2.6 Specimen slightly (test code = 627) hemolyzed BASIC METABOLIC [id number] 06:39:00 Test Item Value Reference Range Interpretation [...] PATIEN TS. CBC W/PLT COUNT & AUTO [id number] 06:02:00 Test Item Value Reference Range Interpretation [...] FL, ESOPH, SWALLOW FUNCTION, WITH CINE OR [id number] 13:56:00Reason for exam:->dysphagiaFINAL REPORT INDICATION: Dysphagia. TECHNIQUE: [...] swallowing was acquired. IMPRESSION:Laryngeal penetration. Signed: Mateusz Locketteport Verified Date/Time: 02/11/2018 13:56:12 Reading Location: [facility] B1 C013X Ortho Consult Reading Room POCT-GLUCOSE [id number] 06:21:00 Test Item Value Reference Range Interpretation Comments POC-GLUCOSE METER 119 mg/dL 70-110 H TESTED AT [facility] 6720 (BEAKER) (test code = [place] 1538) [address] [id number] 05:33:00 Test Item Value Reference Range Interpretation Comments MAGNESIUM (BEAKER) (test code = 1.7 mg/dL 1.6-2.6 627) BASIC METABOLIC [id number] 05:33:00 Test Item Value Reference Range Interpretation [...] PATIEN TS. CBC W/PLT COUNT & AUTO [id number] 05:14:00 Test Item Value Reference Range Interpretation [...] PERCENT (BEAKER) (test code = 2801) POCT-GLUCOSE [id number] 23:54:00 Test Item Value Reference Range Interpretation Comments POC-GLUCOSE METER 125 mg/dL 70-110 H TESTED AT [place] [address] [facility] (test code = [place] 1538) [address] POCT-GLUCOSE [id number] 18:08:00 Test Item Value Reference Range Interpretation Comments POC-GLUCOSE METER 106 mg/dL 70-110 TESTED AT [facility] 6720 ([facility]) (test code = [place] 1538) 146[address] POCT-GLUCOSE [id number] 13:26:00 Test Item Value Reference Range Interpretation Comments POC-GLUCOSE METER 122 mg/dL 70-110 H TESTED AT [facility] 6720 (BEAKER) (test code = CRISTINE Siddiqi [place] 1538) [address] POCT-GLUCOSE [id number] 06:11:00 Test Item Value Reference Range Interpretation Comments POC-GLUCOSE METER 121 mg/dL 70-110 H TESTED AT [facility] 6720 (BEAKER) (test code = CRISTINE Siddiqi [place] 1538) 134[address] VANCOMYCIN LEVEL, [id number] 02:13:00 Test Item Value Reference Range Interpretation Comments VANCOMYCIN TROUGH (BEAKER) (test 7.7 ug/mL 10.0-20.0 L code = 522) [id number] 02:00:00 Test Item Value Reference Range Interpretation Comments MAGNESIUM (BEAKER) (test code = 1.7 mg/dL 1.6-2.6 627) BASIC METABOLIC [id number] 02:00:00 Test Item Value Reference Range Interpretation [...] PATIEN TS. CBC W/PLT COUNT & AUTO [id number] 01:46:00 Test Item Value Reference Range Interpretation [...] PERCENT (BEAKER) (test code = 2801) POCT-GLUCOSE [id number] 00:38:00 Test Item Value Reference Range Interpretation Comments POC-GLUCOSE METER 116 mg/dL 70-110 H TESTED AT [facility] 67 ([facility]) (test code = [place] 1538) [address] POCT-GLUCOSE [id number] 18:06:00 Test Item Value Reference Range Interpretation Comments POC-GLUCOSE METER 118 mg/dL 70-110 H TESTED AT [place] [address] ([facility]) (test code = [place] 1538) [address] POCT-GLUCOSE [id number] 12:07:00 Test Item Value Reference Range Interpretation Comments POC-GLUCOSE METER 126 mg/dL 70-110 H TESTED AT [place] [address] ([facility]) (test code = [place] 1538) [address] URINE [id number] 10:54:00 Test Item Value Reference Range Interpretation Comments CULTURE ([facility]) (test CITROBACTER A >100, 000 col/mL code = 1095) WERKMANNI Citrobacter werkmanni Amikacin (test code = S 1) Aztreonam [...] = 47) CBC W/PLT COUNT & AUTO [id number] 10:20:00 Test Item Value Reference Range Interpretation Comments WHITE BLOOD CELL COUNT (AKER) 10.1 K/ L 3.5-10.5 (test code = 775) RED BLOOD CELL COUNT (AKER) 3.97 M/ L 4.63-6.08 L (test code = 761) HEMOGLOBIN (BEAKER) (test code = 12.5 GM/DL 13.7-17.5 L 410) HEMATOCRIT (AKER) (test code = 38.8 % 40.1-51.0 L [...] % 0-1 PERCENT (BEAKER) (test code = 280) [id number] 09:52:00 Test Item Value Reference Range Interpretation Comments MAGNESIUM (BEAKER) (test code = 1.6 mg/dL 1.6-2.6 627) BASIC METABOLIC [id number] 09:52:00 Test Item Value Reference Range Interpretation [...] NOT APPLICABLE FOR DIALYSIS PATIEN TS. POCT-GLUCOSE [id number] 06:02:00 Test Item Value Reference Range Interpretation Comments POC-GLUCOSE METER 117 mg/dL 70-110 H TESTED AT [facility] 6720 ([facility]) (test code = [facility] 1538) 9[address] SPUTUM CULTURE + GRAM [id number] 13:31:00 Test Item Value Reference Interpretation Comments Range CULTURE (AKER) STAPHYLOCOCCUS A 3+ Staphy lococcus (test code [...] 0-5 epithelial (BEAKER) (test code = cells 164994) GRAM STAIN RESULT 4+ gram negative (BEAKER) (test code = coccobacilli 606811) GRAM STAIN RESULT 4+ gram positive (BEAKER) (test code = cocci in chains, 571218) pairs and clusters 3+ Normal respiratory carla presentPOCT-GLUCOSE [id number] 12:11:00 Test Item Value Reference Range Interpretation Comments POC-GLUCOSE METER 130 mg/dL 70-110 H TESTED AT [facility] 6720 (BEAKER) (test code = [place] 1538) [address] CBC W/PLT COUNT & AUTO [id number] 11:19:00 Test Item Value Reference Range Interpretation [...] (test code = Present 2156) VANCOMYCIN LEVEL, [id number] 10:54:00 Test Item Value Reference Range Interpretation Comments VANCOMYCIN TROUGH (BEAKER) (test 4.9 ug/mL 10.0-20.0 L code = 522) [id number] 05:55:00 Test Item Value Reference Range Interpretation Comments MAGNESIUM (BEAKER) 2.1 mg/dL 1.6-2.6 Specimen slightly (test code = 627) hemolyzed BASIC METABOLIC [id number] 05:55:00 Test Item Value Reference Range Interpretation [...] mg/dL 8.4-10.2 (test code = 697) EGFR ([facility]) (test 79 mL/min/1.73 ESTIMA BALJEET GFR IS code = 1092) sq m NOT ACCURATE CREATININE CLEARANCE IN PREDICTING GLOMERULAR FILTRATION RATE . ESTIMATED GFR I S NOT APPLICABLE FOR DIALYSIS PATIEN TS. POCT-GLUCOSE [id number] 05:54:00 Test Item Value Reference Range Interpretation Comments POC-GLUCOSE METER 142 mg/dL 70-110 H TESTED AT [place] [address] ([facility]) (test code = [facility] 1538) 32952 POCT-GLUCOSE [id number] 01:01:00 Test Item Value Reference Range Interpretation Comments POC-GLUCOSE METER 128 mg/dL 70-110 H TESTED AT [place] [address] ([facility]) (test code = [facility] 1538) 99249 POCT-GLUCOSE [id number] 17:53:00 Test Item Value Reference Range Interpretation Comments POC-GLUCOSE METER 123 mg/dL 70-110 H TESTED AT [place] [address] ([facility]) (test code = [facility] 1538) 97748 POCT-GLUCOSE [id number] 12:36:00 Test Item Value Reference Range Interpretation Comments POC-GLUCOSE METER 136 mg/dL 70-110 H TESTED AT [place] [address] ([facility]) (test code = [facility] 1538) [address] CBC W/PLT COUNT & AUTO [id number] 11:39:00 Test Item Value Reference Range Interpretation Comments WHITE BLOOD CELL COUNT ([facility]) 14.1 K/ L 3.5-10.5 H (test code = 775) RED BLOOD CELL COUNT ([facility]) 4.59 M/ L 4.63-6.08 L (test code = 761) HEMOGLOBIN (BEAKER) (test code = 14.7 GM/DL 13.7-17.5 410) HEMATOCRIT ([facility]) (test code = 43.4 % 40.1-51.0 411) MEAN CORPUSCULAR VOLUME ([facility]) 94.6 fL 79.0-92.2 H (test code = 753) MEAN CORPUSCULAR HEMOGLOBIN 32.0 pg 25.7-32.2 (AKER) (test code = 751) MEAN CORPUSCULAR HEMOGLOBIN [...] (BEAKER) (test code = Normal 762) POCT-GLUCOSE [id number] 07:00:00 Test Item Value Reference Range Interpretation Comments POC-GLUCOSE METER 101 mg/dL 70-110 TESTED AT [facility] 6720 (BEAKER) (test code = [facility] 1538) [address] BASIC METABOLIC [id number] 06:30:00 Test Item Value Reference Range Interpretation [...] FOR DIALYSIS PATIEN TS. Specimen slightly ictericPROTHROMBIN [id number] 05:52:00 Test Item Value Reference Range Interpretation Comments PROTIME (BEAKER) (test code = 17.4 seconds 11.7-14.7 H 759) INR (BEAKER) (test code = 370) 1.4 <=5.9 RECOMMENDED COUMADIN/WARFARIN INR THERAPY RANGESSTANDARD DOSE: 2.0 - 3.0 Includes: PROPHYLAXIS for venous thrombosis, systemic embolization; TREATMENT for venous thrombosis and/or pulmonary embolus.HIGH RISK: Target INR is 2.5-3.5 for patients with mechanical heart valves.[id number] 05:52:00 Test Item Value Reference Range Interpretation Comments PARTIAL THROMBOPLASTIN TIME 32.3 seconds 22.5-36.0 (BEAKER) (test code = 760) URINALYSIS W/ [id number] 00:07:00 Test Item Value Reference Range Interpretation [...] Rare SOURCE(BEAKER) (test code = 2795) POCT-GLUCOSE [id number] 23:07:00 Test Item Value Reference Range Interpretation Comments POC-GLUCOSE METER 109 mg/dL 70-110 TESTED AT [facility] 6720 (BEAKER) (test code = WARRENSILVA Siddiqi [facility] 1538) [address] RAD, CHEST, 1 VIEW, NON [id number] 21:27:00Reason for exam:->fever, tachypnea, high risk of aspirationShould this be performed at the bedside ?->YesFINAL REPORT RAD, CHEST, 1 VIEW, NON DEPT INDICATION: fever, tachypnea, high risk of aspiration COMPARISON: February 01, 2018 FINDINGS: Portable frontal view of the chest. IMPRESSION:Support Lines: Endotracheal tube is been removed. The [...] MDReport Verified Date/Time: 02/06/2018 21:27:48 Reading Location: [facility] C013Y CT Body Reading Room POCT-GLUCOSE [id number] 17:40:00 Test Item Value Reference Range Interpretation Comments POC-GLUCOSE METER 108 mg/dL 70-110 TESTED AT [facility] 6720 (BEAKER) (test code = CRISTINE Siddiqi [place] 1538) [address] RAD, ABDOMEN/KUB, 1 VIEW [id number] 17:35:00Reason for exam:->check corpak placementFINAL REPORT AP abdomen HISTORY: Feeding tube COMPARISON: 02/04/2018 IMPRESSION:Feeding tube advanced, remaining along the greater curvature the stomach, not transpyloric. Signed: Christiano Granados MDReport Verified Date/Time: 02/06/2018 17:35:54 Reading Location: [facility] ReadingRoom POCT-GLUCOSE [id number] 11:47:00 Test Item Value Reference Range Interpretation Comments POC-GLUCOSE METER 108 mg/dL 70-110 TESTED AT [facility] 6720 (BEAKER) (test code = CRISTINE Siddiqi [place] 1538) [address] [id number] 06:20:00 Test Item Value Reference Range Interpretation Comments PHOSPHORUS (BEAKER) (test code = 3.2 mg/dL 2.3-4.7 604) [id number] 06:20:00 Test Item Value Reference Range Interpretation Comments MAGNESIUM (BEAKER) (test code = 1.9 mg/dL 1.6-2.6 627) BASIC METABOLIC [id number] 06:20:00 Test Item Value Reference Range Interpretation [...] NOT APPLICABLE FOR DIALYSIS PATIEN TS. POCT-GLUCOSE [id number] 06:18:00 Test Item Value Reference Range Interpretation Comments POC-GLUCOSE METER 117 mg/dL 70-110 H TESTED AT [facility] 6720 (AKER) (test code = CRISTINE [place] 1538) [address] CBC W/PLT COUNT & AUTO [id number] 06:00:00 Test Item Value Reference Range Interpretation [...] 417) IMMATURE GRANULOCYTES-RELATIVE 0 % 0-1 PERCENT (AKER) (test code = 2801) POCT-GLUCOSE [id number] 00:52:00 Test Item Value Reference Range Interpretation Comments POC-GLUCOSE METER 129 mg/dL 70-110 H TESTED AT [place] [address] ([facility]) (test code = [facility] [employer] [facility] 1538) [address] PROTHROMBIN [id number] 00:32:00 Test Item Value Reference Range Interpretation Comments PROTIME ([facility]) (test code = 15.2 seconds 11.7-14.7 H 759) INR ([facility]) (test code = 370) 1.2 <=5.9 RECOMMENDED COUMADIN/WARFARIN INR THERAPY RANGESSTANDARD DOSE: 2.0 - 3.0 Includes: PROPHYLAXIS for venous thrombosis, systemic embolization; TREATMENT for venous thrombosis and/or pulmonary embolus.HIGH RISK: Target INR is 2.5-3.5 for patients with mechanical heart valves.POCT-GLUCOSE [id number] 00:25:00 Test Item Value Reference Range Interpretation Comments POC-GLUCOSE METER 113 mg/dL 70-110 H TESTED AT [place] [address] ([facility]) (test code = [employer] [place] 1538) [address] POCT-GLUCOSE [id number] 18:42:00 Test Item Value Reference Range Interpretation Comments POC-GLUCOSE METER 131 mg/dL 70-110 H TESTED AT [place] [address] ([facility]) (test code = [employer] [place] 1538) [address] BASIC METABOLIC [id number] 15:45:00 Test Item Value Reference Range Interpretation [...] NOT APPLICABLE FOR DIALYSIS PATIEN TS. POCT-GLUCOSE [id number] 12:52:00 Test Item Value Reference Range Interpretation Comments POC-GLUCOSE METER 101 mg/dL 70-110 TESTED AT [facility] 6720 (BEAKER) (test code = CRISTINE [place] 1538) [address] BASIC METABOLIC [id number] 11:57:00 Test Item Value Reference Range Interpretation [...] S NOT APPLICABLE FOR DIALYSIS PATIEN TS. [id number] 07:51:00 Test Item Value Reference Range Interpretation Comments PHOSPHORUS (BEAKER) (test code = 2.9 mg/dL 2.3-4.7 604) [id number] 07:51:00 Test Item Value Reference Range Interpretation Comments MAGNESIUM (BEAKER) (test code = 2.1 mg/dL 1.6-2.6 627) POCT-GLUCOSE [id number] 05:53:00 Test Item Value Reference Range Interpretation Comments POC-GLUCOSE METER 114 mg/dL 70-110 H TESTED AT [facility] 6720 (BEAKER) (test code = CRISTINE Siddiqi [place] 1538) [address] CBC W/PLT COUNT & AUTO [id number] 04:49:00 Test Item Value Reference Range Interpretation [...] PERCENT (BEAKER) (test code = 2801) POCT-GLUCOSE [id number] 00:02:00 Test Item Value Reference Range Interpretation Comments POC-GLUCOSE METER 115 mg/dL 70-110 H TESTED AT [facility] 6720 (BEAKER) (test code = CRISTINE [place] 1538) [address] POCT-GLUCOSE [id number] 19:23:00 Test Item Value Reference Range Interpretation Comments POC-GLUCOSE METER 108 mg/dL 70-110 TESTED AT [facility] 6720 ([facility]) (test code = CRISTINE [place] 1538) [address] [id number] 18:25:00 Test Item Value Reference Range Interpretation [...] after PO replacement completedRAD, ABDOMEN/KUB, 1 VIEW [id number] 13:13:00Reason for exam:->corpak Should this be performed at the bedside?->YesFINAL REPORT AP abdomen HISTORY: Feeding tube COMPARISON: None IMPRESSION:Feeding tube present projecting within the stomach. Bowel gas pattern not well assessed but grossly nonobstructive. Signed: Christiano Granados MDReport Verified Date/Time: 02/04/2018 13:13:34 Reading Location: [facility] POCT-GLUCOSE [id number] 12:24:00 Test Item Value Reference Range Interpretation Comments POC-GLUCOSE METER 103 mg/dL 70-110 TESTED AT [place] [address] (BEAKER) (test code = [facility] 1538) [address] POCT-GLUCOSE [id number] 06:15:00 Test Item Value Reference Range Interpretation Comments POC-GLUCOSE METER 95 mg/dL 70-110 TESTED AT [place] [address] (BEAKER) (test code = [facility] [address] 1538) [id number] 03:37:00 Test Item Value Reference Range Interpretation Comments PHOSPHORUS (BEAKER) (test code = 2.2 mg/dL 2.3-4.7 L 604) [id number] 03:37:00 Test Item Value Reference Range Interpretation Comments MAGNESIUM (BEAKER) (test code = 1.7 mg/dL 1.6-2.6 627) BASIC METABOLIC [id number] 03:37:00 Test Item Value Reference Range Interpretation [...] PATIEN TS. CBC W/PLT COUNT & AUTO [id number] 03:36:00 Test Item Value Reference Range Interpretation [...] PERCENT (BEAKER) (test code = 2801) POCT-GLUCOSE [id number] 00:31:00 Test Item Value Reference Range Interpretation Comments POC-GLUCOSE METER 111 mg/dL 70-110 H TESTED AT [place] [address] ([facility]) (test code = [facility] 1538) [address] POCT-GLUCOSE [id number] 18:42:00 Test Item Value Reference Range Interpretation Comments POC-GLUCOSE METER 91 mg/dL 70-110 TESTED AT [place] [address] ([facility]) (test code = [facility] [address] 1538) POCT-GLUCOSE [id number] 15:25:00 Test Item Value Reference Range Interpretation Comments POC-GLUCOSE METER 92 mg/dL 70-110 TESTED AT [place] [address] ([facility]) (test code = [facility] [address] 1538) CT BRAIN WITHOUT IV CONTRAST - [id number] 13:09:00Reason for exam:- >follow up EVD removalFINAL [...] head 02/01/2018, CTA 01/31/2018 FINDINGS:Residual left posterior cerebralparenchyma hemorrhage is stable in volume. Intraventricular rupture [...] mass effect. An enteric tube is in placewith mild sinus mucosal disease and small volume mastoid air cell fluid. The globes remain proptotic. There is scalp surgical changes with a small subgaleal collection overlying the craniotomy site andincreased scalp edema. IMPRESSION: Since 02/01/2018, partial resorption of subarachnoid and intraventricular blood and stable mild hydrocephalus post EVD removal. Residual left cerebral parenchymal hemorrhage, edema, and mass effect are stable. Signed: Rosalee Rojas MDReport Verified Date/Time: 02/03/2018 13:09:24 Reading Location: [address] Neuro Reading Room HEPATITIS PANEL, [id number] 06:20:00 Test Item Value Reference Range Interpretation Comments HEPATITIS A IGM ANTIBODY (BEAKER) Nonreactive Nonreactive (test code = 498) HEPATITIS B CORE IGM ANTIBODY Nonreactive Nonreactive (BEAKER) (test code = 645) HEPATITIS C ANTIBODY (BEAKER) Reactive Nonreactive A (test code = 367) HEPATITIS B SURFACE ANTIGEN (2) Nonreactive Nonreactive (BEAKER) (test code = 2585) [id number] 04:57:00 Test Item Value Reference Range Interpretation Comments MAGNESIUM (BEAKER) (test code = 1.9 mg/dL 1.6-2.6 627) BASIC METABOLIC [id number] 04:57:00 Test Item Value Reference Range Interpretation [...] APPLICABLE FOR DIALYSIS PATIEN TS. HEPATIC FUNCTION [id number] 04:57:00 Test Item Value Reference Range Interpretation [...] (test code = 16 U/L 6-55 347) [id number] 04:56:00 Test Item Value Reference Range Interpretation Comments PHOSPHORUS (BEAKER) (test code = 1.7 mg/dL 2.3-4.7 L 604) CBC W/PLT COUNT & AUTO [id number] 03:59:00 Test Item Value Reference Range Interpretation [...] PERCENT (BEAKER) (test code = 2801) POCT-GLUCOSE [id number] 01:18:00 Test Item Value Reference Range Interpretation Comments POC-GLUCOSE METER 103 mg/dL 70-110 TESTED AT [place] [address] ([facility]) (test code = [facility] 1538) [address] POCT-GLUCOSE [id number] 19:16:00 Test Item Value Reference Range Interpretation Comments POC-GLUCOSE METER 114 mg/dL 70-110 H TESTED AT [place] [id number] ([facility]) (test code = [facility] 1538) [address] POCT-GLUCOSE [id number] 13:29:00 Test Item Value Reference Range Interpretation Comments POC-GLUCOSE METER 107 mg/dL 70-110 TESTED AT [facility] 6720 (BEAKER) (test code = CRISTINE Siddiqi [facility] 1538) [address] SPUTUM CULTURE + GRAM [id number] 10:09:00 Test Item Value Reference Range Interpretation Comments CULTURE (BEAKER) 1+ Normal respiratory (test code = 1095) carla present GRAM STAIN RESULT 1+ WBCs (BEAKER) (test code = 1123) GRAM STAIN RESULT 2+ gram positive cocci (BEAKER) (test code = in pairs 83486) GRAM STAIN RESULT 2+ gram positive cocci (BEAKER) (test code = in chains 58078) GRAM STAIN RESULT 0-5 epithelial cells (BEAKER) (test code = 946223) CBC W/PLT COUNT & AUTO [id number] 06:44:00 Test Item Value Reference Range Interpretation [...] PERCENT (BEAKER) (test code = 2801) POCT-GLUCOSE [id number] 06:25:00 Test Item Value Reference Range Interpretation Comments POC-GLUCOSE METER 115 mg/dL 70-110 H TESTED AT [facility] 6720 (BEAKER) (test code = CRISTINE Siddiqi [place] 1538) [address] BLOOD GAS, [id number] 06:22:00 Test Item Value Reference Range Interpretation [...] (BEAKER) (test code = 1819) 21.0 % [id number] 05:44:00 Test Item Value Reference Range Interpretation Comments PHOSPHORUS (BEAKER) (test code = 1.7 mg/dL 2.3-4.7 L 604) [id number] 05:44:00 Test Item Value Reference Range Interpretation Comments MAGNESIUM (BEAKER) (test code = 1.9 mg/dL 1.6-2.6 627) BASIC METABOLIC [id number] 05:44:00 Test Item Value Reference Range Interpretation [...] NOT APPLICABLE FOR DIALYSIS PATIEN TS. POCT-GLUCOSE [id number] 00:49:00 Test Item Value Reference Range Interpretation Comments POC-GLUCOSE METER 124 mg/dL 70-110 H TESTED AT [place] [address] ([facility]) (test code = CRISTINE [place] 1538) [address] POCT-GLUCOSE [id number] 18:34:00 Test Item Value Reference Range Interpretation Comments POC-GLUCOSE METER 144 mg/dL 70-110 H TESTED AT [place] [address] [facility] (test code = CRISTINE [place] 1538) [address] POCT-GLUCOSE [id number] 12:39:00 Test Item Value Reference Range Interpretation Comments POC-GLUCOSE METER 124 mg/dL 70-110 H TESTED AT [place] [address] ([facility]) (test code = CRISTINE Siddiqi [place] 1538) [address] BLOOD GAS, [id number] 11:19:00 Test Item Value Reference Range Interpretation [...] % CT BRAIN WITHOUT IV CONTRAST - [id number] 09:26:00Reason for exam:- >ICH with IVHFINAL REPORT CT head without contrast 02/01/2018 9:25 AM CLINICAL HISTORY: ICH with IVH TECHNIQUE: Contiguous axial images through the [...] large volume left posterior hemispheric intraparenchymal hematoma. There is stable small volume subarachnoid hemorrhage. There is trace intraventricular hemorrhage, decreased when compared to the prior examination. Hyperdensity along the left falx cerebri may reflect trace subdural hemorrhage. There is been resolution of hydrocephalus status post drainage catheter placement.There is small volume pneumocephalus without concerning mass effect. The paranasal sinuses and tympanomastoid cavities are well aerated. There is no craniotomy offset or concerning subgaleal collection. IMPRESSION: Improved intracranial appearance. Signed: Zach Wiseman Verified Date/Time: 0 02/01/2018 09:26:57 Reading Location: [address] Neuro Reading Room GLOBIN [id number] 08:20:00 Test Item Value Reference Range Interpretation Comments HEMOGLOBIN A1C (BEAKER) (test code = 6.1 % 4.3-6.1 368) RAD, CHEST, 1 VIEW, NON [id number] 07:38:00Reason for exam:- >intubationShould this be performed [...] vasculature congestion without remarkable peripheral edema. Signed: Zach Wisemanort Verified Date/Time: 02/01/2018 07:38:36 Reading Location: [address] Neuro Reading Room Electro nically signed by: ZACH WISEMAN M.D. on 02/01/2018 07:38 AMPOCT-GLUCOSE [id number] 06:57:00 Test Item Value Reference Range Interpretation Comments POC-GLUCOSE METER 123 mg/dL 70-110 H TESTED AT [facility] 6720 (BEAKER) (test code = CRISTINE Siddiqi [facility] 1538) [address] BLOOD GAS, [id number] 04:33:00 Test Item Value Reference Range Interpretation [...] (BEAKER) (test code = 1819) 60.0 % [id number] 04:18:00 Test Item Value Reference Range Interpretation Comments PHOSPHORUS (BEAKER) (test code = 3.4 mg/dL 2.3-4.7 604) [id number] 04:18:00 Test Item Value Reference Range Interpretation Comments MAGNESIUM (BEAKER) (test code = 1.2 mg/dL 1.6-2.6 L 627) BASIC METABOLIC [id number] 04:18:00 Test Item Value Reference Range Interpretation [...] PATIEN TS. CBC W/PLT COUNT & AUTO [id number] 04:06:00 Test Item Value Reference Range Interpretation [...] 0-1 PERCENT (BEAKER) (test code = 2801) [id number] 02:07:00 Test Item Value Reference Range Interpretation Comments RPR SCREEN (BEAKER) (test code = Nonreactive Nonreactive 420) HEPATIC FUNCTION [id number] 22:17:00 Test Item Value Reference Range Interpretation [...] = 19 U/L 6-55 347) CT, CTANGIO [id number] 21:00:00FINAL REPORT CTA carotids and brain 01/31/2018 [...] both carotid siphons, without remarkable branch vessel stenosis.There is no evident aneurysm or arteriovenous malformation. The visualized soft tissue is without worrisome finding. There are multilevel degenerative changes in the cervical spine, without high-grade central canal stenosis. Visualized support catheters are in satisfactory radiographic position. IMPRESSION:1. Large volume left posterior hemispheric intraparenchymal hematoma with associated small volum e intraventricular and subarachnoid hemorrhage and resultant mild obstructive hydrocephalus.2. No evident aneurysm or arteriovenous malformation.3. Mild intracranialAtherosclerotic vascular disease.4. Spondylosis. Signed: Seipel, Zach MDReport Verified Date/Time: 01/31/2018 21:00:54 Reading Location: [facility] Radiology Reading Room CT, CAROTID, [id number] 21:00:00FINAL REPORT CTA carotids and brain 01/31/2018 8:54 PM CLINICAL INDICATION: Intracranial hemorrhage COMPARISON: None available TECHNIQUE: Noncontrast axial CT images of the head were obtained. Subsequently, axial CT angiographic images of the upper chest, neck, and head were obtained, from which three-dimensional reconstructed images were created. Additional imaging series were created on an independent workstation using maximum intensity projection and volume rendered technique.This examination was performed according to our departmental [...] cervical internal carotid artery stenosis (NASCET criteria). Intrac ranially, there is mild stenosis in both carotid siphons, without remarkable branch vessel stenosis.There is no evident aneurysm or arteriovenous malformation. The visualized soft tissue is without worrisome finding. There are multilevel degenerative changes in the cervical spine, without high-grade c entral canal stenosis. Visualized support catheters are in satisfactory radiographic position. IMPRESSION:1. Large volume left posterior hemispheric intraparenchymal hematoma with associated small volume intraventricular and subarachnoid hemorrhage and resultant mild obstructive hydrocephalus.2. No dennis dent aneurysm or arteriovenous malformation.3. Mild intracranialAtherosclerotic vascular disease.4. Spondylosis. Signed: Zach Wiseman Verified Date/Time: 01/31/2018 21:00:54 Reading Location: [facility] Radiology Reading Room /FREE T4 IF [id number] 20:05:00 Test Item Value Reference Range Interpretation Comments THYROID STIMULATING HORMONE 2.07 uIU/mL 0.35-4.94 (BEAKER) (test code = 772) VITAMIN B12 AND [id number] 20:05:00 Test Item Value Reference Range Interpretation Comments VITAMIN B12 (BEAKER) (test code = 340 pg/mL 213-816 774) FOLATE (BEAKER) (test code = 362) 11.0 ng/mL >=7.0 PROTHROMBIN [id number] 19:56:00 Test Item Value Reference Range Interpretation Comments PROTIME (BEAKER) (test code = 14.1 seconds 11.7-14.7 759) INR (BEAKER) (test code = 370) 1.1 <=5.9 RECOMMENDED COUMADIN/WARFARIN INR THERAPY RANGESSTANDARD DOSE: 2.0 - 3.0 Includes: PROPHYLAXIS for venous thrombosis, systemic embolization; TREATMENT for venous thrombosis and/or pulmonary embolus.HIGH RISK: Target INR is 2.5-3.5 for patients with mechanical heart valves.[id number] 19:56:00 Test Item Value Reference Range Interpretation Comments PARTIAL THROMBOPLASTIN TIME 31.5 seconds 22.5-36.0 (BEAKER) (test code = 760) CBC W/PLT COUNT & AUTO [id number] 19:45:00 Test Item Value Reference Range Interpretation [...] (BEAKER) (test code = 2801) COMPREHENSIVE METABOLIC [id number] 19:30:00 Test Item Value Reference Range Interpretation [...] S NOT APPLICABLE FOR DIALYSIS PATIEN TS. [id number] 19:30:00 Test Item Value Reference Range Interpretation Comments MAGNESIUM (BEAKER) 1.6 mg/dL 1.6-2.6 Specimen slightly (test code = 627) hemolyzed LIPID [id number] 19:30:00 Test Item Value Reference Range Interpretation Comments TRIGLYCERIDES (BEAKER) 85 mg/dL Speci men slightly (test code = 540) hemolyzed CHOLESTEROL (BEAKER) 174 mg/dL Specime n slightly (test code = 631) hemolyzed HDL CHOLESTEROL (BEAKER) 56 mg/dL (test code = 976) LDL CHOLESTEROL 101 mg/dL CALCULATED (BEAKER) (test code = 633) Triglyceride Reference Range: Low Risk <150 Borderline 150-199 High Risk 200- 499 Very High Risk >=500Cholesterol Reference Range: Low Risk <200 Borderline 200-239 High Risk >240HDL Cholesterol Reference Range: Low Risk >=60 High Risk <40LDL Cholesterol Reference Range: Optimal <100 Near Optimal 100-129 Borderline 130-159 High 160-189 Very High >=190BLOOD GAS, [id number] 19:28:00 Test Item Value Reference Range Interpretation [...] = 1818) RAD, CHEST, 1 VIEW, NON [id number] 17:49:00Post-intubationReason for exam:- >post intubationShould this be [...] MDReport Verified Date/Time: 01/31/2018 17:49:49 Reading Location: [facility] B1 C013W Consult Reading Room
[2023-01-10 12:01] LABS: Absolute Lymphocytes (CBC) 1.3 K/uL (0.7-4.9); Lymphocytes % 18.9 % (15.3-44.8); MCV 96.6 fL (80-100); MPV 8.3 fL (7.6-11.3); RBC Red Blood Cell Count 5.79 M/uL (4.33-5.43)
--- NOTE | 2023-01-10 12:03 | RAD REPORT ---
EXAM DESCRIPTION: Gavi Single View01/10/2023 11:56 am CLINICAL HISTORY: Chest pain COMPARISON: 2020 FINDINGS: The lungs appear clear of acute infiltrate. The heart is normal size IMPRESSION: No acute abnormalities displayed
[2023-01-10 12:07] LABS: Protime INR 1.01
[2023-01-10 12:16] LABS: Troponin High Sensitivity 4.9 pg/mL (<58.9)
--- NOTE | 2023-01-10 12:22 | RAD REPORT ---
EXAM DESCRIPTION: CT - Head Brain Wo Cont - 01/10/2023 12:00 pm CLINICAL HISTORY: Vision changes COMPARISON: 2020 TECHNIQUE: Computed axial tomography of the head was obtained. IV contrast was not requested. All CT scans are performed using dose optimization technique as appropriate and may include automated exposure control or mA/KV adjustment according to patient size. FINDINGS: Postsurgical changes of craniotomy. An acute intracranial bleed is not seen Cystic encephalomalacia left occipital parietal lobe unchanged. Chronic adjacent calcification unchan ged. Unchanged dilatation left lateral ventricle No extra-axial fluid collection is noted. Mild to moderate low-density areas within periventricular, deep and subcortical white matter likely r epresent ischemic changes secondary to small vessel disease. Fluid within the sinuses/ mastoids is not seen. IMPRESSION: No acute intracranial abnormality is seen If patient's symptoms persist MRI of the brain would be recommended
--- NOTE | 2023-01-10 12:51 | ER ---
Nurse's Notes [facility] Name: Edmund Caballero Age: 72 yrs Sex: Male : 1950 Arrival Date: 01/10/2023 Time: 11:25 Bed 13 Private MD: Diagnosis: Paresthesia of skin;Low vision, one eye, unspecified eye;Essential (primary) hypertension Presentation: 01/10 11:37 Chief complaint: Patient states: tingling/ mild pain down bilateral arms, across back ss and chest that began 2-3 days ago. 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 Coronavirus screen: Client denies travel out of the [place] in the last 14 days. Ebola Screen: Patient denies exposure to infectious person. Patient denies travel to an Ebola-affected area in the 21 days before illness onset. Initial Sepsis Screen: Does the patient meet any 2 criteria? No. Patient's initial sepsis screen is negative. Does the patient have a suspected source of infection? No. Patient's initial sepsis screen is negative. Risk Assessment: Do you want to hurt yourself or someone else? Patient reports no desire to harm self or others. Onset of symptoms was January 07, 2023. 11:37 Method Of Arrival: Ambulatory ss 11:37 Acuity: KIRK 3 ss Historical: - Allergies: 11:39 NKA; ss - Home Meds: 11:39 Lisinopril Oral 10 mg daily [Active]; Metoprolol 50 mg 1 tab PO DAILY [Active]; ss Gabapentin 300 mg every night [Active]; Nexium Oral [Active]; - PMHx: 11:39 CVA; hemorrhagic, behavioral deficits/ global aphasia; Hernia; High Cholesterol; ss Hypertension; - PSHx: 11:39 Hernia sx; ss - Immunization history:: Client reports receiving the 2nd dose of the Covid vaccine. - Social history:: Smoking status: Patient reports the use of cigarette tobacco products, cigars. Screenin:41 Abuse screen: Denies threats or abuse. Nutritional screening: No deficits noted. ap3 Tuberculosis screening: No symptoms or risk factors identified. 13:00 [facility] ED Fall Risk Assessment (Adult) History of falling in the last 3 months, ko1 including since admission No falls in past 3 months (0 pts) Confusion or Disorientation No (0 pts) Intoxicated or Sedated No (0 pts) Impaired Gait No (0 pts) Mobility Assist Device Used No (0 pt) Altered Elimination No (0 pt) Score/Fall Risk Level 0 - 2 = Low Risk Oriented to surroundings, Maintained a safe environment, Educated pt \T\ family on fall prevention, incl call for assistance when getting out of bed, Assessed \T\ reinforced patient's understanding of fall precautions, Provided non-skid footwear, Hourly rounding (assess needs \T\ fall precautionary measures) done, Used ambulatory aids as needed (educated on \T\ assisted with), Used gait belt as appropriate. Assessment: 11:45 General: Appears in no apparent distress. comfortable, Behavior is calm, cooperative, ko1 appropriate for age. Pain: Denies pain. Neuro: Reports blurred vision. 11:45 Cardiovascular: No deficits noted. Respiratory: No deficits noted. GI: No deficits ko1 noted. : No deficits noted. EENT: Reports blurred vision. Derm: No deficits noted. Musculoskeletal: No deficits noted. No signs and/or symptoms reported regarding the musculoskeletal system. Vital Signs: 11:37 BP 190 / 94; Pulse 79; Resp 18; Temp 98.3(O); Pulse Ox 100% on R/A; Weight 72.57 kg; ss Height 5 ft. 9 in. (175.26 cm); 12:15 BP 166 / 83; Pulse 69; Resp 18; Pulse Ox 99% ; ko1 12:30 BP 145 / 76; Pulse 64; Pulse Ox 96% ; ko1 13:00 BP 143 / 79; Pulse 63; Pulse Ox 97% ; ko1 11:37 Body Mass Index 23.63 (72.57 kg, 175.26 cm) ED Course: 11:25 Patient arrived in ED. as 11:28 Ariana Macdonald, AUNDREA is Primary Nurse. ko1 11:30 Sesar Perdue DO is Attending Physician. ms3 11:39 Triage completed. ss 11:39 Arm band placed on right wrist. ss 11:41 Patient has correct armband on for positive identification. Bed in low position. Call ap3 light in reach. Side rails up X2. Adult w/ patient. monitoring and evaluation advisor on. Pulse ox on. NIBP on. Door closed. Noise minimized. 11:41 Inserted saline lock: 20 gauge in right antecubital area, using aseptic technique. ap3 Blood collected. 11:52 Ptt, Activated Sent. ko1 11:52 Protime (+inr) Sent. ko1 11:52 High Sensitivity Troponin Sent. ko1 11:52 CBC with Diff Sent. ko1 11:52 Basic Metabolic Panel Sent. ko1 12:49 Simone Peacock MD is Referral Physician. ms3 13:00 No provider procedures requiring assistance completed. ko1 13:34 IV discontinued, intact, bleeding controlled, No redness/swelling at site. Pressure ko1 dressing applied. Administered Medications: No medications were administered Medication: 13:00 VIS not applicable for this client. ko1 Outcome: 12:50 Discharge ordered by . ms3 13:34 Discharged to home ambulatory, with family. ko1 13:34 Condition: improved 13:34 Discharge instructions given to patient, family, Instructed on discharge instructions, follow up and referral plans. Demonstrated understanding of instructions, follow-up care, medications. 13:42 Patient left the ED. ko1 Signatures: Radha Castro Shelby, RN RN Kassidy De La Rosa RN RN ap3 Sesar Perdue DO DO ms3 Ariana Macdonald, AUNDREA RN ko1
--- NOTE | 2023-01-10 12:51 | EDPHYS ---
Physician Documentation [facility] Name: Edmund Caballero Age: 72 yrs Sex: Male : 1950 Arrival Date: 01/10/2023 Time: 11:25 Bed 13 Private MD: ED Physician Sesar Perdue HPI: 01/10 13:39 This 72 yrs old Male presents to ER via Ambulatory with complaints of Blurred Vision, ms3 Numbness, chest discomfort. 13:39 72-year-old male with past medical history of intracranial hemorrhage, hyperlipidemia, ms3 hypertension presents for tingling of bilateral arms and chest for 3 days. Patient states he has right-sided hemianopsia after his intracranial hemorrhage. Patient denies chest pain at this time. Patient denies alleviating or inciting factors.. Historical: - Allergies: 11:39 NKA; ss - Home Meds: 11:39 Lisinopril Oral 10 mg daily [Active]; Metoprolol 50 mg 1 tab PO DAILY [Active]; ss Gabapentin 300 mg every night [Active]; Nexium Oral [Active]; - PMHx: 11:39 CVA; hemorrhagic, behavioral deficits/ global aphasia; Hernia; High Cholesterol; ss Hypertension; - PSHx: 11:39 Hernia sx; ss - Immunization history:: Client reports receiving the 2nd dose of the Covid vaccine. - Social history:: Smoking status: Patient reports the use of cigarette tobacco products, cigars. ROS: 13:39 Constitutional: Negative for fever, and chills. ms3 13:39 Cardiovascular: Negative for chest pain, and palpitations. Respiratory: Negative for shortness of breath, cough, wheezing, and pleuritic chest pain, Abdomen/GI: Negative for abdominal pain, nausea, vomiting, diarrhea, and constipation, Skin: Negative for injury, rash, and discoloration. 13:39 Eyes: Positive for visual disturbance. 13:39 All other systems are negative. Exam: 13:39 Radiologist reports: Negative ms3 13:39 Constitutional: This is a well developed, well nourished patient who is awake, alert, and in no acute distress. Head/Face: Normocephalic, atraumatic. 13:39 Respiratory: Lungs have equal breath sounds bilaterally, clear to auscultation and percussion. No rales, rhonchi or wheezes noted. No increased work of breathing, no retractions or nasal flaring. Abdomen/GI: Soft, non-tender, with normal bowel sounds. No distension or tympany. No guarding or rebound. No evidence of tenderness throughout. Skin: Warm, dry with normal turgor. Normal color with no rashes, no lesions, and no evidence of cellulitis. 13:39 Eyes: Right-sided hemianopsia. 13:39 ECG was reviewed by the Attending Physician. ms3 Vital Signs: 11:37 BP 190 / 94; Pulse 79; Resp 18; Temp 98.3(O); Pulse Ox 100% on R/A; Weight 72.57 kg; ss Height 5 ft. 9 in. (175.26 cm); 12:15 BP 166 / 83; Pulse 69; Resp 18; Pulse Ox 99% ; ko1 12:30 BP 145 / 76; Pulse 64; Pulse Ox 96% ; ko1 13:00 BP 143 / 79; Pulse 63; Pulse Ox 97% ; ko1 11:37 Body Mass Index 23.63 (72.57 kg, 175.26 cm) ss MDM: 11:42 Patient medically screened. ms3 13:44 Differential diagnosis: CVA, metabolic disorder, PR vs Paresthesias. Data reviewed: ms3 vital signs, nurses notes, lab test result(s), EKG, radiologic studies, and as a result, I will discharge patient. Consideration of Admission/Observation Escalation of care including admission/observation considered. Troponin negative CT head negative. Independent interpretation of the following test(s) in the Emergency Department EKG: See my EKG interpretation above CT Scan: My interpretation is CT images reviewed by me and no intracranial hemorrhage seen. 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 Historians other than the Patient: Daughter/Son: Daughter. Counseling: I had a detailed discussion with the patient and/or guardian regarding: the historical points, exam findings, and any diagnostic results supporting the discharge/admit diagnosis, lab results, radiology results, the need for outpatient follow up, to return to the emergency department if symptoms worsen or persist or if there are any questions or concerns that arise at home. ED course: Discussed labs, EKG, chest x-ray, CT head with patient and his daughter. Patient to follow-up Dr. Peacock in 2 to 3 days. They understand and agree with plan. All questions were answered. Return precautions discussed include worsening symptoms, or any other concerns. 01/10 11:43 Order name: Basic Metabolic Panel ms3 01/10 11:43 Order name: CBC with Diff ms3 01/10 11:43 Order name: High Sensitivity Troponin ms3 01/10 11:43 Order name: Protime (+inr) ms3 01/10 11:43 Order name: Ptt, Activated ms3 01/10 12:08 Order name: Protime (+INR) EDMS 01/10 11:43 Order name: CT Head Brain wo Cont ms3 01/10 11:43 Order name: CXR XRAY ms3 01/10 12:04 Order name: RAD EDMS 01/10 12:08 Order name: PTT, Activated Partial Thromb EDMS 01/10 12:16 Order name: Basic Metabolic Panel EDMS 01/10 12:16 Order name: Troponin High Sensitivity EDMS 01/10 12:19 Order name: CBC with Automated Diff EDMS 01/10 12:22 Order name: CT EDMS 01/10 11:43 Order name: EKG; Complete Time: 11:44 ms3 01/10 11:43 Order name: Accucheck; Complete Time: 12:18 ms01/10 11:43 Order name: Cardiac monitoring; Complete Time: 11:52 01/10 11:43 Order name: EKG - Nurse/Tech; Complete Time: 12:18 ms01/10 11:43 Order name: IV Saline Lock; Complete Time: 11:52 ms01/10 11:43 Order name: Labs collected and sent; Complete Time: 11:52 01/10 11:43 Order name: NPO; Complete Time: 11:51 ms01/10 11:43 Order name: O2 Per Protocol; Complete Time: 11:51 ms01/10 11:43 Order name: O2 Sat Monitoring; Complete Time: 11:51 ms01/10 11:43 Order name: Stroke Swallow Screen; Complete Time: 12:19 ms3 EC:39 Rate is 67 beats/min. Rhythm is regular. QRS [place] is Normal. [place] interval is normal. QRS ms3 interval is normal. Clinical impression: Normal ECG. Interpreted by me. Reviewed by me. Administered Medications: No medications were administered Disposition Summary: 01/10/23 12:50 Discharge Ordered Location: Home ms3 Condition: Stable ms3 Diagnosis - Paresthesia of skin ms3 - Low vision, one eye, unspecified eye ms3 - Essential (primary) hypertension ms3 Followup: ms3 - With: Simone Peacock MD - When: 2 - 3 days - Reason: Recheck today's complaints Discharge Instructions: - Discharge Summary Sheet ms3 - Hypertension, Adult ms3 - Visual Disturbances ms3 - Paresthesia ms3 - Managing Your Hypertension ms3 Forms: - Medication Reconciliation Form ms3 - Thank You Letter ms3 - Antibiotic Education ms3 - Prescription Opioid Use ms3 Signatures: Dispatcher [employer] Vero Jules RN RN Sesar Toth DO DO ms3
--- NOTE | 2023-01-11 13:22 | EKG ---
Test Date: 2023-01-10 Test Time: 12:19:19 Business Intelligence Architect: AMBAR MEASUREMENT RESULTS: Intervals: Rate: 67 DC: 154 QRSD: 80 QT: 398 QTc: 420 [place]: P: 44 DC: 154 QRS: -25 T: 9 INTERPRETIVE STATEMENTS: Poor data quality, interpretation may be adversely affected Normal sinus rhythm Minimal voltage criteria for LVH, may be normal variant Borderline ECG Compared to ECG 04/01/2019 21:07:48 No significant changes Electronically Signed On 01-11-23 13:18:53 MAINTENANCE CONTROLLER by Ketan Prabhakar
== END 2023-01-10 13:42 | disposition home or self-care (01) ==
LOC: ER 11:24
DX: R20.2 Paresthesia of skin (principal); H54.50 Low vision, one eye, unspecified eye; I10 Essential (primary) hypertension; R07.89 Other chest pain; F17.290 Nicotine dependence, other tobacco product, uncomplicated; Z86.73 Personal history of transient ischemic attack (TIA), and cerebral infarction without residual deficits
CPT/HCPCS: 36415; 70450; 71045; 80048; 84484; 85025; 85610; 85730; 93005; 99284

== ENCOUNTER 2023-01-21 08:00 | Emergency (ER) | payer OTHER ==
--- OUTSIDE RECORDS SUMMARY | 2023-01-21 08:13 | XMS REPORT | Continuity of Care Document ---
:1950 Author Organization [facility] t Address [address] [place] [address] Care Team Providers Name Role Phone Conrado Jhaveri MD Primary Care Physician Conrado Jhaveri MD Attending Clinician Fuad Askew MD Attending Clinician Doctor Unassigned, Carmet Attending Clinician Unavailable Bill Acosta MD Attending Clinician Joellen Bingham MA Attending Clinician Unavailable ERIC BOND Attending Clinician Unavailable Odemitch BOOTH, Adetutbelinda Attending Clinician Eric Bond MD Attending Clinician Vaccine, Ang Db Uc Attending Clinician Unavailable Rangel Irby PA-C Attending Clinician RANGEL IRBY Attending Clinician Unavailable Sabrina Bruno MD Attending Clinician SABRINA BRUNO Attending Clinician Unavailable CONRADO JHAVREI Attending Clinician Unavailable Lab, Adc Fam Pob I Attending Clinician Unavailable Wilver Ozuna LVN Attending Clinician Unavailable LEANNA KHAN Attending Clinician Unavailable Mookie Robertson DO Attending Clinician Cj Pedraza MD Attending Clinician ROB MORENO Attending Clinician Unavailable ERIC BOND Admitting Clinician Unavailable Eric Bond MD Admitting Clinician ROB MORENO Admitting [...] Added automatic ally from request for surgery [id number] Altered Altered Disease Active 2017-11 Methodi mental [...] Active Univers ALLERGIE Class ity of [facility] [place] [facility] Social History Social Habit Start Date Stop Date Quantity Comments Source History of Cigar Smoker University o f tobacco use [facility] Branch Exposure to Not sure [place] of SARS-CoV-2 [place] [facility] (event) Branch History [facility] Alcohol Std Hospital Drinks History [facility] Mandaeism Alcohol Binge Hospital Alcohol intake 2020-01-11 2020-01-11 Current Mandaeism 00:00:00 00:00:00 non-drinker of Hospital alcohol (finding) History [facility] 2020-01-11 2020-01-11 1 Mandaeism Alcohol Frequency 00:00:00 00:00:00 Hospita l Tobacco use and 2019-04-27 2019-04-27 Smokeless tobacco Un iversity of exposure 00:00:00 00:00:00 non-user [facility] Sex Assigned At [birth year] [place]KO [place] 00:00:00 00:00:00 Medical Center Smoking Status Start Date Stop Date Source Smokes tobacco daily 2019-04-27 00:00:00 Univers ity of [facility] Never smoked tobacco Mandaeism H ospital Medications Ordered Filled Start Stop Current Ordering Indication Dosage Frequency Signature Comments Components Source Medication Medication Date Date Medication? Clinician (SIG) Name Name gabapentin 2021-11 Yes [id number] 300mg Q.5D Take 1 [facility] (NEURONTIN) 1-[address] 300 mg 00:00: (300 mg Hospita capsule 00 total) by l mouth 2 (two) times a day. gabapentin 2021-11 Yes [id number] 300mg Q.5D Take 1 [facility] (NEURONTIN) -[address] 300 mg 00:00: (300 mg Hospita capsule 00 total) by l mouth 2 (two) times a day. gabapentin 2021- No [id number] 300mg Q.5D Take 1 [facility] (NEURONTIN) 08-17 11-[address] 300 mg 00:00: 00:00 (300 mg Hospita capsule 00 :00 total) by l mouth 2 (two) times a day. gabapentin 2021- No [id number] 300mg Q.5D Take 1 [facility] (NEURONTIN) 08-17 11-[address] 300 mg 00:00: 00:00 (300 mg Hospita capsule 00 :00 total) by l mouth 2 (two) times a day. metoprolol Yes [id number] TAKE ONE Univers tartrate 25 9-19 (1) TABLET it y of mg tablet 00:[place]: [place] AT Medical BEDTIME. Branch metoprolol Yes [id number] TAKE ONE Univers tartrate 25 9-19 (1) TABLET it y of mg tablet 00:00: [place] AT Medical BEDTIME. Branch metoprolol Yes [id number] TAKE ONE Univers tartrate 25 9-19 (1) TABLET it y of mg tablet 00:00: [place] AT Medical BEDTIME. Branch metoprolol Yes [id number] TAKE ONE Univers tartrate 25 9-19 (1) TABLET it y of mg tablet 00:00: [place] AT Medical BEDTIME. Branch metoprolol 2021-0 Yes [id number] TAKE ONE Univers tartrate 25 9-19 (1) TABLET it y of mg tablet 00:00: [place] 00 AT Medical BEDTIME. Branch metoprolol 0 Yes [id number] TAKE ONE Univers tartrate 25 9-19 (1) TABLET it y of mg tablet 00:00: [place] AT [place] BEDTIME. Branch LISINOPRIL Yes TAKE [...] MOUTH [place] 00 EVERY Medical MORNING. Branch gabapentin 2021- No [id number] TAKE ONE [facility] (NEURONTIN) 12-01 (1) st 300 mg 00:00: 00:00 CAPSULE(S) Hosp jacquelyn capsule 00 :00 BY MOUTH l TWICE A DAY. gabapentin 2021- No [id number] TAKE ONE [facility] (NEURONTIN) 12-01 (1) st 300 mg 00:00: 00:00 CAPSULE(S) Hosp jacquelyn capsule 00 :00 BY MOUTH l TWICE A DAY. gabapentin 2020-11 Yes 300mg Take 300 Un denise 300 mg 2-21 mg by ity of capsule 11:05: mouth at [place] [address] bedtime. Medical Branch esomeprazol 2020-11 Yes 40mg Take 40 mg Univers e 40 mg 2-21 by mouth. ity of capsule 11:05: [address] Branch lisinopriL 2020-11 Yes 10mg Take 10 mg U nivers 5 mg tablet 2-21 by mouth ity of 11:05: daily. [address] MULTIVITAMI 2020-11 Yes Take by Uni vers N ORAL 2-21 mouth. ity of 11:05: [address] Branch gabapentin 2020-11 Yes 300mg Take 300 Un denise 300 mg 2-21 mg by ity of capsule 11:05: mouth at [place] [address] bedtime. Medical Branch esomeprazol 2020-11 Yes 40mg Take 40 mg Univers e 40 mg 2-21 by mouth. ity of capsule 11:05: [address] lisinopriL 2020-11 Yes 10mg Take 10 mg U nivers 5 mg tablet 2-21 by mouth ity of 11:05: daily. [address] MULTIVITAMI 2020-11 Yes Take by Uni vers N ORAL 2-21 mouth. ity of 11:05: [address] gabapentin 2020-11 Yes 300mg Take 300 Un denise 300 mg 2-21 mg by ity of capsule 11:05: mouth at [place] [address] bedtime. Medical Branch esomeprazol 2020-11 Yes 40mg Take 40 mg Univers e 40 mg 2-21 by mouth. ity of capsule 11:05: [address] lisinopriL 2020-11 Yes 10mg Take 10 mg U nivers 5 mg tablet 2-21 by mouth ity of 11:05: daily. [address] MULTIVITAMI 2020-11 Yes Take by Uni vers N ORAL 2-21 mouth. ity of 11:05: [address] gabapentin 2020-11 Yes 300mg Take 300 Un denise 300 mg 2-21 mg by ity of capsule 11:05: mouth at [place] [address] bedtime. Medical Branch esomeprazol 2020-11 Yes 40mg Take 40 mg Univers e 40 mg 2-21 by mouth. ity of capsule 11:05: [address] MULTIVITAMI 2020-11 Yes Take by Uni vers N ORAL 2-21 mouth. ity of 11:05: [address] Branch gabapentin 2020-11 Yes 300mg Take 300 Un denise 300 mg 2-21 mg by ity of capsule 11:05: mouth at [place] [address] bedtime. Medical Branch esomeprazol 2020-11 Yes 40mg Take 40 mg Univers e 40 mg 2-21 by mouth. ity of capsule 11:05: [address] Branch MULTIVITAMI 2020-11 Yes Take by Uni vers N ORAL 2-21 mouth. ity of 11:05: [place] [address] Medical Branch gabapentin 2020-11 Yes 300mg Take 300 Un denise 300 mg 2-21 mg by ity of capsule 11:05: mouth at [place] [address] bedtime. Medical Branch esomeprazol 2020-11 Yes 40mg Take 40 mg Univers e 40 mg 2-21 by mouth. ity of capsule 11:05: [address] MULTIVITAMI 2020-11 Yes Take by Uni vers N ORAL 2-21 mouth. ity of 11:05: [address] Branch gabapentin 2020-11 Yes 300mg Take 300 Un denise 300 mg 2-21 mg by ity of capsule 11:05: mouth at [place] [address] bedtime. Medical Branch esomeprazol 2020-11 Yes 40mg Take 40 mg Univers e 40 mg 2-21 by mouth. ity of capsule 11:05: [address] MULTIVITAMI 2020-11 Yes Take by Uni vers N ORAL 2-21 mouth. ity of 11:05: [address] gabapentin 2020-11 Yes 300mg Take 300 Un denise 300 mg 2-21 mg by ity of capsule 11:05: mouth at [place] [address] bedtime. Medical Branch esomeprazol 2020-11 Yes 40mg Take 40 mg Univers e 40 mg 2-21 by mouth. ity of capsule 11:05: [address] MULTIVITAMI 2020-11 Yes Take by Uni vers N ORAL 2-21 mouth. ity of 11:05: [address] gabapentin 2020-11 Yes 300mg Take 300 Un denise 300 mg 2-21 mg by ity of capsule 11:05: mouth at [place] [address] bedtime. Medical Branch esomeprazol 2020-11 Yes 40mg Take 40 mg Univers e 40 mg 2-21 by mouth. ity of capsule 11:05: [place] 13 Medical Branch MULTIVITAMI 2020-11 Yes Take by Uni vers N ORAL 2-21 mouth. ity of 11:05: [place] [facility] acetaminoph 2020-11 Yes [id number] 500mg Take 1 Univers en (TYLENOL 2-09 tablet by ity of EXTRA 00:00: mouth [place] STRENGTH) 00 every 6 Medical 500 mg (six) Branch tablet hours as needed for Pain. acetaminoph 2020-11 Yes [id number] 500mg Take 1 Univers en (TYLENOL 2-09 tablet by ity of EXTRA 00:00: mouth [place] STRENGTH) 00 every 6 Medical 500 mg (six) Branch tablet hours as needed for Pain. acetaminoph 2020-11 Yes [id number] 500mg Take 1 Univers en (TYLENOL 2-09 tablet by ity of EXTRA 00:00: mouth [place] STRENGTH) 00 every 6 Medical 500 mg (six) Branch tablet hours as needed for Pain. acetaminoph 2020-11 Yes [id number] 500mg Take 1 Univers en (TYLENOL 2-09 tablet by ity of EXTRA 00:00: mouth [place] STRENGTH) 00 every 6 Medical 500 mg (six) Branch tablet hours as needed for Pain. acetaminoph 2020-11 Yes [id number] 500mg Take 1 Univers en (TYLENOL 2-09 tablet by ity of EXTRA 00:00: mouth [place] STRENGTH) 00 every 6 Medical 500 mg (six) Branch tablet hours as needed for Pain. acetaminoph 2020-11 Yes [id number] 500mg Take 1 Univers en (TYLENOL 2-09 tablet by ity of EXTRA 00:00: mouth [place] STRENGTH) 00 every 6 Medical 500 mg (six) Branch tablet hours as needed for Pain. acetaminoph 2020-11 Yes [id number] 500mg Take 1 Univers en (TYLENOL 2-09 tablet by ity of EXTRA 00:00: mouth [place] STRENGTH) 00 every 6 Medical 500 mg (six) Branch tablet hours as needed for Pain. acetaminoph 2020-11 Yes [id number] 500mg Take 1 Univers en (TYLENOL 2-09 tablet by ity of EXTRA 00:00: mouth [place] STRENGTH) 00 every 6 Medical 500 mg (six) Branch tablet hours as needed for Pain. acetaminoph 2020-11 Yes [id number] 500mg Take 1 Univers en (TYLENOL 2-09 tablet by ity of EXTRA 00:00: mouth [place] STRENGTH) 00 every 6 Medical 500 mg (six) Branch tablet hours as needed for Pain. gabapentin Yes [id number] TAKE ONE [facility] (NEURONTIN) 8-30 (1) st 300 mg 00:00: CAPSULE(S) Hospi ta capsule 00 BY MOUTH l TWICE A DAY. metoprolol Yes [id number] 25mg Take 1 U nivers tartrate 25 7-15 tablet by ity of mg tablet 00:00: [place] bed[place]. Medical Branch metoprolol Yes [id number] 25mg Take 1 U nivers tartrate 25 7-15 tablet by ity of mg tablet 00:00: [place] bedtime. Medical Branch metoprolol Yes [id number] 25mg Take 1 U nivers tartrate 25 7-15 tablet by ity of mg tablet 00:00: [place] bed[place]. Medical Branch metoprolol 2021- No [id number] 25mg Take 1 Univers tartrate 25 7-15 09-19 tablet by it y of mg tablet 00:00: 00:00 mouth at [place] 00 :00 bedtime. Medical Branch memantine 2021- No [id number] 5mg Q.5D Take 1 [facility] (Namenda) 5 01-12- 9104 tablet (5 st MG tablet 00:00: 05:59 mg total) Ho spita 00 :00 by mouth 2 l (two) times a day. memantine 2021- No [id number] 5mg Q.5D Take 1 [facility] (Namenda) 5 2-12 01- 9104 tablet (5 st MG tablet 00:00: 05:59 mg total) Ho spita 00 :00 by mouth 2 l (two) times a day. gabapentin 2020- No [id number] 300mg Q.5D Take 1 [facility] (NEURONTIN) 2- 08-[address] 300 mg 00:00: 00:00 (300 mg Hospita capsule 00 :00 total) by l mouth 2 (two) times a day. gabapentin 2020- No [id number] 300mg Q.5D Take 1 [facility] (NEURONTIN) 8 02-[address] 300 mg 00:00: 00:00 (300 mg Hospita capsule 00 :00 total) by l mouth 2 (two) times a day. memantine 2019-0 2020- No [id number] 10mg Q.5D Take 1 [facility] (Namenda) 06-29 9104 tablet (10 st 10 MG 00:00: 00:00 mg total) Hospit a tablet 00 :00 by mouth 2 l (two) times a day. esomeprazol 2020-0 Yes 40mg QD Take 40 mg Methodi e (NexIUM) 2-[address] 40 MG 17:26: daily Hospita capsule 16 before l breakfast. esomeprazol 2020-0 Yes 40mg QD Take 40 mg Methodi e (NexIUM) 2-[address] 40 MG 11:26: daily Hospita capsule 16 before l breakfast. esomeprazol 2020-0 Yes 40mg QD Take 40 mg Methodi e (NexIUM) 2-[address] 40 MG 11:26: daily Hospita capsule 16 before l breakfast. lisinopril 2019-0 Yes 10mg QD Take 10 mg M ethodi (PRINIVIL,Z 1-[address] ESTRIL) 5 21:33: daily. Hospit a mg tablet 05 Hold l sBP,110 or hr,60 lisinopril 2019-0 Yes 10mg QD Take 10 mg M ethodi (PRINIVIL,Z 1-[address] ESTRIL) 5 15:33: daily. Hospit a mg tablet 05 Hold l sBP,110 or hr,60 lisinopril 2019-0 Yes 10mg QD Take 10 mg M [...] a 50 mg 00 l tablet atorvastati 2018-0 Yes 20mg QD Take [address] [facility] (LIPITOR) 3-30 by mouth [place] s 20 MG 14:59: daily. Medical tablet [address] [place] [address] atorvastati 2018-0 Yes 20mg QD Take [address] [facility] [facility] (LIPITOR) 3-30 by mouth [place] s 20 MG 14:59: daily. Medical tablet [address] [place] [address] atorvastati 2018-0 Yes 20mg QD Take [address] [facility] (LIPITOR) 3-30 by mouth Luke s 20 MG 14:59: daily. [address] Immunizations Ordered Filled Immunization Date Status Comments [facility] e Immunization Name Name SARS-COV-2 COVID-19 2021-11-05 Completed Unive rsity of PFIZER VACCINE 00:00:00 [facility] SARS-COV-2 COVID-19 2021-11-05 Completed Unive rsity of PFIZER VACCINE 00:00:00 [facility] SARS-COV-2 COVID-19 2021-11-05 Completed Unive rsity of PFIZER VACCINE 00:00:00 [facility] SARS-COV-2 COVID-19 2021-11-05 Completed Unive rsity of PFIZER VACCINE 00:00:00 [facility] SARS-COV-2 COVID-19 2021-11-05 Completed Unive rsity of PFIZER VACCINE 00:00:00 [facility] SARS-COV-2 COVID-19 2021-11-05 Completed Unive rsity of PFIZER VACCINE 00:00:00 [facility] SARS-COV-2 COVID-19 2021-11-05 Completed Unive rsity of PFIZER VACCINE 00:00:00 [facility] SARS-COV-2 COVID-19 2021-11-05 Completed Unive rsity of PFIZER VACCINE 00:00:00 [facility] SARS-COV-2 COVID-19 2021-11-05 Completed Unive rsity of PFIZER VACCINE 00:00:00 [facility] SARS-COV-2 COVID-19 2020-12-29 Completed Unive rsity of PFIZER VACCINE 00:00:00 [facility] SARS-COV-2 COVID-19 2020-12-29 Completed Unive rsity of PFIZER VACCINE 00:00:00 [facility] SARS-COV-2 COVID-19 2020-12-29 Completed Unive rsity of PFIZER VACCINE 00:00:00 [facility] SARS-COV-2 COVID-19 2020-12-29 Completed Unive rsity of PFIZER VACCINE 00:00:00 [facility] SARS-COV-2 COVID-19 2020-12-29 Completed Unive rsity of PFIZER VACCINE 00:00:00 [facility] SARS-COV-2 COVID-19 2020-12-29 Completed Unive rsity of PFIZER VACCINE 00:00:00 [facility] Branch SARS-COV-2 COVID-19 2020-12-29 Completed Unive rsity of PFIZER VACCINE 00:00:00 [facility] SARS-COV-2 COVID-19 2020-12-29 Completed Unive rsity of PFIZER VACCINE 00:00:00 [facility] SARS-COV-2 COVID-19 2020-12-29 Completed Unive rsity of PFIZER VACCINE 00:00:00 [facility] SARS-COV-2 COVID-19 2020-12-08 Completed Unive rsity of PFIZER VACCINE 00:00:00 [facility] SARS-COV-2 COVID-19 2020-12-08 Completed Unive rsity of PFIZER VACCINE 00:00:00 [facility] SARS-COV-2 COVID-19 2020-12-08 Completed Unive rsity of PFIZER VACCINE 00:00:00 [facility] SARS-COV-2 COVID-19 2020-12-08 Completed Unive rsity of PFIZER VACCINE 00:00:00 [facility] SARS-COV-2 COVID-19 2020-12-08 Completed Unive rsity of PFIZER VACCINE 00:00:00 [facility] SARS-COV-2 COVID-19 2020-12-08 Completed Unive rsity of PFIZER VACCINE 00:00:00 [facility] SARS-COV-2 COVID-19 2020-12-08 Completed Unive rsity of PFIZER VACCINE 00:00:00 [facility] SARS-COV-2 COVID-19 2020-12-08 Completed Unive rsity of PFIZER VACCINE 00:00:00 [facility] SARS-COV-2 COVID-19 2020-12-08 Completed Unive rsity of PFIZER VACCINE 00:00:00 [facility] Vital Signs Vital Name Observation Time Observation Value Comments Source Systolic blood 2021-11-07 17:06:00 159 mm[Hg] Univer sity of pressure [facility] Diastolic blood 2021-11-07 17:06:00 86 mm[Hg] Unive rsity of pressure [facility] Heart rate 2021-11-07 17:04:00 64 /min [facility] Body temperature 2021-11-07 17:04:[address] [facility] Respiratory rate 2021-11-07 17:04:00 16 /min [facility] Body height 2021-11-07 17:04:00 175.3 cm [facility] Body weight 2021-11-07 17:04:00 73.029 kg [facility] BMI 2021-11-07 17:04:00 23.78 kg/m2 [facility] Oxygen saturation in 2021-11-07 17:04:00 99 /min [facility] Arterial blood by [facility] Pulse oximetry Branch Procedures Procedure Date / Time Performing Clinician Source Performed EXTERNAL PROVIDER 2022-10-25 06:01:00 Doctor Unassigned, No [facility] PATIENT QUESTIONNAIRE 2021-11-07 06:01:00 Doctor Unassigned, No [facility] Medical [place] Plan of Care Planned Activity Planned Date Details Comments Source Future Scheduled 2022-10-31 Hepatitis C screening [facility] Test 02:25:03 (procedure) [code = 297779411] Future Scheduled 2022-10-31 COLONOSCOPY SCREENING [facility] Test 02:25:03 [code = COLONOSCOPY SCREENING] Future Scheduled 2022-10-31 SHINGLES VACCINES (1 Met [facility] Test 02:25:03 of 2) [code = SHINGLES VACCINES (1 of 2)] Future Scheduled 2022-10-31 65+ PNEUMOCOCCAL [facility] Test 02:25:03 VACCINE (1 - PCV) [code = 65+ PNEUMOCOCCAL VACCINE (1 - PCV)] Future Scheduled 2022-10-31 COVID-19 VACCINE (4 - [facility] Test 02:25:03 Booster for Pfizer series) [code = COVID-19 VACCINE (4 - Booster for Pfizer series)] Future Scheduled 2022-10-31 [facility] 02:25:03 [code = INFLUENZA VACCINE] Future Scheduled 2022-10-31 [facility] Test 02:25:03 (procedure) [code = 558888258] Future Scheduled 2022-10-31 [facility]ING [facility] Test 02:25:03 [code = COLONOSCOPY SCREENING] Future Scheduled 2022-10-31 SHINGLES VACCINES (1 Met [facility] Test 02:25:03 of 2) [code = [...] [facility] (procedure) [code = 552186751] Future Scheduled [facility]CREENING [facility] [code = COLONOSCOPY SCREENING] Future [...] Type Clinicians Facility Department ID 2018-09-10 Inpatient [facility] [id number] H arris 07:02:05 [facility] 2018-09-09 Inpatient [facility] [id number] H arris 15:25:03 [facility] 2018-09-09 Inpatient [facility] [id number] H arris 11:35:38 [facility] 2018-09-08 Inpatient [facility] [id number] H arris 12:53:31 [facility] 2018-09-07 Inpatient [facility] [id number] H arris 09:44:00 [facility] 2023-01-11 2023-01-11 Telephone PARISH Jhaveri 1.2.840.114 [id number] Univers 00:00:00 00:00:00 [facility] [id number] it y of [place] [id number] [place] ADI?BLEA [id number] Tn ayleen MA[address] MEDICAL OFFICE BUILDING 2022-12-04 2022-12-04 [facility] 1.2.840.114 [id number] Univers 00:00:00 00:00:00 Secure Msg Conrado BARKLEY [id number] ity of Roger [facility] 4.[place] PROFESS[place] [id number] Tn ayleen RAMOS [address] [place] [address] 2022-11-29 2022-11-29 Telephone [facility] [id number] Univers 00:00:00 00:00:00 FuadHugh [facility] [id number] it y of [place] [id number] [place] ADI?BLEA [id number] [facility] A[address] MEDICAL OFFICE [facility] 2022-10-25 2022-10-25 Orders Doctor RANGEL [id number] Univers 00:00:00 00:00:00 Only Unassigned, NICOLETTE [id number] ity of [place] [facility] [id number] [place] as [id number] [address] 2022-09-25 2022-09-25 Telemedici Bill Acosta 1.2.840.1 [id number] Methodi 15:50:00 15:50:[address] 3.430.2.7 Hospit a .3.545515 l .8 2022-09-25 2022-09-25 Telemedici Bill Acosta 1.2.840.1 [id number] Methodi 15:50:00 15:50:[address] 3.430.2.7 Hospit a .3.173809 l .8 2022-09-12 2022-09-12 Refill [facility] 1.2.840.114 [id number] Univers 00:00:00 00:00:00 [facility] [id number] it y of Edward [facility] [id number] [place] ADI?BLEA [id number] [address] OFFICE [facility] 2022-08-17 2022-08-17 Refill Otilia, 1.2.840.1 [id number] Methodi 00:00:00 00:00:[address] 3.430.2.7 Hospit a .3.859804 l .8 2022-08-17 2022-08-17 Refill Otilia, 1.2.840.1 [id number] Methodi 00:00:00 00:00:[address] 3.430.2.7 Hospit a .3.131626 l .8 2022-08-05 2022-08-05 Refill Shakila [facility] 1.2.840.114 [id number] Univers 00:00:00 00:00:00 [facility] [id number] it y of [place] 4.2.7.2.686 [place] as ADI?BLEA [id number] [address] OFFICE [facility] 2022-08-05 2022-08-05 Refill Bill Acosta 1.2.840.1 [id number] Methodi 00:00:00 00:00:[address] 3.430.2.7 Hospit a .3.700598 l .8 2022-08-05 2022-08-05 Refill Bill Acosta 1.2.840.1 [id number] Methodi 00:00:00 00:00:[address] 3.430.2.7 Hospit a .3.366351 l .8 2022-02-26 2022-02-26 Refill Bill Acosta 1.2.840.1 [id number] Methodi 00:00:00 00:00:[address] 3.430.2.7 Hospit a .3.934986 l .8 2022-02-26 2022-02-26 Bill Pressley 1.2.840.1 [id number] Methodi 00:00:00 00:00:[address] 3.430.2.7 Hospit a .3.722790 l .8 2022-02-20 2022-02-20 Outpatient ERIC IVY [facility] [id number] Univers 10:00:00 10:00:00 ity [facility] 2022-02-20 2022-02-20 Outpatient ERIC IVY [facility] [id number] Univers 10:00:00 10:00:00 ity [facility] 2022-02-07 2022-02-07 Case Mt [facility] 1.2.840.114 [id number] Univers 00:00:00 00:00:00 Management Adetutu PRIMARY [id number] ity of [place] [id number] [address] 2021-11-07 2021-11-07 Outpatient ERIC IVY [facility] [id number] Univers 11:00:00 13:58:21 ity [facility] 2021-11-07 2021-11-07 Office Eric Bond [facility] 1.2.840.114 [id number] Univers 11:00:00 13:58:21 Visit HEALTH [id number] it y [place].2.[place] CHO [id number] [address] OFFICE BUILDING 2021-11-07 2021-11-07 Outpatient R ERIC BOND [facility] [id number] Univers 11:00:00 11:00:00 ity [facility] 2021-11-07 2021-11-07 Orders Doctor MULTANI 1.2.840.114 [id number] Univers 00:00:00 00:00:00 Only Unassigned, NICOLETTE [id number] ity of [place] [facility] 4.2.7.2.686 [place] as [id number] [address] 2021-11-05 2021-11-05 Imm/Inj Vaccine, Ang Db [facility] 1.2.840 .114 [id number] Univers 09:40:00 09:50:00 Visit Rangel Irby [id number] ity of [place] 4.2.7.2.686 [place] as ADI?BLEA [id number] Tn ayleen CHICHO [address] [place] MEDICAL OFFICE BUILDING 2021-11-05 2021-11-05 Outpatient R JOHANA [facility] [id number] Univers 09:40:00 09:40:00 RANGEL ity [facility] 2021-10-26 2021-10-26 Outpatient R ERIC BOND [facility] MELISSA [id number] Univers 08:57:00 15:44:00 ity of [facility] 2021-10-26 2021-10-26 Hospital Eric Bond TNARELI 1.2.840.114 [id number] Univers 08:57:00 15:44:00 Encounter HEALTH [id number] ity [place]2.[place] [facility] [phone] [address] ([facility]) 2021-10-26 2021-10-26 Surgery Eric Bond TNARELI 1.2.840.114 [id number] Univers 10:25:00 13:35:00 SPECIALTY 350.1.13.10 it[place] of [place] AT [phone] Tn eduardotito STOCK [address] [place] [address] 2021-10-24 2021-10-24 Outpatient R [facility] [id number] Univers 11:00:00 11:00:00 ity of [facility] 2021-10-24 2021-10-24 Orders Doctor RANGEL 1.2.840.114 [id number] Univers 00:00:00 00:00:00 Only Unassigned, NICOLETTE 350.1.13.10 ity of [place] [facility] 4.2.7.2.686 Toby as [phone] [address] 2021-09-12 2021-09-12 Office Eric Bond [facility] 1.2.840.114 [id number] Univers 13:14:17 17:05:34 Visit Health 350.1.13.10 it [place] [phone] [address] Office [facility] 2021-09-12 2021-09-12 Outpatient ERIC IVY [facility] [id number] Univers 13:30:00 13:30:00 ity of [facility] 2021-08-22 2021-08-22 Office Eric Bond [facility] 1.2.840.114 [id number] Univers 09:02:00 15:24:47 Visit Health 350.1.13.10 it [place] [phone] [address] Office [facility] 2021-08-22 2021-08-22 Outpatient Neeru ERIC BOND [facility] [id number] Univers 09:00:00 09:00:00 ity of [facility] 2021-08-16 2021-08-16 Hospital [facility] 1.2.840.114 [id number] Univers 08:00:00 23:59:00 Encounter Sabrina [place] 350.1.13.10 [place]y [place] [phone] [address] 2021-08-16 2021-08-16 [facility] [id number] Univers 00:00:00 00:00:00 SABRINA conner [facility] 2021-08-15 2021-08-15 Out[facility] [id number] Univers 14:00:00 14:39:56 SABRINA conner [facility] 2021-08-15 2021-08-15 Office [facility] 1.2.488.183 [id number] Univers 13:57:36 14:39:56 Visit Sabrina [place] 350.1.13.10 i ty of [place] Profess[place] [phone] Tn dic[address] 2021-08-13 2021-08-13 Orders Doctor RANGEL 1.2.840.114 [id number] Univers 00:00:00 00:00:00 Only Unassigned, NICOLETTE 350.1.13.10 ity of [place] [facility] 4.2.7.2.686 Toby as [phone] [address] 2021-07-27 2021-07-27 Patient Shakila [facility] 1.2.840.114 [id number] Univers 00:00:00 00:00:00 Secure Msg [facility] 350.1.13.10 ity of [place] 4.2.7.2.686 Toby as Adi?Blea [phone] [address] Medical Office Building 2021-07-25 2021-07-25 [facility] 1.2.840.114 [id number] Univers 00:00:00 00:00:00 [facility] 350.1.13.10 it y of [place] 4.2.7.2.686 Toby as Adi?Blea [phone] [address] Office Building 2021-07-17 2021-07-17 Refill Bill Acosta 1.2.840.1 [id number] Methodi 00:00:00 00:00:[address] 3.430.2.7 Hospit a .3.317819 l .8 2021-06-09 2021-06-09 Outpatient Neeru JHAVERI [facility] [id number] [facility] 10:45:00 10:45:00 CONRADO conner [facility] 2021-06-06 2021-06-06 Skip [facility], Adc Fam Pob I [facility] 1.2. 840.114 [id number] Univers 10:01:34 10:17:23 Visit Conrado Jhaveri [facility] 350.1.13 .10 ity of [place] 4.2.7.2.686 Toby as Professio [phone] [address] Office Building One 2021-06-06 2021-06-06 Outpatient R SHAKILA [facility] [id number] Univers 09:00:00 10:17:23 [facility] 2021-06-06 2021-06-06 Telephone [facility] 1.2.840.114 [id number] Univers 00:00:00 00:00:00 Conrado [facility] 350.1.13.10 it y of [place] 4.2.7.2.686 Toby as Professio [phone] [address] One 2021-06-01 2021-06-01 Office [facility] 1.2.840.114 [id number] Univers 10:07:45 10:42:58 Visit Conrado [facility] 350.1.13.10 it y of [place] 4.2.7.2.686 [place] as Professio [phone] [address] One 2021-06-01 2021-06-01 Outpatient Neeru [facility] [id number] Univers 10:00:00 10:42:58 [facility] 2021-06-01 2021-06-01 Outpatient R [facility] [id number] Univers 10:00:00 10:00:00 [facility] 2021-05-30 2021-05-30 Outpatient Neeru [facility] [id number] Univers 11:15:00 11:15:00 [facility] 2021-05-18 2021-05-18 Outpatient [facility] [id number] Univers 10:15:00 10:15:00 [facility] 2021-05-10 2021-05-10 [facility] 1.2.840.114 [id number] Univers 00:00:00 00:00:00 [facility] 350.1.13.10 it y of [place] 4.2.7.2.686 [place]y as Professio [phone] [address] One 2021-05-10 2021-05-10 [facility] 1.2.840.114 [id number] 00:00:00 00:00:00 Conrado [facility] 350.1.13.10 [place] 4.2.7.2.686 Professio [phone] [place] [address] Office Building One 2021-02-23 2021-02-23 [facility] 1.2.840.114 [id number] Univers 00:00:00 00:00:00 [facility] 350.1.13.10 it y of [place] 4.2.7.2.686 [place] Professio [phone] Tn dical [address] Office Building One 2021-02-23 2021-02-23 [facility] 1.2.840.114 [id number] 00:00:00 00:00:00 [facility] 350.1.13.10 [place] 4.2.7.2.686 Professio [phone] [place] [address] Office Building One 2021-02-10 2021-02-10 Patient Laith, UNIVERSIT 1.2.840.114 [id number] [facility] 00:00:00 00:00:00 Secure Msg Wilver M Y 350.1.13.10 ity of NATIONAL 4.2.7.2.686 Toby as BANK [phone] [facility] BLDG. [address] [place] 2021-02-10 2021-02-10 Patient Laith, UNIVERSIT 1.2.840.114 [id number] 00:00:00 00:00:00 Secure Msg Wilver M Y 350.1.13.10 NATIONAL 4.2.7.2.686 BANK [phone] BLDG. 144 2021-01-12 2021-01-12 Telemedici Bill Acosta 1.2.840.1 [id number] Methodi 10:11:17 10:31:[address] 3.430.2.7 Hospit a .3.989693 l .8 2020-12-29 2020-12-29 Outpatient R ERIN [facility] [id number] [facility] 09:00:00 09:00:00 LEANNA ity of [facility] 2020-12-09 2020-12-09 Telephone [facility] 1.2.840.114 [id number] Univers 00:00:00 00:00:00 [facility] 350.1.13.10 it y of [place] 4.2.7.2.686 Toby as Professio [phone] [address] Office [facility] One 2020-12-09 2020-12-09 [place] [facility] 1.2.840.114 [id number] 00:00:00 00:00:00 [facility] 350.1.13.10 [place] 4.2.7.2.686 Professio [phone] [place] [address] Office [facility] One 2020-12-08 2020-12-08 Outpatient R ERIN [facility] [id number] Univers 08:30:00 08:30:00 [facility] 2020-12-07 2020-12-07 Patient Marcelo [facility] 1.2.840.114 [id number] Univers 00:00:00 00:00:00 Outreach Mookie PRIMARY 350.1.13.10 i ty of [place] C[place].2.[place] [phone] [address] 2020-12-07 2020-12-07 Patient Marcelo [facility] 1.2.840.114 [id number] 00:00:00 00:00:00 Outreach Mookie PRIMARY 350.1.13.10 [place] CARE 4.2.7.2.686 PAVILLION [phone] [facility] 2020-12-01 2020-12-01 Outpatient R ERIN [facility] [id number] Univers 09:20:00 09:20:00 [facility] 2020-11-25 2020-11-25 [facility] 1.2.840.114 [id number] Univers 00:00:00 00:00:00 [facility] 350.1.13.10 it y of [place] 4.2.7.2.686 Toby as Professio [phone] [address] Office [facility] One 2020-11-25 2020-11-25 [facility] 1.2.840.114 [id number] 00:00:00 00:00:00 [facility] Health 350.1.13.10 [place] 4.2.7.2.686 Professio [phone] [place] [address] Office Building One 2020-11-21 2020-11-21 Aleida Bingham 1.2.840.1 [id number] Methodi 00:00:00 00:00:[address] 3.430.2.7 Hospit a .3.883003 l .8 2020-08-30 2020-08-30 [facility] 1.2.840.114 [id number] Univers 00:00:00 00:00:00 [facility] Health 350.1.13.10 it y of [place] 4.2.7.2.686 Toby as Professio [phone] [address] One 2020-08-30 2020-08-30 [facility] 1.2.840.114 [id number] 00:00:00 00:00:00 [facility] Health 350.1.13.10 [place] 4.2.7.2.686 Professio [phone] [place] [address] Office Building One 2020-06-09 2020-06-09 [facility] 1.2.840.114 [id number] Univers 00:00:00 00:00:00 Conrado Health 350.1.13.10 it y of [place] 4.2.7.2.686 [place]y as Professio [phone] [address] Office [facility] One 2020-06-09 2020-06-09 [facility] 1.2.840.114 [id number] 00:00:00 00:00:00 [place]ado Health 350.1.13.10 [place] 4.2.7.2.686 Professio [phone] [place] [address] Office Building One 2020-05-09 2020-05-09 [facility] 1.2.840.114 [id number] Univers 00:00:00 00:00:00 [facility] Health 350.1.13.10 it y of [place] 4.2.7.2.686 [place] as Professio [phone] [address] 2020-05-09 2020-05-09 [facility] 1.2.840.114 [id number] 00:00:00 00:00:00 [facility] 350.1.13.10 [place] 4.2.7.2.686 Professio [phone] [address] 2020-04-04 2020-04-04 Outpatient R [facility] [id number] Univers 15:30:00 15:30:00 [facility] 2020-04-04 2020-04-04 Outpatient R [facility] [id number] Univers 13:15:00 13:15:00 [facility] 2020-04-04 2020-04-04 Outpatient R [facility] [id number] Univers 10:30:00 10:30:00 [facility] 2020-04-04 2020-04-04 [facility] 1.2.840.114 [id number] Univers 09:45:08 10:00:08 ne Visit Conrado [place] 350.1.13.10 ity of [place].2.[place] [phone] [address] 2020-04-04 2020-04-04 [facility] 1.2.840.114 [id number] 09:45:08 10:00:08 ne Visit Conrado [place] 350.1.13.10 [place] 4.2.7.2.686 Professio [phone] [address] 2020-04-01 2020-04-01 Outpatient R [facility] [id number] Univers 11:15:00 11:15:00 [facility] 2020-03-25 2020-03-25 Pre Visit [facility] 1.2.840.114 [id number] Univers 00:00:00 00:00:00 Outreach Conrado [place] 350.1.13.10 ity of [place] [phone] [address] 2020-03-25 2020-03-25 Pre Visit [facility] 1.2.840.114 [id number] 00:00:00 00:00:00 Outreach Conrado [place] 350.1.13.10 [place] 4.2.7.2.686 Professio [phone] [address] 2020-03-21 2020-03-21 Patient [facility] 1.2.840.114 [id number] Univers 00:00:00 00:00:00 Secure Msg [place] Health 350.1.13.10 ity of [place] 4.2.7.2.686 [place] Professio [phone] [address] 2020-03-21 2020-03-21 Telephone [facility] 1.2.840.114 [id number] Univers 00:00:00 00:00:00 [place] Health 350.1.13.10 it y of [place] 4.2.7.2.686 [place] Professio [phone] [address] 2020-03-21 2020-03-21 Patient [facility] 1.2.840.114 [id number] 00:00:00 00:00:00 Secure Msg [facility] Health 350.1.13.10 [place] 4.2.7.2.686 Professio [phone] [address] 2020-03-21 2020-03-21 Telephone [facility] 1.2.840.114 [id number] 00:00:00 00:00:00 [facility] Health 350.1.13.10 [place] 4.2.7.2.686 Professio [phone] [address] 2020-02-26 2020-02-26 [facility] 1.2.840.114 [id number] Univers 00:00:00 00:00:00 Secure Msg Cj MADHU 350.1.13.[address] [facility] [place].2.[place] [phone] [facility] [address] 2020-02-26 2020-02-26 Patient PARISH Pedraza 1.2.840.114 [id number] 00:00:00 00:00:00 Secure Msg Cj LEUNG 350.1.13.10 [place] 4.2.7.2.686 [id number] 144 2018-09-10 2018-09-10 Outpatient [facility] [id number] [place] 00:00:00 00:00:00 Health 2018-09-08 2018-09-08 Outpatient [facility] [id number] [place] 00:00:00 00:00:00 Health 2018-09-05 2018-09-05 Outpatient [facility] [id number] [place] 10:26:16 10:26:16 Health 2018-09-05 2018-09-05 Outpatient [facility] [id number] [place] 03:02:32 03:02:32 Health 2018-09-04 2018-09-04 Emergency [facility] [id number] [place] 19:36:56 19:36:56 Health 2018-09-04 2018-09-04 Inpatient [facility] [id number] [place] 15:51:37 15:51:37 Health Results Test Description Test Time Test Comments Results Result Comments Source MAGNESIUM 2018-02-14 06:17:00 Test Item Value Reference Range Interpretation Comme nts MAGNESIUM (BEAKER) (test code = 627) 2.0 mg/dL 1.6-2.6 BASIC METABOLIC [id number] 06:17:00 Test Item Value Reference Range Interpretation [...] PATIEN TS. CBC W/PLT COUNT & AUTO [id number] 05:34:00 Test Item Value Reference Range Interpretation [...] PERCENT (BEAKER) (test code = 2801) POCT-GLUCOSE [id number] 05:21:00 Test Item Value Reference Range Interpretation Comments POC-GLUCOSE METER 105 mg/dL 70-[address] [facility] 6720 (BEAKER) (test code = [place] 1538) [address] POCT-GLUCOSE [id number] 01:28:00 Test Item Value Reference Range Interpretation Comments POC-GLUCOSE METER 108 mg/dL 70-[address] [facility] 6720 [facility] (test code = [place] 1538) [address] [id number] 05:19:00 Test Item Value Reference Range Interpretation Comments MAGNESIUM (BEAKER) (test code = 1.8 mg/dL 1.6-2.6 627) BASIC METABOLIC [id number] 05:19:00 Test Item Value Reference Range Interpretation [...] PATIEN TS. CBC W/PLT COUNT & AUTO [id number] 04:56:00 Test Item Value Reference Range Interpretation [...] PERCENT (BEAKER) (test code = 2801) POCT-GLUCOSE [id number] 00:15:00 Test Item Value Reference Range Interpretation Comments POC-GLUCOSE METER 104 mg/dL 70-[address] [facility] 6720 (BEAKER) (test code = CRISTINE Siddiqi [place] 1538) 113[address] BLOOD [id number] 11:00:00 Test Item Value Reference Range Interpretation Comments CULTURE (BEAKER) (test No growth in 5 days code = 1095) BLOOD [id number] 11:00:00 Test Item Value Reference Range Interpretation Comments CULTURE (BEAKER) (test No growth in 5 days code = 1095) [id number] 06:39:00 Test Item Value Reference Range Interpretation Comments MAGNESIUM (BEAKER) 2.2 mg/dL 1.6-2.6 Specimen slightly (test code = 627) hemolyzed BASIC METABOLIC [id number] 06:39:00 Test Item Value Reference Range Interpretation [...] PATIEN TS. CBC W/PLT COUNT & AUTO [id number] 06:02:00 Test Item Value Reference Range Interpretation [...] FL, ESOPH, SWALLOW FUNCTION, WITH CINE OR [id number] 13:56:00Reason for exam:->dysphagiaFINAL REPORT INDICATION: Dysphagia. TECHNIQUE: [...] Locketteport Verified Date/Time: 02/11/2018 13:56:12 Reading Location: [place] [id number] Ortho Consult Reading Room POCT-GLUCOSE [id number] 06:21:00 Test Item Value Reference Range Interpretation Comments POC-GLUCOSE METER 119 mg/dL 70-[address] [facility] 6720 (BEAKER) (test code = CRISTINE Siddiqi [place] 1538) [address] [id number] 05:33:00 Test Item Value Reference Range Interpretation Comments MAGNESIUM (BEAKER) (test code = 1.7 mg/dL 1.6-2.6 627) BASIC METABOLIC [id number] 05:33:00 Test Item Value Reference Range Interpretation [...] PATIEN TS. CBC W/PLT COUNT & AUTO [id number] 05:14:00 Test Item Value Reference Range Interpretation [...] 417) IMMATURE GRANULOCYTES-RELATIVE 1 % 0-1 PERCENT ([facility] (test code = 2801) POCT-GLUCOSE [id number] 23:54:00 Test Item Value Reference Range Interpretation Comments POC-GLUCOSE METER 125 mg/dL 70-110 H TESTED AT [place] [address] ([facility]) (test code = [facility]iq[facility] 1538) 49580 POCT-GLUCOSE [id number] 18:08:00 Test Item Value Reference Range Interpretation Comments POC-GLUCOSE METER 106 mg/dL 70-110 TESTED AT [place] [address] ([facility]) (test code = [facility] Neeru [facility] 1538) [address]43 POCT-GLUCOSE [id number] 13:26:00 Test Item Value Reference Range Interpretation Comments POC-GLUCOSE METER 122 mg/dL 70-110 H TESTED AT [place] [address] ([facility]) (test code = [facility] 1538) 44600 POCT-GLUCOSE [id number] 06:11:00 Test Item Value Reference Range Interpretation Comments POC-GLUCOSE METER 121 mg/dL 70-110 H TESTED AT [place] [address] ([facility]) (test code = [facility] 1538) 596[address] VANCOMYCIN LEVEL, [id number] 02:13:00 Test Item Value Reference Range Interpretation Comments VANCOMYCIN TROUGH (BEAKER) (test 7.7 ug/mL 10.0-20.0 L code = 522) [id number] 02:00:00 Test Item Value Reference Range Interpretation Comments MAGNESIUM (BEAKER) (test code = 1.7 mg/dL 1.6-2.6 627) BASIC METABOLIC [id number] 02:00:00 Test Item Value Reference Range Interpretation [...] PATIEN TS. CBC W/PLT COUNT & AUTO [id number] 01:46:00 Test Item Value Reference Range Interpretation [...] PERCENT (BEAKER) (test code = 2801) POCT-GLUCOSE [id number] 00:38:00 Test Item Value Reference Range Interpretation Comments POC-GLUCOSE METER 116 mg/dL 70-110 H TESTED AT [place] [address] ([facility]) (test code = CRISTINE Siddiqi [facility] 1538) 17048 POCT-GLUCOSE [id number] 18:06:00 Test Item Value Reference Range Interpretation Comments POC-GLUCOSE METER 118 mg/dL 70-110 H TESTED AT [place] [address] ([facility]) (test code = CRISTINE Siddiqi [facility] 1538) 45598 POCT-GLUCOSE [id number] 12:07:00 Test Item Value Reference Range Interpretation Comments POC-GLUCOSE METER 126 mg/dL 70-110 H TESTED AT [place] [address] ([facility]) (test code = CRISTINE Siddiqi [facility] 1538) 34105 URINE [id number] 10:54:00 Test Item Value Reference Range Interpretation Comments CULTURE ([facility]) (test CITROBACTER A >100, 000 col/mL code = 1095) WERKMANNI Citrobacter weralexusi Amikacin (test code = S 1) Aztreonam [...] = 47) CBC W/PLT COUNT & AUTO [id number] 10:20:00 Test Item Value Reference Range Interpretation [...] 0-1 PERCENT (BEAKER) (test code = 2801) [id number] 09:52:00 Test Item Value Reference Range Interpretation Comments MAGNESIUM (BEAKER) (test code = 1.6 mg/dL 1.6-2.6 627) BASIC METABOLIC [id number] 09:52:00 Test Item Value Reference Range Interpretation [...] NOT APPLICABLE FOR DIALYSIS PATIEN TS. POCT-GLUCOSE [id number] 06:02:00 Test Item Value Reference Range Interpretation Comments POC-GLUCOSE METER 117 mg/dL 70-[address] [facility] 6720 (BEAKER) (test code = [place] 1538) [address] SPUTUM CULTURE + GRAM [id number] 13:31:00 Test Item Value Reference Interpretation Comments [...] 0-5 epithelial (BEAKER) (test code = cells 559717) GRAM STAIN RESULT 4+ gram negative (BEAKER) (test code = coccobacilli 806454) GRAM STAIN RESULT 4+ gram positive (BEAKER) (test code = cocci in chains, 665299) pairs and clusters 3+ Normal respiratory carla presentPOCT-GLUCOSE [id number] 12:11:00 Test Item Value Reference Range Interpretation Comments POC-GLUCOSE METER 130 mg/dL 70-[address] [facility] 6720 ([facility]) (test code = [facility] 1538) 35711 CBC W/PLT COUNT & AUTO [id number] 11:19:00 Test Item Value Reference Range Interpretation [...] 762) LARGE PLT(BEAKER) (test code = Present 2153) VANCOMYCIN LEVEL, [id number] 10:54:00 Test Item Value Reference Range Interpretation Comments VANCOMYCIN TROUGH (BEAKER) (test 4.9 ug/mL 10.0-20.0 L code = 522) [id number] 05:55:00 Test Item Value Reference Range Interpretation Comments MAGNESIUM (BEAKER) 2.1 mg/dL 1.6-2.6 Specimen slightly (test code = 627) hemolyzed BASIC METABOLIC [id number] 05:55:00 Test Item Value Reference Range Interpretation [...] NOT APPLICABLE FOR DIALYSIS PATIEN TS. POCT-GLUCOSE [id number] 05:54:00 Test Item Value Reference Range Interpretation Comments POC-GLUCOSE METER 142 mg/dL 70-[address] [facility] 6720 (BEAKER) (test code = [place] 1538) [address] POCT-GLUCOSE [id number] 01:01:00 Test Item Value Reference Range Interpretation Comments POC-GLUCOSE METER 128 mg/dL 70-[address] [facility] 6720 (BEAKER) (test code = [place] 1538) 406[address] POCT-GLUCOSE [id number] 17:53:00 Test Item Value Reference Range Interpretation Comments POC-GLUCOSE METER 123 mg/dL 70-[address] [facility] 6720 (BEAKER) (test code = [place] 1538) 97275 POCT-GLUCOSE [id number] 12:36:00 Test Item Value Reference Range Interpretation Comments POC-GLUCOSE METER 136 mg/dL 70-[address] [facility] 6720 (BEAKER) (test code = [place] 1537) 21263 CBC W/PLT COUNT & AUTO [id number] 11:39:00 Test Item Value Reference Range Interpretation Comments WHITE BLOOD CELL COUNT (BEAKER) 14.1 K/ L 3.5-10.5 H (test code [...] (BEAKER) (test code = Normal 762) POCT-GLUCOSE [id number] 07:00:00 Test Item Value Reference Range Interpretation Comments POC-GLUCOSE METER 101 mg/dL 70-[address] [facility] 6720 (BEAKER) (test code = CRISTINE Siddiqi [facility] 1538) [address] BASIC METABOLIC [id number] 06:30:00 Test Item Value Reference Range Interpretation [...] FOR DIALYSIS PATIEN TS. Specimen slightly ictericPROTHROMBIN [id number] 05:52:00 Test Item Value Reference Range Interpretation Comments PROTIME (BEAKER) (test code = 17.4 seconds 11.7-14.7 H 759) INR (BEAKER) (test code = 370) 1.4 <=5.9 RECOMMENDED COUMADIN/WARFARIN INR THERAPY RANGESSTANDARD DOSE: 2.0 - 3.0 Includes: PROPHYLAXIS for venous thrombosis, systemic embolization; TREATMENT for venous thrombosis and/or pulmonary embolus.HIGH RISK: Target INR is 2.5-3.5 for patients with mechanical heart valves.[id number] 05:52:00 Test Item Value Reference Range Interpretation Comments PARTIAL THROMBOPLASTIN TIME 32.3 seconds 22.5-36.0 (BEAKER) (test code = 760) URINALYSIS W/ [id number] 00:07:00 Test Item Value Reference Range Interpretation [...] Rare SOURCE(BEAKER) (test code = 2795) POCT-GLUCOSE [id number] 23:07:00 Test Item Value Reference Range Interpretation Comments POC-GLUCOSE METER 109 mg/dL 70-[address] [facility] 6720 (BEAKER) (test code = CRISTINE ALONZO 1538) [address] RAD, CHEST, 1 VIEW, NON [id number] 21:27:00Reason for exam:->fever, tachypnea, high risk of [...] MDReport Verified Date/Time: 02/06/2018 21:27:48 Reading Location: [address] Body Reading Room POCT-GLUCOSE [id number] 17:40:00 Test Item Value Reference Range Interpretation Comments POC-GLUCOSE METER 108 mg/dL 70-110 TESTED AT [place] [address] ([facility]) (test code = WARRENSILVA Siddiqi [facility] 1538) [address] RAD, ABDOMEN/KUB, 1 VIEW [id number] 17:35:00Reason for exam:->check corpak placementFINAL REPORT AP abdomen HISTORY: Feeding tube COMPARISON: 02/04/2018 IMPRESSION:Feeding tube advanced, remaining along the greater curvature the stomach, not transpyloric. Signed: Christiano Granados Verified Date/Time: 02/06/2018 17:35:54 Reading Location: [facility] Mammo ReadingRoom POCT-GLUCOSE [id number] 11:47:00 Test Item Value Reference Range Interpretation Comments POC-GLUCOSE METER 108 mg/dL 70-110 TESTED AT [place] [address] ([facility]) (test code = [place] [facility] 1538) [address] [id number] 06:20:00 Test Item Value Reference Range Interpretation Comments PHOSPHORUS ([facility]) (test code = 3.2 mg/dL 2.3-4.7 604) [id number] 06:20:00 Test Item Value Reference Range Interpretation Comments MAGNESIUM (BEAKER) (test code = 1.9 mg/dL 1.6-2.6 627) BASIC METABOLIC [id number] 06:20:00 Test Item Value Reference Range Interpretation [...] NOT APPLICABLE FOR DIALYSIS PATIEN TS. POCT-GLUCOSE [id number] 06:18:00 Test Item Value Reference Range Interpretation Comments POC-GLUCOSE METER 117 mg/dL 70-[address] [facility] 6720 (BEAKER) (test code = [place] 1538) [address] CBC W/PLT COUNT & AUTO [id number] 06:00:00 Test Item Value Reference Range Interpretation [...] PERCENT (BEAKER) (test code = 2801) POCT-GLUCOSE [id number] 00:52:00 Test Item Value Reference Range Interpretation Comments POC-GLUCOSE METER 129 mg/dL 70-[address] [facility] 6720 (BEAKER) (test code = CRISTINE [place] 1538) [address] PROTHROMBIN [id number] 00:32:00 Test Item Value Reference Range Interpretation Comments PROTIME (BEAKER) (test code = 15.2 seconds 11.7-14.7 H 759) INR (BEAKER) (test code = 370) 1.2 <=5.9 RECOMMENDED COUMADIN/WARFARIN INR THERAPY RANGESSTANDARD DOSE: 2.0 - 3.0 Includes: PROPHYLAXIS for venous thrombosis, systemic embolization; TREATMENT for venous thrombosis and/or pulmonary embolus.HIGH RISK: Target INR is 2.5-3.5 for patients with mechanical heart valves.POCT-GLUCOSE [id number] 00:25:00 Test Item Value Reference Range Interpretation Comments POC-GLUCOSE METER 113 mg/dL 70-110 H TESTED AT [place] [address] ([facility]) ([facility] 1538) [address] POCT-GLUCOSE [id number] 18:42:00 Test Item Value Reference Range Interpretation Comments POC-GLUCOSE METER 131 mg/dL 70-110 H TESTED AT [place] [address] ([facility]) (test code = [facility] 1538) [address] BASIC METABOLIC [id number] 15:45:00 Test Item Value Reference Range Interpretation [...] NOT APPLICABLE FOR DIALYSIS PATIEN TS. POCT-GLUCOSE [id number] 12:52:00 Test Item Value Reference Range Interpretation Comments POC-GLUCOSE METER 101 mg/dL 70-110 TESTED AT [place] [address] (BEAKER) (test code = CRISTINE Siddiqi [facility] 1538) [address] BASIC METABOLIC [id number] 11:57:00 Test Item Value Reference Range Interpretation [...] S NOT APPLICABLE FOR DIALYSIS PATIEN TS. [id number] 07:51:00 Test Item Value Reference Range Interpretation Comments PHOSPHORUS (BEAKER) (test code = 2.9 mg/dL 2.3-4.7 604) [id number] 07:51:00 Test Item Value Reference Range Interpretation Comments MAGNESIUM (BEAKER) (test code = 2.1 mg/dL 1.6-2.6 627) POCT-GLUCOSE [id number] 05:53:00 Test Item Value Reference Range Interpretation Comments POC-GLUCOSE METER 114 mg/dL 70-[address] [facility] 6720 (BEAKER) (test code = C[place]ST[place] Siddiqi [facility] 1538) [address] CBC W/PLT COUNT & AUTO [id number] 04:49:00 Test Item Value Reference Range Interpretation [...] PERCENT (BEAKER) (test code = 2801) POCT-GLUCOSE [id number] 00:02:00 Test Item Value Reference Range Interpretation Comments POC-GLUCOSE METER 115 mg/dL 70-[address] [facility] 67 [facility] (test code = CRISTINE Siddiqi [facility] 1538) [address] POCT-GLUCOSE [id number] 19:23:00 Test Item Value Reference Range Interpretation Comments POC-GLUCOSE METER 108 mg/dL 70-[address] [facility] 67 ([place]) (test code = CRISTINE Siddiqi [facility] 1538) [address] [id number] 18:25:00 Test Item Value Reference Range Interpretation [...] after PO replacement completedRAD, ABDOMEN/KUB, 1 VIEW [id number] 13:13:00Reason for exam:->corpak Should this be performed at the bedside?->YesFINAL REPORT AP abdomen HISTORY: Feeding tube COMPARISON: None IMPRESSION:Feeding tube present projecting within the stomach. Bowel gas pattern not well assessed but grossly nonobstructive. Signed: Christiano Granados MDReport Verified Date/Time: 02/04/2018 13:13:34 Reading Location: [facility] POCT-GLUCOSE [id number] 12:24:00 Test Item Value Reference Range Interpretation Comments POC-GLUCOSE METER 103 mg/dL 70-110 TESTED AT [place] [address] ([facility]) (test code = [facility] 1538) [address] POCT-GLUCOSE [id number] 06:15:00 Test Item Value Reference Range Interpretation Comments POC-GLUCOSE METER 95 mg/dL 70-[address] [facility] 6720 (BEAKER) (test code = [place] [address] 1538) [id number] 03:37:00 Test Item Value Reference Range Interpretation Comments PHOSPHORUS (BEAKER) (test code = 2.2 mg/dL 2.3-4.7 L 604) [id number] 03:37:00 Test Item Value Reference Range Interpretation Comments MAGNESIUM (BEAKER) (test code = 1.7 mg/dL 1.6-2.6 627) BASIC METABOLIC [id number] 03:37:00 Test Item Value Reference Range Interpretation [...] PATIEN TS. CBC W/PLT COUNT & AUTO [id number] 03:36:00 Test Item Value Reference Range Interpretation [...] PERCENT (BEAKER) (test code = 2801) POCT-GLUCOSE [id number] 00:31:00 Test Item Value Reference Range Interpretation Comments POC-GLUCOSE METER 111 mg/dL 70-[address] [facility] 6720 (BEAKER) (test code = [place]ST[place] 1538) [address] POCT-GLUCOSE [id number] 18:42:00 Test Item Value Reference Range Interpretation Comments POC-GLUCOSE METER 91 mg/dL 70-[address] [facility] 6720 ([facility]) (test code = CRISTINE Siddiqi [facility] [address] 1538) POCT-GLUCOSE [id number] 15:25:00 Test Item Value Reference Range Interpretation Comments POC-GLUCOSE METER 92 mg/dL 70-[address] [facility] 6720 ([facility]) (test code = CRISTINE Siddiqi [facility] [address] 1538) CT BRAIN WITHOUT IV CONTRAST - [id number] 13:09:00Reason for exam:- >follow up EVD removalFINAL [...] and mass effect are stable. Signed: Rosalee Rojasort Verified Date/Time: 02/03/2018 13:09:24 Reading Location: [facility] C013V Neuro Reading Room HEPATITIS PANEL, [id number] 06:20:00 Test Item Value Reference Range Interpretation Comments HEPATITIS A IGM ANTIBODY (BEAKER) Nonreactive Nonreactive (test code = 498) HEPATITIS B CORE IGM ANTIBODY Nonreactive Nonreactive (BEAKER) (test code = 645) HEPATITIS C ANTIBODY (BEAKER) Reactive Nonreactive A (test code = 367) HEPATITIS B SURFACE ANTIGEN (2) Nonreactive Nonreactive (BEAKER) (test code = 2585) [id number] 04:57:00 Test Item Value Reference Range Interpretation Comments MAGNESIUM (BEAKER) (test code = 1.9 mg/dL 1.6-2.6 627) BASIC METABOLIC [id number] 04:57:00 Test Item Value Reference Range Interpretation [...] APPLICABLE FOR DIALYSIS PATIEN TS. HEPATIC FUNCTION [id number] 04:57:00 Test Item Value Reference Range Interpretation [...] (test code = 16 U/L 6-55 347) [id number] 04:56:00 Test Item Value Reference Range Interpretation Comments PHOSPHORUS (BEAKER) (test code = 1.7 mg/dL 2.3-4.7 L 604) CBC W/PLT COUNT & AUTO [id number] 03:59:00 Test Item Value Reference Range Interpretation [...] PERCENT (BEAKER) (test code = 2801) POCT-GLUCOSE [id number] 01:18:00 Test Item Value Reference Range Interpretation Comments POC-GLUCOSE METER 103 mg/dL 70-110 TESTED AT [place] [address] ([facility]) (test code = [facility] 1538) [address] POCT-GLUCOSE [id number] 19:16:00 Test Item Value Reference Range Interpretation Comments POC-GLUCOSE METER 114 mg/dL 70-110 H TESTED AT [place] [address] ([facility]) (test code = [facility] 1538) [address] POCT-GLUCOSE [id number] 13:29:00 Test Item Value Reference Range Interpretation Comments POC-GLUCOSE METER 107 mg/dL 70-110 TESTED AT [place] [address] ([facility]) (test code = [facility] 1538) [address] SPUTUM CULTURE + GRAM [id number] 10:09:00 Test Item Value Reference Range Interpretation Comments CULTURE (BEAKER) 1+ Normal respiratory (test code = 1095) carla present GRAM STAIN RESULT 1+ WBCs (BEAKER) (test code = 1123) GRAM STAIN RESULT 2+ gram positive cocci (BEAKER) (test code = in pairs 96274) GRAM STAIN RESULT 2+ gram positive cocci (BEAKER) (test code = in chains 06166) GRAM STAIN RESULT 0-5 epithelial cells (BEAKER) (test code = 796804) CBC W/PLT COUNT & AUTO [id number] 06:44:00 Test Item Value Reference Range Interpretation [...] PERCENT (BEAKER) (test code = 2801) POCT-GLUCOSE [id number] 06:25:00 Test Item Value Reference Range Interpretation Comments POC-GLUCOSE METER 115 mg/dL 70-[address] [facility] 6720 (BEAKER) (test code = [place] 1530) [address] BLOOD GAS, [id number] 06:22:00 Test Item Value Reference Range Interpretation [...] (BEAKER) (test code = 1819) 21.0 % [id number] 05:44:00 Test Item Value Reference Range Interpretation Comments PHOSPHORUS (BEAKER) (test code = 1.7 mg/dL 2.3-4.7 L 604) [id number] 05:44:00 Test Item Value Reference Range Interpretation Comments MAGNESIUM (BEAKER) (test code = 1.9 mg/dL 1.6-2.6 627) BASIC METABOLIC [id number] 05:44:00 Test Item Value Reference Range Interpretation [...] NOT APPLICABLE FOR DIALYSIS PATIEN TS. POCT-GLUCOSE [id number] 00:49:00 Test Item Value Reference Range Interpretation Comments POC-GLUCOSE METER 124 mg/dL 70-110 H TESTED AT [place] [address] ([facility]) (test code = [facility] 1538) [address] POCT-GLUCOSE [id number] 18:34:00 Test Item Value Reference Range Interpretation Comments POC-GLUCOSE METER 144 mg/dL 70-110 H TESTED AT [place] [address] ([facility]) (test code = [facility] 1538) [address] POCT-GLUCOSE [id number] 12:39:00 Test Item Value Reference Range Interpretation Comments POC-GLUCOSE METER 124 mg/dL 70-110 H TESTED AT [place] [address] ([facility]) (test code = [facility] 1538) [address] BLOOD GAS, [id number] 11:19:00 Test Item Value Reference Range Interpretation [...] % CT BRAIN WITHOUT IV CONTRAST - [id number] 09:26:00Reason for exam:- >ICH with IVHFINAL REPORT [...] Verified Date/Time: 0 02/01/2018 09:26:57 Reading Location: [address] Neuro Reading Room GLOBIN [id number] 08:20:00 Test Item Value Reference Range Interpretation Comments HEMOGLOBIN A1C (BEAKER) (test code = 6.1 % 4.3-6.1 368) RAD, CHEST, 1 VIEW, NON [id number] 07:38:00Reason for exam:- >intubationShould this be performed [...] congestion without remarkable peripheral edema. Signed: Zach Wiseman Verified Date/Time: 02/01/2018 07:38:36 Reading Location: [address] Neuro Reading Room Electro nically signed by: ZACH WISEMAN M.D. on 02/01/2018 07:38 AMPOCT-GLUCOSE [id number] 06:57:00 Test Item Value Reference Range Interpretation Comments POC-GLUCOSE METER 123 mg/dL 70-[address] [facility] 6720 (BEAKER) (test code = [place] 1538) [address] BLOOD GAS, [id number] 04:33:00 Test Item Value Reference Range Interpretation [...] (BEAKER) (test code = 1819) 60.0 % [id number] 04:18:00 Test Item Value Reference Range Interpretation Comments PHOSPHORUS (BEAKER) (test code = 3.4 mg/dL 2.3-4.7 604) [id number] 04:18:00 Test Item Value Reference Range Interpretation Comments MAGNESIUM (BEAKER) (test code = 1.2 mg/dL 1.6-2.6 L 627) BASIC METABOLIC [id number] 04:18:00 Test Item Value Reference Range Interpretation [...] PATIEN TS. CBC W/PLT COUNT & AUTO [id number] 04:06:00 Test Item Value Reference Range Interpretation [...] 0-1 PERCENT (BEAKER) (test code = 2801) [id number] 02:07:00 Test Item Value Reference Range Interpretation Comments RPR SCREEN (BEAKER) (test code = Nonreactive Nonreactive 420) HEPATIC FUNCTION [id number] 22:17:00 Test Item Value Reference Range Interpretation [...] = 19 U/L 6-55 347) CT, CTANGIO [id number] 21:00:00FINAL REPORT CTA carotids and brain 01/31/2018 [...] intracranialAtherosclerotic vascular disease.4. Spondylosis. Signed: Zach Wiseman MDReport Verified Date/Time: 01/31/2018 21:00:54 Reading Location: [facility] Radiology Reading Room [facility], CAROTID, [id number] 21:00:00FINAL REPORT CTA carotids and brain 01/31/2018 [...] Wiseman Verified Date/Time: 01/31/2018 21:00:54 Reading Location: [facility] Radiology Reading Room /FREE T4 IF [id number] 20:05:00 Test Item Value Reference Range Interpretation Comments THYROID STIMULATING HORMONE 2.07 uIU/mL 0.35-4.94 (BEAKER) (test code = 772) VITAMIN B12 AND [id number] 20:05:00 Test Item Value Reference Range Interpretation Comments VITAMIN B12 (BEAKER) (test code = 340 pg/mL 213816 454) FOLATE (BEAKER) (test code = 362) 11.0 ng/mL >=7.0 PROTHROMBIN [id number] 19:56:00 Test Item Value Reference Range Interpretation Comments PROTIME (BEAKER) (test code = 14.1 seconds 11.7-14.7 759) INR (BEAKER) (test code = 370) 1.1 <=5.9 RECOMMENDED COUMADIN/WARFARIN INR THERAPY RANGESSTANDARD DOSE: 2.0 - 3.0 Includes: PROPHYLAXIS for venous thrombosis, systemic embolization; TREATMENT for venous thrombosis and/or pulmonary embolus.HIGH RISK: Target INR is 2.5-3.5 for patients with mechanical heart valves.[id number] 19:56:00 Test Item Value Reference Range Interpretation Comments PARTIAL THROMBOPLASTIN TIME 31.5 seconds 22.5-36.0 (BEAKER) (test code = 760) CBC W/PLT COUNT & AUTO [id number] 19:45:00 Test Item Value Reference Range Interpretation [...] (BEAKER) (test code = 2801) COMPREHENSIVE METABOLIC [id number] 19:30:00 Test Item Value Reference Range Interpretation [...] S NOT APPLICABLE FOR DIALYSIS PATIEN TS. [id number] 19:30:00 Test Item Value Reference Range Interpretation Comments MAGNESIUM (BEAKER) 1.6 mg/dL 1.6-2.6 Specimen slightly (test code = 627) hemolyzed LIPID [id number] 19:30:00 Test Item Value Reference Range Interpretation [...] 130-159 High 160-189 Very High >=190BLOOD GAS, [id number] 19:28:00 Test Item Value Reference Range Interpretation [...] = 1818) RAD, CHEST, 1 VIEW, NON [id number] 17:49:00Post-intubationReason for exam:- >post intubationShould this be [...] MDReport Verified Date/Time: 01/31/2018 17:49:49 Reading Location: [facility] B1 C013W Consult Reading Room
[2023-01-21] MEDS ORDERED: METOPROLOL TAR 25 MG TAB ONE (08:29)
[2023-01-21 08:54] LABS: Absolute Lymphocytes (CBC) 1.3 K/uL (0.7-4.9); Hematocrit 53.3 % (39.6-49.0); Lymphocytes % 26.1 % (15.3-44.8); MCV 95.6 fL (80-100); MPV 8.5 fL (7.6-11.3); RBC Red Blood Cell Count 5.58 M/uL (4.33-5.43)
[2023-01-21 08:55] LABS: Protime INR 1.02
[2023-01-21 09:11] LABS: Magnesium 1.8 mg/dL (1.6-2.4); Potassium 4.2 mmol/L (3.5-5.1); Troponin High Sensitivity 5.5 pg/mL (<58.9)
[2023-01-21 09:14] LABS: SARS-CoV-2 Antigen Rapid Res Negative (Negative)
--- NOTE | 2023-01-21 09:19 | RAD REPORT ---
EXAM DESCRIPTION: CT - Head Brain Wo Cont - 01/21/2023 8:40 am CLINICAL HISTORY: left sided paresthesias, hx of cva COMPARISON: Head Brain Wo Cont dated 01/10/2023; Ct Stroke Brain Wo Cont dated 07/22/2021 TECHNIQUE: Noncontrast head CT images ad were obtained without IV contrast. Multiplanar reformats we re generated and reviewed. All CT scans are performed using dose optimization technique as appropriate and may include automated exposure control or mA/KV adjustment according to patient size. FINDINGS: No intracranial hemorrhage, mass, or edema. Midline structures are unremarkable. Left parietotemporal encephalomalacia, with some left occipital lobe volume loss, and ex vacuo dilati on of the left temporal and occipital horns and ventricular trigone, stable in appearance. Dystrophic calcification along the left posterior parietotemporal cortex. Overlying left parietal craniotomy fl ap. The findings are stable and probably relate to postoperative changes. Mild diffuse parenchymal volume loss. Patchy deep white matter areas of hypoattenuation elsewhere, no nspecific, but suggestive of chronic small vessel ischemic changes. Ventricular caliber is stable. Dean-white matter differentiation elsewhere is preserved, without evidence of acute infarct. No abnor mal extra-axial fluid collections. Mastoid air cells and visualized portions of the paranasal sinuses are clear. No acute bony findings. IMPRESSION: No evidence of an acute intracranial process. Stable chronic findings as above.
--- NOTE | 2023-01-21 09:24 | RAD REPORT ---
EXAM DESCRIPTION: RADChest Single View01/21/2023 8:54 am CLINICAL HISTORY: CHEST PAIN COMPARISON: Chest Single View dated 01/10/2023; Chest Single View dated 07/22/2021; Chest Single View d ated 04/01/2019; Chest Single View dated 02/28/2018 TECHNIQUE: Portable AP view of the chest. FINDINGS: The lungs are clear.Mild left basilar atelectasis. No pneumothorax or effusion. The cardio mediastinal contours are unremarkable. Surgical clips along the right axilla again noted. IMPRESSION: No acute cardiopulmonary process.
[2023-01-21] MEDS ORDERED: LORAZEPAM 1 MG TABLET ONE (09:35)
--- NOTE | 2023-01-21 12:32 | RAD REPORT ---
EXAM DESCRIPTION: MRI - Brain Wo Cont - 01/21/2023 12:05 pm CLINICAL HISTORY: left sided paresthesias, hx of cva COMPARISON: Head CT of the same day TECHNIQUE: Multiplanar multisequence MRI of the brain performed without IV contrast. FINDINGS: Motion artifact somewhat limits evaluation, despite attempts at repeat imaging. Sequelae of prior left parietal craniotomy. No evidence of acute infarct or other diffusion signal abnormality. No evidence of acute intracranial hemorrhage or abnormal extra-axial fluid collections. Moderate diffuse parenchymal volume loss. Ventricular caliber otherwise within normal for age. Midlin e structures are unremarkable. Left parietal and posterior temporal, as well as occipital encephalomalacia, with ex vacuo dilation o f the adjacent lateral ventricle. Confluent subcortical and deep white matter T2/FLAIR hyperintensiti es, nonspecific, but suggestive of chronic small vessel ischemic changes. Sequelae of hemosiderin staining along the right parietal and right posterior temporal sulci. Numerou s peripheral punctate foci of susceptibility signal abnormality along the parasagittal posterior latonya etal lobes and right occipital lobe, could reflect chronic amyloid angiopathy. No mass effect or midline shift. Major vascular flow voids are preserved. Mastoid air cells and paranasal sinuses are clear. IMPRESSION: No acute intracranial process. No evidence of ventriculomegaly, or mass effect Sequelae of prior left parietal craniotomy with underlying encephalomalacia, stable. Remote sequelae of subarachnoid hemorrhage along the right parietal and posterior temporal sulci. Per ipheral punctate foci of susceptibility signal abnormality along the parasagittal posterior parietal lobes and right occipital lobe, could reflect chronic amyloid angiopathy. Other nonspecific deep white matter T2 hyperintensities, most suggestive of chronic small vessel isch emic changes.
--- NOTE | 2023-01-21 13:27 | EDPHYS ---
Physician Documentation [facility] Name: Edmund Caballero Age: 72 yrs Sex: Male : 1950 Arrival Date: 01/21/2023 Time: 08:01 Bed 6 Private MD: Edmund Leigh ED Physician Raad Rivera HPI: 01/21 08:12 This 72 yrs old Male presents to ER via Ambulatory with complaints of Chest Pain, Arm jmm Pain. 08:12 The patient or guardian reports chest pain that is located primarily in the substernal jmm area. Onset: gradually, last night. The pain radiates to the left arm. This is a 72-year-old male with a history of hemorrhagic CVA, hyperlipidemia, hypertension the presents emerged part with complaints of substernal chest pain which patient states started last night. Patient does have pre-existing deficit on the left side secondary to hemorrhagic CVA. Also diagnosed with global aphasia. Family states that patient sometimes has difficulty describing where his pain is at. Patient had a similar episode approximately 12 days ago per family. Patient also complains of worsening paresthesias to the left lower extremity beginning last night as well.. Historical: - Allergies: 08:03 NKA; aa5 - PMHx: 08:03 CVA; hemorrhagic, behavioral deficits/ global aphasia; Hernia; High Cholesterol; aa5 Hypertension; - PSHx: 08:03 Hernia sx; aa5 - Immunization history:: Adult Immunizations unknown. - Social history:: Smoking status: Patient reports the use of cigarette tobacco products, cigars. ROS: 08:12 Constitutional: Negative for fever, chills, and weight loss. jmm 08:12 Cardiovascular: Positive for chest pain. 08:12 Neuro: Positive for numbness. 08:12 All other systems are negative. Exam: 08:12 Head/Face: atraumatic. Eyes: EOMI, no conjunctival erythema appreciated ENT: Moist jmm Mucus Membranes Neck: Trachea midline, Supple Chest/axilla: Normal chest wall appearance and motion. 08:12 Constitutional: The patient appears in no acute distress, alert, awake. 08:12 Cardiovascular: Rate: normal, Rhythm: regular. 08:12 Respiratory: the patient does not display signs of respiratory distress, Respirations: normal, Breath sounds: are clear throughout. 08:12 Abdomen/GI: Inspection: abdomen appears normal, Bowel sounds: normal. 08:12 Musculoskeletal/extremity: No edema appreciated bilaterally, compartments are soft, full dorsalis pedis pulse bilaterally, neurovascular intact. 08:12 Skin: Appearance: Color: normal in color. 08:12 Neuro: Orientation: is normal, Mentation: is normal, Decreased sensation noted to the left lower extremity, motor function is intact. 08:12 Psych: Behavior/mood is pleasant, cooperative. Vital Signs: 08:03 BP 184 / 102; Pulse 74; Resp 15 S; Temp 98.0(TE); Pulse Ox 100% on R/A; aa5 08:59 BP 180 / 91; Pulse 62; Resp 15; Pulse Ox 100% ; bp 10:00 BP 180 / 91; Pulse 61; Resp 18; Pulse Ox 99% on R/A; ph 11:00 BP 175 / 81; Pulse 61; Resp 18; Pulse Ox 99% on R/A; ph 12:00 BP 172 / 89; Pulse 62; Resp 18; Pulse Ox 98% on R/A; ph MDM: 08:14 Patient medically screened. [facility] 13:21 Data reviewed: vital signs, nurses notes. [facility] 01/21 08:12 Order name: Basic Metabolic Panel [facility] 01/21 08:12 Order name: CBC with Diff [facility] 01/21 08:12 Order name: Magnesium [facility] 01/21 08:12 Order name: NT PRO-BNP [facility] 01/21 08:12 Order name: PT-INR [facility] 01/21 08:12 Order name: Troponin HS [facility] 01/21 08:12 Order name: XRAY Chest (1 view) [facility] 01/21 08:12 Order name: EKG; Complete Time: 08:13 [facility] 01/21 08:12 Order name: Cardiac monitoring; Complete Time: 08:15 [facility] 01/21 08:12 Order name: EKG - Nurse/Tech; Complete Time: 08:15 [facility] 01/21 08:12 Order name: Labs collected and sent; Complete Time: 08:32 [facility] 01/21 08:12 Order name: O2 Per Protocol; Complete Time: 08:15 [facility] 01/21 08:12 Order name: O2 Sat Monitoring; Complete Time: 08:15 [facility] 01/21 08:20 Order name: CT Head Brain wo Cont [facility] 03/06 08:20 Order name: SARS RAPID [facility] 01/21 08:55 Order name: Protime (+INR); Complete Time: 08:58 EDMS 01/21 08:58 Order name: CBC with Automated Diff; Complete Time: 08:59 EDMS 01/21 09:12 Order name: Basic Metabolic Panel; Complete Time: 09:15 EDMS 01/21 09:12 Order name: Troponin High Sensitivity; Complete Time: 09:15 EDMS 01/21 09:12 Order name: NT PRO-BNP; Complete Time: 09:15 EDMS 01/21 09:12 Order name: Magnesium; Complete Time: 09:15 EDMS 01/21 09:15 Order name: SARS-COV-2 Antigen Rapid; Complete Time: 09:15 EDMS 01/21 09:17 Order name: MRI - Brain Wo Cont [facility] 01/21 09:20 Order name: CT; Complete Time: 09:20 EDMS 01/21 09:25 Order name: RAD; Complete Time: 09:26 EDMS 01/21 12:09 Order name: Troponin High Sensitivity [facility] 01/21 12:32 Order name: MRI; Complete Time: 12:38 EDMS 01/21 12:55 Order name: Troponin High Sensitivity; Complete Time: 12:58 EDMS Administered Medications: 08:32 Drug: Metoprolol 25 mg Route: PO; ph 12:02 Follow up: Response: No adverse reaction bp 09:33 Drug: Ativan (LORazepam) 1 mg Route: PO; bp 12:02 Follow up: Response: No adverse reaction bp 13:41 Not Given (Other Intervention Used): morphine 2 mg IVP once over 4 mins ph 13:41 Not Given (Other Intervention Used): Zofran (Ondansetron) 4 mg IVP once; over 2 minutes ph Disposition Summary: 01/21/23 13:27 Discharge Ordered Location: Home [facility] Condition: Stable [facility] Diagnosis - Chest pain, unspecified [facility] Followup: [facility] - With: Ketan Prabhakar MD - When: 2 - 3 days - Reason: Recheck today's complaints, Continuance of care, Re-evaluation by your physician Followup: [facility] - With: Hola Connell MD - When: 2 - 3 days - Reason: Recheck today's complaints, Continuance of care, Re-evaluation by your physician Followup: [facility] - With: Guido Montalvo MD - When: 2 - 3 days - Reason: Recheck today's complaints, Continuance of care, Re-evaluation by your physician Discharge Instructions: - Discharge Summary Sheet gerber - Nonspecific Chest Pain, Adult bozena Forms: - Medication Reconciliation Form bozena - Thank You Letter gerber - Antibiotic Education gerber - Prescription Opioid Use bozena Signatures: Dispatcher [employer] EDMS Alberto Greene PA PA jmm Calderon, Audri, RN RN aa5 Melanie Yost, RN RN Javid Harris, RN RN bp
--- NOTE | 2023-01-21 13:27 | ER ---
Nurse's Notes [facility] Name: Edmund Caballero Age: 72 yrs Sex: Male : 1950 Arrival Date: 01/21/2023 Time: 08:01 Bed 6 Private MD: Edmund Leigh Diagnosis: Chest pain, unspecified Presentation: 01/21 08:03 Acuity: KIRK 2 aa5 08:03 Coronavirus screen: At this time, the client does not indicate any symptoms associated aa5 with coronavirus-19. Ebola Screen: Patient denies travel to an Ebola-affected area in the 21 days before illness onset. Initial Sepsis Screen: Does the patient meet any 2 criteria? No. Patient's initial sepsis screen is negative. Does the patient have a suspected source of infection? No. Patient's initial sepsis screen is negative. Risk Assessment: Do you want to hurt yourself or someone else? Patient reports no desire to harm self or others. Onset of symptoms was January 20, 2023. 08:03 Method Of Arrival: Ambulatory aa5 08:03 Chief complaint: Patient states: "my chest doesn't feel right, something is not right". aa5 Pt c/o left arm pain radiating to left side of chest that began yesterday. Pt has aphasia but reports left arm and left foot "doesn't feel right". Pt's daughter states "he was just seen here a week ago for the same symptoms but hasn't been able to follow-up with neurologist because he is no longer at [facility] and we didn't realize that". Triage Assessment: 08:10 General: Appears in no apparent distress. Behavior is cooperative, appropriate for age, bp anxious. Pain: Complains of pain in chest. EENT: No deficits noted. Neuro: No deficits noted. Cardiovascular: Rhythm is sinus rhythm. Respiratory: No deficits noted. GI: No signs and/or symptoms were reported involving the gastrointestinal system. : No signs and/or symptoms were reported regarding the genitourinary system. Derm: No deficits noted. Musculoskeletal: No deficits noted. Historical: - Allergies: 08:03 NKA; aa5 - PMHx: 08:03 CVA; hemorrhagic, behavioral deficits/ global aphasia; Hernia; High Cholesterol; aa5 Hypertension; - PSHx: 08:03 Hernia sx; aa5 - Immunization history:: Adult Immunizations unknown. - Social history:: Smoking status: Patient reports the use of cigarette tobacco products, cigars. Screenin:36 [facility] ED Fall Risk Assessment (Adult) History of falling in the last 3 months, ph including since admission No falls in past 3 months (0 pts) Confusion or Disorientation No (0 pts) Intoxicated or Sedated No (0 pts) Impaired Gait No (0 pts) Mobility Assist Device Used No (0 pt) Altered Elimination No (0 pt) Score/Fall Risk Level 0 - 2 = Low Risk Oriented to surroundings, Maintained a safe environment, Hourly rounding (assess needs \\T\\ fall precautionary measures) done. Abuse screen: Denies threats or abuse. Denies injuries from another. Nutritional screening: No deficits noted. Tuberculosis screening: No symptoms or risk factors identified. Assessment: 08:10 General: SEE TRIAGE NOTE. bp 08:58 Reassessment: PT RETURNED FROM CT. bp 11:00 Reassessment: PT TO MRI. bp 12:00 Reassessment: PT RETURNED FROM MRI. bp 13:17 Reassessment: Provider at bedside to speak w/ pt and family. ph Vital Signs: 08:03 BP 184 / 102; Pulse 74; Resp 15 S; Temp 98.0(TE); Pulse Ox 100% on R/A; aa5 08:59 BP 180 / 91; Pulse 62; Resp 15; Pulse Ox 100% ; bp 10:00 BP 180 / 91; Pulse 61; Resp 18; Pulse Ox 99% on R/A; ph 11:00 BP 175 / 81; Pulse 61; Resp 18; Pulse Ox 99% on R/A; ph 12:00 BP 172 / 89; Pulse 62; Resp 18; Pulse Ox 98% on R/A; ph ED Course: 08:01 Patient arrived in ED. mr 08:01 Edmund Leigh MD is Private Physician. mr 08:03 Arm band placed on Patient placed in an exam room, on a stretcher. aa5 08:09 Alberto Greene PA is PHCP. jm 08:09 Raad Rivera MD is Attending Physician. jmm 08:16 Triage completed. aa5 08:18 Javid Harris, AUNDREA is Primary Nurse. bp 08:35 Initial lab(s) drawn, by me, sent to lab. Missed attempt(s): 22 gauge in right ph antecubital area. Bleeding controlled, band aid applied, catheter tip intact. Patient maintains SpO2 saturation greater than 95% on room air. 08:36 Patient has correct armband on for positive identification. Bed in low position. Call light in reach. Side rails up X 1. Client placed on continuous cardiac and pulse oximetry monitoring. NIBP monitoring applied. Door closed. Noise minimized. Warm blanket given. 08:46 SARS RAPID Sent. ph 08:46 Troponin HS Sent. ph 08:46 PT-INR Sent. ph 08:46 NT PRO-BNP Sent. ph 08:46 Magnesium Sent. ph 08:46 CBC with Diff Sent. ph 08:46 Basic Metabolic Panel Sent. ph 12:28 Troponin High Sensitivity Sent. eh3 12:51 MRI - Brain Wo Cont Sent. bp 12:51 XRAY Chest (1 view) Sent. bp 12:51 CT Head Brain wo Cont Sent. bp 13:17 No provider procedures requiring assistance completed. IV discontinued, intact, ph bleeding controlled, No redness/swelling at site. Pressure dressing applied. 13:26 Ketan Prabhakar MD is Referral Physician. [facility] 13:26 Hola Connell MD is Referral Physician. [facility] 13:26 Guido Montalvo MD is Referral Physician. [facility] Administered Medications: 08:32 Drug: Metoprolol 25 mg Route: PO; ph 12:02 Follow up: Response: No adverse reaction bp 09:33 Drug: Ativan (LORazepam) 1 mg Route: PO; bp 12:02 Follow up: Response: No adverse reaction bp 13:41 Not Given (Other Intervention Used): morphine 2 mg IVP once over 4 mins ph 13:41 Not Given (Other Intervention Used): Zofran (Ondansetron) 4 mg IVP once; over 2 minutes ph Medication: 08:36 VIS not applicable for this client. ph Outcome: 13:27 Discharge ordered by . [facility] 13:46 Patient left the ED. ph Signatures: Alberto Greene PA PA toña Marily KathleenCheryl, RN RN aa5 Melanie Yost RN RN Javid Harris, RN AUNDREA bp Shirley Yost RN RN eh3
[2023-01-21 13:58] VITALS: TEMP 98
[2023-01-21 14:03] VITALS: BP 172/89; O2SAT 98
--- NOTE | 2023-01-21 16:36 | EKG ---
Test Date: 2023-01-21 Test Time: 08:09:20 Spinning Lathe Operator Automatic: JOLANTA MEASUREMENT RESULTS: Intervals: Rate: 84 MD: 140 QRSD: 76 QT: 382 QTc: 451 [place]: P: 64 MD: 140 QRS: 15 T: 17 INTERPRETIVE STATEMENTS: Normal sinus rhythm Normal ECG Compared to ECG 01/10/2023 12:19:19 Left ventricular hypertrophy no longer present Electronically Signed On 01-21-23 16:35:26 TEST CARRIER by Ketan Prabhakar
== END 2023-01-21 13:46 | disposition home or self-care (01) ==
LOC: ER 08:00
DX: R07.89 Other chest pain (principal); I10 Essential (primary) hypertension; Z72.0 Tobacco use; Z20.822 Contact with and (suspected) exposure to COVID-19
CPT/HCPCS: 36415; 70450; 70551; 71045; 80048; 83735; 83880; 84484; 85025; 85610; 87811; 93005; 99285

== ENCOUNTER 2023-10-23 15:13 | Observation (INO) | payer OTHER ==
--- NOTE | 2023-10-23 15:51 | RAD REPORT ---
EXAM DESCRIPTION: CT - Ct Stroke Brain Wo Cont - 10/23/2023 3:35 pm CLINICAL HISTORY: code stroke Headache, drowsiness, CVA symptomology COMPARISON: Head angio dated 03/09/2023; Ct Stroke Brain Wo Cont dated 03/09/2023 TECHNIQUE: All CT scans are performed using dose optimization technique as appropriate and may inclu de automated exposure control or mA/KV adjustment according to patient size. FINDINGS: No intracranial hemorrhage, hydrocephalus or extra-axial fluid collection.Mild generalized brain atrophy is present with moderate periventricular and deep white matter chronic microvascular i schemic changes.Large area of gliosis is seen in the distribution of the left posterior cerebral rip ry compatible with remote infarct. The paranasal sinuses and mastoids are clear. The calvarium is intact. IMPRESSION: No acute intracranial abnormality. 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 The findings were discussed with Dr. Kingston in the ER On 10/23/2023 at 3:33 p.m. by telephone.
[2023-10-23 15:52] LABS: Absolute Lymphocytes (CBC) 1.9 K/uL (0.7-4.9); Hematocrit 51.5 % (39.6-49.0); Lymphocytes % 24.9 % (15.3-44.8); MCV 98.2 fL (80-100); Platelets 151 thou/uL (152-406); RBC Red Blood Cell Count 5.24 M/uL (4.33-5.43)
--- NOTE | 2023-10-23 16:05 | RAD REPORT ---
EXAM DESCRIPTION: CT - Head angio - 10/23/2023 3:38 pm CLINICAL HISTORY: code stroke COMPARISON: Ct Stroke Brain Wo Cont dated 10/23/2023; Head angio dated 03/09/2023 TECHNIQUE: CT angiography of the head was performed with MIPs. All CT scans are performed using dose optimization technique as appropriate and may include automated exposure control or mA/KV adjustment according to patient size. FINDINGS: No evidence of large vessel occlusion. No evidence of aneurysm is detected. No flow-limiti ng stenosis or vascular malformation identified. Antegrade flow is seen in the vertebral arteries. Left vertebral artery is mildly dominant. The visualized dural venous sinuses are patent. IMPRESSION: No significant flow abnormality is detected.
--- NOTE | 2023-10-23 16:09 | RAD REPORT ---
EXAM DESCRIPTION: CT - Neck Angio - 10/23/2023 3:39 pm CLINICAL HISTORY: code stroke COMPARISON: No comparisons TECHNIQUE: CT angiography of the neck vessels was performed with MIPs. All CT scans are performed using dose optimization technique as appropriate and may include automated exposure control or mA/KV adjustment according to patient size. FINDINGS: A left aortic arch is identified with normal three vessel configuration of the great vesse ls. No significant flow abnormality is seen of the common carotid bilaterally. Moderate hard plaquing is present involving both proximal internal carotid arteries, more severe on t he left. Stenosis on the left estimated at 70-80% based on NASCET criteria. Stenosis on the right est imated at 50%. Normal flow is seen within both vertebral arteries. IMPRESSION: Significant hard plaquing is present in both internal carotid arteries proximally, great er on the left. The findings result in significant stenosis left proximal ICA estimated at 70-80% bas ed on NASCET criteria. Right-sided stenosis estimated at 50%. NASCET criteria used. Mild 0-49% stenosis Moderate 50-69% stenosis Severe 70-99% stenosis
[2023-10-23 16:11] LABS: Albumin 4.1 g/dL (3.4-5.0); Bilirubin Direct 0.2 mg/dL (0-0.2); Bilirubin Indirect, Calculated 0.9 mg/dL (0.2-0.8); Bilirubin Total 1.1 mg/dL (0.2-1.0); Magnesium 1.7 mg/dL (1.6-2.4); Potassium 4.5 mEq/L (3.5-5.1); Protein, Total 7.2 g/dL (6.4-8.2)
--- NOTE | 2023-10-23 16:19 | RAD REPORT ---
EXAM DESCRIPTION: RAD - Chest Single View - 10/23/2023 4:09 pm CLINICAL HISTORY: aphasia Chest pain. COMPARISON: <Comparisons> FINDINGS: Portable technique limits examination quality. The lungs are grossly clear. The heart is mildly enlarged in size. No displaced fractures.Right axill tomy rolando dissection clips. IMPRESSION: No acute intrathoracic process suspected.
--- NOTE | 2023-10-23 16:59 | ER ---
Nurse's Notes [facility] Name: Edmund Caballero Age: 73 yrs Sex: Male : 1950 Arrival Date: 10/23/2023 Time: 15:13 Bed 8 Private MD: Diagnosis: Aphasia Presentation: 10/23 15:20 Chief complaint: Patient states: STARTED NOT FEELING RIGHT AND MORE CONFUSED. UNABLE TO db GET WORDS OUT. CAREGIVER STATES SYMPTOMS STARTED ON SATURDAY. PT IS NORMALLY CONFUSED BUT IS MORE CONFUSED. PT UNSURE WHEN SYMPTOMS STARTED. CAREGIVER STATES SYMPTOMS STARTED SATURDAY. Coronavirus screen: Client denies travel out of the [place] in the last 14 days. At this time, the client does not indicate any symptoms associated with coronavirus-19. Ebola Screen: Patient negative for fever greater than or equal to 101.5 degrees Fahrenheit, and additional compatible Ebola Virus Disease symptoms Patient denies exposure to infectious person. Patient denies travel to an Ebola-affected area in the 21 days before illness onset. No symptoms or risks identified at this time. Initial Sepsis Screen: Does the patient meet any 2 criteria? No. Patient's initial sepsis screen is negative. Does the patient have a suspected source of infection? No. Patient's initial sepsis screen is negative. Initial Sepsis Screen: Does the patient meet any 2 criteria? Altered Mental Status. Risk Assessment: Do you want to hurt yourself or someone else? Patient reports no desire to harm self or others. Onset of symptoms was October 23, 2023. 15:20 Method Of Arrival: Ambulatory db 15:20 Acuity: KIRK 2 db Triage Assessment: 15:22 General: Appears in no apparent distress. uncomfortable, Behavior is anxious. Pain: db Denies pain. Neuro: Level of Consciousness is awake, alert, obeys commands, Oriented to person, place, situation, Moves all extremities. Speech is slurred, with expressive aphasia noted, HAS HISTORY OF STROKE. Historical: - Allergies: 15:22 NKA; db - PMHx: 15:22 CVA; hemorrhagic; Hypertension; High Cholesterol; Hernia; db - PSHx: 15:22 Hernia sx; db - Immunization history:: Adult Immunizations unknown. - Social history:: Smoking status: unknown. - Family history:: not pertinent. Assessment: 15:22 Reassessment: CODE STROKE CALLED. db 15:24 Reassessment: PATIENT TO CT. db 15:45 Reassessment: Pt arrived in bed from CT scan . rs5 15:45 VAN Scoring: Arm Drift: Patients demonstrates NO arm weakness. Patient is VAN Negative. rs5 Visual Disturbance: No visual disturbance noted. Aphasia: Expressive aphasia noted. Provider notified of +VAN scoring. Neglect: No neglect noted. Elif Swallow Protocol Brief Cognitive Screen What is your name? Normal, Where are you right now? Abnormal: Pt is unsure where he is. What year is it? Abnormal: Pt is unsure of current year. Oral Mechanism Examination 3 oz Water Swallow Challenge: Pt able to drink all water without stopping, coughing, choking or throat clearing: Yes Result: PASS MD Notified: Raad Rivera MD. TNKase (Tenecteplase) Screening: Contraindications: Patient reports onset of signs and symptoms of stroke greater than 6 hours ago: Yes. 15:45 General: Appears in no apparent distress. uncomfortable, Behavior is calm, cooperative. rs5 Pain: Denies pain. Neuro: Level of Consciousness is awake, alert, confused, Oriented to person, Not oriented to place, time, date of or situation. Supervisor Coremaker are equal bilaterally Full function hand(s) arm(s) Pt unable to follow verbal commands for leg, foot, strength assessment . Speech with expressive aphasia noted, Facial symmetry appears normal, Pupils are PERRLA, Pupil Size: 3 mm Intact Denies blurred vision headache. 15:45 Cardiovascular: Heart tones S1 S2 present Patient's skin is warm and dry. Rhythm is rs5 regular. Respiratory: Airway is patent Respiratory effort is even, unlabored, Respiratory pattern is regular, symmetrical, Breath sounds are clear bilaterally. GI: Abdomen is round non-distended, Bowel sounds present X 4 quads. Abd is soft and non tender X 4 quads. Patient currently denies nausea. : No signs and/or symptoms were reported regarding the genitourinary system. EENT: No signs and/or symptoms were reported regarding the EENT system. Derm: Skin is intact, Skin is dry, Skin is normal, Skin temperature is warm. Musculoskeletal: Range of motion: intact in all extremities. 16:00 Reassessment: No changes from previously documented assessment. rs5 16:30 Reassessment: Patient and/or family updated on plan of care and expected duration. Pain rs5 level reassessed. Patient denies pain at this time. Neuro: Level of Consciousness is awake, alert, confused, Oriented to person, Supervisor Coremaker are equal bilaterally Speech with expressive aphasia noted, Facial symmetry appears normal, Pupils are PERRLA, Pupil Size: 3 mm Intact. Respiratory: Airway is patent Respiratory effort is even, unlabored, Respiratory pattern is regular, symmetrical. 16:40 Reassessment: Provider at bedside. rs5 17:50 Reassessment: No changes from previously documented assessment. rs5 19:02 Reassessment: Patient and/or family updated on plan of care and expected duration. Pain rs5 level reassessed. Neuro: Level of Consciousness is awake, alert, confused, Oriented to person, place, not oriented to time or situation. Supervisor Coremaker are equal bilaterally Moves all extremities. Speech is normal, Facial symmetry appears normal, Pupils are PERRLA, Pupil Size: 3 mm Intact. Respiratory: Airway is patent Respiratory effort is even, unlabored, Respiratory pattern is regular, symmetrical. Vital Signs: 15:20 BP 190 / 115; Pulse 96; Resp 18; Temp 98.4; Pulse Ox 100% ; ll1 15:56 BP 186 / 100; Pulse 76; Resp 19; Pulse Ox 99% on R/A; aa5 16:27 BP 169 / 102; Pulse 81; Resp 16 S; Pulse Ox 97% ; rs5 NIH Stroke Scale Scores: 15:45 NIHSS Score: 6 rs5 ED Course: 15:14 Patient arrived in ED. rg4 15:14 Shelton Trinh MD is Private Physician. rg4 15:17 Raad Rivera MD is Attending Physician. rt 15:22 Triage completed. db 15:22 Arm band placed on right wrist. db 15:30 Inserted saline lock: 22 gauge in right forearm, using aseptic technique. Blood ll1 collected. 15:32 Jesus uLtz, AUNDREA is Primary Nurse. rs5 15:35 Ct Stroke Brain Wo Cont In Process Unspecified. EDMS 15:40 Head angio In Process Unspecified. EDMS 15:41 Neck Angio In Process Unspecified. EDMS 16:11 Stroke CXR 1 View In Process Unspecified. EDMS 16:58 Joey Arreaga MD is Hospitalizing Provider. rt 10/24 12:12 No provider procedures requiring assistance completed. IV discontinued. mb9 Administered Medications: 10/23 18:37 Drug: Aspirin PO 325 mg PO once Route: PO; rs5 19:03 Follow up: Response: No adverse reaction rs5 Outcome: 16:58 Decision to Hospitalize by Provider. rt 10/24 12:12 Patient left the ED. mb9 NIH Stroke Scale - NIH Stroke Score Date: 10/23/2023 Time: 15:45 Total Score = 6 10. Dysarthria (speech clarity - read or repeat words) - 0(Normal) 11. Extinction and Inattention (visual/tactile/auditory/spatial/personal) - 0(No abnormality) 1a. Level of Consciousness (LOC) - 0(Alert) 1b. Level of Consciousness (LOC) (Month \T\ Age) - 2(Neither) 1c. LOC Commands (Open \T\ Closes Eyes/Ent Physician) - 1(One) 2. Best Gaze (Lateral Gaze Paresis) - 0(Normal) 3. Visual Field Loss - 0(No visual loss) 4. Facial Palsy - 0(Normal) 5a. Left Arm: Motor (10-second hold) - 0(No drift) 5b. Right Arm: Motor (10-second hold) - 0(No drift) 6a. Left Leg: Motor (5-second hold - always test supine) - 1(Drift) 6b. Right Leg: Motor (5-second hold - always test supine) - 1(Drift) 7. Limb Ataxia (finger/nose \T\ heel/toure - test with eyes open) - 0(Absent) 8. Sensory Loss (pinprick arms/legs/face) - 0(Normal) 9. Best Language: Aphasia (description/naming/reading) - 1(Mild to moderate aphasia) Initials: rs5 Signatures: Dispatcher [employer] EDMS Cheryl Soto, AUNDREA RN aa5 Veronica Hector rg4 En Terry RN RN ll1 Isabelle Brooke, AUNDREA RN Marily Silva RN RN mb9 Raad Rivera MD MD rt Jesus Lutz RN RN rs5 Adriane Cabral, AUNDREA RN me1 Corrections: (The following items were deleted from the chart) 10/23 15:44 15:20 Pulse 96bpm; Resp 18bpm; Pulse Ox 100%; Temp 98.4F; db ll1 16:20 15:45 VAN Scoring: Arm Drift: Patients demonstrates NO arm weakness. Patient is rs5 VAN Negative. rs5 16:20 15:45 NIHSS Score: 10 rs5 rs5 16:20 16:17 NIHSS Score: 6 me1 rs5 16:44 15:45 Elif Swallow Protocol Brief Cognitive Screen What is your name? Normal, rs5 Where are you right now? Abnormal: Pt is unsure where he is. What year is it? Abnormal: Pt is unsure of current year. Oral Mechanism Examination 3 oz Water Swallow Challenge: Pt able to drink all water without stopping, coughing, choking or throat clearing: Yes Result: PASS MD Notified: Raad Rivera MD rs5 16:44 15:45 TNKase (Tenecteplase) Screening: Indications: Treatment will start within rs5 4.5 hours onset of symptoms: No. rs5 16:44 15:45 VAN Scoring: Arm Drift: Patients demonstrates NO arm weakness. Patient is rs5 VAN Negative. rs5
--- NOTE | 2023-10-23 16:59 | EDPHYS ---
Physician Documentation [facility] Name: Edmund Caballero Age: 73 yrs Sex: Male : 1950 Arrival Date: 10/23/2023 Time: 15:13 Bed 8 Private MD: ED Physician Raad Rivera HPI: 10/23 17:59 This 73 yrs old Male presents to ER via Ambulatory with complaints of Doesn't Feel rt Right, Aphasia. 17:59 WorseningPatient with prior history of CVA with unclear chronic deficits presents to rt the ED for status, confusion, worsening aphasia. This started on Saturday. Denies other acute complaints, symptoms are moderate in severity, no other aggravating elevating factors.. Historical: - Allergies: 15:22 NKA; db - PMHx: 15:22 CVA; hemorrhagic; Hypertension; High Cholesterol; Hernia; db - PSHx: 15:22 Hernia sx; db - Immunization history:: Adult Immunizations unknown. - Social history:: Smoking status: unknown. - Family history:: not pertinent. ROS: 17:59 Constitutional: Negative for fever, chills, and weight loss, Cardiovascular: Negative rt for chest pain, palpitations, and edema, Respiratory: Negative for shortness of breath, cough, wheezing, and pleuritic chest pain, Abdomen/GI: Negative for abdominal pain, nausea, vomiting, diarrhea, and constipation, Skin: Negative for injury, rash, and discoloration, Psych: Negative for depression, anxiety, suicide ideation, homicidal ideation, and hallucinations, 17:59 Neuro: Positive for altered mental status, speech changes, Exam: 17:59 Constitutional: This is a well developed, well nourished patient who is awake, alert, rt and in no acute distress. Head/Face: Normocephalic, atraumatic. Chest/axilla: Normal chest wall appearance and motion. Nontender with no deformity. No lesions are appreciated. Cardiovascular: Regular rate and rhythm with a normal S1 and S2. No gallops, murmurs, or rubs. Normal PMI, no JVD. No pulse deficits. Respiratory: Lungs have equal breath sounds bilaterally, clear to auscultation and percussion. No rales, rhonchi or wheezes noted. No increased work of breathing, no retractions or nasal flaring. Abdomen/GI: Soft, non-tender, with normal bowel sounds. No distension or tympany. No guarding or rebound. No evidence of tenderness throughout. Skin: Warm, dry with normal turgor. Normal color with no rashes, no lesions, and no evidence of cellulitis. MS/ Extremity: Pulses equal, no cyanosis. Neurovascular intact. Full, normal range of motion. 17:59 Neuro: No obvious cranial nerve deficits, inappropriate words are being spoken, somewhat difficulty comprehending instructions. No lateralizing weakness, sensation is untestable due to comprehension., Vital Signs: 15:20 BP 190 / 115; Pulse 96; Resp 18; Temp 98.4; Pulse Ox 100% ; ll1 15:56 BP 186 / 100; Pulse 76; Resp 19; Pulse Ox 99% on R/A; aa5 16:27 BP 169 / 102; Pulse 81; Resp 16 S; Pulse Ox 97% ; rs5 NIH Stroke Scale Scores: 15:45 NIHSS Score: 6 rs5 MDM: 15:26 Patient medically screened. rt 17:59 Differential diagnosis: CVA, TIA. Data reviewed: vital signs, nurses notes, lab test rt result(s), EKG, radiologic studies. Consideration of Admission/Observation Patient was admitted/placed on observation. Management of patient was discussed with the following: Survey Project Manager: Discussed with neurology, states that patient is appropriate for admission here, medical management only.. I considered the following discharge prescriptions or medication management in the emergency department Medications were administered in the Emergency Department. See MAR. Care significantly affected by the following chronic conditions: CVA. Counseling: I had a detailed discussion with the patient and/or guardian regarding the historical points, exam findings, and any diagnostic results supporting the discharge/admit diagnosis, lab results, radiology results, the need for further work-up and treatment in the hospital. 10/23 15:27 Order name: Basic Metabolic Panel; Complete Time: 16:20 rt 10/23 15:27 Order name: CBC with Diff; Complete Time: 16:20 rt 10/23 15:27 Order name: Hepatic Function; Complete Time: 16:20 rt 10/23 15:27 Order name: High Sensitivity Troponin; Complete Time: 16:20 rt 10/23 15:27 Order name: Magnesium; Complete Time: 16:20 rt 10/23 15:27 Order name: Protime (+inr); Complete Time: 16:20 rt 10/23 15:27 Order name: Ptt, Activated; Complete Time: 16:20 rt 10/23 15:52 Order name: CREATININE WHOLE BLOOD; Complete Time: 16:20 EDMS 10/23 15:57 Order name: Glucose, Ancillary Testing; Complete Time: 16:20 EDMS 10/23 18:37 Order name: Basic Metabolic Panel EDMS 10/23 18:37 Order name: Basic Metabolic Panel EDMS 10/23 18:37 Order name: Basic Metabolic Panel EDMS 10/23 18:37 Order name: Basic Metabolic Panel EDMS 10/23 18:37 Order name: CBC with Automated Diff EDMS 10/23 18:37 Order name: CBC with Automated Diff EDMS 10/23 18:37 Order name: CBC with Automated Diff EDMS 10/23 18:37 Order name: CBC with Automated Diff EDMS 10/23 18:37 Order name: Protime (+INR) EDMS 10/23 18:37 Order name: Protime (+INR) EDMS 10/23 20:55 Order name: Thyroid Stimulating Hormone EDMS 10/23 22:11 Order name: T4,Total EDMS 10/24 03:09 Order name: Creatine Phosphokinase EDMS 10/24 03:09 Order name: Lipid Profile EDMS 10/24 03:09 Order name: T4,Total EDMS 10/24 08:07 Order name: Glucose, Ancillary Testing EDMS 10/23 15:27 Order name: Stroke CXR 1 View; Complete Time: 16:20 rt 10/23 15:34 Order name: Head angio; Complete Time: 16:20 EDMS 10/23 15:34 Order name: Neck Angio; Complete Time: 16:20 EDMS 10/23 15:35 Order name: Ct Stroke Brain Wo Cont; Complete Time: 16:20 EDMS 10/23 19:32 Order name: US; Complete Time: 19:49 EDMS 10/24 09:48 Order name: MRI EDMS 10/23 15:27 Order name: EKG; Complete Time: 15:42 rt 10/23 18:37 Order name: IRF Screen EDMS 10/23 15:27 Order name: Accucheck; Complete Time: 15:56 rt 10/23 15:27 Order name: Cardiac monitoring; Complete Time: 15:56 rt 10/23 15:27 Order name: EKG - Nurse/Tech; Complete Time: 15:56 rt 12 15:27 Order name: IV Saline Lock; Complete Time: 15:56 rt 12 15:27 Order name: Labs collected and sent; Complete Time: 15:56 rt 12 15:27 Order name: NPO; Complete Time: 15:56 rt 12 15:27 Order name: O2 Per Protocol; Complete Time: 15:56 rt 12 15:27 Order name: O2 Sat Monitoring; Complete Time: 16:14 rt 12 15:27 Order name: Stroke Swallow Screen; Complete Time: 16:14 rt Administered Medications: 18:37 Drug: Aspirin PO 325 mg PO once Route: PO; rs5 19:03 Follow up: Response: No adverse reaction rs5 Disposition Summary: 10/23/23 16:58 Hospitalization Ordered Notes: Hospitalization Status: Observation rt Provider: Joey Arreaga rt Condition: Stable rt Problem: new rt Symptoms: are unchanged rt Bed/Room Type: Standard rt Location: [facility] ER HOLD(10/23/23 18:04) Room Assignment: ERHOLD-(10/23/23 18:04) bd Diagnosis - Aphasia rt Forms: - Medication Reconciliation Form rt - SBAR form rt - Leadership Thank You Letter rt NIH Stroke Scale - NIH Stroke Score Date: 10/23/2023 Time: 15:45 Total Score = 6 10. Dysarthria (speech clarity - read or repeat words) - 0(Normal) 11. Extinction and Inattention (visual/tactile/auditory/spatial/personal) - 0(No abnormality) 1a. Level of Consciousness (LOC) - 0(Alert) 1b. Level of Consciousness (LOC) (Month \T\ Age) - 2(Neither) 1c. LOC Commands (Open \T\ Closes Eyes/Auto Wrecker) - 1(One) 2. Best Gaze (Lateral Gaze Paresis) - 0(Normal) 3. Visual Field Loss - 0(No visual loss) 4. Facial Palsy - 0(Normal) 5a. Left Arm: Motor (10-second hold) - 0(No drift) 5b. Right Arm: Motor (10-second hold) - 0(No drift) 6a. Left Leg: Motor (5-second hold - always test supine) - 1(Drift) 6b. Right Leg: Motor (5-second hold - always test supine) - 1(Drift) 7. Limb Ataxia (finger/nose \T\ heel/toure - test with eyes open) - 0(Absent) 8. Sensory Loss (pinprick arms/legs/face) - 0(Normal) 9. Best Language: Aphasia (description/naming/reading) - 1(Mild to moderate aphasia) Initials: rs5 Signatures: Dispatcher [employer] EDMS Irma Lamb Danielle, RN RN db Raad Rivera MD MD rt Jesus Lutz RN RN rs5 Corrections: (The following items were deleted from the chart) 15:44 15:42 Head Angio+CT.RAD.BRZ ordered. EDMS EDMS 15:44 15:42 Neck Angio+CT.RAD.BRZ ordered. EDMS EDMS 15:44 15:42 CT-STROKE BRAIN W/O CONTRAST+CT.RAD.BRZ ordered. EDMS EDMS 18:04 16:58 Telemetry/MedSurg (observation) rt bd 18:04 16:58 rt bd
--- NOTE | 2023-10-23 18:54 | P.HP ---
Certification for Inpatient With expected LOS: <2 Midnights <Paresh Masters - Last Filed: 10/23/23 18:55> Patient History Date of Service: 10/23/23 Reason for admission: Aphasia, confusion, rule out CVA History of Present Illness: Mr. Caballero is a 73-year-old male patient with a history of hypertension, high cholesterol, past hemorrhagic stroke presented to the emergency room with the complaints of does not feel right, aphasia. Patient's daughter is the historian at bedside reports that patient's caregiver called and reported that patient was confused and having difficulty walking. Patient is alert, pleasantly confused denies any acute complaints, denies chest pain, shortness of breath, palpitation. Moving all extremities spontaneously. ED course Vital signs blood pressure 190/115, pulse 96, respiration 18, temperature 98.4, pulse ox 100% on room air EKG showing sinus rhythm heart rate at 96/min and 98 stroke score is 6 Laboratory findings CBC and metabolic panel is reassuring. CT brain without contrast shows no intracranial abnormality. CT neck angio shows right-sided stenosis estimated at 50%, head CT angio shows no significant flow abnormality admitting the patient rule out CVA - Past Medical/Surgical History Diabetic: No -: Dimentia -: forntal lobe syndrome -: hemorragic stroke -: AMS -: HTN -: brain surgery - Social History Alcohol use: No CD- Drugs: No Caffeine use: Yes <Paresh Masters - Last Filed: 10/23/23 18:55> Date of Service: 10/24/23 - Family History Mother -: Heart disease Father -: Hypertension, Lung disease <Joey Arreaga - Last Filed: 10/24/23 08:03> Allergies No Known Allergies Allergy (Verified 03/04/18 22:56) Home Medications: Amlodipine [Norvasc*] 10 mg PO DAILY 03/04/18 Atorvastatin Calcium 20 mg PO BEDTIME 03/04/18 Famotidine 20 mg PO BID 03/04/18 Metoprolol Tartrate 50 mg PO Q12H 03/04/18 lisinopriL [Prinivil*] 20 mg PO DAILY 03/04/18 Review of Systems 10-point ROS is otherwise unremarkable <Paresh Masters - Last Filed: 10/23/23 18:55> Physical Examination - Physical Exam General: Alert, Oriented x3 HEENT: Atraumatic Neck: Supple Respiratory: Clear to auscultation bilaterally, Normal air movement Cardiovascular: No edema, Normal pulses Capillary refill: <2 Seconds Gastrointestinal: Normal bowel sounds, Hypoactive Musculoskeletal: No clubbing, No swelling Neurological: Normal speech, Normal tone, Normal affect, Dementia - Studies Laboratory Data (last 24 hrs) 10/23/23 10/23/23 10/23/23 15:30 15:30 15:30 WBC 7.40 Hgb 18.3 H Hct 51.5 H Plt Count 151 L PT 11.0 INR 1.00 APTT 38.9 H Sodium 140 Potassium 4.5 BUN 11 Creatinine 1.08 Glucose 106 Magnesium 1.7 Total Bilirubin 1.1 H AST 19 ALT 26 Alkaline Phosphatase 75 <Paresh Masters - Last Filed: 10/23/23 18:55> - Studies Laboratory Data (last 24 hrs) 10/23/23 10/23/23 10/23/23 15:30 15:30 15:30 WBC 7.40 Hgb 18.3 H Hct 51.5 H Plt Count 151 L PT 11.0 INR 1.00 APTT 38.9 H Sodium 140 Potassium 4.5 BUN 11 Creatinine 1.08 Glucose 106 Magnesium 1.7 Total Bilirubin 1.1 H AST 19 ALT 26 Alkaline Phosphatase 75 <Joey Arreaga - Last Filed: 10/24/23 08:03> Assessment and Plan - Problems (Diagnosis) (1) Hypertension Current Visit: Yes Status: Acute Qualifiers: Hypertension type: primary hypertension Qualified Code(s): I10 - Essential (primary) hypertension (2) HLD (hyperlipidemia) Current Visit: Yes Status: Acute Qualifiers: Hyperlipidemia type: other hyperlipidemia Qualified Code(s): E78.49 - Other hyperlipidemia; E78.4 - Other hyperlipidemia (3) Altered mental status Onset Date: 03/05/18 Current Visit: No Status: Acute Qualifiers: Coma depth: Marcus coma 13-15 (4) history of hemorragic stroke Onset Date: 03/05/18 Current Visit: No Status: Chronic - Plan - Problems (Diagnosis) (1) Hypertension (2) HLD (hyperlipidemia) (3) Altered mental status (4) history of hemorragic stroke * presented to the emergency room with the complaints of does not feel right, aphasia * Patient's daughter is the historian at bedside reports that patient's caregiver called and reported that patient was confused and having difficulty walking * Patient is alert but confused, not remember date of , date. Aphasia have resolved daughter reports that this happened before times * 10/23/2023 CT brain without contrast shows no intracranial abnormality. CT neck angio shows right-sided stenosis estimated at 50%, head CT angio shows no significant flow abnormality * Continue to monitor vital signs close * Patient has risk factors for CVA including hypertension and previous stroke, admitting the patient rule out CVA * Neurology consult to Dr. Peacock * NIHSS =6 * -Allow permissive hypertension for tonight * - q4hr neurochecks * - Ordered MR brain + MRA head/neck * - Ordered TTE * - PT/OT evaluation requested * - Ordered risk profile: lipid panel, TSH * Started aspirin + atorvastatin CODE STATUSfull code DVT prophylaxisLovenox [id number] diet patient passed swallow study close aspiration precautions Discharge Plan: Home Plan to discharge in: 48 Hours - Advance Directives Does patient have a Living Will: Yes Does patient have a Durable POA for Healthcare: Yes - Code Status/Comfort Care Code Status Assessed: Yes (full code) Code Status: Full Code Physician Review: Patient Assessed, Agree with Above Assessment and Plan Critical Care: No Time Spent Managing Pts Care (In Minutes): 55 (minutes) <Paresh Masters - Last Filed: 10/23/23 18:55> Physician Review Additional Text: Pt seen and examined. I agree with the note by the LADDER OPERATOR. Pt presents with aphasia, ataxia and confusion. He had 3 prior strokes. His daughter noticed that pt was aphasic. On admission, CT head is unremarkable. At bedside, pt was able to make sentences. A/P CVA: Will r/o CVA. CT head is unremarkable. Will allow permissive htn and follow up MRI brain/ MRA. Will continue aspirin. Will do swallow eval before po intake. Pt was allergic to Atorvastatin at home. Will give zetia. Will consult Neurology and PT <Joey Arreaga - Last Filed: 10/24/23 08:03>
[2023-10-23] MEDS ORDERED: NA CHLORIDE 0.9% 1,000 ML IV SCH (19:00)
[2023-10-23] MEDS ORDERED: ASPIRIN 325 MG TAB ONE (19:00)
--- NOTE | 2023-10-23 19:32 | RAD REPORT ---
EXAM DESCRIPTION: US - CP - 10/23/2023 7:16 pm CLINICAL HISTORY: CVA Headache, drowsiness COMPARISON: Neck Angio dated 10/23/2023 TECHNIQUE: Real-time sonographic evaluation of both carotid systems was performed. Doppler interroga tion was performed with waveform tracing bilaterally. FINDINGS: Normal high resistance waveforms are noted in both external carotid arteries. The common c arotid arteries and internal carotid arteries show normal low resistance waveforms. There is moderate predominately hard plaque seen involving both proximal internal carotid artery/ car otid artery bulbs, more severe on the left. The findings do not result in significant elevation in ve locity measurements. Antegrade flow seen in both vertebral arteries. IMPRESSION: Moderate hard plaquing is seen in both proximal internal carotid arteries/carotid artery bulbs, more severe on the left. No significant hemodynamically significant flow alteration identified.
[2023-10-23 20:51] LABS: Thyroid Stimulating Hormone 2.84 uIU/mL (0.358-3.740)
[2023-10-23 22:11] LABS: T4,Total 5.6 ug/dL (4.5-12.1)
[2023-10-23 22:42] VITALS: BMI 23.6
[2023-10-24 02:10] VITALS: O2SAT 98
[2023-10-24 02:24] LABS: Absolute Lymphocytes (CBC) 1.8 K/uL (0.7-4.9); Hematocrit 46.6 % (39.6-49.0); Lymphocytes % 29.4 % (15.3-44.8); MCV 98.4 fL (80-100); MPV 8.9 fL (7.6-11.3); Platelets 145 thou/uL (152-406); RBC Red Blood Cell Count 4.73 M/uL (4.33-5.43)
[2023-10-24 02:25] LABS: Protime INR 1.06
[2023-10-24 03:05] LABS: Potassium 3.5 mEq/L (3.5-5.1); T4,Total 4.7 ug/dL (4.5-12.1)
[2023-10-24 08:20] VITALS: BP 140/82; TEMP 97.8
[2023-10-24] MEDS ORDERED: ASPIRIN EC 81 MG TAB PO SCH (09:00)
[2023-10-24] MEDS ORDERED: CLOPIDOGREL 75 MG TABLET PO SCH (09:00)
[2023-10-24] MEDS ORDERED: ENOXAPARIN 40 MG/0.4 ML SQ SCH (09:00)
--- NOTE | 2023-10-24 09:48 | RAD REPORT ---
EXAM DESCRIPTION: MRI - Brain W/Wo Cont - 10/24/2023 9:32 am CLINICAL HISTORY: aphasia. COMPARISON: head CT October 23, 2023 TECHNIQUE: Axial, sagittal, and coronal magnetic images of the brain were obtained. 17 cc MultiHance administered intravenously FINDINGS: Moderate signal within periventricular, deep and subcortical white matter probably ischemi c changes secondary to small vessel disease Moderate area of cystic encephalomalacia left occipital/parietal lobe secondary to an old bleed. Grad ient echo sequences demonstrate several small old cerebral bleeds The ventricles are normal in caliber. Diffusion-weighted/ ADC mapping sequences do not demonstrate evidence of an acute infarction. No abnormal enhancement within the brain is seen. An extra-axial fluid collection is not noted. Fluid within the sinuses/mastoids is not seen IMPRESSION: No acute intracranial abnormality displayed
[2023-10-24] MEDS ORDERED: ASPIRIN 81 MG CHEWABLE TABLET ONE (10:07)
[2023-10-24] MEDS ORDERED: ENOXAPARIN 40 MG/0.4 ML SQ ONE (10:07)
[2023-10-24] MEDS ORDERED: CLOPIDOGREL 75 MG TABLET ONE (10:07)
[2023-10-24] MEDS ORDERED: INFLUENZA VACCINE (for 6+ mo) 0.5 ML DOSE IMVAC ONE (12:00)
[2023-10-24] MEDS ORDERED: PNEUMOCOCCAL VACCINE 0.5 ML IMVAC ONE (12:00)
--- NOTE | 2023-10-24 17:16 | P.DS ---
Admission Date: 10/23/23 Discharge Date: 10/24/23 Reason for Admission: Aphasia, confusion, rule out CVA - Problems (1) Hypertension Status: Acute Qualifiers: Hypertension type: primary hypertension Qualified Code(s): I10 - Essential (primary) hypertension (2) HLD (hyperlipidemia) Status: Acute Qualifiers: Hyperlipidemia type: other hyperlipidemia Qualified Code(s): E78.49 - Other hyperlipidemia; E78.4 - Other hyperlipidemia (3) Altered mental status Onset Date: 03/05/18 Status: Acute Qualifiers: Coma depth: Alexander coma 13-15 (4) history of hemorragic stroke Onset Date: 03/05/18 Status: Chronic Brief History of Present Illness: Mr. Caballero is a 73-year-old male patient with a history of hypertension, high cholesterol, past hemorrhagic stroke presented to the emergency room with the complaints of does not feel right, aphasia. Patient's daughter is the historian at bedside reports that patient's caregiver called and reported that patient was confused and having difficulty walking. Patient is alert, pleasantly confused denies any acute complaints, denies chest pain, shortness of breath, palpitation. Moving all extremities spontaneously. ED course Vital signs blood pressure 190/115, pulse 96, respiration 18, temperature 98.4, pulse ox 100% on room air EKG showing sinus rhythm heart rate at 96/min and 98 stroke score is 6 Laboratory findings CBC and metabolic panel is reassuring. CT brain without contrast shows no intracranial abnormality. CT neck angio shows right-sided stenosis estimated at 50%, head CT angio shows no significant flow abnormality admitting the patient rule out CVA Hospital Course: Mr. Palacios is a pleasant 73 yrs/m with a past medical history significant for HTN, hemorrhagic stroke, HLD who was admitted to the [facility] on confusion, weakness and slurred speech.on 10/24/2023.. Patient was admitted to the hospital, started on aspirin, plavix and statin. Initial CT brain was negative, MRI of Brain and neck negative done on 10/24/2023. On 10/24/2023, patient was seen on morning rounds and deemed medically stable for discharge. patient was discharged with instructions to schedule follow-up appointments with CPP in 1 week and neurologist in 2 weeks. Patient was provided prescriptions for Zetia 10mg po daily at bedtime .The patient and family members were given the opportunity to ask questions and reported no further questions. <Masters,Paresh - Last Filed: 10/24/23 17:47> Admission Date: 10/23/23 Discharge Date: 10/25/23 Hospital Course: Pt seen and examined. I agree with the note by the HEEL SORTER. Ok to discharge pt. jc home mes as prescribed and follow up with PCP within 1 week <Joey Arreaga - Last Filed: 10/25/23 18:17> Disposition: ROUTINE DISCHARGE Discharge Condition: GOOD Vital Signs/Physical Exam: Temp Pulse Resp BP Pulse Ox 97.8 F 64 17 140/82 97 10/24/23 08:00 10/24/23 08:00 10/24/23 08:00 10/24/23 08:00 10/24/23 08:00 General: Alert, Oriented x1 HEENT: Atraumatic, Normocephalic Neck: Supple, 2+ carotid pulse no bruit Respiratory: Clear to auscultation bilaterally, Normal air movement Cardiovascular: No edema, Normal pulses Capillary refill: <2 Seconds Gastrointestinal: Normal bowel sounds, Soft and benign Laboratory Data at Discharge: WBC 6.00 thou/uL (4.3-10.9) 10/24/23 02:09 Hgb 16.1 g/dL (13.6-17.9) D 10/24/23 02:09 Hct 46.6 % (39.6-49.0) 10/24/23 02:09 Plt Count 145 thou/uL (152-406) L 10/24/23 02:09 PT 11.6 SECONDS (9.5-12.5) 10/24/23 02:09 INR 1.06 10/24/23 02:09 APTT 38.9 SECONDS (24.3-36.9) H 10/23/23 15:30 Sodium 142 mEq/L (136-145) 10/24/23 02:09 Potassium 3.5 mEq/L (3.5-5.1) D 10/24/23 02:09 BUN 11 mg/dL (7-18) 10/24/23 02:09 Creatinine 0.96 mg/dL (0.70-1.30) 10/24/23 02:09 Glucose 98 mg/dL (74-106) 10/24/23 02:09 Magnesium 1.7 mg/dL (1.6-2.4) 10/23/23 15:30 Total Bilirubin 1.1 mg/dL (0.2-1.0) H 10/23/23 15:30 AST 19 U/L (15-37) 10/23/23 15:30 ALT 26 U/L (16-61) 10/23/23 15:30 Alkaline Phosphatase 75 U/L (45-117) 10/23/23 15:30 Triglycerides 198 mg/dL (<150) H 10/24/23 02:09 Cholesterol 237 mg/dL (<200) H 10/24/23 02:09 HDL Cholesterol 45 mg/dL (40-60) 10/24/23 02:09 Cholesterol/HDL Ratio 5.27 10/24/23 02:09 <Paresh Masters - Last Filed: 10/24/23 17:47> Vital Signs/Physical Exam: Temp Pulse Resp BP Pulse Ox 97.8 F 64 17 140/82 97 10/24/23 08:00 10/24/23 08:00 10/24/23 08:00 10/24/23 08:00 10/24/23 08:00 Laboratory Data at Discharge: WBC 6.00 thou/uL (4.3-10.9) 10/24/23 02:09 Hgb 16.1 g/dL (13.6-17.9) D 10/24/23 02:09 Hct 46.6 % (39.6-49.0) 10/24/23 02:09 Plt Count 145 thou/uL (152-406) L 10/24/23 02:09 PT 11.6 SECONDS (9.5-12.5) 10/24/23 02:09 INR 1.06 10/24/23 02:09 APTT 38.9 SECONDS (24.3-36.9) H 10/23/23 15:30 Sodium 142 mEq/L (136-145) 10/24/23 02:09 Potassium 3.5 mEq/L (3.5-5.1) D 10/24/23 02:09 BUN 11 mg/dL (7-18) 10/24/23 02:09 Creatinine 0.96 mg/dL (0.70-1.30) 10/24/23 02:09 Glucose 98 mg/dL (74-106) 10/24/23 02:09 Magnesium 1.7 mg/dL (1.6-2.4) 10/23/23 15:30 Total Bilirubin 1.1 mg/dL (0.2-1.0) H 10/23/23 15:30 AST 19 U/L (15-37) 10/23/23 15:30 ALT 26 U/L (16-61) 10/23/23 15:30 Alkaline Phosphatase 75 U/L (45-117) 10/23/23 15:30 Triglycerides 198 mg/dL (<150) H 10/24/23 02:09 Cholesterol 237 mg/dL (<200) H 10/24/23 02:09 HDL Cholesterol 45 mg/dL (40-60) 10/24/23 02:09 Cholesterol/HDL Ratio 5.27 10/24/23 02:09 <Joey Arreaga - Last Filed: 10/25/23 18:17> Diet: Regular Activity: Ad denisha Time spent managing pt's care (in minutes): 50 (minutes) <Paresh Masters - Last Filed: 10/24/23 17:47> <Joey Arreaga - Last Filed: 10/25/23 18:17> Home Medications: Amlodipine [Norvasc*] 10 mg PO DAILY 03/04/18 Famotidine 20 mg PO BID 03/04/18 Metoprolol Tartrate 50 mg PO Q12H 03/04/18 lisinopriL [Prinivil*] 10 mg PO DAILY AFTER SUPPER 03/04/18 Esomeprazole Magnesium [Nexium] 20 mg PO DAILY 10/24/23 Ezetimibe [Zetia*] 10 mg PO BEDTIME 30 Days #30 tab 10/24/23 New Medications: Ezetimibe [Zetia*] 10 mg PO BEDTIME 30 Days #30 tab Physician Discharge Instructions: Mr. Palacios is a pleasant 73 yrs/m with a past medical history significant for HTN, hemorrhagic stroke, HLD who was admitted to the [facility] on confusion, weakness and slurred speech.on 10/24/2023.. Patient was admitted to the hospital, started on aspirin, plavix and statin. Initial CT brain was negative, MRI of Brain and neck negative done on 10/24/2023. On 10/24/2023, patient was seen on morning rounds and deemed medically stable for discharge. patient was discharged with instructions to schedule follow-up appointments with CPP in 1 week and neurologist in 2 weeks. Patient was provided prescriptions for Zetia 10mg po daily at bedtime .The patient and family members were given the opportunity to ask questions and reported no further questions. Followup: NONE,NONE [Primary Care Provider] -
[2023-10-24] MEDS ORDERED: EZETIMIBE 10 MG TAB PO SCH (21:00)
== END 2023-10-24 12:12 | disposition home or self-care (01) ==
LOC: ER 15:13 → ERHOLD 18:29 → INTOOBSV 18:29
PROVIDERS: ADMIT Hospitalist; ATTEND Hospitalist
DX: R47.01 Aphasia (principal); R41.0 Disorientation, unspecified; I10 Essential (primary) hypertension; E78.00 Pure hypercholesterolemia, unspecified; E78.5 Hyperlipidemia, unspecified; R41.82 Altered mental status, unspecified; Z86.73 Personal history of transient ischemic attack (TIA), and cerebral infarction without residual deficits
CPT/HCPCS: 93005; 85025 ×2; 80048 ×2; 36415; 83735; 82550; 85610 ×2; 80061; 82565; 82947 ×2; 80076; 85730; 84436 ×2; 84443; 84484; 70496; 70498; 70450; 71045; 93880; 70553; 94760; 99284; Q9967; A9577; G0378 ×3; J1650

== ENCOUNTER 2023-10-24 18:21 | Emergency (ER) | payer OTHER ==
[2023-10-24 19:21] LABS: Absolute Lymphocytes (CBC) 1.7 K/uL (0.7-4.9); Hematocrit 49.8 % (39.6-49.0); Lymphocytes % 22.8 % (15.3-44.8); MCV 99.2 fL (80-100); MPV 8.4 fL (7.6-11.3); Platelets 155 thou/uL (152-406); RBC Red Blood Cell Count 5.02 M/uL (4.33-5.43)
[2023-10-24 19:34] LABS: Albumin 3.8 g/dL (3.4-5.0); Bilirubin Total 0.7 mg/dL (0.2-1.0); Potassium 4.4 mEq/L (3.5-5.1)
--- NOTE | 2023-10-24 19:43 | EDPHYS ---
Physician Documentation [facility] [place] Name: Edmund Caballero Age: 73 yrs Sex: Male : 1950 Arrival Date: 10/24/2023 Time: 18:21 Bed 15 Private MD: ED Physician Kedar Hilario HPI: 10/24 18:49 This 73 yrs old Male presents to ER via EMS with complaints of Altered Mental ec2 Status, Low Blood Sugar. 18:49 Patient arrives today for evaluation of altered mental status. Patient was seen here in ec2 the hospital last night where he had an extensive workup for aphasia, had a CT imaging as well as MR and ultimately was discharged this morning. States that he went home, had some alcoholic beverages and somehow PD was called due to altered mental status. Patient denies any falls or traumas or injuries. Denies any other concerns.. 18:51 Of note EMS reports that they had noted borderline blood sugar at 59.. ec2 Historical: - Allergies: 18:42 NKA; eh3 - PMHx: 18:42 CVA; hemorrhagic; Hernia; High Cholesterol; Hypertension; eh3 - PSHx: 18:42 Hernia sx; eh3 - Immunization history:: Adult Immunizations unknown. - Social history:: Smoking status: unknown Patient uses alcohol, on a daily basis. ROS: 18:49 Constitutional: as per hpi ec2 Exam: 18:49 Constitutional: GEN: NAD Head: atraumatic Eyes: EOMI Ears: External ears are ec2 normal. CV: regular rate LUNGS: no respiratory distress ABD: non-distended SKIN: no evidence of rashes MSK: no evidence of trauma NEURO: moves all extremities equally, cranial nerves II through XII intact, strength intact in all 4 extremities, No pronator drift appreciated Vital Signs: 18:40 BP 145 / 97; Pulse 83; Resp 16; Temp 98.3(O); Pulse Ox 98% ; eh3 19:00 BP 173 / 95; Pulse 72; Resp 16; Pulse Ox 99% on R/A; eh3 Blevins Coma Score: 19:00 Eye Response: spontaneous(4). Motor Response: obeys commands(6). Verbal Response: km8 confused(4). Total: 14. MDM: 18:36 Patient medically screened. ec2 18:49 ED course: Patient arrives today for evaluation of altered mental status. Examination ec2 remarkable for well-appearing nontoxic dividual is otherwise in no acute distress. Will obtain lab work to evaluate for electrolyte disturbances, will p.o. challenge the patient as well given the borderline hypoglycemia. Suspect alcohol intoxication causing the patient presentation symptoms. Low suspicion for acute intracranial process given the nonfocal neurologic exam, additionally patient with extensive neurologic workup just in the past 24 hours and I do not feel he requires repeat of this at this time.. 18:51 ED course: external records show that patient had extensive workup that showed a CT ec2 scan of the head that was nonacute as well as CT angio of the head and neck that was nonactionable. Patient did have an MRI that showed no acute intracranial abnormality.. 19:42 Data reviewed: vital signs. ED course: CBC is reassuring, metabolic profile is also ec2 reassuring, alcohol level detectable at 47. Patient is awake and alert, family is present at bedside and requesting discharge. Will discharge home. Return precautions given. . 10/24 18:48 Order name: CBC with Diff; Complete Time: 19:42 ec2 10/24 18:48 Order name: CMP; Complete Time: 19:42 ec2 10/24 18:48 Order name: Ethanol; Complete Time: 19:42 ec2 10/24 18:48 Order name: PO challenge; Complete Time: 19:15 ec2 Administered Medications: No medications were administered Disposition Summary: 10/24/23 19:42 Discharge Ordered Notes: Location: Home ec2 Condition: Stable ec2 Diagnosis - Alcohol use, unspecified with intoxication, uncomplicated ec2 - Altered mental status, unspecified ec2 Followup: ec2 - With: Private Physician - When: - Reason: Re-evaluation by your physician Discharge Instructions: - Discharge Summary Sheet ec2 - Alcohol Intoxication ec2 Forms: - Medication Reconciliation Form ec2 - Thank You Letter ec2 - Antibiotic Education ec2 - Prescription Opioid Use ec2 - Patient Portal Instructions ec2 - Leadership Thank You Letter ec2 Signatures: Dispatcher [employer] Shirley Rodriguez RN RN 3 Kedar Hilario MD MD ec2
--- NOTE | 2023-10-24 19:43 | ER ---
Nurse's Notes [facility] [place] Name: Edmund Caballero Age: 73 yrs Sex: Male : 1950 Arrival Date: 10/24/2023 Time: 18:21 Bed 15 Private MD: Diagnosis: Alcohol use, unspecified with intoxication, uncomplicated;Altered mental status, unspecified Presentation: 10/24 18:40 Chief complaint: EMS states: PD toned out to home due to ETOH abuse, BGL 59, pt eh3 discharged from here earlier today. Ebola Screen: No symptoms or risks identified at this time. Risk Assessment: Do you want to hurt yourself or someone else? Patient reports no desire to harm self or others. Onset of symptoms was October 24, 2023. Care prior to arrival: Medication(s) given: D10, 250mL IV initiated. 20 GA, in the left forearm, Glucose check: 59. 18:40 Acuity: KIRK 2 eh3 18:40 Method Of Arrival: EMS: [facility] eh3 19:00 Coronavirus screen: Client denies travel out of the [place] in the last 14 days. Initial km8 Sepsis Screen: Does the patient meet any 2 criteria? No. Patient's initial sepsis screen is negative. Does the patient have a suspected source of infection? No. Patient's initial sepsis screen is negative. Triage Assessment: 18:42 General: Appears in no apparent distress. uncomfortable, Behavior is cooperative. Pain: eh3 Denies pain. Neuro: Level of Consciousness is awake, obeys commands, Oriented to. Historical: - Allergies: 18:42 NKA; eh3 - PMHx: 18:42 CVA; hemorrhagic; Hernia; High Cholesterol; Hypertension; eh3 - PSHx: 18:42 Hernia sx; eh3 - Immunization history:: Adult Immunizations unknown. - Social history:: Smoking status: unknown Patient uses alcohol, on a daily basis. Screenin:40 [facility] ED Fall Risk Assessment (Adult) Score/Fall Risk Level 0 - 2 = Low Risk. Abuse eh3 screen: Denies threats or abuse. Denies injuries from another. Nutritional screening: No deficits noted. Tuberculosis screening: No symptoms or risk factors identified. Assessment: 18:40 Reassessment: No changes from previously documented assessment. See triage assessment. eh3 19:00 General: Appears in no apparent distress. comfortable, Behavior is calm, cooperative, km8 appropriate for age. General: Smells of alcohol. Pain: Denies pain. Neuro: Euceda Agitation-Sedation Scale (RASS): 0 - Alert and Calm Level of Consciousness is awake, alert, obeys commands, confused, Oriented to person, place. Cardiovascular: Denies chest pain, shortness of breath, Capillary refill < 3 seconds Patient's skin is warm and dry. Respiratory: Airway is patent Respiratory effort is even, unlabored, Respiratory pattern is regular, symmetrical. GI: No signs and/or symptoms were reported involving the gastrointestinal system. : No signs and/or symptoms were reported regarding the genitourinary system. EENT: No signs and/or symptoms were reported regarding the EENT system. Derm: Skin is intact, is healthy with good turgor, Skin is dry, Skin is normal, Skin temperature is warm. Musculoskeletal: No signs and/or symptoms reported regarding the musculoskeletal system. Range of motion: intact in all extremities. Vital Signs: 18:40 BP 145 / 97; Pulse 83; Resp 16; Temp 98.3(O); Pulse Ox 98% ; eh3 19:00 BP 173 / 95; Pulse 72; Resp 16; Pulse Ox 99% on R/A; eh3 Alexander Coma Score: 19:00 Eye Response: spontaneous(4). Motor Response: obeys commands(6). Verbal Response: km8 confused(4). Total: 14. ED Course: 18:22 Patient arrived in ED. iw 18:36 Kedar Hilario MD is Attending Physician. ec2 18:38 Shirley Yost, AUNDREA is Primary Nurse. eh3 18:40 Maintain EMS IV. Dressing intact. Good blood return noted. Site clean \T\ dry. Gauge \T\ eh 3 site: 20g RFA. 18:40 Client placed on continuous cardiac and pulse oximetry monitoring. NIBP monitoring eh3 applied. 18:42 Triage completed. eh3 19:00 Inserted saline lock: 22 gauge in left antecubital area, using aseptic technique. Blood km8 collected. intact, bleeding controlled, No redness/swelling at site. Pressure dressing applied, d/c EMS 20g RFA. Patient maintains SpO2 saturation greater than 95% on room air. 19:00 Warm blanket given. km8 19:00 Assisted with bedpan. Cleaned of incontinence. Linen changed. eh3 19:00 Arm band placed on right wrist. EKG completed in triage. Results shown to MD. EKG km8 completed in triage. Results shown to MD. 19:15 Ethanol Sent. km8 19:15 CMP Sent. km8 19:15 CBC with Diff Sent. km8 19:15 Patient has correct armband on for positive identification. Bed in low position. Call eh3 light in reach. Side rails up X2. Report given to AUNDREA Pruitt. 19:49 No provider procedures requiring assistance completed. km8 19:49 Provided Education on: d/c teaching to daughter. km8 Administered Medications: No medications were administered Medication: 19:00 VIS not applicable for this client. km8 Outcome: 19:42 Discharge ordered by . ec2 19:50 Discharged to home ambulatory, with family, km8 19:50 Condition: good 19:50 Discharge instructions given to family, Instructed on discharge instructions, follow up and referral plans. Demonstrated understanding of instructions, follow-up care, 19:50 Patient left the ED. km8 Signatures: Paola Lopez, RN AUNDREA Shirley Yost RN RN [facility] Kedar Hilario MD MD Sonal Mc, AUNDREA RN 8
[2023-10-24 20:20] VITALS: TEMP 98.3
[2023-10-24 20:25] VITALS: BP 173/95; O2SAT 99
== END 2023-10-24 19:50 | disposition home or self-care (01) ==
LOC: ER 18:21
DX: F10.929 Alcohol use, unspecified with intoxication, unspecified (principal); I10 Essential (primary) hypertension
CPT/HCPCS: 36415; 80053; 82077; 85025; 99285

== ENCOUNTER 2024-05-20 18:09 | Emergency (ER) | payer OTHER ==
--- NOTE | 2024-05-20 18:43 | RAD REPORT ---
EXAM DESCRIPTION: CT - Ct Stroke Brain Wo Cont - 05/20/2024 6:35 pm CLINICAL HISTORY: STROKE ALERT Headache, CVA COMPARISON: <Comparisons> TECHNIQUE: All CT scans are performed using dose optimization technique as appropriate and may inclu de automated exposure control or mA/KV adjustment according to patient size. FINDINGS: No intracranial hemorrhage, hydrocephalus or extra-axial fluid collection.Moderate general ized brain atrophy is present with moderate periventricular and deep white matter chronic microvascul ar ischemic changes.Gliosis is seen in the left occipital lobe likely from remote infarct. The paranasal sinuses and mastoids are clear. The calvarium is intact. IMPRESSION: No acute intracranial abnormality. The findings were discussed with doctor Yusuf in the emergency room on 05/20/2024 at 6:35 p.m. by telephone.
--- NOTE | 2024-05-20 18:52 | RAD REPORT ---
EXAM DESCRIPTION: CT - Head angio - 05/20/2024 6:42 pm CLINICAL HISTORY: ams Headache, CVA COMPARISON: <Comparisons> TECHNIQUE: CT angiography of the head was performed with MIPs. All CT scans are performed using dose optimization technique as appropriate and may include automated exposure control or mA/KV adjustment according to patient size. FINDINGS: No evidence of large vessel occlusion. No evidence of aneurysm is detected. No flow-limiti ng stenosis or vascular malformation identified. Antegrade flow is seen in the vertebral arteries. Left vertebral artery is mildly dominant. The visualized dural venous sinuses are patent. IMPRESSION: No significant flow abnormality is detected.
--- NOTE | 2024-05-20 18:55 | RAD REPORT ---
EXAM DESCRIPTION: CT - Neck Angio - 05/20/2024 6:41 pm CLINICAL HISTORY: PAIN Neck pain, CVA COMPARISON: <Comparisons> TECHNIQUE: CT angiography of the neck vessels was performed with MIPs. All CT scans are performed using dose optimization technique as appropriate and may include automated exposure control or mA/KV adjustment according to patient size. FINDINGS: A left aortic arch is identified with normal three vessel configuration of the great vesse ls. No significant flow abnormality is seen of the common carotid bilaterally. Moderate hard plaquing is seen in both carotid bulbs resulting significant stenosis on the right of 8 0-90% and moderate stenosis on the left of 50-70%. Normal flow is seen within both vertebral arteries. IMPRESSION: Significant hard plaquing in both proximal internal carotid artery is seen. Carotid sten osis is present bilaterally severe on the right. (80-90%) based on NASCET criteria. NASCET criteria used. Mild 0-49% stenosis Moderate 50-69% stenosis Severe 70-99% stenosis
[2024-05-20 19:07] LABS: PT Prothrombin Time 13.3 SECONDS (9.4-12.5); Protime INR 1.22
[2024-05-20 19:08] LABS: Absolute Eosinophils 0.1 K/uL (0-0.5); Absolute Lymphocytes (CBC) 1.8 K/uL (0.7-4.9); Absolute Monocytes 0.7 K/uL (0.1-1.3); Absolute Neutrophil 4.5 K/uL (1.8-8.0); Basophils % 0.5 % (0-1.3); Eosinophils % 1.5 % (0-4.4); Hematocrit 48.9 % (39.6-49.0); Hemoglobin 16.5 g/dL (13.6-17.9); Lymphocytes % 24.9 % (15.3-44.8); MCH 32.2 pg (27.0-35.0); MCHC 33.8 g/dL (32.0-36.0); MCV 95.1 fL (80-100); MPV 8.3 fL (7.6-11.3); Monocytes % 9.5 % (3.3-12.3); Neutrophils % 63.6 % (41.7-73.7); Nucleated Red Blood Cells % 0.3 % (0-0); Platelets 166 thou/uL (152-406); RBC Red Blood Cell Count 5.14 M/uL (4.33-5.43); Red Cell Distribution Width 13.6 % (12.1-15.2)
[2024-05-20] MEDS ORDERED: LORazepam 2 MG/ML VIAL ONE (19:17)
[2024-05-20] MEDS ORDERED: THIAMINE 200 MG/2 ML INJ ONE (19:18)
[2024-05-20] MEDS ORDERED: MULTIVITAMINS 10 ML VIAL (INJ) IV ONE (19:18)
[2024-05-20] MEDS ORDERED: ASPIRIN 81 MG CHEWABLE TABLET ONE (19:18)
[2024-05-20] MEDS ORDERED: FOLIC ACID 5 MG/ML VIAL ONE (19:19)
[2024-05-20] MEDS ORDERED: NA CHLORIDE 0.9% 2,000 ML ONE (19:19)
--- NOTE | 2024-05-20 19:24 | ER ---
Nurse's Notes [facility] Name: Edmund Caballero Age: 73 yrs Sex: Male : 1950 Arrival Date: 05/20/2024 Time: 18:09 Bed 3 Private MD: Diagnosis: Weakness;Alcohol use, unspecified;Occlusion and stenosis of bilateral carotid arteries-moderate hard plaquing both carotid bulbs, right greater than left , right 80-90 % Presentation: 05/20 18:17 Chief complaint: Patient states: PATIENT IS ALTERED. UNABLE TO SPEAK COMPLETE SENTENCES db AND SAY WHAT IS WRONG WITH HIMSELF. HE CAN SAY HIS NAME AND BIRTHDAY. Coronavirus screen: Client denies travel out of the [place] in the last 14 days. At this time, the client does not indicate any symptoms associated with coronavirus-19. Ebola Screen: Patient negative for fever greater than or equal to 101.5 degrees Fahrenheit, and additional compatible Ebola Virus Disease symptoms Patient denies exposure to infectious person. Patient denies travel to an Ebola-affected area in the 21 days before illness onset. No symptoms or risks identified at this time. Initial Sepsis Screen: Does the patient meet any 2 criteria? No. Patient's initial sepsis screen is negative. Does the patient have a suspected source of infection? No. Patient's initial sepsis screen is negative. Risk Assessment: Do you want to hurt yourself or someone else? Patient reports no desire to harm self or others. Onset of symptoms was May 20, 2024. 18:17 Method Of Arrival: Ambulatory db 18:17 Acuity: KIRK 2 db Triage Assessment: 18:17 The onset of the patients symptoms was at an unknown time. The onset of the patients db symptoms was May 20, 2024 at 18:29. General: Appears in no apparent distress. comfortable, Behavior is. Pain:. Neuro: Level of Consciousness is awake, alert, confused, Oriented to person. Historical: - Allergies: 18:20 NKA; db - PMHx: 18:20 CVA; hemorrhagic; Hernia; High Cholesterol; Hypertension; db - PSHx: 18:20 Hernia sx; db - Immunization history:: Adult Immunizations unknown. - Infectious Disease History:: Denies. - Social history:: Patient uses alcohol, on a daily basis. per son in law. Smoking status: unknown. Screenin:12 [facility] ED Fall Risk Assessment (Adult) History of falling in the last 3 months, me1 including since admission No falls in past 3 months (0 pts) Confusion or Disorientation No (0 pts) Intoxicated or Sedated Yes (3 pts) Impaired Gait No (0 pts) Mobility Assist Device Used No (0 pt) Altered Elimination No (0 pt) Score/Fall Risk Level 0 - 2 = Low Risk Maintained a safe environment, Provided non-skid footwear, Hourly rounding (assess needs \T\ fall precautionary measures) done. Abuse screen: Denies threats or abuse. Nutritional screening: No deficits noted. Tuberculosis screening: No symptoms or risk factors identified. Assessment: 18:20 Reassessment: STROKE ALERT CALLED TO ED. db 19:12 VAN Scoring: Arm Drift: Patients demonstrates NO arm weakness. Patient is VAN Negative. me1 Visual Disturbance: Aphasia: Expressive aphasia noted. Provider notified of +VAN scoring. Neglect: No neglect noted. General: Appears in no apparent distress. comfortable, well developed, well nourished, Behavior is calm, cooperative, appropriate for age, Reports Called son in Michael nielson, for information on patient as patient is unable to verbalize why he is here today. Speech is garbled with word salad. Abe reports that patient has a history of 4 strokes and that his speech is clear but most of the time what he says doesn't make sense. Michael also reports that the patient may have been drinking today as he is a daily drinker. Dr Yusuf informed and Michael's phone number given to him. [phone]. Pain: Denies pain. Neuro: Level of Consciousness is awake, alert, obeys commands, Oriented to person, place, situation, difficult to assess orientation due to word salad. This is patient's baseline per conversation with his son in Michael nielson. . Cardiovascular: Patient's skin is warm and dry. Respiratory: Airway Respiratory effort is even, Respiratory pattern is regular, symmetrical. GI: No signs and/or symptoms were reported involving the gastrointestinal system. : No signs and/or symptoms were reported regarding the genitourinary system. EENT: No signs and/or symptoms were reported regarding the EENT system. Derm: Skin is intact, is healthy with good turgor, Skin is pink, warm \T\ dry. Musculoskeletal: No signs and/or symptoms reported regarding the musculoskeletal system. 19:30 [place] Swallow Protocol Exclusion Criteria: Exclusion Criteria Result: Proceed Brief kd3 Cognitive Screen What is your name? Normal, Where are you right now? Normal, What year is it? Normal. Oral Mechanism Examination Facial Symmetry: Normal, Motion: Normal, Lip Closure: Normal, Oral Mechanism Result: Normal. 3 oz Water Swallow Challenge: Pt able to drink all water without stopping, coughing, choking or throat clearing: Yes Result: PASS MD Notified: Kristian Yusuf MD. TNKase (Tenecteplase) Screening: Not Applicable. 19:31 General: Pt's son-in-law arrived at the bedside. Blood work collected and sent to the kd3 lab by the cryptologic technician technical. Pt's speak is clear but pt has word salad. Pt's son-in-law states that the patient is at his baseline. Pt VSS, NAD. Pt provided warm blanket, no further requests. . 20:12 General: Pt requesting to be discharged. Provider will D/C Pt . kd3 Vital Signs: 18:17 BP 149 / 82; Pulse 78; Resp 18; Temp 98.5(O); Pulse Ox 99% on R/A; db 19:12 BP 166 / 78; Pulse 89; Resp 19; Pulse Ox 100% on R/A; kd3 19:34 BP 142 / 81; Pulse 63; Resp 16; Pulse Ox 100% on R/A; kd3 20:13 BP 120 / 66; Pulse 73; Resp 19; Pulse Ox 95% on R/A; kd3 NIH Stroke Scale Scores: 18:17 NIHSS Score: 5 db 19:12 NIHSS Score: 1 [facility] ED Course: 18:09 Patient arrived in ED. im 18:17 Arm band placed on Patient placed in an exam room. db 18:19 Triage completed. db 18:24 Kristian Yusuf MD is Attending Physician. abhilash 18:37 CT Stroke Brain w/o Contrast In Process Unspecified. EDMS 18:43 CT Neck Angio In Process Unspecified. EDMS 18:43 Head angio In Process Unspecified. EDMS 18:47 Adriane Cabral, AUNDREA is Primary Nurse. me1 19:01 XRAY Chest (1 view) In Process Unspecified. EDMS 19:12 Patient has correct armband on for positive identification. Bed in low position. Call me1 light in reach. Side rails up X2. Provided Education on: POC. Verbalized understanding. . Client placed on continuous cardiac and pulse oximetry monitoring. NIBP monitoring applied. surveillance system monitor on. Pulse ox on. NIBP on. 19:12 No provider procedures requiring assistance completed. Initial lab(s) drawn, by ED me1 staff, sent to lab. Inserted saline lock: 22 gauge in right antecubital area, using aseptic technique. 19:21 Acetaminophen Sent. rv1 19:21 ETOH Level Sent. rv1 19:21 Ptt, Activated Sent. rv1 19:21 Salicylate Sent. rv1 19:21 CPK Sent. rv1 19:21 CRP Sent. rv1 19:21 Basic Metabolic Panel Sent. rv1 19:21 LFT's Sent. rv1 19:21 Magnesium Sent. rv1 19:21 NT PRO-BNP Sent. rv1 19:21 Troponin HS Sent. rv1 19:22 Jessie Alvarez MD is Hospitalizing Provider. abhilash 20:12 Simone Peacock MD is Referral Physician. abhilash 20:12 Ketan Prabhakar MD is Referral Physician. abhilash 20:13 IV discontinued, intact, bleeding controlled, No redness/swelling at site. Pressure kd3 dressing applied. 20:16 Primary Nurse role handed off by Adriane Cabral, RN kd3 20:20 Maye Spivey, RN is Primary Nurse. kd3 Administered Medications: 19:30 Drug: foLIC Acid IVPB 1 mg IVPB once Route: IVPB; Site: right antecubital; kd3 20:11 Follow up: IV Status: Completed infusion kd3 19:30 Drug: NS 0.9% IV 1000 ml IV at 1 bolus Per protocol; 1000 mL bolus Route: IV; Rate: 1 kd3 bolus; Site: right antecubital; 20:11 Follow up: IV Status: Order to discontinue infusion kd3 19:30 Drug: Aspirin PO Chewable Tablet 324 mg PO once; 81 mg tablets x 4 Route: PO; kd3 20:11 Follow up: Response: No adverse reaction kd3 19:30 Drug: Banana Bag - (Multivitamin IV 1 amp, NS 0.9% IV 1000 ml, Thiamine IV 100 mg, kd3 foLIC Acid IVPB 1 mg) IV at 125 ml/hr once Route: IV; Rate: 125 ml/hr; Site: right antecubital; 20:11 Follow up: IV Status: Order to discontinue infusion kd3 19:30 Drug: Ativan IVP 1 mg IVP once Route: IVP; Site: right antecubital; kd3 20:11 Follow up: Response: No adverse reaction kd3 Medication: 19:12 VIS not applicable for this client. me1 Outcome: 19:23 Decision to Hospitalize by Provider. abhilash 20:08 Discharge ordered by . abhilash 20:12 Discharged to home ambulatory, with family, kd3 20:12 Condition: stable 20:12 Discharge instructions given to patient, family, Instructed on discharge instructions, follow up and referral plans. Demonstrated understanding of instructions, follow-up care, 20:14 Patient left the ED. kd3 20:20 Patient left the ED. kd3 NIH Stroke Scale - NIH Stroke Score Date: 05/20/2024 Time: 18:17 Total Score = 5 10. Dysarthria (speech clarity - read or repeat words) - 2(Severe) 11. Extinction and Inattention (visual/tactile/auditory/spatial/personal) - 0(No abnormality) 1a. Level of Consciousness (LOC) - 0(Alert) 1b. Level of Consciousness (LOC) (Month \T\ Age) - 2(Neither) 1c. LOC Commands (Open \T\ Closes Eyes/Maintenance Person) - 1(One) 2. Best Gaze (Lateral Gaze Paresis) - 0(Normal) 3. Visual Field Loss - 0(No visual loss) 4. Facial Palsy - 0(Normal) 5a. Left Arm: Motor (10-second hold) - 0(No drift) 5b. Right Arm: Motor (10-second hold) - 0(No drift) 6a. Left Leg: Motor (5-second hold - always test supine) - 0(No drift) 6b. Right Leg: Motor (5-second hold - always test supine) - 0(No drift) 7. Limb Ataxia (finger/nose \T\ heel/toure - test with eyes open) - 0(Absent) 8. Sensory Loss (pinprick arms/legs/face) - 0(Normal) 9. Best Language: Aphasia (description/naming/reading) - 0(No aphasia) Initials: db NIH Stroke Scale - NIH Stroke Score Date: 05/20/2024 Time: 19:12 Total Score = 1 10. Dysarthria (speech clarity - read or repeat words) - 0(Normal) 11. Extinction and Inattention (visual/tactile/auditory/spatial/personal) - 0(No abnormality) 1a. Level of Consciousness (LOC) - 0(Alert) 1b. Level of Consciousness (LOC) (Month \T\ Age) - 0(Both) 1c. LOC Commands (Open \T\ Closes Eyes/Maintenance Person) - 0(Both) 2. Best Gaze (Lateral Gaze Paresis) - 0(Normal) 3. Visual Field Loss - 0(No visual loss) 4. Facial Palsy - 0(Normal) 5a. Left Arm: Motor (10-second hold) - 0(No drift) 5b. Right Arm: Motor (10-second hold) - 0(No drift) 6a. Left Leg: Motor (5-second hold - always test supine) - 0(No drift) 6b. Right Leg: Motor (5-second hold - always test supine) - 0(No drift) 7. Limb Ataxia (finger/nose \T\ heel/toure - test with eyes open) - 0(Absent) 8. Sensory Loss (pinprick arms/legs/face) - 0(Normal) 9. Best Language: Aphasia (description/naming/reading) - 1(Mild to moderate aphasia) Initials: me1 Signatures: Dispatcher [employer] Kristian Barba MD MD cha Doucette, Kyli, RN RN kd3 Isabelle Brooke, Lindsey Mayes RN 1 Zohra Valdivia Michelle, RN RN me1
--- NOTE | 2024-05-20 19:24 | EDPHYS ---
Physician Documentation [facility] Name: Edmund Caballero Age: 73 yrs Sex: Male : 1950 Arrival Date: 05/20/2024 Time: 18:09 Bed 3 Private MD: ED Physician Kristian Yusuf HPI: 05/20 18:51 This 73 yrs old Male presents to ER via Ambulatory with complaints of Altered abhilash Mental Status, S/S of Possible Stroke. 18:51 The patient presents with confusion, trouble concentrating. Onset: The symptoms/episode abhilash began/occurred yesterday. Possible causes: CVA or TIA, drug use, alcohol, head injury, low blood sugar, seizure, sepsis. Associated signs and symptoms: Pertinent positives: confusion. Current symptoms: In the emergency department the patient's symptoms are unchanged from the initial presentation. Patient's baseline: Neuro: alert and fully oriented. It is unknown whether or not the patient has had similar symptoms in the past. Historical: - Allergies: 18:20 NKA; db - PMHx: 18:20 CVA; hemorrhagic; Hernia; High Cholesterol; Hypertension; db - PSHx: 18:20 Hernia sx; db - Immunization history:: Adult Immunizations unknown. - Infectious Disease History:: Denies. - Social history:: Patient uses alcohol, on a daily basis. per son in law. Smoking status: unknown. ROS: 18:53 Constitutional: Negative for fever, chills, and weight loss, Eyes: Negative for injury, abhilash pain, redness, and discharge, ENT: Negative for injury, pain, and discharge, Neck: Negative for injury, pain, and swelling, Cardiovascular: Negative for chest pain, palpitations, and edema, Respiratory: Negative for shortness of breath, cough, wheezing, and pleuritic chest pain, Abdomen/GI: Negative for abdominal pain, nausea, vomiting, diarrhea, and constipation, Back: Negative for injury and pain, : Negative for injury, bleeding, discharge, and swelling, MS/Extremity: Negative for injury and deformity, Skin: Negative for injury, rash, and discoloration, Psych: Negative for depression, anxiety, suicide ideation, homicidal ideation, and hallucinations, Allergy/Immunology: Negative for hives, rash, and allergies, Endocrine: Negative for neck swelling, polydipsia, polyuria, polyphagia, and marked weight changes, Hematologic/Lymphatic: Negative for swollen nodes, abnormal bleeding, and unusual bruising, 18:53 Neuro: Positive for altered mental status, gait disturbance, weakness, Exam: 18:54 Radiologist reports: neg abhilash 18:54 Constitutional: This is a well developed, well nourished patient who is awake, alert, and in no acute distress. Head/Face: Normocephalic, atraumatic. Eyes: Pupils equal round and reactive to light, extra-ocular motions intact. Lids and lashes normal. Conjunctiva and sclera are non-icteric and not injected. Cornea within normal limits. Periorbital areas with no swelling, redness, or edema. ENT: Nares patent. No nasal discharge, no septal abnormalities noted. Tympanic membranes are normal and external auditory canals are clear. Oropharynx with no redness, swelling, or masses, exudates, or evidence of obstruction, uvula midline. Mucous membranes moist. Neck: Trachea midline, no thyromegaly or masses palpated, and no cervical lymphadenopathy. Supple, full range of motion without nuchal rigidity, or vertebral point tenderness. No Meningismus. Chest/axilla: Normal chest wall appearance and motion. Nontender with no deformity. No lesions are appreciated. Cardiovascular: Regular rate and rhythm with a normal S1 and S2. No gallops, murmurs, or rubs. Normal PMI, no JVD. No pulse deficits. Respiratory: Lungs have equal breath sounds bilaterally, clear to auscultation and percussion. No rales, rhonchi or wheezes noted. No increased work of breathing, no retractions or nasal flaring. Abdomen/GI: Soft, non-tender, with normal bowel sounds. No distension or tympany. No guarding or rebound. No evidence of tenderness throughout. Back: No spinal tenderness. No costovertebral tenderness. Full range of motion. Male : Normal genitalia with no discharge or lesions. Skin: Warm, dry with normal turgor. Normal color with no rashes, no lesions, and no evidence of cellulitis. MS/ Extremity: Pulses equal, no cyanosis. Neurovascular intact. Full, normal range of motion. Psych: Awake, alert, with orientation to person, place and time. Behavior, mood, and affect are within normal limits. 18:54 Neuro: Orientation: to person, Not oriented to place, time, situation, Motor: moves all fours, Sensation: no obvious gross deficits, no acute changes, Gait: is unsteady, seizure activity, is not displayed by the patient, Vital Signs: 18:17 BP 149 / 82; Pulse 78; Resp 18; Temp 98.5(O); Pulse Ox 99% on R/A; db 19:12 BP 166 / 78; Pulse 89; Resp 19; Pulse Ox 100% on R/A; kd3 19:34 BP 142 / 81; Pulse 63; Resp 16; Pulse Ox 100% on R/A; kd3 20:13 BP 120 / 66; Pulse 73; Resp 19; Pulse Ox 95% on R/A; kd3 NIH Stroke Scale Scores: 18:17 NIHSS Score: 5 db 19:12 NIHSS Score: 1 me1 MDM: 18:24 Patient medically screened. abhilash 18:55 Differential diagnosis: CVA, TIA, Dementia, Parkinson disease, metabolic disorder, drug abhilash effects. Differential Diagnosis: CVA, electrolyte abnormality, alcohol intoxication, hypoglycemia, intracranial bleed, meningitis, overdose, pneumonia, seizure, sepsis, TIA, UTI, volume depletion. TNKase (Tenecteplase) Screening: Not Applicable. Data reviewed: vital signs, nurses notes, lab test result(s), EKG, radiologic studies, CT scan, plain films. Consideration of Admission/Observation Patient was admitted/placed on observation. Escalation of care including admission/observation considered. I considered the following discharge prescriptions or medication management in the emergency department Medications were administered in the Emergency Department. See MAR. Independent interpretation of the following test(s) in the Emergency Department EKG: See my EKG interpretation above. Test considered but Not performed: MRI: no mri brain. Historians other than the Patient: Family Member: miky. Care significantly affected by the following chronic conditions: Diabetes, Hypertension. Counseling: I had a detailed discussion with the patient and/or guardian regarding the historical points, exam findings, and any diagnostic results supporting the discharge/admit diagnosis, the presence of at least one elevated blood pressure reading (>120/80) during this emergency department visit, lab results, the need for further work-up and treatment in the hospital. 05/20 18:26 Order name: Basic Metabolic Panel; Complete Time: 19:56 abhilash 05/20 18:26 Order name: CBC with Diff; Complete Time: 19:22 [facility] 05/20 18:26 Order name: LFT's; Complete Time: 19:56 [facility] 05/20 18:26 Order name: Magnesium; Complete Time: 19:56 [facility] 05/20 18:26 Order name: NT PRO-BNP; Complete Time: 19:56 [facility] 05/20 18:26 Order name: PT-INR; Complete Time: 19:22 [facility] 05/20 18:26 Order name: Troponin HS; Complete Time: 19:56 [facility] 05/20 18:26 Order name: CRP; Complete Time: 19:56 [facility] 05/20 18:26 Order name: CPK; Complete Time: 19:56 [facility] 05/20 18:53 Order name: Acetaminophen [facility] 05/20 18:53 Order name: ETOH Level [facility] 05/20 18:53 Order name: Ptt, Activated; Complete Time: 20:17 [facility] 05/20 18:53 Order name: Salicylate [facility] 05/20 19:12 Order name: CREATININE WHOLE BLOOD; Complete Time: 19:22 EDMD 05/20 18:26 Order name: XRAY Chest (1 view); Complete Time: 19:56 [facility] 05/20 18:26 Order name: CT Stroke Brain w/o Contrast; Complete Time: 18:58 [facility] 05/20 18:26 Order name: CT Neck Angio; Complete Time: 18:58 [facility] 05/20 18:39 Order name: Head angio; Complete Time: 18:58 EDMD 05/20 18:26 Order name: EKG; Complete Time: 18:26 [facility] 05/20 18:26 Order name: Cardiac monitoring [facility] 05/20 18:26 Order name: EKG - Nurse/Tech [facility] 05/20 18:26 Order name: IV Saline Lock; Complete Time: 19:21 [facility] 05/20 18:26 Order name: Labs collected and sent; Complete Time: 19:21 [facility] 05/20 18:26 Order name: O2 Per Protocol [facility] 05/20 18:26 Order name: O2 Sat Monitoring [facility] 05/20 18:53 Order name: Suicide Screening ([place]); Complete Time: 20:11 [facility] Administered Medications: 19:30 Drug: foLIC Acid IVPB 1 mg IVPB once Route: IVPB; Site: right antecubital; kd3 20:11 Follow up: IV Status: Completed infusion kd3 19:30 Drug: NS 0.9% IV 1000 ml IV at 1 bolus Per protocol; 1000 mL bolus Route: IV; Rate: 1 kd3 bolus; Site: right antecubital; 20:11 Follow up: IV Status: Order to discontinue infusion kd3 19:30 Drug: Aspirin PO Chewable Tablet 324 mg PO once; 81 mg tablets x 4 Route: PO; kd3 20:11 Follow up: Response: No adverse reaction kd3 19:30 Drug: Banana Bag - (Multivitamin IV 1 amp, NS 0.9% IV 1000 ml, Thiamine IV 100 mg, kd3 foLIC Acid IVPB 1 mg) IV at 125 ml/hr once Route: IV; Rate: 125 ml/hr; Site: right antecubital; 20:11 Follow up: IV Status: Order to discontinue infusion kd3 19:30 Drug: Ativan IVP 1 mg IVP once Route: IVP; Site: right antecubital; kd3 20:11 Follow up: Response: No adverse reaction kd3 Disposition Summary: 05/20/24 20:08 Discharge Ordered Notes: Location: Home(05/20/24 20:08) abhilash Problem: new(05/20/24 20:08) abhilash Symptoms: have improved(05/20/24 20:08) abhilash Condition: Stable(05/20/24 20:08) abhilash Diagnosis - Weakness abhilash - Alcohol use, unspecified abhilash - Occlusion and stenosis of bilateral carotid arteries - moderate hard plaquing both abhilash carotid bulbs, right greater than left , right 80-90 % Followup: abhilash - With: Private Physician - When: 2 - 3 days - Reason: Recheck today's complaints, Continuance of care, Re-evaluation by your physician Followup: abhilash - With: Simone Peacock MD - When: 2 - 3 days - Reason: Recheck today's complaints, Re-evaluation by your physician Followup: abhilash - With: Ketan Prabhakar MD - When: 2 - 3 days - Reason: Recheck today's complaints, Re-evaluation by your physician Discharge Instructions: - Discharge Summary Sheet abhilash - Alcohol Use Disorder abhilash - Weakness abhilash - Alcohol Abuse and Nutrition abhilash - Weakness, [id number] abhilash - Aspirin and Your Heart abhilash - Deconditioning abhilash - Carotid Artery Disease abhilash - Carotid Artery Disease, [id number] abhilash Forms: - Medication Reconciliation Form abhilash - Antibiotic Education abhilash - Prescription Opioid Use abhilash - Patient Portal Instructions [facility] - Leadership Thank You Letter [facility] NIH Stroke Scale - NIH Stroke Score Date: 05/20/2024 Time: 18:17 Total Score = 5 10. Dysarthria (speech clarity - read or repeat words) - 2(Severe) 11. Extinction and Inattention (visual/tactile/auditory/spatial/personal) - 0(No abnormality) 1a. Level of Consciousness (LOC) - 0(Alert) 1b. Level of Consciousness (LOC) (Month \T\ Age) - 2(Neither) 1c. LOC Commands (Open \T\ Closes Eyes/Janitorial Assistant) - 1(One) 2. Best Gaze (Lateral Gaze Paresis) - 0(Normal) 3. Visual Field Loss - 0(No visual loss) 4. Facial Palsy - 0(Normal) 5a. Left Arm: Motor (10-second hold) - 0(No drift) 5b. Right Arm: Motor (10-second hold) - 0(No drift) 6a. Left Leg: Motor (5-second hold - always test supine) - 0(No drift) 6b. Right Leg: Motor (5-second hold - always test supine) - 0(No drift) 7. Limb Ataxia (finger/nose \T\ heel/toure - test with eyes open) - 0(Absent) 8. Sensory Loss (pinprick arms/legs/face) - 0(Normal) 9. Best Language: Aphasia (description/naming/reading) - 0(No aphasia) Initials: NIH Stroke Scale - NIH Stroke Score Date: 05/20/2024 Time: 19:12 Total Score = 1 10. Dysarthria (speech clarity - read or repeat words) - 0(Normal) 11. Extinction and Inattention (visual/tactile/auditory/spatial/personal) - 0(No abnormality) 1a. Level of Consciousness (LOC) - 0(Alert) 1b. Level of Consciousness (LOC) (Month \T\ Age) - 0(Both) 1c. LOC Commands (Open \T\ Closes Eyes/Janitorial Assistant) - 0(Both) 2. Best Gaze (Lateral Gaze Paresis) - 0(Normal) 3. Visual Field Loss - 0(No visual loss) 4. Facial Palsy - 0(Normal) 5a. Left Arm: Motor (10-second hold) - 0(No drift) 5b. Right Arm: Motor (10-second hold) - 0(No drift) 6a. Left Leg: Motor (5-second hold - always test supine) - 0(No drift) 6b. Right Leg: Motor (5-second hold - always test supine) - 0(No drift) 7. Limb Ataxia (finger/nose \T\ heel/toure - test with eyes open) - 0(Absent) 8. Sensory Loss (pinprick arms/legs/face) - 0(Normal) 9. Best Language: Aphasia (description/naming/reading) - 1(Mild to moderate aphasia) Initials: me1 Signatures: Dispatcher [employer] EDMS Kristian Yusuf MD MD cha Doucette, Kyli RN RN kd3 Isabelle Brooke, RN RN db Adriane Cabral RN RN me1 Corrections: (The following items were deleted from the chart) 18:26 18:26 BASIC METABOLIC PANEL+C.LAB.BRZ ordered. EDMS EDMS 18:26 18:26 CBC+H.LAB.BRZ ordered. EDMS EDMS 18:26 18:26 HEPATIC FUNCTION+C.LAB.BRZ ordered. EDMS EDMS 18:26 18:26 MAGNESIUM+C.LAB.BRZ ordered. EDMS EDMS 18:26 18:26 PROBNP+C.LAB.BRZ ordered. EDMS EDMS 18:26 18:26 PROTIME (+INR)+COAG.LAB.BRZ ordered. EDMS EDMS 18:26 18:26 Troponin High Sensitivity+C.LAB.BRZ ordered. EDMS EDMS 18:26 18:26 C-REACTIVE PROTEIN+C.LAB.BRZ ordered. EDMS EDMS 18:26 18:26 Urinalysis+U.LAB.BRZ ordered. EDMS EDMS 18:26 18:26 CREATINE PHOSPHOKINASE+C.LAB.BRZ ordered. EDMS EDMS 18:26 18:26 CT-STROKE BRAIN W/O CONTRAST+CT.RAD.BRZ ordered. EDMS EDMS 18:27 18:27 Neck Angio+CT.RAD.BRZ ordered. EDMD EDMS 19:57 19:23 Observation abhilash abhilash 19:57 19:23 Jessie Alvarez cha abhilash 19:57 19:23 Telemetry/MedSurg (Inpatient) abhilash abhilash 19:57 19:23 Fair abhilash abhilash 19:57 19:23 new abhilash abhilash : 19:23 have improved abhilash abhilash 19:23 Standard abhilash abhilash 19:23 abhilash abhilash 19:23 Altered mental status, unspecified abhilash abhilash 19:23 Dysphasia and aphasia abhilash abhilash
[2024-05-20 19:29] LABS: Albumin 3.6 g/dL (3.4-5.0); Albumin/Globulin Ratio 1.4 (1.1-1.8); Anion Gap 10.6 mEq/L (5.0-15.0); Bilirubin Direct 0.2 mg/dL (0-0.2); Bilirubin Indirect, Calculated 1.1 mg/dL (0.2-0.8); Bilirubin Total 1.3 mg/dL (0.2-1.0); C-Reactive Protein 6.54 mg/L (<3.00); Globulin 2.6 g/dL (2.3-3.5); Protein, Total 6.2 g/dL (6.4-8.2); Troponin High Sensitivity 8.6 pg/mL (<58.9)
--- NOTE | 2024-05-20 19:33 | RAD REPORT ---
EXAM DESCRIPTION: RAD - Chest Single View - 05/20/2024 7:00 pm CLINICAL HISTORY: COUGH Chest pain. COMPARISON: <Comparisons> FINDINGS: Portable technique limits examination quality. Mild interstitial pulmonary edema. The heart is mildly prominent size. No displaced fractures. IMPRESSION: Mild CHF.
[2024-05-20 19:37] LABS: Magnesium 1.9 mg/dL (1.6-2.4); Potassium 3.6 mEq/L (3.5-5.1)
[2024-05-20 21:27] VITALS: BP 120/66; TEMP 98.5; O2SAT 95
== END 2024-05-20 20:20 | disposition home or self-care (01) ==
LOC: ER 18:09
DX: R53.1 Weakness (principal); F10.90 Alcohol use, unspecified, uncomplicated; I65.23 Occlusion and stenosis of bilateral carotid arteries; I10 Essential (primary) hypertension; Z86.73 Personal history of transient ischemic attack (TIA), and cerebral infarction without residual deficits; R29.705 NIHSS score 5
CPT/HCPCS: 96365; 96368; 85025; 80048; 36415; 83735; 82550; 85610; 82565; 80076; 85730; 84484; 83880; 86140; 70496; 70498; 70450; 71045; 96375; 99285; 80143; 80179; 82077; Q9967; J3411; J7030

== ENCOUNTER 2024-05-22 17:24 | Emergency (ER) | payer OTHER ==
[2024-05-22] MEDS ORDERED: THIAMINE 200 MG/2 ML INJ ONE (18:23)
--- NOTE | 2024-05-22 19:03 | RAD REPORT ---
EXAM DESCRIPTION: CT - Head Brain Wo Cont - 05/22/2024 6:29 pm CLINICAL HISTORY: Alteration of awareness/confusion COMPARISON: May 20, 2024 TECHNIQUE: Computed axial tomography of the head was obtained. IV contrast was not requested. All CT scans are performed using dose optimization technique as appropriate and may include automated exposure control or mA/KV adjustment according to patient size. FINDINGS: An intracranial bleed is not seen The ventricles are normal in caliber No extra-axial fluid collection is noted. Small old right internal capsule infarct Cystic encephalomalacia left occipital lobe probably secondary to old infarction Mild to moderate low-density areas within periventricular, deep and subcortical white matter likely r epresent ischemic changes secondary to small vessel disease. Fluid within the sinuses/ mastoids is not seen. IMPRESSION: No acute intracranial abnormality is seen If patient's symptoms persist MRI of the brain would be recommended
[2024-05-22 19:07] LABS: Absolute Eosinophils 0.1 K/uL (0-0.5); Absolute Lymphocytes (CBC) 1.5 K/uL (0.7-4.9); Absolute Monocytes 0.6 K/uL (0.1-1.3); Absolute Neutrophil 4.2 K/uL (1.8-8.0); Basophils % 0.6 % (0-1.3); Eosinophils % 1.6 % (0-4.4); Hematocrit 52.1 % (39.6-49.0); Hemoglobin 17.6 g/dL (13.6-17.9); Lymphocytes % 22.6 % (15.3-44.8); MCH 32.6 pg (27.0-35.0); MCHC 33.7 g/dL (32.0-36.0); MCV 96.9 fL (80-100); MPV 9.3 fL (7.6-11.3); Neutrophils % 65.2 % (41.7-73.7); Platelets 174 thou/uL (152-406); RBC Red Blood Cell Count 5.38 M/uL (4.33-5.43); Red Cell Distribution Width 13.7 % (12.1-15.2)
[2024-05-22 19:11] LABS: PT Prothrombin Time 12.3 SECONDS (9.4-12.5); PTT, Activated Partial Thromb 33.9 SECONDS (24.3-36.9); Protime INR 1.12
--- NOTE | 2024-05-22 19:18 | EDPHYS ---
Physician Documentation [facility] Name: Edmund Caballero Age: 73 yrs Sex: Male : 1950 Arrival Date: 05/22/2024 Time: 17:24 Bed 17 Private MD: ED Physician Raad Rivera HPI: 05/22 19:21 This 73 yrs old Male presents to ER via EMS with complaints of Altered Mental Status. rt 19:21 Patient with known vascular dementia presents to the ED with confusion. Patient was rt reportedly found to [facility] [place], not knowing where he was, was brought for well check. Patient denies other acute complaints at this time, symptoms are moderate in severity, no other aggravating or elevating factors.. Historical: - Allergies: 17:30 NKA; rs5 - PMHx: 17:30 CVA; hemorrhagic; High Cholesterol; Hypertension; Hernia; rs5 - PSHx: 17:30 Hernia sx; rs5 - Immunization history:: Adult Immunizations unknown. - Infectious Disease History:: Denies. - Social history:: Smoking status: unknown. - Family history:: not pertinent. ROS: 19:21 Unable to obtain ROS due to baseline dementia, rt Exam: 19:21 Constitutional: This is a well developed, well nourished patient who is awake, alert, rt and in no acute distress. Chest/axilla: Normal chest wall appearance and motion. Nontender with no deformity. No lesions are appreciated. Cardiovascular: Regular rate and rhythm with a normal S1 and S2. No gallops, murmurs, or rubs. Normal PMI, no JVD. No pulse deficits. Respiratory: Lungs have equal breath sounds bilaterally, clear to auscultation and percussion. No rales, rhonchi or wheezes noted. No increased work of breathing, no retractions or nasal flaring. Abdomen/GI: Soft, non-tender, with normal bowel sounds. No distension or tympany. No guarding or rebound. No evidence of tenderness throughout. Skin: Warm, dry with normal turgor. Normal color with no rashes, no lesions, and no evidence of cellulitis. MS/ Extremity: Pulses equal, no cyanosis. Neurovascular intact. Full, normal range of motion. Neuro: Awake and alert, GCS 15, oriented to person, place, time, and situation. Cranial nerves II-XII grossly intact. Motor strength 5/5 in all extremities. Sensory grossly intact. Cerebellar exam normal. Normal gait. 19:21 ECG was reviewed by the Attending Physician. rt Vital Signs: 17:28 BP 162 / 85; Pulse 70; Resp 17; Temp 97.8(O); Pulse Ox 99% ; rs5 18:39 BP 151 / 81; Pulse 74; Resp 17; Pulse Ox 99% on R/A; rs5 MDM: 17:35 Patient medically screened. rt 19:21 Differential Diagnosis: Dementia, CVA, cranial hemorrhage, electrolyte disturbance. rt Data reviewed: vital signs, nurses notes, EKG. Consideration of Admission/Observation Escalation of care including admission/observation considered. Family arrived, stated that patient is at baseline mental status, they feel comfortable taking the patient home and follow-up as an outpatient.. Counseling: I had a detailed discussion with the patient and/or guardian regarding the historical points, exam findings, and any diagnostic results supporting the discharge/admit diagnosis, the need for outpatient follow up, to return to the emergency department if symptoms worsen or persist or if there are any questions or concerns that arise at home. 05/22 17:57 Order name: Acetaminophen; Complete Time: 19:31 rt 05/22 17:57 Order name: Basic Metabolic Panel; Complete Time: 19:31 rt 05/22 17:57 Order name: CBC with Diff; Complete Time: 19:15 rt 05/22 17:57 Order name: ETOH Level; Complete Time: 19:31 rt 05/22 17:57 Order name: Hepatic Function; Complete Time: 19:31 rt 05/22 17:57 Order name: PT-INR; Complete Time: 19:15 rt 05/22 17:57 Order name: Ptt, Activated; Complete Time: 19:15 rt 05/22 17:57 Order name: Salicylate; Complete Time: 19:31 rt 05/22 17:57 Order name: CT Head Brain wo Cont; Complete Time: 19:05 rt 05/22 17:57 Order name: EKG; Complete Time: 17:58 rt 05/22 17:57 Order name: EKG - Nurse/Tech; Complete Time: 18:36 rt 05/22 17:57 Order name: IV Saline Lock; Complete Time: 18:36 rt 05/22 17:57 Order name: Labs collected and sent; Complete Time: 18:36 rt 05/22 17:57 Order name: Suicide Screening ([place]); Complete Time: 18:36 rt EC:21 Rate is 70 beats/min. QRS [place] is Normal. MS interval is normal. QRS interval is rt normal. QT interval is normal. No Q waves. T waves are Normal. No ST changes noted. Interpreted by me. Administered Medications: 18:20 Drug: Thiamine IV 100 mg IV at calculated rate once Route: IV; Rate: calculated rate; rs5 Site: left antecubital; 18:39 Follow up: Response: No adverse reaction rs5 19:43 Follow up: Response: No adverse reaction; IV Status: Completed infusion cp4 Disposition Summary: 05/22/24 19:18 Discharge Ordered Notes: Location: Home rt Problem: an ongoing problem rt Symptoms: are unchanged rt Condition: Stable rt Diagnosis - Vascular dementia rt Followup: rt - With: Private Physician - When: 2 - 3 days - Reason: Discharge Instructions: - Discharge Summary Sheet rt - Vascular Dementia rt Forms: - Medication Reconciliation Form rt - Antibiotic Education rt - Prescription Opioid Use rt - Patient Portal Instructions rt - Leadership Thank You Letter rt Signatures: Dispatcher [employer] Raad Salinas MD MD rt Jesus Lutz RN RN rs5 Dayan Arias cp4
--- NOTE | 2024-05-22 19:18 | ER ---
Nurse's Notes [facility] Name: Edmund Caballero Age: 73 yrs Sex: Male : 1950 Arrival Date: 05/22/2024 Time: 17:24 Bed 17 Private MD: Diagnosis: Vascular dementia Presentation: 05/22 17:28 Chief complaint: EMS states: Showed up at [facility] and didn't know where he was, rs5 staffed toned out EMS for wellness check. Coronavirus screen: At this time, the client does not indicate any symptoms associated with coronavirus-19. Ebola Screen: No symptoms or risks identified at this time. Initial Sepsis Screen: Does the patient meet any 2 criteria? Altered Mental Status. Does the patient have a suspected source of infection? No. Patient's initial sepsis screen is negative. Risk Assessment: Do you want to hurt yourself or someone else? Patient reports no desire to harm self or others. Onset of symptoms was May 22, 2024. Care prior to arrival: IV initiated. 18 GA, in the left antecubital area. 17:28 Method Of Arrival: EMS: [facility] rs5 17:28 Acuity: KIRK 3 rs5 17:31 Acuity: KIRK 2 hb Triage Assessment: 17:30 General: Appears in no apparent distress. comfortable, Behavior is calm, cooperative. rs5 Pain: Denies pain. Historical: - Allergies: 17:30 NKA; rs5 - PMHx: 17:30 CVA; hemorrhagic; High Cholesterol; Hypertension; Hernia; rs5 - PSHx: 17:30 Hernia sx; rs5 - Immunization history:: Adult Immunizations unknown. - Infectious Disease History:: Denies. - Social history:: Smoking status: unknown. - Family history:: not pertinent. Screenin:30 [facility] ED Fall Risk Assessment (Adult) History of falling in the last 3 months, rs5 including since admission No falls in past 3 months (0 pts) Confusion or Disorientation Yes (5 pts) Intoxicated or Sedated No (0 pts) Impaired Gait No (0 pts) Mobility Assist Device Used No (0 pt) Altered Elimination No (0 pt) Score/Fall Risk Level 0 - 2 = Low Risk Oriented to surroundings, Maintained a safe environment. Abuse screen: Denies threats or abuse. Nutritional screening: No deficits noted. Tuberculosis screening: No symptoms or risk factors identified. Assessment: 17:30 General: Appears in no apparent distress. comfortable, Behavior is calm, cooperative. rs5 Pain: Denies pain. Neuro: Level of Consciousness is awake, alert. 17:30 Cardiovascular: Patient's skin is warm and dry. Respiratory: Airway is patent rs5 Respiratory effort is even, unlabored, Respiratory pattern is regular, symmetrical. GI: Abdomen is round non-distended, Abd is soft and non tender X 4 quads. : No signs and/or symptoms were reported regarding the genitourinary system. EENT: No signs and/or symptoms were reported regarding the EENT system. Derm: Skin is intact, Skin is pink, warm \T\ dry. Musculoskeletal: Range of motion: intact in all extremities. 17:45 Reassessment: to bedside for C-SSRS screening, pt denies HI or SI ideation, provider rs5 notified. 19:40 Reassessment: Patient agitated and will not stay in room. Family asking for AMA paper. cp4 Dr. Rivera spoke with family. Agreed to discharge patient. Unable to get discharge vitals due to patient agitation. Vital Signs: 17:28 BP 162 / 85; Pulse 70; Resp 17; Temp 97.8(O); Pulse Ox 99% ; rs5 18:39 BP 151 / 81; Pulse 74; Resp 17; Pulse Ox 99% on R/A; rs5 ED Course: 17:27 Patient arrived in ED. rs5 17:30 Triage completed. rs5 17:30 Patient has correct armband on for positive identification. Fall risk band placed. rs5 Placed in gown. Bed in low position. Call light in reach. Side rails up X2. Adult w/ patient. 17:31 Raad Rivera MD is Attending Physician. rt 17:58 Jesus Lutz, AUNDREA is Primary Nurse. rs5 18:31 CT Head Brain wo Cont In Process Unspecified. EDMS 18:39 No provider procedures requiring assistance completed. rs5 19:40 Provided Education on: altered mental status.. cp4 19:40 intact, bleeding controlled, No redness/swelling at site. Pressure dressing applied. cp4 19:43 Arm band placed on right wrist. Patient placed in an exam room, on a stretcher. cp4 Administered Medications: 18:20 Drug: Thiamine IV 100 mg IV at calculated rate once Route: IV; Rate: calculated rate; rs5 Site: left antecubital; 18:39 Follow up: Response: No adverse reaction rs5 19:43 Follow up: Response: No adverse reaction; IV Status: Completed infusion cp4 Medication: 17:31 VIS not applicable for this client. rs5 Outcome: 19:18 Discharge ordered by MD. rt 19:40 Discharged to home ambulatory, cp4 19:40 Condition: stable 19:40 Discharge instructions given to soil sampler, Instructed on discharge instructions, follow up and referral plans. Demonstrated understanding of instructions, follow-up care, 19:44 Patient left the ED. cp4 Signatures: Dispatcher [employer] EDMS Chiquis Lopez RN RN hb Raad Rivera MD MD rt Jesus Lutz RN RN rs5 Dayan Arias cp4 Corrections: (The following items were deleted from the chart) 18:38 17:30 General: Appears in no apparent distress. comfortable, Behavior is calm, rs5 cooperative, rs5 18:38 17:45 Reassessment: to bedside for C-SSRS screening, pt denies HI or SI ideation. rs5 rs5
[2024-05-22 19:26] LABS: ALT/SGPT 20 U/L (16-61); AST/SGOT 23 U/L (15-37); Albumin/Globulin Ratio 1.4 (1.1-1.8); Alkaline Phosphatase 79 U/L (45-117); Anion Gap 7.6 mEq/L (5.0-15.0); BUN Blood Urea Nitrogen 10 mg/dL (7-18); Bicarbonate 26 mEq/L (21-32); Bilirubin Direct 0.2 mg/dL (0-0.2); Bilirubin Indirect, Calculated 0.7 mg/dL (0.2-0.8); Bilirubin Total 0.9 mg/dL (0.2-1.0); Globulin 2.8 g/dL (2.3-3.5); Glomerular Filtration Rate 75 ml/min (=/>90); Glucose Level 105 mg/dL (74-106); Potassium 3.6 mEq/L (3.5-5.1); Protein, Total 6.8 g/dL (6.4-8.2); Sodium Level 138 mEq/L (136-145)
[2024-05-22 19:51] VITALS: BP 151/81; TEMP 97.8; O2SAT 99
--- NOTE | 2024-05-24 10:31 | EKG ---
Test Date: 2024-05-22 Test Time: 18:32:30 Travelift Operator: JANENE MEASUREMENT RESULTS: Intervals: Rate: 70 DE: 152 QRSD: 80 QT: 402 QTc: 434 [place]: P: 51 DE: 152 QRS: 3 T: 32 INTERPRETIVE STATEMENTS: Normal sinus rhythm Minimal voltage criteria for LVH, may be normal variant Borderline ECG Compared to ECG 10/23/2023 15:48:25 No significant changes Electronically Signed On 05-24-24 10:30:50 CDT by [place]
== END 2024-05-22 19:44 | disposition home or self-care (01) ==
LOC: ER 17:24
DX: F01.50 Vascular dementia, unspecified severity, without behavioral disturbance, psychotic disturbance, mood disturbance, and anxiety (principal)
CPT/HCPCS: 96365; 93005; 85025; 80048; 36415; 85610; 80076; 85730; 70450; 99284; 80143; 80179; 82077; J3411

== ENCOUNTER 2024-05-23 10:54 | Emergency (ER) | payer OTHER ==
[2024-05-23] MEDS ORDERED: NA CHLORIDE 0.9% 1,000 ML ONE (11:15)
[2024-05-23 11:38] LABS: Absolute Lymphocytes (CBC) 0.9 K/uL (0.7-4.9); Absolute Monocytes 1.5 K/uL (0.1-1.3); Absolute Neutrophil 14.4 K/uL (1.8-8.0); Hematocrit 51.2 % (39.6-49.0); Hemoglobin 17.2 g/dL (13.6-17.9); Lymphocytes % 5.1 % (15.3-44.8); MCH 32.2 pg (27.0-35.0); MCHC 33.7 g/dL (32.0-36.0); MCV 95.6 fL (80-100); MPV 8.7 fL (7.6-11.3); Monocytes % 9.1 % (3.3-12.3); Neutrophils % 85.8 % (41.7-73.7); Platelets 197 thou/uL (152-406); RBC Red Blood Cell Count 5.36 M/uL (4.33-5.43); Red Cell Distribution Width 13.8 % (12.1-15.2)
[2024-05-23 11:40] LABS: PT Prothrombin Time 12.2 SECONDS (9.4-12.5); PTT, Activated Partial Thromb 35.8 SECONDS (24.3-36.9); Protime INR 1.11
[2024-05-23] MEDS ORDERED: LORazepam 2 MG/ML VIAL ONE (12:10)
[2024-05-23 12:15] LABS: Specific Gravity 1.019 (1.005-1.030); Sqamous Epithelial None Seen /HPF (None Seen); Urine Bacteria None Seen /HPF (<20); Urine Bilirubin NEGATIVE (Negative); Urine Blood 1+ (Negative); Urine Clarity Extremely Turbid (Clear); Urine Color Yellow (Yellow); Urine Culture Reflex Order NOT NEEDED; Urine Glucose NEGATIVE (Negative); Urine Ketones 1+ (Negative); Urine Microscopic Reflex YN ORDER UMIC; Urine Mucus Slight /HPF (None Seen); Urine Nitrite NEGATIVE (Negative); Urine Protein 1+ (Negative); Urine RBC <5 /HPF (None Seen); Urine Urobilinogen Normal (Normal); Urine WBC None Seen /HPF (<5); Urine pH 5.5 (5.0-7.0)
[2024-05-23 12:20] LABS: Barbiturates NEGATIVE (NEGATIVE); Benzodiazepines NEGATIVE (NEGATIVE); Cocaine NEGATIVE (NEGATIVE); METHAMPHETAM NEGATIVE (NEGATIVE); Methadone NEGATIVE (NEGATIVE); Opiates NEGATIVE (NEGATIVE); Phencyclidine NEGATIVE (NEGATIVE); THC Cannibis POSITIVE (NEGATIVE)
[2024-05-23 12:24] LABS: Blood Morphology Comment NOT SEEN (NOT SEEN); Platelet Estimate ADEQ; White Blood Cell Scan OK (OK)
--- NOTE | 2024-05-23 13:12 | RAD REPORT ---
EXAM DESCRIPTION: CT - Head C Spine Cap Wo Con - 05/23/2024 1:03 pm CLINICAL HISTORY: Trauma, head and neck injury. Chest, abdomen and pelvis pain. fall, found down COMPARISON: <Comparisons> TECHNIQUE: CT head without contrast. CT cervical spine without contrast with coronal and sagittal reformatted images. CT chest, abdomen and pelvis without contrast with coronal and sagittal reformatted images of the [facility]. All CT scans are performed using dose optimization technique as appropriate and may include automated exposure control or mA/KV adjustment according to patient size. FINDINGS: CT HEAD WITHOUT CONTRAST: No intracranial hemorrhage, hydrocephalus or extra-axial fluid collection. Moderate generalized brain atrophy is present with mild periventricular and deep white matter chronic microvascular ischemic ch anges. Gliosis is seen left occipital pole related to old infarct. The paranasal sinuses and mastoids are clear. The calvarium is intact. CT CERVICAL SPINE WITHOUT CONTRAST: No fracture or subluxation. Moderate cervical degenerative changes. The prevertebral soft tissues are normal in thickness. CT CHEST, ABDOMEN, PELVIS WITHOUT CONTRAST: NOTE: Lack of contrast is a significant limitation in the assessment of trauma related findings. Spec ifically, solid organ, vascular and bowel evaluation is significantly limited. The lungs are clear.No pneumothorax or pericardial/pleural fluid. No evidence of intra-abdominal visceral injury, free fluid or free air is seen within the above detai led limitations. Small calculi are seen in the calices of both kidney. Cholelithiasis. Prominent multilevel degenerative changes lumbar spine. No fractures. Bone assessment is limited by motion artifact. IMPRESSION: Negative for acute traumatic findings within the above detailed limitations.
--- NOTE | 2024-05-23 15:43 | EDPHYS ---
Physician Documentation [facility] Name: Edmund Caballero Age: 73 yrs Sex: Male : 1950 Arrival Date: 05/23/2024 Time: 10:54 Bed 6 Private MD: ED Physician Carlyle Kingston HPI: 05/23 11:21 This 73 yrs old Male presents to ER via EMS with complaints of AMS. rn 11:21 The patient presents with confusion. Onset: The symptoms/episode began/occurred at an rn unknown time. Associated signs and symptoms: Pertinent positives: confusion, Pertinent negatives: abdominal pain, chest pain, headache, seizure, shortness of breath. Current symptoms: In the emergency department the patient's symptoms are unchanged from the initial presentation. The patient has experienced similar episodes in the past. The patient has been recently seen at the [facility] Emergency Department. Patient brought in by EMS for altered mental status and possible fall. Per report patient was found down inside of the house. Was just here yesterday with negative workup and confusion then as well. Patient was wandering around confused yesterday. Patient denies any injury or pain but he does not recall a fall. Patient repeatedly states "I do not feel right".. Historical: - Allergies: 11:04 NKA; ph - PMHx: 11:04 CVA; hemorrhagic; Hernia; High Cholesterol; Hypertension; ph - PSHx: 11:04 Hernia sx; ph - Immunization history:: Adult Immunizations unknown. - Infectious Disease History:: unable to obtain. - Social history:: Smoking status: unknown Patient uses alcohol. - Family history:: not pertinent. - Hospitalizations: : No recent hospitalization is reported. ROS: 11:21 Constitutional: Negative for fever, chills, and weight loss, Neck: Negative for injury, rn pain, and swelling, Cardiovascular: Negative for chest pain, palpitations, and edema, Respiratory: Negative for shortness of breath, cough, wheezing, and pleuritic chest pain, Abdomen/GI: Negative for abdominal pain, nausea, vomiting, diarrhea, and constipation, Back: Negative for injury and pain, MS/Extremity: Negative for injury and deformity, Skin: Negative for injury, rash, and discoloration, Neuro: Negative for headache, weakness, numbness, tingling, and seizure, Exam: 11:21 Constitutional: This is a well developed, well nourished patient who is awake, alert, rn exhibits psychomotor agitation but redirectable Head/Face: Normocephalic, atraumatic. ENT: Dry mucous membranes. Neck: No midline cervical tenderness Cardiovascular: Regular rate and rhythm. No pulse deficits. Respiratory: No increased work of breathing, no retractions or nasal flaring. Abdomen/GI: Soft, nontender Back: No spinal tenderness. No costovertebral tenderness. Full range of motion. MS/ Extremity: Pulses equal, no cyanosis. Neurovascular intact. Full, normal range of motion. Equal circumference. Neuro: Awake and alert, GCS 15, oriented to person but not place or time. Moves all 4 extremities with equal strength. Easily redirectable. Does seem confused and repeats phrases frequently. Vital Signs: 11:00 BP 127 / 89; Pulse 86; Resp 20; Temp 97.9; Pulse Ox 100% on R/A; Weight 68.04 kg; ph 11:49 BP 117 / 77; Pulse 67; Resp 18; Pulse Ox 100% on R/A; ph 13:07 BP 150 / 85; Pulse 75; Resp 18 S; Pulse Ox 99% on R/A; kc6 14:39 BP 118 / 78; Pulse 75; Resp 18; Pulse Ox 98% on R/A; ph MDM: 10:55 Patient medically screened. rn 15:39 Differential Diagnosis: CVA, electrolyte abnormality, alcohol intoxication, rn hypoglycemia, volume depletion. Differential Diagnosis: UTI. Data reviewed: vital signs, nurses notes. Data reviewed: lab test result(s), radiologic studies, CT scan, and as a result, I will discharge patient. Consideration of Admission/Observation Escalation of care including admission/observation considered. Escalation considered but not done after talking to family member. Daughter states that this has been ongoing for the last couple of months worse over the last 2 weeks and has had several strokes in the past with resultant dementia. Patient evaluated yesterday without acute findings and again today without acute findings. Patient likely with vascular dementia and he is on another stepwise decline. Daughter anticipated this and has appointment this week with memory care unit. She plans on taking him home today and will watch him until she finds care for him. I have personally reviewed all of the results, including but not limited to blood tests and imaging deemed necessary to safely discharge this patient at this time. All results given to and printed out for patient. I personally went over all the results with the patient and answered all questions. Patient will follow-up with PCP and or specialist as discussed. Return precautions given and understood.. Care significantly affected by the following chronic conditions: Strokes, hypertension. Counseling: I had a detailed discussion with the patient and/or guardian regarding the historical points, exam findings, and any diagnostic results supporting the discharge/admit diagnosis, lab results, radiology results, the need for outpatient follow up, to return to the emergency department if symptoms worsen or persist or if there are any questions or concerns that arise at home. Special discussion: I discussed with the patient/guardian in detail that at this point there is no indication for admission to the hospital. It is understood, however, that if the symptoms persist or worsen the patient needs to return immediately for re-evaluation. 05/23 10:57 Order name: CBC with Diff; Complete Time: 12:25 rn 05/23 10:57 Order name: Urinalysis w/ reflexes; Complete Time: 12:20 rn 05/23 10:57 Order name: ETOH Level; Complete Time: 12:09 rn 05/23 10:57 Order name: Urine Drug Screen; Complete Time: 12:20 rn 05/23 10:57 Order name: Protime (+inr); Complete Time: 11:43 rn 05/23 10:57 Order name: Ptt, Activated; Complete Time: 11:43 rn 05/23 12:24 Order name: CBC Smear Scan; Complete Time: 12:25 EDPR 05/23 13:05 Order name: Head C Spine Cap Wo Con; Complete Time: 13:30 EDPR 05/23 10:57 Order name: IV Start; Complete Time: 11:13 rn 05/23 10:57 Order name: Cardiac monitoring; Complete Time: 11:13 rn 05/23 10:57 Order name: O2 Sat Monitoring; Complete Time: 11:13 rn 05/23 10:57 Order name: Glucose Level; Complete Time: 11:13 rn Administered Medications: 11:27 Drug: NS 0.9% IV 1000 ml IV at 1000 ml once Route: IV; Rate: 1000 ml; Site: left kc6 antecubital; 12:13 Drug: Ativan IVP 1 mg IVP once Route: IVP; Site: left antecubital; ph 13:07 Follow up: Response: No adverse reaction; Anxiety unchanged; RASS: Restless (+1) kc6 12:31 Drug: Ativan IVP 1 mg IVP once Route: IVP; Site: left antecubital; ph 13:08 Follow up: Response: No adverse reaction; Anxiety decreased; RASS: Alert and Calm (0) kc6 Disposition Summary: 05/23/24 15:42 Discharge Ordered Notes: Location: Home rn Problem: new rn Symptoms: have improved rn Condition: Stable rn Diagnosis - Vascular dementia rn - Restlessness and agitation rn Followup: rn - With: Private Physician - When: As needed - Reason: Recheck today's complaints, Re-evaluation by your physician Discharge Instructions: - Discharge Summary Sheet rn - Vascular Dementia rn Forms: - Medication Reconciliation Form rn - Antibiotic creative intern - Prescription Opioid Use rn - Patient Portal Instructions rn - Leadership Thank You Letter rn Signatures: Dispatcher [employer] EDMS Carlyle Kingston MD MD rn Hall, Patricia, RN RN [facility] Corrections: (The following items were deleted from the chart) 10:58 10:58 CBC+H.LAB.BRZ ordered. EDMS EDMS 10:58 10:58 Urinalysis+U.LAB.BRZ ordered. EDMS EDMS 10:58 10:58 ETHANOL+C.LAB.BRZ ordered. EDMS EDMS 10:58 10:58 URINE DRUG SCREEN+UC.LAB.BRZ ordered. EDMS EDMS 10:58 10:58 PROTIME (+INR)+COAG.LAB.BRZ ordered. EDMS EDMS 10:58 10:58 PTT, ACTIVATED+COAG.LAB.BRZ ordered. EDMS EDMS 13:05 10:58 Head C Spine CAP W Con+CT.RAD.BRZ ordered. EDMS EDMS
--- NOTE | 2024-05-23 15:43 | ER ---
Nurse's Notes [facility] Name: Edmund Caballero Age: 73 yrs Sex: Male : 1950 Arrival Date: 05/23/2024 Time: 10:54 Bed 6 Private MD: Diagnosis: Vascular dementia;Restlessness and agitation Presentation: 05/23 11:00 Chief complaint: EMS states: Pt found on ground by daughter, estimated to have been ph down for approx 30 minutes, VSS for EMS BGL 107, pt presents to ED w/ AMS, smelling of urine. Coronavirus screen: Vaccine status: unable to obtain. Ebola Screen: No symptoms or risks identified at this time. Initial Sepsis Screen: Does the patient meet any 2 criteria? No. Patient's initial sepsis screen is negative. Does the patient have a suspected source of infection? No. Patient's initial sepsis screen is negative. Risk Assessment: Do you want to hurt yourself or someone else? Patient reports no desire to harm self or others. Onset of symptoms was May 23, 2024. 11:00 Method Of Arrival: EMS: [facility] ph 11:00 Acuity: KIRK 2 ph Triage Assessment: 11:05 General: Appears unkempt, Behavior is anxious, restless. Pain: Denies pain. Neuro: ph Level of Consciousness is awake, alert, confused, Oriented to person. Cardiovascular: Capillary refill < 3 seconds in bilateral fingers Patient's skin is warm and dry. Respiratory: Airway is patent Respiratory effort is even, unlabored. Derm: Bruising that is bright red, on right elbow. Musculoskeletal: Circulation, motion, and sensation intact. Range of motion: intact in all extremities. Historical: - Allergies: 11:04 NKA; ph - PMHx: 11:04 CVA; hemorrhagic; Hernia; High Cholesterol; Hypertension; ph - PSHx: 11:04 Hernia sx; ph - Immunization history:: Adult Immunizations unknown. - Infectious Disease History:: unable to obtain. - Social history:: Smoking status: unknown Patient uses alcohol. - Family history:: not pertinent. - Hospitalizations: : No recent hospitalization is reported. Screenin:06 [facility] ED Fall Risk Assessment (Adult) History of falling in the last 3 months, ph including since admission Yes- fall prone (multiple falls) (3 pts) Confusion or Disorientation Yes (5 pts) Intoxicated or Sedated No (0 pts) Impaired Gait Yes (1 pt) Mobility Assist Device Used No (0 pt) Altered Elimination No (0 pt) Score/Fall Risk Level 3 or more points = High Risk Oriented to surroundings, Maintained a safe environment, Hourly rounding (assess needs \T\ fall precautionary measures) done, Used ambulatory aids as needed (educated on \T\ assisted with), Utilized family, sitter, or virtual juvenile detention officer as indicated. Abuse screen: Denies threats or abuse. Denies injuries from another. Nutritional screening: No deficits noted. Tuberculosis screening: No symptoms or risk factors identified. Assessment: 11:28 General: Appears in no apparent distress. uncomfortable, unkempt, well developed, kc6 Behavior is anxious, restless, Smells of urine. Pain: Unable to use pain scale. Patient is disoriented. Neuro: Level of Consciousness is awake, alert, confused, Oriented to person. Cardiovascular: Capillary refill < 3 seconds. Respiratory: Airway is patent Trachea midline Respiratory effort is even, unlabored, Respiratory pattern is regular, symmetrical. GI: No signs and/or symptoms were reported involving the gastrointestinal system. : No signs and/or symptoms were reported regarding the genitourinary system. EENT: No signs and/or symptoms were reported regarding the EENT system. Derm: No signs and/or symptoms reported regarding the dermatologic system. Skin is intact, is healthy with good turgor, Skin is pink, warm \T\ dry. Musculoskeletal: No signs and/or symptoms reported regarding the musculoskeletal system. Circulation, motion, and sensation intact. Capillary refill < 3 seconds, Range of motion: intact in all extremities. 12:28 Reassessment: Patient appears in no apparent distress at this time. No changes from kc6 previously documented assessment. Patient and/or family updated on plan of care and expected duration. Pain level reassessed. 13:08 Reassessment: Patient appears in no apparent distress at this time. Patient and/or ph family updated on plan of care and expected duration. Pain level reassessed. 14:39 Reassessment: Patient appears in no apparent distress at this time. Patient and/or ph family updated on plan of care and expected duration. Pain level reassessed. 15:29 Reassessment: Patient appears in no apparent distress at this time. No changes from ph previously documented assessment. Patient and/or family updated on plan of care and expected duration. Pain level reassessed. Vital Signs: 11:00 BP 127 / 89; Pulse 86; Resp 20; Temp 97.9; Pulse Ox 100% on R/A; Weight 68.04 kg; ph 11:49 BP 117 / 77; Pulse 67; Resp 18; Pulse Ox 100% on R/A; ph 13:07 BP 150 / 85; Pulse 75; Resp 18 S; Pulse Ox 99% on R/A; kc6 14:39 BP 118 / 78; Pulse 75; Resp 18; Pulse Ox 98% on R/A; ph ED Course: 10:55 Patient arrived in ED. rn 10:55 Carlyle Kingston MD is Attending Physician. rn 11:04 Triage completed. ph 11:06 Arm band placed on Patient placed in an exam room. ph 11:08 Patient has correct armband on for positive identification. Bed in low position. Call ph light in reach. Side rails up X2. Pulse ox on. NIBP on. 11:13 Arline Lacy RN is Primary Nurse. kc6 11:13 Inserted saline lock: 20 gauge in left antecubital area, using aseptic technique. Blood kc6 collected. 11:13 Initial lab(s) drawn, by ED staff, sent to lab. Urine collected: clean catch specimen, ph geovanni colored. 11:28 Door closed. Noise minimized. Lights dimmed. Warm blanket given. Pillow given. Cleaned kc6 of incontinence. Linen changed. 12:07 Urine Drug Screen Sent. ph 12:07 Urinalysis w/ reflexes Sent. ph 13:05 Head C Spine Cap Wo Con In Process Unspecified. EDMS Administered Medications: 11:27 Drug: NS 0.9% IV 1000 ml IV at 1000 ml once Route: IV; Rate: 1000 ml; Site: left kc6 antecubital; 12:13 Drug: Ativan IVP 1 mg IVP once Route: IVP; Site: left antecubital; ph 13:07 Follow up: Response: No adverse reaction; Anxiety unchanged; RASS: Restless (+1) kc6 12:31 Drug: Ativan IVP 1 mg IVP once Route: IVP; Site: left antecubital; ph 13:08 Follow up: Response: No adverse reaction; Anxiety decreased; RASS: Alert and Calm (0) kc6 Medication: 11:08 VIS not applicable for this client. ph Outcome: 15:42 Discharge ordered by . rn 15:55 Patient left the ED. ph Signatures: Dispatcher [employer] EDMS Carlyle Kingston MD MD rn Hall, Patricia, RN RN ph Campbell, Kaitlyn, RN RN kc6
[2024-05-23 16:06] VITALS: BP 118/78; TEMP 97.9; O2SAT 98
== END 2024-05-23 15:55 | disposition home or self-care (01) ==
LOC: ER 10:54
DX: F01.50 Vascular dementia, unspecified severity, without behavioral disturbance, psychotic disturbance, mood disturbance, and anxiety (principal); R45.1 Restlessness and agitation; Z86.73 Personal history of transient ischemic attack (TIA), and cerebral infarction without residual deficits
CPT/HCPCS: 85025; 81001; 36415; 85610; 85730; 80307; 70450; 71250; 72125; 96374; 99284; 82077; J7030

== ENCOUNTER 2024-07-19 17:07 | Emergency (ER) | payer OTHER ==
--- NOTE | 2024-07-19 17:39 | ER ---
Nurse's Notes [facility] [place] Name: Edmund Caballero Age: 74 yrs Sex: Male : 1950 Arrival Date: 07/19/2024 Time: 17:07 Bed IW10 Private MD: Diagnosis: Presentation: 07/19 17:26 Chief complaint: Patient's son or daughter states: patient was recently discharged from [address], and got aggravated when she did not allow him to have a cigar. patient went wondering around outside to "cool off". family reports his go to place is the hospital. patient has no complaints. 17:34 Chief complaint:. ap3 17:36 Coronavirus screen: At this time, the client does not indicate any symptoms associated [facility] with coronavirus-19. Ebola Screen: No symptoms or risks identified at this time. Initial Sepsis Screen: Does the patient meet any 2 criteria? HR > 90 bpm. No. Patient's initial sepsis screen is negative. Does the patient have a suspected source of infection? No. Patient's initial sepsis screen is negative. Risk Assessment: Do you want to hurt yourself or someone else? Patient reports no desire to harm self or others. Onset of symptoms is unknown. 17:36 Method Of Arrival: Ambulatory ap3 17:36 Acuity: KIRK 5 ap3 Triage Assessment: 17:37 General: Appears in no apparent distress. Behavior is calm, cooperative, appropriate ap3 for age. Pain: Denies pain. Neuro: Level of Consciousness is awake, alert, obeys commands, Oriented to person, place, Appropriate for age. Cardiovascular: Patient's skin is warm and dry. Respiratory: Airway is patent Respiratory effort is even, unlabored, Respiratory pattern is regular, symmetrical. Historical: - Allergies: 17:37 NKA; ap3 - PMHx: 17:37 CVA; hemorrhagic; Hernia; High Cholesterol; Hypertension; ap3 - PSHx: 17:37 Hernia sx; ap3 - Social history:: Smoking status: Patient reports the use of cigarette tobacco products, cigars. Screenin:38 Abuse screen: Denies threats or abuse. Nutritional screening: No deficits noted. ap3 Tuberculosis screening: No symptoms or risk factors identified. Assessment: 17:38 Reassessment: patient reports he will leave with grandson after triage. ap3 Vital Signs: 17:36 BP 126 / 72; Pulse 113; Resp 17; Temp 98.2; Pulse Ox 98% ; Pain 0/10; ap3 17:36 Pain Scale: Adult ap3 ED Course: 17:08 Patient arrived in ED. mg5 17:08 Kristian Chinchilla PA is PHCP. cp 17:08 Charisse Esteban MD is Attending Physician. cp 17:37 Triage completed. ap3 17:38 Arm band placed on right wrist. ap3 17:38 No provider procedures requiring assistance completed. Patient did not have IV access ap3 during this emergency room visit. Administered Medications: No medications were administered Outcome: 17:39 Patient left the ED. ap3 Signatures: Kristian Chinchilla PA PA cp Prokisch, Amanda, RN RN ap3 Ana Lilia Knight mg5 Corrections: (The following items were deleted from the chart) 17:38 17:38 Reassessment: patient wishes to leave with grandson after triage ap3 ap3
[2024-07-19 18:36] VITALS: BP 126/72; TEMP 98.2; O2SAT 98
== END 2024-07-19 17:39 | disposition left against medical advice (07) ==
LOC: ER 17:07
DX: Z53.21 Procedure and treatment not carried out due to patient leaving prior to being seen by health care provider (principal)
CPT/HCPCS: 99281

== ENCOUNTER 2024-07-24 13:57 | Emergency (ER) | payer OTHER ==
--- NOTE | 2024-07-24 15:14 | EDPHYS ---
Physician Documentation [facility] Name: Edmund Caballero Age: 74 yrs Sex: Male : 1950 Arrival Date: 07/24/2024 Time: 13:57 Bed 15 Private MD: ED Physician Kristian Yusuf HPI: 07/24 15:09 This 74 yrs old Male presents to ER via Wheelchair with complaints of Not abhilash feeling well. 15:09 weak , dementia, wandering away. Onset: The symptoms/episode began/occurred 1 week(s) abhilash ago. Severity of symptoms: At their worst the symptoms were mild in the emergency department the symptoms are unchanged. The patient has experienced similar episodes in the past, multiple times. Historical: - Allergies: 14:06 NKA; ld1 - PMHx: 14:06 CVA; hemorrhagic; Hernia; High Cholesterol; Hypertension; ld1 - PSHx: 14:06 Hernia sx; ld1 - Immunization history:: Adult Immunizations up to date, . - Infectious Disease History:: Denies. - Social history:: Smoking status: Patient denies any tobacco usage or history of. Patient/guardian denies using alcohol. - Family history:: not pertinent. ROS: 15:09 Constitutional: Negative for fever, chills, and weight loss, Eyes: Negative for injury, abhilash pain, redness, and discharge, ENT: Negative for injury, pain, and discharge, Neck: Negative for injury, pain, and swelling, Cardiovascular: Negative for chest pain, palpitations, and edema, Respiratory: Negative for shortness of breath, cough, wheezing, and pleuritic chest pain, Abdomen/GI: Negative for abdominal pain, nausea, vomiting, diarrhea, and constipation, Back: Negative for injury and pain, : Negative for injury, bleeding, discharge, and swelling, MS/Extremity: Negative for injury and deformity, Skin: Negative for injury, rash, and discoloration, Psych: Negative for depression, anxiety, suicide ideation, homicidal ideation, and hallucinations, Allergy/Immunology: Negative for hives, rash, and allergies, Endocrine: Negative for neck swelling, polydipsia, polyuria, polyphagia, and marked weight changes, 15:09 Neuro: Positive for weakness, Exam: 15:09 Constitutional: This is a well developed, well nourished patient who is awake, alert, abhilash and in no acute distress. Head/Face: Normocephalic, atraumatic. Eyes: Pupils equal round and reactive to light, extra-ocular motions intact. Lids and lashes normal. Conjunctiva and sclera are non-icteric and not injected. Cornea within normal limits. Periorbital areas with no swelling, redness, or edema. ENT: Nares patent. No nasal discharge, no septal abnormalities noted. Tympanic membranes are normal and external auditory canals are clear. Oropharynx with no redness, swelling, or masses, exudates, or evidence of obstruction, uvula midline. Mucous membranes moist. Neck: Trachea midline, no thyromegaly or masses palpated, and no cervical lymphadenopathy. Supple, full range of motion without nuchal rigidity, or vertebral point tenderness. No Meningismus. Chest/axilla: Normal chest wall appearance and motion. Nontender with no deformity. No lesions are appreciated. Cardiovascular: Regular rate and rhythm with a normal S1 and S2. No gallops, murmurs, or rubs. Normal PMI, no JVD. No pulse deficits. Respiratory: Lungs have equal breath sounds bilaterally, clear to auscultation and percussion. No rales, rhonchi or wheezes noted. No increased work of breathing, no retractions or nasal flaring. Abdomen/GI: Soft, non-tender, with normal bowel sounds. No distension or tympany. No guarding or rebound. No evidence of tenderness throughout. Back: No spinal tenderness. No costovertebral tenderness. Full range of motion. Male : Normal genitalia with no discharge or lesions. Skin: Warm, dry with normal turgor. Normal color with no rashes, no lesions, and no evidence of cellulitis. MS/ Extremity: Pulses equal, no cyanosis. Neurovascular intact. Full, normal range of motion. Neuro: Awake and alert, GCS 15, oriented to person, place, time, and situation. Cranial nerves II-XII grossly intact. Motor strength 5/5 in all extremities. Sensory grossly intact. Cerebellar exam normal. Normal gait. Psych: Awake, alert, with orientation to person, place and time. Behavior, mood, and affect are within normal limits. 15:09 ECG was reviewed by the Attending Physician. 15:09 Musculoskeletal/extremity: DVT Exam: No signs of deep vein thrombosis. no pain, no swelling, no tenderness, negative Homans' sign noted on exam, no appreciated bluish discoloration, no erythema, no increased warmth, Vital Signs: 14:04 BP 180 / 93; Pulse 110; Resp 18; Temp 97.5(TE); Pulse Ox 99% on R/A; Height 5 ft. 10 ld1 in. ; Pain 0/10; 14:26 BP 174 / 96; Pulse 104; Resp 18; Temp 98; Pulse Ox 97% on R/A; kj2 14:04 Pain Scale: Adult ld1 MDM: 14:03 Patient medically screened. [facility] 15:12 Differential Diagnosis altered mental status, sepsis, flu. Data reviewed: vital signs, [facility] nurses notes. Consideration of Admission/Observation Escalation of care including admission/observation considered. I considered the following discharge prescriptions or medication management in the emergency department Medications were administered in the Emergency Department. See MAR. Test considered but Not performed: Other Details daughter refused all labs , cts, wants to go home. Care significantly affected by the following chronic conditions: Hypertension, cva, hernia, cholesterol, htn. 07/24 14:11 Order name: Cardiac monitoring; Complete Time: 14:55 [facility] 07/24 14:11 Order name: EKG - Nurse/Tech; Complete Time: 14:55 [facility] 07/24 14:11 Order name: IV Saline Lock [facility] 07/24 14:11 Order name: Labs collected and sent [facility] 07/24 14:11 Order name: O2 Per Protocol; Complete Time: 14:57 [facility] 07/24 14:11 Order name: O2 Sat Monitoring; Complete Time: 14:57 [facility] EC:09 Rate is 98 beats/min. QRS [place] is Normal. [place] interval is normal. QRS interval is abhilash normal. No Q waves. T waves are Normal. No ST changes noted. Clinical impression: NSR w/ Non-specific ST/T Changes and No evidence of ischemia. Interpreted by me. Reviewed by me. Administered Medications: No medications were administered Disposition Summary: 07/24/24 15:14 Discharge Ordered Notes: Location: Home abhilash Problem: new abhilash Symptoms: have improved abhilash Condition: Stable abhilash Diagnosis - Weakness abhilash - Dementia in other diseases classified elsewhere without behavioral disturbance abhilash Followup: abhilash - With: Private Physician - When: 2 - 3 days - Reason: Recheck today's complaints, Continuance of care, Re-evaluation by your physician Followup: abhilash - With: Pradeep Conner MD - When: 2 - 3 days - Reason: Recheck today's complaints, Re-evaluation by your physician Discharge Instructions: - Discharge Summary Sheet abhilash - Dementia abhilash - Weakness abhilash - Weakness, [id number] abhilash - Deconditioning abhilash - Dementia, Ococ-sg-Anqa abhilash - Dementia Caregiver Guide [facility] Forms: - Medication Reconciliation Form abhilash - Antibiotic Education abhilash - Prescription Opioid Use abhilash - Patient Portal Instructions abhilash - Leadership Thank You Letter [facility] Signatures: Dispatcher [employer] EDMS Kristian Yusuf MD MD cha Sims, Lauren, RN RN ld1 Corrections: (The following items were deleted from the chart) 14:11 14:11 BASIC METABOLIC PANEL+C.LAB.BRZ ordered. EDMS EDMS 14:11 14:11 CBC+H.LAB.BRZ ordered. EDMS EDMS 14:11 14:11 HEPATIC FUNCTION+C.LAB.BRZ ordered. EDMS EDMS 14:11 14:11 MAGNESIUM+C.LAB.BRZ ordered. EDMS EDMS 14:11 14:11 PROBNP+C.LAB.BRZ ordered. EDMS EDMS 14:11 14:11 PROTIME (+INR)+COAG.LAB.BRZ ordered. EDMS EDMS 14:11 14:11 Troponin High Sensitivity+C.LAB.BRZ ordered. EDMS EDMS 14:11 14:11 Urinalysis+U.LAB.BRZ ordered. EDMS EDMS 14:11 14:11 Chest Single View+RAD.RAD.BRZ ordered. EDMS EDMS 14:11 14:11 Head Brain Wo Cont+CT.RAD.BRZ ordered. EDMS EDMS
--- NOTE | 2024-07-24 15:14 | ER ---
Nurse's Notes [facility] Name: Edmund Caballero Age: 74 yrs Sex: Male : 1950 Arrival Date: 07/24/2024 Time: 13:57 Bed 15 Private MD: Diagnosis: Weakness;Dementia in other diseases classified elsewhere without behavioral disturbance Presentation: 07/24 14:04 Chief complaint: Patient states: Patient has aphasia from previous stroke. Pt c/o ld1 feeling different today - family reports no difference in patient at this time. Pt reports "stroke symptoms." Pt states "I am not feeling good.". Coronavirus screen: At this time, the client does not indicate any symptoms associated with coronavirus-19. Ebola Screen: No symptoms or risks identified at this time. 14:04 Method Of Arrival: Wheelchair ld1 14:07 Initial Sepsis Screen: Does the patient meet any 2 criteria? No. Patient's initial ld1 sepsis screen is negative. Does the patient have a suspected source of infection? No. Patient's initial sepsis screen is negative. Risk Assessment: Do you want to hurt yourself or someone else? Patient reports no desire to harm self or others. Onset of symptoms was July 24, 2024. 14:07 Acuity: KIRK 3 ld1 Triage Assessment: 14:06 General: Appears in no apparent distress. comfortable, Behavior is calm, cooperative, ld1 appropriate for age. Pain: Denies pain. EENT: No signs and/or symptoms were reported regarding the EENT system. Neuro: Level of Consciousness is awake, alert, obeys commands, Oriented to person, place, time, situation, Appropriate for age. Cardiovascular: Capillary refill < 3 seconds Patient's skin is warm and dry. Respiratory: Airway is patent Respiratory effort is even, unlabored. GI: Abdomen is flat, non-distended. : No signs and/or symptoms were reported regarding the genitourinary system. Derm: No signs and/or symptoms reported regarding the dermatologic system. Musculoskeletal: No signs and/or symptoms reported regarding the musculoskeletal system. Historical: - Allergies: 14:06 NKA; ld1 - PMHx: 14:06 CVA; hemorrhagic; Hernia; High Cholesterol; Hypertension; ld1 - PSHx: 14:06 Hernia sx; ld1 - Immunization history:: Adult Immunizations up to date, . - Infectious Disease History:: Denies. - Social history:: Smoking status: Patient denies any tobacco usage or history of. Patient/guardian denies using alcohol. - Family history:: not pertinent. Screenin:20 [facility] ED Fall Risk Assessment (Adult) History of falling in the last 3 months, kj2 including since admission Yes- single mechanical fall (1 pt) Confusion or Disorientation Yes (5 pts) Intoxicated or Sedated No (0 pts) Impaired Gait No (0 pts) Mobility Assist Device Used No (0 pt) Altered Elimination No (0 pt) Score/Fall Risk Level 0 - 2 = Low Risk Maintained a safe environment, Educated pt \\T\\ family on fall prevention, incl call for assistance when getting out of bed, Hourly rounding (assess needs \\T\\ fall precautionary measures) done. 14:23 Abuse screen: Denies threats or abuse. Denies injuries from another. Nutritional kj2 screening: No deficits noted. Tuberculosis screening: No symptoms or risk factors identified. Assessment: 14:24 General: Appears in no apparent distress. Behavior is calm. Pain: Denies pain. Neuro: kj2 Level of Consciousness is awake, confused, Oriented to person. Cardiovascular: Patient's skin is warm and dry. Respiratory: Airway is patent Respiratory effort is even, unlabored. GI: No deficits noted. : No deficits noted. 14:52 Reassessment: Patient/family request RN to ask for another physician while in the ER. kj2 She stated " I do not want Dr Yusuf, he does not listen'" Dr Yusuf made aware and Dr Perdue speaking to patient family member. 14:55 Reassessment:. kj2 15:07 Reassessment: patient/family left prior to discharge paperwork printed. kj2 15:17 Reassessment:. kj2 Vital Signs: 14:04 BP 180 / 93; Pulse 110; Resp 18; Temp 97.5(TE); Pulse Ox 99% on R/A; Height 5 ft. 10 ld1 in. ; Pain 0/10; 14:26 BP 174 / 96; Pulse 104; Resp 18; Temp 98; Pulse Ox 97% on R/A; kj2 14:04 Pain Scale: Adult ld1 ED Course: 13:58 Patient arrived in ED. mr 14:03 Kristian Yusuf MD is Attending Physician. [facility] 14:06 Arm band placed on right wrist. ld1 14:07 Triage completed. ld1 14:19 Karolyn Tobin, RN is Primary Nurse. kj2 14:26 No provider procedures requiring assistance completed. kj2 14:27 Patient has correct armband on for positive identification. Bed in low position. Call kj2 light in reach. Adult w/ patient. Provided Education on: call light, fall precautions. 14:45 Note: went to get for ct,, but brenda is refusing all medical care due to sj current medical provider issued. 15:09 EKG done, by materials engineering technician. reviewed by Kristian Yusuf MD. oh1 15:13 Pradeep Conner MD is Referral Physician. [facility] 15:19 Patient did not have IV access during this emergency room visit. kj2 Administered Medications: No medications were administered Medication: 14:23 VIS not applicable for this client. kj2 Outcome: 15:14 Discharge ordered by MD. [facility] 15:18 Discharged to home ambulatory, with family, kj2 15:18 Condition: stable 15:18 Discharge instructions given to family, 15:20 Patient left the ED. kj2 Signatures: Kristian Yusuf MD MD cha Rivera, Mary, Reg Reg mr Martines Roshni Mallika Gardiner, RN RN ld1 Karolyn Tobin, AUNDREA RN kj2 Josie Loera oh1 Corrections: (The following items were deleted from the chart) 15:04 14:52 Reassessment: Patient request RN to ask for another physician while in the ER. kj2 She stated " I do not want Dr Yusuf, he does not listen'" RN reported this to Dr Yusuf and ER director" kj2 15:18 15:07 Reassessment: patient/family chooses to leave AMA kj2 kj2
[2024-07-24 15:27] VITALS: BP 174/96; TEMP 98; O2SAT 97
--- NOTE | 2024-07-27 17:09 | EKG ---
Test Date: 2024-07-24 Test Time: 14:35:51 Ophthalmic Lens Inspector: CECILLE MEASUREMENT RESULTS: Intervals: Rate: 98 CT: 146 QRSD: 74 QT: 344 QTc: 439 [place]: P: 57 CT: 146 QRS: -14 T: 11 INTERPRETIVE STATEMENTS: Normal sinus rhythm Nonspecific T wave abnormality Abnormal ECG Compared to ECG 06/16/2024 22:43:50 Possible ischemia no longer present Prolonged QT interval no longer present T-wave abnormality still present Electronically Signed On 07-27-24 17:01:19 CDT by Ketan Prabhakar
== END 2024-07-24 15:20 | disposition home or self-care (01) ==
LOC: ER 13:57
DX: R53.1 Weakness (principal); F02.80 Dementia in other diseases classified elsewhere, unspecified severity, without behavioral disturbance, psychotic disturbance, mood disturbance, and anxiety; E78.00 Pure hypercholesterolemia, unspecified; I10 Essential (primary) hypertension; Z86.73 Personal history of transient ischemic attack (TIA), and cerebral infarction without residual deficits
CPT/HCPCS: 93005; 99283